=== PATIENT | female | born 1945 | race Caucasian/White ===

== ENCOUNTER → 2018-01-08 12:12 | Outpatient (CLI) | payer MEDICARE, SELFPAY ==
--- NOTE | 2018-01-08 12:37 | EKG12_ITS ---
Test Reason : PREOP Blood Pressure : / mmHG Vent. Rate : 068 BPM Atrial Rate : 068 BPM P-R Int : 170 ms QRS Dur : 106 ms QT Int : 436 ms P-R-T Axes : 066 -33 028 degrees QTc Int : 463 ms Sinus rhythm with frequent Premature ventricular complexes Left axis deviation Incomplete right bundle branch block Inferior infarct , age undetermined Abnormal ECG Confirmed by DIANE BRAXTON [id number]), writer editor RAJEEV ELIZABETH ([id number]) on 01/21/2018 4:55:45 PM Referred By: Vaughn Ramos Confirmed By:DIANE BRAXTON
[2018-01-08 13:25] LABS: Hematocrit 41.7 % (37-47); Hemoglobin 13.9 g/dl (12.0-15.0); Mean Corp Hgb Conc 33.3 g/gl (32-36); Mean Corpuscular Hgb 30.9 pg (27.0-32.0); Mean Corpuscular Volume 92.7 fL (81-99); Mean Platelet Vol. 10.9 fl (6.2-12.0); Platelet Count 227 K/mm3 (150-450); RBC Distribution Width CV 13.2 % (11.6-14.6); RBC Distribution Width SD 44.9 fl (35.1-43.9); White Blood Count 6.3 K/mm3 (4.4-11.0)
[2018-01-08 13:26] LABS: Scan Indicated on CBC? Y/N NO
[2018-01-08 13:47] LABS: Anion Gap 11 (5-15); BUN 11 mg/dL (7-18); BUN/Creat Ratio 13.8 RATIO (10-20); Calcium,Total 8.5 mg/dL (8.5-10.1); Chloride 106 mmol/L (98-107); EST Glomerular Filtration Rate 75 mL/min (>60); Est Glom Filt Rate - Afr Amer 91 mL/min (>60); Glucose 134 mg/dL (74-106); Sodium Level 141 mmol/L (136-145)
== END ==
PROVIDERS: Family Provider Family Medicine; PCP Family Medicine; Visit Provider Orthopaedic Surgery
DX: Z01.818 Encounter for other preprocedural examination (principal); Z01.810 Encounter for preprocedural cardiovascular examination
CPT/HCPCS: 36415; 80048; 85027; 93005

== ENCOUNTER → 2018-04-08 10:52 | Outpatient (CLI) | payer MEDICARE, SELFPAY | PROVIDERS: Family Provider Family Medicine; PCP Family Medicine; Visit Provider Internal Medicine Cardiovascular Disease | DX: I49.3 Ventricular premature depolarization (principal) | CPT/HCPCS: 93225; 93226 ==

== ENCOUNTER → 2018-05-14 10:55 | Outpatient (CLI) | payer MEDICARE, SELFPAY ==
[2018-05-14 12:35] LABS: AST(SGOT) 34 U/L (15-37); Alanine Aminotransfer ALT/SGPT 37 U/L (13-56); Albumin, Serum 3.9 g/dL (3.2-5.0); Alkaline Phosphatase 128 U/L (45-117); Bilirubin, Direct 0.35 mg/dL (0.00-0.30); Cholesterol 177 mg/dL (200); Globulin 3.5 g/dL (2.2-4.2); High Density Lipoprotein 70 mg/dL; Protein, Total 7.4 g/dL (6.4-8.2); Triglycerides 108 mg/dL; Very Low Density Lipoprotein 22 mg/dL (5-40)
[2018-05-14 16:03] LABS: Glucose, Dipstick Normal (Normal); Ketone-Dipstick Negative (Negative); Leukocyte Esterase-Dipstick 25 /ul (Negative); Nitrite-Dipstick Negative (Negative); Occult Blood-Urine Negative /ul (Negative); Protein-Dipstick Negative (Negative); Urine Bilirubin Dipstick Negative (Negative); Urine Urobilinogen Normal (Normal)
[2018-05-14 16:12] LABS: Color, Urine Yellow (Yellow); Urine Clarity Clear (Clear)
== END ==
PROVIDERS: Family Provider Family Medicine; PCP Family Medicine; Visit Provider Family Medicine
DX: E78.5 Hyperlipidemia, unspecified (principal); R30.0 Dysuria
CPT/HCPCS: 36415; 80061; 80076; 81002; 87077; 87086; 87088; 87186

== ENCOUNTER → 2018-07-09 09:59 | Outpatient (CLI) | payer MEDICARE, SELFPAY ==
--- NOTE | 2018-07-09 10:04 | BI_ITS ---
MAMMOGRAPHY - BILATERAL SCREENING REASON FOR EXAM: Female, 73 years old. Routine annual screening examination. PERTINENT HISTORY: Non-contributory. Remote left Sterotactic breast biopsy. TECHNIQUE: Digital bilateral breast onur (3D mammographic acquisition) in the CC and MLO projections. 2-D mediolateral oblique (MLO) and craniocaudad (CC) views of both breasts were obtained. CAD: Full Field Digital Mammography with Computer Added Detection was performed. COMPARISON: Comparison is made with prior study dated November 28, 2016 and August 12, 2015. FINDINGS: Breast Composition: There are scattered areas of fibroglandular density. There are no dominant masses or suspicious calcifications. A tissue clip marker is seen in the upper lateral portion of the left breast. A tiny residual nodule is seen at the biopsy site. Stable small benign-appearing bilateral axillary lymph nodes. No other significant abnormalities are identified. There has been no significant change since the prior study. BI/SCREENING MAMM (CAD), BILAT IMPRESSION: Stable bilateral screening mammogram. Yearly follow-up mammogram recommended. (A) ASSESSMENT CATEGORY: BIRADS Category 2: Benign. A letter regarding these results will be sent to the patient by the facility within 30 days. Approximately 10% of breast cancers are not detected by mammography. A normal mammogram should not delay biopsy of a clinically suspicious abnormality. [id number] Electronically Signed: Rohan Donnelly MD at 12:39 EST Tel [phone], Service support ,
== END ==
PROVIDERS: Family Provider Family Medicine; PCP Family Medicine; Referring Provider Family Medicine; Visit Provider Family Medicine
DX: Z12.31 Encounter for screening mammogram for malignant neoplasm of breast (principal)
CPT/HCPCS: 77063; 77067

== ENCOUNTER → 2019-02-20 08:39 | Outpatient (CLI) | payer MEDICARE, SELFPAY ==
[2018-04-02 13:11] VITALS: BMI 23.8
[2019-02-20 10:11] LABS: Absolute Lymphocyte Count 2.42 X10^3/ul (0.83-4.51); Absolute Neutrophil Count 2.2 X10^3/uL (2.0-7.7); Basophil# 0.05 X10^3/uL; Eosinophil# 0.18 X10^3/uL; Eosinophils% 3.5 % (0-5); Hematocrit 43.1 % (37-47); Hemoglobin 14.8 g/dl (12.0-15.0); Lymphocyte # 2.42 X10^3/ul (4.0); Lymphocyte % 46.7 % (19-41); Mean Corp Hgb Conc 34.3 g/gl (32-36); Mean Corpuscular Volume 90.2 fL (81-99); Mean Platelet Vol. 10.9 fl (6.2-12.0); Monocyte# 0.37 X10^3/uL; Monocyte% 7.1 % (0-10); Neutrophil # 2.16 X10^3/uL (2.7-7.7); Neutrophil % 41.7 % (47-70); Platelet Count 212 K/mm3 (150-450); RBC Distribution Width CV 12.8 % (11.6-14.6); RBC Distribution Width SD 41.7 fl (35.1-43.9); Red Blood Count 4.78 M/mm3 (4.2-5.4); White Blood Count 5.2 K/mm3 (4.4-11.0)
[2019-02-20 10:14] LABS: POSITIVE COUNT NO; POSITIVE DIFFERENTIAL NO; POSITIVE MORPHOLOGY NO
[2019-02-20 10:40] LABS: ALB/GLOB Ratio 1.2 RATIO (0.9-2.4); AST(SGOT) 22 U/L (15-37); Alanine Aminotransfer ALT/SGPT 19 U/L (13-56); Alkaline Phosphatase 89 U/L (45-117); Anion Gap 6 (5-15); BUN 20 mg/dL (7-18); Chloride 107 mmol/L (98-107); Cholesterol 218 mg/dL (200); Creatinine, Serum 0.87 mg/dL (0.55-1.02); EST Glomerular Filtration Rate 68 mL/min (>60); Est Glom Filt Rate - Afr Amer 82 mL/min (>60); Globulin 3.2 g/dL (2.2-4.2); Glucose 91 mg/dL (74-106); High Density Lipoprotein 66 mg/dL; Potassium 4.3 mmol/L (3.5-5.1); Protein, Total 7.2 g/dL (6.4-8.2); Sodium Level 139 mmol/L (136-145); Thyroid Stim Hormone (TSH) 2.24 uIU/mL (0.358-3.74); Triglycerides 119 mg/dL; Very Low Density Lipoprotein 24 mg/dL (5-40)
== END ==
PROVIDERS: Family Provider Family Medicine; PCP Family Medicine; Referring Provider Family Medicine; Visit Provider Family Medicine
DX: E78.5 Hyperlipidemia, unspecified (principal); E80.6 Other disorders of bilirubin metabolism; Z51.81 Encounter for therapeutic drug level monitoring
CPT/HCPCS: 36415; 80053; 80061; 84443; 85025

== ENCOUNTER → 2019-10-07 13:11 | Outpatient (CLI) | payer MEDICARE, SELFPAY ==
[2019-04-18 11:53] VITALS: BMI 23.7
[2019-10-07 15:30] LABS: Cholesterol 217 mg/dL (200); High Density Lipoprotein 69 mg/dL; Triglycerides 171 mg/dL; Very Low Density Lipoprotein 34 mg/dL (5-40)
== END ==
PROVIDERS: PCP Family Medicine; Referring Provider Family Medicine; Visit Provider Family Medicine
DX: E78.5 Hyperlipidemia, unspecified (principal)
CPT/HCPCS: 36415; 80061

== ENCOUNTER → 2019-10-21 08:32 | Outpatient (CLI) | payer MEDICARE, SELFPAY ==
[2019-04-18 11:53] VITALS: BMI 23.7
--- NOTE | 2019-10-21 08:35 | BI_ITS ---
MAMMOGRAPHY - BILATERAL SCREENING REASON FOR EXAM: Female, 74 years old. Routine annual screening examination. PERTINENT HISTORY: Non-contributory. Remote left stereotactic breast biopsy. TECHNIQUE: Digital bilateral breast alton (3D mammographic acquisition) in the CC and MLO projections. 2-D mediolateral oblique (MLO) and craniocaudad (CC) views of both breasts were obtained. CAD: Full Field Digital Mammography with Computer Added Detection was performed. COMPARISON: Comparison is made with prior study dated July 09, 2018 and November 28, 2016. FINDINGS: Breast Composition: There are scattered areas of fibroglandular density. There are no dominant masses or suspicious calcifications. A tissue clip marker is once again seen in the upper lateral aspect of the left breast. Stable small benign-appearing bilateral axillary lymph nodes. No other significant abnormalities are identified. There has been no significant change since the prior study. BI/SCREEN MAMM (CAD) W/ALTON BILAT IMPRESSION: Stable bilateral screening mammogram. Yearly follow-up mammogram recommended. (A) ASSESSMENT CATEGORY: BIRADS Category 2: Benign. A letter regarding these results will be sent to the patient by the facility within 30 days. Approximately 10% of breast cancers are not detected by mammography. A normal mammogram should not delay biopsy of a clinically suspicious abnormality. [id number] Electronically Signed: Rohan Donnelly, at 12:35 EDT , Service support ,
--- NOTE | 2019-10-21 08:57 | BD_ITS ---
STUDY: DUAL ENERGY X-RAY ABSORPTIOMETRY / DXA REASON FOR EXAM: Female, 74 years old. 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 COMPARISON: Comparison is made with prior examination dated November 28, 2016. FINDINGS: Lumbar Spine (L1-L4): g/cm2 (0.879) / T-score (-2.4) / Z-score (-0.6) Findings are suggestive of osteopenia with a high fracture risk. Left Femur Total: g/cm2 (0.859) / T-score (-1.2) / Z-score (0.5) Left Femoral Neck: g/cm2 (0.804) / T-score (-1.7) / Z-score (0.2) Right Femur Total: g/cm2 (0.834) / T-score (-1.4) / Z-score (0.3) Right Femoral Neck: g/cm2 (0.817) / T-score (-1.6) / Z-score (0.3) The T-Scores on the most recent prior examination were: Lumbar Spine (L1-L4): There has been worsening of bone density since the previous examination. Left Femur Total: which represents a worsening of 2.3%. Right Femur Total: which represents a worsening of 1.4%. BD/Dexa Bone Density Study IMPRESSION: The patient is considered osteopenic as outlined below according to World Satya Organization (WHO) criteria with a high fracture risk. There has been worsening of bone density since the previous examination. Reference Information: The T-score is the number of standard deviations above or below the standard which is normal for young adults at their peak bone mineral density. The World Health Organization (WHO) interprets the T-scores as follows: Above -1 Normal bone density Between -1 and -2.5 Osteopenia Equal to / or below -2.5 Osteoporosis As a practical clinical guideline, osteopenia may be graded as follows: Mild -1 through -1.5 Moderate -1.6 through -2.0 Severe -2.1 through -2.4 The Z-score is the number of standard deviations above or below age-matched controls. A Z-score of less than -1.5 would be considered abnormal. References: 1. NIH Osteoporosis and Related Bone Diseases http://www.osteo.org 2. International Society for Clinical Densitometry http://www.iscd.org 3. National Osteoporosis Foundation http://www.nof.org Electronically Signed: Rohan Donnelly, at 10:20 EDT , Service support ,
== END ==
PROVIDERS: PCP Family Medicine; Referring Provider Family Medicine; Visit Provider Family Medicine
DX: Z13.820 Encounter for screening for osteoporosis (principal); Z78.0 Asymptomatic menopausal state; Z12.31 Encounter for screening mammogram for malignant neoplasm of breast
CPT/HCPCS: 77063; 77067; 77080

== ENCOUNTER → 2019-10-31 11:10 | Outpatient (CLI) | payer MEDICARE, SELFPAY ==
[2019-04-18 11:53] VITALS: BMI 23.7
[2019-10-31 13:05] LABS: Vitamin D,25 Hydroxy 23.7 ng/mL
== END ==
PROVIDERS: PCP Family Medicine; Visit Provider Family Medicine
DX: M85.80 Other specified disorders of bone density and structure, unspecified site (principal)
CPT/HCPCS: 36415; 82306

== ENCOUNTER 2019-12-16 11:30 | Emergency (ER) | payer MEDICARE, SELFPAY ==
[2019-11-04 14:32] VITALS: BMI 24.9
[2019-12-16 11:31] VITALS: BP 145/100; PULSE 73; RESP 16; TEMP 36.6; O2SAT 98; BMI 25.6
--- NOTE | 2019-12-16 11:45 | ED.VISSUMM ---
- ER Visit Summary Date of Service: 12/16/19 Chief Complaint: Right knee pain History of Present Illness: The patient is a [address] Brizuela. She reports that just prior to coming emerge department she was loading shingles into a wearable area when it tipped over and caught the lateral portion of her right knee. She did fall. She denies any other injuries. No loss of consciousness. She not on anticoagulants. No neck, back, shoulder, hip or wrist pain. Patient reports that she has a dull, aching pain lateral right knee that is 8 out of 10 at worst and 5-10 currently. Is worsened by movement relieved by rest. She denies any other complaints. Physical Examination: Vitals: Stable. Afebrile. Neck: No vertebral tenderness. Full ROM without difficulty. Cleared by NEXUS criteria. Back: No vertebral tenderness. General: A&O x 3. NAD. Cardiovascular exam: Regular rate and rhythm, no murmur, rub or gallop. Respiratory exam: Chest nontender. No crepitus. Clear to auscultation bilaterally. No wheezes or stridor. Abdominal exam: Soft, nontender, nondistended, normal bowel sounds. No pain in RUQ or LUQ specifically. No peritoneal signs. Extremity: Moderate tenderness palpation over the lateral right knee. Mild diffuse tenderness outpatient. There is a moderate joint effusion. She is neuro vas intact distal this. Test Results: Clinical Impression(s) from Imaging Studies Knee X-Ray 12/16/19 11:55 IMPRESSION: Nondisplaced lateral tibial plateau fracture. Joint effusion with a fat -fluid level. Electronically Signed: Rohan Donnelly, at 12:13 EDT , Service support , Lower Extremity CT 12/16/19 12:24 IMPRESSION: Subtle nondisplaced lateral tibial plateau fracture with a joint effusion containing a fat fluid level. Electronically Signed: Rohan Donnelly, at 12:46 EDT , Service support , Emergency Department Course and Treatment: Patient refused pain medications. She is resting comfortably. She was placed in a knee immobilizer. Treatment Plan: Patient was discussed with Dr. Miguel Angel Herrera. She will be discharged with crutches and a knee immobilizer. She instructed be nonweightbearing. Follow-up with Dr. Ramos or Miguel Angel Herrera within the next week for another exam. Return to the emergency department for any worsening symptoms. Disposition: To home in improved and stable condition. Impression: 1. Lateral right tibial plateau fracture. This note was generated with Estately dictation software. It may contain incorrect words, spelling, and punctuation that were not noted in review of the chart prior to signing ED Disposition - Plan for ED Patient: Instructions: ED Fx Knee Prescriptions: Docusate Sodium [Colace] 100 mg PO DAILY #20 capsule Hydrocodone Bitart/Apap 5-325 [[place] 5MG-325MG] 1 tablet PO Q6H PRN PRN 3 Days #10 tablet PRN Reason: Pain Referrals: Miguel Angel Herrera MD [STAFF PHYSICIAN] - 1 Week
--- NOTE | 2019-12-16 11:55 | RAD_ITS ---
STUDY: X-RAY - RIGHT KNEE REASON FOR EXAM: Female, 74 years old. PAIN AND SWELLING TO RIGHT KNEE RADIATING DISTALLY. -- PATIENT UNABLE TO BARE WEIGHT ON HER KNEE. RIGHT KNEE INJURY. FELL AND HANDLE OF WHEELBARROW CAUGHT HER IN THE RIGHT KNEE. TECHNIQUE: 4 view(s) of the knee. COMPARISON: None. FINDINGS: Normal visualized distal femur. Nondisplaced fracture of the lateral tibial plateau with extension to the intercondylar eminence. Normal proximal tibiofibular articulation. Normal medial femorotibial compartment. Normal lateral femorotibial compartment. There is mild degenerative arthrosis of the patellofemoral articulation. Joint effusion with a fat- fluid level. RAD/Knee 4 or More Views IMPRESSION: Nondisplaced lateral tibial plateau fracture. Joint effusion with a fat -fluid level. Electronically Signed: Rohan Donnelly, at 12:13 EDT , Service support ,
--- NOTE | 2019-12-16 12:24 | CT_ITS ---
STUDY: CT RIGHT KNEE WITHOUT CONTRAST REASON FOR EXAM: Female, 74 years old. RT LEG INJURY WITH WHEEL [place] RADIATION DOSAGE (If Supplied By Facility): CTDIvol = ( 15.35 ) mGy, DLP = ( 361.44 ) mGycm TECHNIQUE: Transaxial CT imaging of the knee was performed. Coronal and sagittal images were reformatted. Individualized dose optimization techniques were used for this CT. COMPARISON: None. FINDINGS: Normal medial femoral condyle and medial tibial plateau. There is preservation of the articular joint space of the medial knee compartment. Subtle nondisplaced lateral tibial plateau fracture. This extends into the intercondylar eminence. There is preservation of the articular joint space of the lateral knee compartment. Normal proximal tibiofibular articulation. Joint effusion. The quadriceps tendon is grossly normal. The patellar tendon is grossly normal. Normal Hoffa''s fat pad. The soft tissues are unremarkable. CT/Extremity Lower without Contra IMPRESSION: Subtle nondisplaced lateral tibial plateau fracture with a joint effusion containing a fat fluid level. Electronically Signed: Rohan Donnelly, at 12:46 EDT , Service support ,
[2019-12-16] MEDS: Ondansetron ODT 4 MG Tablet PO (13:36)
[2019-12-16] MEDS: HYDROcodone Bitartrate/Apap 5/325 Tablet PO (13:36)
== END 2019-12-16 14:34 | disposition home or self-care (01) ==
LOC: ED 13:23
PROVIDERS: Emergency Provider Emergency Medicine; PCP Family Medicine
DX: S82.144A Nondisplaced bicondylar fracture of right tibia, initial encounter for closed fracture (principal); W18.09XA Striking against other object with subsequent fall, initial encounter; Y93.89 Activity, other specified; Y92.9 Unspecified place or not applicable
CPT/HCPCS: 73564; 73700; 99284

== ENCOUNTER 2020-02-18 19:19 | Emergency (ER) | payer MEDICARE, SELFPAY ==
[2020-02-18 19:20] VITALS: BP 115/77; PULSE 58; RESP 18; TEMP 36.5; O2SAT 96; BMI 22.5
== END 2020-02-18 19:52 | disposition left against medical advice (07) ==
LOC: ED 20:00
PROVIDERS: Emergency Provider Emergency Medicine; PCP Family Medicine
DX: R69 Illness, unspecified (principal); Z53.21 Procedure and treatment not carried out due to patient leaving prior to being seen by health care provider

== ENCOUNTER 2020-02-19 06:58 | Emergency (ER) | payer MEDICARE, SELFPAY ==
[2020-02-18 19:20] VITALS: BMI 22.5
[2020-02-19 06:59] VITALS: BP 153/91; PULSE 55; RESP 18; TEMP 36.1; O2SAT 97; BMI 22.8
--- NOTE | 2020-02-19 07:02 | VDLE_ITS ---
Reason For Study: Swelling RIGHT LEFT GSV is normal. CFV is compressible, spontaneous, phasic, CFV is compressible, spontaneous, phasic, competent, and demonstrates normal competent and demonstrates normal augmentation. augmentation. FV is compressible, spontaneous, phasic, competent and demonstrates normal augmentation. POP V is compressible, spontaneous, phasic, competent and demonstrates normal augmentation. T/P Trunk is compressible. PTV is compressible. RT PerV is compressible. Acute deep vein thrombosis is noted in the right gastroc vein. Nonvascualrized structure noted in the popliteal space measuring approximently 1.11 x 1.50 x 2.44 cm. Procedure Exam performed portable in ED. A preliminary report was called and/or faxed to RN. Interpretation Summary Acute deep venous thrombosis right gastrocnemius veins. No evidence for proximal progression. Patent and compressible right great saphenous vein. Right popliteal space nonvascular 1.11 x 1.50 x 2.44 cm structure location silverio consistent with a Montemayor's cyst--clinical correlation would be appropriate Patent and compressible left common femoral vein Ordering Physician: Vaughn Crocker Referring Physician: Wilson Brizuela Performed By: Anitra Corrales RVT
--- NOTE | 2020-02-19 07:02 | ED.VIS.GEN ---
History of Present Illness Chief Complaint: Lower Extremity Injury Informant: Patient Onset: Days Context: Gradual Onset Timing: Continuous Current Severity: Moderate Maximum Severity: Moderate Narrative: The patient is a 74-year-old female that presents to the emergency department with atraumatic right foot swelling. Patient recently had a tibial plateau fracture and. She was treated with immobilization for about 2 months. She recently came out of her immobilizer and has been walking. She is noticed that her foot has gotten swollen. She does describe some pain when she bears weight. She denies any fevers or chills. She denies any trauma. She had x-rays done at urgent care which were negative for acute fracture. She was sent in for further evaluation due to concern for DVT. She denies chest pain or shortness of breath. She is not on anticoagulants. Prior similar symptoms: No Recent Illness/Hospitalization: Yes Past Medical History - Allergies and Home Meds Allergies/Adverse Reactions: Allergies Sulfa (Sulfonamide Antibiotics) Allergy (Verified 02/19/20 06:59) doesnt know why doesnt know why Primary Care Physician: Wilson Brizuela DO [Primary Care Provider] - 3-5 Days Prior records reviewed: Yes Past Medical History: - - Osteoporosis, hypertension Surgical History: noncontributory Lives: With Family Smoking Status: Never smoker Review of Systems General: Denies: Chills, Fever, Sweats Eyes: Denies: Visual changes - bilaterally, Diplopia ENT: Denies: Rhinorrhea, Sore throat Cardiovascular: Denies: Chest pain, Palpitations Respiratory: Denies: Dyspnea, Cough, Dyspnea on exertion Gastrointestinal: Denies: Abdominal pain, Nausea, Vomiting, Diarrhea, Melena, Hematochezia Genitourinary: Denies: Dysuria, Hematuria, Frequency Musculoskeletal: Reports: Swelling, Extremity Pain. Denies: Back pain Skin: Denies: Rash, Wounds Neurological: Denies: Headache, Weakness, Numbness Physical Exam Vital Signs/Narrative: Vital Signs Temp Pulse Resp BP Pulse Ox 02/19/20 06:59 97 F L 55 L 18 153/91 H 97 Inital Vital Signs reviewed: Yes General: Well nourished, Well developed, No Acute Distress Head: Normocephalic, Atraumatic Eyes: Perrl, EOMI ENT: Moist mucous membranes, No rhinorrhea Neck: Supple, Nontender Cardiovascular: Regular rate, Regular rhythm, No murmurs Respiratory: No distress, CTA bilaterally, Chest nontender Abdomen: Soft, Nontender, Nondistended, Normal bowel sounds Back: Nontender, Normal Inspection Extremities: Nontender, No edema Skin: Normal color, No rash Neurological: Alert, Oriented x3, Cranial nerves II-XII grossly intact, Normal Strength, Normal Sensation Psychological: Normal affect, Normal Mood Diagnostic/Tx/Re-eval - Medical Decision Making The patient presents with atraumatic foot swelling. Her pulses are normal. She really has no significant pain in the posterior calf. There is no asymmetric edema of the upper leg. However, given recent immobilization I did obtain an ultrasound. This does demonstrate a small gastrocnemius clot that is isolated. I did discuss her case with her primary physician, Dr. Brizuela. As the patient is symptomatic, I do feel most prudent plan of care would be to treat her and he is in agreement. The patient will be started on Xarelto. She was counseled on the risk of bleeding, symptoms to watch for, and reasons to return. She is comfortable with this plan of care and will be discharged home. Impression 1. Acute right gastrocnemius DVT ED Disposition - Plan for ED Patient: Instructions: ED DVT Prescriptions: Rivaroxaban [Xarelto] 15 mg PO BID #42 tab Prescription Printed Referrals: Wilson Brizuela DO [Primary Care Provider] - 3-5 Days
[2020-02-19 08:52] VITALS: BP 145/81; PULSE 76; RESP 16; O2SAT 95
== END 2020-02-19 08:53 | disposition home or self-care (01) ==
LOC: ED 07:39
PROVIDERS: Emergency Provider Emergency Medicine; PCP Family Medicine
DX: I82.4Z1 Acute embolism and thrombosis of unspecified deep veins of right distal lower extremity (principal); I10 Essential (primary) hypertension; M81.0 Age-related osteoporosis without current pathological fracture
CPT/HCPCS: 93971; 99282

== ENCOUNTER → 2020-03-19 13:39 | Outpatient (CLI) | payer MEDICARE, SELFPAY ==
[2020-02-19 06:59] VITALS: BMI 22.8
[2020-03-19 15:05] LABS: Absolute Lymphocyte Count 2.28 X10^3/uL (0.83-4.51); Absolute Neutrophil Count 3.8 X10^3/uL (2.0-7.7); Basophil# 0.02 X10^3/uL; Basophil% 0.3 % (0-1); Eosinophil# 0.17 X10^3/uL; Eosinophils% 2.5 % (0-5); Hematocrit 43.1 % (37-47); Hemoglobin 14.2 g/dL (12.0-15.0); Lymphocyte # 2.28 X10^3/ul (4.0); Lymphocyte % 33.8 % (19-41); Mean Corp Hgb Conc 32.9 g/dL (32-36); Mean Corpuscular Hgb 31.3 pg (27.0-32.0); Mean Corpuscular Volume 94.9 fL (81-99); Mean Platelet Vol. 10.5 fl (6.2-12.0); Monocyte# 0.48 X10^3/uL; Monocyte% 7.1 % (0-10); NRBC Flagged by Analyzer 0 % (0-5); Neutrophil # 3.78 X10^3/uL (2.7-7.7); Neutrophil % 56.2 % (47-70); Platelet Count 230 K/mm3 (150-450); RBC Distribution Width CV 12.9 % (11.6-14.6); RBC Distribution Width SD 44.4 fl (35.1-43.9); Red Blood Count 4.54 M/mm3 (4.2-5.4); White Blood Count 6.7 K/mm3 (4.4-11.0)
[2020-03-19 15:40] LABS: ALB/GLOB Ratio 1.2 RATIO (0.9-2.4); AST(SGOT) 21 U/L (15-37); Albumin, Serum 3.8 g/dL (3.2-5.0); Alkaline Phosphatase 110 U/L (45-117); BUN 17 mg/dL (7-18); BUN/Creat Ratio 23.4 RATIO (10-20); Calcium,Total 9.2 mg/dL (8.5-10.1); Creatinine, Serum 0.73 mg/dL (0.55-1.02); EST Glomerular Filtration Rate 83 mL/min (>60); Est Glom Filt Rate - Afr Amer 100 mL/min (>60); Globulin 3.3 g/dL (2.2-4.2); Glucose 91 mg/dL (74-106); Protein, Total 7.1 g/dL (6.4-8.2); Vitamin D,25 Hydroxy 44.1 ng/mL
[2020-03-19 15:41] LABS: Alanine Aminotransfer ALT/SGPT 23 U/L (13-56); Anion Gap 2 (5-15); Chloride 110 mmol/L (98-107); Potassium 4.1 mmol/L (3.5-5.1); Sodium Level 141 mmol/L (136-145)
== END ==
PROVIDERS: PCP Family Medicine; Visit Provider Family Medicine
DX: Z51.81 Encounter for therapeutic drug level monitoring (principal); E55.9 Vitamin D deficiency, unspecified; E80.6 Other disorders of bilirubin metabolism
CPT/HCPCS: 36415; 80053; 82306; 85025

== ENCOUNTER 2021-04-11 11:00 | Outpatient (RCR) | payer MEDICARE, SELFPAY ==
--- NOTE | 2021-03-09 11:41 | HP.PTEVAL ---
Patient's Visit Information SUSAN BURRELL is a 75 year old F referred to Physical Therapy by Dr. Wilson Brizuela DO with a diagnosis of CHRONIC NECK PAIN. Date of Evaluation: 03/09/21 Physical Therapist: Myranda Noe PT, Cert MDT - Visit Plan Frequency: 2-3x /Week Duration: 4-6 Weeks Plan: CERVICAL TX. POSTURE CORRECTION/STRENGTHENING, INSTRUCTION IN APPROPRIATE BODY MECHANICS AND ACTIVITY MODIFICATIONS. BRANDEN UE ROM, STRETCHING AND STRENGTHENING. HEP INSTRUCTION. CONSIDER: REP RET IN SITTING. REP RET IN LYING. SCAP SQUEEZES. DEEP NECK FLEXOR LIFT. PRONE W'S. UE WALL SLIDES. PRONE ROWS. UE TBAND WALL WALKS. ANTERIOR/MIDDLE SCALENE STRETCH. UPPER TRAP STRETCH. LEVATOR SCAPULAE STRETCH. CHEST/PEC MAJOR AND MINOR STRETCH - Subjective Work/Leisure: RETIRED. Present symptoms: STIFF NECK. BRANDEN SHLD PAIN L > R. HEADACHES. Present since: A FEW MONTHS AGO. HAS HAD THIS PROBLEM BEFORE, TRACTION HELPED AND NOW COMING BACK. Pain Scale: Worst - 4/10 Least - 4/10. Currently: 4/10. 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 EMOTIONALLY AND PHYSICALLY STRESSFUL CARING FOR SISTER THAT HAS ALZHEIMERS DZ. Symptoms at onset: HEADACHE. Worse: READING, SLEEPING (CONSTANTLY WAKING UP AND MOVING AROUND TRYING TO GET COMFORTABLE). Better: NOTHING. HAS TRIED HEAT AND COLD. Disturbed sleep: YES. Previous history/Previous treatment: PT IN THE PAST WITH BENEFIT. CHIROPRACTOR DID NOT HELP. NO NECK SX. NO SHLD SX. This episode: CONSULT WITH DR. BRIZUELA. PT CONSULT ORDERED. Dizziness: NO. Tinnitis: NO. Nausea: NO. Shortness of Breath: NO. Difficulty Swollowing: NO. Gait: NORMAL. Unexplained weight loss: NO. Imaging: NONE RECENT. PMH/Recent major surgery: HIGH CHOLESTEROL. OSTEOPOROSIS. LIFTING A WHEEL [place] WITH SHINGLES AND IT TIPPED OVER ON RIGHT LEG AND FX'D R TIBIA - RECOVERED. L FOOT INJURY FROM PAST - REVOVERED TOO. - Objective Sitting Posture: POOR. Standing Posture: POOR. Forward head: YES. Torticollis: NO. Active Correction of Sitting Posture: NO EFFECT. Other Observations: INCREASED KYPHOSIS. Motor deficit: RUE 5/5 AND LEFT 4/5 WITH MMT OF SHOULDER. BRANDEN ELBOWS 5/5. PATIENT IS RIGHT HAND DOMINANT. Sensory deficit: NO. ROM deficit: BRANDEN SHOULDER FLEX TO 140 DEG. Reflexes: 2/2. Dural Signs: NEGATIVE. Cervical mvmt loss: flex - NIL. ext - MOD. pro - NIL. ret - MOD TO LETITIA. R SB - MOD TO LETITIA L SB - MOD. R ROT - MOD. L ROT - LETITIA. Palpation: INCREASED MUSCLE TONE BILATERAL UPPER TRAPS. DISTRACTION TESTING: NO EFFECT BUT PATIENT REPORTS TRACTION GOT HER PAINFREE LAST TIME. OTHER: POSTURAL WEAKNESS. TREATMENT: PATIENT WAS SEEN TODAY FOR MECHANICAL CERVICAL TRACTION X 15 MIN AT 16LBS ON/ 8LBS OFF, 45S ON/ 30S OFF X 15 MIN TODAY. GREAT RESPONSE TO TRACTION. UPON EXAM TODAY THERE ARE REALLY NO SIGNIFICANT CHANGES EXCEPT C/O RETURN OF PAIN AND PATIENT REPORTS MAYBE A LITTLE MORE PAIN INTO RIGHT SHLD NOW TOO. SHE HAS NOT CONTINUED HER HEP BUT SHE IS DOING WATER EX 3 TIMES A WEEK. I AM HOPEFUL THAT WE CAN GET HER BACK ON A GOOD HEP FOR HER NECK AND WILL ENCOURAGE HER TO CONTINUE IF BENEFICIAL. POC DISCUSSED WITH PATIENT AND SHE IS AGREEABLE. Sitting Posture/Standing Posture: Active Correction of posture: Other Observations: Motor deficit: Sensory deficit: ROM deficit: Reflexes: Dural Signs: Cervical Mvmt Loss: Flex: Pro: Ext: Ret: RSB: LSB: R Rot: L Rot: Postural strength: Palpation: TREATMENT: NEUROMUSCULAR REEDUCATION - RETRAINING OF MVMT AND POSTURE FOR SITTING, LYING AND STANDING ACTIVITIES. - Balance/Special Test Scores Oswestry Neck Score: 12 - Goals Goal 1:: DECREASE C/O BRANDEN NECK AND SHLD PAIN. Goal Time Frame: 4-6 Weeks Goal 2:: IMPROVE READING, SLEEP, WORK, DRIVING AND RECREATIONAL FUNCTION Goal Time Frame: 4-6 Weeks Goal 3:: INSTRUCT IN PROPHYLAXIS Goal Time Frame: 4-6 Weeks - Anticipated Interventions Patient/Client Instruction: Educate patient on: Condition, Plan of Care, Risk Factors For the Purpose of:: To improve self management Therapeutic Exercise to Include: Strength training, Body mechanics, Postural training, Flexibilty training, Neuromotor development, Scapular Strength/Stabilization For the Purpose of:: To decrease pain, To improve muscle performance and motor function, To increase tolerance to activity/condition/position, To improve ability of physical actions for home/community/work/leisure Intermittent cervical traction: Yes For the Purpose of:: To decrease pain, To increase ROM Thank you for the opportunity to evaluate your patient. For Medicare and Medicare HMO plans, please review the plan of care and approve it. It will need to be FAXED BACK to us at [phone] for Medicare purposes. For Medicare only, by signing this I certify the plan of care. Please let me know if there are questions or concerns regarding this plan of care. Physician Signature: Date:
--- NOTE | 2021-04-11 11:32 | HP.PTDCSUM ---
It has been my pleasure to treat SUSAN BURRELL referred by Dr. Wilson Brizuela DO, with the diagnosis of CHRONIC NECK PAIN for a total of 8 visit(s). Discharge Date: 04/11/21 Please see the following information for a summary of their discharge status. Subjective: PATIENT REPROTS SHE DOESN'T HAVE PAIN INTO HER SHOULDER ANY MORE AND NOW SHE JUST HAS A LITTLE DISCOMFORT IN HER NECK. PATIENT REPORTS HER SYMPTOMS ARE MANAGEABLE NOW. % Improvement: 90 Objective/Function: PATIENT WAS SEEN TODAY FOR RE-ASSESSMENT OF PROGRESS TOWARD THE SET PT GOALS AND THE NEED FOR FURTHER PHYSICAL THERAPY VS READINESS FOR DISCHARGE. ALL GOALS HAVE BEEN MET. PATIENT REPORTS DECREASED PAIN, INCREASED ROM AND AND IS INDEP WITH A HEP. UPON EXAM TODAY: Cervical mvmt loss: flex - NIL. ext - MOD. pro - NIL. ret - MOD. R SB - MOD L SB - MOD. R ROT - MOD. L ROT - MOD. Goal 1:: DECREASE C/O BRANDEN NECK AND SHLD PAIN. Goal Progress: Goal Met Goal 2:: IMPROVE READING, SLEEP, WORK, DRIVING AND RECREATIONAL FUNCTION Goal Progress: Goal Met Goal 3:: INSTRUCT IN PROPHYLAXIS Goal Progress: Goal Met Plan: D/C TO INDEP EX. PATIENT IS AGREEABLE. If there are questions or concerns regarding this patient's physical therapy, please feel free to call me at [phone]. Thank you for the referral of this patient. Sincerely, Myranda Noe, PT, Cert MDT Balance/Gait/Functional tests - Balance/Special Test Scores Oswestry Neck Score: 2
== END 2021-04-11 19:00 | disposition home or self-care (01) ==
LOC: PT 11:00
PROVIDERS: PCP Family Medicine; Referring Provider Family Medicine; Visit Provider Family Medicine
DX: M54.2 Cervicalgia (principal); G89.29 Other chronic pain
CPT/HCPCS: 97012; 97162; 97164; 97530

== ENCOUNTER 2021-11-22 10:48 | Outpatient (CLI) | payer MEDICARE, SELFPAY ==
--- NOTE | 2021-11-22 10:50 | BI_ITS ---
MAMMOGRAPHY - BILATERAL SCREENING REASON FOR EXAM: Female, 76 years old. Routine annual screening examination. PERTINENT HISTORY: Non-contributory. Remote left stereotactic breast biopsy. TECHNIQUE: Digital bilateral breast alton (3D mammographic acquisition) in the CC and MLO projections. 2-D mediolateral oblique (MLO) and craniocaudad (CC) views of both breasts were obtained. CAD: Full Field Digital Mammography with Computer Added Detection was performed. COMPARISON: Comparison is made with prior study dated 10/21/2019 and 07/09/2018. FINDINGS: Breast Composition: There are scattered areas of fibroglandular density. There are no dominant masses or suspicious calcifications. A tissue clip marker is once again seen in the upper lateral aspect of the left breast Stable benign-appearing bilateral axillary nodes. No other significant abnormalities are identified. There has been no significant change since the prior study. BI/SCRN MAMM (CAD)W/ALTON BILAT IMPRESSION: Stable bilateral screening mammogram. Yearly follow-up mammogram recommended. (A) ASSESSMENT CATEGORY: BIRADS Category 2: Benign. A letter regarding these results will be sent to the patient by the facility within 30 days. Approximately 10% of breast cancers are not detected by mammography. A normal mammogram should not delay biopsy of a clinically suspicious abnormality. [id number] Electronically Signed: Rohan Donnelly MD at 12:04 EDT ,
--- NOTE | 2021-11-22 11:06 | BD_ITS ---
STUDY: DUAL ENERGY X-RAY ABSORPTIOMETRY / DXA REASON FOR EXAM: Female, 76 years old. M810. The patient is postmenopausal. TECHNIQUE: Bone Mineral Density (BMD) measurements of lumbar spine and bilateral hips were obtained. COMPARISON: Comparison is made with prior study of 10/21/2019. FINDINGS: Lumbar Spine (L1-L4): g/cm2 (0.840) / T-score (-1.6) / Z-score (0.8) Findings are suggestive of osteopenia with a moderate fracture risk. Left Femur Total: g/cm2 (0.827) / T-score (0.9) / Z-score (0.9) Left Femoral Neck: g/cm2 (0.684) / T-score (-1.5) / Z-score (0.7) Right Femur Total: g/cm2 (0.820) / T-score (-1.0) / Z-score (0.9) Right Femoral Neck: g/cm2 (0.684) / T-score (-1.5) / Z-score (0.7) The T-Scores on the most recent prior examination were: Lumbar Spine (L1-L4): There has been improvement of bone density since the previous examination. Left Femur Total: which represents an improvement of 3.8%. Right Femur Total: which represents an improvement of 6%. BD/Dexa Bone Density Study IMPRESSION: The patient is considered osteopenic as outlined below according to World Satya Organization (WHO) criteria with a moderate fracture risk. There has been improvement of bone density since the previous examination. Reference Information: The T-score is the number of standard deviations above or below the standard which is normal for young adults at their peak bone mineral density. The World Health Organization (WHO) interprets the T-scores as follows: Above -1 Normal bone density Between -1 and -2.5 Osteopenia Equal to / or below -2.5 Osteoporosis As a practical clinical guideline, osteopenia may be graded as follows: Mild -1 through -1.5 Moderate -1.6 through -2.0 Severe -2.1 through -2.4 The Z-score is the number of standard deviations above or below age-matched controls. A Z-score of less than -1.5 would be considered abnormal. References: 1. NIH Osteoporosis and Related Bone Diseases www osteo.org 2. International Society for Clinical Densitometry www iscd.org 3. National Osteoporosis Foundation www nof.org Electronically Signed: Rohan Donnelly MD at 15:17 EDT ,
== END 2021-11-22 23:59 | disposition home or self-care (01) ==
LOC: OPBD 10:48
PROVIDERS: PCP Family Medicine; Referring Provider Family Medicine; Visit Provider Family Medicine
DX: Z12.31 Encounter for screening mammogram for malignant neoplasm of breast (principal); M81.0 Age-related osteoporosis without current pathological fracture
CPT/HCPCS: 77063; 77067; 77080

== ENCOUNTER → 2022-08-01 | Outpatient (CLI) | payer MEDICARE, SELFPAY ==
[2022-08-01 15:30] LABS: Absolute Lymphocyte Count 2.16 X10^3/uL (0.83-4.51); Absolute Neutrophil Count 5.4 X10^3/uL (2.0-7.7); Basophil# 0.02 X10^3/uL; Basophil% 0.2 % (0-1); Eosinophil# 0.14 X10^3/uL; Eosinophils% 1.7 % (0-5); Hematocrit 45.6 % (37-47); Hemoglobin 15.2 g/dL (12.0-15.0); Lymphocyte # 2.16 X10^3/ul (0.83-4.51); Lymphocyte % 25.9 % (19-41); Mean Corp Hgb Conc 33.3 g/dL (32-36); Mean Corpuscular Hgb 31.1 pg (27.0-32.0); Mean Corpuscular Volume 93.4 fL (81-99); Monocyte# 0.59 X10^3/uL; Monocyte% 7.1 % (0-10); NRBC Flagged by Analyzer 0 % (0-5); Neutrophil # 5.37 X10^3/uL (2.7-7.7); Neutrophil % 64.5 % (47-70); Platelet Count 208 K/mm3 (150-450); RBC Distribution Width CV 13.1 % (11.6-14.6); RBC Distribution Width SD 44.6 fl (35.1-43.9); Red Blood Count 4.88 M/mm3 (4.2-5.4); White Blood Count 8.3 K/mm3 (4.4-11.0)
[2022-08-01 16:11] LABS: Vitamin B12 411 pg/mL (211-911); Vitamin D,25 Hydroxy 35.2 ng/mL
[2022-08-01 16:17] LABS: ALB/GLOB Ratio 1.2 RATIO (0.9-2.4); AST(SGOT) 30 U/L (15-37); Alanine Aminotransfer ALT/SGPT 43 U/L (13-56); Albumin, Serum 3.7 g/dL (3.2-5.0); Alkaline Phosphatase 71 U/L (45-117); Anion Gap 7 (5-15); BUN 24 mg/dL (7-18); BUN/Creat Ratio 28.3 RATIO (10-20); Calcium,Total 9.2 mg/dL (8.5-10.1); Chloride 105 mmol/L (98-107); Cholesterol 267 mg/dL (200); Creatinine, Serum 0.85 mg/dL (0.55-1.02); EST Glomerular Filtration Rate 69 mL/min (>60); Est Glom Filt Rate - Afr Amer 83 mL/min (>60); Globulin 3.2 g/dL (2.2-4.2); Glucose 90 mg/dL (74-106); High Density Lipoprotein 98 mg/dL; Magnesium 2.5 mg/dL (1.6-2.6); Potassium 4.4 mmol/L (3.5-5.1); Protein, Total 6.9 g/dL (6.4-8.2); Sodium Level 139 mmol/L (136-145); Thyroid Stim Hormone (TSH) 0.91 uIU/mL (0.358-3.74); Triglycerides 93 mg/dL; Very Low Density Lipoprotein 19 mg/dL (5-40)
== END | disposition home or self-care (01) ==
LOC: BFHLAB 14:01
PROVIDERS: PCP Family Medicine; Visit Provider Family Medicine
DX: E78.5 Hyperlipidemia, unspecified (principal); E55.9 Vitamin D deficiency, unspecified; E80.6 Other disorders of bilirubin metabolism; R53.83 Other fatigue; T47.1X5A Adverse effect of other antacids and anti-gastric-secretion drugs, initial encounter
CPT/HCPCS: 36415; 80053; 80061; 82306; 82607; 83735; 84443; 85025

== ENCOUNTER → 2022-10-09 | Outpatient (CLI) | payer MEDICARE, SELFPAY ==
--- NOTE | 2022-10-09 12:45 | ECHOD_ITS ---
Reason For Study: ARRYTHMIA Procedure This was a 2D Doppler, Color Flow transthoracic echocardiogram. Exam performed in department. Left Ventricle Normal LV size. Left ventricular systolic function is normal. The estimated ejection fraction is 60 %. Stage 1 diastolic dysfunction. No regional wall motion abnormalities noted. Right Ventricle Normal RV size. Normal systolic function. Atria Normal left atrium. Normal right atrium. Mitral Valve Mitral valve doming/Hockey Sticking. Tricuspid Valve Normal tricuspid valve. Mild tricuspid valve insufficiency. Pulmonary artery systolic pressure is 26 mmHg. Aortic Valve Trisinus/trileaflet aortic valve. Pulmonic Valve Normal pulmonic valve. Great Vessels Normal aortic root. The pulmonary artery is normal size. Normal inferior vena cava. Pericardium/Pleural No pericardial effusion. MMode/2D Measurements & Calculations LVIDd: 4.0 cm IVSd: 1.0 cm Ao root diam: 3.0 cm LVIDs: 2.1 cm LVPWd: 1.2 cm RVDd: 3.2 cm FS: 48.6 % LAV(MOD-sp4): 83.8 ml LVAd ap4: 21.1 cm2 SV(MOD-sp4): 26.6 ml LVLd ap4: 7.4 cm EDV(MOD-sp4): 54.1 ml EDV(sp4-el): 50.8 ml LVAs ap4: 14.3 cm2 LVLs ap4: 7.0 cm ESV(MOD-sp4): 27.5 ml ESV(sp4-el): 24.8 ml EF(MOD-sp4): 49.2 % EF(sp4-el): 51.1 % SV(sp4-el): 26.0 ml LA A4 area: 27.6 cm2 LA dimension(2D): 4.1 cm RA A4 area: 16.5 cm2 Doppler Measurements & Calculations MV E max mauricio: 44.0 cm/sec Med Peak E' Mauricio: 6.0 cm/sec Ao V2 max: 98.5 cm/sec MV A max mauricio: 89.3 cm/sec E/E' med: 7.4 Ao max P.9 mmHg MV E/A: 0.49 Ao V2 mean: 72.5 cm/sec Ao mean P.4 mmHg Ao V2 VTI: 13.6 cm AV (velocity ratio): 0.83 LV V1 max: 91.1 cm/sec PA V2 max: 99.7 cm/sec TR max mauricio: 240.9 cm/sec LV V1 max P.3 mmHg PA V2 mean: 53.6 cm/sec TR max P.2 mmHg LV V1 mean P.9 mmHg LV V1 mean: 64.5 cm/sec LV V1 VTI: 11.3 cm ECHO/Echo Complete Interpretation Summary Normal LV size. Left ventricular systolic function is normal. The estimated ejection fraction is 60 %. Stage 1 diastolic dysfunction. Pulmonary artery systolic pressure is 26 mmHg. Mitral valve doming/Hockey Sticking Ordering Physician: Livan Garcia Referring Physician: Wilson Brizuela Performed By: Julianne Chan RCS
== END | disposition home or self-care (01) ==
LOC: CVS 12:43
PROVIDERS: PCP Family Medicine; Visit Provider Internal Medicine Cardiovascular Disease
DX: I49.3 Ventricular premature depolarization (principal); I47.1 Supraventricular tachycardia
CPT/HCPCS: 93225; 93226; 93306

== ENCOUNTER → 2022-12-13 | Outpatient (CLI) | payer MEDICARE, SELFPAY ==
--- NOTE | 2022-12-13 12:53 | VDLE_ITS ---
Reason For Study: Pain RIGHT LEFT CFV is compressible, spontaneous, phasic, GSV is normal. competent and demonstrates normal CFV is compressible, spontaneous, phasic, augmentation. competent, and demonstrates normal Procedure augmentation. This is a venous duplex using B-mode, color FV is compressible, spontaneous, phasic, flow and spectral Doppler. competent and demonstrates normal Exam performed in department. augmentation. A preliminary report was called and/or faxed POP V is compressible, spontaneous, phasic, to Dr. Brizuela. competent and demonstrates normal augmentation. T/P Trunk is compressible. PTV is compressible. LT PerV is compressible. VL/Venous Duplex US, Unilateral Interpretation Summary There is no evidence of left lower extremity deep vein thrombosis. Left great s aphenous vein appears patent and compressible segmentally. Normal flow patterns right common femoral vein Ordering Physician: Wilson Brizuela Referring Physician: Wilson Brizuela Performed By: Anitra Corrales RVT
== END | disposition home or self-care (01) ==
LOC: CVS 12:49
PROVIDERS: PCP Family Medicine; Referring Provider Family Medicine; Visit Provider Family Medicine
DX: M79.605 Pain in left leg (principal)
CPT/HCPCS: 93971

== ENCOUNTER → 2023-05-14 | Outpatient (CLI) | payer MEDICARE, SELFPAY ==
--- NOTE | 2023-05-14 11:55 | STRESSREP_ITS ---
Stress Test Report Exercise myocardial perfusion stress test. 78-year-old lady with a history of nonsustained VT Stress protocol: Resting EKG demonstrates normal sinus rhythm with a rate of 62 bpm, and a right bundle branch block pattern with resting blood pressure is 152/78 mmHg. The patient exercised according to the regular Bk protocol for a total duration of 4 minutes and 31 seconds attaining a maximum heart rate of 137 bpm which was 96% of maximum predicted heart rate; the maximum workload was [7.0 ] metabolic equivalents. At rest there were no ST or T wave changes noted to suggest ischemia and at peak exercise upsloping ST changes only were noted which did not meet the criteria for ischemia. Occasional premature ventricular complexes were noted with a short run of SVT with aberrancy noted during recovery and occasional ventricular couplet with no clinical angina was noted the test was terminated due to the target heart rate being achieved/fatigue. The peak blood pressure was 176/86 mmHg. Rate-pressure product was 20,200. Myocardial perfusion protocol. 11.3 mCi of technetium 99m sestamibi was injected at rest. The patient exerci sed according to regular Bk protocol for total duration of 4 minutes and 31 seconds and at peak exercise 33.7 mCi of technetium 99m sestamibi was injected stress images were obtained stress and rest images were reconstructed in comparing the short axis vertical long and horizontal long axis. Gated images were also obtained. Perfusion SPECT analysis: Review of the stress images demonstrate normal uptake of tracer noted in all areas of the myocardium. The resting images similarly demonstrate normal uptake of tracer noted in all areas of the myocardium. No areas of reversibility are noted to suggest ischemia no previous infarct was noted. Gated SPECT analysis: The gated ejection fraction is 70%. Conclusion: Normal exercise myocardial perfusion stress test at a moderate workload Preserved ejection fraction. Premature ventricular complexes noted
== END | disposition home or self-care (01) ==
LOC: CVS 07:14
PROVIDERS: PCP Family Medicine; Visit Provider Nurse Practitioner Family
DX: R94.31 Abnormal electrocardiogram [ECG] [EKG] (principal); I47.29 Other ventricular tachycardia; I34.2 Nonrheumatic mitral (valve) stenosis; I34.0 Nonrheumatic mitral (valve) insufficiency; I47.10 Supraventricular tachycardia, unspecified
CPT/HCPCS: 78452; 93017; A9500; A4216

== ENCOUNTER → 2023-07-18 | Outpatient (CLI) | payer MEDICARE, SELFPAY ==
--- NOTE | 2023-07-18 10:15 | RAD_ITS ---
INDICATION: Radiculopathy EXAMINATION/TECHNIQUE: X-RAY - XR Spine Lumbar Min 4 Views COMPARISON: Prior study dated: 06/01/2015 FINDINGS: VERTEBRAE: Preserved vertebral body height. Grade 1 anterolisthesis of L4 on L5. No fracture. No spondylolisthesis. Preservation of the normal lumbar lordosis. Facet arthropathy throughout the lower lumbar spine. DISCS: Mild disc space narrowing of L4-L5. Small endplate osteophytes throughout. INCLUDED ABDOMEN: Included bowel gas pattern is non-obstructive. RAD/L/S Spine Min 4 Views IMPRESSION: Mild degenerative changes of the lumbar spine. Facet arthropathy is progressed but otherwise similar appearance to prior. Electronically Signed: Byron Box MD at 17:08 EST ,
== END | disposition home or self-care (01) ==
LOC: MTRAD 10:14
PROVIDERS: PCP Family Medicine; Referring Provider Nurse Practitioner Family; Visit Provider Nurse Practitioner Family
DX: M54.16 Radiculopathy, lumbar region (principal)
CPT/HCPCS: 72110

== ENCOUNTER → 2023-08-08 | Outpatient (CLI) | payer MEDICARE, SELFPAY ==
[2023-08-08 12:26] LABS: Absolute Lymphocyte Count 2.45 X10^3/uL (0.83-4.51); Absolute Neutrophil Count 2.8 X10^3/uL (2.0-7.7); Basophil# 0.04 X10^3/uL; Basophil% 0.7 % (0-1); Eosinophil# 0.18 X10^3/uL; Hematocrit 43.3 % (37-47); Lymphocyte # 2.45 X10^3/ul (0.83-4.51); Lymphocyte % 40.9 % (19-41); Mean Corp Hgb Conc 32.3 g/dL (32-36); Mean Corpuscular Hgb 30.6 pg (27.0-32.0); Mean Corpuscular Volume 94.7 fL (81-99); Mean Platelet Vol. 11.1 fl (6.2-12.0); Monocyte# 0.47 X10^3/uL; Monocyte% 7.8 % (0-10); NRBC Flagged by Analyzer 0 % (0-5); Neutrophil # 2.84 X10^3/uL (2.7-7.7); Neutrophil % 47.4 % (47-70); Platelet Count 249 K/mm3 (150-450); Red Blood Count 4.57 M/mm3 (4.2-5.4)
[2023-08-08 12:27] LABS: ALB/GLOB Ratio 1.2 RATIO (0.9-2.4); AST(SGOT) 22 U/L (15-37); Alanine Aminotransfer ALT/SGPT 31 U/L (13-56); Albumin, Serum 3.6 g/dL (3.2-5.0); Alkaline Phosphatase 94 U/L (45-117); Anion Gap 3 (5-15); BUN 17 mg/dL (7-18); BUN/Creat Ratio 21.5 RATIO (10-20); Calcium,Total 9.3 mg/dL (8.5-10.1); Chloride 108 mmol/L (98-107); Cholesterol 200 mg/dL (200); Creatinine, Serum 0.79 mg/dL (0.55-1.02); EST Glomerular Filtration Rate 75 mL/min (>60); Est Glom Filt Rate - Afr Amer 91 mL/min (>60); Glucose 96 mg/dL (74-106); High Density Lipoprotein 71 mg/dL; Potassium 4.3 mmol/L (3.5-5.1); Protein, Total 6.6 g/dL (6.4-8.2); Sodium Level 139 mmol/L (136-145); Triglycerides 151 mg/dL; Very Low Density Lipoprotein 30 mg/dL (5-40)
[2023-08-08 12:48] LABS: Vitamin D,25 Hydroxy 60.3 ng/mL
== END | disposition home or self-care (01) ==
LOC: BFHLAB 09:31
PROVIDERS: PCP Family Medicine; Visit Provider Family Medicine
DX: E78.5 Hyperlipidemia, unspecified (principal); D58.2 Other hemoglobinopathies; E80.6 Other disorders of bilirubin metabolism; E55.9 Vitamin D deficiency, unspecified
CPT/HCPCS: 36415; 80053; 80061; 82306; 85025

== ENCOUNTER → 2023-10-05 | Outpatient (CLI) | payer MEDICARE, SELFPAY ==
--- NOTE | 2023-10-05 11:09 | RAD_ITS ---
HISTORY: LOWER LEG PAIN. TECHNIQUE: XR Hip Unilateral with Pelvis when performed; 2-3 Views. COMPARISON: 06/01/2015. FINDINGS: OSSEOUS STRUCTURES: No acute displaced fracture identified. Note that overlapping bowel shadows may obscure osseous detail. Mineralization unremarkable. JOINT SPACES: No dislocation. Mild degenerative changes of the hips. RAD/HIP, UNI W/ Pelvis 2-3 Views IMPRESSION: No acute displaced fracture or dislocation identified. Electronically Signed: Nishi Orr MD at 10:50 EST ,
--- NOTE | 2023-10-05 11:10 | RAD_ITS ---
STUDY: X-RAY - RIGHT TIBIA AND FIBULA REASON FOR EXAM: Female, 78 years old. Lower leg pain. TECHNIQUE: 2 view(s) of the tibia and fibula were obtained on 3 images. COMPARISON: None. FINDINGS: Osteopenia. Normal visualized tibia. Normal fibula. Superior calcaneal spur. Normal soft tissues. RAD/Tibia & Fibula 2 Views IMPRESSION: Osteopenia with calcaneal spur. No other abnormality identified. Electronically Signed: Valente Miranda MD at 10:13 [facility] ,
== END | disposition home or self-care (01) ==
LOC: MTRAD 11:08
PROVIDERS: PCP Family Medicine; Referring Provider Family Medicine; Visit Provider Family Medicine
DX: M79.604 Pain in right leg (principal); M16.9 Osteoarthritis of hip, unspecified
CPT/HCPCS: 73502; 73590

== ENCOUNTER → 2023-11-16 | Outpatient (CLI) | payer MEDICARE, SELFPAY ==
[2023-11-16 10:14] LABS: Absolute Lymphocyte Count 1.67 X10^3/uL (0.83-4.51); Absolute Neutrophil Count 3.1 X10^3/uL (2.0-7.7); Basophil# 0.04 X10^3/uL; Basophil% 0.8 % (0-1); Eosinophil# 0.16 X10^3/uL; Hematocrit 41.1 % (37-47); Hemoglobin 13.9 g/dL (12.0-15.0); Lymphocyte # 1.67 X10^3/ul (0.83-4.51); Lymphocyte % 31.3 % (19-41); Mean Corp Hgb Conc 33.8 g/dL (32-36); Mean Corpuscular Hgb 31.4 pg (27.0-32.0); Mean Corpuscular Volume 92.8 fL (81-99); Mean Platelet Vol. 10.7 fl (6.2-12.0); Monocyte# 0.37 X10^3/uL; Monocyte% 6.9 % (0-10); NRBC Flagged by Analyzer 0 % (0-5); Neutrophil # 3.08 X10^3/uL (2.7-7.7); Neutrophil % 57.8 % (47-70); Platelet Count 223 K/mm3 (150-450); RBC Distribution Width SD 44.2 fl (35.1-43.9); Red Blood Count 4.43 M/mm3 (4.2-5.4); White Blood Count 5.3 K/mm3 (4.4-11.0)
[2023-11-16 10:46] LABS: BNP,B-Type NATRIURETIC PEPTIDE 215.9 pg/mL (0-100)
[2023-11-16 11:02] LABS: Anion Gap 6 (5-15); BUN 14 mg/dL (7-18); BUN/Creat Ratio 17.1 RATIO (10-20); Calcium,Total 9.2 mg/dL (8.5-10.1); Chloride 111 mmol/L (98-107); Creatinine, Serum 0.82 mg/dL (0.55-1.02); EST Glomerular Filtration Rate 72 mL/min (>60); Est Glom Filt Rate - Afr Amer 87 mL/min (>60); Glucose 100 mg/dL (74-106); Magnesium 2.5 mg/dL (1.6-2.6); Potassium 3.7 mmol/L (3.5-5.1); Sodium Level 140 mmol/L (136-145); Thyroid Stim Hormone (TSH) 2.65 uIU/mL (0.358-3.74)
== END | disposition home or self-care (01) ==
LOC: MTLAB 09:26
PROVIDERS: PCP Family Medicine; Referring Provider Nurse Practitioner Gerontology; Visit Provider Nurse Practitioner Gerontology
DX: R06.02 Shortness of breath (principal); R53.83 Other fatigue; I47.10 Supraventricular tachycardia, unspecified; I49.3 Ventricular premature depolarization
CPT/HCPCS: 36415; 80048; 83735; 83880; 84443; 85025

== ENCOUNTER → 2023-11-20 | Outpatient (CLI) | payer MEDICARE, SELFPAY | END | disposition home or self-care (01) | LOC: PSN 10:01 | PROVIDERS: PCP Family Medicine; Referring Provider Nurse Practitioner Gerontology; Visit Provider Nurse Practitioner Gerontology | DX: I49.3 Ventricular premature depolarization (principal); I47.10 Supraventricular tachycardia, unspecified | CPT/HCPCS: 93225; 93226 ==

== ENCOUNTER 2023-12-18 12:48 | Outpatient (CLI) | payer MEDICARE, SELFPAY ==
--- NOTE | 2023-12-18 12:50 | BI_ITS ---
MAMMOGRAPHY - BILATERAL SCREENING REASON FOR EXAM: Female, 78 years old. Routine annual screening examination. PERTINENT HISTORY: Non-contributory. History of prior left stereotactic breast biopsy. TECHNIQUE: Digital bilateral breast alton (3D mammographic acquisition) in the CC and MLO projections. 2-D mediolateral oblique (MLO) and craniocaudad (CC) views of both breasts were obtained. CAD: Full Field Digital Mammography with Computer Added Detection was performed. COMPARISON: Comparison is made with prior study dated November 22, 2021 and October 21, 2019. FINDINGS: Breast Composition: There are scattered areas of fibroglandular density. There are no dominant masses or suspicious calcifications. A tissue clip marker is seen in the upper lateral aspect of the left breast. Stable small benign-appearing bilateral axillary lymph nodes. No other significant abnormalities are identified. There has been no significant change since the prior study. BI/SCRN MAMM (CAD)W/ALTON BILAT IMPRESSION: Stable bilateral screening mammogram. Yearly follow-up mammogram recommended. (A) ASSESSMENT CATEGORY: BIRADS Category 3: Probably Benign - Short-Interval Follow-up Suggested. A letter regarding these results will be sent to the patient by the facility within 30 days. Approximately 10% of breast cancers are not detected by mammography. A normal mammogram should not delay biopsy of a clinically suspicious abnormality. [id number] Electronically Signed: Rohan Donnelly MD at 14:14 EDT ,
--- NOTE | 2023-12-18 12:53 | BD_ITS ---
STUDY: DUAL ENERGY X-RAY ABSORPTIOMETRY / DXA REASON FOR EXAM: Female, 78 years old. M85.89 TECHNIQUE: Bone Mineral Density (BMD) measurements of lumbar spine and bilateral hips were obtained. COMPARISON: Comparison is made with prior study dated November 22, 2021. FINDINGS: Lumbar Spine (L1-L4): g/cm2 (0.915) / T-score (-0.9) / Z-score (1.6) Findings are suggestive of normal bone density with a low fracture risk. Left Femur Total: g/cm2 (0.837) / T-score (-0.9) / Z-score (1.1) Left Femoral Neck: g/cm2 (0.728) / T-score (-1.1) / Z-score (1.2) Right Femur Total: g/cm2 (0.831) / T-score (-0.9) / Z-score (1.1) Right Femoral Neck: g/cm2 (0.677) / T-score (-1.6) / Z-score (0.7) The T-Scores on the most recent prior examination were: Lumbar Spine (L1-L4): There has been improvement of bone density since the previous examination. Left Femur Total: which represents an improvement of 1.2%. Right Femur Total: which represents an improvement of 1.4%. BD/Dexa Bone Density Study IMPRESSION: The patient is considered osteopenic as outlined below according to World Satya Organization (WHO) criteria with a moderate fracture risk. There has been improvement of bone density since the previous examination. Reference Information: The T-score is the number of standard deviations above or below the standard which is normal for young adults at their peak bone mineral density. The World Health Organization (WHO) interprets the T-scores as follows: Above -1 Normal bone density Between -1 and -2.5 Osteopenia Equal to / or below -2.5 Osteoporosis As a practical clinical guideline, osteopenia may be graded as follows: Mild -1 through -1.5 Moderate -1.6 through -2.0 Severe -2.1 through -2.4 The Z-score is the number of standard deviations above or below age-matched controls. A Z-score of less than -1.5 would be considered abnormal. References: 1. NIH Osteoporosis and Related Bone Diseases www osteo.org 2. International Society for Clinical Densitometry www iscd.org 3. National Osteoporosis Foundation www nof.org Electronically Signed: Rohan Donnelly MD at 13:47 EDT ,
== END 2023-12-18 23:59 | disposition home or self-care (01) ==
LOC: OPBI 12:49
PROVIDERS: PCP Family Medicine; Referring Provider Family Medicine; Visit Provider Family Medicine
DX: Z12.31 Encounter for screening mammogram for malignant neoplasm of breast (principal); M85.851 Other specified disorders of bone density and structure, right thigh; M85.852 Other specified disorders of bone density and structure, left thigh
CPT/HCPCS: 77063; 77067; 77080

== ENCOUNTER → 2024-01-09 | Outpatient (CLI) | payer MEDICARE, SELFPAY ==
--- NOTE | 2024-01-09 09:05 | ECHOD_ITS ---
Reason For Study: Dyspnea/SOB Procedure This was a 2D Doppler, Color Flow transthoracic echocardiogram. Exam performed in department. Left Ventricle Normal LV size. The left ventricular ejection fraction is 45 %. There is mild to moderate global hypokinesis of the left ventricle. Right Ventricle Normal RV size. Normal systolic function. Atria The left atrium is moderately enlarged. Normal right atrium. Mitral Valve Normal mitral valve. Moderate (2+) eccentric mitral valve insufficiency. Tricuspid Valve Normal tricuspid valve. Mild tricuspid valve insufficiency. Pulmonary artery systolic pressure is 24 mmHg. Aortic Valve Trisinus/trileaflet aortic valve. Great Vessels Normal aortic root. Pericardium/Pleural Trivial pericardial effusion. MMode/2D Measurements & Calculations LVIDd: 4.9 cm IVSd: 1.0 cm Ao root diam: 3.6 cm LVIDs: 3.6 cm LVPWd: 0.97 cm LA dimension: 4.4 cm RVDd: 4.1 cm FS: 26.3 % LAV(MOD-bp): 111.3 ml LVAd ap4: 32.4 cm2 SV(MOD-sp4): 46.3 ml LAV(MOD-bp) Indexed: 62.2 ml/m2 LVLd ap4: 8.2 cm LAV(MOD-sp2): 114.4 ml EDV(MOD-sp4): 105.6 ml LAV(MOD-sp4): 96.8 ml EDV(sp4-el): 108.3 ml LVAs ap4: 23.6 cm2 LVLs ap4: 7.7 cm ESV(MOD-sp4): 59.3 ml ESV(sp4-el): 61.3 ml EF(MOD-sp4): 43.8 % EF(sp4-el): 43.4 % SV(sp4-el): 47.0 ml LA A4 area: 30.5 cm2 RA A4 area: 21.5 cm2 TAPSE: 1.0 cm Doppler Measurements & Calculations MV E max wendy: 116.8 cm/sec MV V2 max: 131.9 cm/sec MV P1/2t max wendy: 131.9 cm/sec MV max P.0 mmHg MV P1/2t: 60.8 msec MV V2 mean: 71.9 cm/sec MV dec slope: 634.8 cm/sec2 MV mean P.6 mmHg MV V2 VTI: 24.3 cm MVA(P1/2t): 3.6 cm2 Ao V2 max: 90.4 cm/sec LV V1 max: 76.9 cm/sec MR max wendy: 533.6 cm/sec Ao max P.3 mmHg LV V1 max P.4 mmHg MR max P.9 mmHg Ao V2 mean: 65.3 cm/sec LV V1 mean P.3 mmHg MR mean wendy: 404.0 cm/sec Ao mean P.9 mmHg LV V1 mean: 51.3 cm/sec MR mean P.2 mmHg Ao V2 VTI: 15.5 cm LV V1 VTI: 10.3 cm MR VTI: 178.6 cm AV (velocity ratio): 0.67 PA V2 max: 54.8 cm/sec TR max wendy: 230.4 cm/sec TR max P.2 mmHg ECHO/Echo Complete Interpretation Summary The left ventricular ejection fraction is 45 %. Normal LV size. There is mild to moderate global hypokinesis of the left ventricle. Moderate (2+) eccentric mitral valve insufficiency. Pulmonary artery systolic pressure is 24 mmHg. The left atrium is moderately enlarged. Ordering Physician: Mellisa Garcia Referring Physician: Wilson Brizuela Performed By: Ashish Armstrong RCS
== END | disposition home or self-care (01) ==
PROVIDERS: PCP Family Medicine; Referring Provider Nurse Practitioner Gerontology; Visit Provider Nurse Practitioner Gerontology
DX: R53.83 Other fatigue (principal); R06.00 Dyspnea, unspecified
CPT/HCPCS: 93306

== ENCOUNTER 2024-01-28 10:51 | Day surgery (SDC) | payer MEDICARE, SELFPAY ==
--- NOTE | 2024-01-22 14:21 | HP.PCM_ITS ---
History and Physical Date of Admission: 01/28/24 SUSAN BURRELL, is a 78 F who presents to the office today for a cardioversion. She has a history of previous premature atrial complexes, ventricular complexes as well as mild valvular heart disease. She had a Holter monitor in October 2016 which demonstrated 10% of ventricular ectopy. No atrial fibrillation was noted. Her Holter monitor from 11/20/23 demonstrated atrial fibrillation with frequent PVCs including wide-complex ventricular runs. Ventricular ectopy at 19.6%, supraventricular ectopy 0.0%, and atrial fibrillation 80.4%. Her metoprolol was increased to 50 mg twice daily, and she was started on Eliquis at that time. From a cardiac standpoint, the patient is doing well. She does acknowledge occasional episodes of palpitations. She denies chest pain, pressure or heaviness. She does acknowledge periods of SOB-she believes this may be related to atrial fibrillation. She denies Orthopnea, and PND. She does not have bleeding issues; no blood in urine, stool or nosebleeds. She does acknowledge intermittent fatigue. She denies myalgias, or claudication. She does not have e betsy, or sudden weight gain. She denies dizziness, lightheadedness, syncopal or near syncopal episodes, and headaches. Intake Vital Signs See EMR Allergies See EMR Medications See EMR [facility] Medical History HLD (hyperlipidemia) Irritant contact dermatitis due to plant Nonrheumatic mitral valve stenosis with insufficiency Premature ventricular contractions SVT (supraventricular tachycardia) Surgical History History of bladder suspension procedure Hx of shoulder surgery S/P trigger finger release Social History Smoking Status: Never smoker alcohol intake: never substance use type: does not use caffeine: Yes Type: coffee Number of servings: 1 ROS Const Const: Positive for fatigue (intermittent); Negative for weakness, fever(s), headache(s), chills, frequent falls, weight gain or weight loss Eyes Eyes: Negative for blind spots, loss of peripheral vision, transient loss of v ision, blurry vision, change in vision, double vision, floaters or tunnel vision ENT ENT: Negative for headache(s), dizziness, Nosebleed/epistaxis, balance problems or neck pain Cardio Chest Pain: No Palpitations: Yes (occasional) Edema: None Muscle aches with walking: None Resp Respiratory: Positive for SOB with activity (occasional); Negative for SOB at rest or SOB orthopnea\SOB lying down GI GI: Negative nausea, vomiting, heartburn, bloating, vomiting blood/hematemesis, bright, red blood in stools or black,tarry stools Musc Musc: Negative for muscle aches/ myalgia, muscle weakness, joint pain or balance problems Neuro Neuro: Negative for dizziness, lightheadedness, near syncope, syncope, orthostatic symptoms, frequent falls, headache(s), weakness, blurry vision or double vision [employer] Hematologic/Lymphatic: Negative for easy bleeding or easy bruising Endo Endo: Positive for fatigue (intermittent) Cardiology Exam Const Appearance: cooperative, healthy appearing, comfortable and no acute distress Nutritional Appearance: average body habitus and well nourished Orientation: alert, awake and oriented x3 Head Head: normal to inspection Ears: hearing grossly normal bilaterally Nose: external nose normal Face and Sinus: face symmetric Eyes General: appearance normal, both eyes and all related structures Eyelids: eyelids normal EOM: EOM intact bilaterally Neck Neck: normal visual inspection and no JVD Carotids: normal carotid upstroke Chest Chest inspection: normal inspection of the chest, symmetric chest movement and normal respiratory effort; Negative cough Auscultation: Bilateral: Clear to Auscultation Cardio Rhythm: irregular rhythm Heart sounds: S1 normal and S2 normal; Negative rub, gallop or murmur GI GI: normal to inspection Neuro General: patient alert, patient awake, patient oriented x3 and CN's II-XI intact bilaterally Skin Skin: no rashes or lesions noted Extremities Pulses: Normal: Right Posterior Tibial Pulse, Left Posterior Tibial Pulse, Right Radial Pulse and Left Radial Pulse Lower Extremity Edema: None: Bilateral Psych Psychological: normal affect Supplemental Info Supplemental Information Echocardiogram 01/09/2024: Interpretation Summary The left ventricular ejection fraction is 45 %. Normal LV size. There is mild to moderate global hypokinesis of the left ventricle. Moderate (2+) eccentric mitral valve insufficiency. Pulmonary artery systolic pressure is 24 mmHg. The left atrium is moderately enlarged. Echocardiogram from 10/09/2022: Interpretation Summary Normal LV size. Left ventricular systolic function is normal. The estimated ejection fraction is 60 %. Stage 1 diastolic dysfunction. Pulmonary artery systolic pressure is 26 mmHg. Mitral valve doming/Hockey Sticking Transthoracic Echocardiogram from 12/13/2016: Interpretation Summary Normal LV size. Left ventricular systolic function is normal. The estimate ejection fraction is 60%. Mitral valve doming/hockey sticking Mild (1+) eccentric mitral valve insufficiency. Mild (1+) tricuspid valve insufficiency. Stress Test from 05/14/2023: Conclusion: Normal exercise myocardial perfusion stress test at a moderate workload Preserved ejection fraction. Premature ventricular complexes noted Holter monitor from 10/09/2022: Sinus rhythm, sinus bradycardia, sinus tachycardia Minimum heart rate 44 bpm. Average heart rate 77 bpm. Maximal heart 188 bpm. Ventricular ectopy 2.7%. Supraventricular ectopy 1.2%. Longest R to R interval 1.8 seconds. No atrial fibrillation noted. 14 ventricular runs noted. The patient kept a diary with no symptoms noted. Assessment and Plan Assessment and Plan (1) Atrial fibrillation: Status: Acute Plan: Patient has a history of atrial fibrillation. Her most recent echocardiogram from 01/09/2024 demonstrated ejection fraction of 45%, moderately enlarged left atrium, and normal right atrium. Cardioversion instructions were reviewed with the patient, and she verbalizes understanding. She will continue Eliquis 5 mg twice daily, Toprol tartrate 50 mg twice daily. Will proceed with cardioversion.
--- NOTE | 2024-01-28 09:59 | EKG12_ITS ---
Test Reason : AFIB Blood Pressure : / mmHG Vent. Rate : 096 BPM Atrial Rate : 340 BPM P-R Int : 000 ms QRS Dur : 144 ms QT Int : 368 ms P-R-T Axes : 000 084 000 degrees QTc Int : 464 ms Atrial fibrillation with premature ventricular or aberrantly conducted complexes Right bundle branch block Abnormal ECG When compared with ECG of 08-JAN-2018 12:42, Atrial fibrillation has replaced Sinus rhythm Right bundle branch block has replaced Incomplete right bundle branch block Criteria for Inferior infarct are no longer Present Confirmed by RON ROMERO, LIVAN ([id number]), web content editor ROB CARUSO ([id number]) on 01/30/2024 10:04:40 AM Referred By: Livan Garcia Confirmed By:LIVAN GARCIA MD
--- NOTE | 2024-01-28 11:12 | RAD_ITS ---
INDICATION: Afib EXAMINATION/TECHNIQUE: X-RAY - XR Chest 2 Views COMPARISON: 11/07/2005 FINDINGS: LIFE-SUPPORT AND LINES: 1. None HEART AND VESSELS: Cardiac silhouette is large. No evidence congestive failure. LUNGS AND PLEURAL SPACES: A severe atelectasis greater on the RIGHT than LEFT. No airspace consolidation. No pulmonary mass is noted. MEDIASTINUM AND HILAR REGIONS: No masses adenopathy noted. No areas of calcification. Visualized upper airway is normal in position. BONY ELEMENTS: No acute bony changes noted. RAD/Chest PA and Lateral IMPRESSION: 1. Cardiomegaly without evidence of acute congestive failure. 2. Mild basilar atelectasis, no focal infiltrate. Electronically Signed: Duc Hoffmann MD at 0:47 EDT ,
[2024-01-28 11:21] VITALS: BMI 23.6
[2024-01-28 11:30] LABS: Anion Gap 6 (5-15); BUN 22 mg/dL (7-18); BUN/Creat Ratio 26.7 RATIO (10-20); Chloride 110 mmol/L (98-107); Creatinine, Serum 0.82 mg/dL (0.55-1.02); EST Glomerular Filtration Rate 71 mL/min (>60); Est Glom Filt Rate - Afr Amer 86 mL/min (>60); Estimated Creatinine Clearance 54.99 ml/min; Glucose 110 mg/dL (74-106); Potassium 4.5 mmol/L (3.5-5.1); Sodium Level 139 mmol/L (136-145)
--- NOTE | 2024-01-28 12:54 | PRO.PCM_ITS ---
Procedure Report Date of Procedure: 01/28/24 DC cardioversion. 78-year-old lady with a history of chronic persistent atrial fibrillation s ymptomatic with mild A-fib induced cardiomyopathy. Patient was brought to cardiac catheterization lab in the postabsorptive nonsedated state. Informed consent was obtained. The patient was seen by Dr. Browning of the critical care division. Anterior-posterior pads were applied. The patient was administered 40 mg intravenous propofol. 200 J of synchronized biphasic DC cardioversion energy were applied with prompt reversal to sinus rhythm. Patient tolerated the procedure well. Conclusion: Successful DC cardioversion from atrial fibrillation to sinus rhythm. Follow-up as per office protocol.
--- NOTE | 2024-01-28 12:59 | PCM.OP.PRO ---
Procedure Report Date of Procedure: 01/28/24 CONSCIOUS SEDATION REPORT DATE OF SERVICE: January 28, 2024 BRIEF HISTORY OF PRESENT ILLNESS: The patient is a 78-year-old female who presented to [facility] for an elective outpatient cardioversion due to underlying atrial fibrillation. The patient denied any prior anesthetic complications. Her last surface echocardiogram demonstrated an ejection fraction of approximately 45%. The patient has never been diagnosed with COPD, asthma or obstructive sleep apnea. She is systemically anticoagulated on Eliquis. PHYSICAL EXAMINATION: VITAL SIGNS: Reviewed and were acceptable. GENERAL: The patient is a female, in no apparent distress, speaking in full sentences. HEENT: Normocephalic, atraumatic. Mucous membranes are moist and pink. Good mouth opening noted. Trachea is midline. Good neck mobility. CHEST: S1, S2 irregularly irregular. No murmurs, rubs or gallops were noted. LUNGS: Clear to auscultation bilaterally without appreciable wheezes, rales or rhonchi. ABDOMEN: Soft, nontender, nondistended. Positive bowel sounds. EXTREMITIES: There is no clubbing, cyanosis or edema. ASA Class: II DESCRIPTION OF PROCEDURE: After confirmation of informed consent, the patient's anesthesia plan was reviewed in detail. Propofol was chosen. Risks and benefits were reviewed and the patient agreed to proceed. At 1229, the patient was given 40 mg of propofol. The patient achieved an appropriate level of sedation and was given a 200 joule synchronized cardioversion by Dr. Garcia at the bedside. This was successful in achieving normal sinus rhythm. The patient was monitored until 1242, at which time she reached her baseline mental status and function. The patient tolerated the procedure well. COMPLICATIONS: None ESTIMATED BLOOD LOSS: None RECOMMENDATIONS: Okay to recover in usual fashion. Procedures Pulmonary Pulmonary Procedures /Diagnostic Testin Con Sedation
== END 2024-01-28 14:03 | disposition home or self-care (01) ==
PROVIDERS: Nurse Practitioner Gerontology; PCP Family Medicine; Referring Provider Internal Medicine Cardiovascular Disease; Visit Provider Internal Medicine Cardiovascular Disease
DX: I48.19 Other persistent atrial fibrillation (principal); I42.9 Cardiomyopathy, unspecified; E78.5 Hyperlipidemia, unspecified; Z79.01 Long term (current) use of anticoagulants
CPT/HCPCS: 36415; 71046; 80048; 92960; 93005; J7040

== ENCOUNTER 2024-03-24 10:37 | Day surgery (SDC) | payer MEDICARE, SELFPAY ==
[2024-03-13 18:02] LABS: Anion Gap 8 (5-15); BUN 18 mg/dL (7-18); BUN/Creat Ratio 18.3 RATIO (10-20); Calcium,Total 8.9 mg/dL (8.5-10.1); Chloride 108 mmol/L (98-107); Creatinine, Serum 0.99 mg/dL (0.55-1.02); EST Glomerular Filtration Rate 58 mL/min (>60); Est Glom Filt Rate - Afr Amer 70 mL/min (>60); Glucose 120 mg/dL (74-106); Potassium 3.8 mmol/L (3.5-5.1); Sodium Level 139 mmol/L (136-145)
[2024-03-21 08:42] VITALS: BMI 23.8
--- NOTE | 2024-03-24 12:13 | PCM.OP.PRO ---
Procedure Report Date of Procedure: 03/24/24 DC cardioversion. 78-year-old lady with a history of atrial fibrillation which is persistent and symptomatic. Patient has been on therapeutic anticoagulation. Patient was brought to cardiac catheterization lab in the postabsorptive nonsedated state. Informed consent was obtained. The patient was seen by Dr. Browning of the critical care division. Anterior-posterior pads were applied. Patient was then administered 40 mg of intravenous propofol. 200 J of DC synchronized cardioversion energy were applied with prompt reversal to sinus rhythm. Plan: Continue current medication. Follow-up as per office protocol.
--- NOTE | 2024-03-24 13:00 | PCM.OP.PRO ---
Procedure Report Date of Procedure: 03/24/24 CONSCIOUS SEDATION REPORT DATE OF SERVICE: March 24, 2024 BRIEF HISTORY OF PRESENT ILLNESS: The patient is a 78-year-old female who presented to [facility] for an elective outpatient cardioversion due to underlying atrial fibrillation. The patient denied any prior anesthetic complications. Her last surface echocardiogram demonstrated an ejection fraction of approximately 45%. The patient has never been diagnosed with COPD, asthma or obstructive sleep apnea. She is systemically anticoagulated on Eliquis. The patient did undergo a prior cardioversion in January 2024, for which she required 40 mg of propofol to achieve an appropriate level of sedation. PHYSICAL EXAMINATION: VITAL SIGNS: Reviewed and were acceptable. GENERAL: The patient is a female, in no apparent distress, speaking in full sentences. HEENT: Normocephalic, atraumatic. Mucous membranes are moist and pink. Good mouth opening noted. Trachea is midline. Good neck mobility. CHEST: S1, S2 irregularly irregular. No murmurs, rubs or gallops were noted. LUNGS: Clear to auscultation bilaterally without appreciable wheezes, rales or rhonchi. ABDOMEN: Soft, nontender, nondistended. Positive bowel sounds. EXTREMITIES: There is no clubbing, cyanosis or edema. ASA Class: II DESCRIPTION OF PROCEDURE: After confirmation of informed consent, the patient's anesthesia plan was reviewed in detail. Propofol was chosen. Risks and benefits were reviewed and the patient agreed to proceed. At 1208, the patient was given 40 mg of propofol. The patient achieved an appropriate level of sedation and was given a 200 joule synchronized cardioversion by Dr. Garcia at the bedside. This was successful in achieving normal sinus rhythm. The patient was monitored until 1223, at which time she reached her baseline mental status and function. The patient tolerated the procedure well. COMPLICATIONS: None ESTIMATED BLOOD LOSS: None RECOMMENDATIONS: Okay to recover in usual fashion. Procedures Pulmonary Pulmonary Procedures /Diagnostic Testin Con Sedation
== END 2024-03-24 13:15 | disposition home or self-care (01) ==
PROVIDERS: Nurse Practitioner Gerontology; PCP Family Medicine; Referring Provider Internal Medicine Cardiovascular Disease; Visit Provider Internal Medicine Cardiovascular Disease
DX: I48.19 Other persistent atrial fibrillation (principal); I47.29 Other ventricular tachycardia; R07.89 Other chest pain; R06.02 Shortness of breath; Z79.899 Other long term (current) drug therapy; Z79.01 Long term (current) use of anticoagulants; E78.5 Hyperlipidemia, unspecified; I47.10 Supraventricular tachycardia, unspecified; I05.2 Rheumatic mitral stenosis with insufficiency
CPT/HCPCS: 36415; 80048; 92960; 93005; J7040

== ENCOUNTER → 2024-03-28 | Outpatient (CLI) | payer MEDICARE, SELFPAY | END | disposition home or self-care (01) | LOC: PSN 09:22 | PROVIDERS: PCP Family Medicine; Referring Provider Nurse Practitioner Gerontology; Visit Provider Nurse Practitioner Gerontology | DX: Z79.899 Other long term (current) drug therapy (principal) | CPT/HCPCS: 94060; 94726; 94729 ==

== ENCOUNTER → 2024-04-25 | Outpatient (CLI) | payer MEDICARE, SELFPAY | END | disposition home or self-care (01) | LOC: PSN 08:56 | PROVIDERS: PCP Family Medicine; Referring Provider Nurse Practitioner Gerontology; Visit Provider Nurse Practitioner Gerontology | DX: I48.91 Unspecified atrial fibrillation (principal); I47.29 Other ventricular tachycardia; R00.1 Bradycardia, unspecified; Z79.899 Other long term (current) drug therapy | CPT/HCPCS: 93225; 93226 ==

== ENCOUNTER → 2024-05-20 | Outpatient (CLI) | payer MEDICARE, SELFPAY | END | disposition home or self-care (01) | LOC: PSN 11:45 | PROVIDERS: PCP Family Medicine; Referring Provider Nurse Practitioner Gerontology; Visit Provider Nurse Practitioner Gerontology | DX: R00.1 Bradycardia, unspecified (principal) | CPT/HCPCS: 93225; 93226 ==

== ENCOUNTER → 2024-05-23 | Outpatient (CLI) | payer MEDICARE, SELFPAY ==
--- NOTE | 2024-05-23 15:24 | RAD_ITS ---
EXAM: XR LUMBOSACRAL SPINE, 4 OR 5 VIEWS CLINICAL INDICATION: FALL, WORSENING PAIN TECHNIQUE: Frontal, lateral and bilateral oblique views of the lumbar spine. COMPARISON: July 18, 2023. FINDINGS: VERTEBRAE: Mild decreased height of anterior-mid T12 body is stable. No visible acute fracture. Similar hypertrophic changes of the facet joints at L3-S1. No spondylolisthesis. Preservation of the normal lumbar lordosis. DISC SPACES: Similar moderate disc space narrowing at L5-S1. GASTROINTESTINAL TRACT: Unremarkable as visualized. Included bowel gas pattern is non-obstructive. OTHER FINDINGS: Mild right pleural effusion or thickening with blunting of the lateral costophrenic angle, this region was not included on prior exam. RAD/L/S Spine Min 4 Views IMPRESSION: 1. Similar lower thoracic-lumbar spine findings. 2. Right pleural effusion or thickening at the lateral lung base. I have requested prior chest radiograph for comparison. ADDENDUM pending if it is received. Pending Final Proof Editing
== END | disposition home or self-care (01) ==
LOC: MTRAD 15:22
PROVIDERS: PCP Family Medicine; Referring Provider Family Medicine; Visit Provider Family Medicine
DX: M54.50 Low back pain, unspecified (principal)
CPT/HCPCS: 72110

== ENCOUNTER → 2024-05-26 | Outpatient (CLI) | payer MEDICARE, SELFPAY ==
--- NOTE | 2024-05-26 10:52 | RAD_ITS ---
INDICATION: ABN APPEARANCE OF RIGHT LUNG BASE EXAMINATION/TECHNIQUE: X-RAY - XR Chest 2 Views COMPARISON: May 23, 2024 FINDINGS: LINES/DEVICES: None. LUNGS: There is stable blunting of the right costophrenic angle. No pneumothorax. MEDIASTINUM AND CARDIOVASCULAR STRUCTURES: Cardiac silhouette not enlarged. Central airways and mediastinal contour are unremarkable. BONES AND SOFT TISSUES: There are right posterior seventh and eighth rib fractures. RAD/Chest PA and Lateral IMPRESSION: Stable right pleural effusion and/or pleural thickening. Acute right seventh and eighth rib fractures. Electronically Signed: Rosalina Rodriguez MD at 14:44 EDT ,
== END | disposition home or self-care (01) ==
LOC: MTRAD 10:39
PROVIDERS: PCP Family Medicine; Referring Provider Family Medicine; Visit Provider Family Medicine
DX: R93.89 Abnormal findings on diagnostic imaging of other specified body structures (principal)
CPT/HCPCS: 71046

== ENCOUNTER → 2024-08-05 | Outpatient (CLI) | payer MEDICARE, SELFPAY ==
--- NOTE | 2024-08-05 12:48 | RAD_ITS ---
HISTORY: cough. TECHNIQUE: XR Chest 2 Views. COMPARISON: 05/26/2024. FINDINGS: CARDIOMEDIASTINAL BORDERS: Cardiac silhouette within normal limits in size. Mediastinal contour also unchanged with calcification of the aortic knob. LUNGS: Mild left greater than right bibasilar opacities. PLEURA: No pleural effusion or pneumothorax seen. Chronic hyperinflation. OSSEOUS STRUCTURES: Interval healing of right sixth, seventh, and eighth rib fractures with callus formation. Unchanged height of lower thoracic compression fracture RAD/Chest PA and Lateral IMPRESSION: Mild bibasilar atelectasis or pneumonia. Electronically Signed: Nishi Orr MD at 13:47 EST ,
== END | disposition home or self-care (01) ==
LOC: MTRAD 12:36
PROVIDERS: PCP Family Medicine; Referring Provider Physician Assistant Surgical; Visit Provider Physician Assistant Surgical
DX: J20.9 Acute bronchitis, unspecified (principal)
CPT/HCPCS: 71046

== ENCOUNTER → 2024-08-15 | Outpatient (CLI) | payer MEDICARE, SELFPAY ==
[2024-08-15 12:52] LABS: Absolute Lymphocyte Count 1.97 X10^3/uL (0.83-4.51); Absolute Neutrophil Count 6.6 X10^3/uL (2.0-7.7); Basophil# 0.08 X10^3/uL; Basophil% 0.8 % (0-1); Eosinophil# 0.37 X10^3/uL; Eosinophils% 3.6 % (0-5); Hematocrit 45.7 % (37-47); Lymphocyte # 1.97 X10^3/ul (0.83-4.51); Lymphocyte % 19.4 % (19-41); Mean Corp Hgb Conc 32.8 g/dL (32-36); Mean Corpuscular Hgb 32.1 pg (27.0-32.0); Mean Corpuscular Volume 97.9 fL (81-99); Monocyte# 1.14 X10^3/uL; Monocyte% 11.2 % (0-10); NRBC Flagged by Analyzer 0 % (0-5); Neutrophil # 6.57 X10^3/uL (2.7-7.7); Neutrophil % 64.5 % (47-70); Platelet Count 340 K/mm3 (150-450); RBC Distribution Width SD 46.8 fl (35.1-43.9); Red Blood Count 4.67 M/mm3 (4.2-5.4); White Blood Count 10.2 K/mm3 (4.4-11.0)
[2024-08-15 13:14] LABS: ALB/GLOB Ratio 0.8 RATIO (0.9-2.4); AST(SGOT) 31 U/L (15-37); Alanine Aminotransfer ALT/SGPT 43 U/L (13-56); Alkaline Phosphatase 214 U/L (45-117); Anion Gap 6 (5-15); BUN 17 mg/dL (7-18); BUN/Creat Ratio 21.2 RATIO (10-20); Calcium,Total 8.8 mg/dL (8.5-10.1); Chloride 101 mmol/L (98-107); Cholesterol 185 mg/dL (200); EST Glomerular Filtration Rate 73 mL/min (>60); Est Glom Filt Rate - Afr Amer 89 mL/min (>60); Globulin 3.6 g/dL (2.2-4.2); Glucose 81 mg/dL (74-106); High Density Lipoprotein 68 mg/dL; Potassium 4.2 mmol/L (3.5-5.1); Protein, Total 6.6 g/dL (6.4-8.2); Sodium Level 134 mmol/L (136-145); Triglycerides 132 mg/dL; Very Low Density Lipoprotein 26 mg/dL (5-40)
[2024-08-15 13:22] LABS: Vitamin D,25 Hydroxy 40.7 ng/mL
== END | disposition home or self-care (01) ==
LOC: MTLAB 09:44
PROVIDERS: PCP Family Medicine; Referring Provider Family Medicine; Visit Provider Family Medicine
DX: E78.5 Hyperlipidemia, unspecified (principal); E80.6 Other disorders of bilirubin metabolism; E55.9 Vitamin D deficiency, unspecified; R63.4 Abnormal weight loss; Z51.81 Encounter for therapeutic drug level monitoring
CPT/HCPCS: 36415; 80053; 80061; 82306; 84443; 85025

== ENCOUNTER → 2024-09-12 | Outpatient (CLI) | payer MEDICARE, SELFPAY ==
[2024-09-12 18:39] LABS: ALB/GLOB Ratio 0.8 RATIO (0.9-2.4); AST(SGOT) 31 U/L (15-37); Alanine Aminotransfer ALT/SGPT 31 U/L (13-56); Albumin, Serum 2.8 g/dL (3.2-5.0); Alkaline Phosphatase 243 U/L (45-117); Anion Gap 6 (5-15); BUN 12 mg/dL (7-18); BUN/Creat Ratio 16.3 RATIO (10-20); Calcium,Total 8.8 mg/dL (8.5-10.1); Chloride 106 mmol/L (98-107); Creatinine, Serum 0.74 mg/dL (0.55-1.02); EST Glomerular Filtration Rate 81 mL/min (>60); Est Glom Filt Rate - Afr Amer 98 mL/min (>60); Globulin 3.4 g/dL (2.2-4.2); Glucose 114 mg/dL (74-106); Potassium 4.1 mmol/L (3.5-5.1); Protein, Total 6.2 g/dL (6.4-8.2); Sodium Level 136 mmol/L (136-145)
== END | disposition home or self-care (01) ==
LOC: BFHLAB 16:07
PROVIDERS: PCP Family Medicine; Visit Provider Family Medicine
DX: R74.8 Abnormal levels of other serum enzymes (principal); E87.1 Hypo-osmolality and hyponatremia
CPT/HCPCS: 36415; 80053

== ENCOUNTER → 2024-09-15 | Outpatient (CLI) | payer MEDICARE, SELFPAY ==
[2024-09-15 16:00] LABS: PTHIN 24.8 pg/mL (18.4-80.1)
[2024-09-15 16:13] LABS: Alkaline Phosphatase 253 U/L (45-117)
== END | disposition home or self-care (01) ==
LOC: MTLAB 13:35
PROVIDERS: PCP Family Medicine; Referring Provider Family Medicine; Visit Provider Family Medicine
DX: R74.8 Abnormal levels of other serum enzymes (principal)
CPT/HCPCS: 36415; 83970; 84075; 84443

== ENCOUNTER → 2024-09-17 | Outpatient (CLI) | payer MEDICARE, SELFPAY ==
--- NOTE | 2024-09-17 11:03 | ECHOL_ITS ---
Reason For Study: Evaluate EF Procedure This was a limited 2D transthoracic echocardiogram. Myocardial strain analysis was performed in this exam to aid in the assessment of cardiac function. Best parasternal images taken with patient supine. Exam performed in department. Left Ventricle Normal LV size. Left ventricular systolic function is normal. The left ventricular ejection fraction is 55 %. No regional wall motion abnormalities noted. Right Ventricle Normal RV size. Normal systolic function. Atria Normal left atrium. Normal right atrium. Mitral Valve Bileaflet diffuse mitral valve thickening. Mild (1+) eccentric mitral valve insufficiency. Tricuspid Valve Normal tricuspid valve. Trivial tricuspid valve insufficiency. Aortic Valve Trisinus/trileaflet aortic valve. Pulmonic Valve Normal pulmonic valve. Great Vessels Normal aortic root. The pulmonary artery is normal size. Inferior vena cava collapse with respiration. Pericardium/Pleural No pericardial effusion. MMode/2D Measurements & Calculations LVIDd: 4.7 cm IVSd: 0.93 cm LAV(MOD-bp): 63.9 ml LVIDs: 2.9 cm LVPWd: 0.89 cm LAV(MOD-bp) Indexed: 35.9 ml/m2 FS: 38.9 % LAV(MOD-sp2): 72.8 ml LAV(MOD-sp4): 50.1 ml _ SV(MOD-sp4): 38.1 ml LVAd ap4: 25.7 cm2 LVAd ap2: 26.5 cm2 LVLd ap4: 7.5 cm LVLd ap2: 7.7 cm SI(MOD-sp4): 21.4 ml/m2 EDV(MOD-sp4): 71.6 ml EDV(MOD-sp2): 79.8 ml EDV(sp4-el): 74.7 ml EDV(sp2-el): 77.3 ml LVAs ap4: 16.4 cm2 LVAs ap2: 18.6 cm2 LVLs ap4: 6.5 cm LVLs ap2: 6.9 cm ESV(MOD-sp4): 33.5 ml ESV(MOD-sp2): 44.0 ml ESV(sp4-el): 35.2 ml ESV(sp2-el): 42.6 ml EF(MOD-sp4): 53.2 % EF(MOD-sp2): 44.8 % EF(sp4-el): 52.9 % _ SV(MOD-sp2): 35.8 ml SV(sp4-el): 39.5 ml LA A4 area: 20.7 cm2 SI(MOD-sp2): 20.1 ml/m2 _ RA A4 area: 14.8 cm2 Doppler Measurements & Calculations MR max wendy: 553.2 cm/sec MR max P.4 mmHg ECHO/Echo, Limited Study Interpretation Summary Normal LV size. Left ventricular systolic function is normal. The left ventricular ejection fraction is 55 %. Mild (1+) eccentric mitral valve insufficiency. The global longitudinal strain is moderately abnormal. The global longitudinal strain = -12.8% (abnormal). Ordering Physician: Franc Cutler Referring Physician: Franc Cutler Performed By: Ashish Armstrong RCS
== END | disposition home or self-care (01) ==
LOC: CVS 10:59
PROVIDERS: PCP Family Medicine; Referring Provider Nurse Practitioner Family; Visit Provider Nurse Practitioner Family
DX: R06.00 Dyspnea, unspecified (principal); I48.91 Unspecified atrial fibrillation; I47.29 Other ventricular tachycardia; R94.31 Abnormal electrocardiogram [ECG] [EKG]; I34.0 Nonrheumatic mitral (valve) insufficiency; E78.5 Hyperlipidemia, unspecified; Z79.899 Other long term (current) drug therapy
CPT/HCPCS: 93308

== ENCOUNTER → 2024-09-23 | Outpatient (CLI) | payer MEDICARE, SELFPAY ==
[2024-09-23 17:57] LABS: Absolute Lymphocyte Count 2.14 X10^3/uL (0.83-4.51); Absolute Neutrophil Count 4.8 X10^3/uL (2.0-7.7); Basophil# 0.07 X10^3/uL; Basophil% 0.9 % (0-1); Eosinophil# 0.09 X10^3/uL; Eosinophils% 1.2 % (0-5); Hematocrit 43.2 % (37-47); Hemoglobin 14.3 g/dL (12.0-15.0); Lymphocyte # 2.14 X10^3/ul (0.83-4.51); Lymphocyte % 27.5 % (19-41); Mean Corp Hgb Conc 33.1 g/dL (32-36); Mean Corpuscular Hgb 32.1 pg (27.0-32.0); Mean Corpuscular Volume 97.1 fL (81-99); Mean Platelet Vol. 9.8 fl (6.2-12.0); NRBC Flagged by Analyzer 0 % (0-5); Neutrophil # 4.75 X10^3/uL (2.7-7.7); Platelet Count 334 K/mm3 (150-450); RBC Distribution Width SD 46.7 fl (35.1-43.9); Red Blood Count 4.45 M/mm3 (4.2-5.4); White Blood Count 7.8 K/mm3 (4.4-11.0)
[2024-09-23 18:31] LABS: Color, Urine Yellow (Yellow); Glucose, Dipstick Normal (Normal); Ketone-Dipstick Negative (Negative); Leukocyte Esterase-Dipstick 500 /ul (Negative); Nitrite-Dipstick Negative (Negative); Occult Blood-Urine 10 /ul (Negative); Protein-Dipstick 15 mg/dl (Negative); Specific Gravity, Urine 1.015 (1.002-1.030); Urine Bilirubin Dipstick Negative (Negative); Urine Clarity Sl. Cloudy (Clear); Urine Urobilinogen Normal (Normal); Urine pH 6.5 (5.0 - 8.0)
[2024-09-23 18:47] LABS: ALB/GLOB Ratio 0.8 RATIO (0.9-2.4); AST(SGOT) 30 U/L (15-37); Alanine Aminotransfer ALT/SGPT 21 U/L (13-56); Albumin, Serum 2.9 g/dL (3.2-5.0); Alkaline Phosphatase 155 U/L (45-117); Anion Gap 6 (5-15); BUN 17 mg/dL (7-18); BUN/Creat Ratio 21.2 RATIO (10-20); Chloride 106 mmol/L (98-107); EST Glomerular Filtration Rate 73 mL/min (>60); Est Glom Filt Rate - Afr Amer 89 mL/min (>60); Globulin 3.7 g/dL (2.2-4.2); Glucose 119 mg/dL (74-106); LDH 409 U/L (84-246); Potassium 4.2 mmol/L (3.5-5.1); Protein, Total 6.6 g/dL (6.4-8.2); Sodium Level 138 mmol/L (136-145)
[2024-09-26 16:09] LABS: Alkaline Phosphatase, Serum 162 IU/L (44-121); Bone Fraction 25 % (14-68); Intestinal Fraction 3 % (0-18); Liver Fraction 72 % (18-85); PROEL- Alpha-1 Globulin 0.3 g/dL (0.0-0.4); PROEL- Alpha-2 Globulin 0.8 g/dL (0.4-1.0); PROEL- Beta Globulin 1.1 g/dL (0.7-1.3); PROEL- Gamma Globulin 0.7 g/dL (0.4-1.8); PROEL-M-Spike Not Observed g/dL (Not Observed); PROELU- Albumin, Urine 27.4 % (.); PROELU- Alpha-1-Globulin,Ur 3.3 % (.); PROELU- Alpha-2-Globulin,Ur 13.3 % (.); PROELU- Beta Globulin, Ur 34.7 % (.); PROELU- Gamma Globulin, Ur 21.4 % (.); Total Protein, Ur 12.1 mg/dL (Not Estab.)
== END | disposition home or self-care (01) ==
LOC: MTLAB 15:27
PROVIDERS: PCP Family Medicine; Referring Provider Family Medicine; Visit Provider Family Medicine
DX: R53.83 Other fatigue (principal); R05.9 Cough, unspecified; R74.8 Abnormal levels of other serum enzymes; E88.09 Other disorders of plasma-protein metabolism, not elsewhere classified
CPT/HCPCS: 36415; 80053; 81002; 83615; 84075; 84080; 84165; 84166; 85025

== ENCOUNTER → 2024-10-21 | Outpatient (CLI) | payer MEDICARE, SELFPAY ==
--- NOTE | 2024-10-21 13:54 | CT_ITS ---
PROCEDURE: CHEST WITH CONTRAST REASON FOR EXAM: COUGH, FATIGUE, WEIGHT LOSS, ELEVATE LDH TECHNIQUE: Chest CT with intravenous contrast and 3D reconstructions. Abdomen and pelvis CT using the same contrast dose. CONTRAST: 99 cc of Isovue-300. COMPARISON: Comparison is made with prior chest radiograph dated August 05, 2024. FINDINGS: CHEST: Lines and tubes: None. Mediastinum: No evidence of mediastinal hemorrhage. Heart: Normal heart size. No pericardial effusion. Thoracic Aorta: No evidence of acute traumatic aortic injury. Lungs and Airways: Hyperinflation. Minimal degree of increased markings at the lung bases suggestive of basilar scarring. Pleura: No pleural effusion. No pneumothorax. Bones: Degenerative changes of the spine. Multiple healed right rib fractures. Status post cholecystectomy. CT/Chest WITH Contrast IMPRESSION: Hyperinflation. Mild degree of linear scarring at the lung bases. One or more dose reduction techniques were used (e.g., Automated exposure contr ol, adjustment of the mA and/or kV according to patient size, use of iterative reconstruction technique). Reading Location: [place] [address]
== END | disposition home or self-care (01) ==
LOC: CT 13:53
PROVIDERS: PCP Family Medicine; Referring Provider Family Medicine; Visit Provider Family Medicine
DX: R05.9 Cough, unspecified (principal)
CPT/HCPCS: 71260; Q9967

== ENCOUNTER 2025-04-08 23:06 | Emergency (ER) | payer MEDICARE, SELFPAY ==
[2025-04-08 23:07] VITALS: BP 182/117; PULSE 76; RESP 18; TEMP 36.6; O2SAT 96; BMI 22.1
--- NOTE | 2025-04-08 23:15 | EX.ED.GENINJ ---
HPI History of Present Illness Chief Complaint: Fall PFSH PFSH Medical History Bradycardia Irritant contact dermatitis due to plant SVT (supraventricular tachycardia) Nonrheumatic mitral valve stenosis with insufficiency Premature ventricular contractions HLD (hyperlipidemia) Home Medications ?Medication ?Instructions ?Recorded ?Last Taken ?Type amiodarone 200 mg tablet 200 mg PO DAILY #90 tabs 07/25/24 Unknown Rx apixaban 5 mg tablet (Eliquis) 5 mg PO BID #180 tabs 09/02/24 Unknown Rx zolpidem 12.5 mg tablet,extended 12.5 mg PO QDAY PRN 03/03/25 Unknown History release,multiphase oxycodone 5 mg tablet 5 mg PO Q6H PRN pain 5 days #20 04/09/25 Unknown Rx tabs Allergy/AdvReac Type Severity Reaction Status Date / Time Sulfa (Sulfonamide Allergy doesnt Verified 04/08/25 23:08 Antibiotics) know why Surgical History S/P trigger finger release Hx of shoulder surgery History of bladder suspension procedure Social History Smoking Status: Never smoker alcohol intake: never substance use type: does not use caffeine: Yes Type: coffee Number of servings: 1 EXAM Physical Exam Const Vital Signs: 04/08/25 23:07 Temperature 98 F Temperature Source Oral Pulse Rate 76 Respiratory Rate 18 Blood Pressure 182/117 H Blood Pressure Mean 138 Pulse Ox 96 Oxygen Delivery Method Room Air [facility] [place] Narr[place] Medical decision making narrative: HISTORY OF PRESENT ILLNESS: Chief complaint: Right shoulder pain 80-year-old female history of A-fib on Eliquis, hyperlipidemia presents with right shoulder pain after tripping and falling outside. Denies any other injury. Denies head trauma. No LOC. REVIEW OF SYSTEMS: Pertinent positives: Shoulder pain Pertinent negatives: Numbness, tingling, loss of sensation. PHYSICAL EXAM: Nursing triage notes reviewed, Vital signs reviewed Constitutional: please see mdm HENT: MMM, atraumatic, normocephalic Eyes: Pupils equal round and reactive to light, Extraocular muscles intact Neck: No stridor, no JVD, full neck ROM Lungs: Clear to auscultation, No wheezing or rales. No increased work of breathing, no conversational dyspnea, no accessory muscle use, no nasal flaring. No respiratory distress noted Heart: Regular rate and rhythm, No murmurs, No rubs and No gallops, 2+ distal pulses (radial, femoral, posterior tibial) in all extremities Abdomen: Soft, there is no tenderness, rigidity, rebound or guarding, no obvious peritoneal signs, no palpable pulsatile abdominal masses, no auscultated abdominal bruit : No CVAT Extremities: TTP over proximal humerus. No obvious step-off or deformity noted to the right shoulder. No clavicular tenderness. Neuro: Intact 5/5 strength with ok sign (median), intact finger abduction (ulnar) intact wrist extension (radial n). Intact sensation in the radial, ulnar, and median nerve distributions. Skin: No rash or lesions noted. No sign of open fracture MEDICAL DECISION MAKING: Chief Complaint: please see HPI External records reviewed: Reviewed medications and prior imaging. Factors affecting care: A-fib on [employer] Social determinants of health: Elderly History obtained from others: Friend Consults: Orthopedic surgery (Dr. Delvalle) MDM Narrative: Patient was initially he hypertensive otherwise hemodynamically stable afebrile and nontoxic-appearing. Primary secondary trauma surveys concerning for the following differential: I obtained imaging to further determine if the patient was suffering from a life-threatening etiology. ALL IMAGES (IF OBTAINED) HAVE BEEN PERSONALLY REVIEWED AND INTERPRETED BY MYSELF. X-ray of the right humerus and shoulder were read and reviewed personally by myself.Interpreted by myself. Noted proximal humerus fracture. Radiology agreed my interpretation. Discussed with orthopedics on-call who recommended sling and discharged with pain control. Prompt orthopedic outpatient evaluation recommended. The patient and/or family, caregivers express understanding. The patient and/or family, caregivers agrees with the plan. Shared decision making: I will have a discussion with the patient and or visitors regarding risk/benefits of further testing or admission. They will be made aware of of the risk/benefits inherent in this decision they will be given the opportunity to voice understanding. Total critical care time today provided was at least 0 minutes. This excludes separately billable procedures. Critical care time (if documented) is secondary to the patient having high probability of clinically significant/life threatening deterioration in the patient's condition which required my urgent intervention. Impression: 1. Acute shoulder pain 2. Proximal humerus fracture Dispo: Discharge home This note was generated with [employer] dictation software. It may contain incorrect words, spelling, and punctuation that were not noted in review of the chart prior to signing. Radiography Diagnostic Testing: Clinical Impression(s) from Imaging Studies Shoulder X-Ray 04/08/25 23:26 IMPRESSION: Acute impacted fracture of the humeral surgical neck extending through the greater humeral tuberosity. Calcific tendinosis at the humeral insertion of the rotator cuff tendons. Chronic deformities of the axillary portions of the right 6, 7th and 8th ribs. Mild osteopenia of the visualized bones. Degenerative joint disease. Reading Location: [id number] Humerus X-Ray 04/08/25 23:59 IMPRESSION: Acute impacted fracture of the humeral surgical neck extending to the greater humeral tuberosity. Calcific tendinosis at the humeral insertion of the rotator cuff tendons. Reading Location: [place] [address] Discharge Plan Triage Chief Complaint: Fall ED Provider: Kwan Mcdaniels Dx/Rx/DC Orders Instructions: Understanding a Humerus Fracture Prescriptions: New oxycodone 5 mg tablet 5 mg PO Q6H PRN (Reason: pain) 5 Days Qty: 20 0RF No Action Eliquis 5 mg tablet 5 mg PO BID Qty: 180 3RF zolpidem 12.5 mg tablet,ext release multiphase 12.5 mg PO QDAY PRN amiodarone 200 mg tablet 200 mg PO DAILY Qty: 90 3RF Primary Care Provider: Wilson Brizuela Referrals: Wyatt Delvalle DO [Med Staff - Active Staff] - Activity Restrictions/Additional Instructions: Thank you for trusting us with your care today! The x-ray of your right shoulder shows a broken bone. Shows a fracture/break of your humerus which is the medical term for your upper arm bone. Please take Tylenol (2 pills, 650 mg), ibuprofen (2 pills, 400 mg) every 6 hours as needed for pain and fever control. Please take oxycodone for breakthrough pain. Please wear your sling For comfort and stability. Please return to the emergency department if your symptoms change or worsen. Please follow with your primary care physician for further outpatient evaluation and management. Print Language: Irish Disposition Disposition: Home, Self Care
--- NOTE | 2025-04-08 23:26 | RAD_ITS ---
PROCEDURE: SHOULDER MIN 2 VIEWS 04/09/2025 REASON FOR EXAM: PAIN AFTER FALL TECHNIQUE: SHOULDER MIN 2 VIEWS Laterality: RIGHT COMPARISON: None. FINDINGS: Acute impacted fracture of the humeral surgical neck extending through the greater humeral tuberosity. Calcific tendinosis at the humeral insertion of the rotator cuff tendons. Chronic deformities of the axillary portions of the right 6, 7th and 8th ribs. Mild osteopenia of the visualized bones. Degenerative joint disease. No dislocation is seen. No lytic or blastic bone lesion is noted. RAD/Shoulder min 2 Views IMPRESSION: Acute impacted fracture of the humeral surgical neck extending through the grea ter humeral tuberosity. Calcific tendinosis at the humeral insertion of the rotator cuff tendons. Chronic deformities of the axillary portions of the right 6, 7th and 8th ribs. Mild osteopenia of the visualized bones. Degenerative joint disease. Reading Location: [facility]
[2025-04-08] MEDS: HYDROcodone Bitartrate/Apap 5/325 Tablet PO (23:33)
--- NOTE | 2025-04-08 23:59 | RAD_ITS ---
PROCEDURE: HUMERUS MIN 2 VIEWS 04/09/2025 REASON FOR EXAM: PAIN OVER PROXIMAL HUMERUS TECHNIQUE: HUMERUS MIN 2 VIEWS Laterality: RIGHT COMPARISON: None. FINDINGS: Acute impacted fracture of the humeral surgical neck extending to the greater humeral tuberosity. Calcific tendinosis at the humeral insertion of the rotator cuff tendons. Mild osteopenia of the visualized bones. Degenerative joint disease. No dislocation is seen. No lytic or blastic bone lesion is noted. RAD/Humerus min 2 Views IMPRESSION: Acute impacted fracture of the humeral surgical neck extending to the greater h umeral tuberosity. Calcific tendinosis at the humeral insertion of the rotator cuff tendons. Reading Location: [place]
[2025-04-09 02:12] VITALS: BP 129/76; PULSE 80; RESP 16; TEMP 36.7; O2SAT 100
== END 2025-04-09 02:13 | disposition home or self-care (01) ==
PROVIDERS: Emergency Provider Emergency Medicine; PCP Family Medicine; Visit Provider Emergency Medicine
DX: S42.201A Unspecified fracture of upper end of right humerus, initial encounter for closed fracture (principal); I48.91 Unspecified atrial fibrillation; E78.5 Hyperlipidemia, unspecified; W18.30XA Fall on same level, unspecified, initial encounter; Y92.89 Other specified places as the place of occurrence of the external cause; Z79.01 Long term (current) use of anticoagulants
CPT/HCPCS: 73030; 73060; 99284

== ENCOUNTER → 2025-06-02 | Outpatient (CLI) | payer MEDICARE, SELFPAY | END | disposition home or self-care (01) | LOC: LABSPEC 12:36 | PROVIDERS: PCP Family Medicine; Referring Provider Family Medicine; Visit Provider Family Medicine | DX: N30.91 Cystitis, unspecified with hematuria (principal) | CPT/HCPCS: 87077; 87086; 87088; 87186 ==

== ENCOUNTER → 2025-06-11 | Outpatient (CLI) | payer MEDICARE, SELFPAY | END | disposition home or self-care (01) | LOC: LABSPEC 12:38 | PROVIDERS: PCP Family Medicine; Referring Provider Family Medicine; Visit Provider Family Medicine | DX: R30.0 Dysuria (principal) | CPT/HCPCS: 87086; 87088 ==

== ENCOUNTER → 2025-06-12 | Outpatient (CLI) | payer MEDICARE, SELFPAY ==
--- NOTE | 2025-06-12 16:57 | RAD_ITS ---
PROCEDURE: CHEST PA AND LATERAL 06/12/2025 REASON FOR EXAM: COUGH TECHNIQUE: Procedure Code: RADCXR Modality: DX Procedure: CHEST PA AND LATERAL COMPARISON: CT chest dated 10/21/2024 and chest radiograph of 08/05/2024 FINDINGS: The lungs are hyperinflated. Multifocal patchy airspace disease present through the lung. Findings could reflect atypical pneumonia in the correct clinical setting. Cardiomegaly. Atherosclerosis of the aorta. No pneumothorax or effusion. Comminuted fracture through the right proximal humerus. RAD/Chest PA and Lateral IMPRESSION: Multifocal airspace disease worse in the upper lobes concerning for atypical pn eumonia. Cardiomegaly. Reading Location: [id number]
== END | disposition home or self-care (01) ==
LOC: MTRAD 16:56
PROVIDERS: PCP Family Medicine; Referring Provider Family Medicine; Visit Provider Family Medicine
DX: R05.9 Cough, unspecified (principal)
CPT/HCPCS: 71046

== ENCOUNTER → 2025-06-19 | Outpatient (CLI) | payer MEDICARE, SELFPAY ==
--- NOTE | 2025-06-19 | CYSPIN_PTH ---
PATIENT: SUSAN BURRELL LOC: [facility] U#:[id number] AGE/SX: 80/F ROOM: RE06/19/[address]: Dr. Wilson Brizuela, : 1945 BED: DIS: 06/19/2025 SPEC #: [id number] RECD: 06/19/25 14:35 STATUS: DEJAH BARBIE #: [id number] NELI: 06/19/25 00:[address]: Wilson Brizuela DEPT: CYTOLOGY RECD BY: Pardeep Johnston Tissues: A - Urine Procedures: Pap Stain (control) Special Stain Group II Cytospin Fluid HEADER OPERATION: Not noted PRE-OP DIAGNOSIS: Hematuria TISSUE SUBMITTED: A- Urine for cytology - CLEAN CATCH DIAGNOSIS CYTOLOGY A. Urine, voided (cytospin): - Atypical urothelial cells, negative for high grade urothelial carcinoma. - Acute inflammation and blood. CYTOLOGY STUDY Slides are reviewed. CYTOLOGY GROSS A. Received is 25 ml of cloudy-red fluid labeled with the patient's name and and designated per the requisition as urine. Submitted for cytology preparation. 06/22/2025 CPT: 05006
[2025-06-19 15:38] LABS: Cytology, Body Fluid / CSF SEE PATHOLOGY REPORT
== END | disposition home or self-care (01) ==
LOC: LABSPEC 15:34
PROVIDERS: PCP Family Medicine; Visit Provider Family Medicine
DX: R31.9 Hematuria, unspecified (principal)
CPT/HCPCS: 87086; 87088; 88108; 88313

== ENCOUNTER 2025-06-22 14:09 | Inpatient (IN) | payer MEDICARE, SELFPAY ==
[2025-06-22] VITALS (21 sets, daily range): BP systolic 102–140; BP diastolic 58–72; PULSE 69–78; RESP 20–36; TEMP 36.2–37.9; O2SAT 60–98; BMI 20.5; BMI 20.9
--- NOTE | 2025-06-22 14:34 | EKG12_ITS ---
Test Reason : SOB Blood Pressure : */* mmHG Vent. Rate : 77 BPM Atrial Rate : 77 BPM P-R Int : 226 ms QRS Dur : 156 ms QT Int : 410 ms P-R-T Axes : 47 90 -2 degrees QTcB Int : 463 ms Sinus rhythm with 1st degree A-V block Right bundle branch block Septal infarct , age undetermined Abnormal ECG Confirmed by Vaughn Sparks ([id number]), photography editor GENARO LUI ([id number]) on 06/23/2025 11:50:36 AM Referred By: Confirmed By: Vaughn Sparks
--- NOTE | 2025-06-22 14:36 | EDS_ITS ---
HPI History of Present Illness Chief Complaint: General Illness Detail of Chief Complaint: Not feeling well and short of breath Informant: patient Narrative Narrative: Patient presents to the emergency department complaint of not feeling well for about 2 weeks. Finished antibiotics for pneumonia 5 days ago. Patient complaining of pain in her chest with deep breath and feeling like she cannot take a deep breath. Normally does not wear home O2 and was noted to be 60% on room air on arrival to the emergency department. Patient denies fevers. She is currently on Eliquis for history of A-fib. She has been compliant with the Eliquis. No history of cancer. [facility] Medical History Bradycardia Irritant contact dermatitis due to plant SVT (supraventricular tachycardia) Nonrheumatic mitral valve stenosis with insufficiency Premature ventricular contractions HLD (hyperlipidemia) Home Medications ?Medication ?Instructions ?Recorded ?Last Taken ?Type apixaban 5 mg tablet (Eliquis) 5 mg PO BID #180 tabs 0 09/02/24 06/21/25 Rx zolpidem 12.5 mg tablet,extended 12.5 mg PO QDAY PRN i nsomnia 03/03/25 06/21/25 History release,multiphase oxycodone 5 mg tablet 5 mg PO Q6H PRN pain 5 days #20 04/09/25 06/21/25 Rx tabs amiodarone 200 mg tablet 200 mg PO DAILY #90 tabs 06/21/25 Rx trazodone 50 mg tablet 50 - 100 mg PO QHS 06/22/25 06/21/25 History Allergy/AdvReac Type Severity Reaction Status Date / Time Sulfa (Sulfonamide Allergy doesnt Verified 06/22/25 14:16 Antibiotics) know why Surgical History S/P trigger finger release Hx of shoulder surgery History of bladder suspension procedure Social History Smoking Status: Never smoker alcohol intake: never substance use type: does not use caffeine: Yes Type: coffee Number of servings: 1 ROS ROS ED Review of Systems ROS Unobtainable: other Constitutional Constitutional ED: Reports lethargy; Denies chills, fever(s), sweats or weight loss Eyes Eyes: Denies blurry vision, change in vision or diplopia ENT ENT ED: Denies rhinorrhea or sore throat Cardiovascular Cardiovascular: Reports chest pain; Denies orthopnea or racing heartbeat Respiratory/Chest Respiratory/Chest: Reports cough, dyspnea and dyspnea on exertion; Denies orthopnea or sputum Gastrointestinal Gastrointestinal: Denies abdominal pain, diarrhea, nausea or vomiting Genitourinary Genitourinary ED: Denies dysuria, hematuria or urinary frequency Musculoskeletal Musculoskeletal: Denies arthralgias, back pain, myalgias or neck pain Integumentary Denies abscess, Abrasions or rash Neurologic Neurologic: Denies headache(s) or weakness Psychiatric Psychiatric: Denies anxiety, depression or suicidal thoughts Endocrine Endocrinology: Denies polydipsia, polyphagia or polyuria Hematologic/Lymphatic Hematologic/Lymphatic: Denies easy bleeding, easy bruising or lymphadenopathy Allergic/Immunologic Allergic/Immunologic ED: Denies mouth swelling, tongue swelling or urticaria EXAM Physical Exam Const Vital Signs: 06/22/25 14:16 06/22/25 14:19 06/22/25 14:19 Temperature 97.7 F L 97.7 F L Temperature Source Oral Oral Pulse Rate 76 76 Respiratory Rate 22 H 22 H Respiratory Pattern Blood Pressure 140/72 H 140/72 H Blood Pressure Mean 94 94 Pulse Ox 60 93 60 Oxygen Delivery Method Room Air Nasal Cannula Room Air Oxygen Flow Rate (L/min) 5 Fraction of Inspired Oxygen (FIO2) 06/22/25 14:44 06/22/25 15:01 06/22/25 15:01 Temperature Temperature Source Pulse Rate 76 Respiratory Rate 21 H Respiratory Pattern Tachypnea Blood Pressure Blood Pressure Mean Pulse Ox 95 Oxygen Delivery Method Room Air Venturi Mask Oxygen Flow Rate (L/min) 15 Fraction of Inspired Oxygen (FIO2) 50 06/22/25 15:19 Temperature 100.2 F H Temperature Source Axillary Pulse Rate 78 Respiratory Rate 30 H Respiratory Pattern Blood Pressure 121/58 H Blood Pressure Mean 79 Pulse Ox 92 Oxygen Delivery Method Airvo Oxygen Flow Rate (L/min) Fraction of Inspired Oxygen (FIO2) Positive well nourished and well developed General Appearance ED: well developed and NAD HEENT Reports TM's clear and moist mucous membranes normocephalic and atraumatic; Negative for trauma or tenderness Tympanic Membrane ED: Yes TM's clear Eyes PERRL and EOMs intact bilaterally General Eye ED: Negative for pale conjunctiva or scleral icterus Neck no lymphadenopathy, supple and no JVD General: Negative for tenderness Chest Wall inspection of chest normal and palpation of chest normal Chest: Negative for tenderness Resp normal respiratory effort and clear to auscultation bilaterally Effort and Inspection: Negative for respiratory distress or pain with movement Auscultation: Negative for rhonchi, wheezes or diminished lung sounds Cardio regular rate, regular rhythm, S1 normal heart sound, S2 normal heart sound and no murmurs Peripheral Pulses: pulses 2+ throughout GI normal to inspection, nondistended, normoactive bowel sounds, soft to palpation, non-tender, non-distended and no masses Back/Spine no CVA tenderness and no thoracic nor lumbar tenderness Extremity normal to inspection General Extremety ED: Negative for edema General Extremity: Negative for edema Neuro oriented x3, CN's II-XII intact bilaterally, no sensory deficits noted and gait normal Sensorium / Orientation: awake, alert, oriented to person, oriented to place and oriented to time Motor Exam: strength 5/5 throughout and strength abnormal Psych mental status grossly normal Skin no rashes or lesions noted and no wounds MDM MDM MDM Narrative Medical decision making narrative: Patient presents with dyspnea and hypoxemia. Also with urinary symptoms. Blood cultures ordered. Patient placed on oxygen nonrebreather mask. CBC with differential obtained showed a white count 22.7 with hemoglobin 13.2 and platelet count of 447. Chemistries unremarkable. Troponin slightly elevated at 20 and BT [employer]ICER was normal at 1481. 1 view chest x-ray obtained showed cardiomegaly and CHF per radiologist. My interpretation felt increased lung markings in the right and left lungs could be consistent with pneumonia. Given patient's elevated WBC count hypoxia and shortness of breath as well as low- grade fever we will start on Levaquin for pneumonia. Discussed case with hospitalist will evaluate patient for admission. Urinalysis also ordered and is currently pending. Lab Data Attestation: I reviewed the patient's lab results. Labs: Laboratory Results - last 24 hr 06/22/25 14:41 WBC 22.7 H RBC 4.20 Hgb 13.2 Hct 39.1 MCV 93.1 MCH 31.4 MCHC 33.8 RDW Std Deviation 47.2 H RDW Coeff of Hilda 13.9 Plt Count 447 MPV 9.8 Immature Gran % (Auto) 3.400 H Neut % (Auto) 85.9 H Lymph % (Auto) 3.9 L [place] % (Auto) 6.6 Eos % (Auto) 0.0 Baso % (Auto) 0.2 Absolute Neuts (auto) 19.4 H Absolute Lymphs (auto) 0.89 Nucleated RBC % 0 Sodium 129 L Potassium 4.1 Chloride 93 L Carbon Dioxide 20.4 L Anion Gap 15 BUN 20 H Creatinine 0.77 Estim Creat Clear Calc 52.49 Est GFR (MDRD) Non-Af 78 BUN/Creatinine Ratio 25.9 H Glucose 112 H Calcium 8.3 Troponin T High Sens 20 H NT pro BNP II 1481 Radiography Diagnostic Testing: Clinical Impression(s) from Imaging Studies Chest X-Ray 06/22/25 14:45 IMPRESSION: Cardiomegaly and CHF. Reading Location: [place] [id number] 1 view chest x-ray obtained interpreted by myself as increased markings right lower lobe and left lower lobe consistent with pneumonia. Radiology felt there was cardiomegaly and CHF. EKG Initial EKG: Attestation: I personally reviewed and interpreted this EKG as follows: Comments: Sinus rhythm with rate of 77 bpm with right bundle branch block Discharge Plan Dx/Rx/DC Orders Clinical Impression: Respiratory failure, Pneumonia, Leukocytosis Disposition Disposition: Acute Care [facility]
--- NOTE | 2025-06-22 14:45 | RAD_ITS ---
PROCEDURE: CHEST 1 VIEW (PORTABLE) 06/22/2025 REASON FOR EXAM: DYSPNEA TECHNIQUE: Frontal view of the chest. COMPARISON: June 12, 2025. FINDINGS: Hardware: EKG electrodes are seen. Heart: Heart size is moderately enlarged. Lungs: Vascular congestion and CHF. Increased markings at the left lung base suggestive of atelectasis. Bones: Degenerative changes are identified within the thoracic spine. There are multiple healed right rib fractures. Degenerative changes of the right shoulder. RAD/Chest 1 View (Portable) IMPRESSION: Cardiomegaly and CHF. Reading Location: [place] [id number]
[2025-06-22 15:07] LABS: Hematocrit 39.1 % (37-47); Hemoglobin 13.2 g/dL (12.0-15.0); Immature Granulocytes Count 0.770 X10^3/uL (0.0-0.0); Mean Corp Hgb Conc 33.8 g/dL (32-36); Mean Corpuscular Volume 93.1 fL (81-99); Mean Platelet Vol. 9.8 fl (6.2-12.0); NRBC Flagged by Analyzer 0 % (0-5); Platelet Count 447 K/mm3 (150-450); RBC Distribution Width CV 13.9 % (11.6-14.6); RBC Distribution Width SD 47.2 fl (35.1-43.9); Red Blood Count 4.20 M/mm3 (4.2-5.4); White Blood Count 22.7 K/mm3 (4.4-11.0)
[2025-06-22 15:32] LABS: Anion Gap 15 (5-15); BUN 20 mg/dL (4-19); BUN/Creat Ratio 25.9 RATIO (10-20); Calcium,Total 8.3 mg/dL (7.6-11.0); Carbon Dioxide 20.4 mmol/L (21.0-32.0); Chloride 93 mmol/L (98-108); Estimated Creatinine Clearance 52.49 ml/min (50-250); Glucose 112 mg/dL (70-99); Potassium 4.1 mmol/L (3.3-5.1)
[2025-06-22 15:34] LABS: Pro- Brain NATRIURETIC PEPTIDE 1481 pg/mL (<=1800); Troponin T High Sensitivity 20 ng/L (<=14)
[2025-06-22] MEDS: levoFLOXacin IV 750 MG/150 ML BAG 100 MG IV (15:34)
[2025-06-22 15:41] LABS: Squamous Epithelial Cells - UA 0 SEEN /hpf (5-10)
[2025-06-22 15:45] LABS: Glucose, Dipstick Normal (Normal); Ketone-Dipstick 5 mg/dl (Negative); Leukocyte Esterase-Dipstick 25 /ul (Negative); Nitrite-Dipstick Negative (Negative); Occult Blood-Urine 250 /ul (Negative); Protein-Dipstick 100 mg/dl (Negative); Specific Gravity, Urine 1.025 (1.002-1.030); Urine Bilirubin Dipstick Negative (Negative)
[2025-06-22 16:06] LABS: Color, Urine DARK YELLOW (Yellow); Red Blood Cells-Urine 25-50 SEEN /hpf (0-5)
[2025-06-22 16:07] LABS: Mucous, Urine 1+ /hpf (<or=2+)
[2025-06-22 16:20] LABS: D-Dimer Quantitative (DVT/PE) 0.68 FEU/ug/m (0.27-0.49)
--- NOTE | 2025-06-22 17:20 | CASEMGMT ---
Care Management Face to Face with patient for initial transition planning/care coordination assessment in the ED. This film writer introduced self and role at [facility]. Patient alert and oriented. Patient willing to participate in assessment and is able to answer all questions appropriately. Care providers, pharmacy, and demographics verified. Admitting Diagnosis: leukocytosis Other diagnosis history: a-fib, HLD PCP: Dr Brizuela Specialists: Dr Garcia Preferred Pharmacy: [facility] Insurance: [employer] Medicare Prescription Benefit: yes Living Will/HPOA: patient says son (Michael) is likely added as primary, but inability to bring in documents during admission. LNOK: son, Michael. Living Arrangements: lives with Sy in a 1 story home with 3 steps to enter. Independent with ADLs/IADLs. Transportation: patient drives DME: none (patient on Airvo in ED due to 60% O2 in triage) HHC: none SNF/Rehab: none Community Resources: none Patient goals: Patient wishes to discharge home, denies need for home health care at this time. Patient denies any further needs or concerns at this time. Disposition Plan: admission to acute; RN CM/SW to follow for discharge planning needs that may arise. Galilea Perry, CINETECHNICIAN, BUILDING STONECUTTER
[2025-06-22 17:38] LABS: Troponin T High Sens 2 HR 22 ng/L (<=14)
--- NOTE | 2025-06-22 17:42 | PCM.HP.STD ---
HPI - General General Date of Admission: 06/22/25 Date of Service: 06/22/25 Chief Complaint: Shortness of breath, urinary frequency HPI Narrative SUSAN BURRELL, is a 80 F who presents to the emergency room at [facility] with complaints of shortness of breath times several days along with several weeks of urinary symptomology consisting of urinary frequency and blood in the urine. Patient also states that she has had episodic diarrhea for the last several weeks. Patient been treated as an outpatient with 2 courses of antibiotics without improvement. Patient also stated that she was treated for early pneumonia recently and placed on antibiotics. Patient denies any fever or chills at home, she does state that she coughs and brings up mucoid appearing sputum. According to nursing in the emergency room, patient had been given a Medrol Dosepak the last week in May of this year. Workup in the emergency room included a CBC which showed an elevated white blood cell count of 22.7, patient's sodium was low at 129, chloride was low at 93, and BUN was 20. Patient's troponin was minimally elevated at 20 and 22. Beta natruretic peptide was normal. Urinalysis was remarkable for 25-50 RBCs and 5-10 WBCs as well as +1 bacteria. Patient's chest x-ray revealed the heart size to be moderately enlarged, x-ray was read out as indicating congestive heart failure, there were also increased markings at the left lung base suggestive of atelectasis. Patient's RSV, COVID-19, and influenza PCR was unremarkable. Patient required high flow oxygen in the emergency room including Airvo, she will be admitted to ICU and she will be seen in consultation by pulmonary medicine. Patient was started on Levaquin IV in the emergency room and this will continue. Aerosol treatments will be given, respiratory panel will be obtained [facility] Medical History Bradycardia Irritant contact dermatitis due to plant SVT (supraventricular tachycardia) Nonrheumatic mitral valve stenosis with insufficiency Premature ventricular contractions HLD (hyperlipidemia) Home Medications ?Medication ?Instructions ?Recorded ?Last Taken ?Type apixaban 5 mg tablet (Eliquis) 5 mg PO BID #180 tabs 09/02/24 06/21/25 Rx zolpidem 12.5 mg tablet,extended 12.5 mg PO QDAY PRN insomnia 03/03/25 06/21/25 History release,multiphase oxycodone 5 mg tablet 5 mg PO Q6H PRN pain 5 days #20 04/09/25 06/21/25 Rx tabs amiodarone 200 mg tablet 200 mg PO DAILY #90 tabs 06/01/25 06/21/25 Rx trazodone 50 mg tablet 50 - 100 mg PO QHS 06/22/25 06/21/25 History Allergy/AdvReac Type Severity Reaction Status Date / Time Sulfa (Sulfonamide Allergy doesnt Verified 06/22/25 14:16 Antibiotics) know why Surgical History S/P trigger finger release Hx of shoulder surgery History of bladder suspension procedure Social History Smoking Status: Never smoker alcohol intake: never substance use type: does not use caffeine: Yes Type: coffee Number of servings: 1 ROS Constitutional Constitutional: Denies anorexia, change in weight, fever(s), night sweats or weakness Eyes Eyes: Denies blurry vision, change in vision, discharge from eye(s) or eye pain Cardiovascular Cardiovascular: Reports dyspnea on exertion; Denies chest pain, claudication, edema or palpitations Respiratory/Chest Respiratory/Chest: Reports cough, productive cough, shortness of breath at rest and shortness of breath with exertion; Denies hemoptysis Gastrointestinal Gastrointestinal: Reports diarrhea; Denies abdominal pain, constipation, hematemesis, hematochezia, melena, nausea or vomiting Genitourinary Genitourinary: Denies dysuria, hematuria, urinary frequency, urinary hesitancy, urinary incontinence or urinary urgency Musculoskeletal Musculoskeletal: Denies back pain, joint pain, joint stiffness, joint swelling, myalgias or neck pain Neurologic Neurologic: Denies abnormal gait, abnormal speech, dizziness, focal weakness, headache(s), loss of vision, numbness, other visual disturbances, paresthesias, syncope or tingling Psychiatric Psychiatric: Denies anxiety, cognitive impairment, depression, irritability, mood swings or suicidal ideation Endocrine Endocrinology: Denies change in body appearance, cold intolerance, excessive sweating, heat intolerance, polydipsia or polyuria Hematologic/Lymphatic Hematologic/Lymphatic: Denies none, anemia, easy bleeding, easy bruising or lymphadenopathy Allergic/Immunologic Allergic/Immunologic: Denies rhinitis, urticaria, eczemia or asthma Vital Signs Vital Signs Vital Signs: 06/22/25 14:16 06/22/25 14:19 06/22/25 14:19 Temperature 97.7 F L 97.7 F L Temperature Source Oral Oral Pulse Rate 76 76 Respiratory Rate 22 H 22 H Respiratory Pattern Blood Pressure 140/72 H 140/72 H Blood Pressure Mean 94 94 Pulse Ox 60 93 60 Oxygen Delivery Method Room Air Nasal Cannula Room Air Oxygen Flow Rate (L/min) 5 Fraction of Inspired Oxygen (FIO2) 06/22/25 14:44 06/22/25 15:01 06/22/25 15:01 Temperature Temperature Source Pulse Rate 76 Respiratory Rate 21 H Respiratory Pattern Tachypnea Blood Pressure Blood Pressure Mean Pulse Ox 95 Oxygen Delivery Method Room Air Venturi Mask Oxygen Flow Rate (L/min) 15 Fraction of Inspired Oxygen (FIO2) 50 06/22/25 15:19 06/22/25 16:00 06/22/25 16:22 Temperature 100.2 F H 100.3 F H Temperature Source Axillary Axillary Pulse Rate 78 77 Respiratory Rate 30 H 36 H Respiratory Pattern Blood Pressure 121/58 H 126/69 H Blood Pressure Mean 79 88 Pulse Ox 92 92 97 Oxygen Delivery Method Venturi Mask Venturi Mask High Flow Oxygen Flow Rate (L/min) 40 Fraction of Inspired Oxygen (FIO2) 55 06/22/25 16:30 06/22/25 17:00 06/22/25 17:19 Temperature 98.9 F 99.0 F 98.9 F Temperature Source Oral Oral Pulse Rate 76 77 75 Respiratory Rate 34 H 26 H 28 H Respiratory Pattern Blood Pressure 112/64 118/72 118/66 Blood Pressure Mean 80 87 83 Pulse Ox 93 94 92 Oxygen Delivery Method Airvo Airvo Oxygen Flow Rate (L/min) Fraction of Inspired Oxygen (FIO2) Weight Weight: 59.285 kg Body Mass Index (BMI) 20.5 Physical Exam Const alert, oriented x3, no apparent distress, average body habitus and healthy appearing General Appearance: cooperative, well kempt and well developed Orientation / Consciousness: awake, oriented to person, oriented to place and oriented to time HEENT normocephalic, head/scalp atraumatic, hearing grossly normal bilaterally and moist oral mucous membranes Eyes PERRL, EOMs intact bilaterally and conjunctivae normal Neck supple, no JVD, thyroid normal and no carotid bruits General: trachea midline Resp normal respiratory effort, no retractions and no use of accessory muscles Resp Narrative: Inspiratory rales are noted over the lower lung dyer bilaterally, no rhonchi or wheezes were noted Auscultation: rales bilateral and diffuse; Negative for rhonchi or wheezes Cardio regular rate, regular rhythm, S1 normal heart sound, S2 normal heart sound, no murmurs, no rub and no gallops GI normal to inspection, nondistended, normoactive bowel sounds, soft to palpation, non-tender and non-distended Extremity no clubbing, cyanosis or edema Skin no rashes or lesions noted General Skin Exam: no breakdown Neuro oriented x3, CN's II-XII intact bilaterally, moves all extremities, no focal motor deficits and no sensory deficits noted Sensorium / Orientation: awake, alert, oriented to person, oriented to place and oriented to time Speech: speech normal Psych affect normal Results Lab / Micro Data 06/22/25 14:41 06/22/25 14:41 Labs: Laboratory Results - last 24 hr 06/22/25 14:41: WBC 22.7 H, RBC 4.20, Hgb 13.2, Hct 39.1, MCV 93.1, MCH 31.4, MCHC 33.8, RDW Std Deviation 47.2 H, RDW Coeff of Hilda 13.9, Plt Count 447, MPV 9.8, Immature Gran % (Auto) 3.400 H, Neut % (Auto) 85.9 H, Lymph % (Auto) 3.9 L, [place] % (Auto) 6.6, Eos % (Auto) 0.0, Baso % (Auto) 0.2, Absolute Neuts (auto) 19.4 H, Absolute Lymphs (auto) 0.89, Nucleated RBC % 0, D-Dimer Quant (PE/DVT) 0.68 H*, Sodium 129 L, Potassium 4.1, Chloride 93 L, Carbon Dioxide 20.4 L, Anion Gap 15, BUN 20 H, Creatinine 0.77, Estim Creat Clear Calc 52.49, Est GFR (MDRD) Non-Af 78, BUN/Creatinine Ratio 25.9 H, Glucose 112 H, Calcium 8.3, Troponin T High Sens 20 H, NT pro BNP II 1481 06/22/25 15:36: Urine Color DARK YELLOW, Urine Clarity Cloudy, Urine pH 6.0, Ur Specific [place] 1.025, Urine Protein 100 H, Urine Glucose (UA) Normal, Urine Ketones 5 H, Urine Occult Blood 250 H, Urine Nitrite Negative, Urine Bilirubin Negative, Urine Urobilinogen 1 H, Ur Leukocyte Esterase 25 H, Urine RBC 25-50 SEEN, Urine WBC 5-10 SEEN, Ur Squamous Epith Cells 0 SEEN, Urine Bacteria 1+, Hyaline Casts 0 SEEN, Urine Mucus 1+ 06/22/25 16:51: Troponin T Hi Sens 2 Hr 22 H Micro: Microbiology 06/22/25 15:36 Mucosa - Nose SARS-CoV-2, Influenza & RSV (PCR) - Final Imaging Radiology Impression Chest X-Ray 06/22/25 14:45 IMPRESSION: Cardiomegaly and CHF. Reading Location: [place] [address] Assessment & Plan Assessment/Plan (1) Pneumonia: PLAN: Plan 1. Acute hypoxic respiratory failure-patient will be admitted to ICU, she is currently on Airvo, she will receive aerosol treatments and IV antibiotics, she will be seen in consultation by pulmonary medicine #2 community-acquired [id number] will receive IV Levaquin, respiratory panel will be obtained, urine antigens for strep and Legionella will be ordered #3 paroxysmal atrial fibrillation-patient will remain on amiodarone and apixaban Total clinical time spent by myself addressing the patient's medical issues, reviewing all of her data, and collaborating with patient's care team: 75 minutes Charges/Coding Visit Charges Inpatient E&M: 02059 Init Hosp L3
--- NOTE | 2025-06-22 17:53 | CT_ITS ---
PROCEDURE: ABDOMEN/PELVIS WITHOUT CONT 06/22/2025 REASON FOR EXAM: HEMATURIA TECHNIQUE: Procedure Code: CTABDPEL Modality: CT Procedure: ABDOMEN/PELVIS WITHOUT CONT Noncontrast technique limits evaluation of the abdominal and pelvic viscera. Coronal and Sagittal reconstruction series were provided. One or more dose reduction techniques were used (e.g., Automated exposure control, adjustment of the mA and/or kV according to patient size, use of iterative reconstruction technique). RADIATION DOSE SUMMARY: CTDlvol: 10 mGy DLP: 520 mGycm FINDINGS: Patchy consolidative and ground-glass opacities of the lung bases. Degenerative changes of the spine. Moderate atherosclerosis. Normal caliber abdominal aorta. No suspicious lymphadenopathy. Intra and extrahepatic biliary ductal dilation status post cholecystectomy the pancreas, spleen, and adrenals unremarkable. Left renal pelvis 13 mm nonobstructive calculus. Mild left hydronephrosis. Calcific densities within the pelvis not directly trace to the ureter. Consider CT urography to exclude a ureteral calculus. Additional punctate bilateral nonobstructive renal calculi. Colonic diverticulosis without surrounding inflammatory changes. Normal appendix. Normal caliber large and small bowel. CT/Abdomen/Pelvis without Cont IMPRESSION: Left renal pelvis 13 mm nonobstructive calculus with mild left hydronephrosis. Additional punctate bilateral nonobstructive renal calculi. Calcific densities within the pelvis not definitively traceable to the ureter-CT urography recommended to exclude ureteral calculus. Intra and extrahepatic biliary ductal dilation status post cholecystectomy, lik stacia post-surgical. Colonic diverticulosis without evidence of acute diverticulitis. Patchy consolidative and ground-glass opacities at the lung bases, nonspecific- may represent atelectasis or infection. Reading Location: [id number]
--- NOTE | 2025-06-22 20:55 | PCM.HOSP.N ---
Hospitalist Note Pt having anxiety, rocking in bed, asking if it's ok to have calming medication before CT scan. I had considered hydroxyzine pamoate, but her QT is currently at upper limit of 0.4; order placed for diphenhydramine 25mg IV x1.
--- NOTE | 2025-06-22 21:04 | CT_ITS ---
PROCEDURE: CTA CHEST W/WO CONTRAST 06/22/2025 REASON FOR EXAM: ELEVATED D-DIMER TECHNIQUE: Procedure Code: CTCTACHWW Modality: CT Procedure: CTA CHEST W/WO CONTRAST Multiplanar Sagittal and Coronal images were obtained. 3D post processing was performed. One or more dose reduction techniques were used (e.g., Automated exposure control, adjustment of the mA and/or kV according to patient size, use of iterative reconstruction technique). RADIATION DOSE SUMMARY: DLP: 755.39 mGycm COMPARISON: CT chest 10/21/2024. FINDINGS: PULMONARY VESSELS: No filling defects suspicious for pulmonary arterial emboli identified. Normal caliber main pulmonary trunk. No evidence of right heart strain. LUNGS/PLEURA: Extensive bilateral patchy airspace consolidation and ground-glass opacities throughout both lungs, likely reflecting multifocal pneumonia. There may be a component of pulmonary edema. Trace bibasilar pleural effusions. No pneumothorax. Patent central tracheobronchial airways. MEDIASTINUM: Diffuse increased number of mildly enlarged mediastinal and bilateral hilar lymph nodes, most likely reactive. No axillary lymphadenopathy. HEART: Mildly enlarged. Trace pericardial effusion. Scant coronary artery calcifications. THORACIC AORTA: Normal in course and caliber. Mild atherosclerotic disease. UPPER ABDOMEN: Partially imaged stone in the left renal pelvis. See separate abdominal CT report. BONES: Subacute comminuted impacted fracture of the left humeral head/surgical neck. Chronic superior endplate compression fracture deformity of T12 with minimal retropulsion. CT/CTA Chest W/WO Contrast IMPRESSION: 1. No pulmonary arterial emboli identified. 2. Extensive bilateral multifocal pneumonia. Presumed reactive mediastinal and hilar adenopathy. 3. Probable component of pulmonary edema, with trace bibasilar pleural effusion s. 4. Redemonstrated subacute comminuted impacted fracture of the left humeral hea d/surgical neck. 5. Partially imaged stone in the left renal pelvis; see separate abdominal CT r eport. Reading Location: [id number]
[2025-06-22] MEDS: 0.9% Normal Saline (1000mL) 1,000 ML 75 ML IV (21:14)
[2025-06-22] MEDS: DiphenhydrAMINE 50 MG/ML Syringe 25 MG IV (21:14)
[2025-06-22] MEDS: 0.9% Saline Lock 10 ML Syringe IV (21:18)
--- NOTE | 2025-06-22 23:17 | NURSING ---
[id number] via cart
--- NOTE | 2025-06-22 23:18 | NURSING ---
[id number] patient back in room. patient anxious and pulling at non rebreather. patient educated on necessity
[2025-06-22 23:23] LABS: Base Excess 0 mmol/L (-2 to +2); FI02 95.0; PO2 115 mmHG (75-100); SITE L Radial; SO2 99 % (94-98)
[2025-06-23] VITALS (35 sets, daily range): BP systolic 90–129; BP diastolic 45–101; PULSE 58–113; RESP 19–68; TEMP 36.5–36.7; O2SAT 70–99; BMI 21.3
[2025-06-23 04:40] LABS: Hematocrit 34.6 % (37-47); Hemoglobin 11.7 g/dL (12.0-15.0); Immature Granulocytes Count 0.160 X10^3/uL (0.0-0.0); Mean Corp Hgb Conc 33.8 g/dL (32-36); Mean Corpuscular Volume 92.8 fL (81-99); Mean Platelet Vol. 9.7 fl (6.2-12.0); NRBC Flagged by Analyzer 0 % (0-5); Platelet Count 374 K/mm3 (150-450); RBC Distribution Width CV 13.9 % (11.6-14.6); RBC Distribution Width SD 47.5 fl (35.1-43.9); Red Blood Count 3.73 M/mm3 (4.2-5.4); White Blood Count 17.6 K/mm3 (4.4-11.0)
--- NOTE | 2025-06-23 07:25 | EX.PCM.CONCC ---
Assessment & Plan Assessment/Plan (1) Pneumonia: (2) Respiratory failure: PLAN: Plan RECOMMENDATIONS: 1. Continue empiric broad-spectrum antimicrobials. 2. Corticosteroids as ordered. 3. Wean FiO2 to maintain saturations at or above 90%. 4. Eliquis per home regimen. 5. Send sputum for culture. Check strep and urine Legionella antigens. 6. Encourage incentive spirometer use and mobilize patient as tolerated. IMPRESSIONS: 1. Acute hypoxemic respiratory failure most likely secondary to severe community-acquired pneumonia Plan to continue supportive care with supplemental oxygen to maintain saturations at or above 90%. The patient's antimicrobials will be broadened, given her lack of response to outpatient therapy. In addition, we will check strep and urine Legionella antigens. Sputum culture will be obtained. Given her hypoxemia, will initiate corticosteroids, given mortality benefit noted with [place] trial. Encourage incentive spirometer use and mobilize patient as tolerated. 2. History of paroxysmal atrial fibrillation history of paroxysmal atrial fibrillation Complicates care, management, recovery and prognosis. Continue home medications as indicated. This note was generated with [employer] dictation software. It may contain incorrect words, spelling, and punctuation that were not noted in checking the note before signing. HPI Consult Data Date of Consult: 06/23/25 HPI Narrative Reason for Consultation: Acute hypoxemic respiratory failure HPI Narrative: The patient is an 80-year-old female, with a history as outlined below, who presented to the emergency department on June 22 with complaints of shortness of breath over the course of the last several weeks. The patient reported that 3 weeks ago she felt as if she was developing pneumonia and was evaluated by her PCP. She was apparently placed on a Z-Jair, which did not lead to significant symptom improvement. The patient reported that she does not utilize supplemental oxygen at her baseline. She has never been diagnosed with any pulmonary related conditions. She does endorse the presence of a mild, productive cough. In addition to the aforementioned, the patient reported that she also noted that her urine was concentrated and dark in color. On presentation to the emergency department, the patient was noted to be afebrile and hemodynamically stable. Initial laboratory evaluation revealed an elevated white blood cell count of 23,000. Chemistry profile was notable for a sodium of 129 with a chloride of 93, bicarbonate of 20 and creatinine of 0.7. Troponin was mildly elevated at 20. BNP was noted to be 1481. Urine analysis was positive for leukocyte esterase and 1+ urine bacteria. CTA chest showed no evidence for pulmonary embolism, but did reveal bilateral airspace disease with areas of consolidation and ground glass opacities. CT abdomen/pelvis demonstrated a nonobstructive calculus in the left kidney with mild left hydronephrosis. Due to the patient's presenting respiratory failure, she was placed on heated high flow oxygen along with antimicrobials and admitted to the medical intensive care unit. [facility] Medical History Bradycardia Irritant contact dermatitis due to plant SVT (supraventricular tachycardia) Nonrheumatic mitral valve stenosis with insufficiency Premature ventricular contractions HLD (hyperlipidemia) Home Medications ?Medication ?Instructions ?Recorded ?Last Taken ?Type apixaban 5 mg tablet (Eliquis) 5 mg PO BID #180 tabs 09/02/24 06/21/25 Rx zolpidem 12.5 mg tablet,extended 12.5 mg PO QDAY PRN insomnia 03/03/25 06/21/25 History release,multiphase oxycodone 5 mg tablet 5 mg PO Q6H PRN pain 5 days #20 04/09/25 06/21/25 Rx tabs amiodarone 200 mg tablet 200 mg PO DAILY #90 tabs 06/01/25 06/21/25 Rx trazodone 50 mg tablet 50 - 100 mg PO QHS 06/22/25 06/21/25 History Allergy/AdvReac Type Severity Reaction Status Date / Time Sulfa (Sulfonamide Allergy doesnt Verified 06/22/25 14:16 Antibiotics) know why Surgical History S/P trigger finger release Hx of shoulder surgery History of bladder suspension procedure Social History Smoking Status: Never smoker alcohol intake: never substance use type: does not use caffeine: Yes Type: coffee Number of servings: 1 ROS ROS Narrative 10 systems were reviewed with pertinent positives as noted in the HPI above. Physical Exam Const alert, oriented x3 and no apparent distress General Appearance: cooperative HEENT normocephalic and head/scalp atraumatic Eyes PERRL, EOMs intact bilaterally and conjunctivae normal Neck supple General: trachea midline Chest inspection of chest normal Resp normal respiratory effort Auscultation: rales Cardio regular rate and regular rhythm GI normal to inspection, nondistended, normoactive bowel sounds Extremity no clubbing, cyanosis or edema Skin no rashes or lesions noted Neuro CN's II-XII intact bilaterally, moves all extremities and no focal motor deficits Psych cooperative and affect normal Lab / Micro Data 06/23/25 04:15 06/23/25 08:35 Labs: Laboratory Results - last 24 hr 06/22/25 14:41: WBC 22.7 H, RBC 4.20, Hgb 13.2, Hct 39.1, MCV 93.1, MCH 31.4, MCHC 33.8, RDW Std Deviation 47.2 H, RDW Coeff of Hilda 13.9, Plt Count 447, MPV 9.8, Immature Gran % (Auto) 3.400 H, Neut % (Auto) 85.9 H, Lymph % (Auto) 3.9 L, [place] % (Auto) 6.6, Eos % (Auto) 0.0, Baso % (Auto) 0.2, Absolute Neuts (auto) 19.4 H, Absolute Lymphs (auto) 0.89, Nucleated RBC % 0, D-Dimer Quant (PE/DVT) 0.68 H*, Sodium 129 L, Potassium 4.1, Chloride 93 L, Carbon Dioxide 20.4 L, Anion Gap 15, BUN 20 H, Creatinine 0.77, Estim Creat Clear Calc 52.49, Est GFR (MDRD) Non-Af 78, BUN/Creatinine Ratio 25.9 H, Glucose 112 H, Calcium 8.3, Troponin T High Sens 20 H, NT pro BNP II 1481 06/22/25 15:36: Urine Color DARK YELLOW, Urine Clarity Cloudy, Urine pH 6.0, Ur Specific [place] 1.025, Urine Protein 100 H, Urine Glucose (UA) Normal, Urine Ketones 5 H, Urine Occult Blood 250 H, Urine Nitrite Negative, Urine Bilirubin Negative, Urine Urobilinogen 1 H, Ur Leukocyte Esterase 25 H, Urine RBC 25-50 SEEN, Urine WBC 5-10 SEEN, Ur Squamous Epith Cells 0 SEEN, Urine Bacteria 1+, Hyaline Casts 0 SEEN, Urine Mucus 1+ 06/22/25 16:51: Troponin T Hi Sens 2 Hr 22 H 06/23/25 04:15: WBC 17.6 H, RBC 3.73 L, Hgb 11.7 L, Hct 34.6 L, MCV 92.8, MCH 31.4, MCHC 33.8, RDW Std Deviation 47.5 H, RDW Coeff of Hilda 13.9, Plt Count 374, MPV 9.7, Immature Gran % (Auto) 0.900, Neut % (Auto) 88.9 H, Lymph % (Auto) 4.9 L, [place] % (Auto) 4.9, Eos % (Auto) 0.2, Baso % (Auto) 0.2, Absolute Neuts (auto) 15.6 H, Absolute Lymphs (auto) 0.87, Nucleated RBC % 0 Micro: Microbiology 06/22/25 18:40 Mucosa - Nose Respiratory Panel (PCR) - Final 06/22/25 15:36 Mucosa - Nose SARS-CoV-2, Influenza & RSV (PCR) - Final ABG Data ABG results: ABG 06/22/25 23:18 Specimen Type ART Sample Site L Radial pH 7.41 Bicarbonate Actual 24.6 Total CO2 26 Base Excess 0 O2 Saturation 99 H O2 % 95.0 ABG pCO2 38.7 ABG pO2 115 H Herve Test N/A O2 Delivery Device CPAP Vent Mode Not entered Imaging Radiology Impression Chest X-Ray 06/22/25 14:45 IMPRESSION: Cardiomegaly and CHF. Reading Location: [facility] Abdomen/Pelvis CT 06/22/25 17:53 IMPRESSION: Left renal pelvis 13 mm nonobstructive calculus with mild left hydronephrosis. Additional punctate bilateral nonobstructive renal calculi. Calcific densities within the pelvis not definitively traceable to the ureter-CT urography recommended to exclude ureteral calculus. Intra and extrahepatic biliary ductal dilation status post cholecystectomy, likely post-surgical. Colonic diverticulosis without evidence of acute diverticulitis. Patchy consolidative and ground-glass opacities at the lung bases, nonspecific-may represent atelectasis or infection. Reading Location: [facility] Chest CTA 06/22/25 21:04 IMPRESSION: 1. No pulmonary arterial emboli identified. 2. Extensive bilateral multifocal pneumonia. Presumed reactive mediastinal and hilar adenopathy. 3. Probable component of pulmonary edema, with trace bibasilar pleural effusions. 4. Redemonstrated subacute comminuted impacted fracture of the left humeral head/surgical neck. 5. Partially imaged stone in the left renal pelvis; see separate abdominal CT report. Reading Location: [id number] Charges/Coding Visit Charges Inpatient E&M: 89644 Init Hosp L3
--- NOTE | 2025-06-23 07:28 | PCM.PN.HOSP ---
Reason for Visit Chief Complaint: Shortness of breath, urinary frequency Objective Data Objective Data Vital Signs: Vital Signs Temp Pulse Resp BP Pulse Ox O2 Del Method O2 Flow Rate 97.1 F L 68 20 H 120/72 94 Airvo 75 06/22/25 20:00 06/23/25 07:00 06/23/25 07:00 06/23/25 07:00 06/23/25 07:00 06/23/25 07:00 06/23/25 07:00 FiO2 75 06/23/25 06:35 Oxygen Flow Rate (L/min) 75 Oxygen Delivery Method Airvo Weight: 136 lb 3.931 oz Body Mass Index (BMI) 21.3 Intake & Output: Intake and Output for Last 24 Hours 06/21/25 06/22/25 06/23/25 23:59 23:59 23:59 Intake Total 510 / 1010 1150 / 1150 Balance 510 / 1010 1150 / 1150 Lab / Micro Data 06/23/25 04:15 06/22/25 14:41 Labs: Laboratory Results - last 24 hr 06/22/25 14:41: WBC 22.7 H, RBC 4.20, Hgb 13.2, Hct 39.1, MCV 93.1, MCH 31.4, MCHC 33.8, RDW Std Deviation 47.2 H, RDW Coeff of Hilda 13.9, Plt Count 447, MPV 9.8, Immature Gran % (Auto) 3.400 H, Neut % (Auto) 85.9 H, Lymph % (Auto) 3.9 L, [place] % (Auto) 6.6, Eos % (Auto) 0.0, Baso % (Auto) 0.2, Absolute Neuts (auto) 19.4 H, Absolute Lymphs (auto) 0.89, Nucleated RBC % 0, D-Dimer Quant (PE/DVT) 0.68 H*, Sodium 129 L, Potassium 4.1, Chloride 93 L, Carbon Dioxide 20.4 L, Anion Gap 15, BUN 20 H, Creatinine 0.77, Estim Creat Clear Calc 52.49, Est GFR (MDRD) Non-Af 78, BUN/Creatinine Ratio 25.9 H, Glucose 112 H, Calcium 8.3, Troponin T High Sens 20 H, NT pro BNP II 1481 06/22/25 15:36: Urine Color DARK YELLOW, Urine Clarity Cloudy, Urine pH 6.0, Ur Specific [place] 1.025, Urine Protein 100 H, Urine Glucose (UA) Normal, Urine Ketones 5 H, Urine Occult Blood 250 H, Urine Nitrite Negative, Urine Bilirubin Negative, Urine Urobilinogen 1 H, Ur Leukocyte Esterase 25 H, Urine RBC 25-50 SEEN, Urine WBC 5-10 SEEN, Ur Squamous Epith Cells 0 SEEN, Urine Bacteria 1+, Hyaline Casts 0 SEEN, Urine Mucus 1+ 06/22/25 16:51: Troponin T Hi Sens 2 Hr 22 H 06/23/25 04:15: WBC 17.6 H, RBC 3.73 L, Hgb 11.7 L, Hct 34.6 L, MCV 92.8, MCH 31.4, MCHC 33.8, RDW Std Deviation 47.5 H, RDW Coeff of Hilda 13.9, Plt Count 374, MPV 9.7, Immature Gran % (Auto) 0.900, Neut % (Auto) 88.9 H, Lymph % (Auto) 4.9 L, [place] % (Auto) 4.9, Eos % (Auto) 0.2, Baso % (Auto) 0.2, Absolute Neuts (auto) 15.6 H, Absolute Lymphs (auto) 0.87, Nucleated RBC % 0 Micro: Microbiology 06/22/25 18:40 Mucosa - Nose Respiratory Panel (PCR) - Final 06/22/25 15:36 Mucosa - Nose SARS-CoV-2, Influenza & RSV (PCR) - Final ABG Data ABG results: ABG 06/22/25 23:18 Specimen Type ART Sample Site L Radial pH 7.41 Bicarbonate Actual 24.6 Total CO2 26 Base Excess 0 O2 Saturation 99 H O2 % 95.0 ABG pCO2 38.7 ABG pO2 115 H Herve Test N/A O2 Delivery Device CPAP Vent Mode Not entered Radiography Diagnostic Testing: Radiology Impression Chest X-Ray 06/22/25 14:45 IMPRESSION: Cardiomegaly and CHF. [facility]/Pelvis CT 06/22/25 17:53 IMPRESSION: Left renal pelvis 13 mm nonobstructive calculus with mild left hydronephrosis. Additional punctate bilateral nonobstructive renal calculi. Calcific densities within the pelvis not definitively traceable to the ureter-CT urography recommended to exclude ureteral calculus. Intra and extrahepatic biliary ductal dilation status post cholecystectomy, likely post-surgical. Colonic diverticulosis without evidence of acute diverticulitis. Patchy consolidative and ground-glass opacities at the lung bases, nonspecific-may represent atelectasis or infection. Reading Location: [id number] Chest CTA 06/22/25 21:04 IMPRESSION: 1. No pulmonary arterial emboli identified. 2. Extensive bilateral multifocal pneumonia. Presumed reactive mediastinal and hilar adenopathy. 3. Probable component of pulmonary edema, with trace bibasilar pleural effusions. 4. Redemonstrated subacute comminuted impacted fracture of the left humeral head/surgical neck. 5. Partially imaged stone in the left renal pelvis; see separate abdominal CT report. Reading Location: [id number] Physical Exam Narrative Seen and examined. Patient states she did not feel good for last 2 months but had symptoms of shortness of breath for about 2 weeks. She completed antibiotic about 5 days, Z-Jair; prior to admit. Denies chest pain but has mild cough and sometimes brings up phlegm. No fever. She said she also lost weight for last 2 months. Physical exam General: Alert, Oriented x3, Cooperative. BMI 21.3 kg/m?. HEENT: Hard of hearing. Atraumatic, PERRLA, EOMI, Normocephalic. Oral: No Gingival or Mucosal Lesions/ Ulcerations Neck: Supple, No JVD, Negative Carotid Bruits Chest wall/Lungs: Air entry diminished in bilateral lung bases. Bilateral diffuse coarse crepitations. On Airvo. Cardiovascular: Regular rate and rhythm, Normal S1,S2, No M/G/R Abdomen: Bowel Sounds Present, Soft, Non Tender, Non-Distended : No dysuria. Increased urgency but denies increased frequency. No renal angle tenderness. No suprapubic tenderness. Extremities: No edema, Capillary Refill Less than 3 Seconds Skin: No rashes, No breakdown Musculoskeletal: No Tenderness to Palpation of Joints or Extremities Neurological: Cranial nerves II-XII grossly intact, DTR 2+/4. No acute focal neurological deficit. Psych/Mental Status: Flat affect Assessment & Plan Assessment/Plan (1) Pneumonia: PLAN: Plan This 80-year-old female was admitted with worsening shortness of breath for 2 weeks. She also had increased urinary urgency and some blood in the urine. Denies dysuria. 1. Acute hypoxic respiratory failure due to extensive bilateral multifocal Pneumonia: The patient is being admitted in ICU. Currently on the Airvo. Was found 60% on room air in ER and does not use home oxygen. Patient admitted with leukocytosis 22.7 K with immature granulocytes 3.4%, predominantly neutrophil 86%, lymphopenia 3.9%. Leukocytosis improving. Respiratory panel negative. Triple PCR for SARS-CoV-2, flu and RSV are negative. Initially started on levofloxacin but antibiotic broadened to include vancomycin and Zosyn. Chest CTA shows extensive bilateral multifocal pneumonia and presumed reactive mediastinal and hilar lymphadenopathy. Some component of pulmonary edema and trace bilateral pleural effusion 2. Multifocal bilateral community-acquired pneumonia: Patient denies history of chronic lung disease. Denies history of smoking. She also states she does not have history of CHF probably mild pulmonary edema is reactive to diffuse bilateral pneumonia. 3. Paroxysmal atrial fibrillation-: On the monitor patient is sinus rhythm. Eliquis 5 mg p.o. twice daily continued 4. Left renal pelvis nonobstructive calculus with mild left hydronephrosis: Patient did not know about the kidney stone prior to admission. Obviously did not pass the stone or had urologic procedure related to it. CT abdomen shows a left renal pelvis 30 mm nonobstructive calculus with mild left hydronephrosis. Additional punctate bilateral nonobstructing renal calculi. Denies abdominal pain. No renal/flank tenderness on exam. Will monitor. C. DVT prophylaxis: On Eliquis. CODE STATUS full code confirmed. Microbiology Past 72 Hours 06/22/25 18:40 Mucosa - Nose Respiratory Panel (PCR) - Final 06/22/25 15:36 Mucosa - Nose SARS-CoV-2, Influenza & RSV (PCR) - Final Laboratory Results 06/22/25 14:41: WBC 22.7 H, RBC 4.20, Hgb 13.2, Hct 39.1, MCV 93.1, MCH 31.4, MCHC 33.8, RDW Std Deviation 47.2 H, RDW Coeff of Hilda 13.9, Plt Count 447, MPV 9.8, Immature Gran % (Auto) 3.400 H, Neut % (Auto) 85.9 H, Lymph % (Auto) 3.9 L, [place] % (Auto) 6.6, Eos % (Auto) 0.0, Baso % (Auto) 0.2, Absolute Neuts (auto) 19.4 H, Absolute Lymphs (auto) 0.89, Nucleated RBC % 0, D-Dimer Quant (PE/DVT) 0.68 H*, Sodium 129 L, Potassium 4.1, Chloride 93 L, Carbon Dioxide 20.4 L, Anion Gap 15, BUN 20 H, Creatinine 0.77, Estim Creat Clear Calc 52.49, Est GFR (MDRD) Non-Af 78, BUN/Creatinine Ratio 25.9 H, Glucose 112 H, Calcium 8.3, Troponin T High Sens 20 H, NT pro BNP II 1481 06/22/25 15:36: Urine Color DARK YELLOW, Urine Clarity Cloudy, Urine pH 6.0, Ur Specific [place] 1.025, Urine Protein 100 H, Urine Glucose (UA) Normal, Urine Ketones 5 H, Urine Occult Blood 250 H, Urine Nitrite Negative, Urine Bilirubin Negative, Urine Urobilinogen 1 H, Ur Leukocyte Esterase 25 H, Urine RBC 25-50 SEEN, Urine WBC 5-10 SEEN, Ur Squamous Epith Cells 0 SEEN, Urine Bacteria 1+, Hyaline Casts 0 SEEN, Urine Mucus 1+ 06/22/25 16:51: Troponin T Hi Sens 2 Hr 22 H 06/22/25 23:18: Specimen Type ART, Sample Site L Radial, pH 7.41, Bicarbonate Actual 24.6, Total CO2 26, Base Excess 0, O2 Saturation 99 H, O2 % 95.0, ABG pCO2 38.7, ABG pO2 115 H, Herve Test N/A, O2 Delivery Device CPAP, Vent Mode Not entered 06/23/25 04:15: WBC 17.6 H, RBC 3.73 L, Hgb 11.7 L, Hct 34.6 L, MCV 92.8, MCH 31.4, MCHC 33.8, RDW Std Deviation 47.5 H, RDW Coeff of Hilda 13.9, Plt Count 374, MPV 9.7, Immature Gran % (Auto) 0.900, Neut % (Auto) 88.9 H, Lymph % (Auto) 4.9 L, [place] % (Auto) 4.9, Eos % (Auto) 0.2, Baso % (Auto) 0.2, Absolute Neuts (auto) 15.6 H, Absolute Lymphs (auto) 0.87, Nucleated RBC % 0 Clinical Impression(s) from Imaging Studies Chest X-Ray 06/22/25 14:45 IMPRESSION: Cardiomegaly and CHF. Reading Location: [facility]1 Abdomen/Pelvis CT 06/22/25 17:53 IMPRESSION: Left renal pelvis 13 mm nonobstructive calculus with mild left hydronephrosis. Additional punctate bilateral nonobstructive renal calculi. Calcific densities within the pelvis not definitively traceable to the ureter-CT urography recommended to exclude ureteral calculus. Intra and extrahepatic biliary ductal dilation status post cholecystectomy, likely post-surgical. Colonic diverticulosis without evidence of acute diverticulitis. Patchy consolidative and ground-glass opacities at the lung bases, nonspecific-may represent atelectasis or infection. Chest CTA 06/22/25 21:04 IMPRESSION: 1. No pulmonary arterial emboli identified. 2. Extensive bilateral multifocal pneumonia. Presumed reactive mediastinal and hilar adenopathy. 3. Probable component of pulmonary edema, with trace bibasilar pleural effusions. 4. Redemonstrated subacute comminuted impacted fracture of the left humeral head/surgical neck. 5. Partially imaged stone in the left renal pelvis; see separate abdominal CT report. Reading Location: [facility] Charges/Coding Addendum Addendum: Total time of the visit including total time spent in counseling or coordination of care, (more than 50% of the total time, spent in obtaining medical information from nurses and other ancillary care providers ,explaining to the patient about labs, imaging, diagnosis and management of active complex medical conditions), barrel drum cutter consultation, review of labs and imaging is 40 minutes. Visit Charges Inpatient E&M: 01048 [facility] Hosp L3
[2025-06-23] MEDS: 0.9% Normal Saline (1000mL) 1,000 ML 75 ML IV ×2 (08:08→21:04)
[2025-06-23] MEDS: Vancomycin HCl 1,500 MG in 0.9% Normal Saline (500mL Bag) 500 ML 250 MG IV (08:08)
[2025-06-23] MEDS: Piperacil/Tazobactam 3.375 GM in 0.9% Normal Saline (50mL MB+) 50 ML IV ×3 (08:32→21:38)
--- NOTE | 2025-06-23 08:42 | PCM.RX.CS ---
Consult Antibiotic Management Pharmacy has been consulted to manage selected antibiotic: Vancomycin Type of Intervention Type of Consult: New start Suspected Infection Suspected Infection: Pneumonia Prior Doses of Antibiotics Prior Doses of Antibiotics Received/Current Regimen: Vancomycin 1500 mg IV x 1 given 06/23/25 @ 0808 Labs Labs: Sodium 129 mmol/L (133-145) L 06/22/25 14:41 Potassium 4.1 mmol/L (3.3-5.1) 06/22/25 14:41 Chloride 93 mmol/L (98-108) L 06/22/25 14:41 Carbon Dioxide 20.4 mmol/L (21.0-32.0) L 06/22/25 14:41 Anion Gap 15 (5-15) 06/22/25 14:41 BUN 20 mg/dL (4-19) H 06/22/25 14:41 Creatinine 0.77 mg/dL (0.70-1.20) 06/22/25 14:41 Est GFR (MDRD) Non-Af 78 (>60) 06/22/25 14:41 BUN/Creatinine Ratio 25.9 RATIO (10-20) H 06/22/25 14:41 Glucose 112 mg/dL (70-99) H 06/22/25 14:41 Microbiology Microbiology: Microbiology 06/22/25 18:40 Mucosa - Nose Respiratory Panel (PCR) - Final 06/22/25 15:36 Mucosa - Nose SARS-CoV-2, Influenza & RSV (PCR) - Final Dosing Weight Weight used for dosin kg Estimated Creatinine Clearance Estimated Creatinine Clearance: ~ 52 Goal Trough Goal Trough: 15-20 mcg/mL Pharmacy Plan for Drug Dosing Pharmacy Plan for Drug Dosing: Vancomycin 1500 mg IV x 1 followed by 500 mg q12h Pharmacy Service will continue to monitor and adjust dosing as required. Follow-Up Labs Follow-Up Labs: Trough: Vancomycin Date/Time Labs Ordered Labs to be done on [date and time ordered]: 06/24/25 @ 4323
[2025-06-23 09:33] LABS: Anion Gap 11 (5-15); BUN 18 mg/dL (4-19); BUN/Creat Ratio 23.6 RATIO (10-20); Calcium,Total 8.2 mg/dL (7.6-11.0); Carbon Dioxide 23.4 mmol/L (21.0-32.0); Chloride 99 mmol/L (98-108); Estimated Creatinine Clearance 54.54 ml/min (50-250); Glucose 102 mg/dL (70-99); Potassium 4.1 mmol/L (3.3-5.1); Pro- Brain NATRIURETIC PEPTIDE 1033 pg/mL (<=1800); Procalcitonin 0.41 ng/mL (<=0.10)
[2025-06-23] MEDS: APIXABAN 5 MG TABLET PO ×2 (10:14→21:39)
--- NOTE | 2025-06-23 15:22 | DS.PCM_ITS ---
Providers Date of Admission: 06/22/25 Date of Discharge: 06/23/25 Primary Care Physician: Dr. Wilson Brizuela, DO Consultations 06/22/25 17:59 Consult: City Attorney / Pulmonary Medicine Routine Consulting Provider: Intensivists/Pulmonary Med Reason for Consult: Respiratory failure EMERGENT Consult: No MD Notified: No Date Notified: 06/22/25 Time Notified: 16:53 Reason For Visit: ACUTE HYPOXIC RESPIRATORY FAILURE, PNEUMONIA Diagnosis Discharge Diagnosis (1) Pneumonia: Status: Acute Code(s): J18.9 - Pneumonia, unspecified organism (2) Respiratory failure: Status: Acute Code(s): J96.90 - Respiratory failure, unspecified, unspecified whether with hypoxia or hypercapnia Plan This 80-year-old female was admitted with worsening shortness of breath for 2 weeks. She also had increased urinary urgency and some blood in the urine. Denies dysuria. 1. Acute hypoxic respiratory failure due to extensive bilateral multifocal Pneumonia: The patient is being admitted in ICU. Currently on the Airvo. Was found 60% on room air in ER and does not use home oxygen. Patient admitted with leukocytosis 22.7 K with immature granulocytes 3.4%, predominantly neutrophil 86%, lymphopenia 3.9%. Leukocytosis improving. Respiratory panel negative. Triple PCR for SARS-CoV-2, flu and RSV are negative. Initially started on levofloxacin but antibiotic broadened to include vancomycin and Zosyn. Chest CTA shows extensive bilateral multifocal pneumonia and presumed reactive mediastinal and hilar lymphadenopathy. Some component of pulmonary edema and trace bilateral pleural effusion Urinary retention: Patient had bladder scan which shows more than 900 mL urine. Initially straight catheter was ordered but hospice service want High catheter for palliation/symptom relief. High catheter ordered. Patient has been discharged to inpatient hospice unit for symptom relief/hospice care 2. Multifocal bilateral community-acquired pneumonia: Patient denies history of chronic lung disease. Denies history of smoking. She also states she does not have history of CHF probably mild pulmonary edema is reactive to diffuse bilateral pneumonia. 3. Paroxysmal atrial fibrillation-: On the monitor patient is sinus rhythm. Eliquis 5 mg p.o. twice daily continued 4. Left renal pelvis nonobstructive calculus with mild left hydronephrosis: Patient did not know about the kidney stone prior to admission. Obviously did not pass the stone or had urologic procedure related to it. CT abdomen shows a left renal pelvis 30 mm nonobstructive calculus with mild left hydronephrosis. Additional punctate bilateral nonobstructing renal calculi. Denies abdominal pain. No renal/flank tenderness on exam. Will monitor. C. DVT prophylaxis: On Eliquis. CODE STATUS full code confirmed. Microbiology Past 72 Hours 06/22/25 18:40 Mucosa - Nose Respiratory Panel (PCR) - Final 06/22/25 15:36 Mucosa - Nose SARS-CoV-2, Influenza & RSV (PCR) - Final Laboratory Results 06/22/25 14:41: WBC 22.7 H, RBC 4.20, Hgb 13.2, Hct 39.1, MCV 93.1, MCH 31.4, MCHC 33.8, RDW Std Deviation 47.2 H, RDW Coeff of Hilda 13.9, Plt Count 447, MPV 9.8, Immature Gran % (Auto) 3.400 H, Neut % (Auto) 85.9 H, Lymph % (Auto) 3.9 L, [place] % (Auto) 6.6, Eos % (Auto) 0.0, Baso % (Auto) 0.2, Absolute Neuts (auto) 19.4 H, Absolute Lymphs (auto) 0.89, Nucleated RBC % 0, D-Dimer Quant (PE/DVT) 0.68 H*, Sodium 129 L, Potassium 4.1, Chloride 93 L, Carbon Dioxide 20.4 L, Anion Gap 15, BUN 20 H, Creatinine 0.77, Estim Creat Clear Calc 52.49, Est GFR (MDRD) Non-Af 78, BUN/Creatinine Ratio 25.9 H, Glucose 112 H, Calcium 8.3, T roponin T High Sens 20 H, NT pro BNP II 1481 06/22/25 15:36: Urine Color DARK YELLOW, Urine Clarity Cloudy, Urine pH 6.0, Ur Specific [place] 1.025, Urine Protein 100 H, Urine Glucose (UA) Normal, Urine Ketones 5 H, Urine Occult Blood 250 H, Urine Nitrite Negative, Urine Bilirubin Negative, Urine Urobilinogen 1 H, Ur Leukocyte Esterase 25 H, Urine RBC 25-50 SEEN, Urine WBC 5-10 SEEN, Ur Squamous Epith Cells 0 SEEN, Urine Bacteria 1+, Hyaline Casts 0 SEEN, Urine Mucus 1+ 06/22/25 16:51: Troponin T Hi Sens 2 Hr 22 H 06/22/25 23:18: Specimen Type ART, Sample Site L Radial, pH 7.41, Bicarbonate Actual 24.6, Total CO2 26, Base Excess 0, O2 Saturation 99 H, O2 % 95.0, ABG pCO2 38.7, ABG pO2 115 H, Herve Test N/A, O2 Delivery Device CPAP, Vent Mode Not entered 06/23/25 04:15: WBC 17.6 H, RBC 3.73 L, Hgb 11.7 L, Hct 34.6 L, MCV 92.8, MCH 31.4, MCHC 33.8, RDW Std Deviation 47.5 H, RDW Coeff of Hilda 13.9, Plt Count 374, MPV 9.7, Immature Gran % (Auto) 0.900, Neut % (Auto) 88.9 H, Lymph % (Auto) 4.9 L, [place] % (Auto) 4.9, Eos % (Auto) 0.2, Baso % (Auto) 0.2, Absolute Neuts (auto) 15.6 H, Absolute Lymphs (auto) 0.87, Nucleated RBC % 0 Clinical Impression(s) from Imaging Studies Chest X-Ray 06/22/25 14:45 IMPRESSION: Cardiomegaly and CHF. Reading Location: [id number] Abdomen/Pelvis CT 06/22/25 17:53 IMPRESSION: Left renal pelvis 13 mm nonobstructive calculus with mild left hydronephrosis. Additional punctate bilateral nonobstructive renal calculi. Calcific densities within the pelvis not definitively traceable to the ureter-CT urography recommended to exclude ureteral calculus. Intra and extrahepatic biliary ductal dilation status post cholecystectomy, likely post-surgical. Colonic diverticulosis without evidence of acute diverticulitis. Patchy consolidative and ground-glass opacities at the lung bases, nonspecific- may represent atelectasis or infection. Chest CTA 06/22/25 21:04 IMPRESSION: 1. No pulmonary arterial emboli identified. 2. Extensive bilateral multifocal pneumonia. Presumed reactive mediastinal and hilar adenopathy. 3. Probable component of pulmonary edema, with trace bibasilar pleural effusions. 4. Redemonstrated subacute comminuted impacted fracture of the left humeral head/surgical neck. 5. Partially imaged stone in the left renal pelvis; see separate abdominal CT report. Reading Location: [id number] Medications at Discharge Home Medications apixaban 5 mg tablet (Eliquis) 5 mg PO BID #180 tabs 09/02/24 zolpidem 12.5 mg tablet,extended release,multiphase 12.5 mg PO QDAY PRN insomnia 03/03/25 oxycodone 5 mg tablet 5 mg PO Q6H PRN pain 5 days #20 tabs 04/09/25 amiodarone 200 mg tablet 200 mg PO DAILY #90 tabs 06/01/25 trazodone 50 mg tablet 50 - 100 mg PO QHS 06/22/25 Physical Exam Narrative Please see exam finding on the progress note Weight / BMI Weight Weight: 136 lb 3.931 oz Body Mass Index (BMI) 21.3 ABG / Lab / Microbiology Data 06/23/25 04:15 06/23/25 08:35 Laboratory: Laboratory Results - last 24 hr 06/22/25 14:41: D-Dimer Quant (PE/DVT) 0.68 H*, Sodium 129 L, Potassium 4.1, C hloride 93 L, Carbon Dioxide 20.4 L, Anion Gap 15, BUN 20 H, Creatinine 0.77, Estim Creat Clear Calc 52.49, Est GFR (MDRD) Non-Af 78, BUN/Creatinine Ratio 25.9 H, Glucose 112 H, Calcium 8.3, Troponin T High Sens 20 H, NT pro BNP II 1481 06/22/25 15:36: Urine Color DARK YELLOW, Urine Clarity Cloudy, Urine pH 6.0, Ur Specific [place] 1.025, Urine Protein 100 H, Urine Glucose (UA) Normal, Urine Ketones 5 H, Urine Occult Blood 250 H, Urine Nitrite Negative, Urine Bilirubin Negative, Urine Urobilinogen 1 H, Ur Leukocyte Esterase 25 H, Urine RBC 25-50 SEEN, Urine WBC 5-10 SEEN, Ur Squamous Epith Cells 0 SEEN, Urine Bacteria 1+, Hyaline Casts 0 SEEN, Urine Mucus 1+ 06/22/25 16:51: Troponin T Hi Sens 2 Hr 22 H 06/23/25 04:15: WBC 17.6 H, RBC 3.73 L, Hgb 11.7 L, Hct 34.6 L, MCV 92.8, MCH 31.4, MCHC 33.8, RDW Std Deviation 47.5 H, RDW Coeff of Hilda 13.9, Plt Count 374, MPV 9.7, Immature Gran % (Auto) 0.900, Neut % (Auto) 88.9 H, Lymph % (Auto) 4.9 L, [place] % (Auto) 4.9, Eos % (Auto) 0.2, Baso % (Auto) 0.2, Absolute Neuts (auto) 15.6 H, Absolute Lymphs (auto) 0.87, Nucleated RBC % 0 06/23/25 08:35: Sodium 133, Potassium 4.1, Chloride 99, Carbon Dioxide 23.4, Anion Gap 11, BUN 18, Creatinine 0.74, Estim Creat Clear Calc 54.54, Est GFR (MDRD) Non-Af 81, BUN/Creatinine Ratio 23.6 H, Glucose 102 H, Calcium 8.2, NT pro BNP II 1033, Procalcitonin 0.41 H Microbiology: Microbiology 06/23/25 12:15 Sputum, Expectorated/Coughed Gram Stain - Final 06/22/25 14:41 Blood Culture (Wb) - Anticubital Right Blood Culture - Preliminary 06/23/25 10:13 Nasal Secretion MRSA (PCR) - Final 06/23/25 08:43 Urine Catheter - Catheter Legionella Antigen - Final 06/23/25 08:43 Urine Catheter - Catheter Streptococcus pneumoniae Antigen (M - Final 06/22/25 18:40 Mucosa - Nose Respiratory Panel (PCR) - Final 06/22/25 15:36 Mucosa - Nose SARS-CoV-2, Influenza & RSV (PCR) - Final ABG: ABG 06/22/25 23:18 Specimen Type ART Sample Site L Radial pH 7.41 Bicarbonate Actual 24.6 Total CO2 26 Base Excess 0 O2 Saturation 99 H O2 % 95.0 ABG pCO2 38.7 ABG pO2 115 H Herve Test N/A O2 Delivery Device CPAP Vent Mode Not entered Radiography Diagnostic Testing: Radiology Impression Abdomen/Pelvis CT 06/22/25 17:53 IMPRESSION: Left renal pelvis 13 mm nonobstructive calculus with mild left hydronephrosis. Additional punctate bilateral nonobstructive renal calculi. Calcific densities within the pelvis not definitively traceable to the ureter-CT urography recommended to exclude ureteral calculus. Intra and extrahepatic biliary ductal dilation status post cholecystectomy, likely post-surgical. Colonic diverticulosis without evidence of acute diverticulitis. Patchy consolidative and ground-glass opacities at the lung bases, nonspecific- may represent atelectasis or infection. Reading Location: [id number] Chest CTA 06/22/25 21:04 IMPRESSION: 1. No pulmonary arterial emboli identified. 2. Extensive bilateral multifocal pneumonia. Presumed reactive mediastinal and hilar adenopathy. 3. Probable component of pulmonary edema, with trace bibasilar pleural effusions. 4. Redemonstrated subacute comminuted impacted fracture of the left humeral head/surgical neck. 5. Partially imaged stone in the left renal pelvis; see separate abdominal CT report. Reading Location: [id number] D/C Instructions DC O2, CPAP, BIPAP Needs Home O2 Discharge instructions: No Meaningful Use Info Meaningful Use Meaningful Use Diagnoses (Choose all that apply): None applicable Discharge Plan Admission Admit Date/Time: 06/22/25 16:21 Attending Provider: Javon Pearl Primary Care Provider: Wilson Brizuela Consulting Providers: Wilson Valero Discharge Orders/Prescriptions Prescriptions: No Action Eliquis 5 mg tablet 5 mg PO BID Qty: 180 3RF zolpidem 12.5 mg tablet,ext release multiphase 12.5 mg PO QDAY PRN (Reason: insomnia) oxycodone 5 mg tablet 5 mg PO Q6H PRN (Reason: pain) 5 Days Qty: 20 0RF trazodone 50 mg tablet 50 - 100 mg PO QHS amiodarone 200 mg tablet 200 mg PO DAILY Qty: 90 3RF Referrals / Follow Up: Wilson Brizuela DO [Primary Care Provider, Family Practice] Disposition Disposition (needs filled in before D/C Order can be placed): Hospice in Medical Facility
--- NOTE | 2025-06-23 21:06 | CPS ---
decreased to 50L and 60%- pt complaining of too much air blowing
--- NOTE | 2025-06-23 23:17 | CPS ---
increased fio2 to 70% due to low sat
[2025-06-23] MEDS: 0.9% Saline Lock 10 ML Syringe IV (23:48)
[2025-06-24] VITALS (32 sets, daily range): BP systolic 100–148; BP diastolic 50–94; PULSE 55–94; RESP 11–30; TEMP 36.2–36.6; O2SAT 87–100; BMI 21.4
--- NOTE | 2025-06-24 01:26 | CPS ---
increased flow on airvo to 60L and 75% due to low sats
[2025-06-24 04:52] LABS: Hematocrit 37.0 % (37-47); Hemoglobin 12.2 g/dL (12.0-15.0); Immature Granulocytes Count 0.150 X10^3/uL (0.0-0.0); Mean Corp Hgb Conc 33.0 g/dL (32-36); Mean Corpuscular Volume 93.4 fL (81-99); Mean Platelet Vol. 9.3 fl (6.2-12.0); NRBC Flagged by Analyzer 0 % (0-5); Platelet Count 416 K/mm3 (150-450); RBC Distribution Width CV 13.9 % (11.6-14.6); RBC Distribution Width SD 47.8 fl (35.1-43.9); Red Blood Count 3.96 M/mm3 (4.2-5.4); White Blood Count 15.8 K/mm3 (4.4-11.0)
[2025-06-24] MEDS: Piperacil/Tazobactam 3.375 GM in 0.9% Normal Saline (50mL MB+) 50 ML IV ×3 (05:42→20:56)
[2025-06-24 06:53] LABS: AST(SGOT) 33 U/L (<=31); Alanine Aminotransfer ALT/SGPT 16 U/L (<=34); Albumin, Serum 2.8 g/dL (3.4-4.8); Alkaline Phosphatase 150 U/L (35-104); Anion Gap 12 (5-15); BUN 17 mg/dL (4-19); BUN/Creat Ratio 30.1 RATIO (10-20); Calcium,Total 8.0 mg/dL (7.6-11.0); Carbon Dioxide 21.0 mmol/L (21.0-32.0); Chloride 105 mmol/L (98-108); Estimated Creatinine Clearance 54.54 ml/min (50-250); Globulin 3.3 g/dL (2.2-4.2); Glucose 119 mg/dL (70-99); Potassium 4.0 mmol/L (3.3-5.1)
[2025-06-24] MEDS: APIXABAN 5 MG TABLET PO ×2 (08:01→20:57)
--- NOTE | 2025-06-24 08:12 | PCM.PN.HOSP ---
Reason for Visit Chief Complaint: Shortness of breath, urinary frequency Objective Data Objective Data Vital Signs: Vital Signs Temp Pulse Resp BP Pulse Ox O2 Del Method O2 Flow Rate 97.6 F L 58 L 25 H 109/56 L 91 Airvo 60 06/24/25 06:00 06/24/25 07:00 06/24/25 07:00 06/24/25 07:00 06/24/25 07:00 06/24/25 07:00 06/24/25 06:00 FiO2 80 06/24/25 06:55 Oxygen Flow Rate (L/min) 60 Oxygen Delivery Method Airvo Weight: 136 lb 14.513 oz Body Mass Index (BMI) 21.4 Intake & Output: Intake and Output for Last 24 Hours 06/22/25 06/23/25 06/24/25 23:59 23:59 23:59 Intake Total 510 / 1010 3567.5 / 3807.5 490 / 490 Balance 510 / 1010 3567.5 / 3807.5 490 / 490 Lab / Micro Data 06/24/25 04:44 06/24/25 04:44 Labs: Laboratory Results - last 24 hr 06/23/25 08:35: Sodium 133, Potassium 4.1, Chloride 99, Carbon Dioxide 23.4, Anion Gap 11, BUN 18, Creatinine 0.74, Estim Creat Clear Calc 54.54, Est GFR (MDRD) Non-Af 81, BUN/Creatinine Ratio 23.6 H, Glucose 102 H, Calcium 8.2, NT pro BNP II 1033, Procalcitonin 0.41 H 06/24/25 04:44: WBC 15.8 H, RBC 3.96 L, Hgb 12.2, Hct 37.0, MCV 93.4, MCH 30.8, MCHC 33.0, RDW Std Deviation 47.8 H, RDW Coeff of Hilda 13.9, Plt Count 416, MPV 9.3, Immature Gran % (Auto) 1.000 H, Neut % (Auto) 91.9 H, Lymph % (Auto) 4.2 L, [place] % (Auto) 2.7, Eos % (Auto) 0.0, Baso % (Auto) 0.2, Absolute Neuts (auto) 14.5 H, Absolute Lymphs (auto) 0.66 L, Nucleated RBC % 0, Sodium 138, Potassium 4.0, Chloride 105, Carbon Dioxide 21.0, Anion Gap 12, BUN 17, Creatinine 0.55 L, Estim Creat Clear Calc 54.54, Est GFR (MDRD) Non-Af 93, BUN/Creatinine Ratio 30.1 H, Glucose 119 H, Calcium 8.0, Total Bilirubin 0.97, AST 33 H, ALT 16, Alkaline Phosphatase 150 H, Total Protein 6.0, Albumin 2.8 L, Globulin 3.3, Albumin/Globulin Ratio 0.9 Micro: Microbiology 06/23/25 12:15 Sputum, Expectorated/Coughed Gram Stain - Final 06/22/25 14:41 Blood Culture (Wb) - Anticubital Right Blood Culture - Preliminary 06/23/25 10:13 Nasal Secretion MRSA (PCR) - Final 06/23/25 08:43 Urine Catheter - Catheter Legionella Antigen - Final 06/23/25 08:43 Urine Catheter - Catheter Streptococcus pneumoniae Antigen (M - Final 06/22/25 18:40 Mucosa - Nose Respiratory Panel (PCR) - Final 06/22/25 15:36 Mucosa - Nose SARS-CoV-2, Influenza & RSV (PCR) - Final Physical Exam Narrative Seen and examined. No fever. Sinus bradycardia on the monitoring specialist. Blood pressure acceptable limit. Mild tachypnea. On Airvo, Fio2 80%, 60 L/m Physical exam General: Alert, Oriented x3, Cooperative. BMI 21.3 kg/m?. HEENT: Hard of hearing. Atraumatic, PERRLA, EOMI, Normocephalic. Oral: No Gingival or Mucosal Lesions/ Ulcerations Neck: Supple, No JVD, Negative Carotid Bruits Chest wall/Lungs: Air entry diminished in bilateral lung bases. Coarse crepitation better than yesterday on Airvo. Cardiovascular: Regular rate and rhythm, Normal S1,S2, No M/G/R Abdomen: Bowel Sounds Present, Soft, Non Tender, Non-Distended : No dysuria. Increased urgency but denies increased frequency. No renal angle tenderness. No suprapubic tenderness. Extremities: No edema, Capillary Refill Less than 3 Seconds Skin: No rashes, No breakdown Musculoskeletal: No Tenderness to Palpation of Joints or Extremities Neurological: Cranial nerves II-XII grossly intact, DTR 2+/4. No acute focal neurological deficit. Psych/Mental Status: Flat affect Assessment & Plan Assessment/Plan (1) Pneumonia: (2) Respiratory failure: PLAN: Plan This 80-year-old female was admitted with worsening shortness of breath for 2 weeks. She also had increased urinary urgency and some blood in the urine. Denies dysuria.Patient states she did not feel good for last 2 months She completed antibiotic about 5 days, Z-Jair; prior to admit. Denies chest pain but has mild cough and sometimes brings up phlegm. No fever. She said she also lost weight for last 2 months. 1. Acute hypoxic respiratory failure due to extensive bilateral multifocal Pneumonia: The patient is being admitted in ICU. Currently on the Airvo. Was found 60% on room air in ER and does not use home oxygen. Patient admitted with leukocytosis 22.7 K with immature granulocytes 3.4%, predominantly neutrophil 86%, lymphopenia 3.9%. Leukocytosis improving. Respiratory panel negative. Triple PCR for SARS-CoV-2, flu and RSV are negative. Initially started on levofloxacin but antibiotic broadened to include vancomycin and Zosyn. Chest CTA shows extensive bilateral multifocal pneumonia and presumed reactive mediastinal and hilar lymphadenopathy. Some component of pulmonary edema and trace bilateral pleural effusion 06/24: Still on Airvo. ABG near normal with pCO2 38.7. Pulmonary review whether needs to change NIPPV 2. Multifocal bilateral community-acquired pneumonia: Patient denies history of chronic lung disease. Denies history of smoking. She also states she does not have history of CHF probably mild pulmonary edema is reactive to diffuse bilateral pneumonia. 06/24 on broad-spectrum IV antibiotic. 3. Paroxysmal atrial fibrillation-: On the monitor patient is sinus rhythm. Eliquis 5 mg p.o. twice daily continued 4. Left renal pelvis nonobstructive calculus with mild left hydronephrosis: Patient did not know about the kidney stone prior to admission. Obviously did not pass the stone or had urologic procedure related to it. CT abdomen shows a left renal pelvis 30 mm nonobstructive calculus with mild left hydronephrosis. Additional punctate bilateral nonobstructing renal calculi. Denies abdominal pain. No renal/flank tenderness on exam. Will monitor. C. DVT prophylaxis: On Eliquis. CODE STATUS full code confirmed. Microbiology Past 72 Hours 06/23/25 12:15 Sputum, Expectorated/Coughed Gram Stain - Final 06/22/25 14:41 Blood Culture (Wb) - Anticubital Right Blood Culture - Preliminary 06/23/25 10:13 Nasal Secretion MRSA (PCR) - Final 06/23/25 08:43 Urine Catheter - Catheter Legionella Antigen - Final 06/23/25 08:43 Urine Catheter - Catheter Streptococcus pneumoniae Antigen (M - Final 06/22/25 18:40 Mucosa - Nose Respiratory Panel (PCR) - Final 06/22/25 15:36 Mucosa - Nose SARS-CoV-2, Influenza & RSV (PCR) - Final Laboratory Results 06/23/25 08:35: Sodium 133, Potassium 4.1, Chloride 99, Carbon Dioxide 23.4, Anion Gap 11, BUN 18, Creatinine 0.74, Estim Creat Clear Calc 54.54, Est GFR (MDRD) Non-Af 81, BUN/Creatinine Ratio 23.6 H, Glucose 102 H, Calcium 8.2, NT pro BNP II 1033, Procalcitonin 0.41 H 06/24/25 04:44: WBC 15.8 H, RBC 3.96 L, Hgb 12.2, Hct 37.0, MCV 93.4, MCH 30.8, MCHC 33.0, RDW Std Deviation 47.8 H, RDW Coeff of Hilda 13.9, Plt Count 416, MPV 9.3, Immature Gran % (Auto) 1.000 H, Neut % (Auto) 91.9 H, Lymph % (Auto) 4.2 L, [place] % (Auto) 2.7, Eos % (Auto) 0.0, Baso % (Auto) 0.2, Absolute Neuts (auto) 14.5 H, Absolute Lymphs (auto) 0.66 L, Nucleated RBC % 0, Sodium 138, Potassium 4.0, Chloride 105, Carbon Dioxide 21.0, Anion Gap 12, BUN 17, Creatinine 0.55 L, Estim Creat Clear Calc 54.54, Est GFR (MDRD) Non-Af 93, BUN/Creatinine Ratio 30.1 H, Glucose 119 H, Calcium 8.0, Total Bilirubin 0.97, AST 33 H, ALT 16, Alkaline Phosphatase 150 H, Total Protein 6.0, Albumin 2.8 L, Globulin 3.3, Albumin/Globulin Ratio 0.9 Clinical Impression(s) from Imaging Studies Chest X-Ray 06/22/25 14:45 IMPRESSION: Cardiomegaly and CHF. Reading Location: [facility] Abdomen/Pelvis CT 06/22/25 17:53 IMPRESSION: Left renal pelvis 13 mm nonobstructive calculus with mild left hydronephrosis. Additional punctate bilateral nonobstructive renal calculi. Calcific densities within the pelvis not definitively traceable to the ureter-CT urography recommended to exclude ureteral calculus. Intra and extrahepatic biliary ductal dilation status post cholecystectomy, likely post-surgical. Colonic diverticulosis without evidence of acute diverticulitis. Patchy consolidative and ground-glass opacities at the lung bases, nonspecific-may represent atelectasis or infection. Chest CTA 06/22/25 21:04 IMPRESSION: 1. No pulmonary arterial emboli identified. 2. Extensive bilateral multifocal pneumonia. Presumed reactive mediastinal and hilar adenopathy. 3. Probable component of pulmonary edema, with trace bibasilar pleural effusions. 4. Redemonstrated subacute comminuted impacted fracture of the left humeral head/surgical neck. 5. Partially imaged stone in the left renal pelvis; see separate abdominal CT report. Reading Location: [id number] Charges/Coding Visit Charges Inpatient E&M: 17888 [facility] L[facility]
--- NOTE | 2025-06-24 08:22 | PN.CC_ITS ---
Assessment & Plan Assessment/Plan (1) Pneumonia: (2) Respiratory failure: PLAN: Plan RECOMMENDATIONS: 1. Continue empiric broad-spectrum antimicrobials. 2. Corticosteroids as ordered. 3. Wean FiO2 to maintain saturations at or above 90%. 4. Eliquis per home regimen. 5. Encourage incentive spirometer use and mobilize patient as tolerated. 6. Initiate empiric BiPAP therapy with naps and nightly. 7. Obtain follow-up chest x-ray. IMPRESSIONS: 1. Acute hypoxemic respiratory failure most likely secondary to severe community-acquired pneumonia Plan to continue supportive care with supplemental oxygen to maintain saturations at or above 90%. The patient's antimicrobials will be broadened, given her lack of response to outpatient therapy. Given her hypoxemia, will initiate corticosteroids, given mortality benefit noted with [place] trial. Encourage incentive spirometer use and mobilize patient as tolerated. Will plan to initiate empiric BiPAP therapy with naps and nightly, given with concern for possible sleep disordered breathing. Follow-up chest x-ray will be obtained. 2. History of paroxysmal atrial fibrillation history of paroxysmal atrial fibrillation Complicates care, management, recovery and prognosis. Continue home medications as indicated. This note was generated with [employer] dictation software. It may contain incorrect words, spelling, and punctuation that were not noted in checking the note before signing. Subjective Subjective The patient was seen and examined at the bedside this morning. Events from the last 24 hours have been reviewed. The patient is currently afebrile, hemodynamically stable and maintaining appropriate oxygen saturations on heated high flow oxygen. Nursing staff did report that the patient periodically desaturates with sleep, raising the concern for sleep apnea. White blood cell count this morning was noted to be 16,000. Creatinine is within normal limits. Objective Data Objective Data The patient's most recent lab work, culture data and imaging studies have all been personally reviewed. Sputum culture is pending. Vital Signs: Vital Signs Temp Pulse Resp BP Pulse Ox O2 Del Method O2 Flow Rate 97.6 F L 58 L 25 H 109/56 L 91 Airvo 60 06/24/25 06:00 06/24/25 07:00 06/24/25 07:00 06/24/25 07:00 06/24/25 07:00 06/24/25 07:00 06/24/25 06:00 FiO2 80 06/24/25 06:55 Oxygen Flow Rate (L/min) 60 Oxygen Delivery Method Airvo Weight: 136 lb 14.513 oz Body Mass Index (BMI) 21.4 Intake & Output: Intake and Output for Last 24 Hours 06/22/25 06/23/25 06/24/25 23:59 23:59 23:59 Intake Total 510 / 1010 3567.5 / 3807.5 490 / 490 Balance 510 / 1010 3567.5 / 3807.5 490 / 490 Lab / Micro Data Attestation: I reviewed the patient's lab results. 06/24/25 04:44 06/24/25 04:44 Labs: Laboratory Results - last 24 hr 06/23/25 08:35: Sodium 133, Potassium 4.1, Chloride 99, Carbon Dioxide 23.4, Anion Gap 11, BUN 18, Creatinine 0.74, Estim Creat Clear Calc 54.54, Est GFR (MDRD) Non-Af 81, BUN/Creatinine Ratio 23.6 H, Glucose 102 H, Calcium 8.2, NT pro BNP II 1033, Procalcitonin 0.41 H 06/24/25 04:44: WBC 15.8 H, RBC 3.96 L, Hgb 12.2, Hct 37.0, MCV 93.4, MCH 30.8, MCHC 33.0, RDW Std Deviation 47.8 H, RDW Coeff of Hilda 13.9, Plt Count 416, MPV 9.3, Immature Gran % (Auto) 1.000 H, Neut % (Auto) 91.9 H, Lymph % (Auto) 4.2 L, [place] % (Auto) 2.7, Eos % (Auto) 0.0, Baso % (Auto) 0.2, Absolute Neuts (auto) 14.5 H, Absolute Lymphs (auto) 0.66 L, Nucleated RBC % 0, Sodium 138, Potassium 4.0, Chloride 105, Carbon Dioxide 21.0, Anion Gap 12, BUN 17, Creatinine 0.55 L, Estim Creat Clear Calc 54.54, Est GFR (MDRD) Non-Af 93, BUN/Creatinine Ratio 30.1 H, Glucose 119 H, Calcium 8.0, Total Bilirubin 0.97, AST 33 H, ALT 16, A lkaline Phosphatase 150 H, Total Protein 6.0, Albumin 2.8 L, Globulin 3.3, Albumin/Globulin Ratio 0.9 Micro: Microbiology 06/23/25 12:15 Sputum, Expectorated/Coughed Gram Stain - Final 06/22/25 14:41 Blood Culture (Wb) - Anticubital Right Blood Culture - Preliminary 06/23/25 10:13 Nasal Secretion MRSA (PCR) - Final 06/23/25 08:43 Urine Catheter - Catheter Legionella Antigen - Final 06/23/25 08:43 Urine Catheter - Catheter Streptococcus pneumoniae Antigen (M - Final 06/22/25 18:40 Mucosa - Nose Respiratory Panel (PCR) - Final 06/22/25 15:36 Mucosa - Nose SARS-CoV-2, Influenza & RSV (PCR) - Final Physical Exam Const alert, oriented x3 and no apparent distress General Appearance: cooperative HEENT normocephalic and head/scalp atraumatic Eyes PERRL, EOMs intact bilaterally and conjunctivae normal Neck supple General: trachea midline Chest inspection of chest normal Resp normal respiratory effort Auscultation: rales Cardio regular rate and regular rhythm GI normal to inspection, nondistended, normoactive bowel sounds Extremity no clubbing, cyanosis or edema Skin no rashes or lesions noted Neuro CN's II-XII intact bilaterally, moves all extremities and no focal motor deficits Psych cooperative and affect normal Charges/Coding Visit Charges Inpatient E&M: 04268 Subs Hosp L3
--- NOTE | 2025-06-24 08:30 | RAD_ITS ---
PROCEDURE: CHEST 1 VIEW (PORTABLE) 06/24/2025 REASON FOR EXAM: RESPIRATORY FAILURE TECHNIQUE: Frontal view of the chest. COMPARISON: 06/22/2025. FINDINGS: Since the previous study, there is slightly improved aeration within the left lung base. However, hazy opacities persist within both lungs concerning for airspace infiltrates. Chronic fibro emphysematous changes are noted within both lungs. Stable cardiomegaly. Diffuse osteopenia with old healed right-sided rib fractures. RAD/Chest 1 View (Portable) IMPRESSION: As above. Reading Location: [id number]
[2025-06-24] MEDS: 0.9% Normal Saline (1000mL) 1,000 ML 75 ML IV (10:07)
--- NOTE | 2025-06-24 11:49 | CHAPLAIN ---
Type of Pastoral Visit _x__ Initial Visit ___ Follow-up Visit ___ On-call Visit ___ General Patient Visit ___ Spiritual Assessment ___ Family Conference ___ Bereavement ___ Rapid Response ___ Code Blue ___ Other (describe below) Pastoral Care Referral From _x__ Patient ___ Family ___ Nurse ___ Physician ___ Tobacco Prizer ___ Supervisor Matrix ___ Other (describe below) Sacrament/Intervention _x__ Active listening ___ Anointing ___ Druze ___ Bereavement ___ Communion _x__ Jillian exploration ___ ___ Life review _x__ Prayer ___ Reconciliation ___ Sacrament of Sick ___ Supportive presence ___ Wedding ___ Other (describe below) Pastoral Comments patient is offered support and presence; pt says that she is mostly handling this situation but would really like to get home jony; pt speaks of her jillian in [place] and wants prayer to be given; pt asks this setup technician to contact her oriental orthodox to request prayers as well; contact made with the oriental orthodox
[2025-06-25] VITALS (30 sets, daily range): BP systolic 87–150; BP diastolic 44–101; PULSE 55–87; RESP 15–30; TEMP 36.1–36.6; O2SAT 80–100; BMI 21.7
[2025-06-25] MEDS: 0.9% Saline Lock 10 ML Syringe IV ×6 (01:52→22:52)
[2025-06-25] MEDS: 0.9% Normal Saline (1000mL) 1,000 ML 75 ML IV (01:55)
[2025-06-25 04:20] LABS: Hematocrit 35.0 % (37-47); Hemoglobin 11.4 g/dL (12.0-15.0); Immature Granulocytes Count 0.220 X10^3/uL (0.0-0.0); Mean Corp Hgb Conc 32.6 g/dL (32-36); Mean Corpuscular Volume 93.8 fL (81-99); Mean Platelet Vol. 9.5 fl (6.2-12.0); NRBC Flagged by Analyzer 0 % (0-5); Platelet Count 430 K/mm3 (150-450); RBC Distribution Width CV 14.2 % (11.6-14.6); RBC Distribution Width SD 48.2 fl (35.1-43.9); Red Blood Count 3.73 M/mm3 (4.2-5.4); White Blood Count 20.7 K/mm3 (4.4-11.0)
[2025-06-25 04:44] LABS: Anion Gap 9 (5-15); BUN 22 mg/dL (4-19); BUN/Creat Ratio 33.3 RATIO (10-20); Calcium,Total 8.3 mg/dL (7.6-11.0); Carbon Dioxide 22.4 mmol/L (21.0-32.0); Chloride 107 mmol/L (98-108); Estimated Creatinine Clearance 54.54 ml/min (50-250); Glucose 146 mg/dL (70-99); Potassium 3.5 mmol/L (3.3-5.1)
[2025-06-25] MEDS: Piperacil/Tazobactam 3.375 GM in 0.9% Normal Saline (50mL MB+) 50 ML IV ×3 (05:45→22:54)
[2025-06-25] MEDS: APIXABAN 5 MG TABLET PO ×2 (08:01→22:58)
--- NOTE | 2025-06-25 08:51 | PCM.PN.HOSP ---
Reason for Visit Chief Complaint: Shortness of breath, urinary frequency Objective Data Objective Data Vital Signs: Vital Signs Temp Pulse Resp BP Pulse Ox O2 Del Method O2 Flow Rate 96.9 F L 87 22 H 125/77 H 95 Airvo 60 06/25/25 04:00 06/25/25 06:00 06/25/25 06:00 06/25/25 06:00 06/25/25 06:00 06/25/25 06:00 06/25/25 06:00 FiO2 85 06/25/25 06:00 Oxygen Flow Rate (L/min) 60 Oxygen Delivery Method Airvo Weight: 139 lb 1.787 oz Body Mass Index (BMI) 21.7 Intake & Output: Intake and Output for Last 24 Hours 06/23/25 06/24/25 06/25/25 23:59 23:59 23:59 Intake Total 3567.5 / 3807.5 1968.75 / 2118.75 1300 / 1300 Output Total 0 / 400 400 / 400 Balance 3567.5 / 3807.5 1968.75 / 1718.75 900 / 900 Lab / Micro Data 06/25/25 04:00 06/25/25 04:00 Labs: Laboratory Results - last 24 hr 06/25/25 04:00: WBC 20.7 H, RBC 3.73 L, Hgb 11.4 L, Hct 35.0 L, MCV 93.8, MCH 30.6, MCHC 32.6, RDW Std Deviation 48.2 H, RDW Coeff of Hilda 14.2, Plt Count 430, MPV 9.5, Immature Gran % (Auto) 1.100 H, Neut % (Auto) 92.5 H, Lymph % (Auto) 3.6 L, [place] % (Auto) 2.7, Eos % (Auto) 0.0, Baso % (Auto) 0.1, Absolute Neuts (auto) 19.2 H, Absolute Lymphs (auto) 0.74 L, Nucleated RBC % 0, Sodium 138, Potassium 3.5, Chloride 107, Carbon Dioxide 22.4, Anion Gap 9, BUN 22 H, Creatinine 0.66 L, Estim Creat Clear Calc 54.54, Est GFR (MDRD) Non-Af 89, BUN/Creatinine Ratio 33.3 H, Glucose 146 H, Calcium 8.3 Micro: Microbiology 06/22/25 14:41 Blood Culture (Wb) - Anticubital Left Blood Culture - Preliminary No growth in 48 hours. 06/22/25 14:41 Blood Culture (Wb) - Anticubital Right Blood Culture - Preliminary Coag Negative Staph 06/23/25 12:15 Sputum, Expectorated/Coughed Gram Stain - Final 06/23/25 10:13 Nasal Secretion MRSA (PCR) - Final 06/23/25 08:43 Urine Catheter - Catheter Legionella Antigen - Final 06/23/25 08:43 Urine Catheter - Catheter Streptococcus pneumoniae Antigen (M - Final 06/22/25 18:40 Mucosa - Nose Respiratory Panel (PCR) - Final 06/22/25 15:36 Mucosa - Nose SARS-CoV-2, Influenza & RSV (PCR) - Final Radiography Diagnostic Testing: Radiology Impression Chest X-Ray 06/24/25 08:30 IMPRESSION: As above. Reading Location: [facility] Physical Exam Narrative Seen and examined. Patient is still on Airvo 85% FiO2. Recommended to use BiPAP. No fever. Sinus bradycardia on the employment appeals examiner. Improving BMP Physical exam General: Alert, Oriented x3, Cooperative. BMI 21.3 kg/m?. HEENT: Hard of hearing. Atraumatic, PERRLA, EOMI, Normocephalic. Oral: No Gingival or Mucosal Lesions/ Ulcerations Neck: Supple, No JVD, Negative Carotid Bruits Chest wall/Lungs: Air entry diminished in bilateral lung bases. Mild coarse crepitations/wheezing Cardiovascular: Regular rate and rhythm, Normal S1,S2, No M/G/R Abdomen: Bowel Sounds Present, Soft, Non Tender, Non-Distended : No dysuria. Increased urgency but denies increased frequency. No renal angle tenderness. No suprapubic tenderness. Extremities: No edema, Capillary Refill Less than 3 Seconds Skin: No rashes, No breakdown Musculoskeletal: No Tenderness to Palpation of Joints or Extremities Neurological: Cranial nerves II-XII grossly intact, DTR 2+/4. No acute focal neurological deficit. Psych/Mental Status: Flat affect Assessment & Plan Assessment/Plan (1) Pneumonia: (2) Respiratory failure: PLAN: Plan This 80-year-old female was admitted with worsening shortness of breath for 2 weeks. She also had increased urinary urgency and some blood in the urine. Denies dysuria.Patient states she did not feel good for last 2 months She completed antibiotic about 5 days, Z-Jair; prior to admit. Denies chest pain but has mild cough and sometimes brings up phlegm. No fever. She said she also lost weight for last 2 months. 1. Acute hypoxic respiratory failure due to extensive bilateral multifocal Pneumonia: The patient is being admitted in ICU. Currently on the Airvo. Was found 60% on room air in ER and does not use home oxygen. Patient admitted with leukocytosis 22.7 K with immature granulocytes 3.4%, predominantly neutrophil 86%, lymphopenia 3.9%. Leukocytosis improving. Respiratory panel negative. Triple PCR for SARS-CoV-2, flu and RSV are negative. Initially started on levofloxacin but antibiotic broadened to include vancomycin and Zosyn. Chest CTA shows extensive bilateral multifocal pneumonia and presumed reactive mediastinal and hilar lymphadenopathy. Some component of pulmonary edema and trace bilateral pleural effusion 06/24: Still on Airvo. ABG near normal with pCO2 38.7. Pulmonary review whether needs to change NIPPV 06/25: Intermittent BiPAP to decrease respiratory work of breathing. Pulmonary hygiene. Repeat chest x-ray shows improved. Continue aeration left base. Hazy opacity persist within both lungs suggestive of infiltrate/pneumonia. 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 I agree with the CXR report. 2. Multifocal bilateral community-acquired pneumonia: Patient denies history of chronic lung disease. Denies history of smoking. She also states she does not have history of CHF probably mild pulmonary edema is reactive to diffuse bilateral pneumonia. 06/24 on broad-spectrum IV antibiotic. 3. Paroxysmal atrial fibrillation-: On the monitor patient is sinus rhythm. Eliquis 5 mg p.o. twice daily continued 4. Left renal pelvis nonobstructive calculus with mild left hydronephrosis: Patient did not know about the kidney stone prior to admission. Obviously did not pass the stone or had urologic procedure related to it. CT abdomen shows a left renal pelvis 30 mm nonobstructive calculus with mild left hydronephrosis. Additional punctate bilateral nonobstructing renal calculi. Denies abdominal pain. No renal/flank tenderness on exam. Will monitor. C. DVT prophylaxis: On Eliquis. CODE STATUS full code confirmed. Microbiology Past 72 Hours 06/22/25 14:41 Blood Culture (Wb) - Anticubital Left Blood Culture - Preliminary No growth in 48 hours. 06/22/25 14:41 Blood Culture (Wb) - Anticubital Right Blood Culture - Preliminary Coag Negative Staph 06/23/25 12:15 Sputum, Expectorated/Coughed Gram Stain - Final 06/23/25 10:13 Nasal Secretion MRSA (PCR) - Final 06/23/25 08:43 Urine Catheter - Catheter Legionella Antigen - Final 06/23/25 08:43 Urine Catheter - Catheter Streptococcus pneumoniae Antigen (M - Final 06/22/25 18:40 Mucosa - Nose Respiratory Panel (PCR) - Final 06/22/25 15:36 Mucosa - Nose SARS-CoV-2, Influenza & RSV (PCR) - Final Laboratory Results 06/25/25 04:00: WBC 20.7 H, RBC 3.73 L, Hgb 11.4 L, Hct 35.0 L, MCV 93.8, MCH 30.6, MCHC 32.6, RDW Std Deviation 48.2 H, RDW Coeff of Hilda 14.2, Plt Count 430, MPV 9.5, Immature Gran % (Auto) 1.100 H, Neut % (Auto) 92.5 H, Lymph % (Auto) 3.6 L, [place] % (Auto) 2.7, Eos % (Auto) 0.0, Baso % (Auto) 0.1, Absolute Neuts (auto) 19.2 H, Absolute Lymphs (auto) 0.74 L, Nucleated RBC % 0, Sodium 138, Potassium 3.5, Chloride 107, Carbon Dioxide 22.4, Anion Gap 9, BUN 22 H, Creatinine 0.66 L, Estim Creat Clear Calc 54.54, Est GFR (MDRD) Non-Af 89, BUN/Creatinine Ratio 33.3 H, Glucose 146 H, Calcium 8.3 Clinical Impression(s) from Imaging Studies Chest X-Ray 06/22/25 14:45 IMPRESSION: Cardiomegaly and CHF. [facility]elvis CT 06/22/25 17:53 IMPRESSION: Left renal pelvis 13 mm nonobstructive calculus with mild left hydronephrosis. Additional punctate bilateral nonobstructive renal calculi. Calcific densities within the pelvis not definitively traceable to the ureter-CT urography recommended to exclude ureteral calculus. Intra and extrahepatic biliary ductal dilation status post cholecystectomy, likely post-surgical. Colonic diverticulosis without evidence of acute diverticulitis. Patchy consolidative and ground-glass opacities at the lung bases, nonspecific-may represent atelectasis or infection. Reading Location: [id number] Chest CTA 06/22/25 21:04 IMPRESSION: 1. No pulmonary arterial emboli identified. 2. Extensive bilateral multifocal pneumonia. Presumed reactive mediastinal and hilar adenopathy. 3. Probable component of pulmonary edema, with trace bibasilar pleural effusions. 4. Redemonstrated subacute comminuted impacted fracture of the left humeral head/surgical neck. 5. Partially imaged stone in the left renal pelvis; see separate abdominal CT report. Reading Location: [id number] Chest X-Ray 06/24/25 08:30 IMPRESSION: As above. Charges/Coding Visit Charges Inpatient E&M: 64150 Subs Hosp L3
[2025-06-25] MEDS: Lactobacillis Acidophilus 1 CAP PO ×2 (09:30→22:59)
--- NOTE | 2025-06-25 11:51 | PN.CC_ITS ---
Assessment & Plan Assessment/Plan (1) Pneumonia: (2) Respiratory failure: PLAN: Plan RECOMMENDATIONS: 1. Continue empiric broad-spectrum antimicrobials. 2. Corticosteroids as ordered. 3. Wean FiO2 to maintain saturations at or above 90%. 4. Eliquis per home regimen. 5. Encourage incentive spirometer use and mobilize patient as tolerated. 6. Attempt gentle diuresis as tolerated by hemodynamics and renal function. IMPRESSIONS: 1. Acute hypoxemic respiratory failure most likely secondary to severe community-acquired pneumonia Plan to continue supportive care with supplemental oxygen to maintain saturations at or above 90%. The patient's antimicrobials will be broadened, given her lack of response to outpatient therapy. Given her hypoxemia, will continue corticosteroids. Encourage incentive spirometer use and mobilize patient as tolerated. Unfortunately, the patient was not tolerant of an attempt at BiPAP therapy. She does have objective findings concerning for possible sleep disordered breathing. Will attempt gentle diuresis today with IV Lasix. 2. History of paroxysmal atrial fibrillation history of paroxysmal atrial fibrillation Complicates care, management, recovery and prognosis. Continue home medications as indicated. This note was generated with [employer] dictation software. It may contain incorrect words, spelling, and punctuation that were not noted in checking the note before signing. Subjective Subjective The patient was seen and examined at the bedside this morning. Events from the last 24 hours have been reviewed. The patient is currently afebrile, hemodynamically stable and maintaining appropriate oxygen saturations on heated high flow with an FiO2 requirement of 75%. The patient was not tolerant of BiPAP therapy. White blood cell count is elevated at 20,000. Hemoglobin and platelet count are stable. Creatinine is within normal limits. Objective Data Objective Data The patient's most recent lab work, culture data and imaging studies have all been personally reviewed. Sputum culture is pending. Vital Signs: Vital Signs Temp Pulse Resp BP Pulse Ox O2 Del Method O2 Flow Rate 97.9 F 63 21 H 87/65 L 100 Airvo 60 06/25/25 10:00 06/25/25 11:08 06/25/25 11:08 06/25/25 11:00 06/25/25 11:08 06/25/25 11:00 06/25/25 06:00 FiO2 75 06/25/25 11:08 Oxygen Flow Rate (L/min) 60 Oxygen Delivery Method Airvo Weight: 139 lb 1.787 oz Body Mass Index (BMI) 21.7 Intake & Output: Intake and Output for Last 24 Hours 06/23/25 06/24/25 06/25/25 23:59 23:59 23:59 Intake Total 3567.5 / 3807.5 1967. / 2117.75 2455. / 2455. Output Total 0 / 400 400 / 400 Balance 3567.5 / 3807.5 1967. / 1717.75 / Lab / Micro Data Attestation: I reviewed the patient's lab results. 06/25/25 04:00 06/25/25 04:00 Labs: Laboratory Results - last 24 hr 06/25/25 04:00: WBC 20.7 H, RBC 3.73 L, Hgb 11.4 L, Hct 35.0 L, MCV 93.8, MCH 30.6, MCHC 32.6, RDW Std Deviation 48.2 H, RDW Coeff of Hilda 14.2, Plt Count 430, MPV 9.5, Immature Gran % (Auto) 1.100 H, Neut % (Auto) 92.5 H, Lymph % (Auto) 3.6 L, [place] % (Auto) 2.7, Eos % (Auto) 0.0, Baso % (Auto) 0.1, Absolute Neuts (auto) 19.2 H, Absolute Lymphs (auto) 0.74 L, Nucleated RBC % 0, Sodium 138, Potassium 3.5, Chloride 107, Carbon Dioxide 22.4, Anion Gap 9, BUN 22 H, C reatinine 0.66 L, Estim Creat Clear Calc 54.54, Est GFR (MDRD) Non-Af 89, B UN/Creatinine Ratio 33.3 H, Glucose 146 H, Calcium 8.3 Micro: Microbiology 06/22/25 15:36 Urine Catheter - Catheter Urine Culture - Preliminary GNR lactose lot technician Alpha hemolytic organism Staphylococcus species Alpha hemolytic organism#2 06/22/25 14:41 Blood Culture (Wb) - Anticubital Left Blood Culture - Preliminary No growth in 48 hours. 06/22/25 14:41 Blood Culture (Wb) - Anticubital Right Blood Culture - Preliminary Coag Negative Staph 06/23/25 12:15 Sputum, Expectorated/Coughed Gram Stain - Final 06/23/25 10:13 Nasal Secretion MRSA (PCR) - Final 06/23/25 08:43 Urine Catheter - Catheter Legionella Antigen - Final 06/23/25 08:43 Urine Catheter - Catheter Streptococcus pneumoniae Antigen (M - Final 06/22/25 18:40 Mucosa - Nose Respiratory Panel (PCR) - Final 06/22/25 15:36 Mucosa - Nose SARS-CoV-2, Influenza & RSV (PCR) - Final Physical Exam Const alert, oriented x3 and no apparent distress General Appearance: cooperative HEENT normocephalic and head/scalp atraumatic Eyes PERRL, EOMs intact bilaterally and conjunctivae normal Neck supple General: trachea midline Chest inspection of chest normal Resp normal respiratory effort and no use of accessory muscles Effort and Inspection: able to speak in complete sentences Auscultation: rales Cardio regular rate and regular rhythm GI normal to inspection, nondistended, normoactive bowel sounds Extremity no clubbing, cyanosis or edema Skin no rashes or lesions noted Neuro CN's II-XII intact bilaterally, moves all extremities and no focal motor deficits Psych cooperative and affect normal Charges/Coding Visit Charges Inpatient E&M: 72583 Subs Hosp L3
[2025-06-26] VITALS (35 sets, daily range): BP systolic 113–158; BP diastolic 69–99; PULSE 54–100; RESP 17–32; TEMP 36.3–36.6; O2SAT 85–97; BMI 21.7
[2025-06-26 04:38] LABS: Hematocrit 36.9 % (37-47); Hemoglobin 12.5 g/dL (12.0-15.0); Immature Granulocytes Count 0.080 X10^3/uL (0.0-0.0); Mean Corp Hgb Conc 33.9 g/dL (32-36); Mean Corpuscular Volume 91.8 fL (81-99); Mean Platelet Vol. 9.3 fl (6.2-12.0); NRBC Flagged by Analyzer 0 % (0-5); POSITIVE MORPHOLOGY YES; Platelet Count 422 K/mm3 (150-450); RBC Distribution Width CV 14.0 % (11.6-14.6); RBC Distribution Width SD 47.2 fl (35.1-43.9); Red Blood Count 4.02 M/mm3 (4.2-5.4); White Blood Count 16.2 K/mm3 (4.4-11.0)
[2025-06-26 04:41] LABS: Differential Indicated SCAN CRITERIA MET
[2025-06-26 05:04] LABS: Anion Gap 10 (5-15); BUN 23 mg/dL (4-19); BUN/Creat Ratio 34.4 RATIO (10-20); Calcium,Total 8.3 mg/dL (7.6-11.0); Carbon Dioxide 24.6 mmol/L (21.0-32.0); Chloride 103 mmol/L (98-108); Estimated Creatinine Clearance 54.54 ml/min (50-250); Glucose 144 mg/dL (70-99); Potassium 2.9 mmol/L (3.3-5.1)
[2025-06-26] MEDS: Piperacil/Tazobactam 3.375 GM in 0.9% Normal Saline (50mL MB+) 50 ML IV ×3 (06:14→20:53)
--- NOTE | 2025-06-26 07:42 | PCM.PN.INT ---
Assessment & Plan Assessment/Plan (1) Pneumonia: (2) Respiratory failure: PLAN: Plan RECOMMENDATIONS: 1. Continue empiric broad-spectrum antimicrobials. 2. Corticosteroids as ordered. 3. Wean FiO2 to maintain saturations at or above 90%. 4. Eliquis per home regimen. 5. Encourage incentive spirometer use and mobilize patient as tolerated. 6. Continue gentle diuresis as tolerated by hemodynamics and renal function. IMPRESSIONS: 1. Acute hypoxemic respiratory failure most likely secondary to severe community-acquired pneumonia Plan to continue supportive care with supplemental oxygen to maintain saturations at or above 90%. The patient's antimicrobials were broadened, given her lack of response to outpatient therapy. Given her hypoxemia, will continue corticosteroids. Encourage incentive spirometer use and mobilize patient as tolerated. Unfortunately, the patient was not tolerant of an attempt at BiPAP therapy. She does have objective findings concerning for possible sleep disordered breathing. Will continue ongoing attempts at gentle diuresis as tolerated by hemodynamics and renal function. 2. History of paroxysmal atrial fibrillation history of paroxysmal atrial fibrillation Complicates care, management, recovery and prognosis. Continue home medications as indicated. This note was generated with [employer] dictation software. It may contain incorrect words, spelling, and punctuation that were not noted in checking the note before signing. Subjective Subjective The patient was seen and examined at the bedside this morning. Events from the last 24 hours have been reviewed. The patient is currently afebrile, hemodynamically stable and maintaining appropriate oxygen saturations on heated high flow with an FiO2 requirement of 60% and flow rate of 40 L/min. The patient had an uneventful night. She does readily desaturate with any form of physical exertion. The patient tolerated diuresis yesterday. White blood cell count was noted to be 16,000 with a hemoglobin of 12.5 g/dL and platelet count of 422,000. Potassium is low at 2.9. Creatinine is within normal limits. Objective Data Objective Data The patient's most recent lab work, culture data and imaging studies have all been personally reviewed. Sputum culture is pending. Vital Signs: Vital Signs Temp Pulse Resp BP Pulse Ox O2 Del Method O2 Flow Rate 97.8 F 100 20 H 138/70 H 90 Airvo 40 06/26/25 04:00 06/26/25 07:32 06/26/25 07:00 06/26/25 07:00 06/26/25 07:00 06/26/25 07:00 06/26/25 07:00 FiO2 65 06/26/25 07:00 Oxygen Flow Rate (L/min) 40 Oxygen Delivery Method Airvo Weight: 138 lb 7.205 oz Body Mass Index (BMI) 21.7 Intake & Output: Intake and Output for Last 24 Hours 06/24/25 06/25/25 06/26/25 23:59 23:59 23:59 Intake Total 1967.75 / 8.75 3146.25 / 3146.25 50 / 50 Output Total 0 / 400 400 / 400 Balance 1968.75 / 1718.75 2746.25 / 2746.25 50 / 50 Lab / Micro Data Attestation: I reviewed the patient's lab results. 06/26/25 04:05 06/26/25 04:05 Labs: Laboratory Results - last 24 hr 06/26/25 04:05: WBC 16.2 H, RBC 4.02 L, Hgb 12.5, Hct 36.9 L, MCV 91.8, MCH 31.1, MCHC 33.9, RDW Std Deviation 47.2 H, RDW Coeff of Hilda 14.0, Plt Count 422, MPV 9.3, Immature Gran % (Auto) 0.500, Neut % (Auto) 94.2 H, Lymph % (Auto) 4.2 L, [place] % (Auto) 1.0, Eos % (Auto) 0.0, Baso % (Auto) 0.1, Absolute Neuts (auto) 15.3 H, Absolute Lymphs (auto) 0.68 L, Nucleated RBC % 0, Sodium 138, Potassium 2.9 L, Chloride 103, Carbon Dioxide 24.6, Anion Gap 10, BUN 23 H, Creatinine 0.67 L, Estim Creat Clear Calc 54.54, Est GFR (MDRD) Non-Af 88, BUN/Creatinine Ratio 34.4 H, Glucose 144 H, Calcium 8.3 Micro: Microbiology 06/23/25 12:15 Sputum, Expectorated/Coughed Gram Stain - Final 06/23/25 12:15 Sputum, Expectorated/Coughed Respiratory Culture - Final Mixed normal respiratory mark. No Streptococcus pneumoniae, beta-hemolytic Streptococcus or Staphylococcus aureus isolated. 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 06/22/25 14:41 Blood Culture (Wb) - Anticubital Right Blood Culture - Preliminary Coag Negative Staph 06/23/25 10:13 Nasal Secretion MRSA (PCR) - Final 06/23/25 08:43 Urine Catheter - Catheter Legionella Antigen - Final 06/23/25 08:43 Urine Catheter - Catheter Streptococcus pneumoniae Antigen (M - Final 06/22/25 18:40 Mucosa - Nose Respiratory Panel (PCR) - Final 06/22/25 15:36 Mucosa - Nose SARS-CoV-2, Influenza & RSV (PCR) - Final Physical Exam Const alert, oriented x3 and no apparent distress General Appearance: cooperative HEENT normocephalic and head/scalp atraumatic Eyes PERRL, EOMs intact bilaterally and conjunctivae normal Neck supple General: trachea midline Chest inspection of chest normal Resp normal respiratory effort and no use of accessory muscles Effort and Inspection: able to speak in complete sentences Auscultation: rales Cardio regular rate and regular rhythm GI normal to inspection, nondistended, normoactive bowel sounds Extremity no clubbing, cyanosis or edema Skin no rashes or lesions noted Neuro CN's II-XII intact bilaterally, moves all extremities and no focal motor deficits Psych cooperative and affect normal Charges/Coding Visit Charges Inpatient E&M: 91747 Subs Hosp L3
--- NOTE | 2025-06-26 08:06 | PCM.PN.HOSP ---
Reason for Visit Chief Complaint: Shortness of breath, urinary frequency Objective Data Objective Data Vital Signs: Vital Signs Temp Pulse Resp BP Pulse Ox O2 Del Method O2 Flow Rate 97.8 F 100 24 H 138/70 H 91 Airvo 40 06/26/25 04:00 06/26/25 07:32 06/26/25 07:26 06/26/25 07:00 06/26/25 07:26 06/26/25 07:00 06/26/25 07:00 FiO2 65 06/26/25 07:26 Oxygen Flow Rate (L/min) 40 Oxygen Delivery Method Airvo Weight: 138 lb 7.205 oz Body Mass Index (BMI) 21.7 Intake & Output: Intake and Output for Last 24 Hours 06/24/25 06/25/25 06/26/25 23:59 23:59 23:59 Intake Total 1968.75 / 8.75 3146.25 / 3146.25 50 / 50 Output Total 0 / 400 400 / 400 Balance 1968.75 / 1718.75 2746.25 / 2746.25 50 / 50 Lab / Micro Data 06/26/25 04:05 06/26/25 04:05 Labs: Laboratory Results - last 24 hr 06/26/25 04:05: WBC 16.2 H, RBC 4.02 L, Hgb 12.5, Hct 36.9 L, MCV 91.8, MCH 31.1, MCHC 33.9, RDW Std Deviation 47.2 H, RDW Coeff of Hilda 14.0, Plt Count 422, MPV 9.3, Immature Gran % (Auto) 0.500, Neut % (Auto) 94.2 H, Lymph % (Auto) 4.2 L, [place] % (Auto) 1.0, Eos % (Auto) 0.0, Baso % (Auto) 0.1, Absolute Neuts (auto) 15.3 H, Absolute Lymphs (auto) 0.68 L, Nucleated RBC % 0, Sodium 138, Potassium 2.9 L, Chloride 103, Carbon Dioxide 24.6, Anion Gap 10, BUN 23 H, Creatinine 0.67 L, Estim Creat Clear Calc 54.54, Est GFR (MDRD) Non-Af 88, BUN/Creatinine Ratio 34.4 H, Glucose 144 H, Calcium 8.3 Micro: Microbiology 06/22/25 15:36 Urine Catheter - Catheter Urine Culture - Final Escherichia coli Gemella morbillorum Staphylococcus capitis Streptococcus mitis/ oralis 06/23/25 12:15 Sputum, Expectorated/Coughed Gram Stain - Final 06/23/25 12:15 Sputum, Expectorated/Coughed Respiratory Culture - Final Mixed normal respiratory mark. No Streptococcus pneumoniae, beta-hemolytic Streptococcus or Staphylococcus aureus isolated. 06/22/25 14:41 Blood Culture (Wb) - Anticubital Left Blood Culture - Preliminary No growth in 48 hours. 06/22/25 14:41 Blood Culture (Wb) - Anticubital Right Blood Culture - Preliminary Coag Negative Staph 06/23/25 10:13 Nasal Secretion MRSA (PCR) - Final 06/23/25 08:43 Urine Catheter - Catheter Legionella Antigen - Final 06/23/25 08:43 Urine Catheter - Catheter Streptococcus pneumoniae Antigen (M - Final 06/22/25 18:40 Mucosa - Nose Respiratory Panel (PCR) - Final 06/22/25 15:36 Mucosa - Nose SARS-CoV-2, Influenza & RSV (PCR) - Final Physical Exam Narrative Seen and examined. Oxygenation is better than yesterday. She is anxious and is started on Xanax as needed. She did not use BiPAP. Patient is still on Airvo 65% FiO2. No fever. Sinus bradycardia on the satellite project site monitor. Improving BMP Physical exam General: Alert, Oriented x3, Cooperative. BMI 21.3 kg/m?. HEENT: Hard of hearing. Atraumatic, PERRLA, EOMI, Normocephalic. Oral: No Gingival or Mucosal Lesions/ Ulcerations Neck: Supple, No JVD, Negative Carotid Bruits Chest wall/Lungs: Air entry diminished in bilateral lung bases. Tachypneic. Mild coarse crepitations/wheezing Cardiovascular: Regular rate and rhythm, Normal S1,S2, No M/G/R Abdomen: Bowel Sounds Present, Soft, Non Tender, Non-Distended : No dysuria. Increased urgency but denies increased frequency. No renal angle tenderness. No suprapubic tenderness. Extremities: No edema, Capillary Refill Less than 3 Seconds Skin: No rashes, No breakdown Musculoskeletal: No Tenderness to Palpation of Joints or Extremities Neurological: Cranial nerves II-XII grossly intact, DTR 2+/4. No acute focal neurological deficit. Psych/Mental Status: Flat affect Assessment & Plan Assessment/Plan (1) Pneumonia: (2) Respiratory failure: PLAN: Plan This 80-year-old female was admitted with worsening shortness of breath for 2 weeks. She also had increased urinary urgency and some blood in the urine. Denies dysuria.Patient states she did not feel good for last 2 months She completed antibiotic about 5 days, Z-Jair; prior to admit. Denies chest pain but has mild cough and sometimes brings up phlegm. No fever. She said she also lost weight for last 2 months. 1. Acute hypoxic respiratory failure due to extensive bilateral multifocal Pneumonia: The patient is being admitted in ICU. Currently on the Airvo. Was found 60% on room air in ER and does not use home oxygen. Patient admitted with leukocytosis 22.7 K with immature granulocytes 3.4%, predominantly neutrophil 86%, lymphopenia 3.9%. Leukocytosis improving. Respiratory panel negative. Triple PCR for SARS-CoV-2, flu and RSV are negative. Initially started on levofloxacin but antibiotic broadened to include vancomycin and Zosyn. Chest CTA shows extensive bilateral multifocal pneumonia and presumed reactive mediastinal and hilar lymphadenopathy. Some component of pulmonary edema and trace bilateral pleural effusion 06/24: Still on Airvo. ABG near normal with pCO2 38.7. Pulmonary review whether needs to change NIPPV 06/25: Intermittent BiPAP to decrease respiratory work of breathing. Pulmonary hygiene. Repeat chest x-ray shows improved. Continue aeration left base. Hazy opacity persist within both lungs suggestive of infiltrate/pneumonia. 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 I agree with the CXR report. 06/26: Slow/gradual improvement. Furosemide 40 mL IV 1 dose ordered. On 65% FiO2 on Airvo. On IV hydrocortisone. Improvement in leukocytosis 2. Multifocal bilateral community-acquired pneumonia: Patient denies history of chronic lung disease. Denies history of smoking. She also states she does not have history of CHF probably mild pulmonary edema is reactive to diffuse bilateral pneumonia. 06/24 on broad-spectrum IV antibiotic. 06/26: Sputum culture shows mixed normal respiratory mark. Urine culture growing 4 organisms, contamination. 3. Paroxysmal atrial fibrillation-: On the monitor patient is sinus rhythm. Eliquis 5 mg p.o. twice daily continued 4. Left renal pelvis nonobstructive calculus with mild left hydronephrosis: Patient did not know about the kidney stone prior to admission. Obviously did not pass the stone or had urologic procedure related to it. CT abdomen shows a left renal pelvis 30 mm nonobstructive calculus with mild left hydronephrosis. Additional punctate bilateral nonobstructing renal calculi. Denies abdominal pain. No renal/flank tenderness on exam. Will monitor. C. DVT prophylaxis: On Eliquis. CODE STATUS full code confirmed. Microbiology Past 72 Hours 06/22/25 15:36 Urine Catheter - Catheter Urine Culture - Final Escherichia coli Gemella morbillorum Staphylococcus capitis Streptococcus mitis/ oralis 06/23/25 12:15 Sputum, Expectorated/Coughed Gram Stain - Final 06/23/25 12:15 Sputum, Expectorated/Coughed Respiratory Culture - Final Mixed normal respiratory mark. No Streptococcus pneumoniae, beta-hemolytic Streptococcus or Staphylococcus aureus isolated. 06/22/25 14:41 Blood Culture (Wb) - Anticubital Left Blood Culture - Preliminary No growth in 48 hours. 06/22/25 14:41 Blood Culture (Wb) - Anticubital Right Blood Culture - Preliminary Coag Negative Staph 06/23/25 10:13 Nasal Secretion MRSA (PCR) - Final 06/23/25 08:43 Urine Catheter - Catheter Legionella Antigen - Final 06/23/25 08:43 Urine Catheter - Catheter Streptococcus pneumoniae Antigen (M - Final Laboratory Results 06/26/25 04:05: WBC 16.2 H, RBC 4.02 L, Hgb 12.5, Hct 36.9 L, MCV 91.8, MCH 31.1, MCHC 33.9, RDW Std Deviation 47.2 H, RDW Coeff of Hilda 14.0, Plt Count 422, MPV 9.3, Immature Gran % (Auto) 0.500, Neut % (Auto) 94.2 H, Lymph % (Auto) 4.2 L, [place] % (Auto) 1.0, Eos % (Auto) 0.0, Baso % (Auto) 0.1, Absolute Neuts (auto) 15.3 H, Absolute Lymphs (auto) 0.68 L, Nucleated RBC % 0, Sodium 138, Potassium 2.9 L, Chloride 103, Carbon Dioxide 24.6, Anion Gap 10, BUN 23 H, Creatinine 0.67 L, Estim Creat Clear Calc 54.54, Est GFR (MDRD) Non-Af 88, BUN/Creatinine Ratio 34.4 H, Glucose 144 H, Calcium 8.3, Phosphorus Pending, Magnesium Pending Clinical Impression(s) from Imaging Studies Chest X-Ray 06/22/25 14:45 IMPRESSION: Cardiomegaly and CHF. [id number]Pelvis CT 06/22/25 17:53 IMPRESSION: Left renal pelvis 13 mm nonobstructive calculus with mild left hydronephrosis. Additional punctate bilateral nonobstructive renal calculi. Calcific densities within the pelvis not definitively traceable to the ureter-CT urography recommended to exclude ureteral calculus. Intra and extrahepatic biliary ductal dilation status post cholecystectomy, likely post-surgical. Colonic diverticulosis without evidence of acute diverticulitis. Patchy consolidative and ground-glass opacities at the lung bases, nonspecific-may represent atelectasis or infection. Reading Location: [id number] Chest CTA 06/22/25 21:04 IMPRESSION: 1. No pulmonary arterial emboli identified. 2. Extensive bilateral multifocal pneumonia. Presumed reactive mediastinal and hilar adenopathy. 3. Probable component of pulmonary edema, with trace bibasilar pleural effusions. 4. Redemonstrated subacute comminuted impacted fracture of the left humeral head/surgical neck. 5. Partially imaged stone in the left renal pelvis; see separate abdominal CT report. Reading Location: [id number] Chest X-Ray 06/24/25 08:30 IMPRESSION: As above. Charges/Coding Visit Charges Inpatient E&M: 03424 Subs Hosp L2
[2025-06-26 08:14] LABS: Magnesium 2.2 mg/dL (1.5-2.2)
[2025-06-26] MEDS: APIXABAN 5 MG TABLET PO ×2 (08:39→20:53)
[2025-06-26] MEDS: Lactobacillis Acidophilus 1 CAP PO ×2 (08:39→21:57)
[2025-06-26] MEDS: 0.9% Saline Lock 10 ML Syringe IV ×3 (08:39→17:53)
[2025-06-26] MEDS: Potassium Chloride 10mEq/100mL 10 MEQ/100 ML IV.SOLN. 100 MEQ IV BOLUS ×4 (09:54→12:42)
[2025-06-27] VITALS (32 sets, daily range): BP systolic 101–168; BP diastolic 73–115; PULSE 50–76; RESP 15–29; TEMP 36.1–36.8; O2SAT 91–100; BMI 21.0
[2025-06-27 03:34] LABS: Hematocrit 36.2 % (37-47); Hemoglobin 12.3 g/dL (12.0-15.0); Immature Granulocytes Count 0.060 X10^3/uL (0.0-0.0); Mean Corp Hgb Conc 34.0 g/dL (32-36); Mean Corpuscular Volume 91.2 fL (81-99); Mean Platelet Vol. 9.6 fl (6.2-12.0); NRBC Flagged by Analyzer 0 % (0-5); Platelet Count 406 K/mm3 (150-450); RBC Distribution Width CV 13.8 % (11.6-14.6); RBC Distribution Width SD 46.2 fl (35.1-43.9); Red Blood Count 3.97 M/mm3 (4.2-5.4); White Blood Count 12.4 K/mm3 (4.4-11.0)
[2025-06-27 03:53] LABS: Anion Gap 11 (5-15); BUN 30 mg/dL (4-19); BUN/Creat Ratio 47.6 RATIO (10-20); Calcium,Total 8.1 mg/dL (7.6-11.0); Carbon Dioxide 28.1 mmol/L (21.0-32.0); Chloride 100 mmol/L (98-108); Estimated Creatinine Clearance 53.92 ml/min (50-250); Glucose 144 mg/dL (70-99); Potassium 2.8 mmol/L (3.3-5.1)
[2025-06-27] MEDS: 0.9% Saline Lock 10 ML Syringe IV ×3 (05:50→21:24)
[2025-06-27] MEDS: Piperacil/Tazobactam 3.375 GM in 0.9% Normal Saline (50mL MB+) 50 ML IV ×3 (05:52→21:15)
--- NOTE | 2025-06-27 08:09 | PCM.PN.HOSP ---
Reason for Visit Chief Complaint: Shortness of breath, urinary frequency Objective Data Objective Data Vital Signs: Vital Signs Temp Pulse Resp BP Pulse Ox O2 Del Method O2 Flow Rate 97.1 F L 50 L 22 H 133/75 H 98 Airvo 40 06/27/25 04:00 06/27/25 07:13 06/27/25 07:13 06/27/25 07:00 06/27/25 07:13 06/27/25 07:48 06/27/25 07:48 FiO2 70 06/27/25 07:48 Oxygen Flow Rate (L/min) 40 Oxygen Delivery Method Airvo Weight: 134 lb 4.184 oz Body Mass Index (BMI) 21.0 Intake & Output: Intake and Output for Last 24 Hours 06/25/25 06/26/25 06/27/25 23:59 23:59 23:59 Intake Total 3146.25 / 3146.25 1333.33 / 1333.33 50 / 50 Output Total 400 / 400 500 / 500 Balance 2746.25 / 2746.25 833.33 / 833.33 50 / 50 Lab / Micro Data 06/27/25 03:25 06/27/25 03:25 Labs: Laboratory Results - last 24 hr 06/26/25 04:05: Phosphorus 2.4 L, Magnesium 2.2 06/27/25 03:25: WBC 12.4 H, RBC 3.97 L, Hgb 12.3, Hct 36.2 L, MCV 91.2, MCH 31.0, MCHC 34.0, RDW Std Deviation 46.2 H, RDW Coeff of Hilda 13.8, Plt Count 406, MPV 9.6, Immature Gran % (Auto) 0.500, Neut % (Auto) 90.4 H, Lymph % (Auto) 7.6 L, [place] % (Auto) 1.3, Eos % (Auto) 0.0, Baso % (Auto) 0.2, Absolute Neuts (auto) 11.2 H, Absolute Lymphs (auto) 0.94, Nucleated RBC % 0, Sodium 139, Potassium 2.8 L, Chloride 100, Carbon Dioxide 28.1, Anion Gap 11, BUN 30 H, Creatinine 0.64 L, Estim Creat Clear Calc 53.92, Est GFR (MDRD) Non-Af 89, BUN/Creatinine Ratio 47.6 H, Glucose 144 H, Calcium 8.1 Micro: Microbiology 06/26/25 09:40 Stool Enteric Bacteriology - Final 06/26/25 09:40 Stool Stool Lactoferrin - Final 06/26/25 09:40 Stool Stool Occult Blood (ALYSON) - Final Occult Blood Positive 06/26/25 09:40 Stool Clostridioides difficile (PCR) - Final 06/22/25 15:36 Urine Catheter - Catheter Urine Culture - Final Escherichia coli Gemella morbillorum Staphylococcus capitis Streptococcus mitis/ oralis 06/23/25 12:15 Sputum, Expectorated/Coughed Gram Stain - Final 06/23/25 12:15 Sputum, Expectorated/Coughed Respiratory Culture - Final Mixed normal respiratory mark. No Streptococcus pneumoniae, beta-hemolytic Streptococcus or Staphylococcus aureus isolated. 06/22/25 14:41 Blood Culture (Wb) - Anticubital Left Blood Culture - Preliminary No growth in 48 hours. 06/22/25 14:41 Blood Culture (Wb) - Anticubital Right Blood Culture - Preliminary Coag Negative Staph 06/23/25 10:13 Nasal Secretion MRSA (PCR) - Final 06/23/25 08:43 Urine Catheter - Catheter Legionella Antigen - Final 06/23/25 08:43 Urine Catheter - Catheter Streptococcus pneumoniae Antigen (M - Final 06/22/25 18:40 Mucosa - Nose Respiratory Panel (PCR) - Final 06/22/25 15:36 Mucosa - Nose SARS-CoV-2, Influenza & RSV (PCR) - Final Physical Exam Narrative Seen and examined. Patient on Airvo, 40 L/min, 70% FiO2. Overall feels better than yesterday and cannot take deep breath. She used BiPAP for short period of time No fever. 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 Had a small BM yesterday. Physical exam General: Alert, Oriented x3, Cooperative. BMI 21.3 kg/m?. HEENT: Hard of hearing. Atraumatic, PERRLA, EOMI, Normocephalic. Oral: No Gingival or Mucosal Lesions/ Ulcerations Neck: Supple, No JVD, Negative Carotid Bruits Chest wall/Lungs: Air entry diminished in bilateral lung bases. Mild coarse crepitations. Cardiovascular: Regular rate and rhythm, Normal S1,S2, No M/G/R Abdomen: Bowel Sounds Present, Soft, Non Tender, Non-Distended : No dysuria. Increased urgency but denies increased frequency. No renal angle tenderness. No suprapubic tenderness. Extremities: No edema, Capillary Refill Less than 3 Seconds Skin: No rashes, No breakdown Musculoskeletal: No Tenderness to Palpation of Joints or Extremities Neurological: Cranial nerves II-XII grossly intact, DTR 2+/4. No acute focal neurological deficit. Psych/Mental Status: Flat affect Assessment & Plan Assessment/Plan (1) Pneumonia: (2) Respiratory failure: PLAN: Plan This 80-year-old female was admitted with worsening shortness of breath for 2 weeks. She also had increased urinary urgency and some blood in the urine. Denies dysuria.Patient states she did not feel good for last 2 months She completed antibiotic about 5 days, Z-Jair; prior to admit. Denies chest pain but has mild cough and sometimes brings up phlegm. No fever. She said she also lost weight for last 2 months. 1. Acute hypoxic respiratory failure due to extensive bilateral multifocal Pneumonia: The patient is being admitted in ICU. Currently on the Airvo. Was found 60% on room air in ER and does not use home oxygen. Patient admitted with leukocytosis 22.7 K with immature granulocytes 3.4%, predominantly neutrophil 86%, lymphopenia 3.9%. Leukocytosis improving. Respiratory panel negative. Triple PCR for SARS-CoV-2, flu and RSV are negative. Initially started on levofloxacin but antibiotic broadened to include vancomycin and Zosyn. Chest CTA shows extensive bilateral multifocal pneumonia and presumed reactive mediastinal and hilar lymphadenopathy. Some component of pulmonary edema and trace bilateral pleural effusion 06/24: Still on Airvo. ABG near normal with pCO2 38.7. Pulmonary review whether needs to change NIPPV 06/25: Intermittent BiPAP to decrease respiratory work of breathing. Pulmonary hygiene. Repeat chest x-ray shows improved. Continue aeration left base. Hazy opacity persist within both lungs suggestive of infiltrate/pneumonia. 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 I agree with the CXR report. 06/26: Slow/gradual improvement. Furosemide 40 mL IV 1 dose ordered. On 65% FiO2 on Airvo. On IV hydrocortisone. Improvement in leukocytosis 06/27: Improving on Airvo. Plan to taper off the Airvo. Intermittent/rescue BiPAP. 2. Multifocal bilateral community-acquired pneumonia: Patient denies history of chronic lung disease. Denies history of smoking. She also states she does not have history of CHF probably mild pulmonary edema is reactive to diffuse bilateral pneumonia. 06/24 on broad-spectrum IV antibiotic. 06/26: Sputum culture shows mixed normal respiratory mark. Urine culture growing 4 organisms, contamination. 06/27: Stool for C. difficile negative. Enteric bacterial GI panel negative. Occult blood positive. 3. Paroxysmal atrial fibrillation-: On the monitor patient is sinus rhythm. Eliquis 5 mg p.o. twice daily continued 06/27: Currently sinus rhythm with discernible P waves. Rate is controlled 4. Left renal pelvis nonobstructive calculus with mild left hydronephrosis: Patient did not know about the kidney stone prior to admission. Obviously did not pass the stone or had urologic procedure related to it. CT abdomen shows a left renal pelvis 30 mm nonobstructive calculus with mild left hydronephrosis. Additional punctate bilateral nonobstructing renal calculi. Denies abdominal pain. No renal/flank tenderness on exam. Will monitor. Persistent hypokalemia: Hypokalemia for last 2 days despite IV KCl replacement. Serum magnesium normal. Mild hypophosphatemia. IV potassium phosphate ordered. Oral K. Dur. Monitor electrolytes C. DVT prophylaxis: On Eliquis. CODE STATUS full code confirmed. Microbiology Past 72 Hours 06/26/25 09:40 Stool Enteric Bacteriology - Final 06/26/25 09:40 Stool Stool Lactoferrin - Final 06/26/25 09:40 Stool Stool Occult Blood (ALYSON) - Final Occult Blood Positive 06/26/25 09:40 Stool Clostridioides difficile (PCR) - Final 06/22/25 15:36 Urine Catheter - Catheter Urine Culture - Final Escherichia coli Gemella morbillorum Staphylococcus capitis Streptococcus mitis/ oralis 06/23/25 12:15 Sputum, Expectorated/Coughed Gram Stain - Final 06/23/25 12:15 Sputum, Expectorated/Coughed Respiratory Culture - Final Mixed normal respiratory mark. No Streptococcus pneumoniae, beta-hemolytic Streptococcus or Staphylococcus aureus isolated. 06/22/25 14:41 Blood Culture (Wb) - Anticubital Left Blood Culture - Preliminary No growth in 48 hours. 06/22/25 14:41 Blood Culture (Wb) - Anticubital Right Blood Culture - Preliminary Coag Negative Staph Laboratory Results 06/26/25 04:05: Phosphorus 2.4 L, Magnesium 2.2 06/27/25 03:25: WBC 12.4 H, RBC 3.97 L, Hgb 12.3, Hct 36.2 L, MCV 91.2, MCH 31.0, MCHC 34.0, RDW Std Deviation 46.2 H, RDW Coeff of Hilda 13.8, Plt Count 406, MPV 9.6, Immature Gran % (Auto) 0.500, Neut % (Auto) 90.4 H, Lymph % (Auto) 7.6 L, [place] % (Auto) 1.3, Eos % (Auto) 0.0, Baso % (Auto) 0.2, Absolute Neuts (auto) 11.2 H, Absolute Lymphs (auto) 0.94, Nucleated RBC % 0, Sodium 139, Potassium 2.8 L, Chloride 06/26/25 04:05: WBC 16.2 H, RBC 4.02 L, Hgb 12.5, Hct 36.9 L, MCV 91.8, MCH 31.1, MCHC 33.9, RDW Std Deviation 47.2 H, RDW Coeff of Hilda 14.0, Plt Count 422, MPV 9.3, Immature Gran % (Auto) 0.500, Neut % (Auto) 94.2 H, Lymph % (Auto) 4.2 L, [place] % (Auto) 1.0, Eos % (Auto) 0.0, Baso % (Auto) 0.1, Absolute Neuts (auto) 15.3 H, Absolute Lymphs (auto) 0.68 L, Nucleated RBC % 0, Sodium 138, Potassium 2.9 L, Chloride 103, Carbon Dioxide 24.6, Anion Gap 10, BUN 23 H, Creatinine 0.67 L, Estim Creat Clear Calc 54.54, Est GFR (MDRD) Non-Af 88, BUN/Creatinine Ratio 34.4 H, Glucose 144 H, Calcium 8.3, Phosphorus Pending, Magnesium Pending Clinical Impression(s) from Imaging Studies Chest X-Ray 06/22/25 14:45 IMPRESSION: Cardiomegaly and CHF. Reading Location: [id number] Abdomen/Pelvis CT 06/22/25 17:53 IMPRESSION: Left renal pelvis 13 mm nonobstructive calculus with mild left hydronephrosis. Additional punctate bilateral nonobstructive renal calculi. Calcific densities within the pelvis not definitively traceable to the ureter-CT urography recommended to exclude ureteral calculus. Intra and extrahepatic biliary ductal dilation status post cholecystectomy, likely post-surgical. Colonic diverticulosis without evidence of acute diverticulitis. Patchy consolidative and ground-glass opacities at the lung bases, nonspecific-may represent atelectasis or infection. Reading Location: [facility] Chest CTA 06/22/25 21:04 IMPRESSION: 1. No pulmonary arterial emboli identified. 2. Extensive bilateral multifocal pneumonia. Presumed reactive mediastinal and hilar adenopathy. 3. Probable component of pulmonary edema, with trace bibasilar pleural effusions. 4. Redemonstrated subacute comminuted impacted fracture of the left humeral head/surgical neck. 5. Partially imaged stone in the left renal pelvis; see separate abdominal CT report. Reading Location: [id number] Chest X-Ray 06/24/25 08:30 IMPRESSION: As above. Charges/Coding Visit Charges Inpatient E&M: 26461 Subs Hosp L3
[2025-06-27] MEDS: Potassium Phosphate 30 MM in 0.9% Normal Saline (250mL Bag) 250 ML 55 MM IV (08:41)
[2025-06-27] MEDS: Potassium Chloride Oral Tablet 20 MEQ 40 MEQ PO ×2 (08:42→11:03)
[2025-06-27] MEDS: Lactobacillis Acidophilus 1 CAP PO ×3 (08:42→21:06)
[2025-06-27] MEDS: APIXABAN 5 MG TABLET PO ×2 (08:43→21:07)
--- NOTE | 2025-06-27 10:20 | PN.CC_ITS ---
Objective Data Objective Data Vital Signs: Vital Signs Last response 3 Temperature 36.7 C 06/27/25 08:00 Temperature Source Temporal 06/27/25 08:00 Pulse Rate 75 06/27/25 10:00 Pulse Strength Weak (1+) 06/27/25 07:48 Respiratory Rate 21 H 06/27/25 10:00 Respiratory Effort Normal, Non-Labored 06/27/25 07:48 Respiratory Depth Normal 06/27/25 07:48 Respiratory Pattern Normal 06/27/25 07:48 Blood Pressure 121/76 H 06/27/25 10:00 Blood Pressure Mean 91 06/27/25 10:00 Blood Pressure Source Monitor 06/27/25 10:00 Blood Pressure Position Sitting 06/27/25 10:00 Blood Pressure Location Right Arm 06/27/25 10:00 Pulse Ox 96 06/27/25 10:00 Oxygen Delivery Method Airvo 06/27/25 10:00 Oxygen Flow Rate (L/min) 40 06/27/25 10:00 Fraction of Inspired Oxygen (FIO2) 70 06/27/25 10:00 I&O: I&O Last 24 Hours 3 06/26/25 06/26/25 06/27/25 11:59 23:59 11:59 Intake Total 395 / 1333.33 938.33 / 1333.33 500 / 500 Output Total 500 / 500 Balance 395 / 833.33 438.33 / 833.33 500 / 500 I&O: Total Stay 3 06/22/25 14:09 thru 06/27/25 10:03 Intake Total 09133.83 Output Total 900 Balance 31105.83 Current Meds Ordered / Administered: Current meds ordered / Administered 3 Generic Name Dose Route Start Last Admin Trade Name Freq PRN Reason Stop Dose Admin Acetaminophen 650 mg 06/22/25 17:59 06/26/25 21:57 Acetaminophen 325 Mg Tablet PO 650 mg Q6H PRN PRN Administration Pain 1-10 Or Fever >100.7 Albuterol/Ipratropium 3 ml 06/22/25 17:59 06/27/25 07:13 Ipratropium/Albuterol Sulfate 3 Ml Ampul.Neb INHALATION 3 ml Q6H.RT DANIELA Administration Alprazolam 0.25 mg 06/25/25 16:10 06/26/25 15:46 Alprazolam 0.25 Mg Tablet PO 0.25 mg TID PRN PRN Administration ANXIETY/AGITATION Amiodarone HCl 200 mg 06/23/25 10:00 06/27/25 08:42 Amiodarone 200 Mg Tablet PO 200 mg DAILY DANIELA Administration Apixaban 5 mg 06/23/25 10:00 06/27/25 08:43 Apixaban 5 Mg Tablet PO 5 mg BID DANIELA Administration Calamine/Phenol 1 applic 06/24/25 10:00 06/27/25 08:42 Menthol/Lanolin/Calamine/Znox 113 Gm Tube TOPICAL 1 applic BID DANIELA Administration Protocol Hydrocortisone Sodium Succinate 50 mg 06/23/25 12:00 06/27/25 05:50 Hydrocortisone Sod Succinate 100 Mg/2 Ml Vial IV 50 mg Q6 DANIELA Administration Piperacillin Sod/Tazobactam 50 mls @ 12.5 mls/hr 06/23/25 07:25 06/27/25 10:03 Sod 3.375 gm/ Sodium Chloride IV Infused Q8 DANIELA Infusion Potassium Phosphate 30 mm/ 260 mls @ 55 mls/hr 06/27/25 07:35 06/27/25 08:41 Sodium Chloride IV 06/27/25 12:18 55 mls/hr X1 ONE Administration Ketorolac Tromethamine 15 mg 06/22/25 23:41 06/26/25 21:58 Ketorolac 15 Mg/Ml Vial IV 06/27/25 23:42 15 mg Q6H PRN PRN Administration Pain 1-10 or Fever Ondansetron HCl 4 mg 06/22/25 17:59 06/22/25 21:14 Ondansetron 4 Mg/2 Ml Vial IV 4 mg Q8H PRN PRN Administration NAUSEA/VOMITING Potassium Chloride 40 meq 06/27/25 07:45 06/27/25 08:42 Potassium Chloride Oral Tablet 20 Meq PO 06/27/25 10:46 40 meq Q3H DANIELA Administration Sodium Chloride 10 - 40 ml 06/22/25 18:09 06/27/25 05:50 0.9% Saline Lock 10 Ml Syringe IV 10 ml UD PRN Administration SALINE FLUSH Trazodone HCl 50 mg 06/23/25 22:00 06/26/25 20:53 Trazodone 50 Mg Tablet PO 50 mg QHS DANIELA Administration Zolpidem Tartrate 10 mg 06/23/25 18:21 06/26/25 22:58 Zolpidem Tartrate 5 Mg Tablet PO 10 mg QHS PRN Administration INSOMNIA Lab / Micro Data 06/27/25 03:25 06/27/25 03:25 Labs: Laboratory Results - last 24 hr 06/27/25 03:25: WBC 12.4 H, RBC 3.97 L, Hgb 12.3, Hct 36.2 L, MCV 91.2, MCH 31.0, MCHC 34.0, RDW Std Deviation 46.2 H, RDW Coeff of Hilda 13.8, Plt Count 406, MPV 9.6, Immature Gran % (Auto) 0.500, Neut % (Auto) 90.4 H, Lymph % (Auto) 7.6 L, [place] % (Auto) 1.3, Eos % (Auto) 0.0, Baso % (Auto) 0.2, Absolute Neuts (auto) 11.2 H, Absolute Lymphs (auto) 0.94, Nucleated RBC % 0, Sodium 139, Potassium 2.8 L, Chloride 100, Carbon Dioxide 28.1, Anion Gap 11, BUN 30 H, Creatinine 0.64 L, Estim Creat Clear Calc 53.92, Est GFR (MDRD) Non-Af 89, BUN/Creatinine Ratio 47.6 H, Glucose 144 H, Calcium 8.1 Micro: Microbiology 06/26/25 09:40 Stool Enteric Bacteriology - Final 06/26/25 09:40 Stool Stool Lactoferrin - Final 06/26/25 09:40 Stool Stool Occult Blood (ALYSON) - Final Occult Blood Positive 06/26/25 09:40 Stool Clostridioides difficile (PCR) - Final 06/22/25 15:36 Urine Catheter - Catheter Urine Culture - Final Escherichia coli Gemella morbillorum Staphylococcus capitis Streptococcus mitis/ oralis Assessment and Plan . Assessment and plan: Critical Care Time: The entirety of this encounter was done via Telemedicine Subjective Subjective Pt seen and examined. overall feels a little better, less SOB, cough now with a little yellow phelgm. HHFNC 40L/70% PE: General: elderly frail appearing female, in no distress; +HHFNC HEENT: anicteric Sclera, nl nose; supple neck, no masses Cardiovascular: S1/S2; No rubs, gallops; no displaced PM Respiratory: high pitched exp wheezes with cough paroxysms, no rhonchi Abdominal: Non-tender; Non distended; hypoBS x 4; No Hepatosplenomegaly Extremities: Warm, well perfused; No clubbing, cyanosis; capillary refill < 2 sec Skin: intact, no rashes Neurological: A&Ox3; no gross deficits appreciated A/P: #Acute hypoxemic respiratory failure #CAP #PAF on Eliquis -Cont HHFNC; titrate to keep sats ~90%; encourage mobilization/IS use -Cont broad spectrum emp IV Abx- Zosyn; switch steroids from hydrocort to methylpred -Gentle PRN diuresis to maintain net neg to euvolemic volume status; strict I/Os -Monitor HR; cont home Eliquis/amiodarone PO diet Eliquis Guarded prognosis Full code CCT: 50 min The entirety of this encounter was completed via telemedicine.
--- NOTE | 2025-06-27 13:50 | CPS ---
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
[2025-06-28] VITALS (32 sets, daily range): BP systolic 117–182; BP diastolic 67–118; PULSE 53–69; RESP 16–27; TEMP 36.7–37; O2SAT 82–98; BMI 21.4
[2025-06-28] MEDS: Piperacil/Tazobactam 3.375 GM in 0.9% Normal Saline (50mL MB+) 50 ML IV (05:04)
[2025-06-28] MEDS: Lactobacillis Acidophilus 1 CAP PO ×3 (05:28→21:58)
[2025-06-28] MEDS: 0.9% Saline Lock 10 ML Syringe IV ×4 (06:14→22:03)
[2025-06-28 06:22] LABS: Hematocrit 39.2 % (37-47); Hemoglobin 13.3 g/dL (12.0-15.0); Immature Granulocytes Count 0.110 X10^3/uL (0.0-0.0); Mean Corp Hgb Conc 33.9 g/dL (32-36); Mean Corpuscular Volume 92.2 fL (81-99); Mean Platelet Vol. 9.4 fl (6.2-12.0); NRBC Flagged by Analyzer 0 % (0-5); Platelet Count 400 K/mm3 (150-450); RBC Distribution Width CV 13.9 % (11.6-14.6); RBC Distribution Width SD 47.3 fl (35.1-43.9); Red Blood Count 4.25 M/mm3 (4.2-5.4); White Blood Count 12.3 K/mm3 (4.4-11.0)
[2025-06-28 06:47] LABS: Anion Gap 10 (5-15); BUN 26 mg/dL (4-19); BUN/Creat Ratio 51.2 RATIO (10-20); Calcium,Total 8.5 mg/dL (7.6-11.0); Carbon Dioxide 28.2 mmol/L (21.0-32.0); Chloride 100 mmol/L (98-108); Estimated Creatinine Clearance 54.54 ml/min (50-250); Glucose 144 mg/dL (70-99); Potassium 3.8 mmol/L (3.3-5.1)
--- NOTE | 2025-06-28 07:38 | PCM.PN.HOSP ---
Reason for Visit Chief Complaint: Shortness of breath, urinary frequency Objective Data Objective Data Vital Signs: Vital Signs Temp Pulse Resp BP Pulse Ox O2 Del Method O2 Flow Rate 98.2 F 61 22 H 182/89 H 95 Airvo 40 06/27/25 14:00 06/28/25 07:02 06/28/25 07:02 06/28/25 07:00 06/28/25 07:02 06/28/25 07:00 06/28/25 07:00 FiO2 50 06/28/25 07:02 Oxygen Flow Rate (L/min) 40 Oxygen Delivery Method Airvo Weight: 137 lb 5.568 oz Body Mass Index (BMI) 21.4 Intake & Output: Intake and Output for Last 24 Hours 06/26/25 06/27/25 06/28/25 23:59 23:59 23:59 Intake Total 1333.33 / 1333.33 2410 / 2410 50 / 50 Output Total 500 / 500 Balance 833.33 / 833.33 2410 / 2410 50 / 50 Lab / Micro Data 06/28/25 06:05 06/28/25 06:05 Labs: Laboratory Results - last 24 hr 06/28/25 06:05: WBC 12.3 H, RBC 4.25, Hgb 13.3, Hct 39.2, MCV 92.2, MCH 31.3, MCHC 33.9, RDW Std Deviation 47.3 H, RDW Coeff of Hilda 13.9, Plt Count 400, MPV 9.4, Immature Gran % (Auto) 0.900, Neut % (Auto) 91.9 H, Lymph % (Auto) 5.1 L, Edwards % (Auto) 2.0, Eos % (Auto) 0.0, Baso % (Auto) 0.1, Absolute Neuts (auto) 11.3 H, Absolute Lymphs (auto) 0.63 L, Nucleated RBC % 0, Sodium 138, Potassium 3.8, Chloride 100, Carbon Dioxide 28.2, Anion Gap 10, BUN 26 H, Creatinine 0.50 L, Estim Creat Clear Calc 54.54, Est GFR (MDRD) Non-Af 95, BUN/Creatinine Ratio 51.2 H, Glucose 144 H, Calcium 8.5 Micro: Microbiology 06/22/25 14:41 Blood Culture (Wb) - Anticubital Right Blood Culture - Final Coag Negative Staph 06/22/25 14:41 Blood Culture (Wb) - Anticubital Left Blood Culture - Final No growth in 5 days. 06/26/25 09:40 Stool Enteric Bacteriology - Final 06/26/25 09:40 Stool Stool Lactoferrin - Final 06/26/25 09:40 Stool Stool Occult Blood (ALYSON) - Final Occult Blood Positive 06/26/25 09:40 Stool Clostridioides difficile (PCR) - Final 06/22/25 15:36 Urine Catheter - Catheter Urine Culture - Final Escherichia coli Gemella morbillorum Staphylococcus capitis Streptococcus mitis/ oralis 06/23/25 12:15 Sputum, Expectorated/Coughed Gram Stain - Final 06/23/25 12:15 Sputum, Expectorated/Coughed Respiratory Culture - Final Mixed normal respiratory mark. No Streptococcus pneumoniae, beta-hemolytic Streptococcus or Staphylococcus aureus isolated. 06/23/25 10:13 Nasal Secretion MRSA (PCR) - Final 06/23/25 08:43 Urine Catheter - Catheter Legionella Antigen - Final 06/23/25 08:43 Urine Catheter - Catheter Streptococcus pneumoniae Antigen (M - Final 06/22/25 18:40 Mucosa - Nose Respiratory Panel (PCR) - Final 06/22/25 15:36 Mucosa - Nose SARS-CoV-2, Influenza & RSV (PCR) - Final Physical Exam Narrative Seen and examined. Patient on Airvo, 40 L/min, 50% FiO2. Oxygenation is improving. Mild dry cough. No fever. 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 Had a small BM yesterday. Physical exam General: Alert, Oriented x3, Cooperative. BMI 21.3 kg/m?. HEENT: Hard of hearing. Atraumatic, PERRLA, EOMI, Normocephalic. Oral: No Gingival or Mucosal Lesions/ Ulcerations Neck: Supple, No JVD, Negative Carotid Bruits Chest wall/Lungs: Air entry diminished in bilateral lung bases. Mild coarse crepitations. Cardiovascular: Regular rate and rhythm, Normal S1,S2, No M/G/R Abdomen: Bowel Sounds Present, Soft, Non Tender, Non-Distended : No dysuria. Increased urgency but denies increased frequency. No renal angle tenderness. No suprapubic tenderness. Extremities: No edema, Capillary Refill Less than 3 Seconds Skin: No rashes, No breakdown Musculoskeletal: No Tenderness to Palpation of Joints or Extremities Neurological: Cranial nerves II-XII grossly intact, DTR 2+/4. No acute focal neurological deficit. Psych/Mental Status: Flat affect Assessment & Plan Assessment/Plan (1) Pneumonia: (2) Respiratory failure: PLAN: Plan This 80-year-old female was admitted with worsening shortness of breath for 2 weeks. She also had increased urinary urgency and some blood in the urine. Denies dysuria.Patient states she did not feel good for last 2 months She completed antibiotic about 5 days, Z-Jair; prior to admit. Denies chest pain but has mild cough and sometimes brings up phlegm. No fever. She said she also lost weight for last 2 months. 1. Acute hypoxic respiratory failure due to extensive bilateral multifocal Pneumonia: The patient is being admitted in ICU. Currently on the Airvo. Was found 60% on room air in ER and does not use home oxygen. Patient admitted with leukocytosis 22.7 K with immature granulocytes 3.4%, predominantly neutrophil 86%, lymphopenia 3.9%. Leukocytosis improving. Respiratory panel negative. Triple PCR for SARS-CoV-2, flu and RSV are negative. Initially started on levofloxacin but antibiotic broadened to include vancomycin and Zosyn. Chest CTA shows extensive bilateral multifocal pneumonia and presumed reactive mediastinal and hilar lymphadenopathy. Some component of pulmonary edema and trace bilateral pleural effusion 06/24: Still on Airvo. ABG near normal with pCO2 38.7. Pulmonary review whether needs to change NIPPV 06/25: Intermittent BiPAP to decrease respiratory work of breathing. Pulmonary hygiene. Repeat chest x-ray shows improved. Continue aeration left base. Hazy opacity persist within both lungs suggestive of infiltrate/pneumonia. 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 I agree with the CXR report. 06/26: Slow/gradual improvement. Furosemide 40 mL IV 1 dose ordered. On 65% FiO2 on Airvo. On IV hydrocortisone. Improvement in leukocytosis 06/27: Improving on Airvo. Plan to taper off the Airvo. Intermittent/rescue BiPAP. 06/28: Airvo 50% FiO2, oxygenation seems improving. Increased pulmonary hygiene and mobilization 2. Multifocal bilateral community-acquired pneumonia: Patient denies history of chronic lung disease. Denies history of smoking. She also states she does not have history of CHF probably mild pulmonary edema is reactive to diffuse bilateral pneumonia. 06/24 on broad-spectrum IV antibiotic. 06/26: Sputum culture shows mixed normal respiratory mark. Urine culture growing 4 organisms, contamination. 06/27: Stool for C. difficile negative. Enteric bacterial GI panel negative. Occult blood positive. 06/28: Narrowed down antibiotic to IV ceftriaxone. Zosyn discontinued. Patient had 5 days of IV Zosyn. Cultures so far negative. One of the blood cultures, anaerobic bottle grew LAUNCHMAN, coagulase-negative staph and other blood culture negative therefore it is contamination 3. Blood pressure: Blood pressure is high in systolic 180s. Heart rate sinus bradycardia in low 60s with PVCs. Started on chlorthalidone 25 mg daily, lisinopril 10 mg daily. Hydralazine and labetalol ordered as needed. Paroxysmal atrial fibrillation-: On the monitor patient is sinus rhythm. Eliquis 5 mg p.o. twice daily continued 06/27: Currently sinus rhythm with discernible P waves. Rate is controlled 4. Left renal pelvis nonobstructive calculus with mild left hydronephrosis: Patient did not know about the kidney stone prior to admission. Obviously did not pass the stone or had urologic procedure related to it. CT abdomen shows a left renal pelvis 30 mm nonobstructive calculus with mild left hydronephrosis. Additional punctate bilateral nonobstructing renal calculi. Denies abdominal pain. No renal/flank tenderness on exam. Will monitor. Persistent hypokalemia: Hypokalemia for last 2 days despite IV KCl replacement. Serum magnesium normal. Mild hypophosphatemia. IV potassium phosphate ordered. Oral K. Dur. Monitor electrolytes C. DVT prophylaxis: On Eliquis. CODE STATUS full code confirmed. Microbiology Past 72 Hours 06/22/25 14:41 Blood Culture (Wb) - Anticubital Right Blood Culture - Final Coag Negative Staph 06/22/25 14:41 Blood Culture (Wb) - Anticubital Left Blood Culture - Final No growth in 5 days. 06/26/25 09:40 Stool Enteric Bacteriology - Final 06/26/25 09:40 Stool Stool Lactoferrin - Final 06/26/25 09:40 Stool Stool Occult Blood (ALYSON) - Final Occult Blood Positive 06/26/25 09:40 Stool Clostridioides difficile (PCR) - Final 06/22/25 15:36 Urine Catheter - Catheter Urine Culture - Final Escherichia coli Gemella morbillorum Staphylococcus capitis Streptococcus mitis/ oralis 06/23/25 12:15 Sputum, Expectorated/Coughed Gram Stain - Final 06/23/25 12:15 Sputum, Expectorated/Coughed Respiratory Culture - Final Mixed normal respiratory mark. No Streptococcus pneumoniae, beta-hemolytic Streptococcus or Staphylococcus aureus isolated. Laboratory Results 06/28/25 06:05: WBC 12.3 H, RBC 4.25, Hgb 13.3, Hct 39.2, MCV 92.2, MCH 31.3, MCHC 33.9, RDW Std Deviation 47.3 H, RDW Coeff of Hilda 13.9, Plt Count 400, MPV 9.4, Immature Gran % (Auto) 0.900, Neut % (Auto) 91.9 H, Lymph % (Auto) 5.1 L, Edwards % (Auto) 2.0, Eos % (Auto) 0.0, Baso % (Auto) 0.1, Absolute Neuts (auto) 11.3 H, Absolute Lymphs (auto) 0.63 L, Nucleated RBC % 0, Sodium 138, Potassium 3.8, Chloride 100, Carbon Dioxide 28.2, Anion Gap 10, BUN 26 H, Creatinine 0.50 L, Estim Creat Clear Calc 54.54, Est GFR (MDRD) Non-Af 95, BUN/Creatinine Ratio 51.2 H, Glucose 144 H, Calcium 8.5 Clinical Impression(s) from Imaging Studies Chest X-Ray 06/22/25 14:45 IMPRESSION: Cardiomegaly and CHF. Reading Location: [id number] Abdomen/Pelvis CT 06/22/25 17:53 IMPRESSION: Left renal pelvis 13 mm nonobstructive calculus with mild left hydronephrosis. Additional punctate bilateral nonobstructive renal calculi. Calcific densities within the pelvis not definitively traceable to the ureter-CT urography recommended to exclude ureteral calculus. Intra and extrahepatic biliary ductal dilation status post cholecystectomy, likely post-surgical. Colonic diverticulosis without evidence of acute diverticulitis. Patchy consolidative and ground-glass opacities at the lung bases, nonspecific-may represent atelectasis or infection. Reading Location: [id number] Chest CTA 06/22/25 21:04 IMPRESSION: 1. No pulmonary arterial emboli identified. 2. Extensive bilateral multifocal pneumonia. Presumed reactive mediastinal and hilar adenopathy. 3. Probable component of pulmonary edema, with trace bibasilar pleural effusions. 4. Redemonstrated subacute comminuted impacted fracture of the left humeral head/surgical neck. 5. Partially imaged stone in the left renal pelvis; see separate abdominal CT report. Reading Location: [id number] Chest X-Ray 06/24/25 08:30 IMPRESSION: As above. Charges/Coding Visit Charges Inpatient E&M: 70171 Subs Hosp L3
--- NOTE | 2025-06-28 08:56 | PN.CC_ITS ---
Objective Data Objective Data Vital Signs: Vital Signs Last response 3 Temperature 36.8 C 06/27/25 14:00 Temperature Source Temporal 06/27/25 14:00 Pulse Rate 62 06/28/25 08:00 Pulse Strength Weak (1+) 06/27/25 21:35 Respiratory Rate 22 H 06/28/25 07:02 Respiratory Effort Normal, Non-Labored 06/28/25 04:00 Respiratory Depth Normal 06/28/25 04:00 Respiratory Pattern Normal 06/28/25 07:02 Blood Pressure 182/89 H 06/28/25 07:00 Blood Pressure Mean 120 06/28/25 07:00 Blood Pressure Source Monitor 06/28/25 07:00 Blood Pressure Position Semi-Fowlers 06/28/25 07:00 Blood Pressure Location Right Arm 06/28/25 07:00 Pulse Ox 95 06/28/25 07:02 Oxygen Delivery Method Airvo 06/28/25 07:00 Oxygen Flow Rate (L/min) 40 06/28/25 07:00 Fraction of Inspired Oxygen (FIO2) 50 06/28/25 07:02 I&O: I&O Last 24 Hours 3 06/27/25 06/27/25 06/28/25 11:59 23:59 11:59 Intake Total 500 / 2410 1909 / 2410 98.13 / 98.13 Balance 500 / 2410 1909 / 241 98.13 / 98.13 I&O: Total Stay 3 06/22/25 14:09 thru 06/28/25 08:55 Intake Total 94738.96 Output Total 900 Balance 70555.96 Current Meds Ordered / Administered: Current meds ordered / Administered 3 Generic Name Dose Route Start Last Admin Trade Name Freq PRN Reason Stop Dose Admin Acetaminophen 650 mg 06/22/25 17:59 06/27/25 22:28 Acetaminophen 325 Mg Tablet PO 650 mg Q6H PRN PRN Administration Pain 1-10 Or Fever >100.7 Albuterol/Ipratropium 3 ml 06/22/25 17:59 06/28/25 07:01 Ipratropium/Albuterol Sulfate 3 Ml Ampul.Neb INHALATION 3 ml Q6H.RT DANIELA Administration Alprazolam 0.25 mg 06/25/25 16:10 06/27/25 16:37 Alprazolam 0.25 Mg Tablet PO 0.25 mg TID PRN PRN Administration ANXIETY/AGITATION Amiodarone HCl 200 mg 06/23/25 10:00 06/27/25 08:42 Amiodarone 200 Mg Tablet PO 200 mg DAILY DANIELA Administration Apixaban 5 mg 06/23/25 10:00 06/27/25 21:07 Apixaban 5 Mg Tablet PO 5 mg BID DANIELA Administration Calamine/Phenol 1 applic 06/24/25 10:00 06/27/25 21:07 Menthol/Lanolin/Calamine/Znox 113 Gm Tube TOPICAL 1 applic BID DANIELA Administration Protocol Chlorthalidone 25 mg 06/28/25 10:00 Chlorthalidone 25 Mg Tablet PO DAILY [facility] Protocol Hydralazine HCl 10 mg 06/28/25 08:33 Hydralazine 20 Mg/Ml Vial IV Q4H PRN PRN SBP more than 170 mmHg Protocol Ceftriaxone Sodium 1 gm in 50 mls @ 100 mls/hr 06/28/25 10:00 Rocephin IV Q24 [facility] Labetalol HCl 20 mg 06/28/25 08:33 Labetalol 20 Mg/4 Ml Vial IV Q4H PRN PRN SBP >190 mmHg Lisinopril 10 mg 06/28/25 10:00 Lisinopril 10 Mg Tablet PO DAILY [facility] Protocol Loperamide HCl 2 mg 06/27/25 14:08 06/28/25 05:28 Loperamide 2 Mg Capsule PO 2 mg Q4H PRN PRN Administration DIARRHEA Methylprednisolone Sodium Succinate 40 mg 06/27/25 14:00 06/28/25 06:11 Methylprednisolone Sod Succ 40 Mg/Ml Vial IV 40 mg Q8 DANIELA Administration Ondansetron HCl 4 mg 06/22/25 17:59 06/22/25 21:14 Ondansetron 4 Mg/2 Ml Vial IV 4 mg Q8H PRN PRN Administration NAUSEA/VOMITING Sodium Chloride 10 - 40 ml 06/22/25 18:09 06/28/25 06:14 0.9% Saline Lock 10 Ml Syringe IV 20 ml UD PRN Administration SALINE FLUSH Trazodone HCl 50 mg 06/23/25 22:00 06/27/25 23:01 Trazodone 50 Mg Tablet PO 50 mg QHS DANIELA Administration Zolpidem Tartrate 10 mg 06/23/25 18:21 06/27/25 23:12 Zolpidem Tartrate 5 Mg Tablet PO 10 mg QHS PRN Administration INSOMNIA Lab / Micro Data 06/28/25 06:05 06/28/25 06:05 Labs: Laboratory Results - last 24 hr 06/28/25 06:05: WBC 12.3 H, RBC 4.25, Hgb 13.3, Hct 39.2, MCV 92.2, MCH 31.3, MCHC 33.9, RDW Std Deviation 47.3 H, RDW Coeff of Hilda 13.9, Plt Count 400, MPV 9.4, Immature Gran % (Auto) 0.900, Neut % (Auto) 91.9 H, Lymph % (Auto) 5.1 L, [place] % (Auto) 2.0, Eos % (Auto) 0.0, Baso % (Auto) 0.1, Absolute Neuts (auto) 11.3 H, Absolute Lymphs (auto) 0.63 L, Nucleated RBC % 0, Sodium 138, Potassium 3.8, Chloride 100, Carbon Dioxide 28.2, Anion Gap 10, BUN 26 H, Creatinine 0.50 L, Estim Creat Clear Calc 54.54, Est GFR (MDRD) Non-Af 95, BUN/Creatinine Ratio 51.2 H, Glucose 144 H, Calcium 8.5 Micro: Microbiology 06/22/25 14:41 Blood Culture (Wb) - Anticubital Right Blood Culture - Final Coag Negative Staph 06/22/25 14:41 Blood Culture (Wb) - Anticubital Left Blood Culture - Final No growth in 5 days. Assessment and Plan . Assessment and plan: Critical Care Time: The entirety of this encounter was done via Telemedicine Subjective Subjective Pt seen and examined. Feels like she is slow improving. Still with cough but only intermittently brings up phlegm although she feels there is more in her chest to bring up. Up in chair. Tolerating diet. On HHFNC 40L/60%. PE: General: elderly frail appearing female, in no distress; +HHFNC HEENT: anicteric Sclera, nl nose; supple neck, no masses Cardiovascular: S1/S2; No rubs, gallops; no displaced PM Respiratory: high pitched exp wheezes with cough paroxysms, no rhonchi Abdominal: Non-tender; Non distended; hypoBS x 4; No Hepatosplenomegaly Extremities: Warm, well perfused; No clubbing, cyanosis; capillary refill < 2 sec Skin: intact, no rashes Neurological: A&Ox3; no gross deficits appreciated A/P: #Acute hypoxemic respiratory failure #CAP #PAF on Eliquis -Cont HHFNC; titrate to keep sats ~90%; encourage mobilization/IS use -Cont broad spectrum emp IV Abx- Zosyn; switch steroids from hydrocort to methylpred -Added Mucomyst to nebs for improved bronchopulm hygiene -Gentle PRN diuresis to maintain net neg to euvolemic volume status; strict I/Os -Monitor HR; cont home Eliquis/amiodarone PO diet Eliquis Guarded prognosis; good candidate for LTAC Full code CCT: 50 min The entirety of this encounter was completed via telemedicine.
[2025-06-28] MEDS: APIXABAN 5 MG TABLET PO (09:48)
[2025-06-28] MEDS: Acetylcysteine 800 MG/4 ML VIAL.NEB. INHALATION ×2 (14:00→19:12)
[2025-06-28] MEDS: Pantoprazole Sodium 40 MG in 0.9% Normal Saline (100mL MB+) 100 ML 330 MG IV (15:35)
[2025-06-28 15:51] LABS: Hematocrit 38.0 % (37-47); Hemoglobin 13.2 g/dL (12.0-15.0)
[2025-06-28 18:27] LABS: Color, Urine Red (Yellow); Glucose, Dipstick 100 mg/dl (Normal); Ketone-Dipstick Negative (Negative); Leukocyte Esterase-Dipstick 100 /ul (Negative); Mucous, Urine 0 SEEN /hpf (<or=2+); Nitrite-Dipstick Negative (Negative); Occult Blood-Urine 250 /ul (Negative); Protein-Dipstick 100 mg/dl (Negative); Specific Gravity, Urine 1.015 (1.002-1.030); Urine Bilirubin Dipstick Negative (Negative)
[2025-06-28 19:43] LABS: Red Blood Cells-Urine > 100 SEEN /hpf (0-5)
[2025-06-28 19:54] LABS: Squamous Epithelial Cells - UA 5-10 SEEN /hpf (5-10)
--- NOTE | 2025-06-28 22:44 | NURSING ---
This RN noticed on 06/28 around 0 that the trazodone medication in the MAR was miss scanned on 06/27. It appears it was scanned twice, once for 2300, which was when the medication was administered, and once at 2105, which was not the correct time of the administration. This RN made a note in the MAR of the mistake and undid the administration for 2105.
[2025-06-29] VITALS (24 sets, daily range): BP systolic 113–179; BP diastolic 65–97; PULSE 51–92; RESP 1–30; TEMP 36.6–36.7; O2SAT 90–99; BMI 21.8
[2025-06-29] MEDS: Acetylcysteine 800 MG/4 ML VIAL.NEB. INHALATION ×4 (01:42→19:55)
[2025-06-29] MEDS: Lactobacillis Acidophilus 1 CAP PO ×3 (05:29→21:58)
[2025-06-29] MEDS: 0.9% Saline Lock 10 ML Syringe IV ×2 (05:34→09:54)
--- NOTE | 2025-06-29 05:47 | PN.CC_ITS ---
Assessment & Plan Assessment/Plan (1) Pneumonia: (2) Respiratory failure: PLAN: Plan RECOMMENDATIONS: 1. Continue antimicrobials. 2. Corticosteroids as ordered. 3. Continue to wean supplemental oxygen to maintain saturations at or above 90%. 4. Eliquis per home regimen. 5. Encourage incentive spirometer use and mobilize patient as tolerated. 6. Continue gentle diuresis as tolerated by hemodynamics and renal function. IMPRESSIONS: 1. Acute hypoxemic respiratory failure most likely secondary to severe community-acquired pneumonia Plan to continue supportive care with supplemental oxygen to maintain saturations at or above 90%. The patient's antimicrobials were broadened, given her lack of response to outpatient therapy. Given her hypoxemia, will continue corticosteroids. Encourage incentive spirometer use and mobilize patient as tolerated. Unfortunately, the patient was not tolerant of an attempt at BiPAP therapy. She does have objective findings concerning for possible sleep disordered breathing. Will continue ongoing attempts at gentle diuresis as tolerated by hemodynamics and renal function. 2. History of paroxysmal atrial fibrillation history of paroxysmal atrial fibrillation Complicates care, management, recovery and prognosis. Continue home medications as indicated. This note was generated with [facility] dictation software. It may contain incorrect words, spelling, and punctuation that were not noted in checking the note before signing. Subjective Subjective The patient was seen and examined at the bedside this morning. Events from the last 24 hours have been reviewed. The patient is currently afebrile, hemodynamically stable and maintaining appropriate oxygen saturations on 6 L/min via nasal cannula. The patient has no specific complaints this morning. White blood cell count is elevated at 14,000. Hemoglobin and platelet count are stable. Creatinine is within normal limits. Objective Data Objective Data The patient's most recent lab work, culture data and imaging studies have all been personally reviewed. Sputum culture has not demonstrated any growth to date. Vital Signs: Vital Signs Temp Pulse Resp BP Pulse Ox O2 Del Method O2 Flow Rate 98.1 F 54 L 18 168/96 H 93 Airvo 40 06/28/25 16:00 06/29/25 05:00 06/29/25 05:00 06/29/25 05:00 06/29/25 05:00 06/29/25 05:00 06/29/25 05:00 FiO2 60 06/29/25 05:00 Oxygen Flow Rate (L/min) 40 Oxygen Delivery Method Airvo Weight: 139 lb 8.842 oz Body Mass Index (BMI) 21.8 Intake & Output: Intake and Output for Last 24 Hours 06/27/25 06/28/25 06/29/25 23:59 23:59 23:59 Intake Total 2410 / 2410 888.13 / 888.13 Output Total 650 / 650 Balance 2410 / 2410 238.13 / 238.13 Lab / Micro Data Attestation: I reviewed the patient's lab results. 06/29/25 10:20 06/29/25 10:20 Labs: Laboratory Results - last 24 hr 06/28/25 06:05: WBC 12.3 H, RBC 4.25, Hgb 13.3, Hct 39.2, MCV 92.2, MCH 31.3, MCHC 33.9, RDW Std Deviation 47.3 H, RDW Coeff of Hilda 13.9, Plt Count 400, MPV 9.4, Immature Gran % (Auto) 0.900, Neut % (Auto) 91.9 H, Lymph % (Auto) 5.1 L, [place] % (Auto) 2.0, Eos % (Auto) 0.0, Baso % (Auto) 0.1, Absolute Neuts (auto) 11.3 H, Absolute Lymphs (auto) 0.63 L, Nucleated RBC % 0, Sodium 138, Potassium 3.8, Chloride 100, Carbon Dioxide 28.2, Anion Gap 10, BUN 26 H, Creatinine 0.50 L, Estim Creat Clear Calc 54.54, Est GFR (MDRD) Non-Af 95, BUN/Creatinine Ratio 51.2 H, Glucose 144 H, Calcium 8.5 06/28/25 15:30: Hgb 13.2, Hct 38.0 06/28/25 18:10: Urine Color Red, Urine Clarity Cloudy, Urine pH 6.5, Ur Specific [place] 1.015, Urine Protein 100 H, Urine Glucose (UA) 100 H, Urine Ketones Negative, Urine Occult Blood 250 H, Urine Nitrite Negative, Urine Bilirubin Negative, Urine Urobilinogen Normal, Ur Leukocyte Esterase 100 H, Urine RBC > 100 SEEN, Urine WBC 5-10 SEEN, Ur Squamous Epith Cells 5-10 SEEN, Urine Bacteria 1+, Urine Mucus 0 SEEN Micro: Microbiology 06/22/25 14:41 Blood Culture (Wb) - Anticubital Right Blood Culture - Final Coag Negative Staph 06/22/25 14:41 Blood Culture (Wb) - Anticubital Left Blood Culture - Final No growth in 5 days. 06/26/25 09:40 Stool Enteric Bacteriology - Final 06/26/25 09:40 Stool Stool Lactoferrin - Final 06/26/25 09:40 Stool Stool Occult Blood (ALYSON) - Final Occult Blood Positive 06/26/25 09:40 Stool Clostridioides difficile (PCR) - Final 06/22/25 15:36 Urine Catheter - Catheter Urine Culture - Final Escherichia coli Gemella morbillorum Staphylococcus capitis Streptococcus mitis/ oralis 06/23/25 12:15 Sputum, Expectorated/Coughed Gram Stain - Final 06/23/25 12:15 Sputum, Expectorated/Coughed Respiratory Culture - Final Mixed normal respiratory mark. No Streptococcus pneumoniae, beta-hemolytic Streptococcus or Staphylococcus aureus isolated. 06/23/25 10:13 Nasal Secretion MRSA (PCR) - Final 06/23/25 08:43 Urine Catheter - Catheter Legionella Antigen - Final 06/23/25 08:43 Urine Catheter - Catheter Streptococcus pneumoniae Antigen (M - Final 06/22/25 18:40 Mucosa - Nose Respiratory Panel (PCR) - Final 06/22/25 15:36 Mucosa - Nose SARS-CoV-2, Influenza & RSV (PCR) - Final Physical Exam Const alert, oriented x3 and no apparent distress Constitutional Narrative: Sitting in bedside recliner. General Appearance: cooperative HEENT normocephalic and head/scalp atraumatic Eyes PERRL, EOMs intact bilaterally and conjunctivae normal Neck supple General: trachea midline Chest inspection of chest normal Resp normal respiratory effort and no use of accessory muscles Effort and Inspection: able to speak in complete sentences Auscultation: rales Cardio regular rate and regular rhythm GI normal to inspection, nondistended, normoactive bowel sounds Extremity no clubbing, cyanosis or edema Skin no rashes or lesions noted Neuro CN's II-XII intact bilaterally, moves all extremities and no focal motor deficits Psych cooperative and affect normal Charges/Coding Visit Charges Inpatient E&M: 75969 Subs Hosp L2
--- NOTE | 2025-06-29 07:48 | PN.HOSP_ITS ---
Reason for Visit Chief Complaint: Shortness of breath, urinary frequency Subjective Subjective Breathing better. Had been sick for 1 month prior. Failed a course of azithromycin. Objective Data Objective Data Vital Signs: Vital Signs Temp Pulse Resp BP Pulse Ox O2 Del Method O2 Flow Rate 36.7 C 66 23 H 140/75 H 93 Airvo 40 06/28/25 16:00 06/29/25 07:00 06/29/25 07:00 06/29/25 07:00 06/29/25 07:00 06/29/25 07:00 06/29/25 07:00 FiO2 60 06/29/25 07:00 Oxygen Flow Rate (L/min) 40 Oxygen Delivery Method Airvo Weight: 63.3 kg Body Mass Index (BMI) 21.8 Intake & Output: Intake and Output for Last 24 Hours 06/27/25 06/28/25 06/29/25 23:59 23:59 23:59 Intake Total 2410 / 2410 888.13 / 888.13 Output Total 650 / 650 Balance 2410 / 2410 238.13 / 238.13 Lab / Micro Data 06/29/25 10:20 06/29/25 10:20 Labs: Laboratory Results - last 24 hr 06/28/25 15:30: Hgb 13.2, Hct 38.0 06/28/25 18:10: Urine Color Red, Urine Clarity Cloudy, Urine pH 6.5, Ur Specific [place] 1.015, Urine Protein 100 H, Urine Glucose (UA) 100 H, Urine Ketones Negative, Urine Occult Blood 250 H, Urine Nitrite Negative, Urine Bilirubin Negative, Urine Urobilinogen Normal, Ur Leukocyte Esterase 100 H, Urine RBC > 100 SEEN, Urine WBC 5-10 SEEN, Ur Squamous Epith Cells 5-10 SEEN, Urine Bacteria 1+, Urine Mucus 0 SEEN Micro: Microbiology 06/22/25 14:41 Blood Culture (Wb) - Anticubital Right Blood Culture - Final Coag Negative Staph 06/22/25 14:41 Blood Culture (Wb) - Anticubital Left Blood Culture - Final No growth in 5 days. 06/26/25 09:40 Stool Enteric Bacteriology - Final 06/26/25 09:40 Stool Stool Lactoferrin - Final 06/26/25 09:40 Stool Stool Occult Blood (ALYSON) - Final Occult Blood Positive 06/26/25 09:40 Stool Clostridioides difficile (PCR) - Final 06/22/25 15:36 Urine Catheter - Catheter Urine Culture - Final Escherichia coli Gemella morbillorum Staphylococcus capitis Streptococcus mitis/ oralis 06/23/25 12:15 Sputum, Expectorated/Coughed Gram Stain - Final 06/23/25 12:15 Sputum, Expectorated/Coughed Respiratory Culture - Final Mixed normal respiratory mark. No Streptococcus pneumoniae, beta-hemolytic Streptococcus or Staphylococcus aureus isolated. 06/23/25 10:13 Nasal Secretion MRSA (PCR) - Final 06/23/25 08:43 Urine Catheter - Catheter Legionella Antigen - Final 06/23/25 08:43 Urine Catheter - Catheter Streptococcus pneumoniae Antigen (M - Final 06/22/25 18:40 Mucosa - Nose Respiratory Panel (PCR) - Final 06/22/25 15:36 Mucosa - Nose SARS-CoV-2, Influenza & RSV (PCR) - Final Physical Exam Const alert and no apparent distress HEENT head/scalp atraumatic and moist oral mucous membranes Resp normal respiratory effort and no retractions Resp Narrative: bilateral crackles. GI normal to inspection, nondistended, normoactive bowel sounds, soft to palpation, non-tender and non-distended Extremity normal to inspection and full ROM Neuro Sensorium / Orientation: awake, alert, oriented to person and oriented to place Psych affect normal Assessment & Plan Assessment/Plan (1) Pneumonia: (2) Respiratory failure: PLAN: Plan Acute hypoxic respiratory failure due to extensive bilateral multifocal Pneumonia: * Currently on the Airvo. Was found 60% on room air in ER and does not use home oxygen. Patient admitted with leukocytosis 22.7 K with immature granulocytes 3.4%, predominantly neutrophil 86%, lymphopenia 3.9%. Leukocytosis improving. Respiratory panel negative. Triple PCR for SARS-CoV-2, flu and RSV are negative. Initially started on levofloxacin but antibiotic broadened to include vancomycin and Zosyn. Chest CTA shows extensive bilateral multifocal pneumonia and presumed reactive mediastinal and hilar lymphadenopathy. Some component of pulmonary edema and trace bilateral pleural effusion * 06/24: Still on Airvo. ABG near normal with pCO2 38.7. Pulmonary review whether needs to change NIPPV * 06/25: Intermittent BiPAP to decrease respiratory work of breathing. Pulmonary hygiene. Repeat chest x-ray shows improved. Continue aeration left base. Hazy opacity persist within both lungs suggestive of infiltrate/pneumonia. 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 * 06/26: Slow/gradual improvement. Furosemide 40 mL IV 1 dose ordered. On 65% FiO2 on Airvo. On IV hydrocortisone. Improvement in leukocytosis * 06/27: Improving on Airvo. Plan to taper off the Airvo. Intermittent/rescue BiPAP. * 06/28: Airvo 50% FiO2, oxygenation seems improving. Increased pulmonary hygiene and mobilization * 06/29: CTX, methylprednisolone, Weaned down to 6 liters NC. On furosemide challenge. On acetylcysteine. Multifocal bilateral * due to suspected pneumococcal pneumonia * 06/24 on broad-spectrum IV antibiotic.06/26: Sputum culture shows mixed normal respiratory mark. Urine culture growing 4 organisms, contamination.06/27: Stool for C. difficile negative. Enteric bacterial GI panel negative. Occult blood positive. * 06/28: Narrowed down antibiotic to IV ceftriaxone. Zosyn discontinued. Patient had 5 days of IV Zosyn. Cultures so far negative. One of the blood cultures, anaerobic bottle grew [employer], coagulase-negative staph and other blood culture negative therefore it is contamination Chronic conditions: * Paroxysmal atrial fibrillation-: On the monitor patient is sinus rhythm. Eliquis 5 mg p.o. twice daily [id number]: Currently sinus rhythm with discernible P waves. Rate is controlled. on amiodarone. * Left renal pelvis nonobstructive calculus with mild left hydronephrosis: Patient did not know about the kidney stone prior to admission. Obviously did not pass the stone or had urologic procedure related to it. CT abdomen shows a left renal pelvis 30 mm nonobstructive calculus with mild left hydronephrosis. Additional punctate bilateral nonobstructing renal calculi. Denies abdominal pain. No renal/flank tenderness on exam. * Persistent hypokalemia: Hypokalemia for last 2 days despite IV KCl replacement. Serum magnesium normal. Mild hypophosphatemia. IV potassium phosphate ordered. Oral K. Dur. Monitor electrolytes DVT prophylaxis: On Eliquis. Transfer to PCU. Charges/Coding Visit Charges Inpatient E&M: 83567 Subs Hosp L2
[2025-06-29] MEDS: Pantoprazole Sodium 40 MG in 0.9% Normal Saline (100mL MB+) 100 ML 330 MG IV (09:54)
[2025-06-29 10:40] LABS: Hematocrit 41.5 % (37-47); Hemoglobin 13.6 g/dL (12.0-15.0); Mean Corp Hgb Conc 32.8 g/dL (32-36); Mean Corpuscular Volume 94.3 fL (81-99); Mean Platelet Vol. 9.6 fl (6.2-12.0); Platelet Count 356 K/mm3 (150-450); RBC Distribution Width CV 13.8 % (11.6-14.6); RBC Distribution Width SD 47.9 fl (35.1-43.9); Red Blood Count 4.40 M/mm3 (4.2-5.4); White Blood Count 13.9 K/mm3 (4.4-11.0)
[2025-06-29 11:11] LABS: AST(SGOT) 30 U/L (<=31); Alanine Aminotransfer ALT/SGPT 26 U/L (<=34); Albumin, Serum 2.8 g/dL (3.4-4.8); Alkaline Phosphatase 120 U/L (35-104); Anion Gap 12 (5-15); BUN 22 mg/dL (4-19); BUN/Creat Ratio 43.5 RATIO (10-20); Calcium,Total 8.7 mg/dL (7.6-11.0); Carbon Dioxide 25.6 mmol/L (21.0-32.0); Chloride 100 mmol/L (98-108); Estimated Creatinine Clearance 54.54 ml/min (50-250); Globulin 3.4 g/dL (2.2-4.2); Glucose 240 mg/dL (70-99); Potassium 3.7 mmol/L (3.3-5.1)
--- NOTE | 2025-06-29 14:46 | CASEMGMT ---
KAT CM to the pt's room to follow up on DC planning. Pt states that she feels like she needs additional rehab after she is DC'd from the acute floor. At this time, the pt adamantly denies any SNF other than [facility]. Pt states that if TCU is unable to accept, she will go home. Pt states that she would be open to skilled HHC. Pt was offered a list of local in-network HHC Agencies. Pt declines and states that she would prefer [facility] if TCU were to decline. CM to follow for oxygen needs as well. CM to make referral to [facility]CU once appropriate. Pt denies further questions or concerns.
[2025-06-29] MEDS: APIXABAN 5 MG TABLET PO (21:58)
[2025-06-30] VITALS (15 sets, daily range): BP systolic 98–149; BP diastolic 58–85; PULSE 58–93; RESP 17–27; TEMP 36.3–36.9; O2SAT 91–99; BMI 21.8
[2025-06-30] MEDS: Lactobacillis Acidophilus 1 CAP PO ×3 (06:14→21:04)
[2025-06-30] MEDS: Acetylcysteine 800 MG/4 ML VIAL.NEB. INHALATION ×3 (06:55→19:20)
--- NOTE | 2025-06-30 07:26 | PCM.PN.INT ---
Assessment & Plan Assessment/Plan (1) Pneumonia: (2) Respiratory failure: PLAN: Plan RECOMMENDATIONS: 1. Continue antimicrobials. 2. Decrease Solu-Medrol to once daily. 3. Continue to wean supplemental oxygen to maintain saturations at or above 90%. 4. Eliquis per home regimen. 5. Encourage incentive spirometer use and mobilize patient as tolerated. 6. Continue diuresis as tolerated by hemodynamics and renal function. IMPRESSIONS: 1. Acute hypoxemic respiratory failure most likely secondary to severe community-acquired pneumonia Plan to continue supportive care with supplemental oxygen to maintain saturations at or above 90%. Antimicrobials will be continued to complete 7 days of therapy. Given her hypoxemia, will continue corticosteroids. Encourage incentive spirometer use and mobilize patient as tolerated. Unfortunately, the patient was not tolerant of an attempt at BiPAP therapy. She does have objective findings concerning for possible sleep disordered breathing. Will continue ongoing attempts at gentle diuresis as tolerated by hemodynamics and renal function. 2. History of paroxysmal atrial fibrillation history of paroxysmal atrial fibrillation Complicates care, management, recovery and prognosis. Continue home medications as indicated. This note was generated with Nor1 dictation software. It may contain incorrect words, spelling, and punctuation that were not noted in checking the note before signing. Subjective Subjective The patient was seen and examined at the bedside this morning. Events from the last 24 hours have been reviewed. The patient is currently afebrile, hemodynamically stable and maintaining appropriate oxygen saturations on 6 L/min via nasal cannula. The patient remains overall net +12 L for the hospitalization. Creatinine is stable at 0.60. The patient has been tolerant of diuresis. Objective Data Objective Data The patient's most recent lab work, culture data and imaging studies have all been personally reviewed. Sputum culture has not demonstrated any growth to date. Vital Signs: Vital Signs Temp Pulse Resp BP Pulse Ox O2 Del Method O2 Flow Rate 98.2 F 73 24 H 98/67 97 Nasal Cannula 6 06/30/25 07:00 06/30/25 07:00 06/30/25 07:00 06/30/25 07:00 06/30/25 07:00 06/30/25 07:00 06/30/25 07:00 FiO2 60 06/29/25 08:00 Oxygen Flow Rate (L/min) 6 Oxygen Delivery Method Nasal Cannula Weight: 139 lb 8.842 oz Body Mass Index (BMI) 21.8 Intake & Output: Intake and Output for Last 24 Hours 06/28/25 06/29/25 06/30/25 23:59 23:59 23:59 Intake Total 888.13 / 888.13 150 / 270 180 / 180 Output Total 650 / 650 Balance 238.13 / 238.13 150 / 270 180 / 180 Lab / Micro Data Attestation: I reviewed the patient's lab results. 06/29/25 10:20 06/30/25 10:55 Labs: Laboratory Results - last 24 hr 06/29/25 10:20: WBC 13.9 H, RBC 4.40, Hgb 13.6, Hct 41.5, MCV 94.3, MCH 30.9, MCHC 32.8, RDW Std Deviation 47.9 H, RDW Coeff of Hilda 13.8, Plt Count 356, MPV 9.6, Sodium 138, Potassium 3.7, Chloride 100, Carbon Dioxide 25.6, Anion Gap 12, BUN 22 H, Creatinine 0.51 L, Estim Creat Clear Calc 54.54, Est GFR (MDRD) Non-Af 94, BUN/Creatinine Ratio 43.5 H, Glucose 240 H, Calcium 8.7, Total Bilirubin 0.54, AST 30, ALT 26, Alkaline Phosphatase 120 H, Total Protein 6.2, Albumin 2.8 L, Globulin 3.4, Albumin/Globulin Ratio 0.8 L Micro: Microbiology 06/22/25 14:41 Blood Culture (Wb) - Anticubital Right Blood Culture - Final Coag Negative Staph 06/22/25 14:41 Blood Culture (Wb) - Anticubital Left Blood Culture - Final No growth in 5 days. 06/26/25 09:40 Stool Enteric Bacteriology - Final 06/26/25 09:40 Stool Stool Lactoferrin - Final 06/26/25 09:40 Stool Stool Occult Blood (ALYSON) - Final Occult Blood Positive 06/26/25 09:40 Stool Clostridioides difficile (PCR) - Final 06/22/25 15:36 Urine Catheter - Catheter Urine Culture - Final Escherichia coli Gemella morbillorum Staphylococcus capitis Streptococcus mitis/ oralis 06/23/25 12:15 Sputum, Expectorated/Coughed Gram Stain - Final 06/23/25 12:15 Sputum, Expectorated/Coughed Respiratory Culture - Final Mixed normal respiratory mark. No Streptococcus pneumoniae, beta-hemolytic Streptococcus or Staphylococcus aureus isolated. 06/23/25 10:13 Nasal Secretion MRSA (PCR) - Final 06/23/25 08:43 Urine Catheter - Catheter Legionella Antigen - Final 06/23/25 08:43 Urine Catheter - Catheter Streptococcus pneumoniae Antigen (M - Final 06/22/25 18:40 Mucosa - Nose Respiratory Panel (PCR) - Final 06/22/25 15:36 Mucosa - Nose SARS-CoV-2, Influenza & RSV (PCR) - Final Physical Exam Const alert, oriented x3 and no apparent distress General Appearance: cooperative HEENT normocephalic, head/scalp atraumatic and moist oral mucous membranes Eyes PERRL, EOMs intact bilaterally and conjunctivae normal Neck supple General: trachea midline Chest inspection of chest normal Resp normal respiratory effort and no use of accessory muscles Effort and Inspection: able to speak in complete sentences Auscultation: Negative for rales, rhonchi or wheezes Cardio regular rate and regular rhythm GI normal to inspection, nondistended, normoactive bowel sounds Extremity no clubbing, cyanosis or edema Skin no rashes or lesions noted Neuro CN's II-XII intact bilaterally, moves all extremities and no focal motor deficits Psych cooperative and affect normal Charges/Coding Visit Charges Inpatient E&M: 34967 Subs Hosp L2
--- NOTE | 2025-06-30 07:47 | PN.HOSP_ITS ---
Reason for Visit Chief Complaint: Shortness of breath, urinary frequency Subjective Subjective Breathing better. Still on 6 liters/NC Objective Data Objective Data Vital Signs: Vital Signs Temp Pulse Resp BP Pulse Ox O2 Del Method O2 Flow Rate 36.8 C 93 27 H 122/63 H 95 Nasal Cannula 6 06/30/25 07:00 06/30/25 07:00 06/30/25 07:00 06/30/25 07:00 06/30/25 07:00 06/30/25 07:00 06/30/25 07:00 FiO2 60 06/29/25 08:00 Oxygen Flow Rate (L/min) 6 Oxygen Delivery Method Nasal Cannula Weight: 63.3 kg Body Mass Index (BMI) 21.8 Intake & Output: Intake and Output for Last 24 Hours 06/28/25 06/29/25 06/30/25 23:59 23:59 23:59 Intake Total 888.13 / 888.13 150 / 270 180 / 180 Output Total 650 / 650 Balance 238.13 / 238.13 150 / 270 180 / 180 Lab / Micro Data 06/29/25 10:20 06/30/25 10:55 Labs: Laboratory Results - last 24 hr 06/29/25 10:20: WBC 13.9 H, RBC 4.40, Hgb 13.6, Hct 41.5, MCV 94.3, MCH 30.9, MCHC 32.8, RDW Std Deviation 47.9 H, RDW Coeff of Hilda 13.8, Plt Count 356, MPV 9.6, Sodium 138, Potassium 3.7, Chloride 100, Carbon Dioxide 25.6, Anion Gap 12, BUN 22 H, Creatinine 0.51 L, Estim Creat Clear Calc 54.54, Est GFR (MDRD) Non-Af 94, BUN/Creatinine Ratio 43.5 H, Glucose 240 H, Calcium 8.7, Total Bilirubin 0.54, AST 30, ALT 26, Alkaline Phosphatase 120 H, Total Protein 6.2, Albumin 2.8 L, Globulin 3.4, Albumin/Globulin Ratio 0.8 L Micro: Microbiology 06/22/25 14:41 Blood Culture (Wb) - Anticubital Right Blood Culture - Final Coag Negative Staph 06/22/25 14:41 Blood Culture (Wb) - Anticubital Left Blood Culture - Final No growth in 5 days. 06/26/25 09:40 Stool Enteric Bacteriology - Final 06/26/25 09:40 Stool Stool Lactoferrin - Final 06/26/25 09:40 Stool Stool Occult Blood (ALYSON) - Final Occult Blood Positive 06/26/25 09:40 Stool Clostridioides difficile (PCR) - Final 06/22/25 15:36 Urine Catheter - Catheter Urine Culture - Final Escherichia coli Gemella morbillorum Staphylococcus capitis Streptococcus mitis/ oralis 06/23/25 12:15 Sputum, Expectorated/Coughed Gram Stain - Final 06/23/25 12:15 Sputum, Expectorated/Coughed Respiratory Culture - Final Mixed normal respiratory mark. No Streptococcus pneumoniae, beta-hemolytic Streptococcus or Staphylococcus aureus isolated. 06/23/25 10:13 Nasal Secretion MRSA (PCR) - Final 06/23/25 08:43 Urine Catheter - Catheter Legionella Antigen - Final 06/23/25 08:43 Urine Catheter - Catheter Streptococcus pneumoniae Antigen (M - Final 06/22/25 18:40 Mucosa - Nose Respiratory Panel (PCR) - Final 06/22/25 15:36 Mucosa - Nose SARS-CoV-2, Influenza & RSV (PCR) - Final Physical Exam Const alert and no apparent distress HEENT head/scalp atraumatic and moist oral mucous membranes Resp normal respiratory effort Resp Narrative: bibasilar crackles Cardio regular rate, regular rhythm, S1 normal heart sound and S2 normal heart sound GI normal to inspection, nondistended, normoactive bowel sounds, soft to palpation, non-tender and non-distended Neuro Sensorium / Orientation: awake and alert Psych affect normal Assessment & Plan Assessment/Plan (1) Pneumonia: (2) Respiratory failure: PLAN: Plan Acute hypoxic respiratory failure due to extensive bilateral multifocal Pneumonia: * Currently on the Airvo. Was found 60% on room air in ER and does not use home oxygen. Patient admitted with leukocytosis 22.7 K with immature granulocytes 3.4%, predominantly neutrophil 86%, lymphopenia 3.9%. Leukocytosis improving. Respiratory panel negative. Triple PCR for SARS-CoV-2, flu and RSV are negative. Initially started on levofloxacin but antibiotic broadened to include vancomycin and Zosyn. Chest CTA shows extensive bilateral multifocal pneumonia and presumed reactive mediastinal and hilar lymphadenopathy. Some component of pulmonary edema and trace bilateral pleural effusion * 06/24: Still on Airvo. ABG near normal with pCO2 38.7. Pulmonary review whether needs to change NIPPV * 06/25: Intermittent BiPAP to decrease respiratory work of breathing. Pulmonary hygiene. Repeat chest x-ray shows improved. Continue aeration left base. Hazy opacity persist within both lungs suggestive of infiltrate/pneumonia. 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 * 06/26: Slow/gradual improvement. Furosemide 40 mL IV 1 dose ordered. On 65% FiO2 on Airvo. On IV hydrocortisone. Improvement in leukocytosis * 06/27: Improving on Airvo. Plan to taper off the Airvo. Intermittent/rescue BiPAP. * 06/28: Airvo 50% FiO2, oxygenation seems improving. Increased pulmonary hygiene and mobilization * 06/29: CTX, methylprednisolone, Weaned down to 6 liters NC. On furosemide challenge. On acetylcysteine. * 06/30: still on 6 L NC. Furosemide 40 IV BID. methypred 40/d. IV CTX. Multifocal bilateral pneumonia * due to suspected pneumococcal pneumonia * 06/24 on broad-spectrum IV antibiotic.06/26: Sputum culture shows mixed normal respiratory mark. Urine culture growing 4 organisms, contamination.06/27: Stool for C. difficile negative. Enteric bacterial GI panel negative. Occult blood positive. * 06/28: Narrowed down antibiotic to IV ceftriaxone. Zosyn discontinued. Patient had 5 days of IV Zosyn. Cultures so far negative. One of the blood cultures, anaerobic bottle grew [employer], coagulase-negative staph and other blood culture negative therefore it is contamination Chronic conditions: * Paroxysmal atrial fibrillation-: On the monitor patient is sinus rhythm. Eliquis 5 mg p.o. twice daily [id number]: Currently sinus rhythm with discernible P waves. Rate is controlled. on amiodarone. * Left renal pelvis nonobstructive calculus with mild left hydronephrosis: Patient did not know about the kidney stone prior to admission. Obviously did not pass the stone or had urologic procedure related to it. CT abdomen shows a left renal pelvis 30 mm nonobstructive calculus with mild left hydronephrosis. Additional punctate bilateral nonobstructing renal calculi. Denies abdominal pain. No renal/flank tenderness on exam. * Persistent hypokalemia: Hypokalemia for last 2 days despite IV KCl replacement. Serum magnesium normal. Mild hypophosphatemia. IV potassium phosphate ordered. Oral K. Dur. Monitor electrolytes DVT prophylaxis: On Eliquis. Charges/Coding Visit Charges Inpatient E&M: 93425 Subs Hosp L2
[2025-06-30] MEDS: APIXABAN 5 MG TABLET PO ×2 (08:51→21:05)
[2025-06-30] MEDS: 0.9% Saline Lock 10 ML Syringe IV ×2 (08:52→17:36)
[2025-06-30] MEDS: Pantoprazole Sodium 40 MG in 0.9% Normal Saline (100mL MB+) 100 ML 330 MG IV (08:52)
--- NOTE | 2025-06-30 09:54 | CASEMGMT ---
Addendum entered by Tab Herrera 06/30/25 15:20: See PT progress notes from today. This RN CM collaborated with the hospitalist who anticipates that the pt will be able to DC in 2-3 days from now. RN CM to the pt's room at this time. Pt's RN at the bedside. Pt states that she still prefers [facility]CU at the time of DC. Pt states that she does not feel safe going home alone with her current oxygen demands. Informed the pt that CM will make the referral once it is appropriate. Pt states understanding and denies further questions or concerns at this time. Original Note: Per ICU rounds, pt's oxygen needs have been improving. PT plans to complete a full evaluation today to help determine pt's DC needs. Pt still states that if TCU declines that she would want to go home with [facility]. CM to make referral to TCU once appropriate.
[2025-06-30 11:29] LABS: Anion Gap 14 (5-15); BUN 30 mg/dL (4-19); BUN/Creat Ratio 49.2 RATIO (10-20); Calcium,Total 8.5 mg/dL (7.6-11.0); Carbon Dioxide 29.7 mmol/L (21.0-32.0); Chloride 94 mmol/L (98-108); Estimated Creatinine Clearance 54.54 ml/min (50-250); Glucose 271 mg/dL (70-99); Potassium 3.4 mmol/L (3.3-5.1)
[2025-07-01] VITALS (14 sets, daily range): BP systolic 109–143; BP diastolic 65–82; PULSE 65–90; RESP 14–20; TEMP 36.2–36.9; O2SAT 91–100; BMI 22.1; BMI 21.4
--- NOTE | 2025-07-01 01:59 | EKG12_ITS ---
Test Reason : A-fib Blood Pressure : */* mmHG Vent. Rate : 71 BPM Atrial Rate : 71 BPM P-R Int : 172 ms QRS Dur : 168 ms QT Int : 468 ms P-R-T Axes : 78 43 16 degrees QTcB Int : 508 ms Sinus rhythm with Premature atrial complexes Right bundle branch block Abnormal ECG Confirmed by RON ROMERO, JOSE ENRIQUE ([id number]), acquisition editor GENARO LUI ([id number]) on 07/02/2025 6:36:25 AM Referred By: Arvin Confirmed By: JOSE ENRIQUE VELASQUEZ MD
--- NOTE | 2025-07-01 02:32 | NUR.TO.PHY ---
0200 patient went into Afib after using the bedside commode. an EKG was obtained however the patient had converted back to sinus rhythm before the EKG completed. on unit and obsereved the patient converting from Afib to Sinus.
[2025-07-01 05:29] LABS: Hematocrit 39.7 % (37-47); Hemoglobin 13.1 g/dL (12.0-15.0); Immature Granulocytes Count 0.150 X10^3/uL (0.0-0.0); Mean Corp Hgb Conc 33.0 g/dL (32-36); Mean Corpuscular Volume 92.5 fL (81-99); Mean Platelet Vol. 9.8 fl (6.2-12.0); NRBC Flagged by Analyzer 0 % (0-5); Platelet Count 315 K/mm3 (150-450); RBC Distribution Width CV 13.9 % (11.6-14.6); RBC Distribution Width SD 47.5 fl (35.1-43.9); Red Blood Count 4.29 M/mm3 (4.2-5.4); White Blood Count 16.4 K/mm3 (4.4-11.0)
[2025-07-01 05:58] LABS: Anion Gap 8 (5-15); BUN 25 mg/dL (4-19); BUN/Creat Ratio 49.2 RATIO (10-20); Calcium,Total 9.2 mg/dL (7.6-11.0); Carbon Dioxide 36.4 mmol/L (21.0-32.0); Chloride 90 mmol/L (98-108); Estimated Creatinine Clearance 54.54 ml/min (50-250); Glucose 107 mg/dL (70-99); Potassium 3.4 mmol/L (3.3-5.1)
[2025-07-01] MEDS: Lactobacillis Acidophilus 1 CAP PO ×3 (06:14→22:28)
[2025-07-01] MEDS: 0.9% Saline Lock 10 ML Syringe IV (06:14)
--- NOTE | 2025-07-01 07:01 | PN.HOSP_ITS ---
Reason for Visit Chief Complaint: Shortness of breath, urinary frequency Subjective Subjective Breathing better. Oxygen able to be weaned to 3 liters. Objective Data Objective Data Vital Signs: Vital Signs Temp Pulse Resp BP Pulse Ox O2 Del Method O2 Flow Rate 36.4 C L 73 18 124/74 H 94 Nasal Cannula 4 07/01/25 05:00 07/01/25 05:00 07/01/25 05:00 07/01/25 05:00 07/01/25 05:00 07/01/25 05:00 07/01/25 05:00 FiO2 60 06/29/25 08:00 Oxygen Flow Rate (L/min) 4 Oxygen Delivery Method Nasal Cannula Weight: 63.957 kg Body Mass Index (BMI) 22.1 Intake & Output: Intake and Output for Last 24 Hours 06/29/25 06/30/25 07/01/25 23:59 23:59 23:59 Intake Total 150 / 270 1050 / 1110 120 / 120 Output Total 1300 / 1300 Balance 150 / 270 1050 / 810 -1180 / -1180 Lab / Micro Data 07/01/25 05:00 07/01/25 05:00 Labs: Laboratory Results - last 24 hr 06/30/25 10:55: Sodium 138, Potassium 3.4, Chloride 94 L, Carbon Dioxide 29.7, Anion Gap 14, BUN 30 H, Creatinine 0.60 L, Estim Creat Clear Calc 54.54, Est GFR (MDRD) Non-Af 91, BUN/Creatinine Ratio 49.2 H, Glucose 271 H, Calcium 8.5 07/01/25 05:00: WBC 16.4 H, RBC 4.29, Hgb 13.1, Hct 39.7, MCV 92.5, MCH 30.5, MCHC 33.0, RDW Std Deviation 47.5 H, RDW Coeff of Hilda 13.9, Plt Count 315, MPV 9.8, Immature Gran % (Auto) 0.900, Neut % (Auto) 82.0 H, Lymph % (Auto) 11.3 L, [place] % (Auto) 5.5, Eos % (Auto) 0.1, Baso % (Auto) 0.2, Absolute Neuts (auto) 13.4 H, Absolute Lymphs (auto) 1.85, Nucleated RBC % 0, Sodium 135, Potassium 3.4, Chloride 90 L, Carbon Dioxide 36.4 H, Anion Gap 8, BUN 25 H, Creatinine 0.52 L, Estim Creat Clear Calc 54.54, Est GFR (MDRD) Non-Af 94, BUN/Creatinine Ratio 49.2 H, Glucose 107 H, Calcium 9.2 Micro: Microbiology 06/28/25 18:10 Urine, Clean Catch Urine Culture - Preliminary Culture exhibits no growth. 06/22/25 14:41 Blood Culture (Wb) - Anticubital Right Blood Culture - Final Coag Negative Staph 06/22/25 14:41 Blood Culture (Wb) - Anticubital Left Blood Culture - Final No growth in 5 days. 06/26/25 09:40 Stool Enteric Bacteriology - Final 06/26/25 09:40 Stool Stool Lactoferrin - Final 06/26/25 09:40 Stool Stool Occult Blood (ALYSON) - Final Occult Blood Positive 06/26/25 09:40 Stool Clostridioides difficile (PCR) - Final 06/22/25 15:36 Urine Catheter - Catheter Urine Culture - Final Escherichia coli Gemella morbillorum Staphylococcus capitis Streptococcus mitis/ oralis 06/23/25 12:15 Sputum, Expectorated/Coughed Gram Stain - Final 06/23/25 12:15 Sputum, Expectorated/Coughed Respiratory Culture - Final Mixed normal respiratory mark. No Streptococcus pneumoniae, beta-hemolytic Streptococcus or Staphylococcus aureus isolated. 06/23/25 10:13 Nasal Secretion MRSA (PCR) - Final 06/23/25 08:43 Urine Catheter - Catheter Legionella Antigen - Final 06/23/25 08:43 Urine Catheter - Catheter Streptococcus pneumoniae Antigen (M - Final 06/22/25 18:40 Mucosa - Nose Respiratory Panel (PCR) - Final 06/22/25 15:36 Mucosa - Nose SARS-CoV-2, Influenza & RSV (PCR) - Final Physical Exam Const alert and no apparent distress HEENT head/scalp atraumatic and moist oral mucous membranes Resp normal respiratory effort and no retractions Resp Narrative: bibasilar crackles. Cardio regular rate, regular rhythm and S1 normal heart sound GI normal to inspection, nondistended, normoactive bowel sounds, soft to palpation, non-tender and non-distended Extremity normal to inspection and full ROM Neuro Sensorium / Orientation: awake and alert Assessment & Plan Assessment/Plan (1) Pneumonia: (2) Respiratory failure: PLAN: Plan Acute hypoxic respiratory failure due to extensive bilateral multifocal Pneumonia: * Currently on the Airvo. Was found 60% on room air in ER and does not use home oxygen. Patient admitted with leukocytosis 22.7 K with immature granulocytes 3.4%, predominantly neutrophil 86%, lymphopenia 3.9%. Leukocytosis improving. Respiratory panel negative. Triple PCR for SARS-CoV-2, flu and RSV are negative. Initially started on levofloxacin but antibiotic broadened to include vancomycin and Zosyn. Chest CTA shows extensive bilateral multifocal pneumonia and presumed reactive mediastinal and hilar lymphadenopathy. Some component of pulmonary edema and trace bilateral pleural effusion * 06/24: Still on Airvo. ABG near normal with pCO2 38.7. Pulmonary review whether needs to change NIPPV * 06/25: Intermittent BiPAP to decrease respiratory work of breathing. Pulmonary hygiene. Repeat chest x-ray shows improved. Continue aeration left base. Hazy opacity persist within both lungs suggestive of infiltrate/pneumonia. 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 * 06/26: Slow/gradual improvement. Furosemide 40 mL IV 1 dose ordered. On 65% FiO2 on Airvo. On IV hydrocortisone. Improvement in leukocytosis * 06/27: Improving on Airvo. Plan to taper off the Airvo. Intermittent/rescue BiPAP. * 06/28: Airvo 50% FiO2, oxygenation seems improving. Increased pulmonary hygiene and mobilization * 06/29: CTX, methylprednisolone, Weaned down to 6 liters NC. On furosemide challenge. On acetylcysteine. * 06/30: still on 6 L NC. Furosemide 40 IV BID. methypred 40/d. IV CTX. * 07/01: weaned down to 3 liters. 12 liters positive. Continue diuresis, PEP. Completed abx. Multifocal bilateral pneumonia * due to suspected pneumococcal pneumonia * 06/24 on broad-spectrum IV antibiotic.06/26: Sputum culture shows mixed normal respiratory mark. Urine culture growing 4 organisms, contamination.06/27: Stool for C. difficile negative. Enteric bacterial GI panel negative. Occult blood positive. * 06/28: Narrowed down antibiotic to IV ceftriaxone. Zosyn discontinued. Patient had 5 days of IV Zosyn. Cultures so far negative. 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 Eliquis 5 mg p.o. twice daily [id number]: Currently sinus rhythm with discernible P waves. Rate is controlled. on amiodarone. * Left renal pelvis nonobstructive calculus with mild left hydronephrosis: Patient did not know about the kidney stone prior to admission. Obviously did not pass the stone or had urologic procedure related to it. CT abdomen shows a left renal pelvis 30 mm nonobstructive calculus with mild left hydronephrosis. Additional punctate bilateral nonobstructing renal calculi. Denies abdominal pain. No renal/flank tenderness on exam. * Persistent hypokalemia: Hypokalemia for last 2 days despite IV KCl replacement. Serum magnesium normal. Mild hypophosphatemia. IV potassium phosphate ordered. Oral K. Dur. Monitor electrolytes DVT prophylaxis: On Eliquis. Disposition: TBD. Charges/Coding Visit Charges Inpatient E&M: 47678 Subs Hosp L2
[2025-07-01] MEDS: Acetylcysteine 800 MG/4 ML VIAL.NEB. INHALATION ×2 (07:14→12:27)
--- NOTE | 2025-07-01 07:59 | PN.CC_ITS ---
Assessment & Plan Assessment/Plan (1) Pneumonia: (2) Respiratory failure: PLAN: Plan RECOMMENDATIONS: 1. Antimicrobials to be completed today. 2. Okay to discontinue corticosteroids. 3. Continue to wean supplemental oxygen to maintain saturations at or above 90%. 4. Eliquis per home regimen. 5. Encourage incentive spirometer use and mobilize patient as tolerated. 6. Perform walking oximetry study prior to consideration for discharge home. Anticipate home-going supplemental oxygen need. IMPRESSIONS: 1. Acute hypoxemic respiratory failure most likely secondary to severe community-acquired pneumonia Plan to continue supportive care with supplemental oxygen to maintain saturations at or above 90%. The patient's antibiotic treatment course will be completed today. In addition, given her improving hypoxemia, we will discontinue corticosteroids. Encourage incentive spirometer use and mobilize patient as tolerated. Unfortunately, the patient was not tolerant of an attempt at BiPAP therapy. She does have objective findings concerning for possible sleep disordered breathing. Continue to encourage incentive spirometer use and mobilize patient as tolerated. I do anticipate that the patient will have a home-going supplemental oxygen requirement, while she continues to recover from her illness. 2. History of paroxysmal atrial fibrillation history of paroxysmal atrial fibrillation Complicates care, management, recovery and prognosis. Continue home medications as indicated. This note was generated with [employer] dictation software. It may contain incorrect words, spelling, and punctuation that were not noted in checking the note before signing. Subjective Subjective The patient was seen and examined at the bedside this morning. Events from the last 24 hours have been reviewed. The patient is currently afebrile, hemodynamically stable and maintaining appropriate oxygen saturations on 3 L/min via nasal cannula. The patient has no specific complaints this morning. White blood cell count is elevated at 16,000. Creatinine is within normal limits. Objective Data Objective Data The patient's most recent lab work, culture data and imaging studies have all been personally reviewed. Sputum culture has not demonstrated any growth to date. Vital Signs: Vital Signs Temp Pulse Resp BP Pulse Ox O2 Del Method O2 Flow Rate 97.6 F L 68 20 H 124/74 H 94 Nasal Cannula 3 07/01/25 05:00 07/01/25 07:14 07/01/25 07:14 07/01/25 05:00 07/01/25 07:14 07/01/25 07:14 07/01/25 07:14 FiO2 60 06/29/25 08:00 Oxygen Flow Rate (L/min) 3 Oxygen Delivery Method Nasal Cannula Weight: 141 lb Body Mass Index (BMI) 22.1 Intake & Output: Intake and Output for Last 24 Hours 06/29/25 06/30/25 07/01/25 23:59 23:59 23:59 Intake Total 150 / 270 1050 / 1110 120 / 120 Output Total 1300 / 1300 Balance 150 / 270 1050 / 810 -1180 / -1180 Lab / Micro Data Attestation: I reviewed the patient's lab results. 07/01/25 05:00 07/01/25 05:00 Labs: Laboratory Results - last 24 hr 06/30/25 10:55: Sodium 138, Potassium 3.4, Chloride 94 L, Carbon Dioxide 29.7, Anion Gap 14, BUN 30 H, Creatinine 0.60 L, Estim Creat Clear Calc 54.54, Est GFR (MDRD) Non-Af 91, BUN/Creatinine Ratio 49.2 H, Glucose 271 H, Calcium 8.5 07/01/25 05:00: WBC 16.4 H, RBC 4.29, Hgb 13.1, Hct 39.7, MCV 92.5, MCH 30.5, MCHC 33.0, RDW Std Deviation 47.5 H, RDW Coeff of Hilda 13.9, Plt Count 315, MPV 9.8, Immature Gran % (Auto) 0.900, Neut % (Auto) 82.0 H, Lymph % (Auto) 11.3 L, [place] % (Auto) 5.5, Eos % (Auto) 0.1, Baso % (Auto) 0.2, Absolute Neuts (auto) 13.4 H, Absolute Lymphs (auto) 1.85, Nucleated RBC % 0, Sodium 135, Potassium 3.4, Chloride 90 L, Carbon Dioxide 36.4 H, Anion Gap 8, BUN 25 H, Creatinine 0.52 L, Estim Creat Clear Calc 54.54, Est GFR (MDRD) Non-Af 94, BUN/Creatinine Ratio 49.2 H, Glucose 107 H, Calcium 9.2 Micro: Microbiology 06/28/25 18:10 Urine, Clean Catch Urine Culture - Preliminary Culture exhibits no growth. 06/22/25 14:41 Blood Culture (Wb) - Anticubital Right Blood Culture - Final Coag Negative Staph 06/22/25 14:41 Blood Culture (Wb) - Anticubital Left Blood Culture - Final No growth in 5 days. 06/26/25 09:40 Stool Enteric Bacteriology - Final 06/26/25 09:40 Stool Stool Lactoferrin - Final 06/26/25 09:40 Stool Stool Occult Blood (ALYSON) - Final Occult Blood Positive 06/26/25 09:40 Stool Clostridioides difficile (PCR) - Final 06/22/25 15:36 Urine Catheter - Catheter Urine Culture - Final Escherichia coli Gemella morbillorum Staphylococcus capitis Streptococcus mitis/ oralis 06/23/25 12:15 Sputum, Expectorated/Coughed Gram Stain - Final 06/23/25 12:15 Sputum, Expectorated/Coughed Respiratory Culture - Final Mixed normal respiratory mark. No Streptococcus pneumoniae, beta-hemolytic Streptococcus or Staphylococcus aureus isolated. 06/23/25 10:13 Nasal Secretion MRSA (PCR) - Final 06/23/25 08:43 Urine Catheter - Catheter Legionella Antigen - Final 06/23/25 08:43 Urine Catheter - Catheter Streptococcus pneumoniae Antigen (M - Final 06/22/25 18:40 Mucosa - Nose Respiratory Panel (PCR) - Final 06/22/25 15:36 Mucosa - Nose SARS-CoV-2, Influenza & RSV (PCR) - Final Physical Exam Const alert, oriented x3 and no apparent distress Constitutional Narrative: Sitting in bedside recliner. General Appearance: cooperative HEENT normocephalic, head/scalp atraumatic and moist oral mucous membranes Eyes PERRL, EOMs intact bilaterally and conjunctivae normal Neck supple General: trachea midline Chest inspection of chest normal Resp normal respiratory effort and no use of accessory muscles Effort and Inspection: able to speak in complete sentences Auscultation: Negative for rales, rhonchi or wheezes Cardio regular rate and regular rhythm GI normal to inspection, nondistended, normoactive bowel sounds Extremity no clubbing, cyanosis or edema Skin no rashes or lesions noted Neuro CN's II-XII intact bilaterally, moves all extremities and no focal motor deficits Psych cooperative and affect normal Charges/Coding Visit Charges Inpatient E&M: 76208 Subs Hosp L2
--- NOTE | 2025-07-01 10:03 | CASEMGMT ---
Addendum entered by Tab Herrera 07/01/25 12:27: TCU states that they are able to accept and will submit for precertification through the insurance as the TCU visual merchandising coordinator states that this may take some time to get back. CM to continue to follow. Pt updated and denies further questions or concerns at this time. Addendum entered by Tab Herrera 07/01/25 12:12: PT reports that the pt was able to tolerate 4L with activity, see notes. TCU ur coordinator notified. CM to follow. Addendum entered by Tab Herrera 07/01/25 11:04: TCU states that it is possible that they can accept, but that the pt will need to be able to tolerate 8L or less with exertion. TC to PT and requested they trial the pt during PT today. CM to follow. Original Note: The hospitalist reports that the pt will likely be MR for DC tomorrow vs Sunday. During ICU rounds, pt again states that she prefers TCU at the time of DC and denies a SNF in the community. Pt states that she is still open to HH if TCU declines. Referral sent to TCU ur coordinator at this time. CM to follow.
[2025-07-01] MEDS: APIXABAN 5 MG TABLET PO ×2 (10:24→22:28)
[2025-07-02] VITALS (9 sets, daily range): BP systolic 100–136; BP diastolic 63–76; PULSE 65–80; RESP 16–20; TEMP 36.3–36.8; O2SAT 83–100
[2025-07-02] MEDS: Lactobacillis Acidophilus 1 CAP PO ×2 (06:16→14:54)
[2025-07-02 06:43] LABS: Hematocrit 36.2 % (37-47); Hemoglobin 12.2 g/dL (12.0-15.0); Immature Granulocytes Count 0.130 X10^3/uL (0.0-0.0); Mean Corp Hgb Conc 33.7 g/dL (32-36); Mean Corpuscular Volume 91.4 fL (81-99); Mean Platelet Vol. 9.9 fl (6.2-12.0); NRBC Flagged by Analyzer 0 % (0-5); Platelet Count 279 K/mm3 (150-450); RBC Distribution Width CV 13.8 % (11.6-14.6); RBC Distribution Width SD 47.1 fl (35.1-43.9); Red Blood Count 3.96 M/mm3 (4.2-5.4); White Blood Count 13.6 K/mm3 (4.4-11.0)
[2025-07-02] MEDS: Acetylcysteine 800 MG/4 ML VIAL.NEB. INHALATION (06:48)
[2025-07-02 07:03] LABS: Anion Gap 7 (5-15); BUN 26 mg/dL (4-19); BUN/Creat Ratio 51.2 RATIO (10-20); Calcium,Total 9.1 mg/dL (7.6-11.0); Carbon Dioxide 35.6 mmol/L (21.0-32.0); Chloride 94 mmol/L (98-108); Estimated Creatinine Clearance 54.54 ml/min (50-250); Glucose 107 mg/dL (70-99); Potassium 4.0 mmol/L (3.3-5.1)
--- NOTE | 2025-07-02 07:21 | PCM.PN.HOSP ---
Reason for Visit Chief Complaint: Shortness of breath, urinary frequency Subjective Subjective Breathing better. Objective Data Objective Data Vital Signs: Vital Signs Temp Pulse Resp BP Pulse Ox O2 Del Method O2 Flow Rate 36.8 C 65 20 H 136/67 H 91 Nasal Cannula 4 07/02/25 05:01 07/02/25 06:52 07/02/25 06:52 07/02/25 05:01 07/02/25 06:52 07/02/25 06:52 07/02/25 06:52 FiO2 95 07/01/25 15:00 Oxygen Flow Rate (L/min) 4 Oxygen Delivery Method Nasal Cannula Weight: 62 kg Body Mass Index (BMI) 21.4 Intake & Output: Intake and Output for Last 24 Hours 06/30/25 07/01/25 07/02/25 23:59 23:59 23:59 Intake Total 1050 / 1110 520 / 520 240 / 240 Output Total 1700 / 1700 Balance 1050 / 810 -1180 / -1180 240 / 240 Lab / Micro Data 07/02/25 05:46 07/02/25 05:46 Labs: Laboratory Results - last 24 hr 07/02/25 05:46: WBC 13.6 H, RBC 3.96 L, Hgb 12.2, Hct 36.2 L, MCV 91.4, MCH 30.8, MCHC 33.7, RDW Std Deviation 47.1 H, RDW Coeff of Hilda 13.8, Plt Count 279, MPV 9.9, Immature Gran % (Auto) 1.000 H, Neut % (Auto) 84.1 H, Lymph % (Auto) 9.3 L, [place] % (Auto) 5.4, Eos % (Auto) 0.1, Baso % (Auto) 0.1, Absolute Neuts (auto) 11.4 H, Absolute Lymphs (auto) 1.26, Nucleated RBC % 0, Sodium 137, Potassium 4.0, Chloride 94 L, Carbon Dioxide 35.6 H, Anion Gap 7, BUN 26 H, Creatinine 0.51 L, Estim Creat Clear Calc 54.54, Est GFR (MDRD) Non-Af 94, BUN/Creatinine Ratio 51.2 H, Glucose 107 H, Calcium 9.1 Micro: Microbiology 06/28/25 18:10 Urine, Clean Catch Urine Culture - Final Culture exhibits no growth. 06/22/25 14:41 Blood Culture (Wb) - Anticubital Right Blood Culture - Final Coag Negative Staph 06/22/25 14:41 Blood Culture (Wb) - Anticubital Left Blood Culture - Final No growth in 5 days. 06/26/25 09:40 Stool Enteric Bacteriology - Final 06/26/25 09:40 Stool Stool Lactoferrin - Final 06/26/25 09:40 Stool Stool Occult Blood (ALYSON) - Final Occult Blood Positive 06/26/25 09:40 Stool Clostridioides difficile (PCR) - Final 06/22/25 15:36 Urine Catheter - Catheter Urine Culture - Final Escherichia coli Gemella morbillorum Staphylococcus capitis Streptococcus mitis/ oralis 06/23/25 12:15 Sputum, Expectorated/Coughed Gram Stain - Final 06/23/25 12:15 Sputum, Expectorated/Coughed Respiratory Culture - Final Mixed normal respiratory mark. No Streptococcus pneumoniae, beta-hemolytic Streptococcus or Staphylococcus aureus isolated. 06/23/25 10:13 Nasal Secretion MRSA (PCR) - Final 06/23/25 08:43 Urine Catheter - Catheter Legionella Antigen - Final 06/23/25 08:43 Urine Catheter - Catheter Streptococcus pneumoniae Antigen (M - Final 06/22/25 18:40 Mucosa - Nose Respiratory Panel (PCR) - Final 06/22/25 15:36 Mucosa - Nose SARS-CoV-2, Influenza & RSV (PCR) - Final Physical Exam Const alert and no apparent distress Constitutional Narrative: no respiratory distress. no conversational dyspnea. HEENT head/scalp atraumatic and moist oral mucous membranes Resp normal respiratory effort, no retractions, no use of accessory muscles and clear to auscultation bilaterally Cardio regular rate, regular rhythm, S1 normal heart sound and S2 normal heart sound GI normal to inspection, nondistended, normoactive bowel sounds, soft to palpation, non-tender and non-distended Neuro Sensorium / Orientation: awake and alert Assessment & Plan Assessment/Plan (1) Pneumonia: (2) Respiratory failure: PLAN: Plan Acute hypoxic respiratory failure due to extensive bilateral multifocal Pneumonia: Currently on the Airvo. Was found 60% on room air in ER and does not use home oxygen. Patient admitted with leukocytosis 22.7 K with immature granulocytes 3.4%, predominantly neutrophil 86%, lymphopenia 3.9%. Leukocytosis improving. Respiratory panel negative. Triple PCR for SARS-CoV-2, flu and RSV are negative. Initially started on levofloxacin but antibiotic broadened to include vancomycin and Zosyn. Chest CTA shows extensive bilateral multifocal pneumonia and presumed reactive mediastinal and hilar lymphadenopathy. Some component of pulmonary edema and trace bilateral pleural effusion 06/24: Still on Airvo. ABG near normal with pCO2 38.7. Pulmonary review whether needs to change NIPPV 06/25: Intermittent BiPAP to decrease respiratory work of breathing. Pulmonary hygiene. Repeat chest x-ray shows improved. Continue aeration left base. Hazy opacity persist within both lungs suggestive of infiltrate/pneumonia. 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 06/26: Slow/gradual improvement. Furosemide 40 mL IV 1 dose ordered. On 65% FiO2 on Airvo. On IV hydrocortisone. Improvement in leukocytosis 06/27: Improving on Airvo. Plan to taper off the Airvo. Intermittent/rescue BiPAP. 06/28: Airvo 50% FiO2, oxygenation seems improving. Increased pulmonary hygiene and mobilization 06/29: CTX, methylprednisolone, Weaned down to 6 liters NC. On furosemide challenge. On acetylcysteine. 06/30: still on 6 L NC. Furosemide 40 IV BID. methypred 40/d. IV CTX. 07/01: weaned down to 3 liters. 12 liters positive. Continue diuresis, PEP. Completed abx. 07/02: improved. off abx and furosemide. check home oxygen evaluation. Multifocal bilateral pneumonia due to suspected pneumococcal pneumonia 06/24 on broad-spectrum IV antibiotic.06/26: Sputum culture shows mixed normal respiratory mark. Urine culture growing 4 organisms, contamination.06/27: Stool for C. difficile negative. Enteric bacterial GI panel negative. Occult blood positive. 06/28: Narrowed down antibiotic to IV ceftriaxone. Zosyn discontinued. Patient had 5 days of IV Zosyn. Cultures so far negative. 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 Eliquis 5 mg p.o. twice daily [id number]: Currently sinus rhythm with discernible P waves. Rate is controlled. on amiodarone. Left renal pelvis nonobstructive calculus with mild left hydronephrosis: Patient did not know about the kidney stone prior to admission. Obviously did not pass the stone or had urologic procedure related to it. CT abdomen shows a left renal pelvis 30 mm nonobstructive calculus with mild left hydronephrosis. Additional punctate bilateral nonobstructing renal calculi. Denies abdominal pain. No renal/flank tenderness on exam. Persistent hypokalemia: Hypokalemia for last 2 days despite IV KCl replacement. Serum magnesium normal. Mild hypophosphatemia. IV potassium phosphate ordered. Oral K. Dur. Monitor electrolytes DVT prophylaxis: On Eliquis. Disposition: TBD. Charges/Coding Visit Charges Inpatient E&M: 48503 Subs Hosp L2
[2025-07-02] MEDS: APIXABAN 5 MG TABLET PO (09:40)
--- NOTE | 2025-07-02 09:54 | CASEMGMT ---
Addendum entered by Cehrie Gleason 07/02/25 13:46: [facility] received notification that precert will begin tomorrow. Hospitalist updated. Plan: TCU; skilled level of care [facility] Original Note: Social Work- [facility] provided updates to TCU admissions following rounds with hospitalist. [facility] remains available to follow. [facility] Escobar
--- NOTE | 2025-07-02 13:05 | TREXTCAR_ITS ---
Diet Diet Order/Speech Therapy: INPATIENT Hospital Diet / Speech Therapy Order(s) 06/23/25 16:41 Diet: Regular - No Added Salt Food consistency:: Regular Liquid Consistency:: Regular/Thin Type of Dietary Supplement:: Alvarado Breakfast Diet Comments: 240mL van. CIB with breakfast and dinner; ace magic cup with dinner DC O2, CPAP, BIPAP needs Home O2 Discharge instructions: Yes Type of respiratory needs?: Oxygen Oxygen frequency: At rest and With Ambulation Oxygen liters per minute during Ambulation: 6 Therapies Physical Therapy: Eval and Treat Occupational Therapy: Eval and Treat Problem/Diagnosis (1) Pneumonia: Status: Acute Code(s): J18.9 - Pneumonia, unspecified organism (2) Respiratory failure: Status: Acute Code(s): J96.90 - Respiratory failure, unspecified, unspecified whether with hypoxia or hypercapnia Plan Acute hypoxic respiratory failure due to extensive bilateral multifocal Pneumonia: * Currently on the Airvo. Was found 60% on room air in ER and does not use home oxygen. Patient admitted with leukocytosis 22.7 K with immature granulocytes 3.4%, predominantly neutrophil 86%, lymphopenia 3.9%. Leukocytosis improving. Respiratory panel negative. Triple PCR for SARS-CoV-2, flu and RSV are negative. Initially started on levofloxacin but antibiotic broadened to include vancomycin and Zosyn. Chest CTA shows extensive bilateral multifocal pneumonia and presumed reactive mediastinal and hilar lymphadenopathy. Some component of pulmonary edema and trace bilateral pleural effusion * 06/24: Still on Airvo. ABG near normal with pCO2 38.7. Pulmonary review whether needs to change NIPPV * 06/25: Intermittent BiPAP to decrease respiratory work of breathing. Pulmonary hygiene. Repeat chest x-ray shows improved. Continue aeration left base. Hazy opacity persist within both lungs suggestive of infiltrate/pneumonia. 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 * 06/26: Slow/gradual improvement. Furosemide 40 mL IV 1 dose ordered. On 65% FiO2 on Airvo. On IV hydrocortisone. Improvement in leukocytosis * 06/27: Improving on Airvo. Plan to taper off the Airvo. Intermittent/rescue BiPAP. * 06/28: Airvo 50% FiO2, oxygenation seems improving. Increased pulmonary hygiene and mobilization * 06/29: CTX, methylprednisolone, Weaned down to 6 liters NC. On furosemide challenge. On acetylcysteine. * 06/30: still on 6 L NC. Furosemide 40 IV BID. methypred 40/d. IV CTX. * 07/01: weaned down to 3 liters. 12 liters positive. Continue diuresis, PEP. Completed abx. * 07/02: improved. off abx and furosemide. check home oxygen evaluation. Multifocal bilateral pneumonia * due to suspected pneumococcal pneumonia * 06/24 on broad-spectrum IV antibiotic.06/26: Sputum culture shows mixed normal respiratory mark. Urine culture growing 4 organisms, contamination.06/27: Stool for C. difficile negative. Enteric bacterial GI panel negative. Occult blood positive. * 06/28: Narrowed down antibiotic to IV ceftriaxone. Zosyn discontinued. Patient had 5 days of IV Zosyn. Cultures so far negative. One of the blood cultures, anaerobic bottle grew BACK END DEVELOPER, coagulase-negative staph and other blood culture negative therefore it is contamination Chronic conditions: * Paroxysmal atrial fibrillation-: On the monitor patient is sinus rhythm. Eliquis 5 mg p.o. twice daily [id number]: Currently sinus rhythm with discernible P waves. Rate is controlled. on amiodarone. * Left renal pelvis nonobstructive calculus with mild left hydronephrosis: Patient did not know about the kidney stone prior to admission. Obviously did not pass the stone or had urologic procedure related to it. CT abdomen shows a left renal pelvis 30 mm nonobstructive calculus with mild left hydronephrosis. Additional punctate bilateral nonobstructing renal calculi. Denies abdominal pain. No renal/flank tenderness on exam. * Persistent hypokalemia: Hypokalemia for last 2 days despite IV KCl replacement. Serum magnesium normal. Mild hypophosphatemia. IV potassium phosphate ordered. Oral K. Dur. Monitor electrolytes DVT prophylaxis: On Eliquis. Disposition: TBD. Allergies/Procedures Done in Hospital Allergies Sulfa (Sulfonamide Antibiotics) Allergy (Verified 06/22/25 14:16) doesnt know why doesnt know why Procedures: None Type of Care/Length of Stay Estimated LOS: Convalescent Care Less Than 30 days Type of Care Needed: Skilled Rehab Potential: Good Prognosis: Good Additional Orders/Day of Discharge Day of Discharge: 07/02/25 Dietary and Speech Recommendations Dietitian Recommendations/Changes: Continue regular diet, no added salt diet. Continue ace magic cup with dinner. Continue vanilla carnation breakfast with breakfast and dinner. Will monitor weight trends. Discharge Plan Admission Admit Date/Time: 06/22/25 16:21 Primary Reason for Your Visit: Respiratory failure. pneumonia Attending Provider: Taurus Oliveira Primary Care Provider: Wilson Brizuela Consulting Providers: Wilson Valero; Javon Pearl Discharge Orders/Prescriptions Prescriptions: New alprazolam 0.25 mg Tablet 0.25 mg PO BID PRN (Reason: Anxiety/Agitation) Qty: 4 0RF ipratropium-albuterol 0.5 mg-3 mg(2.5 mg base)/3 mL Solution For Nebulization 3 ml inhalation Q6H.RT Qty: 0 0RF loperamide 2 mg Capsule 2 mg PO Q4H PRN PRN (Reason: DIARRHEA) Qty: 0 0RF lisinopril 10 mg Tablet 10 mg PO DAILY Qty: 0 0RF Continued Eliquis 5 mg tablet 5 mg PO BID Qty: 180 3RF zolpidem 12.5 mg tablet,ext release multiphase 12.5 mg PO QDAY PRN (Reason: insomnia) trazodone 50 mg tablet 50 - 100 mg PO QHS amiodarone 200 mg tablet 200 mg PO DAILY Qty: 90 3RF Discontinued oxycodone 5 mg tablet 5 mg PO Q6H PRN (Reason: pain) 5 Days Qty: 20 0RF Referrals / Follow Up: Wilson Brizuela DO [Primary Care Provider, Family Practice] - Within 2 Weeks Disposition Disposition (needs filled in before D/C Order can be placed): Hospice in Medical Facility
--- NOTE | 2025-07-02 15:06 | CHAPLAIN ---
Type of Pastoral Visit ___ Initial Visit _x__ Follow-up Visit ___ On-call Visit ___ General Patient Visit ___ Spiritual Assessment ___ Family Conference ___ Bereavement ___ Rapid Response ___ Code Blue ___ Other (describe below) Pastoral Care Referral From _x__ Patient ___ Family ___ Nurse ___ Physician ___ Breakfast Attendant ___ Net Manager ___ Other (describe below) Sacrament/Intervention _x__ Active listening ___ Anointing ___ Mu-Ism ___ Bereavement ___ Communion _x__ Jillian exploration ___ _x__ Life review _x__ Prayer ___ Reconciliation ___ Sacrament of Sick ___ Supportive presence ___ Wedding ___ Other (describe below) Pastoral Comments patient is talkative and expressive; pt is encouraged to have progress on her health; pt expects to be moved to another unit for more therapy and strengthening; pt is hopeful about her future but states that if God wants me then I am fine with that; pt talks about her jillian journey and finding Surendra; pt has connected with a different sikhism recently and is very happy with it; prayer welcomed
--- NOTE | 2025-07-02 15:25 | DS.PCM_ITS ---
Providers Date of Admission: 06/22/25 Primary Care Physician: Dr. Wilson Brizuela, Consultations 06/22/25 17:59 Consult: Insulation Worker / Pulmonary Medicine Routine Consulting Provider: Intensivists/Pulmonary Med Reason for Consult: Respiratory failure EMERGENT Consult: No MD Notified: No Date Notified: 06/22/25 Time Notified: 16:53 Reason For Visit: ACUTE HYPOXIC RESPIRATORY FAILURE, PNEUMONIA Diagnosis Discharge Diagnosis (1) Pneumonia: Status: Acute Code(s): J18.9 - Pneumonia, unspecified organism (2) Respiratory failure: Status: Acute Code(s): J96.90 - Respiratory failure, unspecified, unspecified whether with hypoxia or hypercapnia Plan Acute hypoxic respiratory failure due to extensive bilateral multifocal Pneumonia: * Currently on the Airvo. Was found 60% on room air in ER and does not use home oxygen. Patient admitted with leukocytosis 22.7 K with immature granulocytes 3.4%, predominantly neutrophil 86%, lymphopenia 3.9%. Leukocytosis improving. Respiratory panel negative. Triple PCR for SARS-CoV-2, flu and RSV are negative. Initially started on levofloxacin but antibiotic broadened to include vancomycin and Zosyn. Chest CTA shows extensive bilateral multifocal pneumonia and presumed reactive mediastinal and hilar lymphadenopathy. Some component of pulmonary edema and trace bilateral pleural effusion * 06/24: Still on Airvo. ABG near normal with pCO2 38.7. Pulmonary review whether needs to change NIPPV * 06/25: Intermittent BiPAP to decrease respiratory work of breathing. Pulmonary hygiene. Repeat chest x-ray shows improved. Continue aeration left base. Hazy opacity persist within both lungs suggestive of infiltrate/pneumonia. 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 * 06/26: Slow/gradual improvement. Furosemide 40 mL IV 1 dose ordered. On 65% FiO2 on Airvo. On IV hydrocortisone. Improvement in leukocytosis * 06/27: Improving on Airvo. Plan to taper off the Airvo. Intermittent/rescue BiPAP. * 06/28: Airvo 50% FiO2, oxygenation seems improving. Increased pulmonary hygiene and mobilization * 06/29: CTX, methylprednisolone, Weaned down to 6 liters NC. On furosemide challenge. On acetylcysteine. * 06/30: still on 6 L NC. Furosemide 40 IV BID. methypred 40/d. IV CTX. * 07/01: weaned down to 3 liters. 12 liters positive. Continue diuresis, PEP. Completed abx. * 07/02: improved. off abx and furosemide. Home oxygen: patient will require 4 liters with rest and 6 liters with activity. Anticipate slow reocvery. Multifocal bilateral pneumonia * due to suspected pneumococcal pneumonia * 06/24 on broad-spectrum IV antibiotic.06/26: Sputum culture shows mixed normal respiratory mark. Urine culture growing 4 organisms, contamination.06/27: Stool for C. difficile negative. Enteric bacterial GI panel negative. Occult blood positive. * 06/28: Narrowed down antibiotic to IV ceftriaxone. Zosyn discontinued. Patient had 5 days of IV Zosyn. Cultures so far negative. One of the blood cultures, anaerobic bottle grew STONE CARVER, coagulase-negative staph and other blood culture negative therefore it is contamination * Antibiotics completed. Chronic conditions: * Paroxysmal atrial fibrillation-: On the monitor patient is sinus rhythm. Eliquis 5 mg p.o. twice daily [id number]: Currently sinus rhythm with discernible P waves. Rate is controlled. on amiodarone. * Left renal pelvis nonobstructive calculus with mild left hydronephrosis: Patient did not know about the kidney stone prior to admission. Obviously did not pass the stone or had urologic procedure related to it. CT abdomen shows a left renal pelvis 30 mm nonobstructive calculus with mild left hydronephrosis. Additional punctate bilateral nonobstructing renal calculi. Denies abdominal pain. No renal/flank tenderness on exam. * Persistent hypokalemia: Hypokalemia for last 2 days despite IV KCl replacement. Serum magnesium normal. Mild hypophosphatemia. IV potassium phosphate ordered. Oral K. Dur. Monitor electrolytes DVT prophylaxis: On Eliquis. Disposition: to SNF today. Medications at Discharge Home Medications apixaban 5 mg tablet (Eliquis) 5 mg PO BID #180 tabs 09/02/24 zolpidem 12.5 mg tablet,extended release,multiphase 12.5 mg PO QDAY PRN insomnia 03/03/25 amiodarone 200 mg tablet 200 mg PO DAILY #90 tabs 06/01/25 trazodone 50 mg tablet 50 - 100 mg PO QHS 06/22/25 alprazolam 0.25 mg tablet 0.25 mg PO BID PRN Anxiety/Agitation #4 tabs 07/02/25 ipratropium 0.5 mg-albuterol 3 mg (2.5 mg base)/3 mL nebulization soln 3 ml inhalation Q6H.RT #0 mL 07/02/25 lisinopril 10 mg tablet 10 mg PO DAILY #0 tabs 07/02/25 loperamide 2 mg capsule 2 mg PO Q4H PRN PRN DIARRHEA #0 caps 07/02/25 Hospital Course Operations None Procedures None Summary of Care Provided Hospital Course: Greater than 30 minutes spent on discharge. Weight / BMI Weight Weight: 62 kg Body Mass Index (BMI) 21.4 ABG / Lab / Microbiology Data 07/02/25 05:46 07/02/25 05:46 Laboratory: Laboratory Results - last 24 hr 07/02/25 05:46: WBC 13.6 H, RBC 3.96 L, Hgb 12.2, Hct 36.2 L, MCV 91.4, MCH 30.8, MCHC 33.7, RDW Std Deviation 47.1 H, RDW Coeff of Hilda 13.8, Plt Count 279, MPV 9.9, Immature Gran % (Auto) 1.000 H, Neut % (Auto) 84.1 H, Lymph % (Auto) 9.3 L, Riley % (Auto) 5.4, Eos % (Auto) 0.1, Baso % (Auto) 0.1, Absolute Neuts (auto) 11.4 H, Absolute Lymphs (auto) 1.26, Nucleated RBC % 0, Sodium 137, Potassium 4.0, Chloride 94 L, Carbon Dioxide 35.6 H, Anion Gap 7, BUN 26 H, C reatinine 0.51 L, Estim Creat Clear Calc 54.54, Est GFR (MDRD) Non-Af 94, B UN/Creatinine Ratio 51.2 H, Glucose 107 H, Calcium 9.1 Microbiology: Microbiology 06/28/25 18:10 Urine, Clean Catch Urine Culture - Final Culture exhibits no growth. 06/22/25 14:41 Blood Culture (Wb) - Anticubital Right Blood Culture - Final Coag Negative Staph 06/22/25 14:41 Blood Culture (Wb) - Anticubital Left Blood Culture - Final No growth in 5 days. 06/26/25 09:40 Stool Enteric Bacteriology - Final 06/26/25 09:40 Stool Stool Lactoferrin - Final 06/26/25 09:40 Stool Stool Occult Blood (ALYSON) - Final Occult Blood Positive 06/26/25 09:40 Stool Clostridioides difficile (PCR) - Final 06/22/25 15:36 Urine Catheter - Catheter Urine Culture - Final Escherichia coli Gemella morbillorum Staphylococcus capitis Streptococcus mitis/ oralis 06/23/25 12:15 Sputum, Expectorated/Coughed Gram Stain - Final 06/23/25 12:15 Sputum, Expectorated/Coughed Respiratory Culture - Final Mixed normal respiratory mark. No Streptococcus pneumoniae, beta-hemolytic Streptococcus or Staphylococcus aureus isolated. 06/23/25 10:13 Nasal Secretion MRSA (PCR) - Final 06/23/25 08:43 Urine Catheter - Catheter Legionella Antigen - Final 06/23/25 08:43 Urine Catheter - Catheter Streptococcus pneumoniae Antigen (M - Final 06/22/25 18:40 Mucosa - Nose Respiratory Panel (PCR) - Final 06/22/25 15:36 Mucosa - Nose SARS-CoV-2, Influenza & RSV (PCR) - Final D/C Instructions DC O2, CPAP, BIPAP Needs Home O2 Discharge instructions: Yes Type of respiratory needs?: Oxygen Oxygen frequency: At rest and With Ambulation Oxygen liters per minute during Ambulation: 6 DC home with Oxygen: Yes Home O2 MD Review: I have reviewed the oxygen testing, and the patient qualifies for home oxygen equipment and portability. The patient is mobile in the home and the community. Meaningful Use Info Meaningful Use Meaningful Use Diagnoses (Choose all that apply): None applicable Discharge Plan Admission Admit Date/Time: 06/22/25 16:21 Primary Reason for Your Visit: Respiratory failure. pneumonia Attending Provider: Taurus Oliveira Primary Care Provider: Wilson Brizuela Consulting Providers: Wilson Valero; Javon Pearl Discharge Orders/Prescriptions Prescriptions: New alprazolam 0.25 mg Tablet 0.25 mg PO BID PRN (Reason: Anxiety/Agitation) Qty: 4 0RF ipratropium-albuterol 0.5 mg-3 mg(2.5 mg base)/3 mL Solution For Nebulization 3 ml inhalation Q6H.RT Qty: 0 0RF loperamide 2 mg Capsule 2 mg PO Q4H PRN PRN (Reason: DIARRHEA) Qty: 0 0RF lisinopril 10 mg Tablet 10 mg PO DAILY Qty: 0 0RF Continued Eliquis 5 mg tablet 5 mg PO BID Qty: 180 3RF zolpidem 12.5 mg tablet,ext release multiphase 12.5 mg PO QDAY PRN (Reason: insomnia) trazodone 50 mg tablet 50 - 100 mg PO QHS amiodarone 200 mg tablet 200 mg PO DAILY Qty: 90 3RF Discontinued oxycodone 5 mg tablet 5 mg PO Q6H PRN (Reason: pain) 5 Days Qty: 20 0RF Referrals / Follow Up: Wilson Brizuela DO [Primary Care Provider, Family Practice] - Within 2 Weeks Disposition Disposition (needs filled in before D/C Order can be placed): Hospice in Medical Facility Charges/Coding Visit Charges Inpatient E&M: 65915 Disch Hosp >30min
--- NOTE | 2025-07-02 15:28 | PHA.DC.MR.R ---
Pharmacy [place] Med Reconciliation Pharmacy Service has performed discharge medication reconciliation for this patient. The patient's discharge medication list was reviewed for discrepancies and discrepancies were resolved. Medications at Discharge Home Medications apixaban 5 mg tablet (Eliquis) 5 mg PO BID #180 tabs 09/02/24 zolpidem 12.5 mg tablet,extended release,multiphase 12.5 mg PO QDAY PRN insomnia 03/03/25 amiodarone 200 mg tablet 200 mg PO DAILY #90 tabs 06/01/25 trazodone 50 mg tablet 50 - 100 mg PO QHS 06/22/25 alprazolam 0.25 mg tablet 0.25 mg PO BID PRN Anxiety/Agitation #4 tabs 07/02/25 ipratropium 0.5 mg-albuterol 3 mg (2.5 mg base)/3 mL nebulization soln 3 ml inhalation Q6H.RT #0 mL 07/02/25 lisinopril 10 mg tablet 10 mg PO DAILY #0 tabs 07/02/25 loperamide 2 mg capsule 2 mg PO Q4H PRN PRN DIARRHEA #0 caps 07/02/25
--- NOTE | 2025-07-02 15:33 | CASEMGMT ---
Social Work Precert has been obtained.? Physician updated and pt is ready for discharge today. SW met with pt and they are agreeable to discharge plan as stated above.? TCU admissions and bedside nurse notified of discharge. SW called pt son to update. Disposition: [facility] TCU?, skilled level of care under convalescent stay. NEHAL Escobar
--- NOTE | 2025-07-02 15:54 | NURSING ---
called report to TCU, will call PCU back when they are ready for her. No other questions
== END 2025-07-02 16:44 | disposition hospice, inpatient (51) | DRG 189 ==
LOC: ED 16:20 → ICU 17:26 → PCU 07-01 18:26
PROVIDERS: Family Medicine; Internal Medicine; Internal Medicine Critical Care Medicine; Admitting Provider Internal Medicine; Emergency Provider Emergency Medicine; PCP Family Medicine
DX: J96.01 Acute respiratory failure with hypoxia (principal); J13 Pneumonia due to Streptococcus pneumoniae; E87.1 Hypo-osmolality and hyponatremia; I48.0 Paroxysmal atrial fibrillation; E78.5 Hyperlipidemia, unspecified; F41.9 Anxiety disorder, unspecified; E87.6 Hypokalemia; Z79.01 Long term (current) use of anticoagulants; Z90.49 Acquired absence of other specified parts of digestive tract; Z79.899 Other long term (current) drug therapy; R03.0 Elevated blood-pressure reading, without diagnosis of hypertension
CPT/HCPCS: 36415; 36600; 71045; 71275; 74176; 80048; 80053; 81001; 82274; 82803; 83630; 83735; 83880; 84100; 84145; 84484; 85014; 85018; 85025; 85027; 85379; 87040; 87070; 87077; 87086; 87088; 87186; 87205; 87449; 87493; 87506; 87631; 87633; 87641; 88108; 88313; 93005; 94640; 94660; 94668; 94762; 97110; 97116; 97162; 97167; 97530; 97535; 97802; 99285; Q9967; A4216; J1938; J2405

== ENCOUNTER 2025-07-02 16:45 | Inpatient (IN) | payer MEDICARE, SELFPAY ==
[2025-07-02 17:29] VITALS: BP 124/69; PULSE 68; RESP 16; TEMP 36.9; O2SAT 95; BMI 20.3
[2025-07-02 19:35] VITALS: PULSE 72; RESP 18; O2SAT 90
[2025-07-02 19:45] VITALS: PULSE 63; RESP 24; O2SAT 94
--- NOTE | 2025-07-02 20:41 | PCM.HP.STD ---
HPI - General General Date of Admission: 07/02/25 Date of Service: 07/02/25 Chief Complaint: Here for rehabilitation. HPI Narrative SUSAN BURRELL, is a 80 F who presents with followin06/22/2025 [facility] ED shortness of breath, unwell. Unwell for 2 weeks, finished antibiotics for pneumonia 5 days ago. Chest pain with breathing, unable to take deep breath. Pulsox 60% on room air, on Eliquis for atrial fibrillation. Blood cultures sent, oxygen NRB, WBC 22.7, Troponin 20, BTNP 1481. Chest X-ray showed cardiomegaly, congestive heart failure, possible pneumonia. Levaquin IV for pneumonia, urinalysis pending. 06/22/2025 Admit [facility]. AirVO, aerosols for acute respiratory failure with hypoxia. Levaquin IV, urine antigens for strep, legionella, respiratory panel for pneumonia. 06/22/2025 Benadryl 25mg iv x 1 dose for anxiety. 06/23/2025 Mild cough with sputum. Respiratory panel negative, covid negative, flu negative, rsv negative. CTA chest showed bilateral multifocal pneumonia. Vancomycin, Zosyn IV for pneumonia. Left kidney stone, mild left hydronephrosis. 06/24/2025 AirVO FiO2 80%, 60 liters per minute. Vancomycin, Zosyn IV for pneumonia, pulmonary edema reactive. 06/25/2025 AirVO FiO2 85%, BiPAP recommended, Chest X-ray improving. 06/26/2025 AirVO FiO2 65%, Xanax prn anxiety. Furosemide 40mg iv x 1 dose, Hydrocortisone IV, slow improvement. Sputum normal respiratory mark, urine culture contaminated. 06/27/2025 Improving on AirVO, taper off AirVO, rescue BiPAP. Vancomycin, Zosyn IV for pneumonia. C. diff negative, Enteric panel negative, Hemoccult +. K replaced, Phosphorous replaced. 06/28/2025 AirVO FiO2 50%, improving, mild dry cough. Ceftriaxone IV for pneumonia, Zosyn stopped after 5 days. Blood culture contaminated with coagulase negative staph. Lisinopril 10mg daily, Chlorthalidone 25mg daily, Hydralazine prn, Labetalol prn elevated blood pressure. 06/29/2025 Breathing better, failed outpatient Azithromycin. Ceftriaxone, Solu-medrol, oxygen 6 liters nasal cannula, Furosemide, Mucormyst for acute respiratory failure with hypoxia/pneumonia. 06/30/2025 Breathing, better, oxygen 6 liters per nasal cannula. Ceftriaxone, Solu-medrol 40mg/day, Furosemide 40mg iv bid for acute respiratory failure with hypoxia/pneumonia/fluid overload. 07/01/2025 Breathing better, oxygen 3 liters per nasal cannula. 12 liters positive, continue diuresis, PEP, finished antibiotics. 07/02/2025 Admit to TCU with debility, here for rehabilitation, strengthening, prior to discharge home alone. [facility] Medical History Bradycardia Irritant contact dermatitis due to plant SVT (supraventricular tachycardia) Nonrheumatic mitral valve stenosis with insufficiency Premature ventricular contractions HLD (hyperlipidemia) Home Medications ?Medication ?Instructions ?Recorded ?Last Taken ?Type apixaban 5 mg tablet (Eliquis) 5 mg PO BID afib #180 tabs 09/02/24 06/21/25 Rx zolpidem 12.5 mg tablet,extended 12.5 mg PO QDAY PRN insomnia 03/03/25 06/21/25 History release,multiphase amiodarone 200 mg tablet 200 mg PO DAILY afib #90 tabs 06/01/25 06/21/25 Rx trazodone 50 mg tablet 50 - 100 mg PO QHS sleep 06/22/25 06/21/25 History alprazolam 0.25 mg tablet 0.25 mg PO BID PRN 07/02/25 Unknown Rx Anxiety/Agitation #4 tabs ipratropium 0.5 mg-albuterol 3 mg 3 ml inhalation Q6H.RT lungs #0 mL 07/02/25 Unknown Rx (2.5 mg base)/3 mL nebulization soln lisinopril 10 mg tablet 10 mg PO DAILY BP #0 tabs 07/02/25 Unknown Rx loperamide 2 mg capsule 2 mg PO Q4H PRN PRN DIARRHEA #0 07/02/25 Unknown Rx caps Allergy/AdvReac Type Severity Reaction Status Date / Time Sulfa (Sulfonamide Allergy doesnt Verified 06/22/25 14:16 Antibiotics) know why Surgical History S/P trigger finger release Hx of shoulder surgery History of bladder suspension procedure Social History (Updated 07/02/25 @ 20:[address] Gilbert Michael MD) household members: none Smoking Status: Never smoker alcohol intake: never substance use type: does not use caffeine: Yes Type: coffee Number of servings: 1 ROS Constitutional Constitutional: Reports weakness; Denies chills, fever(s) or weight gain ENT HEENT: Denies headache(s), nasal congestion or nasal discharge Cardiovascular Cardiovascular: Denies chest pain or palpitations Respiratory/Chest Respiratory/Chest: Reports cough, dyspnea on exertion and shortness of breath with exertion; Denies excessive phlegm production Gastrointestinal Gastrointestinal: Denies abdominal pain, nausea or vomiting Genitourinary Genitourinary: Denies dysuria Musculoskeletal Musculoskeletal: Denies joint pain or joint swelling Integumentary Integumentary: Denies rash or wounds Neurologic Neurologic: Denies focal weakness, numbness or tingling Psychiatric Psychiatric: Denies anxiety, auditory hallucinations, depression, homicidal ideation or suicidal ideation Vital Signs Vital Signs Vital Signs: 07/02/25 17:29 Temperature 98.5 F Temperature Source Oral Pulse Rate 68 Respiratory Rate 16 Blood Pressure 124/69 H Blood Pressure Mean 87 Blood Pressure Source Monitor Blood Pressure Position Sitting Blood Pressure Location Left Arm Pulse Ox 95 Oxygen Delivery Method Nasal Cannula Oxygen Flow Rate (L/min) 6 Weight Weight: 58.967 kg Body Mass Index (BMI) 20.3 Physical Exam Const alert General Appearance: cooperative HEENT normocephalic Eyes PERRL and EOMs intact bilaterally Neck supple, no JVD and no carotid bruits Resp normal respiratory effort and normal air movement Auscultation: rhonchi and wheezes Cardio regular rate and regular rhythm GI normal to inspection, nondistended, normoactive bowel sounds, non-tender and non-distended Extremity normal capillary refill General Extremity: Negative for edema Skin no rashes or lesions noted General Skin Exam: no breakdown Psych affect normal Appearance: appropriate Assessment & Plan Assessment/Plan (1) Debility: (2) Acute respiratory failure with hypoxia: (3) Pneumonia: (4) Fluid overload: (5) Left renal stone: (6) Hydronephrosis of left kidney: (7) Atrial fibrillation: QUALIFIERS: Atrial fibrillation type: paroxysmal Qualified Code(s): I48.0 - Paroxysmal atrial fibrillation (8) Insomnia: PLAN: Plan 80 year old female with below past medical history hospitalized for acute respiratory failure with hypoxia 2/2 pneumonia, complicated by fluid overload, left kidney stone, left hydronephrosis, admitted to TCU with debility, here for rehabilitation, strengthening, prior to discharge home alone. Debility - PT/OT. Pain - Tylenol 1000mg q6 prn pain (1-10). Bowel - senna/colace 1 tablet bid, Magnesium citrate 300mL daily prn. Adult immunization - Administer pneumonia vaccine, covid vaccine, flu vaccine as appropriate. DVT prophylaxis - Eliquis. Atrial fibrillation- Amiodarone 200mg daily, Eliquis 5mg bid. Acute respiratory failure with hypoxia - Duoneb 3mL q6, oxygen 6 liters NC, wean as tolerated, schedule pulmonary consultation to consider amiodarone toxicity. Hypertension - Lisinopril 10mg daily. The following psychotropic medication was present on admission: Xanax 0.25mg bid prn. Psychotropic medication therapy is indicated for a diagnosis of: Anxiety. Based on my clinical evaluation, continuation of the medication is necessary at this time. Gradual dose reduction plan (select one): ____ GDR will be attempted. Will monitor patient symptoms and behaviors in response to GDR. __x__ GRD contraindicated. Reason contraindicated: stable chronic chcf use. The following psychotropic medication was present on admission: Trazodone 50mg to 100mg qhs. Psychotropic medication therapy is indicated for a diagnosis of: Insomnia. Based on my clinical evaluation, continuation of the medication is necessary at this time. Gradual dose reduction plan (select one): ____ GDR will be attempted. Will monitor patient symptoms and behaviors in response to GDR. __x__ GRD contraindicated. Reason contraindicated: stable chronic chcf use. The following psychotropic medication was present on admission: Zolpidem 5mg qhs prn. Psychotropic medication therapy is indicated for a diagnosis of: Insomnia. Based on my clinical evaluation, continuation of the medication is necessary at this time. Gradual dose reduction plan (select one): ____ GDR will be attempted. Will monitor patient symptoms and behaviors in response to GDR. __x__ GRD contraindicated. Reason contraindicated: stable chronic chcf use.
[2025-07-02] MEDS: APIXABAN 5 MG TABLET PO (22:19)
[2025-07-02] MEDS: 0.9% Saline Lock 10 ML Syringe IV ×2 (22:20→22:32)
[2025-07-03 06:09] LABS: Hematocrit 37.2 % (37-47); Hemoglobin 11.9 g/dL (12.0-15.0); Immature Granulocytes Count 0.160 X10^3/uL (0.0-0.0); Mean Corp Hgb Conc 32.0 g/dL (32-36); Mean Corpuscular Volume 93.7 fL (81-99); Mean Platelet Vol. 10.5 fl (6.2-12.0); NRBC Flagged by Analyzer 0 % (0-5); Platelet Count 272 K/mm3 (150-450); RBC Distribution Width CV 14.0 % (11.6-14.6); RBC Distribution Width SD 48.6 fl (35.1-43.9); Red Blood Count 3.97 M/mm3 (4.2-5.4); White Blood Count 12.2 K/mm3 (4.4-11.0)
[2025-07-03 06:37] LABS: Anion Gap 7 (5-15); BUN 26 mg/dL (4-19); BUN/Creat Ratio 45.1 RATIO (10-20); Calcium,Total 8.8 mg/dL (7.6-11.0); Carbon Dioxide 33.8 mmol/L (21.0-32.0); Chloride 96 mmol/L (98-108); Estimated Creatinine Clearance 52.21 ml/min (50-250); Glucose 83 mg/dL (70-99); Potassium 4.5 mmol/L (3.3-5.1)
[2025-07-03 07:00] VITALS: PULSE 77; RESP 19
--- NOTE | 2025-07-03 09:06 | MDS.RN ---
MDS Entry Tracker completed, Pain assessed.
[2025-07-03] MEDS: APIXABAN 5 MG TABLET PO (09:14)
[2025-07-03] MEDS: Tuberculin,Purif.prot.deriv. 50 TU/ML Vial 0.1 ML ID (09:15)
--- NOTE | 2025-07-03 09:44 | PHA.CONS_ITS ---
Documented by User: Adam Kirkland 07/03/25 10:23 TCU RX Drug Regimen Review Subjective/Objective Subjective/Objective Subjective: TCU Admission. 80 year old female hospitalized for acute respiratory failure with hypoxia 2/2 pneumonia, complicated by fluid overload, left kidney stone, left hydronephrosis, admitted to TCU with debility, here for rehabilitation, strengthening, prior to discharge home alone. Objective: Allergies Sulfa (Sulfonamide Antibiotics) Allergy (Verified 06/22/25 14:16) doesnt know why doesnt know why Current Medications Generic Name Dose Route Start Last Admin Trade Name Freq PRN Reason Stop Dose Admin Acetaminophen 1,000 mg 07/02/25 20:47 07/02/25 21:06 Acetaminophen 500 Mg Tablet PO 1,000 mg Q6H PRN PRN Administration Pain 1-10 Albuterol/Ipratropium 3 ml 07/02/25 17:45 07/03/25 07:10 Ipratropium/Albuterol Sulfate 3 Ml Ampul.Neb INHALATION 3 ml Q6H.RT DANIELA Administration Alprazolam 0.25 mg 07/02/25 17:33 07/02/25 22:28 Alprazolam 0.25 Mg Tablet PO 0.25 mg BID PRN Administration ANXIETY/AGITATION Amiodarone HCl 200 mg 07/03/25 10:00 07/03/25 09:14 Amiodarone 200 Mg Tablet PO 200 mg DAILY DANIELA Administration Apixaban 5 mg 07/02/25 22:00 07/03/25 09:14 Apixaban 5 Mg Tablet PO 5 mg BID DANIELA Administration Lisinopril 10 mg 07/03/25 10:00 07/03/25 09:14 Lisinopril 10 Mg Tablet PO 10 mg DAILY DANIELA Administration Protocol Magnesium Citrate 300 ml 07/02/25 17:35 Magnesium Citrate 300 Ml PO X1 PRN Constipation Senna/Docusate Sodium 1 tablet 07/02/25 22:00 07/03/25 09:11 Senna/Docusate Sodium 1 Tablet PO Not Given BID DANIELA Sodium Chloride 10 - 40 ml 07/02/25 17:38 07/02/25 22:32 0.9% Saline Lock 10 Ml Syringe IV 10 ml UD PRN Administration SALINE FLUSH Trazodone HCl 50 - 100 mg 07/02/25 22:00 07/02/25 22:18 Trazodone 50 Mg Tablet PO 50 mg QHS DANIELA Administration Tuberculin PPD 0.1 ml 07/03/25 10:00 07/03/25 09:15 Tuberculin,Purif.Prot.Deriv. 50 Tu/Ml Vial ID 07/03/25 10:01 0.1 ml X1 ONE Administration Tuberculin PPD 0.1 ml 07/10/25 10:00 Tuberculin,Purif.Prot.Deriv. 50 Tu/Ml Vial ID 07/10/25 10:01 X1 ONE Zolpidem Tartrate 5 mg 07/02/25 17:39 07/02/25 23:19 Zolpidem Tartrate 5 Mg Tablet PO 5 mg QHS PRN Administration INSOMNIA Problem List Insomnia (Acute) Hydronephrosis of left kidney (Acute) Left renal stone (Acute) Fluid overload (Acute) Acute respiratory failure with hypoxia (Acute) Debility (Acute) Pneumonia (Acute) Atrial fibrillation (Acute) Vital Signs Temp Pulse Resp BP Pulse Ox O2 Del Method O2 Flow Rate 98.5 F 77 19 H 124/69 H 94 Nasal Cannula 4 07/02/25 17:29 07/03/25 07:00 07/03/25 07:00 07/02/25 17:29 07/02/25 19:45 07/03/25 07:00 07/03/25 07:00 Oxygen Flow Rate (L/min) 4 Oxygen Delivery Method Nasal Cannula Weight: 58.967 kg Body Mass Index (BMI) 20.3 Sodium 137 mmol/L (133-145) 07/03/25 05:13 Potassium 4.5 mmol/L (3.3-5.1) 07/03/25 05:13 Chloride 96 mmol/L (98-108) L 07/03/25 05:13 Carbon Dioxide 33.8 mmol/L (21.0-32.0) H 07/03/25 05:13 Anion Gap 7 (5-15) 07/03/25 05:13 BUN 26 mg/dL (4-19) H 07/03/25 05:13 Creatinine 0.58 mg/dL (0.70-1.20) L 07/03/25 05:13 Est GFR (MDRD) Non-Af 91 (>60) 07/03/25 05:13 BUN/Creatinine Ratio 45.1 RATIO (10-20) H 07/03/25 05:13 Glucose 83 mg/dL (70-99) 07/03/25 05:13 Assessment/Plan: 1. Pain - Tylenol 1000mg PO Q6H PRN pain (1-10). Monitor pain scores before/after prn administration for response, PRN pain medication usage, symptoms of pain/resident distress and ability to participate in therapy. Last AST/ALT: . Check LFTs if resident develops symptoms of hepatoxicity. Consider monitoring LFTs if patient using >3 gm/day of acetaminophen for prolonged period. Do not exceed 4000 mg in 24 hours. 2. Bowel - senna/colace 1 tablet PO BID, Magnesium citrate 300mL PO daily PRN constipation. Resident has not used any prn doses at this time. Last document bowel movement: 07/03/25. Monitor for usage of prn medications, abdominal pain, frequency of bowel movements, diarrhea. Recommend holding bowel regimen if resident develops diarrhea. 3. DVT prophylaxis - Eliquis. Monitor for symptoms of VTE (new onset leg pain, swelling, erythema, SOB, chest pain, hypoxia) and bleeding. 4. Atrial fibrillation- Amiodarone 200mg PO daily, Eliquis 5mg PO BID. HR = 63- 80.?Rate appears adequately controlled. Anticoagulation for stroke prophylaxis regimen = apixaban. Monitor heart rate, blood pressure, exercise capacity and for symptoms including palpitations, fatigue, dizziness, dyspnea, chest pain. Monitor renal function (Scr = 0.58) and body weight (Wt = 58.9 kg). Recommend adjust dose to 2.5 mg PO BID based on age (80 years old), weight 58.9 kg and Scr 0.58.? Combination of age (> 80 years), wt (< 60 kg) and Scr (> 1.5 mg/dL) may warrant dose reduction. Monitor for symptoms of bleeding (including melena, hemoptysis, hematuria, epistaxis, new-onset headache), hemoglobin (last Hgb = 11.9). 5. Acute respiratory failure with hypoxia - Duoneb 3mL q6, oxygen 6 liters NC, wean as tolerated, schedule pulmonary consultation to consider amiodarone toxicity. Please monitor for shortness of breath, agitation, dry mouth, and headache. 6. Hypertension - Lisinopril 10mg PO daily. BP range since admission = 100/76 - 143/82.?BP control appropriate at this time. Monitor blood pressure, heart rate, symptoms of orthostasis, dizziness.? Consider checking orthostatic blood pressure and implementing fall precautions with any indication of orthostatic hypotension. Monitor serum potassium (last K = 4.5 (07/03/25)), renal function (SCr = 0.58 (07/03/25)), for cough and symptoms of angioedema. Assessment/Plan for indications treated with psychotropic medications: 1. Anxiety: Xanax 0.25 mg PO BID PRN (Averaging 1 dose daily at this time). Monitor for sedation, mental status and cognition. Monitor for falls (risk factor for falls) and implement fall prevention strategies. Monitor for respiratory depression. RR range since admission = 16-24 - Monitor prn usage and efficacy of prn doses including resident symptoms, behaviors and indications of distress. Monitor for tolerability including mental status, cognition, excessive sleepiness, withdrawal or decreased participation in activities and decline in physical functioning. Maximize use of nonpharmacologic/behavior interventions to minimize use of prn medication. Prn psychotropic order must be renewed at 14 days per policy. Evaluate continued need for medication, effect of prn medication on resident?s symptoms/distress and tolerability to determine the appropriateness of order renewal. 2. Insomnia: Trazodone 50-100 mg PO QHS, Zolpidem 5 mg PO QHS PRN. Monitor for residual daytime sedation, mental status and cognition. Monitor for abnormal sleep behaviors or psychiatric effects including hallucinations, aggressive behavior, or delirium. Monitor for falls (risk factor for falls) and implement fall prevention strategies. Monitor for respiratory depression. Monitor for drowsiness, dizziness or confusion, dry mouth, constipation, symptoms of serotonin syndrome (including agitation, confusion, hyperreflexia, rigidity/myoclonus, tremor, tachycardia, tachypnea), suicidal thoughts or behaviors (Boxed Warning). Monitor HR (can cause bradycardia or tachycardia). HR range since admission = 63-80. Monitor for orthostatic hypotension, including postural dizziness, syncope or falls. Check orthostatic vital signs if suspicion of orthostasis. QT on last ECG = 410 (06/22/25). - Monitor for efficacy including resident symptoms, behaviors and indications of distress. Monitor for tolerability including mental status, cognition, excessive sleepiness, withdrawal or decreased participation in activities and decline in physical functioning. Maximize use of nonpharmacologic/behavioral interventions to facilitate dose reduction or discontinuation as appropriate. Please evaluate the appropriateness of GDR unless contraindicated. If appropriate, GDR should be attempted in 2 separate quarters within the first year of use or admission to TCU. If GDR attempted, monitor resident symptoms/behaviors. Medical chart and medication regimen reviewed. The following medication irregularities or issues were identified: - Please consider decreasing the dose of apixaban to 2.5 mg PO BID due to the patient meeting 2 of 3 criteria for dose reduction for atrial fibrillation (age >80 and weight <60 kg). Date Date of Note: 07/03/25 Documented by User: Dr. Gilbert Michael MD 07/03/25 12:36 TCU RX Drug Regimen Review Provider Comments Provider responsibility Provider Comments to Recommendations by Pharmacy Agree
[2025-07-03 10:00] VITALS: BP 111/65; PULSE 82; RESP 22; TEMP 36.8; O2SAT 93
--- NOTE | 2025-07-03 10:33 | NURSING ---
Import Coordinator Note; Activity Asset Complete Alexa is independent in her choice of daily Activities. Her son visits daily and will bring her items she may need. Her guide cruise visits, she welcomes the new grad rn and therapy dog when available. At this time she prefers in room activities only. Staff will remind her of weekly activities and respect her right to say no.
[2025-07-03 13:47] VITALS: PULSE 81; RESP 19
[2025-07-03 14:29] LABS: Mucous, Urine 0 SEEN /hpf (<or=2+); Squamous Epithelial Cells - UA 0 SEEN /hpf (5-10)
[2025-07-03 14:36] LABS: Color, Urine Yellow (Yellow); Glucose, Dipstick Normal (Normal); Ketone-Dipstick Negative (Negative); Leukocyte Esterase-Dipstick 25 /ul (Negative); Nitrite-Dipstick Negative (Negative); Occult Blood-Urine 250 /ul (Negative); Protein-Dipstick 30 mg/dl (Negative); Specific Gravity, Urine 1.015 (1.002-1.030); Urine Bilirubin Dipstick Negative (Negative)
[2025-07-03 14:47] LABS: Red Blood Cells-Urine 25-50 SEEN /hpf (0-5)
--- NOTE | 2025-07-03 16:26 | CASEMGMT ---
Social Work Multiple attempts to complete assessment with pt - all unsuccessful. SW will continue to attempt. Jane Forde SALES REPRESENTATIVE BUSINESS COURSES SCALE INSTALLER
--- NOTE | 2025-07-03 16:49 | NURSING ---
Patient states she has had hematuria and diarrhea for 2 months and that no one can tell her what is wrong. She did state that a CT showed a renal stone however. Dr. Michael made aware and Imodium ordered PRN and UA C&S ordered. Needs appt made with Dr Cervantes for hematuria. Patient made aware of new orders.
[2025-07-03 19:50] VITALS: PULSE 84; RESP 18; O2SAT 93
[2025-07-03] MEDS: APIXABAN 2.5 MG TABLET (WCH) PO (22:30)
[2025-07-03] MEDS: 0.9% Saline Lock 10 ML Syringe IV (22:35)
[2025-07-04] VITALS (7 sets, daily range): BP systolic 100–112; BP diastolic 59–71; PULSE 73–86; RESP 16–24; TEMP 36.7–36.8; O2SAT 88–95
[2025-07-04] MEDS: APIXABAN 2.5 MG TABLET (WCH) PO ×2 (09:13→22:38)
--- NOTE | 2025-07-04 11:41 | NURSING ---
PT WAS CAUGHT BY STAFF WALKING INTO BATHROOM. THIS NURSE EDUCATED AND REMINDED PT THIS MORNING ABOUT USING THE CALL LIGHT AND PT STATED SHE UNDERSTOOD. PER DAY GUARD PT DID GET UP ON OWN ALSO. REEDUCATED PT AGAIN. PT VERY UNSTEADY WHEN WALKING AND DOES NOT KEEP WALKER ON GROUND. LEFT NOTE FOR FOR ALARMS.
[2025-07-04] MEDS: 0.9% Saline Lock 10 ML Syringe IV (14:03)
[2025-07-05] VITALS (7 sets, daily range): BP systolic 127–137; BP diastolic 71; PULSE 72–90; RESP 18–28; TEMP 36.9; O2SAT 84–94
[2025-07-05] MEDS: APIXABAN 2.5 MG TABLET (WCH) PO ×2 (10:32→22:08)
[2025-07-05] MEDS: 0.9% Saline Lock 10 ML Syringe IV ×2 (15:52→22:09)
[2025-07-06 06:20] VITALS: PULSE 78; RESP 16; O2SAT 91
[2025-07-06 08:48] VITALS: BP 159/72; PULSE 89; RESP 20; TEMP 37.1; O2SAT 93
[2025-07-06] MEDS: APIXABAN 2.5 MG TABLET (WCH) PO (09:51)
[2025-07-06] MEDS: 0.9% Saline Lock 10 ML Syringe IV (09:53)
--- NOTE | 2025-07-06 10:36 | NURSING ---
Called into room to assess resident with [employer]. Resident appeared pale, slightly clammy, and short of breath. She was unable to keep 02 sats >90% on 7L. She was resting in bed, had not been up or moving around. Placed on NRB and sats came up to low to mid 90s. Blood pressure and pulse WNL. Running low grade temp 100.9. Resident reports feeling short of breath, woozy and tired. [employer] updated Dr. Michael, order to send to ER. Report called and resident transferred to ER. This RN attempted to update son Sy, had to leave .
--- NOTE | 2025-07-06 12:29 | PCM.DC.SUM ---
Providers Date of Admission: 07/02/25 Primary Care Physician: Dr. Wilson Brizuela DO Reason For Visit: RESPIRATORY FAILURE/PNEUMONIA Diagnosis Discharge Diagnosis (1) Debility: Status: Acute Code(s): R53.81 - Other malaise (2) Acute respiratory failure with hypoxia: Status: Acute Code(s): J96.01 - Acute respiratory failure with hypoxia (3) Pneumonia: Status: Acute Code(s): J18.9 - Pneumonia, unspecified organism (4) Fluid overload: Status: Acute Code(s): E87.70 - Fluid overload, unspecified (5) Left renal stone: Status: Acute Code(s): N20.0 - Calculus of kidney (6) Hydronephrosis of left kidney: Status: Acute Code(s): N13.30 - Unspecified hydronephrosis (7) Atrial fibrillation: Status: Acute Code(s): I48.91 - Unspecified atrial fibrillation Qualifiers: Atrial fibrillation type: paroxysmal Qualified Code(s): I48.0 - Paroxysmal atrial fibrillation (8) Insomnia: Status: Acute Code(s): G47.00 - Insomnia, unspecified Plan 80 year old female with below past medical history hospitalized for acute respiratory failure with hypoxia 2/2 pneumonia, complicated by fluid overload, left kidney stone, left hydronephrosis, admitted to TCU with debility, here for rehabilitation, strengthening, prior to discharge home alone. Debility - PT/OT. Pain - Tylenol 1000mg q6 prn pain (1-10). Bowel - senna/colace 1 tablet bid, Magnesium citrate 300mL daily prn. Adult immunization - Administer pneumonia vaccine, covid vaccine, flu vaccine as appropriate. DVT prophylaxis - Eliquis. Atrial fibrillation- Amiodarone 200mg daily, Eliquis 5mg bid. Acute respiratory failure with hypoxia - Duoneb 3mL q6, oxygen 6 liters NC, wean as tolerated, schedule pulmonary consultation to consider amiodarone toxicity. Hypertension - Lisinopril 10mg daily. The following psychotropic medication was present on admission: Xanax 0.25mg bid prn. Psychotropic medication therapy is indicated for a diagnosis of: Anxiety. Based on my clinical evaluation, continuation of the medication is necessary at this time. Gradual dose reduction plan (select one): ____ GDR will be attempted. Will monitor patient symptoms and behaviors in response to GDR. __x__ GRD contraindicated. 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 The following psychotropic medication was present on admission: Trazodone 50mg to 100mg qhs. Psychotropic medication therapy is indicated for a diagnosis of: Insomnia. Based on my clinical evaluation, continuation of the medication is necessary at this time. Gradual dose reduction plan (select one): ____ GDR will be attempted. Will monitor patient symptoms and behaviors in response to GDR. __x__ GRD contraindicated. Reason contraindicated: stable chronic shelter use. The following psychotropic medication was present on admission: Zolpidem 5mg qhs prn. Psychotropic medication therapy is indicated for a diagnosis of: Insomnia. Based on my clinical evaluation, continuation of the medication is necessary at this time. Gradual dose reduction plan (select one): ____ GDR will be attempted. Will monitor patient symptoms and behaviors in response to GDR. __x__ GRD contraindicated. 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 Medications at Discharge Home Medications apixaban 5 mg tablet (Eliquis) 5 mg PO BID afib #180 tabs 09/02/24 zolpidem 12.5 mg tablet,extended release,multiphase 12.5 mg PO QDAY PRN insomnia 03/03/25 amiodarone 200 mg tablet 200 mg PO DAILY afib #90 tabs 06/01/25 trazodone 50 mg tablet 50 - 100 mg PO QHS sleep 06/22/25 alprazolam 0.25 mg tablet 0.25 mg PO BID PRN Anxiety/Agitation #4 tabs 07/02/25 ipratropium 0.5 mg-albuterol 3 mg (2.5 mg base)/3 mL nebulization soln 3 ml inhalation Q6H.RT lungs #0 mL 07/02/25 lisinopril 10 mg tablet 10 mg PO DAILY BP #0 tabs 07/02/25 loperamide 2 mg capsule 2 mg PO Q4H PRN PRN DIARRHEA #0 caps 07/02/25 acetaminophen 500 mg capsule 1,000 mg PO Q6H PRN pain 07/06/25 Hospital Course Operations None Procedures None Summary of Care Provided Minutes Spent on Discharge: 15 Hospital Course: 80 year old female with below past medical history hospitalized for acute respiratory failure with hypoxia 2/2 pneumonia, complicated by fluid overload, left kidney stone, left hydronephrosis, admitted to TCU with debility, here for rehabilitation, strengthening, prior to discharge home alone. 07/06/2025 Alexa developed acute respiratory failure with hypoxia requiring NRB to maintain oxygenation. Discharge to [facility] ER 07/06/2025 for evaluation, admission to [facility]. Medical Records Data Medical Nutrition Assessment Dietitian: Malnutrition Criteria Met Start: 07/03/25 13:18 Freq: Status: Active Protocol: Document 07/03/25 13:18 SLA (Rec: 07/03/25 13:19 SLA [id number]) Nutrition Malnutrition Evidence of Yes Malnutrition Exists Malnutrition ( Acute Illness/Injury moderate): Evidenced By Weight Loss (Severe),Physical Changes (Moderate) Clinical Problem Acute Disease or Injury Related Malnutrition Etiology related to issues w/ diarrhea x 2 mo ago and not able to maintain stable weight Signs/Symptoms as evidenced by 13.6% unplanned wt loss and fat/muscle loss in face and upper body x [address]. Status Active Problem Recommendation Dietitian Continue liberal regular / no added salt diet w/ CIB w/ Recommendations/ breakfast and dinner and ace magic cup w/ lunch Changes Continue to follow and monitor for changes in pt nutritional status and make additional rec as indicated . Weight / BMI Weight Weight: 58.967 kg Body Mass Index (BMI) 20.3 ABG / Lab / Microbiology Data 07/03/25 05:13 07/03/25 05:13 Microbiology: Microbiology 07/03/25 14:20 Urine, Catheterized Urine Culture - Final Culture exhibits no growth. D/C Instructions Discharge Activity: Return to Normal Activity, May Shower and Use Walker Weight Bearing Status: Weight bearing as tolerated Call your doctor if you observe: Fever of 101 or Higher, Inability to urinate, Inability to have a bowel movement, Shortness of breath, Dizziness, Fainting spells, Swelling in the ankles, Chest pain and Uncontrolled pain DC O2, CPAP, BIPAP Needs Home O2 Discharge instructions: No Additional Instructions: Discharge to [facility] ER 07/06/2025 for evaluation, admission to [facility]. Please Follow Up With: Christina Cervantes MD Meaningful Use Info Meaningful Use Meaningful Use Diagnoses (Choose all that apply): None applicable Discharge Plan Admission Admit Date/Time: 07/02/25 16:45 Primary Reason for Your Visit: Debility. Attending Provider: Gilbert Michael Chi Primary Care Provider: Wilson Brizuela Instructions Additional Instructions / Restrictions: Discharge to [facility] ER 07/06/2025 for evaluation, admission to [facility]. Discharge Orders/Prescriptions Prescriptions: No Action Eliquis 5 mg tablet 5 mg PO BID Qty: 180 3RF zolpidem 12.5 mg tablet,ext release multiphase 12.5 mg PO QDAY PRN (Reason: insomnia) trazodone 50 mg tablet 50 - 100 mg PO QHS alprazolam 0.25 mg Tablet 0.25 mg PO BID PRN (Reason: Anxiety/Agitation) Qty: 4 0RF ipratropium-albuterol 0.5 mg-3 mg(2.5 mg base)/3 mL Solution For Nebulization 3 ml inhalation Q6H.RT Qty: 0 0RF loperamide 2 mg Capsule 2 mg PO Q4H PRN PRN (Reason: DIARRHEA) Qty: 0 0RF lisinopril 10 mg Tablet 10 mg PO DAILY Qty: 0 0RF acetaminophen 500 mg capsule 1,000 mg PO Q6H PRN (Reason: pain) amiodarone 200 mg tablet 200 mg PO DAILY Qty: 90 3RF Referrals / Follow Up: Wilson Brizuela DO [Primary Care Provider, Family Practice] Disposition Disposition (needs filled in before D/C Order can be placed): Acute Care Hospital [facility]
--- NOTE | 2025-07-06 15:48 | CHAPLAIN ---
Type of Pastoral Visit ___ Initial Visit ___ Follow-up Visit ___ On-call Visit ___ General Patient Visit ___ Spiritual Assessment ___ Family Conference ___ Bereavement ___ Rapid Response ___ Code Blue ___ Other (describe below) Pastoral Care Referral From ___ Patient ___ Family ___ Nurse ___ Physician ___ Burial Vault Deliverer And Installer ___ Concrete Form Setter And Finisher ___ Other (describe below) Sacrament/Intervention ___ Active listening ___ Anointing ___ Rastafarian ___ Bereavement ___ Communion ___ Jillian exploration ___ ___ Life review ___ Prayer ___ Reconciliation ___ Sacrament of Sick ___ Supportive presence ___ Wedding ___ Other (describe below) Pastoral Comments patient was moved back to ICU; pt was seen there as RN is caring for her needs; pt is alert but is asked to stay calm and not talk much due to her breathing; pt welcomes presence and prayer and thanks this chief learning officer for coming to be with her
== END 2025-07-06 10:30 | disposition short-term general hospital (02) | DRG 193 ==
PROVIDERS: Admitting Provider Family Medicine Geriatric Medicine; PCP Family Medicine; Referring Provider Family Medicine Geriatric Medicine; Visit Provider Family Medicine Geriatric Medicine
DX: J18.9 Pneumonia, unspecified organism (principal); J96.01 Acute respiratory failure with hypoxia; N13.2 Hydronephrosis with renal and ureteral calculous obstruction; I10 Essential (primary) hypertension; I48.0 Paroxysmal atrial fibrillation; E78.5 Hyperlipidemia, unspecified; F41.9 Anxiety disorder, unspecified; E87.70 Fluid overload, unspecified; Z79.899 Other long term (current) drug therapy; G47.00 Insomnia, unspecified; Z79.01 Long term (current) use of anticoagulants
CPT/HCPCS: 36415; 80048; 81001; 85025; 87086; 94640; 94667; 97110; 97162; 97166; 97530; 97535; 97802; A4216

== ENCOUNTER 2025-07-06 10:37 | Inpatient (IN) | payer MEDICARE, SELFPAY ==
[2025-07-06] VITALS (28 sets, daily range): BP systolic 85–144; BP diastolic 47–102; PULSE 72–95; RESP 17–37; TEMP 36.2–39.1; O2SAT 83–100; BMI 19.8
[2025-07-06 10:53] LABS: Base Excess 6 mmol/L (-2 to +2); FI02 15.0; PO2 48 mmHG (75-100); SITE R Brach; SO2 85 % (94-98)
--- NOTE | 2025-07-06 10:58 | EKG12_ITS ---
Test Reason : SOB Blood Pressure : */* mmHG Vent. Rate : 76 BPM Atrial Rate : 76 BPM P-R Int : 208 ms QRS Dur : 164 ms QT Int : 446 ms P-R-T Axes : 46 99 19 degrees QTcB Int : 501 ms Normal sinus rhythm Right bundle branch block Abnormal ECG Confirmed by RON ROMERO, JOSE ENRIQUE ([id number]), general expeditor ROB CARUSO ([id number]) on 07/08/2025 9:09:35 AM Referred By: Confirmed By: JOSE ENRIQUE VELASQUEZ MD
[2025-07-06 11:13] LABS: Hematocrit 40.5 % (37-47); Hemoglobin 13.2 g/dL (12.0-15.0); Immature Granulocytes Count 0.190 X10^3/uL (0.0-0.0); Mean Corp Hgb Conc 32.6 g/dL (32-36); Mean Corpuscular Volume 94.2 fL (81-99); Mean Platelet Vol. 10.3 fl (6.2-12.0); NRBC Flagged by Analyzer 0 % (0-5); Platelet Count 327 K/mm3 (150-450); RBC Distribution Width CV 14.7 % (11.6-14.6); RBC Distribution Width SD 50.7 fl (35.1-43.9); Red Blood Count 4.30 M/mm3 (4.2-5.4); White Blood Count 19.6 K/mm3 (4.4-11.0)
[2025-07-06 11:19] LABS: Prothrombin Time (Protime)PT. 16.9 SECONDS (11.7-14.9)
[2025-07-06 11:20] LABS: Partial Thromboplast Time 32.1 Seconds (24.1-36.2)
--- NOTE | 2025-07-06 11:25 | RAD_ITS ---
PROCEDURE: CHEST 1 VIEW (PORTABLE) 07/06/2025 REASON FOR EXAM: DYSPNEA TECHNIQUE: Frontal view of the chest. COMPARISON: Chest x-ray study dated 06/24/2025 FINDINGS: Hardware: None Heart: Stable cardiomegaly. Arteriosclerotic vascular disease of the aorta is noted. Lungs: Trachea is midline. Prominent interstitial and alveolar markings are noted in both lungs and are slightly worse when compared to the prior exam. These most likely represent pneumonic infiltrates. Small/trace pleural effusions are noted bilaterally. Emphysematous changes are noted involving both lungs. Bones: Bony demineralization of the thorax is noted. Old healed right rib fractures are noted. RAD/Chest 1 View (Portable) IMPRESSION: Prominent interstitial and alveolar markings are noted in both lungs and are sl ightly worse when compared to the prior exam. These most likely represent pneumonic infiltrates. Small/trace pleural effusions are noted bilaterally. Emphysematous changes are noted involving both lungs. Reading Location: [id number]
[2025-07-06 11:30] LABS: D-Dimer Quantitative (DVT/PE) 0.71 FEU/ug/m (0.27-0.49)
--- NOTE | 2025-07-06 11:38 | ED.VIS.DYS ---
HPI History of Present Illness Chief Complaint: Shortness of Breath Informant: patient Onset/Context/Timing Onset: Yesterday Context: gradual Timing: Continuous Quality: Positive for Orthopnea Worsened by: Lying flat Relieved by: - (Sitting upright) Associated Symptoms Negative for cough, rhinorrhea, post nasal drip, ear pain, fever, sore throat, chills, sweats, clear sputum, white sputum, yellow sputum or green sputum Narrative Narrative: Patient presents with shortness of breath that began today. Patient is in the TCU and was referred to the emergency department for difficulty breathing. Patient states that it began last evening. Patient states it has gradually gotten worse. Patient states it is worse when she lays flat and better when she is able to sit up. Patient states it has been waxing and waning. Patient denies any fevers or chills. Patient denies any cough. Patient denies any chest pain. PE Risk Factors: Positive for Recent immobilization; Negative for Cancer, OCP + Smoking + > 35, Prior DVT or PE or Recent surgery PFSH [facility] Medical History (Updated 07/06/25 @ 14:[address] Lisa Rashid MD) Hydronephrosis of left kidney HTN (hypertension) PAF (paroxysmal atrial fibrillation) Bradycardia SVT (supraventricular tachycardia) Nonrheumatic mitral valve stenosis with insufficiency HLD (hyperlipidemia) Home Medications ?Medication ?Instructions ?Recorded ?Last Taken ?Type apixaban 5 mg tablet (Eliquis) 5 mg PO BID afib #180 tabs 09/02/24 07/06/25 Rx zolpidem 12.5 mg tablet,extended 12.5 mg PO QDAY PRN insomnia 03/03/25 07/05/25 History release,multiphase amiodarone 200 mg tablet 200 mg PO DAILY afib #90 tabs 06/01/25 07/06/25 Rx trazodone 50 mg tablet 50 - 100 mg PO QHS sleep 06/22/25 07/05/25 History alprazolam 0.25 mg tablet 0.25 mg PO BID PRN 07/02/25 07/06/25 Rx Anxiety/Agitation #4 tabs ipratropium 0.5 mg-albuterol 3 mg 3 ml inhalation Q6H.RT lungs #0 mL 07/02/25 07/06/25 Rx (2.5 mg base)/3 mL nebulization soln lisinopril 10 mg tablet 10 mg PO DAILY BP #0 tabs 07/02/25 07/06/25 Rx loperamide 2 mg capsule 2 mg PO Q4H PRN PRN DIARRHEA #0 07/02/25 07/03/25 Rx caps acetaminophen 500 mg capsule 1,000 mg PO Q6H PRN pain 07/06/25 07/05/25 History Allergy/AdvReac Type Severity Reaction Status Date / Time Sulfa (Sulfonamide Allergy doesnt Verified 07/06/25 10:42 Antibiotics) know why Surgical History S/P trigger finger release Hx of shoulder surgery History of bladder suspension procedure Social History household members: none Smoking Status: Never smoker alcohol intake: never substance use type: does not use caffeine: Yes Type: coffee Number of servings: 1 ROS ROS ED Constitutional Constitutional ED: Denies chills or fever(s) Eyes Eyes: Denies blurry vision or change in vision ENT ENT ED: Denies rhinorrhea or sore throat Cardiovascular Cardiovascular: Denies chest pain or palpitations Respiratory/Chest Respiratory/Chest: Reports dyspnea; Denies cough Gastrointestinal Gastrointestinal: Denies nausea or vomiting Genitourinary Genitourinary ED: Denies dysuria or hematuria Musculoskeletal Musculoskeletal: Reports back pain; Denies neck pain Integumentary Denies abscess or rash Neurologic Neurologic: Reports headache(s); Denies weakness Allergic/Immunologic Allergic/Immunologic ED: Denies mouth swelling or urticaria EXAM Physical Exam Const Vital Signs: 07/06/25 10:37 07/06/25 10:38 07/06/25 10:41 Temperature 97.1 F L 97.1 F L Temperature Source Oral Oral Pulse Rate 78 95 Respiratory Rate 31 H Respiratory Effort Respiratory Depth Respiratory Pattern Blood Pressure 144/72 H 144/72 H Blood Pressure Mean 96 96 Pulse Ox 92 95 Oxygen Delivery Method Non-Rebreather Non-Rebreather Oxygen Flow Rate (L/min) 15 15 Fraction of Inspired Oxygen (FIO2) 07/06/25 10:49 07/06/25 11:09 07/06/25 11:41 Temperature 98.8 F Temperature Source Core Pulse Rate 78 Respiratory Rate 34 H Respiratory Effort Short of Breath Labored Respiratory Depth Shallow Respiratory Pattern Tachypnea Blood Pressure 137/63 H Blood Pressure Mean 87 Pulse Ox 100 84 Oxygen Delivery Method Non-Rebreather Venturi Mask Oxygen Flow Rate (L/min) 15 Fraction of Inspired Oxygen (FIO2) 07/06/25 11:48 07/06/25 11:49 07/06/25 12:00 Temperature 99 F 99.2 F H Temperature Source Core Core Pulse Rate 78 77 Respiratory Rate 24 H 32 H Respiratory Effort Respiratory Depth Respiratory Pattern Blood Pressure 137/63 H 138/70 H Blood Pressure Mean 87 92 Pulse Ox 85 83 100 Oxygen Delivery Method Venturi Mask Venturi Mask Airvo Oxygen Flow Rate (L/min) 60 Fraction of Inspired Oxygen (FIO2) 50 50 70 07/06/25 12:01 07/06/25 13:00 07/06/25 13:44 Temperature 99.8 F H 100.6 F H Temperature Source Core Core Pulse Rate 90 82 Respiratory Rate 20 H 34 H Respiratory Effort Respiratory Depth Respiratory Pattern Tachypnea Blood Pressure 137/58 H Blood Pressure Mean 84 Pulse Ox 94 95 Oxygen Delivery Method Airvo Oxygen Flow Rate (L/min) 60 Fraction of Inspired Oxygen (FIO2) 70 70 07/06/25 14:06 Temperature 101.8 F H Temperature Source Core Pulse Rate 88 Respiratory Rate 25 H Respiratory Effort Respiratory Depth Respiratory Pattern Blood Pressure 140/102 H Blood Pressure Mean 114 Pulse Ox 92 Oxygen Delivery Method Airvo Oxygen Flow Rate (L/min) Fraction of Inspired Oxygen (FIO2) Positive well nourished and well developed General Appearance ED: well developed and NAD HEENT Reports moist mucous membranes atraumatic Neck supple, no meningeal signs and no JVD Resp Auscultation: rhonchi left lower Cardio regular rate and regular rhythm GI non-tender and non-distended Palpation: soft Extremity normal to inspection Neuro oriented x3, CN's II-XII intact bilaterally and no sensory deficits noted Reyes Coma Scale: document GCS findings Spontaneous Obeys Commands Oriented 15 Sensorium / Orientation: alert Speech: speech normal Motor Exam: strength 5/5 throughout Psych mental status grossly normal MDM MDM MDM Narrative Medical decision making narrative: Differential diagnosis includes pneumonia, bronchitis, pulmonary embolism, electrolyte abnormality, sepsis, cardiac dysrhythmia, cardiac ischemia, congestive heart failure, and anxiety. EKG will be obtained to assess for cardiac dysrhythmia and cardiac ischemia. Chest x-ray will be obtained to assess for pneumonia or bronchitis. Arterial blood gas will be obtained to assess for hypoxemia and acidosis. CBC will be obtained to assess for leukocytosis and anemia. Basic metabolic profile will be obtained to assess for electrolyte abnormality and renal function. Urinalysis will be obtained to assess for urinary tract infection. High-sensitivity troponin will be obtained to assess for cardiac ischemia. 2-hour repeat high-sensitivity troponin will be obtained to assess for ongoing cardiac ischemia. D-dimer will be obtained to assess for pulmonary embolism. BNP will be obtained to assess for congestive heart failure. Lactate will be obtained to assess for sepsis. PT with INR and PTT will be obtained to assess for coagulopathy. Blood cultures will be obtained to assess for sepsis. History & Record Review Additional record(s) reviewed:: Prior outpatient record, Prior ED visit and Prior labs Lab Data Attestation: I reviewed the patient's lab results. Lab results narrative: CBC was reviewed. There is a leukocytosis of 19.6. The remainder is within normal limits. PT with INR and PTT were reviewed. Pro time was 16.9 and INR is 1.4. PTT was normal at 32.1. D-dimer was reviewed and was 0.71. This is normal for the patient's age. Basic metabolic profile was reviewed. BUN was slightly elevated at 20. Creatinine was normal at 0.73. Initial high-sensitivity troponin was reviewed and was 22. 2-hour repeat high-sensitivity troponin was reviewed and was 23. Urinalysis was reviewed. Leukocyte esterase was negative. The occult blood was 250 with 50-100 red blood cells. Labs: Laboratory Results - last 24 hr 07/06/25 07/06/25 07/06/25 11:00 11:03 11:46 WBC 19.6 H RBC 4.30 Hgb 13.2 Hct 40.5 MCV 94.2 MCH 30.7 MCHC 32.6 RDW Std Deviation 50.7 H RDW Coeff of Hilda 14.7 H Plt Count 327 MPV 10.3 Immature Gran % (Auto) 1.000 H Neut % (Auto) 86.0 H Lymph % (Auto) 6.7 L [place] % (Auto) 5.3 Eos % (Auto) 0.8 Baso % (Auto) 0.2 Absolute Neuts (auto) 16.9 H Absolute Lymphs (auto) 1.31 Nucleated RBC % 0 PT 16.9 H INR 1.4 APTT 32.1 D-Dimer Quant (PE/DVT) 0.71 H* Sodium 137 Potassium 4.2 Chloride 97 L Carbon Dioxide 29.5 Anion Gap 11 BUN 20 H Creatinine 0.73 Estim Creat Clear Calc 51.00 Est GFR (MDRD) Non-Af 83 BUN/Creatinine Ratio 26.9 H Glucose 96 Lactic Acid 1.6 Calcium 9.0 Troponin T High Sens 22 H D Troponin T Hi Sens 2 Hr NT pro BNP II 640 Urine Color Yellow Urine Clarity Clear Urine pH 7.0 Ur Specific [place] 1.010 Urine Protein 15 H Urine Glucose (UA) Normal Urine Ketones Negative Urine Occult Blood 250 H Urine Nitrite Negative Urine Bilirubin Negative Urine Urobilinogen 1 H Ur Leukocyte Esterase Negative Urine RBC 50-100 SEEN Urine WBC 0 SEEN Ur Squamous Epith Cells 0 SEEN Urine Bacteria 0 SEEN Urine Mucus 0 SEEN 07/06/25 13:10 WBC RBC Hgb Hct MCV MCH MCHC RDW Std Deviation RDW Coeff of Hilda Plt Count MPV Immature Gran % (Auto) Neut % (Auto) Lymph % (Auto) [place] % (Auto) Eos % (Auto) Baso % (Auto) Absolute Neuts (auto) Absolute Lymphs (auto) Nucleated RBC % PT INR APTT D-Dimer Quant (PE/DVT) Sodium Potassium Chloride Carbon Dioxide Anion Gap BUN Creatinine Estim Creat Clear Calc Est GFR (MDRD) Non-Af BUN/Creatinine Ratio Glucose Lactic Acid Calcium Troponin T High Sens Troponin T Hi Sens 2 Hr 23 H NT pro BNP II Urine Color Urine Clarity Urine pH Ur Specific [place] Urine Protein Urine Glucose (UA) Urine Ketones Urine Occult Blood Urine Nitrite Urine Bilirubin Urine Urobilinogen Ur Leukocyte Esterase Urine RBC Urine WBC Ur Squamous Epith Cells Urine Bacteria Urine Mucus ABG Data Attestation: I personally reviewed and interpreted this ABG as follows: Interpretation: Arterial blood gas was reviewed. pH was 7.45, pO2 was 48, pCO2 was 43.1. Oxygen saturation is 85% on nonrebreather mask. ABG results: ABG 07/06/25 10:50 Specimen Type ART Sample Site R Brach pH 7.45 Bicarbonate Actual 30.3 H Total CO2 32 Base Excess 6 H O2 Saturation 85 L O2 % 15.0 ABG pCO2 43.1 ABG pO2 48 L O2 Delivery Device NRB Vent Mode Not entered Radiography Chest X-Ray - ED: 1 View, Read by ED Physician, Read by Radiologist, Right Infiltrate and Left Infiltrate Diagnostic Testing: Clinical Impression(s) from Imaging Studies Chest X-Ray 07/06/25 11:25 IMPRESSION: Prominent interstitial and alveolar markings are noted in both lungs and are slightly worse when compared to the prior exam. These most likely represent pneumonic infiltrates. Small/trace pleural effusions are noted bilaterally. Emphysematous changes are noted involving both lungs. Reading Location: [facility] EKG Initial EKG: Attestation: I personally reviewed and interpreted this EKG as follows: Interpretation: Sinus Rhythm (76), RBBB and Non-Specific ST Changes Comments: EKG was reviewed. On my independent interpretation, shows sinus rhythm with a rate of 76. VA interval was slightly prolonged at 208 ms. QRS interval was prolonged at 164 ms. QTc interval was slightly prolonged at 501 ms. [place] was normal. There is a right bundle branch block pattern noted. Prior EKG tracings: available for review Prior: Unchanged (07/01/2025) Management Discussion w/another healthcare provider: Hospitalist Treatment and Re-Evaluation :: Patient was given IV fluids. Patient was given a dose of Tylenol. Patient was started on Zosyn. Patient was given a dose of Ativan. Patient was feeling anxious. Patient was advised of her findings. Patient was advised of the need for hospitalization. Case was discussed with the hospitalist. She will admit the patient to ICU. Patient and family understood and were agreeable with the plan. All questions were answered. Critical Care Time Critical Care Time: Yes Critical care time (excluding procedures): 30-74 minutes (34), Including time spent:, Discussing w/Patient &/or Family/Departmental Secretary, Discussing w/Consultants, Arranging Admission or Transfer and Performing Direct Patient Care at Bedside Discharge Plan Dx/Rx/DC Orders Clinical Impression: Pneumonia, Dyspnea, Acute respiratory failure with hypoxia Disposition Disposition: [facility]
[2025-07-06 11:56] LABS: Troponin T High Sensitivity 22 ng/L (<=14)
[2025-07-06 11:59] LABS: Anion Gap 11 (5-15); BUN 20 mg/dL (4-19); BUN/Creat Ratio 26.9 RATIO (10-20); Calcium,Total 9.0 mg/dL (7.6-11.0); Carbon Dioxide 29.5 mmol/L (21.0-32.0); Chloride 97 mmol/L (98-108); Estimated Creatinine Clearance 51.00 ml/min (50-250); Glucose 96 mg/dL (70-99); Potassium 4.2 mmol/L (3.3-5.1); Pro- Brain NATRIURETIC PEPTIDE 640 pg/mL (<=1800)
[2025-07-06 12:05] LABS: Mucous, Urine 0 SEEN /hpf (<or=2+); Squamous Epithelial Cells - UA 0 SEEN /hpf (5-10)
[2025-07-06 12:07] LABS: Color, Urine Yellow (Yellow); Glucose, Dipstick Normal (Normal); Ketone-Dipstick Negative (Negative); Leukocyte Esterase-Dipstick Negative /ul (Negative); Nitrite-Dipstick Negative (Negative); Occult Blood-Urine 250 /ul (Negative); Protein-Dipstick 15 mg/dl (Negative); Specific Gravity, Urine 1.010 (1.002-1.030); Urine Bilirubin Dipstick Negative (Negative)
[2025-07-06 12:12] LABS: Red Blood Cells-Urine 50-100 SEEN /hpf (0-5)
[2025-07-06] MEDS: 0.9% Normal Saline (1000mL) 1,000 ML 999 ML IV (12:22)
[2025-07-06] MEDS: Piperacil/Tazobactam 4.5 GM in 0.9% Normal Saline (100mL MB+) 100 ML IV (12:24)
[2025-07-06 13:40] LABS: Troponin T High Sens 2 HR 23 ng/L (<=14)
--- NOTE | 2025-07-06 14:13 | PCM.HP.STD ---
HPI - General General Date of Admission: 07/06/25 Date of Service: 07/06/25 Chief Complaint: Dyspnea, orthopnea. 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 II, PAF, recent discharge following prolonged admission 07/02/2025 with transition following to TCU for ongoing therapy following evaluation of acute hypoxic respiratory failure secondary to extensive bilateral multifocal pneumonia initially placed on BiPAP eventually transition to Airvo, treated with Solu-Medrol as well as pulsed dose Lasix, SSI [place], IV Zosyn initially transition to IV Rocephin with cultures consistent with pneumococcal pneumonia completing antibiotic therapy during admission with incidentally noted left renal pelvis nonobstructive calculus and mild left hydronephrosis as well as persistent hypokalemia eventually corrected he now re-presents to the [facility] ED on 07/02/2025 with history of significant dyspnea, worsening with associate orthopnea with occasional cough with mildly petty/frothy sputum although she does report with severe coughing that occasionally she will have sputum tinged with elevated blood and does report they recently went down on her Eliquis in TCU with no marked congestion starting in the evening the day prior worse when she attempts to lay flat but better when she sits up although she reports has been waxing and waning with no recent recurrent fevers or chills prompting ED return precautions. Workup in the ED included T's 97.1, heart rate 95, BP 144/72, respiratory rate 31, 95% on 15 L nonrebreather eventually transition to Airvo with most recent repeat vitals T1 100.6 Kohr, BP 137/58, respiratory rate 34, 95% on 70% FiO2 Airvo, CBC with WBC 19.6, hemoglobin 13.2, platelet 327 with left shift, coags with D-dimer 0.71 however normal for age adjustment and PT 16.9 otherwise no marked appearing, ABG with pH 7.45, bicarb 30.3, O2 saturation 85%, PaO2 48 on nonrebreather, BMP with chloride 97, BUN/Cr 20/0.73, GFR 83, lactic acid 1.6, troponin initial 22, repeat delta 23, NT proBNPII 640, urinalysis not marked appearing, chest x-ray with worsening bilateral infiltrate appearance, blood culture x 2 pending per ED. In the ED patient ministered Tylenol 1000 g p.o. x 1, Ativan 0.5 mg IV x 1, IV Zosyn 4.5 g IV x 1 as well as 1 L normal saline. [facility] Medical History (Updated 07/06/25 @ 14:[address] Lisa Rashid MD) CKD (chronic kidney disease), stage II Anxiety Hydronephrosis of left kidney HTN (hypertension) PAF (paroxysmal atrial fibrillation) Bradycardia SVT (supraventricular tachycardia) Nonrheumatic mitral valve stenosis with insufficiency HLD (hyperlipidemia) Home Medications ?Medication ?Instructions ?Recorded ?Last Taken ?Type apixaban 5 mg tablet (Eliquis) 5 mg PO BID afib #180 tabs 09/02/24 07/06/25 Rx zolpidem 12.5 mg tablet,extended 12.5 mg PO QDAY PRN insomnia 03/03/25 07/05/25 History release,multiphase amiodarone 200 mg tablet 200 mg PO DAILY afib #90 tabs 06/01/25 07/06/25 Rx trazodone 50 mg tablet 50 - 100 mg PO QHS sleep 06/22/25 07/05/25 History alprazolam 0.25 mg tablet 0.25 mg PO BID PRN 07/02/25 07/06/25 Rx Anxiety/Agitation #4 tabs ipratropium 0.5 mg-albuterol 3 mg 3 ml inhalation Q6H.RT lungs #0 mL 07/02/25 07/06/25 Rx (2.5 mg base)/3 mL nebulization soln lisinopril 10 mg tablet 10 mg PO DAILY BP #0 tabs 07/02/25 07/06/25 Rx loperamide 2 mg capsule 2 mg PO Q4H PRN PRN DIARRHEA #0 07/02/25 07/03/25 Rx caps acetaminophen 500 mg capsule 1,000 mg PO Q6H PRN pain 07/06/25 07/05/25 History Allergy/AdvReac Type Severity Reaction Status Date / Time Sulfa (Sulfonamide Allergy doesnt Verified 07/06/25 10:42 Antibiotics) know why Family History (Updated 07/06/25 @ 14:[address] Lisa Rashid MD) Mother Colon cancer Diabetes Father Diabetes Surgical History S/P trigger finger release Hx of shoulder surgery History of bladder suspension procedure Social History household members: none Smoking Status: Never smoker alcohol intake: never substance use type: does not use caffeine: Yes Type: coffee Number of servings: 1 ROS ROS Narrative Admission Review of Systems: CONSTITUTIONAL: No weight loss, weakness or fatigue however, FEBRILE in the ED with also chills reported per family. HEENT: Eyes: No visual loss, blurred vision, double vision or yellow sclerae. Ears, Nose, Throat: No hearing loss, sneezing, congestion, runny nose or sore throat. SKIN: No rash or itching, lesions, wounds except + occasional stage ecchymoses, abrasions. CARDIOVASCULAR: + Dyspnea, orthopnea. No chest pain, chest pressure or chest discomfort, palpitations, edema, syncopal events. RESPIRATORY: + Dyspnea, occasional cough with petty/frothy sputum. No marked wheezing, hemoptysis. GASTROINTESTINAL: No anorexia, nausea, vomiting or diarrhea, abdominal pain, melena, BRBPR. GENITOURINARY: No dysuria, frequency, urgency or retention. NEUROLOGICAL: No headache, dizziness, syncope, paralysis, ataxia, numbness or tingling in the extremities, focal weakness, change in bowel or bladder control, seizure. MUSCULOSKELETAL: No muscle, back pain, joint pain or stiffness. HEMATOLOGIC: No anemia. + Easy bleeding/bruising. LYMPHATICS: No enlarged nodes. No history of splenectomy. PSYCHIATRIC: + History of anxiety. ENDOCRINOLOGIC: No reports of sweating, cold or heat intolerance. No polyuria or polydipsia. ALLERGIES: No history of asthma, hives, eczema or rhinitis. Vital Signs Vital Signs Vital Signs: 07/06/25 10:37 07/06/25 10:38 07/06/25 10:41 Temperature 97.1 F L 97.1 F L Temperature Source Oral Oral Pulse Rate 78 95 Respiratory Rate 31 H Respiratory Effort Respiratory Depth Respiratory Pattern Blood Pressure 144/72 H 144/72 H Blood Pressure Mean 96 96 Pulse Ox 92 95 Oxygen Delivery Method Non-Rebreather Non-Rebreather Oxygen Flow Rate (L/min) 15 15 Fraction of Inspired Oxygen (FIO2) 07/06/25 10:49 07/06/25 11:09 07/06/25 11:41 Temperature 98.8 F Temperature Source Core Pulse Rate 78 Respiratory Rate 34 H Respiratory Effort Short of Breath Labored Respiratory Depth Shallow Respiratory Pattern Tachypnea Blood Pressure 137/63 H Blood Pressure Mean 87 Pulse Ox 100 84 Oxygen Delivery Method Non-Rebreather Venturi Mask Oxygen Flow Rate (L/min) 15 Fraction of Inspired Oxygen (FIO2) 07/06/25 11:48 07/06/25 11:49 07/06/25 12:00 Temperature 99 F 99.2 F H Temperature Source Core Core Pulse Rate 78 77 Respiratory Rate 24 H 32 H Respiratory Effort Respiratory Depth Respiratory Pattern Blood Pressure 137/63 H 138/70 H Blood Pressure Mean 87 92 Pulse Ox 85 83 100 Oxygen Delivery Method Venturi Mask Venturi Mask Airvo Oxygen Flow Rate (L/min) 60 Fraction of Inspired Oxygen (FIO2) 50 50 70 07/06/25 12:01 07/06/25 13:00 07/06/25 13:44 Temperature 99.8 F H 100.6 F H Temperature Source Core Core Pulse Rate 90 82 Respiratory Rate 20 H 34 H Respiratory Effort Respiratory Depth Respiratory Pattern Tachypnea Blood Pressure 137/58 H Blood Pressure Mean 84 Pulse Ox 94 95 Oxygen Delivery Method Airvo Oxygen Flow Rate (L/min) 60 Fraction of Inspired Oxygen (FIO2) 70 70 07/06/25 14:06 Temperature 101.8 F H Temperature Source Core Pulse Rate 88 Respiratory Rate 25 H Respiratory Effort Respiratory Depth Respiratory Pattern Blood Pressure 140/102 H Blood Pressure Mean 114 Pulse Ox 92 Oxygen Delivery Method Airvo Oxygen Flow Rate (L/min) Fraction of Inspired Oxygen (FIO2) Weight Weight: 126 lb 15.78 oz Body Mass Index (BMI) 19.8 Physical Exam Narrative Physical Examination: General: Awake, alert, oriented to self, place and some recent events, Ranes cooperative, seated upright in ED bed, Airvo in place, fatigued, mildly disheveled. Skin: Normal color, normal turgor, no icterus, no cyanosis except occasional stage ecchymoses, abrasion. HEENT: AT/NC, EOMI, PERRLA, MMM, no carotid bruits although difficult assessment given referred sound from Airvo, currently no marked JVD noted. Lungs: Severely diminished, greater bilateral bases, mild increased respiratory rate, Airvo in place, respiratory status improved since initial ED arrival with less distress reported, mildly rhonchorous at the bases, no markedly appreciated wheezing or marked rales. Heart: Regular rate and rhythm; no gallop, rub audible. Abdomen: Soft, NTTP, ND, mildly hyperactive BS, no appreciated HSM. Extremities: No cyanosis, no clubbing, no significant distal edema noted. Neurological: Patient awake, alert, oriented as noted, cognitive function suspect near baseline intact; pupils equally reactive to light and accommodation, cranial nerves grossly normal, moving all 4 extremities, no focal deficits, strength severely globally decreased. Psychiatric: Affect appears flat, fatigued, ill-appearing, no acute evidence of depressive or anxiety feelings but does have underlying anxiety. Results Lab / Micro Data 07/06/25 11:00 07/06/25 11:00 Labs: Laboratory Results - last 24 hr 07/06/25 11:00: WBC 19.6 H, RBC 4.30, Hgb 13.2, Hct 40.5, MCV 94.2, MCH 30.7, MCHC 32.6, RDW Std Deviation 50.7 H, RDW Coeff of Hilda 14.7 H, Plt Count 327, MPV 10.3, Immature Gran % (Auto) 1.000 H, Neut % (Auto) 86.0 H, Lymph % (Auto) 6.7 L, [place] % (Auto) 5.3, Eos % (Auto) 0.8, Baso % (Auto) 0.2, Absolute Neuts (auto) 16.9 H, Absolute Lymphs (auto) 1.31, Nucleated RBC % 0, PT 16.9 H, INR 1.4, APTT 32.1, D-Dimer Quant (PE/DVT) 0.71 H*, Sodium 137, Potassium 4.2, Chloride 97 L, Carbon Dioxide 29.5, Anion Gap 11, BUN 20 H, Creatinine 0.73, Estim Creat Clear Calc 51.00, Est GFR (MDRD) Non-Af 83, BUN/Creatinine Ratio 26.9 H, Glucose 96, Calcium 9.0, Troponin T High Sens 22 H D, NT pro BNP II 640 07/06/25 11:03: Lactic Acid 1.6 07/06/25 11:46: Urine Color Yellow, Urine Clarity Clear, Urine pH 7.0, Ur Specific [place] 1.010, Urine Protein 15 H, Urine Glucose (UA) Normal, Urine Ketones Negative, Urine Occult Blood 250 H, Urine Nitrite Negative, Urine Bilirubin Negative, Urine Urobilinogen 1 H, Ur Leukocyte Esterase Negative, Urine RBC 50-100 SEEN, Urine WBC 0 SEEN, Ur Squamous Epith Cells 0 SEEN, Urine Bacteria 0 SEEN, Urine Mucus 0 SEEN 07/06/25 13:10: Troponin T Hi Sens 2 Hr 23 H ABG Data ABG results: ABG 07/06/25 10:50 Specimen Type ART Sample Site R Brach pH 7.45 Bicarbonate Actual 30.3 H Total CO2 32 Base Excess 6 H O2 Saturation 85 L O2 % 15.0 ABG pCO2 43.1 ABG pO2 48 L O2 Delivery Device NRB Vent Mode Not entered Imaging Radiology Impression Chest X-Ray 07/06/25 11:25 IMPRESSION: Prominent interstitial and alveolar markings are noted in both lungs and are slightly worse when compared to the prior exam. These most likely represent pneumonic infiltrates. Small/trace pleural effusions are noted bilaterally. Emphysematous changes are noted involving both lungs. 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 II, PAF, recent discharge following prolonged admission 07/02/2025 with transition following to TCU for ongoing therapy following evaluation of acute hypoxic respiratory failure secondary to extensive bilateral multifocal pneumonia initially placed on BiPAP eventually transition to Airvo, treated with Solu-Medrol as well as pulsed dose Lasix, SSI [place], IV Zosyn initially transition to IV Rocephin with cultures consistent with pneumococcal pneumonia completing antibiotic therapy during admission with incidentally noted left renal pelvis nonobstructive calculus and mild left hydronephrosis as well as persistent hypokalemia eventually corrected he now re-presents to the [facility] ED on 07/02/2025 with history of significant dyspnea, worsening with associate orthopnea with occasional cough with mildly petty/frothy sputum although she does report with severe coughing that occasionally she will have sputum tinged with elevated blood and does report they recently went down on her Eliquis in TCU with no marked congestion starting in the evening the day prior. #1. 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 given recent admission with indeterminate cardiac enzyme suspected secondary to hypoxic demand in addition to possible Acute HFpEF exacerbation (although reporting orthopnea type symptoms weight is actually decreased from recent discharge 07/02/2025 weight 130 pounds now down to 126 pounds 15.78 ounces): Will admit to ICU, will consult horticultural specialty grower field per protocol, will continue high flow Airvo with transition as able to supplemental oxygen NC, will pulse dose x 1 with IV Lasix as no marked weight gain nor marked edema thus uncertain if true component, will maintain on ATC budesonide therapy cautiously given PAF history and may transition to budesonide if necessary, PRN albuterol, maintain on IV Zosyn and Vancomycin with MRSA screen requested, HOB, IS parameters w/ pending sputum cultures, will request COVID PCR in addition to full respiratory viral culture requested, urine antigens requested, procalcitonin requested. Magnesium, TSH requested. Will continue medical therapy. FLP in AM. Echocardiogram requested given last noted 09/17/2024. Bld cx x 2 obtained in the ED. #2. PAF, Hx NSVT: Will continue patient home amiodarone as well as Eliquis regimen, will maintain on telemetry. #3. Valvular heart disease: Most recent echocardiogram 09/17/24 with normal LV size, LV systolic function normal, LVEF 55%, mild MVI, moderately abnormal global longitudinal strain. #4. Chronic Kidney Disease Stage I versus 2, appears to vacillate: Admission BUN/Cr 20/0.73, GFR 83, baseline renal function primarily 0.5-0.7, repeat BMP in AM. #5. Hypertension: Continue home regimen including lisinopril cautiously with hold parameters in place, PRN hydralazine. #6. Anxiety: Patient on alprazolam low-dose twice daily as needed, given current presentation will very cautiously use. #7. DVT prophylaxis: Will continue patient home Eliquis regimen. #8. CODE status: Patient DANTE is her son and living will is in place. Discussed CODE status at length including difference between FULL code, DNR-CCA and DNR-CC status. Following discussions about the differences in these status, requested DNR-CCA, no intubation and several examples discussed and status confirmed with family present. Advanced Care Planning Face to Face Time: 16 minutes. Charges/Coding Visit Charges Inpatient E&M: 27787 Init Hosp L3 Procedures Hospitalists Procedures: 48347 Advncd Care Plan 30 Min
--- NOTE | 2025-07-06 14:43 | ED.RN ---
This RN called report to recieving RN
[2025-07-06 14:45] LABS: Magnesium 2.3 mg/dL (1.5-2.2)
--- NOTE | 2025-07-06 15:03 | ECHOD_ITS ---
Reason For Study Reason For Study: CHF Procedure This was a 2D Doppler, Color Flow transthoracic echocardiogram. The study was technically difficult. Patient on ventilator. Exam performed portable in ICU/CCU. Left Ventricle Normal LV size. Left ventricular systolic function is normal. The left ventricular ejection fraction is 65 %. No regional wall motion abnormalities noted. Right Ventricle Normal RV size. Normal systolic function. Atria Normal left atrium. Normal right atrium. Mitral Valve Mild mitral valve prolapse. Tricuspid Valve Normal tricuspid valve. Mild (1+) tricuspid valve insufficiency. Pulmonary artery systolic pressure is 25 mmHg. Aortic Valve Normal aortic valve. Trisinus/trileaflet aortic valve. Pulmonic Valve Normal pulmonic valve. Great Vessels Normal aortic root. The pulmonary artery is normal size. and partially collapses. Pericardium/Pleural Small (<1.0 cm) pericardial effusion. There are no echocardiographic indications of cardiac tamponade. MMode/2D Measurements & Calculations LVIDd: 3.6 cm IVSd: 0.85 cm asc Aorta Diam: 3.6 cm LVIDs: 2.2 cm LVPWd: 1.4 cm FS: 39.7 % LAV(MOD-sp4): 30.1 ml LVAd ap4: 18.8 cm2 SV(MOD-sp4): 31.7 ml LVLd ap4: 6.7 cm SI(MOD-sp4): 19.1 ml/m2 EDV(MOD-sp4): 46.1 ml EDV(sp4-el): 45.0 ml LVAs ap4: 9.7 cm2 LVLs ap4: 5.6 cm ESV(MOD-sp4): 14.4 ml ESV(sp4-el): 14.1 ml EF(MOD-sp4): 68.8 % EF(sp4-el): 68.7 % SV(sp4-el): 30.9 ml LA A4 area: 15.4 cm2 LA dimension(2D): 2.4 cm RA A4 area: 15.2 cm2 TAPSE: 1.4 cm Time Measurements MV dec time: 0.25 sec Doppler Measurements & Calculations MV E max mauricio: 95.6 cm/sec Lat Peak E' Mauricio: 5.6 cm/sec Med Peak E' Mauricio: 6.9 cm/sec E/E' lat: 17.0 E/E' med: 13.8 PA V2 max: 78.4 cm/sec TR max mauricio: 236.8 cm/sec TR max P.4 mmHg ECHO/Echo Complete Interpretation Summary Normal LV size. Left ventricular systolic function is normal. The left ventricular ejection fraction is 65 %. Mild mitral valve prolapse. Ordering Physician: Lisa Rashid Referring Physician: Wilson Smalls Performed By: Juana Nguyen RDCS
[2025-07-06 15:27] LABS: Troponin T High Sens 4 HR 31 ng/L (<=14)
--- NOTE | 2025-07-06 15:31 | PCM.RX.CS ---
Consult Antibiotic Management Pharmacy has been consulted to manage selected antibiotic: Vancomycin Type of Intervention Type of Consult: New start Suspected Infection Suspected Infection: Pneumonia Labs Labs: Sodium 137 mmol/L (133-145) 07/06/25 11:00 Potassium 4.2 mmol/L (3.3-5.1) 07/06/25 11:00 Chloride 97 mmol/L (98-108) L 07/06/25 11:00 Carbon Dioxide 29.5 mmol/L (21.0-32.0) 07/06/25 11:00 Anion Gap 11 (5-15) 07/06/25 11:00 BUN 20 mg/dL (4-19) H 07/06/25 11:00 Creatinine 0.73 mg/dL (0.70-1.20) 07/06/25 11:00 Est GFR (MDRD) Non-Af 83 (>60) 07/06/25 11:00 BUN/Creatinine Ratio 26.9 RATIO (10-20) H 07/06/25 11:00 Glucose 96 mg/dL (70-99) 07/06/25 11:00 Microbiology Microbiology: Microbiology 07/06/25 11:46 Urine Catheter - High Streptococcus pneumoniae Antigen (M - Final 07/06/25 11:46 Urine Catheter - High Legionella Antigen - Final Dosing Weight Weight used for dosin.6 kg Estimated Creatinine Clearance Estimated Creatinine Clearance: 51 Goal Trough Goal Trough: 15-20 mcg/mL Pharmacy Plan for Drug Dosing Pharmacy Plan for Drug Dosing: Pharmacy Service will continue to monitor and adjust dosing as required. NEW START IV VANCOMYCIN Consulting Physician: Dr. Rashid Indication: PNA Goal Trough: 15-20 SrCr: 0.73 CrCl: 51 mL/min Vancomycin Dose: 1000 mg Q12H with first dose 07/07 @ 0400 Pending Level: 07/08/25 @ 0330 Date/Time Labs Ordered Labs to be done on [date and time ordered]: 07/08/25 @ 0334
[2025-07-06] MEDS: Vancomycin HCl 1,500 MG in 0.9% Normal Saline (500mL Bag) 500 ML 250 MG IV (15:35)
[2025-07-06 17:09] LABS: Procalcitonin 0.19 ng/mL (<=0.10)
[2025-07-06] MEDS: Piperacil/Tazobactam 3.375 GM in 0.9% Normal Saline (50mL MB+) 50 ML IV (21:41)
[2025-07-06] MEDS: APIXABAN 5 MG TABLET PO (21:41)
[2025-07-07] VITALS (49 sets, daily range): BP systolic 63–139; BP diastolic 45–98; PULSE 57–124; RESP 12–37; TEMP 37.1–39.3; O2SAT 89–100; BMI 20.8
[2025-07-07] MEDS: Vancomycin HCl 1,000 MG in 0.9% Normal Saline (250mL Bag) 250 ML 250 MG IV ×2 (03:29→16:24)
[2025-07-07] MEDS: dexMEDEtomidine 400 MCG in 0.9% Normal Saline (100mL Bag) 96 ML 7.3 MCG CONT INF (04:50)
--- NOTE | 2025-07-07 05:33 | PCM.PN.BLA ---
Progress Note I was called by the patient's nurse that Ms. Alexa Root is interested in changing her CODE STATUS to intubate if needed. Patient with ARDS from pneumonia. She has been very tachypneic, hypoxemic and dyspneic despite maximum high flow settings. Patient has severe anxiety with BiPAP. I explained to patient that BiPAP help avoid intubation which is an important goal for her (although it is an ideal option for pneumonia/ARDS which is progressing in her case and is not expected to improve in the next 24 to 48 hours). I explained that Precedex can be started to help tolerate the BiPAP and patient agreed. I explained to patient that, if noninvasive ventilation fails, intubation will most likely end up with tracheostomy and PEG tube given her age, decreased muscle mass, ICU myopathy and the the nature of her pneumonia with ARDS which is progressing and unlikely to improve very quickly. Even if pneumonia itself improves, I explained to patient that she may not be able to get the tube out because of weakness or other ICU complication like UTI/sepsis, delirium etc. She understood Based on the discussion, patient is agreeable to only a limited trial of intubation like up to 10 days maximum, but definitely no tracheostomy. Patient remains DNR PLAN: I changed CODE STATUS to DNR CCA with intubation with a clear comment stating limited trial of intubation but no tracheostomy Hydrocortisone was added for both pneumonia and for ARDS (CAPE COD trial dose). Please taper after 4 days Self proning is recommended if can be tolerated
[2025-07-07] MEDS: Piperacil/Tazobactam 3.375 GM in 0.9% Normal Saline (50mL MB+) 50 ML IV ×3 (05:51→21:36)
[2025-07-07 05:56] LABS: Hematocrit 33.4 % (37-47); Hemoglobin 11.2 g/dL (12.0-15.0); Immature Granulocytes Count 0.180 X10^3/uL (0.0-0.0); Mean Corp Hgb Conc 33.5 g/dL (32-36); Mean Corpuscular Volume 93.6 fL (81-99); Mean Platelet Vol. 10.1 fl (6.2-12.0); NRBC Flagged by Analyzer 0 % (0-5); Platelet Count 270 K/mm3 (150-450); RBC Distribution Width CV 14.6 % (11.6-14.6); RBC Distribution Width SD 50.5 fl (35.1-43.9); Red Blood Count 3.57 M/mm3 (4.2-5.4); White Blood Count 18.4 K/mm3 (4.4-11.0)
[2025-07-07 06:29] LABS: AST(SGOT) 46 U/L (<=31); Alanine Aminotransfer ALT/SGPT 75 U/L (<=34); Albumin, Serum 2.5 g/dL (3.4-4.8); Alkaline Phosphatase 228 U/L (35-104); Anion Gap 11 (5-15); BUN 21 mg/dL (4-19); BUN/Creat Ratio 29.5 RATIO (10-20); Calcium,Total 8.0 mg/dL (7.6-11.0); Carbon Dioxide 25.1 mmol/L (21.0-32.0); Chloride 102 mmol/L (98-108); Cholesterol 205 mg/dL (<=200); Estimated Creatinine Clearance 52.51 ml/min (50-250); Globulin 2.9 g/dL (2.2-4.2); Glucose 120 mg/dL (70-99); Low Density Lipoprotein Calc. 129 mg/dL; Potassium 3.7 mmol/L (3.3-5.1); Triglycerides 83 mg/dL; Very Low Density Lipoprotein 17 mg/dL (5-40); cholesterol:hdl ratio screen 3.33
--- NOTE | 2025-07-07 07:18 | CON.PCM.CC_ITS ---
Assessment & Plan Assessment/Plan (1) Acute respiratory failure with hypoxia: (2) ARDS (adult respiratory distress syndrome): PLAN: Plan RECOMMENDATIONS: 1. Initiate assist-control mode mechanical ventilation. Will maintain lung protective strategy. 2. Goal to maintain plateau pressures less than 30 and driving pressure less than 15, if feasible. 3. Agree with empiric broad-spectrum antimicrobials. 4. Continue corticosteroids. 5. Precedex and fentanyl for sedation. 6. Will proceed with bedside bronchoscopy today. IMPRESSIONS: 1. Acute hypoxemic respiratory failure/ARDS The patient was just admitted to the hospital and treated for severe community- acquired pneumonia with antimicrobials and corticosteroids. She was ultimately discharged to the transitional care unit on July 02 and was readmitted on July 07 with worsening shortness of breath. Her chest imaging continues to show diffuse bilateral infiltrates, not fully explained by a cardiac etiology, with a PF ratio less than 100, consistent with ARDS. While an underlying infectious process is still a possibility, other potential etiologies include diffuse alveolar hemorrhage, AIP, eosinophilic pneumonia and possibly cryptogenic organizing pneumonia. Accordingly, we will plan to check autoimmune serologies. In the interim, the patient decompensated from a respiratory perspective and had to be intubated on the morning of July 07. Will plan to proceed with bronchoscopy with BAL. COVID, influenza and RSV PCR's were negative. I agree with continuing empiric antimicrobials, pending repeat infectious workup, along with corticosteroids. Will continue lung protective ventilatory strategy. Precedex and fentanyl will be utilized for sedation. Appropriate ICU prophylaxis will be continued. 2. History of paroxysmal atrial fibrillation/anxiety/hypertension Complicates care, management, recovery and prognosis. Continue supportive measures as noted above. Tube feeding for nutritional support can be initiated tomorrow. CODE STATUS: DNR CCA with intubation. CODE STATUS was discussed with the patient along with plan for care prior to intubation. The patient did indicate that she would not want to proceed with tracheostomy if she was unable to be weaned from invasive mechanical ventilatory support. TIME: 42 minutes of critical care time, independent of procedures, was spent addressing the patient's acute hypoxemic respiratory failure/ARDS, review of all data and collaboration with the care team. HPI Consult Data Date of Consult: 07/07/25 HPI Narrative Reason for Consultation: Acute hypoxemic respiratory failure HPI Narrative: The patient is an 80-year-old female, with a history as outlined below, who presented to the emergency department on July 06 from the transitional care unit with worsening dyspnea. The patient had just been discharged from the hospital on July 02 after having been admitted with acute hypoxemic respiratory failure secondary to severe community-acquired pneumonia. The patient, at that time, was treated with antimicrobials and corticosteroids. Her clinical and oxygenation status improved with intervention. It does appear that the patient was requiring 6 L/min of supplemental oxygen with exertion at discharge. All of the patient's prior infectious workup was unremarkable. The patient does have a known history of paroxysmal atrial fibrillation, for which she is systemically anticoagulated on Eliquis on an outpatient basis. On presentation to the emergency department, the patient was noted of a temperature of 97.1 ?F. She was otherwise hemodynamically stable but was notably tachypneic and hypoxemic. Initial laboratory evaluation revealed a white blood cell count of 20,000. Hemoglobin and platelet count were stable. An arterial blood gas was obtained on a nonrebreather and demonstrated a pH of 7.45 with a pCO2 of 43 and pO2 of 48. Chemistry profile was unremarkable. Lactate was within normal limits. Troponin was mildly elevated at 22. BNP was normal. Procalcitonin was noted to be 0.19. Urine analysis was unremarkable. Chest x-ray demonstrated significant bilateral pulmonary infiltrates. The patient was initially placed on antimicrobials and admitted to the medical intensive care unit. Early this morning, in light of the patient's work of breathing and hypoxemia, the patient was placed on BiPAP therapy after being initiated on Precedex. CODE STATUS was discussed with the patient and confirmed to be DNR CCA with intubation. Upon my arrival to the unit, the patient, despite the use of BiPAP therapy, was still notably tachypneic with increased work of breathing. I did confirm with her her wish to be intubated. I also obtained consent for bronchoscopy. Following this, the decision was made to proceed with intubation. [facility] Medical History (Updated 07/07/25 @ 08:[address] Elder Browning, DO) CKD (chronic kidney disease), stage II Anxiety Hydronephrosis of left kidney HTN (hypertension) PAF (paroxysmal atrial fibrillation) Bradycardia SVT (supraventricular tachycardia) Nonrheumatic mitral valve stenosis with insufficiency HLD (hyperlipidemia) Home Medications ?Medication ?Instructions ?Recorded ?Last Taken ?Type apixaban 5 mg tablet (Eliquis) 5 mg PO BID afib #180 t abs 09/02/24 07/06/25 Rx zolpidem 12.5 mg tablet,extended 12.5 mg PO QDAY PRN i nsomnia 03/03/25 07/05/25 History release,multiphase amiodarone 200 mg tablet 200 mg PO DAILY afib #90 tab s 06/01/25 07/06/25 Rx trazodone 50 mg tablet 50 - 100 mg PO QHS sleep 06/0607/05/25 History alprazolam 0.25 mg tablet 0.25 mg PO BID PRN 07/02/25 07/06/25 Rx Anxiety/Agitation #4 tabs ipratropium 0.5 mg-albuterol 3 mg 3 ml inhalation Q6H. RT lungs #0 mL 07/02/25 07/06/25 Rx (2.5 mg base)/3 mL nebulization soln lisinopril 10 mg tablet 10 mg PO DAILY BP #0 tabs 07/06/25 Rx loperamide 2 mg capsule 2 mg PO Q4H PRN PRN DIARRHEA #0 07/02/25 07/03/25 Rx caps acetaminophen 500 mg capsule 1,000 mg PO Q6H PRN pain 07/06/25 07/05/25 History Allergy/AdvReac Type Severity Reaction Status Date / Time Sulfa (Sulfonamide Allergy doesnt Verified 07/06/25 10:42 Antibiotics) know why Family History (Updated 07/06/25 @ 14:[address] Lisa Rashid MD) Mother Colon cancer Diabetes Father Diabetes Surgical History S/P trigger finger release Hx of shoulder surgery History of bladder suspension procedure Social History household members: none Smoking Status: Never smoker alcohol intake: never substance use type: does not use caffeine: Yes Type: coffee Number of servings: 1 ROS Review of Systems ROS Unobtainable: due to endotracheal tube Physical Exam Const Constitutional Narrative: The patient is now intubated, sedated and mechanically ventilated. She is acutely ill in appearance and fatigued. HEENT normocephalic and head/scalp atraumatic Mouth: endotracheal tube in place and OG tube in place Eyes PERRL, EOMs intact bilaterally and conjunctivae normal Neck supple General: trachea midline Chest inspection of chest normal Resp Auscultation: diminished lung sounds; Negative for rales, rhonchi or wheezes Cardio regular rate and regular rhythm GI normal to inspection, nondistended, normoactive bowel sounds Extremity no clubbing, cyanosis or edema Skin no rashes or lesions noted Neuro Sensorium / Orientation: sedated on vent Lab / Micro Data 07/07/25 05:46 07/07/25 05:46 Labs: Laboratory Results - last 24 hr 07/06/25 11:00: WBC 19.6 H, RBC 4.30, Hgb 13.2, Hct 40.5, MCV 94.2, MCH 30.7, MCHC 32.6, RDW Std Deviation 50.7 H, RDW Coeff of Hilda 14.7 H, Plt Count 327, MPV 10.3, Immature Gran % (Auto) 1.000 H, Neut % (Auto) 86.0 H, Lymph % (Auto) 6.7 L , [place] % (Auto) 5.3, Eos % (Auto) 0.8, Baso % (Auto) 0.2, Absolute Neuts (auto) 16.9 H, Absolute Lymphs (auto) 1.31, Nucleated RBC % 0, PT 16.9 H, INR 1.4, APTT 32.1, D-Dimer Quant (PE/DVT) 0.71 H*, Sodium 137, Potassium 4.2, Chloride 97 L, Carbon Dioxide 29.5, Anion Gap 11, BUN 20 H, Creatinine 0.73, Estim Creat Clear Calc 51.00, Est GFR (MDRD) Non-Af 83, BUN/Creatinine Ratio 26.9 H, Glucose 96, Calcium 9.0, Phosphorus 3.9, Magnesium 2.3 H, Troponin T High Sens 22 H D, NT pro BNP II 640 07/06/25 11:03: Lactic Acid 1.6 07/06/25 11:46: Urine Color Yellow, Urine Clarity Clear, Urine pH 7.0, Ur Specific [place] 1.010, Urine Protein 15 H, Urine Glucose (UA) Normal, Urine Ketones Negative, Urine Occult Blood 250 H, Urine Nitrite Negative, Urine Bilirubin Negative, Urine Urobilinogen 1 H, Ur Leukocyte Esterase Negative, Urine RBC 50-100 SEEN, Urine WBC 0 SEEN, Ur Squamous Epith Cells 0 SEEN, Urine Bacteria 0 SEEN, Urine Mucus 0 SEEN 07/06/25 13:10: Troponin T Hi Sens 2 Hr 23 H 07/06/25 14:55: Troponin T Hi Sens 4Hr 31 H 07/06/25 16:10: Procalcitonin 0.19 H 07/07/25 05:46: WBC 18.4 H, RBC 3.57 L, Hgb 11.2 L, Hct 33.4 L, MCV 93.6, MCH 31.4, MCHC 33.5, RDW Std Deviation 50.5 H, RDW Coeff of Hilda 14.6, Plt Count 270, MPV 10.1, Immature Gran % (Auto) 1.000 H, Neut % (Auto) 90.2 H, Lymph % (Auto) 4.4 L, [place] % (Auto) 2.8, Eos % (Auto) 1.4, Baso % (Auto) 0.2, Absolute Neuts (auto) 16.6 H, Absolute Lymphs (auto) 0.80 L, Nucleated RBC % 0, Sodium 137, Potassium 3.7, Chloride 102, Carbon Dioxide 25.1, Anion Gap 11, BUN 21 H, Creatinine 0.70, Estim Creat Clear Calc 52.51, Est GFR (MDRD) Non-Af 87, B UN/Creatinine Ratio 29.5 H, Glucose 120 H, Calcium 8.0, Total Bilirubin 1.63 H, AST 46 H, ALT 75 H, Alkaline Phosphatase 228 H, Total Protein 5.4 L, Albumin 2.5 L, Globulin 2.9, Albumin/Globulin Ratio 0.8 L, Triglycerides 83, Cholesterol 205 H, LDL Cholesterol, Calc 129, VLDL Cholesterol 17, HDL Cholesterol 62, Cholesterol/HDL Ratio 3.33, TSH 0.631 Micro: Microbiology 07/06/25 15:12 Mucosa - Nasopharyngeal Respiratory Panel (PCR) - Final 07/06/25 16:10 Nasal Secretion MRSA (PCR) - Final 07/06/25 15:12 Mucosa - Nasopharyngeal Coronavirus COVID-19 PCR - Final 07/06/25 11:46 Urine Catheter - High Streptococcus pneumoniae Antigen (M - Final 07/06/25 11:46 Urine Catheter - High Legionella Antigen - Final ABG Data ABG results: ABG 07/06/25 10:50 Specimen Type ART Sample Site R Brach pH 7.45 Bicarbonate Actual 30.3 H Total CO2 32 Base Excess 6 H O2 Saturation 85 L O2 % 15.0 ABG pCO2 43.1 ABG pO2 48 L O2 Delivery Device NRB Vent Mode Not entered Imaging Radiology Impression Chest X-Ray 07/06/25 11:25 IMPRESSION: Prominent interstitial and alveolar markings are noted in both lungs and are slightly worse when compared to the prior exam. These most likely represent pneumonic infiltrates. Small/trace pleural effusions are noted bilaterally. Emphysematous changes are noted involving both lungs. Reading Location: [id number] Charges/Coding Procedures Hospitalists Procedures: [id number] Critical Care 1st Hr
--- NOTE | 2025-07-07 07:18 | CPS ---
Decreased Vt to [address] Wilson.
--- NOTE | 2025-07-07 07:21 | PCM.PN.HOSP ---
Reason for Visit Chief Complaint: Dyspnea, orthopnea. Subjective Subjective Patient is an 80-year-old female who was admitted from the transitional care unit with hypoxia. An assessment of pneumonia with ARDS was made patient was admitted to the intensive care unit placed on noninvasive ventilation BiPAP. Patient clinical condition deteriorated further resulting in patient being intubated on the morning of 07/07/2024 Objective Data Objective Data Vital Signs: Vital Signs Temp Pulse Resp BP Pulse Ox O2 Del Method O2 Flow Rate 100.3 F H 63 27 H 120/66 97 Bi-pap 100 07/07/25 04:00 07/07/25 07:19 07/07/25 07:19 07/07/25 06:00 07/07/25 07:09 07/07/25 06:00 07/07/25 04:00 FiO2 85 07/07/25 07:09 Oxygen Flow Rate (L/min) 100 Oxygen Delivery Method Bi-pap Weight: 60.2 kg Body Mass Index (BMI) 20.8 Intake & Output: Intake and Output for Last 24 Hours 07/05/25 07/06/25 07/07/25 23:59 23:59 23:59 Intake Total 1870 / 1870 345.57 / 345.57 Output Total 1550 / 1550 350 / 350 Balance 320 / 320 -4.43 / -4.43 Lab / Micro Data 07/07/25 05:46 07/07/25 05:46 Labs: Laboratory Results - last 24 hr 07/06/25 11:00: WBC 19.6 H, RBC 4.30, Hgb 13.2, Hct 40.5, MCV 94.2, MCH 30.7, MCHC 32.6, RDW Std Deviation 50.7 H, RDW Coeff of Hilda 14.7 H, Plt Count 327, MPV 10.3, Immature Gran % (Auto) 1.000 H, Neut % (Auto) 86.0 H, Lymph % (Auto) 6.7 L, [place] % (Auto) 5.3, Eos % (Auto) 0.8, Baso % (Auto) 0.2, Absolute Neuts (auto) 16.9 H, Absolute Lymphs (auto) 1.31, Nucleated RBC % 0, PT 16.9 H, INR 1.4, APTT 32.1, D-Dimer Quant (PE/DVT) 0.71 H*, Sodium 137, Potassium 4.2, Chloride 97 L, Carbon Dioxide 29.5, Anion Gap 11, BUN 20 H, Creatinine 0.73, Estim Creat Clear Calc 51.00, Est GFR (MDRD) Non-Af 83, BUN/Creatinine Ratio 26.9 H, Glucose 96, Calcium 9.0, Phosphorus 3.9, Magnesium 2.3 H, Troponin T High Sens 22 H D, NT pro BNP II 640 07/06/25 11:03: Lactic Acid 1.6 07/06/25 11:46: Urine Color Yellow, Urine Clarity Clear, Urine pH 7.0, Ur Specific [place] 1.010, Urine Protein 15 H, Urine Glucose (UA) Normal, Urine Ketones Negative, Urine Occult Blood 250 H, Urine Nitrite Negative, Urine Bilirubin Negative, Urine Urobilinogen 1 H, Ur Leukocyte Esterase Negative, Urine RBC 50-100 SEEN, Urine WBC 0 SEEN, Ur Squamous Epith Cells 0 SEEN, Urine Bacteria 0 SEEN, Urine Mucus 0 SEEN 07/06/25 13:10: Troponin T Hi Sens 2 Hr 23 H 07/06/25 14:55: Troponin T Hi Sens 4Hr 31 H 07/06/25 16:10: Procalcitonin 0.19 H 07/07/25 05:46: WBC 18.4 H, RBC 3.57 L, Hgb 11.2 L, Hct 33.4 L, MCV 93.6, MCH 31.4, MCHC 33.5, RDW Std Deviation 50.5 H, RDW Coeff of Hilda 14.6, Plt Count 270, MPV 10.1, Immature Gran % (Auto) 1.000 H, Neut % (Auto) 90.2 H, Lymph % (Auto) 4.4 L, [place] % (Auto) 2.8, Eos % (Auto) 1.4, Baso % (Auto) 0.2, Absolute Neuts (auto) 16.6 H, Absolute Lymphs (auto) 0.80 L, Nucleated RBC % 0, Sodium 137, Potassium 3.7, Chloride 102, Carbon Dioxide 25.1, Anion Gap 11, BUN 21 H, Creatinine 0.70, Estim Creat Clear Calc 52.51, Est GFR (MDRD) Non-Af 87, BUN/Creatinine Ratio 29.5 H, Glucose 120 H, Calcium 8.0, Total Bilirubin 1.63 H, AST 46 H, ALT 75 H, Alkaline Phosphatase 228 H, Total Protein 5.4 L, Albumin 2.5 L, Globulin 2.9, Albumin/Globulin Ratio 0.8 L, Triglycerides 83, Cholesterol 205 H, LDL Cholesterol, Calc 129, VLDL Cholesterol 17, HDL Cholesterol 62, Cholesterol/HDL Ratio 3.33, TSH 0.631 Micro: Microbiology 07/06/25 15:12 Mucosa - Nasopharyngeal Respiratory Panel (PCR) - Final 07/06/25 16:10 Nasal Secretion MRSA (PCR) - Final 07/06/25 15:12 Mucosa - Nasopharyngeal Coronavirus COVID-19 PCR - Final 07/06/25 11:46 Urine Catheter - High Streptococcus pneumoniae Antigen (M - Final 07/06/25 11:46 Urine Catheter - High Legionella Antigen - Final ABG Data ABG results: ABG 07/06/25 10:50 Specimen Type ART Sample Site R Brach pH 7.45 Bicarbonate Actual 30.3 H Total CO2 32 Base Excess 6 H O2 Saturation 85 L O2 % 15.0 ABG pCO2 43.1 ABG pO2 48 L O2 Delivery Device NRB Vent Mode Not entered Radiography Diagnostic Testing: Radiology Impression Chest X-Ray 07/06/25 11:25 IMPRESSION: Prominent interstitial and alveolar markings are noted in both lungs and are slightly worse when compared to the prior exam. These most likely represent pneumonic infiltrates. Small/trace pleural effusions are noted bilaterally. Emphysematous changes are noted involving both lungs. Reading Location: [facility] Physical Exam Narrative GENERAL: Sedated on the vent HEENT: Atraumatic; normocephalic, ET tube EYES; Anicteric, Normal Conjunctiva NECK; supple, normal thyroid, RESPIRATORY: Diminished to auscultation CARDIOVASCULAR: Regular S1 S2, GI: soft, normoactive bowel sounds, : No Renal angle tenderness; EXTREMITIES: No edema, no clubbing, MUSCULOSKELETAL: no muscle wasting NEURO: Unable to assess patient on the vent SKIN: No Rash PSYCH; unable to assess Assessment & Plan Assessment/Plan (1) Acute respiratory failure with hypoxia: PLAN: Plan Patient is an 80-year-old female who was admitted from the transitional care unit with hypoxia. An assessment of pneumonia with ARDS was made patient was admitted to the intensive care unit placed on noninvasive ventilation BiPAP Acute hypoxic respiratory failure ? Secondary to pneumonia with ARDS admitted to the intensive care unit. Patient was placed on noninvasive ventilation BiPAP case was apparently discussed with patient regarding her CODE STATUS she is agreeable to brief trial of intubation. Consult placed to senior materials planner.. Patient clinical condition deteriorated resulting in patient being intubated. Case was discussed with Dr. Browning with intensive care 2. Pneumonia with suspected gram-negative organisms ? Patient presented with respiratory failure described above placed on broad-spectrum antibiotic therapy cultures sent 3. Paroxysmal A-fib ? Patient is on amiodarone as well as systemic anticoagulation with apixaban 4. Essential hypertension ? Patient is on lisinopril held following patient intubated 5.Anemia ? Secondary to chronic disorder monitoring H&H and transfuse if patient becomes symptomatic or hemoglobin falls below 7 6. DVT prophylaxis ? Patient is on apixaban Time spent in the patient's overall evaluation,decision-making process, review of diagnostic data, adjustment of management, discussion with other providers, nursing nursing and ancillary staff involved in patient's care documentation, 50 Minutes Charges/Coding Visit Charges Inpatient E&M: 45028 [facility] L3
[2025-07-07] MEDS: Midazolam 2 MG/2 ML Syringe 4 MG IV (07:42)
[2025-07-07] MEDS: fentaNYL drip 100 ML 5 MCG CONT INF (07:45)
--- NOTE | 2025-07-07 07:45 | NURSING ---
Dr. Browning at bedside, etomidate and versed given (see MAR), intubated at 0745 #7.5 ETT 23 @ lip positive color change and bilateral breath sounds, OG placed, restraints on.
--- NOTE | 2025-07-07 07:55 | RAD_ITS ---
PROCEDURE: CXR FOR LINE PLACEMENT 07/07/2025 REASON FOR EXAM: ETT/OG PLACEMENT (ETT MOVED SINCE FIRST CXR) TECHNIQUE: Procedure Code: RADCXRLP Modality: DX Procedure: CXR FOR LINE PLACEMENT COMPARISON: July 07, 2025 FINDINGS: Lines and tubes: Endotracheal tube is 3.9 cm above the helga in satisfactory position. Nasogastric tube is in place. The side hole is near the GE junction. Lungs: Mixed interstitial and airspace opacities are shown bilaterally. This is similar. Scant bilateral pleural effusions are seen. No pneumothorax. The heart is enlarged. Aorta is atherosclerotic. Sequelae of old, healed fracture of the right proximal humeral metadiaphysis. Sequelae of old healed fractures of contiguous posterior right ribs at the midthorax. RAD/CXR for Line Placement IMPRESSION: 1. Interval advancement of the endotracheal tube. This is in satisfactory pos ition. 2. Nasogastric tube is in place. Side hole is near the GE junction. Consider advancing 4-6 cm. 3. No change in the appearance of the heart and lungs. Consider interstitial edema. Underlying pneumonia would be difficult to exclude. Reading Location: [id number]
--- NOTE | 2025-07-07 07:55 | RAD_ITS ---
PROCEDURE: CXR FOR LINE PLACEMENT 07/07/2025 REASON FOR EXAM: ETT/OG PLACEMENT TECHNIQUE: Procedure Code: RADCXRLP Modality: DX Procedure: CXR FOR LINE PLACEMENT COMPARISON: Earlier the same day and 1 day prior FINDINGS: Lines and tubes: Endotracheal tube is in position approximately 6.8 cm above the helga. Nasogastric tube is in place. Side hole is near the GE junction. Heart: Heart is enlarged. Aorta is atherosclerotic Lungs: Mixed interstitial and airspace opacities bilaterally similar to prior exam. Scant bilateral pleural effusions. Bones: Old, healed fracture proximal right humerus. Multiple adjacent contiguous healed fractures posterior right midthorax. RAD/CXR for Line Placement IMPRESSION: 1. Endotracheal tube as above. Recommend advancement 3 cm. 2. Nasogastric tube in place. Consider advancing 4-6 cm for more optimal posi tioning. 3. Mixed interstitial and airspace opacities. Consider edema. Pneumonia woul d be difficult to exclude. Note: This examination was submitted for review at the same time as the 8:02 ex am. Correlate with that report before any intervention. Reading Location: [id number]
--- NOTE | 2025-07-07 07:55 | PCM.OP.PRO2 ---
Procedures Hospitalists Procedures: [id number] Insert Emergency Airway Bedside Procedural Bedside Procedure Information Date of Procedure: 07/07/25 Description of procedure: Intubation Indication: Acute hypoxemic respiratory failure Consent was obtained from: Patient The patient was placed in the appropriate sniffing position. Preoxygenated sedation via [id number] was provided for a minimum of 3 minutes. The patient had continuous cardiac as well as pulse oximetry monitoring during the procedure. Procedure sedation was provided by the administration of 4 mg of Versed and 20 mg of etomidate. Video laryngoscopy was then performed using a number 3 Mac blade, which revealed a grade 1 view. A 7.5 mm endotracheal tube was visualized advancing between the cords to the level of 23 cm at the lip. The stylette was then removed and discarded. Tube placement was confirmed by fogging in the tube along with equal and bilateral breath sounds. Colorimetric change was visualized on the CO2 meter. The cuff was then inflated and the tube secured using a commercially available device. A good pulse oximetry waveform was seen on the monitor throughout the procedure. A portable chest x-ray has been ordered to confirm appropriate placement. The patient tolerated the procedure well.
--- NOTE | 2025-07-07 08:04 | NURSING ---
first CXR done, ETT moved to 25 @ lip, second CXR confirmed placement
[2025-07-07] MEDS: Norepinephrine 8 MG in 0.9% Normal Saline (250mL Bag) 242 ML 9.4 MG CONT INF ×2 (08:59→20:14)
[2025-07-07 09:06] LABS: Base Excess 3 mmol/L (-2 to +2); FI02 100.0; PEEP 5; PO2 97 mmHG (75-100); RR 16; SITE R Brach; SO2 97 % (94-98)
--- NOTE | 2025-07-07 09:30 | FLU_PTH ---
PATIENT: SUSAN BURRELL LOC: ICU U#:[id number] AGE/SX: 80/F ROOM: ICU04 RE07/06/[address]: Dr. Chadwick Gonzalez MD : 1945 BED: 1 DIS: 07/17/2025 SPEC #: [id number] RECD: 07/07/25 11:06 STATUS: DEJAH REQ #: [id number] NELI: 07/07/25 09:[address]: Elder Browning DEPT: CYTOLOGY RECD BY: Pardeep Johnston ENTERED: 07/07/25 13:54 SP TYPE: Fluid OTHR DR: MD Dr. David Gamboa MD Dr. Autumn L White, MD Dr. Bruce Arthur, MD Dr. David Kittoe, MD Dr. David P Myers, MD Dr. Edward Matheis, MD Dr. Gautam Baskaran, MD Dr. Yordanos Habtegebriel, MD Dr. Hemant Dand, MD Dr. Jose Ochoa, MD Dr. Justin Wong, MD Dr. Kimber Foust, MD Dr. Lamia Aljundi, MD Dr. Marisa Magana, MD Dr. Mark Stutzman, DO Dr. Pritam Ghosh, MD Dr. Pavan Irukulla, MD Dr. Saad Farooqi, MD Dr. Sukhdeep Dhesi, MD Dr. Garfield Marley Dr., MD Dr. Timothy Fernstrom, MD Dr. Cristi Puente Dr., MD Tissues: A - Bronchus of right middle lobe Procedures: Special Stain Group II Surgery Specimen Level IV Cytospin Fluid HEADER OPERATION: Bronchoscopy (MAC) PRE-OP DIAGNOSIS: Acute respiratory failure with hypoxia TISSUE SUBMITTED: A- Right middle lobe BAL DIAGNOSIS CYTOLOGY A. Right middle lobe, BAL (cytospin, cellblock): - No malignant cells identified. - Acute inflammation and macrophages. - AFB and GMS stains for microorganisms are pending and will be reported in an addendum. CYTOLOGY STUDY Slides are reviewed. CYTOLOGY GROSS A. Received is 7.5 ml of [id number]-mucoid fluid labeled with the patient's name and and designated per the requisition as Right middle lobe. Submitted for cytology and cell block preparation. 07/07/2025 CPT: 38232,[id number],27020x4 ADDENDUM ADDENDUM ADDENDUM ADDENDUM ADDENDUM ADDENDUM ADDENDUM ADDENDUM ADDENDUM ADDENDUM ADDENDUM ADDENDUM ADDENDUM 07/10/2025 10:44 ADDENDUM 07/10/2025 10:44 ADDENDUM 07/10/2025 10:44 ADDENDUM 07/10/2025 10:44 ADDENDUM 07/10/2025 10:44 This addendum is to report the AFB and GMS special stains: AFB special stain is negative for acid fast bacilli. GMS special stain is negative for fungal organisms and pneumocystis organisms. All matched controls reacted appropriately. These tests were developed and their performance characteristics determined by [facility]. They may not have been cleared or approved by the U.S. Food and Drug Administration. The FDA has determined that such clearance or approval is not necessary. The above immunohistochemical markers and/or special?stains?have been reviewed by the Pathologist.
--- NOTE | 2025-07-07 09:34 | RAD_ITS ---
PROCEDURE: CXR FOR LINE PLACEMENT 07/07/2025 REASON FOR EXAM: LINE PLACEMENT TECHNIQUE: Procedure Code: RADCXRLP Modality: DX Procedure: CXR FOR LINE PLACEMENT COMPARISON: Earlier on the same day. FINDINGS: Interval placement of a right IJ catheter with its tip in the SVC. No sizable pneumothorax is identified.. Stable positioning of the ET and nasogastric tubes. Diffuse patchy opacities persist throughout both lungs compatible with airspace and possible interstitial infiltrates, unchanged from the previous study. Stable cardiomegaly. Diffuse osteopenia. Right femoral head fracture, unchanged in the of unknown age. RAD/CXR for Line Placement IMPRESSION: As above. Reading Location: [id number]
--- NOTE | 2025-07-07 09:34 | PCM.OP.PRO2 ---
Procedures Hospitalists Procedures: 49387 Insert Non-tunnel CV Cath Bedside Procedural Bedside Procedure Information Date of Procedure: 07/07/25 Description of procedure: Central Venous Catheter Indication: Hypotension Consent was obtained from: Performed emergently A time-out was completed verifying correct patient, procedure, site, positioning, and special equipment if applicable. The patient was placed in a dependent position appropriate for central line placement based on the vein to be cannulated. The patient's right neck was prepped and draped in a sterile fashion. 1% lidocaine was used to anesthetize the surrounding skin area. A triple-lumen catheter was introduced into the right IJ using the Seldinger technique and under ultrasound guidance. The catheter was threaded smoothly over the guidewire and appropriate blood return was obtained. Each lumen of the catheter was evacuated of air and flushed with sterile saline. The catheter was then sutured in place to the skin and a sterile dressing applied. Chest x-ray to confirm appropriate positioning is pending. ULTRASOUND GUIDANCE STATEMENT (Vascular Access): I performed ultrasound image acquisition and interpretation for needle placement during the procedure. The vessel was identified and found to be free of thrombosis by compression technique. A safe point of entry was marked at the skin in an angle for axis was determined. The needle was guided by obtaining free-flowing fluid and by real-time visualization.
[2025-07-07] MEDS: Chlorhexidine 15 ML PO ×2 (10:00→21:35)
--- NOTE | 2025-07-07 10:49 | NURSING ---
Updated pt's son Sy on events of the morning- intubation, central line, bronchoscopy, and sedation needs
--- NOTE | 2025-07-07 10:54 | OP.BRONCH_ITS ---
Patient Name: Alexa Root Procedure Date: 07/07/2025 10:37 AM Date of : 1945 Age: 80 Procedure: Bronchoscopy Indications: Bilateral infiltrate Providers: Elder Browning MD Complications: No immediate complications Procedure: Pre-Anesthesia Assessment: - A History and Physical has been performed. Patient meds and allergies have been reviewed. The risks and benefits of the procedure and the sedation options and risks were discussed with the patient. All questions were answered and informed consent was obtained. Patient identification and proposed procedure were verified prior to the procedure by the physician and the nurse in the procedure room. Mental Status Examination: sedated. Airway Examination: orotracheal intubation. Respiratory Examination: poor air movement. CV Examination: normal. ASA Grade Assessment: III - A patient with severe systemic disease. After reviewing the risks and benefits, the patient was deemed in satisfactory condition to undergo the procedure. The anesthesia plan was to use deep sedation / analgesia. Immediately prior to administration of medications, the patient was re-assessed for adequacy to receive sedatives. The heart rate, respiratory rate, oxygen saturations, blood pressure, adequacy of pulmonary ventilation, and response to care were monitored throughout the procedure. The physical status of the patient was re-assessed after the procedure. After I obtained informed consent, the scope was passed under direct vision. Throughout the procedure, the patient's blood pressure, pulse, and oxygen saturations were monitored continuously. The bronchoscope was introduced through the mouth, via the endotracheal tube and advanced to the tracheobronchial tree. The procedure was accomplished without difficulty. The patient tolerated the procedure well. Findings: The endotracheal tube is in good position. The visualized portion of the trachea is of normal caliber. The helga is sharp. The tracheobronchial tree was examined to at least the first subsegmental level. Bronchial mucosa and anatomy are normal. The tracheobronchial tree of the left lung was examined to at least the first subsegmental level. Bronchial mucosa and anatomy in the left lung are normal; there are no endobronchial lesions, and no secretions. Right Lung Abnormalities: Scant, mucoid secretions were found in the right mainstem bronchus. They were not obstructing the airway. The bronchoscope was advanced until wedged at the desired location for bronchoalveolar lavage. BAL was performed in the right middle lobe of the lung and sent for cell count, bacterial culture, viral smears & culture, and fungal & AFB analysis and cytology. 60 mL of fluid were instilled. 25 mL were returned. The return was cloudy. There were no mucoid plugs in the return fluid. Impression: - Bilateral infiltrate - The airway examination of the left lung was normal. - Scant, mucoid secretions were found in the right mainstem bronchus. - Bronchoalveolar lavage was performed. Recommendation: - Await BAL results. Procedure Code(s): --- Professional --- 87296, Bronchoscopy, rigid or flexible, including fluoroscopic guidance, when performed; with bronchial alveolar lavage Diagnosis Code(s): --- Professional --- R91.8, Other nonspecific abnormal finding of lung field R09.89, Other specified symptoms and signs involving the circulatory and respiratory systems CPT copyright 2021 [employer]. All rights reserved. The codes documented in this report are preliminary and upon lathe operator review may be revised to meet current compliance requirements. DO Elder Duffy MD 07/07/2025 10:54:03 AM This report has been signed electronically. Number of Addenda: 0 Note Initiated On: 07/07/2025 10:37 AM
[2025-07-07] MEDS: Pantoprazole Sodium 40 MG in 0.9% Normal Saline (100mL MB+) 100 ML 300 MG IV (10:55)
[2025-07-07] MEDS: APIXABAN 5 MG TABLET GT ×2 (10:55→21:37)
[2025-07-07] MEDS: 0.9% Saline Lock 10 ML Syringe IV ×2 (10:56→20:19)
[2025-07-07] MEDS: dexMEDEtomidine 400 MCG in 0.9% Normal Saline (100mL Bag) 96 ML 20.3 MCG CONT INF (11:19)
[2025-07-07 11:46] LABS: Cytology, Body Fluid / CSF SEE PATHOLOGY REPORT
[2025-07-07] MEDS: Acetaminophen 650 MG/20 ML UDC GT ×2 (11:55→17:25)
--- NOTE | 2025-07-07 11:58 | CASEMGMT ---
Social Work Pt does not have HCPOA on file. Phone call placed to pt son Sy and VM left requesting return call to discuss pt's advance directives. NEHAL Ivory
[2025-07-07 12:34] LABS: Red Cell Count/Body Fluid 2595 /mm3; White Blood Count/Body Fluid 335 /mm3
[2025-07-07 12:35] LABS: Appearance/Body Fluid SL CLDY; Color/Body Fluid PINK; Source- Body Fluid BRONCHIAL LAVAGE
[2025-07-07 13:20] LABS: Body Fluid QC Type(s) BF1Q,BF2Q
[2025-07-07] MEDS: fentaNYL drip 100 ML 12.5 MCG CONT INF (13:28)
[2025-07-07] MEDS: dexMEDEtomidine 400 MCG in 0.9% Normal Saline (100mL Bag) 96 ML 8.7 MCG CONT INF (17:17)
[2025-07-08] VITALS (53 sets, daily range): BP systolic 76–151; BP diastolic 51–91; PULSE 52–78; RESP 15–26; TEMP 35.8–37.9; O2SAT 87–99; BMI 20.7
[2025-07-08] MEDS: dexMEDEtomidine 400 MCG in 0.9% Normal Saline (100mL Bag) 96 ML 14.5 MCG CONT INF (01:35)
[2025-07-08 03:26] LABS: Hematocrit 36.4 % (37-47); Hemoglobin 11.9 g/dL (12.0-15.0); Immature Granulocytes Count 0.210 X10^3/uL (0.0-0.0); Mean Corp Hgb Conc 32.7 g/dL (32-36); Mean Corpuscular Volume 94.1 fL (81-99); Mean Platelet Vol. 10.0 fl (6.2-12.0); NRBC Flagged by Analyzer 0 % (0-5); Platelet Count 369 K/mm3 (150-450); RBC Distribution Width CV 14.6 % (11.6-14.6); RBC Distribution Width SD 50.4 fl (35.1-43.9); Red Blood Count 3.87 M/mm3 (4.2-5.4); White Blood Count 19.5 K/mm3 (4.4-11.0)
[2025-07-08 03:52] LABS: Anion Gap 10 (5-15); BUN 25 mg/dL (4-19); BUN/Creat Ratio 34.4 RATIO (10-20); Calcium,Total 7.9 mg/dL (7.6-11.0); Carbon Dioxide 25.2 mmol/L (21.0-32.0); Chloride 105 mmol/L (98-108); Estimated Creatinine Clearance 52.51 ml/min (50-250); Glucose 193 mg/dL (70-99); Magnesium 2.3 mg/dL (1.5-2.2); Potassium 3.7 mmol/L (3.3-5.1); Vancomycin, Trough Level 15.1 ug/mL (5.0-15.0)
--- NOTE | 2025-07-08 04:02 | PCM.RX.CS ---
Consult Antibiotic Management Pharmacy has been consulted to manage selected antibiotic: Vancomycin Type of Intervention Type of Consult: Follow-up Suspected Infection Suspected Infection: Pneumonia Labs Labs: Sodium 140 mmol/L (133-145) 07/08/25 03:15 Potassium 3.7 mmol/L (3.3-5.1) 07/08/25 03:15 Chloride 105 mmol/L (98-108) 07/08/25 03:15 Carbon Dioxide 25.2 mmol/L (21.0-32.0) 07/08/25 03:15 Anion Gap 10 (5-15) 07/08/25 03:15 BUN 25 mg/dL (4-19) H 07/08/25 03:15 Creatinine 0.74 mg/dL (0.70-1.20) 07/08/25 03:15 Est GFR (MDRD) Non-Af 82 (>60) 07/08/25 03:15 BUN/Creatinine Ratio 34.4 RATIO (10-20) H 07/08/25 03:15 Glucose 193 mg/dL (70-99) H 07/08/25 03:15 Vancomycin Trough 15.1 ug/mL (5.0-15.0) H 07/08/25 03:15 Microbiology Microbiology: Microbiology 07/07/25 08:35 Sputum, Induced/Lukens Gram Stain - Final 07/06/25 15:12 Mucosa - Nasopharyngeal Respiratory Panel (PCR) - Final 07/06/25 16:10 Nasal Secretion MRSA (PCR) - Final 07/06/25 15:12 Mucosa - Nasopharyngeal Coronavirus COVID-19 PCR - Final 07/06/25 11:46 Urine Catheter - High Streptococcus pneumoniae Antigen (M - Final 07/06/25 11:46 Urine Catheter - High Legionella Antigen - Final Dosing Weight Weight used for dosin.1 kg Estimated Creatinine Clearance Estimated Creatinine Clearance: 53 Goal Trough Goal Trough: 15-20 mcg/mL Pharmacy Plan for Drug Dosing Pharmacy Plan for Drug Dosing: Vancomycin trough level of 15.1, drawn 10.75hrs post-dose, was within the target range of 15-20. Will continue dosing at 1000mg q12h, and will draw another trough level in two days. Pharmacy Service will continue to monitor and adjust dosing as required. Follow-Up Labs Follow-Up Labs: Trough: Vancomycin Date/Time Labs Ordered Labs to be done on [date and time ordered]: 07/10/25 @3011
[2025-07-08] MEDS: fentaNYL drip 100 ML 7.5 MCG CONT INF (04:05)
[2025-07-08] MEDS: 0.9% Saline Lock 10 ML Syringe IV ×3 (04:06→17:13)
[2025-07-08] MEDS: Vancomycin HCl 1,000 MG in 0.9% Normal Saline (250mL Bag) 250 ML 250 MG IV ×2 (04:06→15:27)
--- NOTE | 2025-07-08 05:00 | RAD_ITS ---
PROCEDURE: CHEST 1 VIEW (PORTABLE) 07/08/2025 REASON FOR EXAM: RESPIRATORY FAILURE TECHNIQUE: Frontal view of the chest. COMPARISON: 07/07/2025 FINDINGS: Hardware: ETT present with the tip 3.3 cm above helga. The nasogastric tube is noted extending below the diaphragm. A central venous catheter is present through a right IJ approach with the tip in the superior vena cava. Heart: Cardiomegaly. Tortuous atherosclerotic aorta. Lungs: Diffuse airspace opacities throughout the lung similar to previous exam. No pneumothorax. No effusion. Bones: Stable with healing fracture of the right humeral head RAD/Chest 1 View (Portable) IMPRESSION: Stable good position of the support apparatus including ETT NG tube and central line. Extensive consolidation and airspace disease throughout the lungs similar to pr evious exam. No pneumothorax. Reading Location: [facility]
[2025-07-08 05:25] LABS: Allen Test Positive; Base Excess 2 mmol/L (-2 to +2); FI02 50.0; PEEP 5; PO2 52 mmHG (75-100); RR 16; SITE R Radial; SO2 86 % (94-98)
[2025-07-08] MEDS: Piperacil/Tazobactam 3.375 GM in 0.9% Normal Saline (50mL MB+) 50 ML IV ×3 (05:49→21:32)
[2025-07-08] MEDS: CHLORHEXIDINE GLUC 2% CLOTH 1 EACH TOWELETTE TOPICAL (05:50)
--- NOTE | 2025-07-08 07:02 | PN.CC_ITS ---
Assessment & Plan Assessment/Plan (1) Acute respiratory failure with hypoxia: (2) ARDS (adult respiratory distress syndrome): PLAN: Plan RECOMMENDATIONS: 1. Continue assist-control mode mechanical ventilation. Will maintain lung protective strategy. 2. Goal to maintain plateau pressures less than 30 and driving pressure less than 15, if feasible. 3. Agree with empiric broad-spectrum antimicrobials, pending culture results. 4. Continue corticosteroids. 5. Precedex and fentanyl for sedation. 6. Okay to initiate tube feeding today for nutritional support. 7. Continue appropriate ICU prophylaxis. IMPRESSIONS: 1. Acute hypoxemic respiratory failure/ARDS The patient was just admitted to the hospital and treated for severe community- acquired pneumonia with antimicrobials and corticosteroids. She was ultimately discharged to the transitional care unit on July 02 and was readmitted on July 07 with worsening shortness of breath. Her chest imaging continues to show diffuse bilateral infiltrates, not fully explained by a cardiac etiology, with a PF ratio less than 100, consistent with ARDS. While an underlying infectious process is still a possibility, other potential etiologies include diffuse alveolar hemorrhage, AIP, eosinophilic pneumonia and possibly cryptogenic organizing pneumonia. Autoimmune serologies are currently pending. Bronchoscopy was performed on July 07, with cultures pending. COVID, influenza and RSV PCR's were negative. I agree with continuing empiric antimicrobials, pending repeat infectious workup, along with corticosteroids. Will continue lung protective ventilatory strategy. Precedex and fentanyl will be utilized for sedation. Appropriate ICU prophylaxis will be continued. Tube feeding will be initiated today for nutritional support. 2. History of paroxysmal atrial fibrillation/anxiety/hypertension Complicates care, management, recovery and prognosis. Continue supportive measures as noted above. CODE STATUS: DNR CCA with intubation. CODE STATUS was discussed with the patient along with plan for care prior to intubation. The patient did indicate that she would not want to proceed with tracheostomy if she was unable to be weaned from invasive mechanical ventilatory support. TIME: 37 minutes of critical care time, independent of procedures, was spent addressing the patient's acute hypoxemic respiratory failure/ARDS, review of all data and collaboration with the care team. Subjective Subjective The patient was seen and examined at the bedside this morning. Events from the last 24 hours have been reviewed. The patient is currently afebrile and hemodynamically stable on Levophed at 3 mcg/min. She remains on assist-control mode of mechanical ventilation with an FiO2 requirement of 50%. White blood cell count is elevated at 20,000 with a hemoglobin of 11.9 g/dL. Platelet count is within normal limits. Arterial blood gas this morning was notable for a pH of 7.39 with a pCO2 of 45 and pO2 of 52. Creatinine is within normal limits. Objective Data Objective Data The patient's most recent lab work, culture data and imaging studies have all been personally reviewed. Surface echocardiogram revealed normal LV size and function with an ejection fraction of 65%. Respiratory viral panel was negative. COVID PCR was negative. Bronchial washing cultures are pending. Vital Signs: Vital Signs Temp Pulse Resp BP Pulse Ox O2 Del Method O2 Flow Rate 98.3 F 52 L 18 146/79 H 94 Mechanical Ventilator 100 07/08/25 07:00 07/08/25 07:00 07/08/25 07:00 07/08/25 07:00 07/08/25 07:00 07/08/25 07:00 07/07/25 04:00 FiO2 50 07/08/25 07:00 Oxygen Flow Rate (L/min) 100 Oxygen Delivery Method Mechanical Ventilator Weight: 132 lb 7.965 oz Body Mass Index (BMI) 20.7 Intake & Output: Intake and Output for Last 24 Hours 07/06/25 07/07/25 07/08/25 23:59 23:59 23:59 Intake Total 1870 / 1870 1459.92 / 1491.32 518.46 / 518.46 Output Total 1550 / 1550 675 / 675 850 / 850 Balance 320 / 320 784.92 / 816.32 -331.54 / -331.54 Lab / Micro Data Attestation: I reviewed the patient's lab results. 07/08/25 03:15 07/08/25 03:15 Labs: Laboratory Results - last 24 hr 07/07/25 08:45: Rheumatoid Factor 15.1 H, NASH-1 Antibody TNP, Scl-70 Scleroderma Ab TNP, Antichromatin Antibodies TNP, Centromere B Antibody TNP 07/07/25 11:01: Fluid Source BRONCHIAL LAVAGE, Fluid Color PINK, Fluid Appearance SL CLDY, Fluid WBC 335, Fluid RBC 2595, Fluid Tot Cell Count Not Reportable, Fluid Neutrophils 89, Fluid Lymphocytes 7, Fluid Monocytes 4, Fl Pathologist Comment Reviewed, Fluid Comment 2 Not Reportable 07/08/25 03:15: WBC 19.5 H, RBC 3.87 L, Hgb 11.9 L, Hct 36.4 L, MCV 94.1, MCH 30.7, MCHC 32.7, RDW Std Deviation 50.4 H, RDW Coeff of Hilda 14.6, Plt Count 369, MPV 10.0, Immature Gran % (Auto) 1.100 H, Neut % (Auto) 90.3 H, Lymph % (Auto) 5.6 L, [place] % (Auto) 2.8, Eos % (Auto) 0.0, Baso % (Auto) 0.2, Absolute Neuts (auto) 17.7 H, Absolute Lymphs (auto) 1.10, Nucleated RBC % 0, Sodium 140, Potassium 3.7, Chloride 105, Carbon Dioxide 25.2, Anion Gap 10, BUN 25 H, Creatinine 0.74, Estim Creat Clear Calc 52.51, Est GFR (MDRD) Non-Af 82, B UN/Creatinine Ratio 34.4 H, Glucose 193 H, Calcium 7.9, Phosphorus 2.6 L, M agnesium 2.3 H, Vancomycin Trough 15.1 H Micro: Microbiology 07/07/25 08:35 Sputum, Induced/Lukens Gram Stain - Final 07/06/25 15:12 Mucosa - Nasopharyngeal Respiratory Panel (PCR) - Final 07/06/25 16:10 Nasal Secretion MRSA (PCR) - Final 07/06/25 15:12 Mucosa - Nasopharyngeal Coronavirus COVID-19 PCR - Final 07/06/25 11:46 Urine Catheter - High Streptococcus pneumoniae Antigen (M - Final 07/06/25 11:46 Urine Catheter - High Legionella Antigen - Final ABG Data ABG results: ABG 07/07/25 07/08/25 09:02 05:20 Specimen Type ART ART Sample Site R Brach R Radial pH 7.35 7.39 Bicarbonate Actual 29.0 H 27.4 H Total CO2 31 29 Base Excess 3 H 2 O2 Saturation 97 86 L O2 % 100.0 50.0 ABG pCO2 52.0 H 45.5 H ABG pO2 97 52 L Herve Test Positive Respiration Rate 16 16 O2 Delivery Device Adult Vent Adult Vent Vent Mode AC AC Tidal Volume 400.0 400.0 POC PEEP 5 5 Radiography Diagnostic Testing: Radiology Impression Echocardiogram 07/06/25 15:03 Interpretation Summary Normal LV size. Left ventricular systolic function is normal. The left ventricular ejection fraction is 65 %. Mild mitral valve prolapse. Ordering Physician: iLsa Rashid Referring Physician: Wilson Smalls Performed By: Juana Nguyen RDCS Chest X-Ray 07/07/25 07:55 IMPRESSION: 1. Endotracheal tube as above. Recommend advancement 3 cm. 2. Nasogastric tube in place. Consider advancing 4-6 cm for more optimal positioning. 3. Mixed interstitial and airspace opacities. Consider edema. Pneumonia would be difficult to exclude. Note: This examination was submitted for review at the same time as the 8:02 exam. Correlate with that report before any intervention. Reading Location: [id number] Chest X-Ray 07/07/25 07:55 IMPRESSION: 1. Interval advancement of the endotracheal tube. This is in satisfactory position. 2. Nasogastric tube is in place. Side hole is near the GE junction. Consider advancing 4-6 cm. 3. No change in the appearance of the heart and lungs. Consider interstitial edema. Underlying pneumonia would be difficult to exclude. Reading Location: [facility] Chest X-Ray 07/07/25 09:34 IMPRESSION: As above. Reading Location: [facility] Chest X-Ray 07/08/25 05:00 IMPRESSION: Stable good position of the support apparatus including ETT NG tube and central line. Extensive consolidation and airspace disease throughout the lungs similar to previous exam. No pneumothorax. Reading Location: [id number] Physical Exam Const Constitutional Narrative: Intubated, sedated and mechanically ventilated. No ventilator dyssynchrony noted. General Appearance: ill appearing and patient mechanically ventilated HEENT normocephalic and head/scalp atraumatic Mouth: endotracheal tube in place and OG tube in place Eyes PERRL, EOMs intact bilaterally and conjunctivae normal Neck supple General: trachea midline Chest inspection of chest normal Resp Auscultation: diminished lung sounds; Negative for rales, rhonchi or wheezes Cardio regular rate and regular rhythm GI normal to inspection, nondistended, normoactive bowel sounds Extremity no clubbing, cyanosis or edema Skin no rashes or lesions noted Neuro Sensorium / Orientation: sedated on vent Charges/Coding Procedures Hospitalists Procedures: [id number] Critical Care 1st Hr
--- NOTE | 2025-07-08 07:07 | PCM.PN.HOSP ---
Reason for Visit Chief Complaint: Dyspnea, orthopnea. Subjective Subjective Patient seen remains on the vent.Patient underwent bronchoscopy the day prior results and findings as below. Objective Data Objective Data Vital Signs: Vital Signs Temp Pulse Resp BP Pulse Ox O2 Del Method O2 Flow Rate 98.3 F 52 L 18 146/79 H 94 Mechanical Ventilator 100 07/08/25 07:00 07/08/25 07:00 07/08/25 07:00 07/08/25 07:00 07/08/25 07:00 07/08/25 07:00 07/07/25 04:00 FiO2 50 07/08/25 07:00 Oxygen Flow Rate (L/min) 100 Oxygen Delivery Method Mechanical Ventilator Weight: 60.1 kg Body Mass Index (BMI) 20.7 Intake & Output: Intake and Output for Last 24 Hours 07/06/25 07/07/25 07/08/25 23:59 23:59 23:59 Intake Total 1870 / 1870 1459.92 / 1491.32 545.06 / 545.06 Output Total 1550 / 1550 675 / 675 850 / 850 Balance 320 / 320 784.92 / 816.32 -304.94 / -304.94 Lab / Micro Data 07/08/25 03:15 07/08/25 03:15 Labs: Laboratory Results - last 24 hr 07/07/25 08:45: Rheumatoid Factor 15.1 H, NASH-1 Antibody TNP, Scl-70 Scleroderma Ab TNP, Antichromatin Antibodies TNP, Centromere B Antibody TNP 07/07/25 11:01: Fluid Source BRONCHIAL LAVAGE, Fluid Color PINK, Fluid Appearance SL CLDY, Fluid WBC 335, Fluid RBC 2595, Fluid Tot Cell Count Not Reportable, Fluid Neutrophils 89, Fluid Lymphocytes 7, Fluid Monocytes 4, Fl Pathologist Comment Reviewed, Fluid Comment 2 Not Reportable 07/08/25 03:15: WBC 19.5 H, RBC 3.87 L, Hgb 11.9 L, Hct 36.4 L, MCV 94.1, MCH 30.7, MCHC 32.7, RDW Std Deviation 50.4 H, RDW Coeff of Hilda 14.6, Plt Count 369, MPV 10.0, Immature Gran % (Auto) 1.100 H, Neut % (Auto) 90.3 H, Lymph % (Auto) 5.6 L, [place] % (Auto) 2.8, Eos % (Auto) 0.0, Baso % (Auto) 0.2, Absolute Neuts (auto) 17.7 H, Absolute Lymphs (auto) 1.10, Nucleated RBC % 0, Sodium 140, Potassium 3.7, Chloride 105, Carbon Dioxide 25.2, Anion Gap 10, BUN 25 H, Creatinine 0.74, Estim Creat Clear Calc 52.51, Est GFR (MDRD) Non-Af 82, BUN/Creatinine Ratio 34.4 H, Glucose 193 H, Calcium 7.9, Phosphorus 2.6 L, Magnesium 2.3 H, Vancomycin Trough 15.1 H Micro: Microbiology 07/07/25 08:35 Sputum, Induced/Lukens Gram Stain - Final 07/06/25 15:12 Mucosa - Nasopharyngeal Respiratory Panel (PCR) - Final 07/06/25 16:10 Nasal Secretion MRSA (PCR) - Final 07/06/25 15:12 Mucosa - Nasopharyngeal Coronavirus COVID-19 PCR - Final 07/06/25 11:46 Urine Catheter - High Streptococcus pneumoniae Antigen (M - Final 07/06/25 11:46 Urine Catheter - High Legionella Antigen - Final ABG Data ABG results: ABG 07/07/25 07/08/25 09:02 05:20 Specimen Type ART ART Sample Site R Brach R Radial pH 7.35 7.39 Bicarbonate Actual 29.0 H 27.4 H Total CO2 31 29 Base Excess 3 H 2 O2 Saturation 97 86 L O2 % 100.0 50.0 ABG pCO2 52.0 H 45.5 H ABG pO2 97 52 L Herve Test Positive Respiration Rate 16 16 O2 Delivery Device Adult Vent Adult Vent Vent Mode AC AC Tidal Volume 400.0 400.0 POC PEEP 5 5 Radiography Diagnostic Testing: Radiology Impression Echocardiogram 07/06/25 15:03 Interpretation Summary Normal LV size. Left ventricular systolic function is normal. The left ventricular ejection fraction is 65 %. Mild mitral valve prolapse. Ordering Physician: Lisa Rashid Referring Physician: Wilson Smalls Performed By: Juana Nguyen RDCS Chest X-Ray 07/07/25 07:55 IMPRESSION: 1. Endotracheal tube as above. Recommend advancement 3 cm. 2. Nasogastric tube in place. Consider advancing 4-6 cm for more optimal positioning. 3. Mixed interstitial and airspace opacities. Consider edema. Pneumonia would be difficult to exclude. Note: This examination was submitted for review at the same time as the 8:02 exam. Correlate with that report before any intervention. Reading Location: [facility] Chest X-Ray 07/07/25 07:55 IMPRESSION: 1. Interval advancement of the endotracheal tube. This is in satisfactory position. 2. Nasogastric tube is in place. Side hole is near the GE junction. Consider advancing 4-6 cm. 3. No change in the appearance of the heart and lungs. Consider interstitial edema. Underlying pneumonia would be difficult to exclude. Reading Location: [facility] Chest X-Ray 07/07/25 09:34 IMPRESSION: As above. Reading Location: [id number] Chest X-Ray 07/08/25 05:00 IMPRESSION: Stable good position of the support apparatus including ETT NG tube and central line. Extensive consolidation and airspace disease throughout the lungs similar to previous exam. No pneumothorax. Reading Location: [facility] Physical Exam Narrative GENERAL: On the vent but opens eye to tactile and vocal stimulation HEENT: Atraumatic; normocephalic, ET tube EYES; Anicteric, Normal Conjunctiva NECK; supple, normal thyroid, RESPIRATORY: Diminished to auscultation CARDIOVASCULAR: Regular S1 S2, GI: soft, normoactive bowel sounds, : No Renal angle tenderness; EXTREMITIES: No edema, no clubbing, MUSCULOSKELETAL: no muscle wasting NEURO: Unable to assess patient on the vent SKIN: No Rash PSYCH; unable to assess Assessment & Plan Assessment/Plan (1) Acute respiratory failure with hypoxia: PLAN: Plan Patient is an 80-year-old female who was admitted from the transitional care unit with hypoxia. An assessment of pneumonia with ARDS was made patient was admitted to the intensive care unit placed on noninvasive ventilation BiPAP 1. Acute hypoxic respiratory failure ? Secondary to pneumonia with ARDS admitted to the intensive care unit. Patient was placed on noninvasive ventilation BiPAP case was apparently discussed with patient regarding her CODE STATUS she is agreeable to brief trial of intubation. Consult placed to transfer driver.. Patient clinical condition deteriorated resulting in patient being intubated. Case was discussed with Dr. Browning with intensive care ? 07/08/2025; patient underwent bronchoscopy the day prior findings as below Bilateral infiltrate, The airway examination of the left lung was normal. Scant, mucoid secretions were found in the right mainstem bronchus. Bronchoalveolar lavage was performed.. Patient WBC count remains elevated. Patient remains on the vent. Vent adjustment deferred to transfer driver 2. Pneumonia with suspected gram-negative organisms ? Patient presented with respiratory failure described above placed on broad-spectrum antibiotic therapy cultures sent 3. Septic shock ? Secondary to pneumonia patient had to be started on norepinephrine in addition to hydrocortisone. Remains on broad-spectrum antibiotic therapy with piperacillin/tazobactam as well as vancomycin 4. Paroxysmal A-fib ? Patient is on amiodarone as well as systemic anticoagulation with apixaban 5. Essential hypertension ? Patient is on lisinopril held following patient intubated 6.Anemia ? Secondary to chronic disorder monitoring H&H and transfuse if patient becomes symptomatic or hemoglobin falls below 7 7. DVT prophylaxis ? Patient is on apixaban Time spent in the patient's overall evaluation,decision-making process, review of diagnostic data, adjustment of management, discussion with other providers, nursing nursing and ancillary staff involved in patient's care documentation, 52 Minutes Charges/Coding Visit Charges Inpatient E&M: [id number] [place] [id number]
[2025-07-08] MEDS: APIXABAN 5 MG TABLET GT (10:03)
[2025-07-08] MEDS: Chlorhexidine 15 ML PO ×2 (10:03→21:32)
[2025-07-08] MEDS: Pantoprazole Sodium 40 MG in 0.9% Normal Saline (100mL MB+) 100 ML 300 MG IV (10:04)
[2025-07-08] MEDS: Vital AF 1.2 Cal Liquid 1,000 ML 20 ML GT (10:04)
[2025-07-08] MEDS: dexMEDEtomidine 400 MCG in 0.9% Normal Saline (100mL Bag) 96 ML 15 MCG CONT INF ×3 (10:17→23:41)
--- NOTE | 2025-07-08 12:56 | WOUNDNOTE ---
wound photo: sacrum
[2025-07-08 13:08] LABS: Cytoplasmic Ab (C-ANCA) <1:20 titer (Neg:<1:20); Perinuclear Ab (P-ANCA) <1:20 titer (Neg:<1:20)
[2025-07-08] MEDS: 0.9% Normal Saline (250mL Bag) 250 ML 15 ML IV ×2 (13:49→14:47)
[2025-07-08 14:09] LABS: ANTINUCLEAR ANTIBODIES DIRECT Negative (Negative)
[2025-07-08] MEDS: fentaNYL drip 100 ML 10 MCG CONT INF (15:46)
[2025-07-08 15:47] LABS: Pathologist Comment/Body Fluid Reviewed
[2025-07-08 16:09] LABS: Mycoplasma pneum. AB IgM < 770 U/mL (0-769)
--- NOTE | 2025-07-08 19:00 | NURSING ---
Transferred to [facility] low air loss mattress, pt tolerated well
[2025-07-09] VITALS (35 sets, daily range): BP systolic 98–153; BP diastolic 61–95; PULSE 55–82; RESP 10–25; TEMP 37.5–38.4; O2SAT 91–100; BMI 27.9
[2025-07-09] MEDS: fentaNYL drip 100 ML 10 MCG CONT INF (01:47)
--- NOTE | 2025-07-09 03:18 | EKG12_ITS ---
Test Reason : T WAVE CHANGES Blood Pressure : */* mmHG Vent. Rate : 75 BPM Atrial Rate : 78 BPM P-R Int : * ms QRS Dur : 148 ms QT Int : 474 ms P-R-T Axes : * 80 36 degrees QTcB Int : 529 ms Undetermined rhythm Right bundle branch block T wave abnormality, consider lateral ischemia Abnormal ECG When compared with ECG of 06-Jul-2025 11:23, Current undetermined rhythm precludes rhythm comparison, needs review Artifacts Confirmed by ANABELA ACUÑA ([id number]), movie editor ROB CARUSO ([id number]) on 07/13/2025 8:23:01 AM Referred By: BRYCE Confirmed By: ANABELA ACUÑA
[2025-07-09 03:35] LABS: Hematocrit 33.8 % (37-47); Hemoglobin 10.9 g/dL (12.0-15.0); Immature Granulocytes Count 0.140 X10^3/uL (0.0-0.0); Mean Corp Hgb Conc 32.2 g/dL (32-36); Mean Corpuscular Volume 95.5 fL (81-99); Mean Platelet Vol. 10.1 fl (6.2-12.0); NRBC Flagged by Analyzer 0 % (0-5); Platelet Count 303 K/mm3 (150-450); RBC Distribution Width CV 14.7 % (11.6-14.6); RBC Distribution Width SD 51.6 fl (35.1-43.9); Red Blood Count 3.54 M/mm3 (4.2-5.4); White Blood Count 17.9 K/mm3 (4.4-11.0)
[2025-07-09 04:05] LABS: Anion Gap 8 (5-15); BUN 29 mg/dL (4-19); BUN/Creat Ratio 56.3 RATIO (10-20); Calcium,Total 8.0 mg/dL (7.6-11.0); Carbon Dioxide 26.3 mmol/L (21.0-32.0); Chloride 109 mmol/L (98-108); Estimated Creatinine Clearance 52.51 ml/min (50-250); Glucose 161 mg/dL (70-99); Potassium 3.5 mmol/L (3.3-5.1)
[2025-07-09] MEDS: dexMEDEtomidine 400 MCG in 0.9% Normal Saline (100mL Bag) 96 ML 22.5 MCG CONT INF (04:35)
[2025-07-09] MEDS: Vancomycin HCl 1,000 MG in 0.9% Normal Saline (250mL Bag) 250 ML 250 MG IV ×2 (04:35→16:26)
--- NOTE | 2025-07-09 05:23 | PN.CC_ITS ---
Assessment & Plan Assessment/Plan (1) Acute respiratory failure with hypoxia: (2) ARDS (adult respiratory distress syndrome): PLAN: Plan RECOMMENDATIONS: 1. Continue assist-control mode mechanical ventilation. Will maintain lung protective strategy. 2. Goal to maintain plateau pressures less than 30 and driving pressure less than 15, if feasible. 3. Continue empiric antimicrobials and corticosteroids. 4. Continue chest tube to wall suction. 5. Obtain follow-up ABG and chest x-ray in the morning. 6. Continue current sedation regimen. 7. Resume tube feeding for nutritional support. 8. Continue appropriate ICU prophylaxis. IMPRESSIONS: 1. Acute hypoxemic respiratory failure/ARDS The patient was just admitted to the hospital and treated for severe community- acquired pneumonia with antimicrobials and corticosteroids. She was ultimately discharged to the transitional care unit on July 02 and was readmitted on July 07 with worsening shortness of breath. Her chest imaging continues to show diffuse bilateral infiltrates, not fully explained by a cardiac etiology, with a PF ratio less than 100, consistent with ARDS. While an underlying infectious process is still a possibility, other potential etiologies include diffuse alveolar hemorrhage, AIP, eosinophilic pneumonia and possibly cryptogenic organizing pneumonia. Autoimmune serologies are currently pending. Bronchoscopy was performed on July 07, with cultures pending. COVID, influenza and RSV PCR's were negative. I agree with continuing empiric antimicrobials, pending repeat infectious workup, along with corticosteroids. Will continue lung protective ventilatory strategy. Precedex and fentanyl will be utilized for sedation. Appropriate ICU prophylaxis will be continued. Tube feeding will be initiated today for nutritional support. 2. Spontaneous pneumothorax The patient developed a spontaneous pneumothorax on July 09, which required chest tube placement. Recommend continuing chest tube to wall suction. Attempt to minimize PEEP as tolerated. Obtain follow-up chest x-ray in the morning. 3. History of paroxysmal atrial fibrillation/anxiety/hypertension Complicates care, management, recovery and prognosis. Continue supportive measures as noted above. CODE STATUS: DNR CCA with intubation. CODE STATUS was discussed with the patient along with plan for care prior to intubation. The patient did indicate that she would not want to proceed with tracheostomy if she was unable to be weaned from invasive mechanical ventilatory support. TIME: 39 minutes of critical care time, independent of procedures, was spent addressing the patient's acute hypoxemic respiratory failure/ARDS, spontaneous pneumothorax, review of all data and collaboration with the care team. Subjective Subjective The patient was seen and examined at the bedside this morning. Events from the last 24 hours have been reviewed. Overnight, the patient apparently became dyssynchronous with the ventilator with increasing oxygen requirement. Additional sedation was added to the patient's regimen and her ventilator requirements were increased to an FiO2 of 80% and PEEP of 10. A chest x-ray was obtained, which unfortunately demonstrated a spontaneous pneumothorax on the right. A small bore chest tube was subsequently placed. The patient is currently documented to be overall net +1.8 L for the hospitalization. White blood cell count is elevated at 18,000. Arterial blood gas was notable for a pH of 7.35 with a pCO2 of 53 and pO2 of 55. Creatinine is within normal limits. Objective Data Objective Data The patient's most recent lab work, culture data and imaging studies have all been personally reviewed. Surface echocardiogram revealed normal LV size and function with an ejection fraction of 65%. Respiratory viral panel was negative. COVID PCR was negative. Bronchial washing cultures are pending. Vital Signs: Vital Signs Temp Pulse Resp BP Pulse Ox O2 Del Method O2 Flow Rate 97.1 F L 82 20 H 131/75 H 94 Mechanical Ventilator 100 07/08/25 22:00 07/09/25 04:26 07/09/25 04:26 07/08/25 23:00 07/09/25 04:26 07/09/25 00:00 07/07/25 04:00 FiO2 85 07/09/25 04:26 Oxygen Flow Rate (L/min) 100 Oxygen Delivery Method Mechanical Ventilator Weight: 132 lb 7.965 oz Body Mass Index (BMI) 20.7 Intake & Output: Intake and Output for Last 24 Hours 07/07/25 07/08/25 07/09/25 23:59 23:59 23:59 Intake Total 1459.92 / 1491.32 1925.61 / 1960.36 184.56 / 184.56 Output Total 675 / 675 1330 / 1380 250 / 250 Balance 784.92 / 816.32 595.61 / 580.36 -65.44 / -65.44 Lab / Micro Data Attestation: I reviewed the patient's lab results. 07/09/25 03:25 07/09/25 03:25 Labs: Laboratory Results - last 24 hr 07/07/25 08:45: Cycl Citrul Peptide IgG 10, TARA Screen Negative, c-ANCA Antibody <1:20, Atypical p-ANCA <1:20, p-ANCA Antibody <1:20, SS-A/Ro IgG Antibody TNP, SS-B/La IgG Antibody TNP, Double Strand DNA Ab TNP, Mycoplasma pneumon IgG < 100, Mycoplasma pneumon IgM < 770 07/07/25 11:01: Fl Pathologist Comment Reviewed 07/09/25 03:25: WBC 17.9 H, RBC 3.54 L, Hgb 10.9 L, Hct 33.8 L, MCV 95.5, MCH 30.8, MCHC 32.2, RDW Std Deviation 51.6 H, RDW Coeff of Hilda 14.7 H, Plt Count 303, MPV 10.1, Immature Gran % (Auto) 0.800, Neut % (Auto) 92.1 H, Lymph % (Auto) 4.0 L, [place] % (Auto) 3.0, Eos % (Auto) 0.0, Baso % (Auto) 0.1, Absolute Neuts (auto) 16.4 H, Absolute Lymphs (auto) 0.72 L, Nucleated RBC % 0, Sodium 142, Potassium 3.5, Chloride 109 H, Carbon Dioxide 26.3, Anion Gap 8, BUN 29 H, Creatinine 0.52 L, Estim Creat Clear Calc 52.51, Est GFR (MDRD) Non-Af 94, B UN/Creatinine Ratio 56.3 H, Glucose 161 H, Calcium 8.0 Micro: Microbiology 07/07/25 11:01 Bronchial Lavage - Bronchial Gram Stain - Final 07/07/25 11:01 Bronchial Lavage - Bronchial Respiratory Culture - Preliminary Culture exhibits no growth. 07/06/25 11:55 Blood Culture (Wb) - Left Wrist Blood Culture - Preliminary No growth in 48 hours. 07/06/25 11:59 Blood Culture (Wb) - Right Hand Blood Culture - Preliminary No growth in 48 hours. 07/07/25 08:35 Sputum, Induced/Lukens Gram Stain - Final 07/06/25 15:12 Mucosa - Nasopharyngeal Respiratory Panel (PCR) - Final 07/06/25 16:10 Nasal Secretion MRSA (PCR) - Final 07/06/25 15:12 Mucosa - Nasopharyngeal Coronavirus COVID-19 PCR - Final 07/06/25 11:46 Urine Catheter - High Streptococcus pneumoniae Antigen (M - Final 07/06/25 11:46 Urine Catheter - High Legionella Antigen - Final ABG Data ABG results: ABG 07/08/25 05:20 Specimen Type ART Sample Site R Radial pH 7.39 Bicarbonate Actual 27.4 H Total CO2 29 Base Excess 2 O2 Saturation 86 L O2 % 50.0 ABG pCO2 45.5 H ABG pO2 52 L Herve Test Positive Respiration Rate 16 O2 Delivery Device Adult Vent Vent Mode AC Tidal Volume 400.0 POC PEEP 5 Radiography Diagnostic Testing: Radiology Impression Chest X-Ray 07/08/25 05:00 IMPRESSION: Stable good position of the support apparatus including ETT NG tube and central line. Extensive consolidation and airspace disease throughout the lungs similar to previous exam. No pneumothorax. Reading Location: [facility] Physical Exam Const Constitutional Narrative: Intubated, sedated and mechanically ventilated. No ventilator dyssynchrony noted. General Appearance: ill appearing and patient mechanically ventilated HEENT normocephalic and head/scalp atraumatic Mouth: endotracheal tube in place and OG tube in place Eyes PERRL, EOMs intact bilaterally and conjunctivae normal Neck supple General: trachea midline and CVC in place Chest inspection of chest normal Resp Resp Narrative: Right-sided small bore chest tube in place with airleak noted in the Pleur-evac. Auscultation: diminished lung sounds; Negative for rales, rhonchi or wheezes Cardio regular rate and regular rhythm GI normal to inspection, nondistended, normoactive bowel sounds Extremity no clubbing, cyanosis or edema Skin no rashes or lesions noted Neuro Sensorium / Orientation: sedated on vent Charges/Coding Procedures Hospitalists Procedures: 19133 Critical Care 1st Hr
--- NOTE | 2025-07-09 05:54 | RAD_ITS ---
PROCEDURE: CHEST 1 VIEW (PORTABLE) 07/09/2025 REASON FOR EXAM: ARDS-INCREASING FIO2 TECHNIQUE: Frontal view of the chest. COMPARISON: July 08, 2025 FINDINGS: Hardware: Right internal jugular line has its tip over the superior vena cava. Endotracheal tube is in satisfactory position above the helga. Nasogastric tube is in place. EKG leads are seen. Heart: The heart is enlarged. Lungs: Mixed interstitial and airspace opacities are shown bilaterally and diffusely. This is similar to prior exam. However, there has been interval development of a right-sided pneumothorax that is approximately 30%. Bones: The bones are unremarkable. RAD/Chest 1 View (Portable) IMPRESSION: 1. No change in the mixed, diffuse interstitial and airspace opacities. 2. Interval development of a right-sided pneumothorax. Red Alert: Pneumothorax The critical findings in the findings and impression above were relayed directl y by me by telephone to the nursing pilot plant supervisor, Ayana Bailey on 07/09/2025 at 6:13 am EST with readback verification. Reading Location: [id number]
[2025-07-09] MEDS: Propofol 10MG/Ml 1,000 MG/100 ML Bottle 1.8 MG CONT INF (06:14)
--- NOTE | 2025-07-09 06:53 | RAD_ITS ---
PROCEDURE: CHEST 1 VIEW (PORTABLE) 07/09/2025 REASON FOR EXAM: PTX TECHNIQUE: Frontal view of the chest. COMPARISON: Earlier the same day FINDINGS: Hardware: Right internal jugular line, endotracheal tube and nasogastric tube are unchanged. Interval placement of a right-sided small caliber chest tube. Heart: The heart is enlarged. Lungs: There continues to be mixed interstitial and airspace opacities diffusely and bilaterally. The pneumothorax on the right side is improving. The visceral pleura is proximally 15 mm from the apex while on prior it was 49 mm. Currently 12%. Bones: The bones are unremarkable. RAD/Chest 1 View (Portable) IMPRESSION: Right-sided chest tube. Interval improvement of the pneumothorax. Pneumothora x is not resolved. Reading Location: [id number]
--- NOTE | 2025-07-09 07:06 | PN.HOSP_ITS ---
Reason for Visit Chief Complaint: Dyspnea, orthopnea. Subjective Subjective Chest x-ray obtained this a.m. did show Interval development of a right-sided pneumothorax. Chest tube was subsequently placed by Dr. Browning with intensive care Objective Data Objective Data Vital Signs: Vital Signs Temp Pulse Resp BP Pulse Ox O2 Del Method O2 Flow Rate 97.1 F L 62 17 131/75 H 97 Mechanical Ventilator 100 07/08/25 22:00 07/09/25 06:56 07/09/25 06:56 07/08/25 23:00 07/09/25 06:56 07/09/25 04:00 07/07/25 04:00 FiO2 85 07/09/25 04:26 Oxygen Flow Rate (L/min) 100 Oxygen Delivery Method Mechanical Ventilator Weight: 60.1 kg Body Mass Index (BMI) 20.7 Intake & Output: Intake and Output for Last 24 Hours 07/07/25 07/08/25 07/09/25 23:59 23:59 23:59 Intake Total 1459.92 / 1491.32 1925.61 / 1960.36 204.56 / 204.56 Output Total 675 / 675 1330 / 1380 300 / 300 Balance 784.92 / 816.32 595.61 / 580.36 -95.44 / -95.44 Lab / Micro Data 07/09/25 03:25 07/09/25 03:25 Labs: Laboratory Results - last 24 hr 07/07/25 08:45: Cycl Citrul Peptide IgG 10, TARA Screen Negative, c-ANCA Antibody <1:20, Atypical p-ANCA <1:20, p-ANCA Antibody <1:20, SS-A/Ro IgG Antibody TNP, SS-B/La IgG Antibody TNP, Double Strand DNA Ab TNP, Mycoplasma pneumon IgG < 100, Mycoplasma pneumon IgM < 770 07/07/25 11:01: Fl Pathologist Comment Reviewed 07/09/25 03:25: WBC 17.9 H, RBC 3.54 L, Hgb 10.9 L, Hct 33.8 L, MCV 95.5, MCH 30.8, MCHC 32.2, RDW Std Deviation 51.6 H, RDW Coeff of Hilda 14.7 H, Plt Count 303, MPV 10.1, Immature Gran % (Auto) 0.800, Neut % (Auto) 92.1 H, Lymph % (Auto) 4.0 L, [place] % (Auto) 3.0, Eos % (Auto) 0.0, Baso % (Auto) 0.1, Absolute Neuts (auto) 16.4 H, Absolute Lymphs (auto) 0.72 L, Nucleated RBC % 0, Sodium 142, Potassium 3.5, Chloride 109 H, Carbon Dioxide 26.3, Anion Gap 8, BUN 29 H, Creatinine 0.52 L, Estim Creat Clear Calc 52.51, Est GFR (MDRD) Non-Af 94, B UN/Creatinine Ratio 56.3 H, Glucose 161 H, Calcium 8.0 Micro: Microbiology 07/07/25 11:01 Bronchial Lavage - Bronchial Gram Stain - Final 07/07/25 11:01 Bronchial Lavage - Bronchial Respiratory Culture - Preliminary Culture exhibits no growth. 07/06/25 11:55 Blood Culture (Wb) - Left Wrist Blood Culture - Preliminary No growth in 48 hours. 07/06/25 11:59 Blood Culture (Wb) - Right Hand Blood Culture - Preliminary No growth in 48 hours. 07/07/25 08:35 Sputum, Induced/Lukens Gram Stain - Final 07/06/25 15:12 Mucosa - Nasopharyngeal Respiratory Panel (PCR) - Final 07/06/25 16:10 Nasal Secretion MRSA (PCR) - Final 07/06/25 15:12 Mucosa - Nasopharyngeal Coronavirus COVID-19 PCR - Final 07/06/25 11:46 Urine Catheter - High Streptococcus pneumoniae Antigen (M - Final 07/06/25 11:46 Urine Catheter - High Legionella Antigen - Final Radiography Diagnostic Testing: Radiology Impression Chest X-Ray 07/09/25 05:54 IMPRESSION: 1. No change in the mixed, diffuse interstitial and airspace opacities. 2. Interval development of a right-sided pneumothorax. Red Alert: Pneumothorax The critical findings in the findings and impression above were relayed directly by me by telephone to the nursing stonemason supervisor, Ayana Bailey on 07/09/2025 at 6:13 am EST with readback verification. Reading Location: [facility] Physical Exam Narrative GENERAL: On the vent sedated HEENT: Atraumatic; normocephalic, ET tube EYES; Anicteric, Normal Conjunctiva NECK; supple, normal thyroid, RESPIRATORY: Diminished to auscultation, chest tube on the right side CARDIOVASCULAR: Regular S1 S2, GI: soft, normoactive bowel sounds, : No Renal angle tenderness; EXTREMITIES: No edema, no clubbing, MUSCULOSKELETAL: no muscle wasting NEURO: Unable to assess patient on the vent SKIN: No Rash PSYCH; unable to assess Assessment & Plan Assessment/Plan (1) Acute respiratory failure with hypoxia: PLAN: Plan Patient is an 80-year-old female who was admitted from the transitional care unit with hypoxia. An assessment of pneumonia with ARDS was made patient was admitted to the intensive care unit placed on noninvasive ventilation BiPAP 1. Acute hypoxic respiratory failure ? Secondary to pneumonia with ARDS admitted to the intensive care unit. Patient was placed on noninvasive ventilation BiPAP case was apparently discussed with patient regarding her CODE STATUS she is agreeable to brief trial of intubation. Consult placed to correctional agency director.. Patient clinical condition deteriorated resulting in patient being intubated. Case was discussed with Dr. Browning with intensive care ? 07/08/2025; patient underwent bronchoscopy the day prior findings as below Bilateral infiltrate, The airway examination of the left lung was normal. Scant, mucoid secretions were found in the right mainstem bronchus. Bronchoalveolar lavage was performed.. Patient WBC count remains elevated. Patient remains on the vent. Vent adjustment deferred to correctional agency director ? 07/09/2025; patient remains on the vent and as stated below patient did develop right-sided pneumothorax, subsequent imaging studies ordered 2. Pneumonia with suspected gram-negative organisms ? Patient presented with respiratory failure described above placed on broad- spectrum antibiotic therapy cultures sent ? 07/09/2025; patient remains on the vent cultures sent following patient bronchoscopy still pending 3. Septic shock ? Secondary to pneumonia patient had to be started on norepinephrine in addition to hydrocortisone. Remains on broad-spectrum antibiotic therapy with piperacillin/tazobactam as well as vancomycin ? 07/09/2025; patient on epinephrine on hold 4. Right-sided pneumothorax ?Chest x-ray obtained on 06/08/2025 did show Interval development of a right- sided pneumothorax. Chest tube was subsequently placed by Dr. Browning with intensive care 5. Paroxysmal A-fib ? Patient is on amiodarone as well as systemic anticoagulation with apixaban ? 07/09/2025; patient amiodarone has been discontinued 6. Anemia ? Secondary to chronic disorder monitoring H&H and transfuse if patient becomes symptomatic or hemoglobin falls below 7 ? 07/09/2025; patient hemoglobin level down to 10.9, was 13.1 on 07/01/2025. Will continue with monitoring with daily CBC with differential 7. Mild leukocytosis ? Secondary to patient underlying infection plan is to treat underlying clinical etiology 8. Essential hypertension ? Patient is on lisinopril held following patient intubated 9. DVT prophylaxis ? Patient is on apixaban Charges/Coding Visit Charges Inpatient E&M: 83542 Subs Hosp L3
--- NOTE | 2025-07-09 07:14 | PCM.OP.PRO2 ---
Procedures Hospitalists Procedures: 75135 Insertion of Chest Tube Bedside Procedural Bedside Procedure Information Date of Procedure: 07/09/25 Description of procedure: Chest Tube Procedure Note Date: July 09, 2025 Indication: Spontaneous pneumothorax Consent: Performed emergently Procedure summary: A timeout was performed and after the chest x-ray was reviewed, the appropriate side was confirmed and marked. Sterile procedure was implemented. The patient was prepped and draped in a sterile manner using chlorhexidine scrub after the patient was positioned in the usual fashion. 8 mL of 1% lidocaine was used to anesthetize the skin, subcutaneous tissue, superior aspect of the rib and parietal pleura. A small incision was made parallel to the rib in the mid axillary line. An 8 Citizen Of [place] 16 cm pneumothorax tube was then inserted through the incision and sutured into place. The chest tube was sutured to the skin at the insertion site and connected securely with tape to a Pleur-evac. A sterile occlusive dressing was placed over the insertion site. No immediate complications were noted. A postprocedure chest x-ray is pending.
[2025-07-09 07:19] LABS: Allen Test Positive; Base Excess 4 mmol/L (-2 to +2); FI02 80.0; PEEP 10; PO2 55 mmHG (75-100); RR 16; SITE R Radial; SO2 86 % (94-98)
[2025-07-09 07:32] LABS: CPK Total, Creatine Kinase 64 U/L (24-195); Triglycerides 147 mg/dL
[2025-07-09] MEDS: 0.9% Saline Lock 10 ML Syringe IV ×3 (07:32→21:26)
[2025-07-09] MEDS: Piperacil/Tazobactam 3.375 GM in 0.9% Normal Saline (50mL MB+) 50 ML IV ×3 (07:47→21:26)
--- NOTE | 2025-07-09 07:50 | NURSING ---
Around 0430 patient desating when nurse entered room with FIO2 90%, called RT and noticed her breaths were stacked with vent. RT assisting patient while MD notified. MD at bedside adjusted vent settings then gave various orders then gave different sedation orders. Chest xray taken. Dr. Browning entered room around 0600 and placed chest tube.
[2025-07-09] MEDS: CHLORHEXIDINE GLUC 2% CLOTH 1 EACH TOWELETTE TOPICAL (08:51)
[2025-07-09] MEDS: Chlorhexidine 15 ML PO ×2 (08:51→20:33)
[2025-07-09] MEDS: Pantoprazole Sodium 40 MG in 0.9% Normal Saline (100mL MB+) 100 ML 300 MG IV (08:51)
[2025-07-09] MEDS: fentaNYL drip 100 ML 15 MCG CONT INF ×3 (09:15→22:51)
[2025-07-09] MEDS: dexMEDEtomidine 1,000 MCG in 0.9% Normal Saline (250mL Bag) 240 ML 22.5 MCG CONT INF ×2 (09:19→20:30)
[2025-07-09] MEDS: Acetaminophen 650 MG/20 ML UDC GT (14:05)
[2025-07-09] MEDS: 0.9% Normal Saline (250mL Bag) 250 ML 15 ML IV (16:27)
[2025-07-09] MEDS: Propofol 10MG/Ml 1,000 MG/100 ML Bottle 3.6 MG CONT INF (20:10)
[2025-07-09] MEDS: Polyethylene Glycol 3350 17 GM PACKET GT (21:26)
[2025-07-09] MEDS: Senna/Docusate Sodium 1 Tablet 2 TABLET GT (21:26)
[2025-07-10] VITALS (37 sets, daily range): BP systolic 84–159; BP diastolic 49–99; PULSE 46–142; RESP 16–22; TEMP 35.8–37.8; O2SAT 82–99
[2025-07-10 03:41] LABS: Hematocrit 33.4 % (37-47); Hemoglobin 10.6 g/dL (12.0-15.0); Immature Granulocytes Count 0.100 X10^3/uL (0.0-0.0); Mean Corp Hgb Conc 31.7 g/dL (32-36); Mean Corpuscular Volume 95.2 fL (81-99); Mean Platelet Vol. 9.9 fl (6.2-12.0); NRBC Flagged by Analyzer 0 % (0-5); Platelet Count 252 K/mm3 (150-450); RBC Distribution Width CV 14.6 % (11.6-14.6); RBC Distribution Width SD 50.9 fl (35.1-43.9); Red Blood Count 3.51 M/mm3 (4.2-5.4); White Blood Count 11.4 K/mm3 (4.4-11.0)
--- NOTE | 2025-07-10 04:10 | RAD_ITS ---
PROCEDURE: CHEST 1 VIEW (PORTABLE) 07/10/2025 REASON FOR EXAM: RESPIRATORY FAILURE TECHNIQUE: Frontal view of the chest. COMPARISON: 07/09/2025 RAD/Chest 1 View (Portable) IMPRESSION: Interval slight improvement of right pneumothorax now measuring approximately 1 .2 cm in depth, previously 1.5 cm. Otherwise, grossly unchanged lung findings. Reading Location: [id number]
[2025-07-10 04:43] LABS: Vancomycin, Trough Level 14.9 ug/mL (5.0-15.0)
[2025-07-10 04:45] LABS: Anion Gap 7 (5-15); BUN 31 mg/dL (4-19); BUN/Creat Ratio 60.8 RATIO (10-20); Calcium,Total 8.0 mg/dL (7.6-11.0); Carbon Dioxide 29.1 mmol/L (21.0-32.0); Chloride 109 mmol/L (98-108); Estimated Creatinine Clearance 52.51 ml/min (50-250); Glucose 197 mg/dL (70-99); Potassium 3.1 mmol/L (3.3-5.1)
--- NOTE | 2025-07-10 04:53 | PCM.RX.CS ---
Consult Antibiotic Management Pharmacy has been consulted to manage selected antibiotic: Vancomycin Type of Intervention Type of Consult: Follow-up Labs Labs: Sodium 145 mmol/L (133-145) 07/10/25 03:32 Potassium 3.1 mmol/L (3.3-5.1) L 07/10/25 03:32 Chloride 109 mmol/L (98-108) H 07/10/25 03:32 Carbon Dioxide 29.1 mmol/L (21.0-32.0) 07/10/25 03:32 Anion Gap 7 (5-15) 07/10/25 03:32 BUN 31 mg/dL (4-19) H 07/10/25 03:32 Creatinine 0.51 mg/dL (0.70-1.20) L 07/10/25 03:32 Est GFR (MDRD) Non-Af 94 (>60) 07/10/25 03:32 BUN/Creatinine Ratio 60.8 RATIO (10-20) H 07/10/25 03:32 Glucose 197 mg/dL (70-99) H 07/10/25 03:32 Vancomycin Trough 14.9 ug/mL (5.0-15.0) 07/10/25 03:32 Microbiology Microbiology: Microbiology 07/07/25 08:35 Sputum, Induced/Lukens Gram Stain - Final 07/07/25 08:35 Sputum, Induced/Lukens Respiratory Culture - Final Culture exhibits no growth. 07/07/25 11:01 Bronchial Lavage - Bronchial Gram Stain - Final 07/07/25 11:01 Bronchial Lavage - Bronchial Respiratory Culture - Final Culture exhibits no growth. 07/06/25 11:55 Blood Culture (Wb) - Left Wrist Blood Culture - Preliminary No growth in 48 hours. 07/06/25 11:59 Blood Culture (Wb) - Right Hand Blood Culture - Preliminary No growth in 48 hours. 07/06/25 15:12 Mucosa - Nasopharyngeal Respiratory Panel (PCR) - Final 07/06/25 16:10 Nasal Secretion MRSA (PCR) - Final 07/06/25 15:12 Mucosa - Nasopharyngeal Coronavirus COVID-19 PCR - Final 07/06/25 11:46 Urine Catheter - High Streptococcus pneumoniae Antigen (M - Final 07/06/25 11:46 Urine Catheter - High Legionella Antigen - Final Goal Trough Goal Trough: 15-20 mcg/mL Pharmacy Plan for Drug Dosing Pharmacy Plan for Drug Dosing: Pharmacy Service will continue to monitor and adjust dosing as required. TROUGH 14.9 @ 11 HOURS. NO CHANGES, FOLLOW UP TROUGH IN 2 DAYS Follow-Up Labs Follow-Up Labs: Trough: Vancomycin Date/Time Labs Ordered Labs to be done on [date and time ordered]: 07/12 @ 0336
[2025-07-10] MEDS: Vancomycin HCl 1,000 MG in 0.9% Normal Saline (250mL Bag) 250 ML 250 MG IV ×2 (04:54→16:39)
[2025-07-10] MEDS: 0.9% Saline Lock 10 ML Syringe IV ×2 (04:59→23:58)
[2025-07-10] MEDS: Piperacil/Tazobactam 3.375 GM in 0.9% Normal Saline (50mL MB+) 50 ML IV ×3 (05:00→21:13)
--- NOTE | 2025-07-10 05:36 | PN.CC_ITS ---
Assessment & Plan Assessment/Plan (1) Acute respiratory failure with hypoxia: (2) ARDS (adult respiratory distress syndrome): PLAN: Plan RECOMMENDATIONS: 1. Continue to wean FiO2 and PEEP to maintain saturations at or above 90%. 2. Goal to maintain plateau pressures less than 30 and driving pressure less than 15, if feasible. 3. Continue empiric antimicrobials and corticosteroids. 4. Continue chest tube to wall suction. 5. Obtain follow-up ABG and chest x-ray in the morning. 6. Continue propofol and fentanyl for sedation. Recommend discontinuation of Precedex given bradycardia. 7. Continue tube feeding for nutritional support. 8. Continue appropriate ICU prophylaxis. 9. Tentative plans for goals of care discussion with the patient's family. IMPRESSIONS: 1. Acute hypoxemic respiratory failure/ARDS The patient was just admitted to the hospital and treated for severe community- acquired pneumonia with antimicrobials and corticosteroids. She was ultimately discharged to the transitional care unit on July 02 and was readmitted on July 07 with worsening shortness of breath. Her chest imaging continues to show diffuse bilateral infiltrates, not fully explained by a cardiac etiology, with a PF ratio less than 100, consistent with ARDS. While an underlying infectious process is still a possibility, other potential etiologies include diffuse alveolar hemorrhage, AIP, eosinophilic pneumonia and possibly cryptogenic organizing pneumonia. Autoimmune serologies were checked and found to be negative. Bronchoscopy was performed on July 07, with cultures unrevealing to date. COVID, influenza and RSV PCR's were negative. Eosinophilia was not noted on the cell count from the BAL. It is certainly plausible given the patient's trajectory and onset of symptoms that she has underlying AIP. However, she is too clinically unstable to perform any type of lung biopsy. The patient will be continued on empiric broad-spectrum antimicrobials, despite negative infectious workup to date, along with corticosteroids. Recommend continuation of propofol and fentanyl for sedation. Appropriate ICU prophylaxis will be continued. Tube feeding will be continued for nutritional support. Ultimately, plan to engage in a goals of care discussion with the patient's family. 2. Spontaneous pneumothorax The patient developed a spontaneous pneumothorax on July 09, which required chest tube placement. Recommend continuing chest tube to wall suction. Attempt to minimize PEEP as tolerated. Obtain follow-up chest x-ray in the morning. 3. History of paroxysmal atrial fibrillation/anxiety/hypertension Complicates care, management, recovery and prognosis. Continue supportive measures as noted above. CODE STATUS: DNR CCA with intubation. CODE STATUS was discussed with the patient along with plan for care prior to intubation. The patient did indicate that she would not want to proceed with tracheostomy if she was unable to be weaned from invasive mechanical ventilatory support. TIME: 35 minutes of critical care time, independent of procedures, was spent addressing the patient's acute hypoxemic respiratory failure/ARDS, spontaneous pneumothorax, review of all data and collaboration with the care team. Subjective Subjective The patient was seen and examined at the bedside this morning. Events from the last 24 hours have been reviewed. The patient is currently afebrile, hemodynamically stable and maintaining appropriate oxygen saturations on PRVC with an FiO2 of 45% and PEEP of 8. The patient continues to have a persistent air leak from her chest tube with residual pneumothorax noted on chest imaging. White blood cell count has improved to 11,000 with a hemoglobin of 10.6 g/dL and platelet count of 252,000. Arterial blood gas was notable for a pH of 7.37 with a pCO2 of 53 and pO2 of 52. Chemistry profile was notable for a potassium of 3.1. The patient has been tolerant of tube feeding. Objective Data Objective Data The patient's most recent lab work, culture data and imaging studies have all been personally reviewed. Surface echocardiogram revealed normal LV size and function with an ejection fraction of 65%. Respiratory viral panel was negative. COVID PCR was negative. Bronchial washing cultures are pending. Vital Signs: Vital Signs Temp Pulse Resp BP Pulse Ox O2 Del Method O2 Flow Rate 98.3 F 52 L 16 146/71 H 92 Mechanical Ventilator 100 07/10/25 05:00 07/10/25 05:00 07/10/25 05:00 07/10/25 05:00 07/10/25 05:00 07/10/25 05:00 07/07/25 04:00 FiO2 45 07/10/25 05:00 Oxygen Flow Rate (L/min) 100 Oxygen Delivery Method Mechanical Ventilator Weight: 132 lb 7.965 oz Body Mass Index (BMI) 27.9 Intake & Output: Intake and Output for Last 24 Hours 07/08/25 07/09/25 07/10/25 23:59 23:59 23:59 Intake Total 1925.61 / 1960.36 3038.71 / 3076.66 373.64 / 373.64 Output Total 1330 / 1380 3015 / 3015 200 / 200 Balance 595.61 / 580.36 23.71 / 61.66 173.64 / 173.64 Lab / Micro Data Attestation: I reviewed the patient's lab results. 07/10/25 03:32 07/10/25 03:32 Labs: Laboratory Results - last 24 hr 07/09/25 03:25: Total Creatine Kinase 64, Triglycerides 147 07/10/25 03:32: WBC 11.4 H, RBC 3.51 L, Hgb 10.6 L, Hct 33.4 L, MCV 95.2, MCH 30.2, MCHC 31.7 L, RDW Std Deviation 50.9 H, RDW Coeff of Hilda 14.6, Plt Count 252, MPV 9.9, Immature Gran % (Auto) 0.900, Neut % (Auto) 91.1 H, Lymph % (Auto) 6.0 L, [place] % (Auto) 1.9, Eos % (Auto) 0.0, Baso % (Auto) 0.1, Absolute Neuts (auto) 10.4 H, Absolute Lymphs (auto) 0.68 L, Nucleated RBC % 0, Sodium 145, P otassium 3.1 L, Chloride 109 H, Carbon Dioxide 29.1, Anion Gap 7, BUN 31 H, C reatinine 0.51 L, Estim Creat Clear Calc 52.51, Est GFR (MDRD) Non-Af 94, B UN/Creatinine Ratio 60.8 H, Glucose 197 H, Calcium 8.0, Vancomycin Trough 14.9 Micro: Microbiology 07/07/25 08:35 Sputum, Induced/Lukens Gram Stain - Final 07/07/25 08:35 Sputum, Induced/Lukens Respiratory Culture - Final Culture exhibits no growth. 07/07/25 11:01 Bronchial Lavage - Bronchial Gram Stain - Final 07/07/25 11:01 Bronchial Lavage - Bronchial Respiratory Culture - Final Culture exhibits no growth. 07/06/25 11:55 Blood Culture (Wb) - Left Wrist Blood Culture - Preliminary No growth in 48 hours. 07/06/25 11:59 Blood Culture (Wb) - Right Hand Blood Culture - Preliminary No growth in 48 hours. 07/06/25 15:12 Mucosa - Nasopharyngeal Respiratory Panel (PCR) - Final 07/06/25 16:10 Nasal Secretion MRSA (PCR) - Final 07/06/25 15:12 Mucosa - Nasopharyngeal Coronavirus COVID-19 PCR - Final 07/06/25 11:46 Urine Catheter - High Streptococcus pneumoniae Antigen (M - Final 07/06/25 11:46 Urine Catheter - High Legionella Antigen - Final ABG Data ABG results: ABG 07/09/25 07:16 Specimen Type ART Sample Site R Radial pH 7.35 Bicarbonate Actual 29.4 H Total CO2 31 Base Excess 4 H O2 Saturation 86 L O2 % 80.0 ABG pCO2 52.8 H ABG pO2 55 L Herve Test Positive Respiration Rate 16 O2 Delivery Device Adult Vent Vent Mode AC Tidal Volume 400.0 POC PEEP 10 Radiography Diagnostic Testing: Radiology Impression Chest X-Ray 07/09/25 05:54 IMPRESSION: 1. No change in the mixed, diffuse interstitial and airspace opacities. 2. Interval development of a right-sided pneumothorax. Red Alert: Pneumothorax The critical findings in the findings and impression above were relayed directly by me by telephone to the nursing supervisor beehive kiln, Ayana Bailey on 07/09/2025 at 6:13 am EST with readback verification. Reading Location: [facility] Chest X-Ray 07/09/25 06:53 IMPRESSION: Right-sided chest tube. Interval improvement of the pneumothorax. Pneumothorax is not resolved. Reading Location: [facility] Physical Exam Const Constitutional Narrative: Intubated, sedated and mechanically ventilated. No ventilator dyssynchrony noted. General Appearance: ill appearing and patient mechanically ventilated HEENT normocephalic and head/scalp atraumatic Mouth: endotracheal tube in place and OG tube in place Eyes PERRL, EOMs intact bilaterally and conjunctivae normal Neck supple General: trachea midline and CVC in place Chest inspection of chest normal Resp Resp Narrative: Right-sided small bore chest tube in place with airleak noted in the Pleur-evac. Auscultation: diminished lung sounds; Negative for rales, rhonchi or wheezes Cardio S1 normal heart sound and S2 normal heart sound Rate: bradycardia GI normal to inspection, nondistended, normoactive bowel sounds Extremity no clubbing, cyanosis or edema Skin no rashes or lesions noted Neuro Sensorium / Orientation: sedated on vent Charges/Coding Procedures Hospitalists Procedures: [id number] Critical Care 1st Hr
[2025-07-10 05:44] LABS: Allen Test Positive; Base Excess 5 mmol/L (-2 to +2); FI02 45.0; PEEP 8; PO2 52 mmHG (75-100); RR 16; SITE R Radial; SO2 85 % (94-98)
[2025-07-10] MEDS: fentaNYL drip 100 ML 15 MCG CONT INF ×3 (05:50→16:32)
--- NOTE | 2025-07-10 07:17 | PCM.PN.HOSP ---
Reason for Visit Chief Complaint: Dyspnea, orthopnea. Subjective Subjective Patient remains on the vent chest x-ray this morning did show interval slight improvement of right pneumothorax now measuring approximately 1.2 cm in depth, previously 1.5 cm. Otherwise, grossly unchanged lung findings.. Diagnostic data reviewed significant for potassium of 3.1 Objective Data Objective Data Vital Signs: Vital Signs Temp Pulse Resp BP Pulse Ox O2 Del Method O2 Flow Rate 97.9 F 48 L 16 150/78 H 92 Mechanical Ventilator 100 07/10/25 06:00 07/10/25 07:00 07/10/25 07:00 07/10/25 06:00 07/10/25 07:00 07/10/25 06:00 07/07/25 04:00 FiO2 45 07/10/25 06:00 Oxygen Flow Rate (L/min) 100 Oxygen Delivery Method Mechanical Ventilator Weight: 60.1 kg Body Mass Index (BMI) 27.9 Intake & Output: Intake and Output for Last 24 Hours 07/08/25 07/09/25 07/10/25 23:59 23:59 23:59 Intake Total 1925.61 / 1960.36 3038.71 / 3076.66 681.12 / 681.12 Output Total 1330 / 1380 3015 / 3015 200 / 200 Balance 595.61 / 580.36 23.71 / 61.66 481.12 / 481.12 Lab / Micro Data 07/10/25 03:32 07/10/25 03:32 Labs: Laboratory Results - last 24 hr 07/09/25 03:25: Total Creatine Kinase 64, Triglycerides 147 07/10/25 03:32: WBC 11.4 H, RBC 3.51 L, Hgb 10.6 L, Hct 33.4 L, MCV 95.2, MCH 30.2, MCHC 31.7 L, RDW Std Deviation 50.9 H, RDW Coeff of Hilda 14.6, Plt Count 252, MPV 9.9, Immature Gran % (Auto) 0.900, Neut % (Auto) 91.1 H, Lymph % (Auto) 6.0 L, [place] % (Auto) 1.9, Eos % (Auto) 0.0, Baso % (Auto) 0.1, Absolute Neuts (auto) 10.4 H, Absolute Lymphs (auto) 0.68 L, Nucleated RBC % 0, Sodium 145, Potassium 3.1 L, Chloride 109 H, Carbon Dioxide 29.1, Anion Gap 7, BUN 31 H, Creatinine 0.51 L, Estim Creat Clear Calc 52.51, Est GFR (MDRD) Non-Af 94, BUN/Creatinine Ratio 60.8 H, Glucose 197 H, Calcium 8.0, Vancomycin Trough 14.9 Micro: Microbiology 07/07/25 08:35 Sputum, Induced/Lukens Gram Stain - Final 07/07/25 08:35 Sputum, Induced/Lukens Respiratory Culture - Final Culture exhibits no growth. 07/07/25 11:01 Bronchial Lavage - Bronchial Gram Stain - Final 07/07/25 11:01 Bronchial Lavage - Bronchial Respiratory Culture - Final Culture exhibits no growth. 07/06/25 11:55 Blood Culture (Wb) - Left Wrist Blood Culture - Preliminary No growth in 48 hours. 07/06/25 11:59 Blood Culture (Wb) - Right Hand Blood Culture - Preliminary No growth in 48 hours. 07/06/25 15:12 Mucosa - Nasopharyngeal Respiratory Panel (PCR) - Final 07/06/25 16:10 Nasal Secretion MRSA (PCR) - Final 07/06/25 15:12 Mucosa - Nasopharyngeal Coronavirus COVID-19 PCR - Final 07/06/25 11:46 Urine Catheter - High Streptococcus pneumoniae Antigen (M - Final 07/06/25 11:46 Urine Catheter - High Legionella Antigen - Final ABG Data ABG results: ABG 07/09/25 07/10/25 07:16 05:40 Specimen Type ART ART Sample Site R Radial R Radial pH 7.35 7.37 Bicarbonate Actual 29.4 H 30.5 H Total CO2 31 32 Base Excess 4 H 5 H O2 Saturation 86 L 85 L O2 % 80.0 45.0 ABG pCO2 52.8 H 53.3 H ABG pO2 55 L 52 L Herve Test Positive Positive Respiration Rate 16 16 O2 Delivery Device Adult Vent ET Tube Vent Mode AC AC Tidal Volume 400.0 400.0 POC PEEP 10 8 Radiography Diagnostic Testing: Radiology Impression Chest X-Ray 07/09/25 06:53 IMPRESSION: Right-sided chest tube. Interval improvement of the pneumothorax. Pneumothorax is not resolved. Reading Location: [id number] Chest X-Ray 07/10/25 04:10 IMPRESSION: Interval slight improvement of right pneumothorax now measuring approximately 1.2 cm in depth, previously 1.5 cm. Otherwise, grossly unchanged lung findings. Reading Location: [facility] Physical Exam Narrative GENERAL: On the vent sedated HEENT: Atraumatic; normocephalic, ET tube EYES; Anicteric, Normal Conjunctiva NECK; supple, normal thyroid, RESPIRATORY: Diminished to auscultation, chest tube on the right side CARDIOVASCULAR: Regular S1 S2, GI: soft, normoactive bowel sounds, : No Renal angle tenderness; EXTREMITIES: No edema, no clubbing, MUSCULOSKELETAL: no muscle wasting NEURO: Unable to assess patient on the vent SKIN: No Rash PSYCH; unable to assess Assessment & Plan Assessment/Plan (1) Acute respiratory failure with hypoxia: PLAN: Plan Patient is an 80-year-old female who was admitted from the transitional care unit with hypoxia. An assessment of pneumonia with ARDS was made patient was admitted to the intensive care unit placed on noninvasive ventilation BiPAP 1. Acute hypoxic respiratory failure ? Secondary to pneumonia with ARDS admitted to the intensive care unit. Patient was placed on noninvasive ventilation BiPAP case was apparently discussed with patient regarding her CODE STATUS she is agreeable to brief trial of intubation. Consult placed to clipper machine operator.. Patient clinical condition deteriorated resulting in patient being intubated. Case was discussed with Dr. Browning with intensive care ? 07/08/2025; patient underwent bronchoscopy the day prior findings as below Bilateral infiltrate, The airway examination of the left lung was normal. Scant, mucoid secretions were found in the right mainstem bronchus. Bronchoalveolar lavage was performed.. Patient WBC count remains elevated. Patient remains on the vent. Vent adjustment deferred to clipper machine operator ? 07/09/2025; patient remains on the vent and as stated below patient did develop right-sided pneumothorax, subsequent imaging studies ordered ? 07/10/2025; Patient remains on the vent chest x-ray this morning did show interval slight improvement of right pneumothorax now measuring approximately 1.2 cm in depth, previously 1.5 cm. Otherwise, grossly unchanged lung findings. 2. Pneumonia with suspected gram-negative organisms ? Patient presented with respiratory failure described above placed on broad-spectrum antibiotic therapy cultures sent ? 07/09/2025; patient remains on the vent cultures sent following patient bronchoscopy still pending 3. Septic shock ? Secondary to pneumonia patient had to be started on norepinephrine in addition to hydrocortisone. Remains on broad-spectrum antibiotic therapy with piperacillin/tazobactam as well as vancomycin ? 07/09/2025; patient on epinephrine on hold 4. Right-sided pneumothorax ?Chest x-ray obtained on 06/08/2025 did show Interval development of a right-sided pneumothorax. Chest tube was subsequently placed by Dr. Browning with intensive care ? 07/10/2025; Patient remains on the vent chest x-ray this morning did show interval slight improvement of right pneumothorax now measuring approximately 1.2 cm in depth, previously 1.5 cm. Otherwise, grossly unchanged lung findings.. Patient apparently has an air leak plan is to manage conservatively 5. Paroxysmal A-fib ? Patient is on amiodarone as well as systemic anticoagulation with apixaban ? 07/09/2025; patient amiodarone has been discontinued 6. Anemia ? Secondary to chronic disorder monitoring H&H and transfuse if patient becomes symptomatic or hemoglobin falls below 7 ? 07/09/2025; patient hemoglobin level down to 10.9, was 13.1 on 07/01/2025. Will continue with monitoring with daily CBC with differential 7. Mild leukocytosis ? Secondary to patient underlying infection plan is to treat underlying clinical etiology 8. Essential hypertension ? Patient is on lisinopril held following patient intubated 9. Hypokalemia -Corrected per protocol, repeat potassium level ordered in a.m. 10. DVT prophylaxis ? Patient is on apixaban Charges/Coding Visit Charges Inpatient E&M: 17397 [facility] Hosp L3
[2025-07-10] MEDS: Potassium Chloride 10mEq/100mL 10 MEQ/100 ML IV.SOLN. 100 MEQ IV BOLUS ×4 (07:41→10:48)
[2025-07-10] MEDS: Pantoprazole Sodium 40 MG in 0.9% Normal Saline (100mL MB+) 100 ML 300 MG IV (09:28)
[2025-07-10] MEDS: Senna/Docusate Sodium 1 Tablet 2 TABLET GT ×2 (09:45→21:04)
[2025-07-10] MEDS: CHLORHEXIDINE GLUC 2% CLOTH 1 EACH TOWELETTE TOPICAL (09:45)
[2025-07-10] MEDS: Chlorhexidine 15 ML PO ×2 (09:45→21:09)
[2025-07-10] MEDS: Vital AF 1.2 Cal Liquid 1,000 ML 55 ML GT (10:16)
[2025-07-10] MEDS: Propofol 10MG/Ml 1,000 MG/100 ML Bottle 5.4 MG CONT INF ×2 (10:25→21:19)
--- NOTE | 2025-07-10 15:41 | CASEMGMT ---
Addendum entered by Cherie Gleason 07/10/25 16:08: RADHA coordinated with tank bottom assembler who reports a time during rounds is most convenient for him. SW called pt son who was agreeable to being available by phone Sunday 8:30-9:30. RADHA updated tank bottom assembler. NEHAL Escobar Original Note: Social Work- SW called pt son and verified that son provided HCPOA paperwork; son reports he delivered paperwork last night. SW attempted to schedule a meeting with hospitalist for goals of care. Hospitalist unavailable weekends; uncertain of other availability. Pt son available 5pm or later this evening. Pt son indicated he believes pt's lungs needs time to heal- maybe a week or two, reports understanding that he can speak with nurses for any questions during visits. RADHA remains available to follow. NEHAL Escobar
--- NOTE | 2025-07-10 20:10 | RAD_ITS ---
PROCEDURE: CHEST 1 VIEW (PORTABLE) 07/10/2025 REASON FOR EXAM: HYPOXIA TECHNIQUE: Frontal view of the chest. COMPARISON: Earlier same day 07/10/2025 FINDINGS: Endotracheal tube tip projects approximately 3.7 cm above the helga. Enteric tube terminates appropriately in the left upper abdomen within the stomach. Right IJ central venous catheter with tip at the superior cavoatrial junction. Apically oriented right thoracostomy tube in stable positioning lateral right mid lung zone. Slightly enlarged small-moderate right apical pneumothorax since prior exam. Otherwise unchanged lung aeration with diffuse bilateral hazy airspace opacities. No large pleural effusion. Enlarged cardiac silhouette, stable. No significant mediastinal shift. Redemonstrated right posterolateral rib fracture deformities. Fracture deformity of the right humeral head/neck. Mild degenerative changes of the spine. Qualitative osteopenia. RAD/Chest 1 View (Portable) IMPRESSION: 1. Support lines/tubes in stable positioning, as above. 2. Slight increased size of the small-moderate right pneumothorax since prior e xam. 3. Unchanged diffuse bilateral hazy airspace opacities which may be infectious/ inflammatory and/or related to pulmonary edema. No sizable pleural effusion. Stable cardiomegaly. Reading Location: [id number]
[2025-07-10] MEDS: Amiodarone 150 MG in Dextrose 5%-Water (100mL Bag) 100 ML 600 MG IV BOLUS (20:51)
[2025-07-10] MEDS: Amiodarone 360 MG in Dextrose 5% Viaflo Bag 192.8 ML 33.3 MG CONT INF (21:04)
[2025-07-10] MEDS: fentaNYL drip 100 ML 17.5 MCG CONT INF (22:50)
[2025-07-10] MEDS: Norepinephrine 8 MG in 0.9% Normal Saline (250mL Bag) 242 ML 9.4 MG CONT INF (23:58)
[2025-07-11] VITALS (38 sets, daily range): BP systolic 75–128; BP diastolic 46–99; PULSE 68–112; RESP 14–31; TEMP 37–37.9; O2SAT 90–98; BMI 21.8
[2025-07-11] MEDS: CHLORHEXIDINE GLUC 2% CLOTH 1 EACH TOWELETTE TOPICAL (03:12)
[2025-07-11] MEDS: Vancomycin HCl 1,000 MG in 0.9% Normal Saline (250mL Bag) 250 ML 250 MG IV ×2 (03:12→16:07)
[2025-07-11] MEDS: Amiodarone 360 MG in Dextrose 5% Viaflo Bag 192.8 ML 16.7 MG CONT INF ×2 (03:12→14:30)
[2025-07-11] MEDS: 0.9% Saline Lock 10 ML Syringe IV ×2 (03:13→09:50)
[2025-07-11 03:26] LABS: Hematocrit 33.5 % (37-47); Hemoglobin 10.5 g/dL (12.0-15.0); Immature Granulocytes Count 0.160 X10^3/uL (0.0-0.0); Mean Corp Hgb Conc 31.3 g/dL (32-36); Mean Corpuscular Volume 96.5 fL (81-99); Mean Platelet Vol. 10.0 fl (6.2-12.0); NRBC Flagged by Analyzer 0 % (0-5); Platelet Count 372 K/mm3 (150-450); RBC Distribution Width CV 15.0 % (11.6-14.6); RBC Distribution Width SD 52.9 fl (35.1-43.9); Red Blood Count 3.47 M/mm3 (4.2-5.4); White Blood Count 21.0 K/mm3 (4.4-11.0)
[2025-07-11 03:55] LABS: Anion Gap 7 (5-15); BUN 41 mg/dL (4-19); BUN/Creat Ratio 64.6 RATIO (10-20); Calcium,Total 7.8 mg/dL (7.6-11.0); Carbon Dioxide 27.5 mmol/L (21.0-32.0); Chloride 110 mmol/L (98-108); Estimated Creatinine Clearance 52.51 ml/min (50-250); Glucose 219 mg/dL (70-99); Potassium 3.7 mmol/L (3.3-5.1)
--- NOTE | 2025-07-11 04:15 | RAD_ITS ---
PROCEDURE: CHEST 1 VIEW (PORTABLE) 07/11/2025 REASON FOR EXAM: RESPIRATORY FAILURE TECHNIQUE: Frontal view of the chest. COMPARISON: 07/10/2025. FINDINGS: Endotracheal tube is in good position. Enteric feeding tube is in good position. Right internal jugular central catheter is in good position. Right thoracostomy pleural drainage catheter is in good position. Mild increase in moderate right pneumothorax. Unchanged passive atelectasis of the right lung. Unchanged multifocal airspace disease of the lungs which came secondary to pulmonary edema and/or pneumonia. Unchanged cardiomegaly. Normal mediastinum and toni. Normal visualized pulmonary arteries. Normal visualized aortic arch and descending thoracic aorta. Normal visualized thoracic spine. Normal visualized ribs, clavicles, and shoulders. There is no demonstrated abnormality of the visualized soft tissue structures of the upper abdomen. RAD/Chest 1 View (Portable) IMPRESSION: Endotracheal tube is in good position. Enteric feeding tube is in good position. Right internal jugular central catheter is in good position. Right thoracostomy pleural drainage catheter is in good position. Mild increase in moderate right pneumothorax. Unchanged passive atelectasis of the right lung. Unchanged multifocal airspace disease of the lungs which came secondary to pulm onary edema and/or pneumonia. Unchanged cardiomegaly. Reading Location: [id number]
[2025-07-11] MEDS: Propofol 10MG/Ml 1,000 MG/100 ML Bottle 14.4 MG CONT INF (04:16)
[2025-07-11] MEDS: fentaNYL drip 100 ML 17.5 MCG CONT INF ×4 (05:00→21:24)
[2025-07-11] MEDS: TITRATION PARAMETER CHANGE 1 EACH IV (05:04)
[2025-07-11] MEDS: Piperacil/Tazobactam 3.375 GM in 0.9% Normal Saline (50mL MB+) 50 ML IV ×3 (05:05→21:30)
[2025-07-11 05:18] LABS: Allen Test Positive; Base Excess 3 mmol/L (-2 to +2); FI02 70.0; PEEP 5; PO2 57 mmHG (75-100); RR 16; SITE L Radial; SO2 88 % (94-98)
--- NOTE | 2025-07-11 07:12 | PN.HOSP_ITS ---
Reason for Visit Chief Complaint: Dyspnea, orthopnea. Subjective Subjective Patient chest x-ray did demonstrate mild increase in the moderate right-sided hemothorax. Right thoracostomy pleural drainage catheter was reported to be in good position. There is unchanged multifocal airspace disease Objective Data Objective Data Vital Signs: Vital Signs Temp Pulse Resp BP Pulse Ox O2 Del Method O2 Flow Rate 98.6 F 78 16 105/70 91 Mechanical Ventilator 100 07/11/25 07:00 07/11/25 07:00 07/11/25 07:00 07/11/25 07:00 07/11/25 07:00 07/11/25 07:00 07/07/25 04:00 FiO2 65 07/11/25 07:00 Oxygen Flow Rate (L/min) 100 Oxygen Delivery Method Mechanical Ventilator Weight: 63.1 kg Body Mass Index (BMI) 21.8 Intake & Output: Intake and Output for Last 24 Hours 07/09/25 07/10/25 07/11/25 23:59 23:59 23:59 Intake Total 3038.71 / 3076.66 2917.76 / 3028.27 1842.39 / 1842.39 Output Total 3015 / 3015 705 / 1005 550 / 550 Balance 23.71 / 61.66 2212.76 / 2023.27 1292.39 / 1292.39 Lab / Micro Data 07/11/25 03:20 07/11/25 03:20 Labs: Laboratory Results - last 24 hr 07/07/25 11:01: Acid Fast Stain SEE PATHOLOGY REPORT, Miscellaneous Cytology SEE PATHOLOGY REPORT 07/11/25 03:20: WBC 21.0 H, RBC 3.47 L, Hgb 10.5 L, Hct 33.5 L, MCV 96.5, MCH 30.3, MCHC 31.3 L, RDW Std Deviation 52.9 H, RDW Coeff of Hilda 15.0 H, Plt Count 372, MPV 10.0, Immature Gran % (Auto) 0.800, Neut % (Auto) 92.1 H, Lymph % (Auto) 4.2 L, [place] % (Auto) 2.8, Eos % (Auto) 0.0, Baso % (Auto) 0.1, Absolute Neuts (auto) 19.3 H, Absolute Lymphs (auto) 0.88, Nucleated RBC % 0, Sodium 144, Potassium 3.7, Chloride 110 H, Carbon Dioxide 27.5, Anion Gap 7, BUN 41 H, C reatinine 0.63 L, Estim Creat Clear Calc 52.51, Est GFR (MDRD) Non-Af 90, B UN/Creatinine Ratio 64.6 H, Glucose 219 H, Calcium 7.8 Micro: Microbiology 07/07/25 08:35 Sputum, Induced/Lukens Gram Stain - Final 07/07/25 08:35 Sputum, Induced/Lukens Respiratory Culture - Final Culture exhibits no growth. 07/07/25 11:01 Bronchial Lavage - Bronchial Gram Stain - Final 07/07/25 11:01 Bronchial Lavage - Bronchial Respiratory Culture - Final Culture exhibits no growth. 07/06/25 11:55 Blood Culture (Wb) - Left Wrist Blood Culture - Preliminary No growth in 48 hours. 07/06/25 11:59 Blood Culture (Wb) - Right Hand Blood Culture - Preliminary No growth in 48 hours. 07/06/25 15:12 Mucosa - Nasopharyngeal Respiratory Panel (PCR) - Final 07/06/25 16:10 Nasal Secretion MRSA (PCR) - Final 07/06/25 15:12 Mucosa - Nasopharyngeal Coronavirus COVID-19 PCR - Final 07/06/25 11:46 Urine Catheter - High Streptococcus pneumoniae Antigen (M - Final 07/06/25 11:46 Urine Catheter - High Legionella Antigen - Final ABG Data ABG results: ABG 07/11/25 05:13 Specimen Type ART Sample Site L Radial pH 7.36 Bicarbonate Actual 28.0 H Total CO2 30 Base Excess 3 H O2 Saturation 88 L O2 % 70.0 ABG pCO2 49.6 H ABG pO2 57 L Herve Test Positive Respiration Rate 16 O2 Delivery Device Adult Vent Vent Mode AC Tidal Volume 400.0 POC PEEP 5 Radiography Diagnostic Testing: Radiology Impression Chest X-Ray 07/10/25 20:10 IMPRESSION: 1. Support lines/tubes in stable positioning, as above. 2. Slight increased size of the small-moderate right pneumothorax since prior exam. 3. Unchanged diffuse bilateral hazy airspace opacities which may be infectious/inflammatory and/or related to pulmonary edema. No sizable pleural effusion. Stable cardiomegaly. Reading Location: [id number] Chest X-Ray 07/11/25 04:15 IMPRESSION: Endotracheal tube is in good position. Enteric feeding tube is in good position. Right internal jugular central catheter is in good position. Right thoracostomy pleural drainage catheter is in good position. Mild increase in moderate right pneumothorax. Unchanged passive atelectasis of the right lung. Unchanged multifocal airspace disease of the lungs which came secondary to pulmonary edema and/or pneumonia. Unchanged cardiomegaly. Reading Location: [place] [id number] Physical Exam Narrative GENERAL: On the vent sedated HEENT: Atraumatic; normocephalic, ET tube EYES; Anicteric, Normal Conjunctiva NECK; supple, normal thyroid, RESPIRATORY: Diminished to auscultation, chest tube on the right side CARDIOVASCULAR: Regular S1 S2, GI: soft, normoactive bowel sounds, : No Renal angle tenderness; EXTREMITIES: No edema, no clubbing, MUSCULOSKELETAL: no muscle wasting NEURO: Unable to assess patient on the vent SKIN: No Rash PSYCH; unable to assess Assessment & Plan Assessment/Plan (1) Acute respiratory failure with hypoxia: PLAN: Plan Patient is an 80-year-old female who was admitted from the transitional care unit with hypoxia. An assessment of pneumonia with ARDS was made patient was admitted to the intensive care unit placed on noninvasive ventilation BiPAP 1. Acute hypoxic respiratory failure ? Secondary to pneumonia with ARDS admitted to the intensive care unit. Patient was placed on noninvasive ventilation BiPAP case was apparently discussed with patient regarding her CODE STATUS she is agreeable to brief trial of intubation. Consult placed to healthcare social worker.. Patient clinical condition deteriorated resulting in patient being intubated. Case was discussed with Dr. Browning with intensive care ? 07/08/2025; patient underwent bronchoscopy the day prior findings as below Bilateral infiltrate, The airway examination of the left lung was normal. Scant, mucoid secretions were found in the right mainstem bronchus. Bronchoalveolar lavage was performed.. Patient WBC count remains elevated. Patient remains on the vent. Vent adjustment deferred to healthcare social worker ? 07/09/2025; patient remains on the vent and as stated below patient did develop right-sided pneumothorax, subsequent imaging studies ordered ? 07/10/2025; Patient remains on the vent chest x-ray this morning did show interval slight improvement of right pneumothorax now measuring approximately 1.2 cm in depth, previously 1.5 cm. Otherwise, grossly unchanged lung findings. 2. Pneumonia with suspected gram-negative organisms ? Patient presented with respiratory failure described above placed on broad- spectrum antibiotic therapy cultures sent ? 07/09/2025; patient remains on the vent cultures sent following patient bronchoscopy still pending 3. Septic shock ? Secondary to pneumonia patient had to be started on norepinephrine in addition to hydrocortisone. Remains on broad-spectrum antibiotic therapy with piperacillin/tazobactam as well as vancomycin ? 07/09/2025; patient on epinephrine on hold 4. Right-sided pneumothorax ?Chest x-ray obtained on 06/08/2025 did show Interval development of a right- sided pneumothorax. Chest tube was subsequently placed by Dr. Browning with intensive care ? 07/10/2025; Patient remains on the vent chest x-ray this morning did show interval slight improvement of right pneumothorax now measuring approximately 1.2 cm in depth, previously 1.5 cm. Otherwise, grossly unchanged lung findings.. Patient apparently has an air leak plan is to manage conservatively ? 07/11/2025;Patient chest x-ray did demonstrate mild increase in the moderate right-sided hemothorax. Right thoracostomy pleural drainage catheter was reported to be in good position. There is unchanged multifocal airspace disease. Patient being managed with chest tube to wall suction as well as minimal PEEP as much as tolerated. Plan is to repeat chest x-ray later today and if there is further increase we will consult general surgery for surgical chest tube 5. Paroxysmal A-fib ? Patient is on amiodarone as well as systemic anticoagulation with apixaban ? 07/09/2025; patient amiodarone has been discontinued 6. Anemia ? Secondary to chronic disorder monitoring H&H and transfuse if patient becomes symptomatic or hemoglobin falls below 7 ? 07/09/2025; patient hemoglobin level down to 10.9, was 13.1 on 07/01/2025. Will continue with monitoring with daily CBC with differential 7. Mild leukocytosis ? Secondary to patient underlying infection plan is to treat underlying clinical etiology 8. Essential hypertension ? Patient is on lisinopril held following patient intubated 9. Hypokalemia -Corrected per protocol, repeat potassium level ordered in a.m. 10. DVT prophylaxis ? Patient is on apixaban Time spent in the patient's overall evaluation,decision-making process, review of diagnostic data, adjustment of management, discussion with other providers, nursing nursing and ancillary staff involved in patient's care documentation, 50 Minutes Charges/Coding Visit Charges Inpatient E&M: 77774 [facility] Hosp L3
[2025-07-11 07:23] LABS: Allen Test Positive; Base Excess 3 mmol/L (-2 to +2); FI02 65.0; PEEP 5; PO2 47 mmHG (75-100); RR 16; SITE L Radial; SO2 80 % (94-98)
[2025-07-11] MEDS: Chlorhexidine 15 ML PO ×2 (09:49→21:27)
[2025-07-11] MEDS: Pantoprazole Sodium 40 MG in 0.9% Normal Saline (100mL MB+) 100 ML 300 MG IV (09:50)
--- NOTE | 2025-07-11 10:12 | PCM.PN.TICU ---
Objective Data Objective Data Vital Signs: Vital Signs Last response Temperature 37.0 C 07/11/25 07:00 Temperature Source Core 07/11/25 07:00 Pulse Rate 78 07/11/25 07:00 Pulse Strength Weak (1+) 07/10/25 20:20 Respiratory Rate 16 07/11/25 07:00 Respiratory Effort Normal, Non-Labored, Mechanically Ventilated 07/11/25 03:45 Respiratory Depth Normal 07/11/25 03:45 Respiratory Pattern Normal 07/11/25 06:39 Blood Pressure 105/70 07/11/25 07:00 Blood Pressure Mean 81 07/11/25 07:00 Blood Pressure Source Monitor 07/11/25 07:00 Blood Pressure Position Semi-Fowlers 07/11/25 07:00 Blood Pressure Location Right Arm 07/11/25 07:00 Pulse Ox 91 07/11/25 07:00 Oxygen Delivery Method Mechanical Ventilator 07/11/25 07:00 Oxygen Flow Rate (L/min) 100 07/07/25 04:00 Fraction of Inspired Oxygen (FIO2) 65 07/11/25 07:00 I&O: I&O Last 24 Hours 07/10/25 07/10/25 07/11/25 11:59 23:59 11:59 Intake Total 1901.89 / 3028.27 1015.87 / 3028.27 1892.39 / 1892.39 Output Total 230 / 1005 475 / 1005 550 / 550 Balance 1671.89 / 2023.27 540.87 / 3.27 1342.39 / 1342.39 I&O: Total Stay 07/06/25 10:37 thru 07/11/25 09:51 Intake Total 79354.39 Output Total 7825 Balance 5279.39 Current Meds Ordered / Administered: Current meds ordered / Administered Generic Name Dose Route Start Last Admin Trade Name Freq PRN Reason Stop Dose Admin Acetaminophen 650 mg 07/07/25 08:24 07/09/25 14:05 Acetaminophen 650 Mg/20 Ml Udc GT 650 mg Q4H PRN PRN Administration Fever, pain 1-10 Al Hydroxide/Mg Hydroxide 30 ml 07/07/25 08:23 Mag Hydrox/Al Hydrox/Simeth 30 Ml Udc GT Q6H PRN PRN Gastric Burning Albuterol Sulfate 2.5 mg 07/06/25 15:03 Albuterol 2.5 Mg/3 Ml Vial.Neb. INHALATION Q2H PRN PRN Dyspnea, wheezing Albuterol/Ipratropium 3 ml 07/06/25 15:03 07/11/25 06:38 Ipratropium/Albuterol Sulfate 3 Ml Ampul.Neb INHALATION 3 ml Q4HWA.RT DANIELA Administration Chlorhexidine Gluconate 15 ml 07/07/25 22:00 07/11/25 09:49 Chlorhexidine 15 Ml PO 15 ml BID DANIELA Administration Chlorhexidine Gluconate 1 each 07/08/25 10:00 07/11/25 03:12 Chlorhexidine Gluc 2% Cloth 1 Each [place] TOPICAL 1 each DAILY DANIELA Administration Guaifenesin 10 ml 07/07/25 08:23 Guaifenesin 10 Ml Udc (200mg/10ml) GT Q4H PRN PRN COUGH Hydralazine HCl 10 mg 07/06/25 15:03 Hydralazine 20 Mg/Ml Vial IV Q4H PRN PRN SBP > 160 Protocol Piperacillin Sod/Tazobactam 50 mls @ 12.5 mls/hr 07/06/25 22:00 07/11/25 09:51 Sod 3.375 gm/ Sodium Chloride IV Infused Q8 DANIELA Infusion Vancomycin IV-PHARMACY TO DOSE 500 mls @ 250 mls/hr 07/06/25 15:03 1 each/ Sodium Chloride IV X1 PRN Rx to Dose Protocol Vancomycin HCl 1,000 mg/ 270 mls @ 250 mls/hr 07/07/25 04:00 07/11/25 04:56 Sodium Chloride IV Infused Q12H DANIELA Infusion Sodium Chloride 250 mls @ 15 mls/hr 07/06/25 21:20 07/09/25 16:29 IV 0 mls/hr .[id number] PRN Infusion Saline Flush Sodium Chloride 250 mls @ 15 mls/hr 07/06/25 21:20 07/09/25 08:01 IV Infused .[id number] PRN Infusion Additional IVPB Infusion Fentanyl 100 mls @ 5 mls/hr 07/07/25 07:40 07/11/25 07:00 CONT INF 175 mcg/hr UD DANIELA 17.5 mls/hr Protocol Titration 50 MCG/HR Norepinephrine Bitartrate 8 mg 250 mls @ 9.375 mls/hr 07/07/25 08:40 07/11/25 07:00 / Sodium Chloride CONT INF 5 mcg/min .[id number] DANIELA 9.4 mls/hr Protocol Titration 5 MCG/MIN Pantoprazole Sodium 40 mg/ 100 mls @ 300 mls/hr 07/07/25 10:30 07/11/25 09:50 Sodium Chloride IV 300 mls/hr Q24 DANIELA Administration Enteral Nutritional Formula 1,000 mls @ 55 mls/hr 07/08/25 09:45 07/11/25 01:35 Vital Af 1.2 John Liquid GT 0 mls/hr .[id number] DANIELA Infusion Propofol 1,000 mg in 100 mls @ 3.786 mls/hr 07/09/25 05:35 07/11/25 07:00 Diprivan CONT INF 45 mcg/kg/min .Q12H DANIELA 17 mls/hr Protocol Titration 10 MCG/KG/MIN Amiodarone HCl 360 mg/ 200 mls @ 16.667 mls/hr 07/11/25 02:30 07/11/25 03:12 Dextrose CONT INF 07/11/25 20:29 0.5 mg/min .Q12H DANIELA 16.7 mls/hr 0.5 MG/MIN Administration Loperamide HCl 2 mg 07/07/25 08:23 Loperamide 2 Mg Capsule GT Q4H PRN PRN DIARRHEA Melatonin 3 mg 07/07/25 08:23 Melatonin 3 Mg Tablet GT QHS PRN PRN INSOMNIA Methylprednisolone Sodium Succinate 40 mg 07/11/25 14:00 Methylprednisolone Sod Succ 40 Mg/Ml Vial IV Q8 DANIELA Metoclopramide HCl 5 mg 07/11/25 14:00 Metoclopramide 10 Mg/2 Ml Vial IV Q8 DANIELA Midazolam HCl 2 mg 07/11/25 10:09 Midazolam 2 Mg/2 Ml Syringe IV Q2H PRN PRN AGITATION Ondansetron HCl 4 mg 07/06/25 15:03 Ondansetron 4 Mg/2 Ml Vial IV Q8H PRN PRN NAUSEA/VOMITING Senna/Docusate Sodium 2 tablet 07/09/25 22:00 07/11/25 09:50 Senna/Docusate Sodium 1 Tablet GT Not Given BID DANIELA Sodium Chloride 10 - 40 ml 07/06/25 16:07 07/11/25 09:50 0.9% Saline Lock 10 Ml Syringe IV 10 ml UD PRN Administration SALINE FLUSH Sodium Chloride 10 - 40 ml 07/06/25 21:20 0.9% Saline Lock 10 Ml Syringe IV UD PRN SALINE FLUSH Vancomycin Protocol 1 lab 07/12/25 02:30 Vancomycin Trough/Random Due [facility] 07/12/25 04:30 DAILY [facility] Lab / Micro Data 07/11/25 03:20 07/11/25 03:20 Labs: Laboratory Results - last 24 hr 07/07/25 11:01: Acid Fast Stain SEE PATHOLOGY REPORT, Miscellaneous Cytology SEE PATHOLOGY REPORT 07/11/25 03:20: WBC 21.0 H, RBC 3.47 L, Hgb 10.5 L, Hct 33.5 L, MCV 96.5, MCH 30.3, MCHC 31.3 L, RDW Std Deviation 52.9 H, RDW Coeff of Hilda 15.0 H, Plt Count 372, MPV 10.0, Immature Gran % (Auto) 0.800, Neut % (Auto) 92.1 H, Lymph % (Auto) 4.2 L, [place] % (Auto) 2.8, Eos % (Auto) 0.0, Baso % (Auto) 0.1, Absolute Neuts (auto) 19.3 H, Absolute Lymphs (auto) 0.88, Nucleated RBC % 0, Sodium 144, Potassium 3.7, Chloride 110 H, Carbon Dioxide 27.5, Anion Gap 7, BUN 41 H, Creatinine 0.63 L, Estim Creat Clear Calc 52.51, Est GFR (MDRD) Non-Af 90, BUN/Creatinine Ratio 64.6 H, Glucose 219 H, Calcium 7.8 ABG Data ABG results: ABG 07/11/25 07/11/25 05:13 07:19 Specimen Type ART ART Sample Site L Radial L Radial pH 7.36 7.35 Bicarbonate Actual 28.0 H 28.7 H Total CO2 30 30 Base Excess 3 H 3 H O2 Saturation 88 L 80 L O2 % 70.0 65.0 ABG pCO2 49.6 H 51.6 H ABG pO2 57 L 47 L Herve Test Positive Positive Respiration Rate 16 16 O2 Delivery Device Adult Vent Adult Vent Vent Mode AC AC Tidal Volume 400.0 375.0 POC PEEP 5 5 Imaging Radiology Impression Chest X-Ray 07/10/25 20:10 IMPRESSION: 1. Support lines/tubes in stable positioning, as above. 2. Slight increased size of the small-moderate right pneumothorax since prior exam. 3. Unchanged diffuse bilateral hazy airspace opacities which may be infectious/inflammatory and/or related to pulmonary edema. No sizable pleural effusion. Stable cardiomegaly. Reading Location: [id number] Chest X-Ray 07/11/25 04:15 IMPRESSION: Endotracheal tube is in good position. Enteric feeding tube is in good position. Right internal jugular central catheter is in good position. Right thoracostomy pleural drainage catheter is in good position. Mild increase in moderate right pneumothorax. Unchanged passive atelectasis of the right lung. Unchanged multifocal airspace disease of the lungs which came secondary to pulmonary edema and/or pneumonia. Unchanged cardiomegaly. Reading Location: [place] [address] Assessment and Plan . Assessment and plan: 1. ARDS: prolonged resp illess(approx 3 weeks). Intubated 07/07 with worsening infiltrates. Bronch unrevealing for viral/bacterial pathogens. Cell Count neutrophilic. AC 16/375/65/5. 2. Sedation: on fent and propofol. RASS: -3 at current. Prn versed orderded. 3. Pneumonia: Prolonged hospital course. Initial imaging appeared to be c/w pneumonia: basilar consolidation/GGO. Worse after initial admit and intubated 07/07. Cultures unrevealing. On Vanc/zosyn. Viral studies unrevealing. ? post infectious organizing pneumonia--> Steroids ordered(BAL not lymphocytic). 4. PTX: Small CT in place. Small leak. PTX worse. Will need surgical CT. Will d/w IM. 5. High Residuals: Hold TFs. Add reglan. Trickle TFs in am 6. Shock: Suspect sedation effect. Will follow. 7. Afib: complicated by RVR. On amio gtt. Rate controlled at current. 8. FEN: holding TFs. 9. PX: Chemical 10. DNR Kevin Cruz MD cc time 50 minutes entire encounter done via telemedicine Physical Exam Narrative intubated, sedated pupils:= ETT in place CV: irreg, irreg Chest: = BS, Coarse Abd: soft, nt, +bs Ext: no c/e/c Skin: no rashes Neuro: sedated Subjective Subjective worsening PTX noted.
[2025-07-11] MEDS: Propofol 10MG/Ml 1,000 MG/100 ML Bottle 17 MG CONT INF ×3 (10:27→20:18)
--- NOTE | 2025-07-11 11:55 | NURSING ---
1155: Dr Zuleta at bedside for new chest tube placement. Timeout taken. Consent obtained by patient next of kin Michael Root, witnessed by Stephanai Cruz. 1200: Lidocaine given at operative site. BP 96/60, HR 83, RR 29 1205: BP 99/83, HR 81, RR 29 1210: BP 90/63, HR 85, RR 16 1215: New chest tube in place. BP 95/53, HR 82, RR 16 1220: BP 98/60, HR 85, RR 18 1225: BP 96/58, HR 93, RR 16 1230: BP 83/62, HR 95, RR 24 1235: BP 97/60, HR 95, RR 24 1240: BP 89/58, HR 93, RR 16 1245: cxray complete, chest tube needs advanced lower. BP 90/63, HR 97, RR 20 1250: Dr. Zuleta at bedside adjusting tube BP 93/65, HR 93, RR 21 1255: Old chest tube removed. BP 91/63, HR 92, RR 18 1300: Repeat CXRAY complete. BP 91/60, HR 92, RR 25 1305: BP 91/64, HR 91, RR 21 1310: BP 86/64, HR 91, RR 21 1315: BP 83/57, HR 92, RR 19
[2025-07-11] MEDS: Lidocaine 1%/Epi 1:100 (30ml) 30 ML VIAL OPERA.SITE (12:00)
--- NOTE | 2025-07-11 12:00 | RAD_ITS ---
PROCEDURE: CHEST 1 VIEW (PORTABLE) 07/11/2025 REASON FOR EXAM: PTX TECHNIQUE: Frontal view of the chest. COMPARISON: Chest radiograph 07/11/2025 at 4:16 a.m. FINDINGS: Redemonstrated right pneumothorax which appears slightly decreased in size. Atelectatic changes of the right lung. Stable enlarged cardiac silhouette on AP projection. Endotracheal tube appropriately positioned proximally 3.7 cm above the helga. Partially visualized enteric feeding catheter extending to the region of the stomach. Right internal jugular venous catheter extends to the region of the superior vena cava. RAD/Chest 1 View (Portable) IMPRESSION: Redemonstrated right pneumothorax which appears slightly decreased in size. Reading Location: [facility]
--- NOTE | 2025-07-11 12:00 | RAD_ITS ---
PROCEDURE: ABDOMEN SINGLE VIEW (PORTABLE) 07/11/2025 REASON FOR EXAM: HIGH RESIDUALS TECHNIQUE: Procedure Code: RADABD_P Modality: DX Procedure: ABDOMEN SINGLE VIEW (PORTABLE) COMPARISON: CT from June 22, 2025 FINDINGS: There is a nonspecific but nonobstructive bowel-gas pattern. A nasogastric tube is noted and is appropriate. Osseous structures are grossly unremarkable. No pathologic calcifications. RAD/Abdomen Single View (Portable) IMPRESSION: NG tube in place. No acute abnormality noted. If concern persists, consider C T. Reading Location[facility]
--- NOTE | 2025-07-11 13:00 | RAD_ITS ---
PROCEDURE: CHEST 1 VIEW (PORTABLE) 07/11/2025 REASON FOR EXAM: CHEST TUBE TECHNIQUE: Frontal view of the chest. COMPARISON: Multiple prior chest x-ray with most recent dated 07/11/2025. FINDINGS: Redemonstrated trace right pneumothorax which appears slightly decreased in size. Atelectatic changes of the right lung. Stable enlarged cardiac silhouette on AP projection. Endotracheal tube appropriately positioned proximally 4.9 cm above the helga. Partially visualized enteric feeding catheter extending to the region of the stomach. Right internal jugular venous catheter extends to the region of the superior vena cava. Stable positioning of right chest tube. Chronic deformity of the right humeral head. RAD/Chest 1 View (Portable) IMPRESSION: Stable positioning of supportive apparatus. Trace right apical pneumothorax ca n still be visualized on the x-ray, mildly decreased in size versus stable given mild differences in projection. Reading Location: [facility]
--- NOTE | 2025-07-11 13:10 | RAD_ITS ---
PROCEDURE: CHEST 1 VIEW (PORTABLE) 07/11/2025 REASON FOR EXAM: CT PLACEMENT TECHNIQUE: Frontal view of the chest. COMPARISON: Multiple prior radiographs, most recent dated 07/11/2025 FINDINGS: Redemonstrated trace right pneumothorax which appears slightly decreased in size. There are bilateral lung base airspace disease. Stable enlarged cardiac silhouette on AP projection. Endotracheal tube appropriately positioned proximally 4.8 cm above the helga. Partially visualized enteric feeding catheter extending to the region of the stomach. Right internal jugular venous catheter extends to the region of the superior vena cava. Stable positioning of right chest tube. Chronic deformity of the right humeral head. RAD/Chest 1 View (Portable) IMPRESSION: Stable supportive apparatus. Chest tube in unchanged position. Redemonstrated trace right pneumothorax which appears slightly decreased in size. There are stable bilateral lower and mid lung airspace disease. Reading Location: [facility]
--- NOTE | 2025-07-11 13:37 | OP.PCM_ITS ---
Procedures Hospitalists Procedures: [id number] Insertion of Chest Tube Operative Report (Standard) Operative Information Date of Procedure: 07/11/25 Pre-Operative Diagnosis: Expanding spontaneous R pneumothorax s/p small bore chest tube placement Post-Operative Diagnosis: Same Surgery/Procedure Performed: Right thoracostomy tube placement technical information specialist: No Type of Anesthesia: Local (10mL 1% lidocaine) RN Documented Start/Stop Times: Operation Date: 07/07/25 09:30 Case Time Into Room 07/07/25 10:36 Procedure Start 07/07/25 10:39 Procedure End 07/07/25 10:42 Out of Room 07/07/25 10:50 Procedure Start Time: 12:00 Procedure Stop Time: 12:30 Select all DRAINS/GRAFTS/IMPLANTS that apply: Drains (20Fr) Drain details: [place] chest tube Estimated Blood Loss: 5 Specimen collected: No Description of surgery: Procedure name: Insertion of right tube thoracostomy (20 Fr) Procedure in detail : After obtaining consent from patient's family, the procedure was begun following a brief timeout confirming both the patient and the procedure. The insertion site was selected by identifying the intercostal space in the midaxillary line along the inframammary crease. The chest wall was then locally anesthetized with 9 mL Xylocaine. A scalpel was used to incise the skin with an approximately 2 cm transverse incision. Blunt dissection was used to spread the subcutaneous tissue and underlying intercostal muscle fibers. Then through controlled pressure a Mellisa clamp was used to access the pleural cavity. This tract was bluntly spread open and the clamp was exchanged for the chest tube. Chest tube was inserted to a depth of 10 centimeters on the chest tube marking at the skin (this was later increased to 14 cm after preliminary chest x-ray). There was immediate return of air and a mild amount of thin serous fluid after the tube was connected to the Pleur-evac collection device. The Pleur-evac was connected to wall suction with a chest tube suction of -40 cmH2O. There was a near continuous air leak. Chest tube was then tied in with 0 silk suture. The site was dressed with petroleum gauze and regular gauze to pad the skin against the chest tube and this dressing was taped in place with a mesentery at the distal portion of the chest tube to allow for limited movement. A post-procedure chest x-ray was obtained to confirm tube position. Complications: None EBL: 2 mL Surgical Findings: - initial placement slightly shallow with persistent small apical pneumothorax so tube was advanced 4cm and resecured with further decrease of pneumothorax Complications Complications: No
--- NOTE | 2025-07-11 13:37 | EX.PCM.CON.S ---
Assessment & Plan Assessment/Plan (1) Pneumothorax on right: PLAN: Patient is an 80-year-old female in critical condition with ARDS after progression from community-acquired pneumonia who experienced a spontaneous pneumothorax while ventilated 07/11/2025. Unfortunately, initially placed smallbore chest tube has not been able to counter a progressively increasing pneumothorax. I thus presented to patient's bedside and after obtaining consent from patient's son placed a 20 [place] standard [place] thoracostomy tube with radiographic confirmation of near complete resolution of pneumothorax. Chest tube was set to -40 cm water wall suction to try to resolve pneumothorax. Plan to follow with serial x-rays to determine if this suction can be decreased as early as tomorrow. Nursing was instructed on things to watch for with the new tube and asked to provide early notice of any concerns. Remainder of care per secretary receptionist and hospitalist services. Vaughn Zuleta MD General Surgery Endocrine Surgery Pager: [facility] [address] [place] [address], [address] [place] [address] Office: [phone] HPI Consult Data Date of Consult: 07/11/25 HPI Narrative Reason for Consultation: Expanding right pneumothorax HPI Narrative: SUSAN BURRELL, is a 80 F who is presently admitted to [facility] ICU related to an earlier presentation with community-acquired pneumonia progressing to ARDS. She experienced a spontaneous pneumothorax on the right on 07/09/2025 and subsequently underwent placement of smallbore chest tube by the secretary receptionist. Unfortunately over the last 2 days patient's pneumothorax has progressively increased in size and I was contacted to consider placement of a larger chest tube. Nursing deny any acute changes with patient either way and suggest patient has persisted with stable significant ventilatory requirements. [facility] Medical History (Updated 07/11/25 @ 16:[address] Vaughn Zuleta MD) CKD (chronic kidney disease), stage II Anxiety Hydronephrosis of left kidney HTN (hypertension) PAF (paroxysmal atrial fibrillation) Bradycardia SVT (supraventricular tachycardia) Nonrheumatic mitral valve stenosis with insufficiency HLD (hyperlipidemia) Home Medications ?Medication ?Instructions ?Recorded ?Last Taken ?Type apixaban 5 mg tablet (Eliquis) 5 mg PO BID afib #180 tabs 09/02/24 07/06/25 Rx zolpidem 12.5 mg tablet,extended 12.5 mg PO QDAY PRN insomnia 03/03/25 07/05/25 History release,multiphase amiodarone 200 mg tablet 200 mg PO DAILY afib #90 tabs 06/01/25 07/06/25 Rx trazodone 50 mg tablet 50 - 100 mg PO QHS sleep 06/22/25 07/05/25 History alprazolam 0.25 mg tablet 0.25 mg PO BID PRN 07/02/25 07/06/25 Rx Anxiety/Agitation #4 tabs ipratropium 0.5 mg-albuterol 3 mg 3 ml inhalation Q6H.RT lungs #0 mL 07/02/25 07/06/25 Rx (2.5 mg base)/3 mL nebulization soln lisinopril 10 mg tablet 10 mg PO DAILY BP #0 tabs 07/02/25 07/06/25 Rx loperamide 2 mg capsule 2 mg PO Q4H PRN PRN DIARRHEA #0 07/02/25 07/03/25 Rx caps acetaminophen 500 mg capsule 1,000 mg PO Q6H PRN pain 07/06/25 07/05/25 History Allergy/AdvReac Type Severity Reaction Status Date / Time Sulfa (Sulfonamide Allergy doesnt Verified 07/06/25 10:42 Antibiotics) know why Family History (Updated 07/06/25 @ 14:[address] Lisa Rashid MD) Mother Colon cancer Diabetes Father Diabetes Surgical History S/P trigger finger release Hx of shoulder surgery History of bladder suspension procedure Social History household members: none Smoking Status: Never smoker alcohol intake: never substance use type: does not use caffeine: Yes Type: coffee Number of servings: 1 Physical Exam Const Constitutional Narrative: Intubated and sedated Chest Chest Narrative: Small bore chest tube to right chest wall is loosely anchored at the skin with retraction approximately 2 cm. There is an intermittent airleak on the Pleur-evac box which is initially set to -20 cmH2O suction. There is scant serous output in the collection canister. Lab / Micro Data 07/11/25 03:20 07/11/25 03:20 Labs: Laboratory Results - last 24 hr 07/11/25 03:20: WBC 21.0 H, RBC 3.47 L, Hgb 10.5 L, Hct 33.5 L, MCV 96.5, MCH 30.3, MCHC 31.3 L, RDW Std Deviation 52.9 H, RDW Coeff of Hilda 15.0 H, Plt Count 372, MPV 10.0, Immature Gran % (Auto) 0.800, Neut % (Auto) 92.1 H, Lymph % (Auto) 4.2 L, [place] % (Auto) 2.8, Eos % (Auto) 0.0, Baso % (Auto) 0.1, Absolute Neuts (auto) 19.3 H, Absolute Lymphs (auto) 0.88, Nucleated RBC % 0, Sodium 144, Potassium 3.7, Chloride 110 H, Carbon Dioxide 27.5, Anion Gap 7, BUN 41 H, Creatinine 0.63 L, Estim Creat Clear Calc 52.51, Est GFR (MDRD) Non-Af 90, BUN/Creatinine Ratio 64.6 H, Glucose 219 H, Calcium 7.8 Micro: Microbiology 07/06/25 11:55 Blood Culture (Wb) - Left Wrist Blood Culture - Final No growth in 5 days. 07/06/25 11:59 Blood Culture (Wb) - Right Hand Blood Culture - Final No growth in 5 days. ABG Data ABG results: ABG 07/11/25 07/11/25 05:13 07:19 Specimen Type ART ART Sample Site L Radial L Radial pH 7.36 7.35 Bicarbonate Actual 28.0 H 28.7 H Total CO2 30 30 Base Excess 3 H 3 H O2 Saturation 88 L 80 L O2 % 70.0 65.0 ABG pCO2 49.6 H 51.6 H ABG pO2 57 L 47 L Herve Test Positive Positive Respiration Rate 16 16 O2 Delivery Device Adult Vent Adult Vent Vent Mode AC AC Tidal Volume 400.0 375.0 POC PEEP 5 5 Imaging Radiology Impression Chest X-Ray 07/10/25 20:10 IMPRESSION: 1. Support lines/tubes in stable positioning, as above. 2. Slight increased size of the small-moderate right pneumothorax since prior exam. 3. Unchanged diffuse bilateral hazy airspace opacities which may be infectious/inflammatory and/or related to pulmonary edema. No sizable pleural effusion. Stable cardiomegaly. Reading Location: [id number] Chest X-Ray 07/11/25 04:15 IMPRESSION: Endotracheal tube is in good position. Enteric feeding tube is in good position. Right internal jugular central catheter is in good position. Right thoracostomy pleural drainage catheter is in good position. Mild increase in moderate right pneumothorax. Unchanged passive atelectasis of the right lung. Unchanged multifocal airspace disease of the lungs which came secondary to pulmonary edema and/or pneumonia. Unchanged cardiomegaly. Reading Location: [id number] Chest X-Ray 07/11/25 12:00 IMPRESSION: Redemonstrated right pneumothorax which appears slightly decreased in size. Reading Location: [facility] X-Ray 07/11/25 12:00 IMPRESSION: NG tube in place. No acute abnormality noted. If concern persists, consider CT. Reading Location: [facility] Charges/Coding Visit Charges Inpatient E&M: 35796 Init Hosp L2
[2025-07-11] MEDS: Norepinephrine 8 MG in 0.9% Normal Saline (250mL Bag) 242 ML 9.4 MG CONT INF (23:14)
[2025-07-12] VITALS (49 sets, daily range): BP systolic 85–137; BP diastolic 63–94; PULSE 86–117; RESP 16–18; TEMP 37.5–37.9; O2SAT 94–99; BMI 21.9
[2025-07-12] MEDS: Amiodarone 360 MG in Dextrose 5% Viaflo Bag 192.8 ML 16.7 MG CONT INF ×3 (00:09→23:27)
[2025-07-12] MEDS: Propofol 10MG/Ml 1,000 MG/100 ML Bottle 17 MG CONT INF ×3 (01:13→16:18)
[2025-07-12] MEDS: fentaNYL drip 100 ML 17.5 MCG CONT INF ×4 (02:53→18:32)
[2025-07-12 03:53] LABS: Allen Test Positive; Base Excess 6 mmol/L (-2 to +2); FI02 40.0; PEEP 5; PO2 55 mmHG (75-100); RR 16; SITE R Radial; SO2 87 % (94-98)
[2025-07-12 03:56] LABS: Vancomycin, Trough Level 18.4 ug/mL (5.0-15.0)
--- NOTE | 2025-07-12 04:10 | RAD_ITS ---
PROCEDURE: CHEST 1 VIEW (PORTABLE) 07/12/2025 REASON FOR EXAM: PTX TECHNIQUE: Frontal view of the chest. COMPARISON: 07/11/2025 FINDINGS: Hardware: Right-sided chest tube, right IJ central venous catheter, endotracheal tube, and enteric tube unchanged. Heart: Heart size is moderately enlarged. Lungs: Right apical pneumothorax not well visualized. Scattered bilateral airspace opacities. Bones: Degenerative changes are identified within the thoracic spine. RAD/Chest 1 View (Portable) IMPRESSION: Right apical pneumothorax not well visualized. Scattered bilateral airspace op acities Reading Location[facility]
[2025-07-12 04:31] LABS: Hematocrit 37.0 % (37-47); Hemoglobin 11.8 g/dL (12.0-15.0); Immature Granulocytes Count 0.150 X10^3/uL (0.0-0.0); Mean Corp Hgb Conc 31.9 g/dL (32-36); Mean Corpuscular Volume 95.9 fL (81-99); Mean Platelet Vol. 10.3 fl (6.2-12.0); NRBC Flagged by Analyzer 0 % (0-5); Platelet Count 387 K/mm3 (150-450); RBC Distribution Width CV 15.2 % (11.6-14.6); RBC Distribution Width SD 53.3 fl (35.1-43.9); Red Blood Count 3.86 M/mm3 (4.2-5.4); White Blood Count 18.5 K/mm3 (4.4-11.0)
[2025-07-12] MEDS: Vancomycin HCl 1,000 MG in 0.9% Normal Saline (250mL Bag) 250 ML 250 MG IV ×2 (04:31→16:19)
[2025-07-12 04:51] LABS: Anion Gap 8 (5-15); BUN 35 mg/dL (4-19); BUN/Creat Ratio 58.8 RATIO (10-20); Calcium,Total 7.8 mg/dL (7.6-11.0); Carbon Dioxide 27.3 mmol/L (21.0-32.0); Chloride 109 mmol/L (98-108); Estimated Creatinine Clearance 52.51 ml/min (50-250); Glucose 204 mg/dL (70-99); Potassium 4.6 mmol/L (3.3-5.1)
[2025-07-12] MEDS: Piperacil/Tazobactam 3.375 GM in 0.9% Normal Saline (50mL MB+) 50 ML IV ×3 (05:40→20:46)
--- NOTE | 2025-07-12 06:20 | PCM.RX.CS ---
Consult Antibiotic Management Pharmacy has been consulted to manage selected antibiotic: Vancomycin Type of Intervention Type of Consult: Follow-up Labs Labs: Sodium 144 mmol/L (133-145) 07/12/25 04:20 Potassium 4.6 mmol/L (3.3-5.1) 07/12/25 04:20 Chloride 109 mmol/L (98-108) H 07/12/25 04:20 Carbon Dioxide 27.3 mmol/L (21.0-32.0) 07/12/25 04:20 Anion Gap 8 (5-15) 07/12/25 04:20 BUN 35 mg/dL (4-19) H 07/12/25 04:20 Creatinine 0.59 mg/dL (0.70-1.20) L 07/12/25 04:20 Est GFR (MDRD) Non-Af 91 (>60) 07/12/25 04:20 BUN/Creatinine Ratio 58.8 RATIO (10-20) H 07/12/25 04:20 Glucose 204 mg/dL (70-99) H 07/12/25 04:20 Vancomycin Trough 18.4 ug/mL (5.0-15.0) H 07/12/25 03:30 Microbiology Microbiology: Microbiology 07/06/25 11:55 Blood Culture (Wb) - Left Wrist Blood Culture - Final No growth in 5 days. 07/06/25 11:59 Blood Culture (Wb) - Right Hand Blood Culture - Final No growth in 5 days. 07/07/25 08:35 Sputum, Induced/Lukens Gram Stain - Final 07/07/25 08:35 Sputum, Induced/Lukens Respiratory Culture - Final Culture exhibits no growth. 07/07/25 11:01 Bronchial Lavage - Bronchial Gram Stain - Final 07/07/25 11:01 Bronchial Lavage - Bronchial Respiratory Culture - Final Culture exhibits no growth. 07/06/25 15:12 Mucosa - Nasopharyngeal Respiratory Panel (PCR) - Final 07/06/25 16:10 Nasal Secretion MRSA (PCR) - Final 07/06/25 15:12 Mucosa - Nasopharyngeal Coronavirus COVID-19 PCR - Final 07/06/25 11:46 Urine Catheter - High Streptococcus pneumoniae Antigen (M - Final 07/06/25 11:46 Urine Catheter - High Legionella Antigen - Final Goal Trough Goal Trough: 15-20 mcg/mL Pharmacy Plan for Drug Dosing Pharmacy Plan for Drug Dosing: Pharmacy Service will continue to monitor and adjust dosing as required. TROUGH 18.4 @ 12.5 HOURS. NO CHANGES, FOLLOW UP TROUGH IN 4 DAYS Follow-Up Labs Follow-Up Labs: Trough: Vancomycin Date/Time Labs Ordered Labs to be done on [date and time ordered]: 07/16 @ 0590
--- NOTE | 2025-07-12 07:20 | NURSING ---
0720: Dr. Zuleta at bedside updated on patient status overnight and chest tube drainage. Tube suction decreased to -30 0745: Dr. Gonzalez at bedside updated on patient status over night including her HR 100-110s afib, temp 99-100.1. Informed RN tube feed can be restarted. 0938: Dr. Nancy lorenz at bedside updated on patient status including HR 100-110 afib, temp 99-100.1 and vent settings. Agreed tube feed can be restarted. Blood cultures and urine cultures ordered. One time lasix order as well.
--- NOTE | 2025-07-12 07:23 | PN.SURG_ITS ---
Subjective Subjective Patient seen and examined during AM rounds. She remains intubated and sedated but nursing reports that they have been able to go down on her vent settings?specifically her FiO2. They otherwise deny any acute events overnight. Objective Data Objective Data Vital Signs: Vital Signs Temp Pulse Resp BP Pulse Ox O2 Del Method O2 Flow Rate 100.1 F H 95 16 98/74 97 Mechanical Ventilator 100 07/12/25 07:00 07/12/25 07:00 07/12/25 07:00 07/12/25 07:00 07/12/25 07:00 07/12/25 07:00 07/07/25 04:00 FiO2 50 07/12/25 07:00 Oxygen Flow Rate (L/min) 100 Oxygen Delivery Method Mechanical Ventilator Weight: 139 lb 12.369 oz Body Mass Index (BMI) 21.9 Intake & Output: Intake and Output for Last 24 Hours 07/10/25 07/11/25 07/12/25 23:59 23:59 23:59 Intake Total 2917.76 / 3028.27 3384.55 / 3426.26 737.48 / 737.48 Output Total 705 / 1005 1370 / 1495 517 / 517 Balance 2212.76 / 2023.27 2014.55 / 1931.26 220.48 / 220.48 Lab / Micro Data 07/12/25 04:20 07/12/25 04:20 Labs: Laboratory Results - last 24 hr 07/12/25 03:30: Vancomycin Trough 18.4 H 07/12/25 04:20: WBC 18.5 H, RBC 3.86 L, Hgb 11.8 L, Hct 37.0, MCV 95.9, MCH 30.6, MCHC 31.9 L, RDW Std Deviation 53.3 H, RDW Coeff of Hilda 15.2 H, Plt Count 387, MPV 10.3, Immature Gran % (Auto) 0.800, Neut % (Auto) 91.7 H, Lymph % (Auto) 5.1 L, [place] % (Auto) 2.3, Eos % (Auto) 0.0, Baso % (Auto) 0.1, Absolute Neuts (auto) 17.0 H, Absolute Lymphs (auto) 0.95, Nucleated RBC % 0, Sodium 144, Potassium 4.6, Chloride 109 H, Carbon Dioxide 27.3, Anion Gap 8, BUN 35 H, C reatinine 0.59 L, Estim Creat Clear Calc 52.51, Est GFR (MDRD) Non-Af 91, B UN/Creatinine Ratio 58.8 H, Glucose 204 H, Calcium 7.8 Micro: Microbiology 07/06/25 11:55 Blood Culture (Wb) - Left Wrist Blood Culture - Final No growth in 5 days. 07/06/25 11:59 Blood Culture (Wb) - Right Hand Blood Culture - Final No growth in 5 days. 07/07/25 08:35 Sputum, Induced/Lukens Gram Stain - Final 07/07/25 08:35 Sputum, Induced/Lukens Respiratory Culture - Final Culture exhibits no growth. 07/07/25 11:01 Bronchial Lavage - Bronchial Gram Stain - Final 07/07/25 11:01 Bronchial Lavage - Bronchial Respiratory Culture - Final Culture exhibits no growth. 07/06/25 15:12 Mucosa - Nasopharyngeal Respiratory Panel (PCR) - Final 07/06/25 16:10 Nasal Secretion MRSA (PCR) - Final 07/06/25 15:12 Mucosa - Nasopharyngeal Coronavirus COVID-19 PCR - Final 07/06/25 11:46 Urine Catheter - High Streptococcus pneumoniae Antigen (M - Final 07/06/25 11:46 Urine Catheter - High Legionella Antigen - Final ABG Data ABG results: ABG 07/11/25 07/12/25 07:19 03:49 Specimen Type ART ART Sample Site L Radial R Radial pH 7.35 7.38 Bicarbonate Actual 28.7 H 31.4 H Total CO2 30 33 Base Excess 3 H 6 H O2 Saturation 80 L 87 L O2 % 65.0 40.0 ABG pCO2 51.6 H 53.4 H ABG pO2 47 L 55 L Herve Test Positive Positive Respiration Rate 16 16 O2 Delivery Device Adult Vent Adult Vent Vent Mode AC PRVC Tidal Volume 375.0 375.0 POC PEEP 5 5 Clinical Comments Radiography Diagnostic Testing: Radiology Impression Chest X-Ray 07/11/25 12:00 IMPRESSION: Redemonstrated right pneumothorax which appears slightly decreased in size. Reading Location: [facility] X-Ray 07/11/25 12:00 IMPRESSION: NG tube in place. No acute abnormality noted. If concern persists, consider CT. Reading Location: [facility] Chest X-Ray 07/11/25 13:00 IMPRESSION: Stable positioning of supportive apparatus. Trace right apical pneumothorax can still be visualized on the x-ray, mildly decreased in size versus stable given mild differences in projection. Reading Location: [facility] Chest X-Ray 07/11/25 13:10 IMPRESSION: Stable supportive apparatus. Chest tube in unchanged position. Redemonstrated trace right pneumothorax which appears slightly decreased in size. There are stable bilateral lower and mid lung airspace disease. Reading Location: [facility] Chest X-Ray 07/12/25 04:10 IMPRESSION: Right apical pneumothorax not well visualized. Scattered bilateral airspace opacities Reading Location: [facility] Physical Exam Const Constitutional Narrative: Intubated sedated Resp Resp Narrative: Synchronized with the ventilator. Chest tube with persistent airleak but it appears slower rate. There is continued serosanguineous fluid collection in the Pleur-evac box. There is no kinking of the chest tube nor presence of subcutaneous emphysema on the chest wall. Assessment & Plan Assessment/Plan (1) Pneumothorax on right: PLAN: Patient is an 80-year-old female in critical condition with ARDS after progression from community-acquired pneumonia who experienced a spontaneous pneumothorax while ventilated 07/11/2025. Unfortunately, initially placed smallbore chest tube has not been able to counter a progressively increasing pneumothorax. I thus presented to patient's bedside and after obtaining consent from patient's son placed a 20 [place] standard [place] thoracostomy tube with radiographic confirmation of near complete resolution of pneumothorax. A.m. chest x-ray shows apparent resolution of right pneumothorax, however, the lung is still leaking air. Therefore I have decreased the suction to -30 cm of water. Would not plan for any chest tube discontinuation even if the lung sealed while patient is requiring increased ventilator support. Remainder of care per campaign analyst and hospitalist teams. Vaughn Zuleta MD General Surgery Endocrine Surgery Pager: [facility] [address] [place] [address], [facility], [address] [place] [address] Office: [phone] Charges/Coding Visit Charges Inpatient E&M: 82900 Subs Hosp L2
--- NOTE | 2025-07-12 07:26 | PCM.PN.HOSP ---
Reason for Visit Chief Complaint: Dyspnea, orthopnea. Subjective Subjective Patient underwent right thoracostomy tube placement by Dr. Zuleta the day prior. Subsequent imaging studies demonstrated significant reduction in patient's pneumothorax Objective Data Objective Data Vital Signs: Vital Signs Temp Pulse Resp BP Pulse Ox O2 Del Method O2 Flow Rate 100.1 F H 95 16 98/74 97 Mechanical Ventilator 100 07/12/25 07:00 07/12/25 07:00 07/12/25 07:00 07/12/25 07:00 07/12/25 07:00 07/12/25 07:00 07/07/25 04:00 FiO2 50 07/12/25 07:00 Oxygen Flow Rate (L/min) 100 Oxygen Delivery Method Mechanical Ventilator Weight: 63.4 kg Body Mass Index (BMI) 21.9 Intake & Output: Intake and Output for Last 24 Hours 07/10/25 07/11/25 07/12/25 23:59 23:59 23:59 Intake Total 2917.76 / 3028.27 3384.55 / 3426.26 737.48 / 737.48 Output Total 705 / 1005 1370 / 1495 517 / 517 Balance 2212.76 / 2023.27 2014.55 / 1931.26 220.48 / 220.48 Lab / Micro Data 07/12/25 04:20 07/12/25 04:20 Labs: Laboratory Results - last 24 hr 07/12/25 03:30: Vancomycin Trough 18.4 H 07/12/25 04:20: WBC 18.5 H, RBC 3.86 L, Hgb 11.8 L, Hct 37.0, MCV 95.9, MCH 30.6, MCHC 31.9 L, RDW Std Deviation 53.3 H, RDW Coeff of Hilda 15.2 H, Plt Count 387, MPV 10.3, Immature Gran % (Auto) 0.800, Neut % (Auto) 91.7 H, Lymph % (Auto) 5.1 L, [place] % (Auto) 2.3, Eos % (Auto) 0.0, Baso % (Auto) 0.1, Absolute Neuts (auto) 17.0 H, Absolute Lymphs (auto) 0.95, Nucleated RBC % 0, Sodium 144, Potassium 4.6, Chloride 109 H, Carbon Dioxide 27.3, Anion Gap 8, BUN 35 H, Creatinine 0.59 L, Estim Creat Clear Calc 52.51, Est GFR (MDRD) Non-Af 91, BUN/Creatinine Ratio 58.8 H, Glucose 204 H, Calcium 7.8 Micro: Microbiology 07/06/25 11:55 Blood Culture (Wb) - Left Wrist Blood Culture - Final No growth in 5 days. 07/06/25 11:59 Blood Culture (Wb) - Right Hand Blood Culture - Final No growth in 5 days. 07/07/25 08:35 Sputum, Induced/Lukens Gram Stain - Final 07/07/25 08:35 Sputum, Induced/Lukens Respiratory Culture - Final Culture exhibits no growth. 07/07/25 11:01 Bronchial Lavage - Bronchial Gram Stain - Final 07/07/25 11:01 Bronchial Lavage - Bronchial Respiratory Culture - Final Culture exhibits no growth. 07/06/25 15:12 Mucosa - Nasopharyngeal Respiratory Panel (PCR) - Final 07/06/25 16:10 Nasal Secretion MRSA (PCR) - Final 07/06/25 15:12 Mucosa - Nasopharyngeal Coronavirus COVID-19 PCR - Final 07/06/25 11:46 Urine Catheter - High Streptococcus pneumoniae Antigen (M - Final 07/06/25 11:46 Urine Catheter - High Legionella Antigen - Final ABG Data ABG results: ABG 07/12/25 03:49 Specimen Type ART Sample Site R Radial pH 7.38 Bicarbonate Actual 31.4 H Total CO2 33 Base Excess 6 H O2 Saturation 87 L O2 % 40.0 ABG pCO2 53.4 H ABG pO2 55 L Herve Test Positive Respiration Rate 16 O2 Delivery Device Adult Vent Vent Mode PRVC Tidal Volume 375.0 POC PEEP 5 Clinical Comments Radiography Diagnostic Testing: Radiology Impression Chest X-Ray 07/11/25 12:00 IMPRESSION: Redemonstrated right pneumothorax which appears slightly decreased in size. Reading Location: [facility] X-[facility] 07/11/25 12:00 IMPRESSION: NG tube in place. No acute abnormality noted. If concern persists, consider CT. Reading Location: [facility] Chest X-Ray 07/11/25 13:00 IMPRESSION: Stable positioning of supportive apparatus. Trace right apical pneumothorax can still be visualized on the x-ray, mildly decreased in size versus stable given mild differences in projection. Reading Location: [facility] Chest X-Ray 07/11/25 13:10 IMPRESSION: Stable supportive apparatus. Chest tube in unchanged position. Redemonstrated trace right pneumothorax which appears slightly decreased in size. There are stable bilateral lower and mid lung airspace disease. Reading Location: [facility] Chest X-Ray 07/12/25 04:10 IMPRESSION: Right apical pneumothorax not well visualized. Scattered bilateral airspace opacities Reading Location: [facility] Physical Exam Narrative GENERAL: On the vent sedated HEENT: Atraumatic; normocephalic, ET tube EYES; Anicteric, Normal Conjunctiva NECK; supple, normal thyroid, RESPIRATORY: Diminished to auscultation, chest tube on the right side CARDIOVASCULAR: Regular S1 S2, GI: soft, normoactive bowel sounds, : No Renal angle tenderness; EXTREMITIES: No edema, no clubbing, MUSCULOSKELETAL: no muscle wasting NEURO: Unable to assess patient on the vent SKIN: No Rash PSYCH; unable to assess Assessment & Plan Assessment/Plan (1) Acute respiratory failure with hypoxia: PLAN: Plan Patient is an 80-year-old female who was admitted from the transitional care unit with hypoxia. An assessment of pneumonia with ARDS was made patient was admitted to the intensive care unit placed on noninvasive ventilation BiPAP 1. Acute hypoxic respiratory failure ? Secondary to pneumonia with ARDS admitted to the intensive care unit. Patient was placed on noninvasive ventilation BiPAP case was apparently discussed with patient regarding her CODE STATUS she is agreeable to brief trial of intubation. Consult placed to spouting installer.. Patient clinical condition deteriorated resulting in patient being intubated. Case was discussed with Dr. Browning with intensive care ? 07/08/2025; patient underwent bronchoscopy the day prior findings as below Bilateral infiltrate, The airway examination of the left lung was normal. Scant, mucoid secretions were found in the right mainstem bronchus. Bronchoalveolar lavage was performed.. Patient WBC count remains elevated. Patient remains on the vent. Vent adjustment deferred to spouting installer ? 07/09/2025; patient remains on the vent and as stated below patient did develop right-sided pneumothorax, subsequent imaging studies ordered ? 07/10/2025; Patient remains on the vent chest x-ray this morning did show interval slight improvement of right pneumothorax now measuring approximately 1.2 cm in depth, previously 1.5 cm. Otherwise, grossly unchanged lung findings. ? 07/12/2025; patient remains on the vent underwent right thoracostomy tube placement by Dr. Zuleta the day prior. 2. Pneumonia with suspected gram-negative organisms ? Patient presented with respiratory failure described above placed on broad-spectrum antibiotic therapy cultures sent ? 07/09/2025; patient remains on the vent cultures sent following patient bronchoscopy still pending 3. Septic shock ? Secondary to pneumonia patient had to be started on norepinephrine in addition to hydrocortisone. Remains on broad-spectrum antibiotic therapy with piperacillin/tazobactam as well as vancomycin ? 07/09/2025; patient on epinephrine on hold 4. Right-sided pneumothorax ?Chest x-ray obtained on 06/08/2025 did show Interval development of a right-sided pneumothorax. Chest tube was subsequently placed by Dr. Browning with intensive care ? 07/10/2025; Patient remains on the vent chest x-ray this morning did show interval slight improvement of right pneumothorax now measuring approximately 1.2 cm in depth, previously 1.5 cm. Otherwise, grossly unchanged lung findings.. Patient apparently has an air leak plan is to manage conservatively ? 07/11/2025;Patient chest x-ray did demonstrate mild increase in the moderate right-sided hemothorax. Right thoracostomy pleural drainage catheter was reported to be in good position. There is unchanged multifocal airspace disease. Patient being managed with chest tube to wall suction as well as minimal PEEP as much as tolerated. Plan is to repeat chest x-ray later today and if there is further increase we will consult general surgery for surgical chest tube 07/12/2025; Patient underwent right thoracostomy tube placement by Dr. Zuleta the day prior. Subsequent imaging studies demonstrated significant reduction in patient's pneumothorax 5. Paroxysmal A-fib ? Patient is on amiodarone as well as systemic anticoagulation with apixaban ? 07/09/2025; patient amiodarone has been discontinued 6. Anemia ? Secondary to chronic disorder monitoring H&H and transfuse if patient becomes symptomatic or hemoglobin falls below 7 ? 07/09/2025; patient hemoglobin level down to 10.9, was 13.1 on 07/01/2025. Will continue with monitoring with daily CBC with differential 7. Mild leukocytosis ? Secondary to patient underlying infection plan is to treat underlying clinical etiology 8. Essential hypertension ? Patient is on lisinopril held following patient intubated 9. Hypokalemia -Corrected per protocol, repeat potassium level ordered in a.m. 10. DVT prophylaxis ? Patient is on apixaban Time spent in the patient's overall evaluation,decision-making process, review of diagnostic data, adjustment of management, discussion with other providers, nursing nursing and ancillary staff involved in patient's care documentation, 40 Minutes Charges/Coding Visit Charges Inpatient E&M: 95601 Subs Hosp L2
[2025-07-12] MEDS: CHLORHEXIDINE GLUC 2% CLOTH 1 EACH TOWELETTE TOPICAL (07:52)
[2025-07-12] MEDS: Chlorhexidine 15 ML PO ×2 (07:53→20:46)
[2025-07-12] MEDS: Pantoprazole Sodium 40 MG in 0.9% Normal Saline (100mL MB+) 100 ML 300 MG IV (07:53)
[2025-07-12] MEDS: 0.9% Saline Lock 10 ML Syringe IV ×2 (07:54→20:58)
--- NOTE | 2025-07-12 09:38 | PCM.PN.TICU ---
Objective Data Objective Data Vital Signs: Vital Signs Last response Temperature 37.8 C H 07/12/25 08:00 Temperature Source Core 07/12/25 08:00 Pulse Rate 110 H 07/12/25 09:25 Pulse Strength Weak (1+) 07/11/25 22:00 Respiratory Rate 16 07/12/25 09:25 Respiratory Effort Normal, Non-Labored, Mechanically Ventilated 07/12/25 08:00 Respiratory Depth Normal 07/12/25 08:00 Respiratory Pattern Normal 07/12/25 09:25 Blood Pressure 108/73 07/12/25 08:45 Blood Pressure Mean 84 07/12/25 08:45 Blood Pressure Source Monitor 07/12/25 08:45 Blood Pressure Position Semi-Fowlers 07/12/25 08:00 Blood Pressure Location Left Arm 07/12/25 08:00 Pulse Ox 97 07/12/25 09:25 Oxygen Delivery Method Mechanical Ventilator 07/12/25 08:00 Oxygen Flow Rate (L/min) 100 07/07/25 04:00 Fraction of Inspired Oxygen (FIO2) 50 07/12/25 08:00 I&O: I&O Last 24 Hours 07/11/25 07/11/25 07/12/25 11:59 23:59 11:59 Intake Total 2334.32 / 3426.26 1050.23 / 3426.26 1002.94 / 1002.94 Output Total 550 / 1495 820 / 1495 517 / 517 Balance 1784.32 / 1931.26 230.23 / 1931.26 485.94 / 485.94 I&O: Total Stay 07/06/25 10:37 thru 07/12/25 08:45 Intake Total 82068.49 Output Total 9130 Balance 6437.49 Current Meds Ordered / Administered: Current meds ordered / Administered Generic Name Dose Route Start Last Admin Trade Name Freq PRN Reason Stop Dose Admin Acetaminophen 650 mg 07/07/25 08:24 07/09/25 14:05 Acetaminophen 650 Mg/20 Ml Udc GT 650 mg Q4H PRN PRN Administration Fever, pain 1-05/22 Al Hydroxide/Mg Hydroxide 30 ml 07/07/25 08:23 Mag Hydrox/Al Hydrox/Simeth 30 Ml Udc GT Q6H PRN PRN Gastric Burning Albuterol Sulfate 2.5 mg 07/06/25 15:03 Albuterol 2.5 Mg/3 Ml Vial.Neb. INHALATION Q2H PRN PRN Dyspnea, wheezing Albuterol/Ipratropium 3 ml 07/06/25 15:03 07/12/25 06:30 Ipratropium/Albuterol Sulfate 3 Ml Ampul.Neb INHALATION 3 ml Q4HWA.RT DANIELA Administration Chlorhexidine Gluconate 15 ml 07/07/25 22:00 07/12/25 07:53 Chlorhexidine 15 Ml PO 15 ml BID DANIELA Administration Chlorhexidine Gluconate 1 each 07/08/25 10:00 07/12/25 07:52 Chlorhexidine Gluc 2% Cloth 1 Each [place] TOPICAL 1 each DAILY DANIELA Administration Furosemide 40 mg 07/12/25 09:37 Furosemide 40 Mg/4 Ml Vial IV 07/12/25 09:38 X1 ONE Protocol Guaifenesin 10 ml 07/07/25 08:23 Guaifenesin 10 Ml Udc (200mg/10ml) GT Q4H PRN PRN COUGH Hydralazine HCl 10 mg 07/06/25 15:03 Hydralazine 20 Mg/Ml Vial IV Q4H PRN PRN SBP > 160 Protocol Piperacillin Sod/Tazobactam 50 mls @ 12.5 mls/hr 07/06/25 22:00 07/12/25 05:40 Sod 3.375 gm/ Sodium Chloride IV 12.5 mls/hr Q8 DANIELA Administration Vancomycin IV-PHARMACY TO DOSE 500 mls @ 250 mls/hr 07/06/25 15:03 1 each/ Sodium Chloride IV X1 PRN Rx to Dose Protocol Vancomycin HCl 1,000 mg/ 270 mls @ 250 mls/hr 07/07/25 04:00 07/12/25 05:36 Sodium Chloride IV Infused Q12H DANIELA Infusion Sodium Chloride 250 mls @ 15 mls/hr 07/06/25 21:20 07/09/25 16:29 IV 0 mls/hr .[id number] PRN Infusion Saline Flush Sodium Chloride 250 mls @ 15 mls/hr 07/06/25 21:20 07/09/25 08:01 IV Infused .[id number] PRN Infusion Additional IVPB Infusion Fentanyl 100 mls @ 5 mls/hr 07/07/25 07:40 07/12/25 08:03 CONT INF 175 mcg/hr UD DANIELA 17.5 mls/hr Protocol Administration 50 MCG/HR Norepinephrine Bitartrate 8 mg 250 mls @ 9.375 mls/hr 07/07/25 08:40 07/12/25 08:45 / Sodium Chloride CONT INF 4 mcg/min .[id number] DANIELA 7.5 mls/hr Protocol Titration 5 MCG/MIN Pantoprazole Sodium 40 mg/ 100 mls @ 300 mls/hr 07/07/25 10:30 07/12/25 08:38 Sodium Chloride IV Infused Q24 DANIELA Infusion Enteral Nutritional Formula 1,000 mls @ 55 mls/hr 07/08/25 09:45 07/12/25 04:03 Vital Af 1.2 John Liquid GT Not Given .[id number] DANIELA Propofol 1,000 mg in 100 mls @ 3.786 mls/hr 07/09/25 05:35 07/12/25 08:00 Diprivan CONT INF 45 mcg/kg/min .Q12H DANIELA 17 mls/hr Protocol Titration 10 MCG/KG/MIN Amiodarone HCl 360 mg/ 200 mls @ 16.667 mls/hr 07/11/25 02:30 07/12/25 08:00 Dextrose CONT INF 0.5 mg/min .Q12H DANIELA 16.7 mls/hr 0.5 MG/MIN Infusion Loperamide HCl 2 mg 07/07/25 08:23 Loperamide 2 Mg Capsule GT Q4H PRN PRN DIARRHEA Melatonin 3 mg 07/07/25 08:23 Melatonin 3 Mg Tablet GT QHS PRN PRN INSOMNIA Methylprednisolone Sodium Succinate 40 mg 07/11/25 14:00 07/12/25 05:40 Methylprednisolone Sod Succ 40 Mg/Ml Vial IV 40 mg Q8 DANIELA Administration Metoclopramide HCl 5 mg 07/11/25 14:00 07/12/25 05:40 Metoclopramide 10 Mg/2 Ml Vial IV 5 mg Q8 DANIELA Administration Midazolam HCl 2 mg 07/11/25 10:09 Midazolam 2 Mg/2 Ml Syringe IV Q2H PRN PRN AGITATION Ondansetron HCl 4 mg 07/06/25 15:03 Ondansetron 4 Mg/2 Ml Vial IV Q8H PRN PRN NAUSEA/VOMITING Senna/Docusate Sodium 2 tablet 07/09/25 22:00 07/12/25 07:54 Senna/Docusate Sodium 1 Tablet GT Not Given BID DANIELA Sodium Chloride 10 - 40 ml 07/06/25 16:07 07/12/25 07:54 0.9% Saline Lock 10 Ml Syringe IV 10 ml UD PRN Administration SALINE FLUSH Sodium Chloride 10 - 40 ml 07/06/25 21:20 0.9% Saline Lock 10 Ml Syringe IV UD PRN SALINE FLUSH Vancomycin Protocol 1 lab 07/16/25 02:30 Vancomycin Trough/Random Due MC 07/16/25 04:30 DAILY DANIELA Lab / Micro Data 07/12/25 04:20 07/12/25 04:20 Labs: Laboratory Results - last 24 hr 07/12/25 03:30: Vancomycin Trough 18.4 H 07/12/25 04:20: WBC 18.5 H, RBC 3.86 L, Hgb 11.8 L, Hct 37.0, MCV 95.9, MCH 30.6, MCHC 31.9 L, RDW Std Deviation 53.3 H, RDW Coeff of Hilda 15.2 H, Plt Count 387, MPV 10.3, Immature Gran % (Auto) 0.800, Neut % (Auto) 91.7 H, Lymph % (Auto) 5.1 L, Wilkinson % (Auto) 2.3, Eos % (Auto) 0.0, Baso % (Auto) 0.1, Absolute Neuts (auto) 17.0 H, Absolute Lymphs (auto) 0.95, Nucleated RBC % 0, Sodium 144, Potassium 4.6, Chloride 109 H, Carbon Dioxide 27.3, Anion Gap 8, BUN 35 H, Creatinine 0.59 L, Estim Creat Clear Calc 52.51, Est GFR (MDRD) Non-Af 91, BUN/Creatinine Ratio 58.8 H, Glucose 204 H, Calcium 7.8 Micro: Microbiology 07/06/25 11:55 Blood Culture (Wb) - Left Wrist Blood Culture - Final No growth in 5 days. 07/06/25 11:59 Blood Culture (Wb) - Right Hand Blood Culture - Final No growth in 5 days. ABG Data ABG results: ABG 07/12/25 03:49 Specimen Type ART Sample Site R Radial pH 7.38 Bicarbonate Actual 31.4 H Total CO2 33 Base Excess 6 H O2 Saturation 87 L O2 % 40.0 ABG pCO2 53.4 H ABG pO2 55 L Herve Test Positive Respiration Rate 16 O2 Delivery Device Adult Vent Vent Mode PRVC Tidal Volume 375.0 POC PEEP 5 Clinical Comments Imaging Radiology Impression Chest X-Ray 07/11/25 12:00 IMPRESSION: Redemonstrated right pneumothorax which appears slightly decreased in size. Reading Location: [id number] X-Ray 07/11/25 12:00 IMPRESSION: NG tube in place. No acute abnormality noted. If concern persists, consider CT. [facility] Chest X-Ray 07/11/25 13:00 IMPRESSION: Stable positioning of supportive apparatus. Trace right apical pneumothorax can still be visualized on the x-ray, mildly decreased in size versus stable given mild differences in projection. Reading Location: [facility] Chest X-Ray 07/11/25 13:10 IMPRESSION: Stable supportive apparatus. Chest tube in unchanged position. Redemonstrated trace right pneumothorax which appears slightly decreased in size. There are stable bilateral lower and mid lung airspace disease. Reading Location: [facility] Chest X-Ray 07/12/25 04:10 IMPRESSION: Right apical pneumothorax not well visualized. Scattered bilateral airspace opacities Reading [facility] Assessment and Plan . Assessment and plan: 1. ARDS: prolonged resp illess (approx 3 weeks). Intubated 07/07 with worsening infiltrates. Bronch unrevealing for viral/bacterial pathogens. Cell Count neutrophilic. AC 16/375/50/5. Wean FIO2 as tolerated. Liberate VTs this week. 2. Sedation: on fent and propofol. RASS: -3 at current. Prn versed ordered 3. Pneumonia: Prolonged hospital course. Initial imaging appeared to be c/w pneumonia: basilar consolidation/GGO. Worse after initial admit and intubated 07/07. Cultures unrevealing. On Vanc/zosyn(day 6). Viral studies unrevealing. ? post infectious organizing pneumonia--> Steroids ordered 07/11(BAL not lymphocytic). 4. PTX: Appreciate surgery. s/p [address] CXR better. Small air leak noted. Continue suction. 5. Shock: Suspect sedation effect. Levophed req better: 4mcg. will follow 6. Fever: Low grade. On broad empiric antibxs. Re- culture today. 7. Afib: complicated by RVR. On amio gtt. Rate controlled at current. 8. FEN: High residuals 07/11. Better today. On reglan. Re-start trickle TFs 9. Intermittent diuresis: + 6.5 L during admit. Lasix ordered for 1 dose. 10. PX: Chemical 11. DNR Kevin Cruz MD cc time 50 minutes entire encounter done via telemedicine Physical Exam Narrative intubated, sedated pupils:= ETT in place CV: irreg, irreg Chest: = BS, Coarse Abd: soft, nt, +bs Ext: no c/e/c Skin: no rashes Neuro: sedated Subjective Subjective s/p CT by surgery. Stable overnight
[2025-07-12] MEDS: Vital AF 1.2 Cal Liquid 1,000 ML 20 ML GT (10:08)
[2025-07-12] MEDS: Propofol 10MG/Ml 1,000 MG/100 ML Bottle 13.3 MG CONT INF (21:21)
[2025-07-13] VITALS (46 sets, daily range): BP systolic 103–163; BP diastolic 09–136; PULSE 90–156; RESP 14–24; TEMP 37.3–38.1; O2SAT 89–99; BMI 22.1
[2025-07-13] MEDS: fentaNYL drip 100 ML 17.5 MCG CONT INF ×2 (00:38→06:32)
[2025-07-13] MEDS: CHLORHEXIDINE GLUC 2% CLOTH 1 EACH TOWELETTE TOPICAL (03:35)
[2025-07-13] MEDS: Vancomycin HCl 1,000 MG in 0.9% Normal Saline (250mL Bag) 250 ML 250 MG IV (03:35)
[2025-07-13 03:51] LABS: Allen Test Positive; Base Excess 8 mmol/L (-2 to +2); FI02 45.0; PEEP 5; PO2 82 mmHG (75-100); RR 16; SITE L Radial; SO2 96 % (94-98)
[2025-07-13] MEDS: Propofol 10MG/Ml 1,000 MG/100 ML Bottle 13.3 MG CONT INF (04:14)
[2025-07-13] MEDS: Piperacil/Tazobactam 3.375 GM in 0.9% Normal Saline (50mL MB+) 50 ML IV (05:27)
--- NOTE | 2025-07-13 05:40 | RAD_ITS ---
PROCEDURE: CHEST 1 VIEW (PORTABLE) 07/13/2025 REASON FOR EXAM: PTX TECHNIQUE: Frontal view of the chest. COMPARISON: 07/12/2025. FINDINGS: Endotracheal tube is in good position. Enteric feeding tube is in good position with its tip extending below the level of the left hemidiaphragm. Right internal jugular central catheter is in good position. Right thoracostomy pleural drainage catheter is in good position. Increased pulmonary congestion. Increased bilateral basilar/perihilar airspace disease of the lungs. Suspected mild left pleural effusion. Unchanged chronic deformity of the right ribs. Normal heart and pericardium. Normal mediastinum and toni. Normal visualized pulmonary arteries. Normal visualized aortic arch and descending thoracic aorta. Normal visualized thoracic spine. Normal remaining visualized ribs, clavicles, and shoulders. There is no demonstrated abnormality of the visualized soft tissue structures of the upper abdomen. RAD/Chest 1 View (Portable) IMPRESSION: Endotracheal tube is in good position. Enteric feeding tube is in good position with its tip extending below the level of the left hemidiaphragm. Right internal jugular central catheter is in good position. Right thoracostomy pleural drainage catheter is in good position. Increased pulmonary congestion. Increased bilateral basilar/perihilar airspace disease of the lungs. Suspected mild left pleural effusion. Unchanged chronic deformity of the right ribs. Pneumothorax is not well-visualized. [facility]
[2025-07-13] MEDS: 0.9% Saline Lock 10 ML Syringe IV (05:41)
[2025-07-13] MEDS: TITRATION PARAMETER CHANGE 1 EACH IV (06:37)
--- NOTE | 2025-07-13 07:19 | PN.HOSP_ITS ---
Reason for Visit Chief Complaint: Dyspnea, orthopnea. Objective Data Objective Data Vital Signs: Vital Signs Temp Pulse Resp BP Pulse Ox O2 Del Method O2 Flow Rate 99.3 F H 94 16 104/67 93 Mechanical Ventilator 100 07/13/25 07:00 07/13/25 07:00 07/13/25 07:00 07/13/25 07:00 07/13/25 07:00 07/13/25 07:00 07/07/25 04:00 FiO2 40 07/13/25 07:00 Oxygen Flow Rate (L/min) 100 Oxygen Delivery Method Mechanical Ventilator Weight: 64.1 kg Body Mass Index (BMI) 22.1 Intake & Output: Intake and Output for Last 24 Hours 07/11/25 07/12/25 07/13/25 23:59 23:59 23:59 Intake Total 3384.55 / 3426.26 2833.92 / 2866.12 759.92 / 759.92 Output Total 1370 / 1495 2087 / 2287 382 / 382 Balance 2014.55 / 1931.26 746.92 / 579.12 377.92 / 377.92 Lab / Micro Data 07/12/25 04:20 07/12/25 04:20 Micro: Microbiology 07/06/25 11:55 Blood Culture (Wb) - Left Wrist Blood Culture - Final No growth in 5 days. 07/06/25 11:59 Blood Culture (Wb) - Right Hand Blood Culture - Final No growth in 5 days. 07/07/25 08:35 Sputum, Induced/Lukens Gram Stain - Final 07/07/25 08:35 Sputum, Induced/Lukens Respiratory Culture - Final Culture exhibits no growth. 07/07/25 11:01 Bronchial Lavage - Bronchial Gram Stain - Final 07/07/25 11:01 Bronchial Lavage - Bronchial Respiratory Culture - Final Culture exhibits no growth. 07/06/25 15:12 Mucosa - Nasopharyngeal Respiratory Panel (PCR) - Final 07/06/25 16:10 Nasal Secretion MRSA (PCR) - Final 07/06/25 15:12 Mucosa - Nasopharyngeal Coronavirus COVID-19 PCR - Final 07/06/25 11:46 Urine Catheter - High Streptococcus pneumoniae Antigen (M - Final 07/06/25 11:46 Urine Catheter - High Legionella Antigen - Final ABG Data ABG results: ABG 07/13/25 03:48 Specimen Type ART Sample Site L Radial pH 7.38 Bicarbonate Actual 32.8 H Total CO2 35 Base Excess 8 H O2 Saturation 96 O2 % 45.0 ABG pCO2 55.4 H ABG pO2 82 Herve Test Positive Respiration Rate 16 O2 Delivery Device Adult Vent Vent Mode PRVC Tidal Volume 375.0 POC PEEP 5 Radiography Diagnostic Testing: Radiology Impression Chest X-Ray 07/13/25 05:40 IMPRESSION: Endotracheal tube is in good position. Enteric feeding tube is in good position with its tip extending below the level of the left hemidiaphragm. Right internal jugular central catheter is in good position. Right thoracostomy pleural drainage catheter is in good position. Increased pulmonary congestion. Increased bilateral basilar/perihilar airspace disease of the lungs. Suspected mild left pleural effusion. Unchanged chronic deformity of the right ribs. Pneumothorax is not well-visualized. Reading Location: [place] [id number] Physical Exam Narrative GENERAL: On the vent sedated HEENT: Atraumatic; normocephalic, ET tube EYES; Anicteric, Normal Conjunctiva NECK; supple, normal thyroid, RESPIRATORY: Diminished to auscultation, chest tube on the right side CARDIOVASCULAR: Regular S1 S2, GI: soft, normoactive bowel sounds, : No Renal angle tenderness; EXTREMITIES: No edema, no clubbing, MUSCULOSKELETAL: no muscle wasting NEURO: Unable to assess patient on the vent SKIN: No Rash PSYCH; unable to assess Assessment & Plan Assessment/Plan (1) Acute respiratory failure with hypoxia: PLAN: Plan Patient is an 80-year-old female who was admitted from the transitional care unit with hypoxia. An assessment of pneumonia with ARDS was made patient was admitted to the intensive care unit placed on noninvasive ventilation BiPAP 1. Acute hypoxic respiratory failure ? Secondary to pneumonia with ARDS admitted to the intensive care unit. Patient was placed on noninvasive ventilation BiPAP case was apparently discussed with patient regarding her CODE STATUS she is agreeable to brief trial of intubation. Consult placed to semiconductor wafers tester.. Patient clinical condition deteriorated resulting in patient being intubated. Case was discussed with Dr. Browning with intensive care ? 07/08/2025; patient underwent bronchoscopy the day prior findings as below Bilateral infiltrate, The airway examination of the left lung was normal. Scant, mucoid secretions were found in the right mainstem bronchus. Bronchoalveolar lavage was performed.. Patient WBC count remains elevated. Patient remains on the vent. Vent adjustment deferred to semiconductor wafers tester ? 07/09/2025; patient remains on the vent and as stated below patient did develop right-sided pneumothorax, subsequent imaging studies ordered ? 07/10/2025; Patient remains on the vent chest x-ray this morning did show interval slight improvement of right pneumothorax now measuring approximately 1.2 cm in depth, previously 1.5 cm. Otherwise, grossly unchanged lung findings. ? 07/12/2025; patient remains on the vent underwent right thoracostomy tube placement by Dr. Zuleta the day prior. ? 07/13/2025; patient remains on the vent. Oxygen requirements improving. 2. Pneumonia with suspected gram-negative organisms ? Patient presented with respiratory failure described above placed on broad- spectrum antibiotic therapy cultures sent ? 07/09/2025; patient remains on the vent cultures sent following patient bronchoscopy still pending 3. Septic shock ? Secondary to pneumonia patient had to be started on norepinephrine in addition to hydrocortisone. Remains on broad-spectrum antibiotic therapy with piperacillin/tazobactam as well as vancomycin ? 07/09/2025; patient on epinephrine on hold 4. Right-sided pneumothorax ?Chest x-ray obtained on 06/08/2025 did show Interval development of a right- sided pneumothorax. Chest tube was subsequently placed by Dr. Browning with intensive care ? 07/10/2025; Patient remains on the vent chest x-ray this morning did show interval slight improvement of right pneumothorax now measuring approximately 1.2 cm in depth, previously 1.5 cm. Otherwise, grossly unchanged lung findings.. Patient apparently has an air leak plan is to manage conservatively ? 07/11/2025;Patient chest x-ray did demonstrate mild increase in the moderate right-sided hemothorax. Right thoracostomy pleural drainage catheter was reported to be in good position. There is unchanged multifocal airspace disease. Patient being managed with chest tube to wall suction as well as minimal PEEP as much as tolerated. Plan is to repeat chest x-ray later today and if there is further increase we will consult general surgery for surgical chest tube 07/12/2025; Patient underwent right thoracostomy tube placement by Dr. Zuleta the day prior. Subsequent imaging studies demonstrated significant reduction in patient's pneumothorax ? 07/13/2021; chest x-ray this a.m. mention nonvisualization of pneumothorax. 5. Paroxysmal A-fib ? Patient is on amiodarone as well as systemic anticoagulation with apixaban ? 07/09/2025; patient amiodarone has been discontinued 6. Anemia ? Secondary to chronic disorder monitoring H&H and transfuse if patient becomes symptomatic or hemoglobin falls below 7 ? 07/09/2025; patient hemoglobin level down to 10.9, was 13.1 on 07/01/2025. Will continue with monitoring with daily CBC with differential 7. Mild leukocytosis ? Secondary to patient underlying infection plan is to treat underlying clinical etiology 8. Essential hypertension ? Patient is on lisinopril held following patient intubated 9. Hypokalemia -Corrected per protocol, repeat potassium level ordered in a.m. 10. DVT prophylaxis ? Patient is on apixaban Time spent in the patient's overall evaluation,decision-making process, review of diagnostic data, adjustment of management, discussion with other providers, nursing nursing and ancillary staff involved in patient's care documentation, 38 Minutes Charges/Coding Visit Charges Inpatient E&M: 18060 Subs Hosp L2
--- NOTE | 2025-07-13 07:25 | PCM.PN.INT ---
Assessment & Plan Assessment/Plan (1) Acute respiratory failure with hypoxia: (2) ARDS (adult respiratory distress syndrome): PLAN: Plan RECOMMENDATIONS: 1. Continue to wean FiO2 and PEEP to maintain saturations at or above 90%. 2. Begin spontaneous awakening and breathing trials. 3. Continue empiric antimicrobials and corticosteroids. 4. Continue chest tube to wall suction. 5. Continue propofol and fentanyl for sedation. 6. Continue tube feeding for nutritional support. 7. Continue appropriate ICU prophylaxis. IMPRESSIONS: 1. Acute hypoxemic respiratory failure/ARDS The patient was just admitted to the hospital and treated for severe community-acquired pneumonia with antimicrobials and corticosteroids. She was ultimately discharged to the transitional care unit on July 02 and was readmitted on July 07 with worsening shortness of breath. Her chest imaging continues to show diffuse bilateral infiltrates, not fully explained by a cardiac etiology, with a PF ratio less than 100, consistent with ARDS. While an underlying infectious process is still a possibility, other potential etiologies include diffuse alveolar hemorrhage, AIP, eosinophilic pneumonia and possibly cryptogenic organizing pneumonia. Autoimmune serologies were checked and found to be negative. Bronchoscopy was performed on July 07, with cultures unrevealing to date. COVID, influenza and RSV PCR's were negative. Eosinophilia was not noted on the cell count from the BAL. It is certainly plausible, given the patient's trajectory and onset of symptoms, that she has underlying AIP. However, she is too clinically unstable to perform any type of lung biopsy. The patient will be continued on empiric broad-spectrum antimicrobials, despite negative infectious workup to date, along with corticosteroids. Recommend continuation of propofol and fentanyl for sedation. Appropriate ICU prophylaxis will be continued. Tube feeding will be continued for nutritional support. Recommend proceeding with daily spontaneous awakening and breathing trials, as tolerated. 2. Spontaneous pneumothorax The patient developed a spontaneous pneumothorax on July 09, which required chest tube placement. Recommend continuing chest tube to wall suction. 3. History of paroxysmal atrial fibrillation/anxiety/hypertension Complicates care, management, recovery and prognosis. Continue supportive measures as noted above. CODE STATUS: DNR CCA with intubation. CODE STATUS was discussed with the patient along with plan for care prior to intubation. The patient did indicate that she would not want to proceed with tracheostomy if she was unable to be weaned from invasive mechanical ventilatory support. TIME: 33 minutes of critical care time, independent of procedures, was spent addressing the patient's acute hypoxemic respiratory failure/ARDS, spontaneous pneumothorax, review of all data and collaboration with the care team. Subjective Subjective The patient was seen and examined at the bedside this morning. Events from the last 24 hours have been reviewed. The patient currently has a low-grade fever, but remains otherwise hemodynamically stable on assist-control mode of mechanical ventilation with an FiO2 requirement of 40% and PEEP of 5. The patient is currently sedated on propofol and fentanyl. She has been tolerant of tube feedings. White blood cell count has improved to 13,000. Hemoglobin and platelet count are stable. Objective Data Objective Data The patient's most recent lab work, culture data and imaging studies have all been personally reviewed. Surface echocardiogram revealed normal LV size and function with an ejection fraction of 65%. Respiratory viral panel was negative. COVID PCR was negative. Bronchial washing cultures have not demonstrated any growth to date. Vital Signs: Vital Signs Temp Pulse Resp BP Pulse Ox O2 Del Method O2 Flow Rate 99.3 F H 94 16 104/67 93 Mechanical Ventilator 100 07/13/25 07:00 07/13/25 07:00 07/13/25 07:00 07/13/25 07:00 07/13/25 07:00 07/13/25 07:00 07/07/25 04:00 FiO2 40 07/13/25 07:00 Oxygen Flow Rate (L/min) 100 Oxygen Delivery Method Mechanical Ventilator Weight: 141 lb 5.061 oz Body Mass Index (BMI) 22.1 Intake & Output: Intake and Output for Last 24 Hours 07/11/25 07/12/25 07/13/25 23:59 23:59 23:59 Intake Total 3384.55 / 3426.26 2833.92 / 2866.12 759.92 / 759.92 Output Total 1370 / 1495 2087 / 2287 382 / 382 Balance 2014.55 / 1931.26 746.92 / 579.12 377.92 / 377.92 Lab / Micro Data Attestation: I reviewed the patient's lab results. 07/13/25 08:15 07/12/25 04:20 Labs: Laboratory Results - last 24 hr 07/09/25 03:25: Total Creatine Kinase 64, Triglycerides 147 07/10/25 03:32: WBC 11.4 H, RBC 3.51 L, Hgb 10.6 L, Hct 33.4 L, MCV 95.2, MCH 30.2, MCHC 31.7 L, RDW Std Deviation 50.9 H, RDW Coeff of Hilda 14.6, Plt Count 252, MPV 9.9, Immature Gran % (Auto) 0.900, Neut % (Auto) 91.1 H, Lymph % (Auto) 6.0 L, [place] % (Auto) 1.9, Eos % (Auto) 0.0, Baso % (Auto) 0.1, Absolute Neuts (auto) 10.4 H, Absolute Lymphs (auto) 0.68 L, Nucleated RBC % 0, Sodium 145, Potassium 3.1 L, Chloride 109 H, Carbon Dioxide 29.1, Anion Gap 7, BUN 31 H, Creatinine 0.51 L, Estim Creat Clear Calc 52.51, Est GFR (MDRD) Non-Af 94, BUN/Creatinine Ratio 60.8 H, Glucose 197 H, Calcium 8.0, Vancomycin Trough 14.9 Micro: Microbiology 07/06/25 11:55 Blood Culture (Wb) - Left Wrist Blood Culture - Final No growth in 5 days. 07/06/25 11:59 Blood Culture (Wb) - Right Hand Blood Culture - Final No growth in 5 days. 07/07/25 08:35 Sputum, Induced/Lukens Gram Stain - Final 07/07/25 08:35 Sputum, Induced/Lukens Respiratory Culture - Final Culture exhibits no growth. 07/07/25 11:01 Bronchial Lavage - Bronchial Gram Stain - Final 07/07/25 11:01 Bronchial Lavage - Bronchial Respiratory Culture - Final Culture exhibits no growth. 07/06/25 15:12 Mucosa - Nasopharyngeal Respiratory Panel (PCR) - Final 07/06/25 16:10 Nasal Secretion MRSA (PCR) - Final 07/06/25 15:12 Mucosa - Nasopharyngeal Coronavirus COVID-19 PCR - Final 07/06/25 11:46 Urine Catheter - High Streptococcus pneumoniae Antigen (M - Final 07/06/25 11:46 Urine Catheter - High Legionella Antigen - Final ABG Data ABG results: ABG 07/13/25 03:48 Specimen Type ART Sample Site L Radial pH 7.38 Bicarbonate Actual 32.8 H Total CO2 35 Base Excess 8 H O2 Saturation 96 O2 % 45.0 ABG pCO2 55.4 H ABG pO2 82 Herve Test Positive Respiration Rate 16 O2 Delivery Device Adult Vent Vent Mode PRVC Tidal Volume 375.0 POC PEEP 5 Radiography Diagnostic Testing: Radiology Impression Chest X-Ray 07/13/25 05:40 IMPRESSION: Endotracheal tube is in good position. Enteric feeding tube is in good position with its tip extending below the level of the left hemidiaphragm. Right internal jugular central catheter is in good position. Right thoracostomy pleural drainage catheter is in good position. Increased pulmonary congestion. Increased bilateral basilar/perihilar airspace disease of the lungs. Suspected mild left pleural effusion. Unchanged chronic deformity of the right ribs. Pneumothorax is not well-visualized. Reading Location: [place] [address] Physical Exam Const Constitutional Narrative: Intubated, sedated and mechanically ventilated. No ventilator dyssynchrony noted. General Appearance: ill appearing and patient mechanically ventilated HEENT normocephalic and head/scalp atraumatic Mouth: endotracheal tube in place and OG tube in place Eyes PERRL, EOMs intact bilaterally and conjunctivae normal Neck supple General: trachea midline and CVC in place Chest inspection of chest normal Resp Resp Narrative: Right-sided chest tube in place with small airleak still noted in the Pleur-evac. Auscultation: diminished lung sounds; Negative for rales, rhonchi or wheezes Cardio regular rate, regular rhythm, S1 normal heart sound and S2 normal heart sound GI normal to inspection, nondistended, normoactive bowel sounds Extremity no clubbing, cyanosis or edema Skin no rashes or lesions noted Neuro Sensorium / Orientation: sedated on vent Charges/Coding Procedures Hospitalists Procedures: 30064 Critical Care 1st Hr
[2025-07-13] MEDS: Pantoprazole Sodium 40 MG in 0.9% Normal Saline (100mL MB+) 100 ML 300 MG IV (08:29)
[2025-07-13] MEDS: Senna/Docusate Sodium 1 Tablet 2 TABLET GT ×2 (08:30→21:27)
[2025-07-13] MEDS: Chlorhexidine 15 ML PO ×2 (08:30→21:27)
[2025-07-13 08:32] LABS: Hematocrit 32.5 % (37-47); Hemoglobin 10.3 g/dL (12.0-15.0); Immature Granulocytes Count 0.110 X10^3/uL (0.0-0.0); Mean Corp Hgb Conc 31.7 g/dL (32-36); Mean Corpuscular Volume 96.2 fL (81-99); Mean Platelet Vol. 10.3 fl (6.2-12.0); NRBC Flagged by Analyzer 0 % (0-5); POSITIVE DIFFERENTIAL YES; Platelet Count 255 K/mm3 (150-450); RBC Distribution Width CV 15.1 % (11.6-14.6); RBC Distribution Width SD 52.8 fl (35.1-43.9); Red Blood Count 3.38 M/mm3 (4.2-5.4); White Blood Count 13.5 K/mm3 (4.4-11.0)
--- NOTE | 2025-07-13 08:49 | PN.SURG_ITS ---
Subjective Subjective Patient evaluated intubated and laying in bed. Per nursing, decreased air leak noted over night. Objective Data Objective Data Vital Signs: Vital Signs Temp Pulse Resp BP Pulse Ox O2 Del Method O2 Flow Rate 99.1 F 102 H 16 128/80 H 94 Mechanical Ventilator 100 07/13/25 08:00 07/13/25 08:00 07/13/25 08:00 07/13/25 08:00 07/13/25 08:00 07/13/25 08:00 07/07/25 04:00 FiO2 40 07/13/25 08:00 Oxygen Flow Rate (L/min) 100 Oxygen Delivery Method Mechanical Ventilator Weight: 141 lb 5.061 oz Body Mass Index (BMI) 22.1 Intake & Output: Intake and Output for Last 24 Hours 07/11/25 07/12/25 07/13/25 23:59 23:59 23:59 Intake Total 3384.55 / 3426.26 2833.92 / 2866.12 806.42 / 806.42 Output Total 1370 / 1495 2087 / 2287 382 / 382 Balance 2014.55 / 1931.26 746.92 / 579.12 424.42 / 424.42 Lab / Micro Data 07/13/25 08:15 07/13/25 08:15 Labs: Laboratory Results - last 24 hr 07/13/25 08:15: WBC 13.5 H, RBC 3.38 L, Hgb 10.3 L, Hct 32.5 L, MCV 96.2, MCH 30.5, MCHC 31.7 L, RDW Std Deviation 52.8 H, RDW Coeff of Hilda 15.1 H, Plt Count 255, MPV 10.3, Immature Gran % (Auto) 0.800, Neut % (Auto) 92.3 H, Lymph % (Auto) 4.2 L, [place] % (Auto) 2.7, Eos % (Auto) 0.0, Baso % (Auto) 0.0, Absolute Neuts (auto) 12.5 H, Absolute Lymphs (auto) 0.57 L, Nucleated RBC % 0 Micro: Microbiology 07/06/25 11:55 Blood Culture (Wb) - Left Wrist Blood Culture - Final No growth in 5 days. 07/06/25 11:59 Blood Culture (Wb) - Right Hand Blood Culture - Final No growth in 5 days. 07/07/25 08:35 Sputum, Induced/Lukens Gram Stain - Final 07/07/25 08:35 Sputum, Induced/Lukens Respiratory Culture - Final Culture exhibits no growth. 07/07/25 11:01 Bronchial Lavage - Bronchial Gram Stain - Final 07/07/25 11:01 Bronchial Lavage - Bronchial Respiratory Culture - Final Culture exhibits no growth. 07/06/25 15:12 Mucosa - Nasopharyngeal Respiratory Panel (PCR) - Final 07/06/25 16:10 Nasal Secretion MRSA (PCR) - Final 07/06/25 15:12 Mucosa - Nasopharyngeal Coronavirus COVID-19 PCR - Final 07/06/25 11:46 Urine Catheter - High Streptococcus pneumoniae Antigen (M - Final 07/06/25 11:46 Urine Catheter - High Legionella Antigen - Final ABG Data ABG results: ABG 07/13/25 03:48 Specimen Type ART Sample Site L Radial pH 7.38 Bicarbonate Actual 32.8 H Total CO2 35 Base Excess 8 H O2 Saturation 96 O2 % 45.0 ABG pCO2 55.4 H ABG pO2 82 Herve Test Positive Respiration Rate 16 O2 Delivery Device Adult Vent Vent Mode PRVC Tidal Volume 375.0 POC PEEP 5 Radiography Diagnostic Testing: Radiology Impression Chest X-Ray 07/13/25 05:40 IMPRESSION: Endotracheal tube is in good position. Enteric feeding tube is in good position with its tip extending below the level of the left hemidiaphragm. Right internal jugular central catheter is in good position. Right thoracostomy pleural drainage catheter is in good position. Increased pulmonary congestion. Increased bilateral basilar/perihilar airspace disease of the lungs. Suspected mild left pleural effusion. Unchanged chronic deformity of the right ribs. Pneumothorax is not well-visualized. Reading Location: [place] [address] Physical Exam Chest Chest Narrative: Right chest- chest tube intact. Small slow residual air leak noted in the canister. Assessment & Plan Assessment/Plan (1) Pneumothorax on right: PLAN: I am following this patient in conjunction with Dr. Zuleta. He has independently evaluated this patient CXR shows no residual right pneumothorax Suction at -20 cm on canister. Continue at this level. Will leave chest tube intact until after patient is extubated We will continue to monitor this patient Charges/Coding Visit Charges Inpatient E&M: 44995 Subs Hosp L2
[2025-07-13 08:54] LABS: Anion Gap 7 (5-15); BUN 39 mg/dL (4-19); BUN/Creat Ratio 71.2 RATIO (10-20); Calcium,Total 7.6 mg/dL (7.6-11.0); Carbon Dioxide 28.4 mmol/L (21.0-32.0); Chloride 109 mmol/L (98-108); Estimated Creatinine Clearance 52.51 ml/min (50-250); Glucose 266 mg/dL (70-99); Potassium 4.5 mmol/L (3.3-5.1)
--- NOTE | 2025-07-13 10:25 | CASEMGMT ---
KAT MCKEON contacted by Hospital Detention Officer and asked to contact Palliative OPERATOR MAINTAINER in regards to patient wishes that were made known prior to intubation and family wishes for trach placement. KAT MCKEON called and she will come to ICU unit.
--- NOTE | 2025-07-13 11:30 | WOUNDNOTE ---
wound photo: sacrum
[2025-07-13] MEDS: Amiodarone 360 MG in Dextrose 5% Viaflo Bag 192.8 ML 16.7 MG CONT INF ×2 (11:45→22:00)
[2025-07-13] MEDS: Propofol 10MG/Ml 1,000 MG/100 ML Bottle 7.7 MG CONT INF ×2 (11:46→21:34)
[2025-07-13] MEDS: fentaNYL drip 100 ML 12.5 MCG CONT INF ×2 (14:34→23:00)
--- NOTE | 2025-07-13 14:51 | CASEMGMT ---
Patient remains intubated and mechanically ventilated (vent day #7). Per hospitalist and deblocker, prior to intubation the patient had decision-making capacity and stated she wished to proceed with intubation but did not want PEG tube placement or trach. Patient?s son is the HCPOA. Per Pellet Mill Operator, spoke with son on phone today and is now considering requesting PEG and trach placement. Due to deblocker conversation with Patient regarding patient wishes prior to intubation, and son's consideration, KAT MCKEON looped in Director of risk management for continuity of care. Living Will and HCPOA documents are on file. Pellet Mill Operator plans to call the patient?s son on 07/15/2025, to determine goals of care for patient. At recommendation of Director of Risk, updated [place] for need for family support. Due to the complexity of the social dynamics, KAT MCKEON also looped in SW for assistance. CM will continue to follow for [id number] coordination with SW, medical team, POA, and Risk Management.
[2025-07-13] MEDS: Vital AF 1.2 Cal Liquid 1,000 ML 35 ML GT (16:20)
[2025-07-13] MEDS: Acetaminophen 650 MG/20 ML UDC GT (22:07)
[2025-07-14] VITALS (36 sets, daily range): BP systolic 93–183; BP diastolic 67–127; PULSE 97–152; RESP 16–27; TEMP 37.4–38.3; O2SAT 88–97; BMI 22.4
[2025-07-14] MEDS: CHLORHEXIDINE GLUC 2% CLOTH 1 EACH TOWELETTE TOPICAL (03:03)
--- NOTE | 2025-07-14 05:49 | PN.CC_ITS ---
Assessment & Plan Assessment/Plan (1) Acute respiratory failure with hypoxia: (2) ARDS (adult respiratory distress syndrome): PLAN: Plan RECOMMENDATIONS: 1. Continue to wean FiO2 and PEEP to maintain saturations at or above 90%. 2. Perform daily paired spontaneous awakening and breathing trials. 3. Wean IV Solu-Medrol to once daily. 4. Continue chest tube to wall suction. 5. Continue propofol and fentanyl for sedation. 6. Continue tube feeding for nutritional support. 7. Continue appropriate ICU prophylaxis. 8. Ongoing goals of care discussion with the patient's son. IMPRESSIONS: 1. Acute hypoxemic respiratory failure/ARDS The patient was just admitted to the hospital and treated for severe community- acquired pneumonia with antimicrobials and corticosteroids. She was ultimately discharged to the transitional care unit on July 02 and was readmitted on July 07 with worsening shortness of breath. Her chest imaging continues to show diffuse bilateral infiltrates, not fully explained by a cardiac etiology, with a PF ratio less than 100, consistent with ARDS. While an underlying infectious process is still a possibility, other potential etiologies include diffuse alveolar hemorrhage, AIP, eosinophilic pneumonia and possibly cryptogenic organizing pneumonia. Autoimmune serologies were checked and found to be negative. Bronchoscopy was performed on July 07, with cultures unrevealing to date. COVID, influenza and RSV PCR's were negative. Eosinophilia was not noted on the cell count from the BAL. It is certainly plausible, given the patient's trajectory and onset of symptoms, that she has underlying AIP. However, she is too clinically unstable to perform any type of lung biopsy. The patient has now completed a course of broad-spectrum antimicrobials. Will plan to decrease her corticosteroid dosing to once daily. Propofol and fentanyl will be continued for sedation. Appropriate ICU prophylaxis will be continued. Tube feeding will be continued for nutritional support. Recommend proceeding with daily spontaneous awakening and breathing trials, as tolerated. Will continue ongoing goals of care discussion with the patient's son. 2. Spontaneous pneumothorax The patient developed a spontaneous pneumothorax on July 09, which required chest tube placement. Recommend continuing chest tube to wall suction. 3. History of paroxysmal atrial fibrillation/anxiety/hypertension Complicates care, management, recovery and prognosis. Continue supportive measures as noted above. CODE STATUS: DNR CCA with intubation. CODE STATUS was discussed with the patient along with plan for care prior to intubation. The patient did indicate that she would not want to proceed with tracheostomy if she was unable to be weaned from invasive mechanical ventilatory support. TIME: 35 minutes of critical care time, independent of procedures, was spent addressing the patient's acute hypoxemic respiratory failure/ARDS, spontaneous pneumothorax, review of all data and collaboration with the care team. Subjective Subjective The patient was seen and examined at the bedside this morning. Events from the last 24 hours have been reviewed. The patient currently has a low-grade fever but remains otherwise hemodynamically stable on assist-control mode mechanical ventilation with an FiO2 requirement of 45% and PEEP of 5. The patient remains sedated on propofol and fentanyl. She has been tolerant of tube feeding. There was no air leak noted today in her Pleur-evac. White blood cell count has increased to 25,000. I did have a aleksander discussion with the patient's son yesterday regarding prognosis and goals of care, bearing in mind that the patient did express her wishes prior to intubation to avoid tracheostomy. Objective Data Objective Data The patient's most recent lab work, culture data and imaging studies have all been personally reviewed. Surface echocardiogram revealed normal LV size and function with an ejection fraction of 65%. Respiratory viral panel was negative. COVID PCR was negative. Bronchial washing cultures have not demonstrated any growth to date. Vital Signs: Vital Signs Temp Pulse Resp BP Pulse Ox O2 Del Method O2 Flow Rate 99.8 F H 135 H 18 168/111 H 92 Mechanical Ventilator 100 07/14/25 03:00 07/14/25 04:12 07/14/25 04:12 07/14/25 03:03 07/14/25 04:12 07/14/25 04:00 07/07/25 04:00 FiO2 45 07/14/25 04:00 Oxygen Flow Rate (L/min) 100 Oxygen Delivery Method Mechanical Ventilator Weight: 143 lb 4.807 oz Body Mass Index (BMI) 22.4 Intake & Output: Intake and Output for Last 24 Hours 07/12/25 07/13/25 07/14/25 23:59 23:59 23:59 Intake Total 2833.92 / 2866.12 2618.05 / 2688.25 180.80 / 180.80 Output Total 2087 / 2287 872 / 1222 350 / 350 Balance 746.92 / 579.12 1746.05 / 1466.25 -169.20 / -169.20 Lab / Micro Data Attestation: I reviewed the patient's lab results. 07/14/25 07:50 07/13/25 08:15 Labs: Laboratory Results - last 24 hr 07/13/25 08:15: WBC 13.5 H, RBC 3.38 L, Hgb 10.3 L, Hct 32.5 L, MCV 96.2, MCH 30.5, MCHC 31.7 L, RDW Std Deviation 52.8 H, RDW Coeff of Hilda 15.1 H, Plt Count 255, MPV 10.3, Immature Gran % (Auto) 0.800, Neut % (Auto) 92.3 H, Lymph % (Auto) 4.2 L, [place] % (Auto) 2.7, Eos % (Auto) 0.0, Baso % (Auto) 0.0, Absolute Neuts (auto) 12.5 H, Absolute Lymphs (auto) 0.57 L, Nucleated RBC % 0, Sodium 144, Potassium 4.5, Chloride 109 H, Carbon Dioxide 28.4, Anion Gap 7, BUN 39 H, Creatinine 0.54 L, Estim Creat Clear Calc 52.51, Est GFR (MDRD) Non-Af 93, B UN/Creatinine Ratio 71.2 H, Glucose 266 H, Calcium 7.6 Micro: Microbiology 07/06/25 11:55 Blood Culture (Wb) - Left Wrist Blood Culture - Final No growth in 5 days. 07/06/25 11:59 Blood Culture (Wb) - Right Hand Blood Culture - Final No growth in 5 days. 07/07/25 08:35 Sputum, Induced/Lukens Gram Stain - Final 07/07/25 08:35 Sputum, Induced/Lukens Respiratory Culture - Final Culture exhibits no growth. 07/07/25 11:01 Bronchial Lavage - Bronchial Gram Stain - Final 07/07/25 11:01 Bronchial Lavage - Bronchial Respiratory Culture - Final Culture exhibits no growth. 07/06/25 15:12 Mucosa - Nasopharyngeal Respiratory Panel (PCR) - Final 07/06/25 16:10 Nasal Secretion MRSA (PCR) - Final 07/06/25 15:12 Mucosa - Nasopharyngeal Coronavirus COVID-19 PCR - Final 07/06/25 11:46 Urine Catheter - High Streptococcus pneumoniae Antigen (M - Final 07/06/25 11:46 Urine Catheter - High Legionella Antigen - Final ABG Data ABG results: ABG 12/01/25 03:48 Specimen Type ART Sample Site L Radial pH 7.38 Bicarbonate Actual 32.8 H Total CO2 35 Base Excess 8 H O2 Saturation 96 O2 % 45.0 ABG pCO2 55.4 H ABG pO2 82 Herve Test Positive Respiration Rate 16 O2 Delivery Device Adult Vent Vent Mode PRVC Tidal Volume 375.0 POC PEEP 5 Radiography Diagnostic Testing: Radiology Impression Chest X-Ray 07/13/25 05:40 IMPRESSION: Endotracheal tube is in good position. Enteric feeding tube is in good position with its tip extending below the level of the left hemidiaphragm. Right internal jugular central catheter is in good position. Right thoracostomy pleural drainage catheter is in good position. Increased pulmonary congestion. Increased bilateral basilar/perihilar airspace disease of the lungs. Suspected mild left pleural effusion. Unchanged chronic deformity of the right ribs. Pneumothorax is not well-visualized. Reading Location: [place] [address] Chest X-Ray 07/14/25 05:55 IMPRESSION: Stable study with no definite pneumothorax at this time. If clinically warranted correlation with CT would be helpful Reading Location: [place] [address] Physical Exam Const Constitutional Narrative: Intubated, sedated and mechanically ventilated. No ventilator dyssynchrony noted. General Appearance: ill appearing and patient mechanically ventilated HEENT normocephalic and head/scalp atraumatic Mouth: endotracheal tube in place and OG tube in place Eyes PERRL, EOMs intact bilaterally and conjunctivae normal Neck supple General: trachea midline and CVC in place Chest inspection of chest normal Resp Resp Narrative: Right-sided chest tube in place without discernible airleak noted. Auscultation: diminished lung sounds; Negative for rales, rhonchi or wheezes Cardio regular rate, regular rhythm, S1 normal heart sound and S2 normal heart sound GI normal to inspection, nondistended, normoactive bowel sounds Extremity no clubbing, cyanosis or edema Skin no rashes or lesions noted Neuro Sensorium / Orientation: sedated on vent Charges/Coding Procedures Hospitalists Procedures: [id number] Critical Care 1st Hr
--- NOTE | 2025-07-14 05:55 | RAD_ITS ---
PROCEDURE: CHEST 1 VIEW (PORTABLE) 07/14/2025 REASON FOR EXAM: PTX TECHNIQUE: Frontal view of the chest. COMPARISON: 07/13/2025 FINDINGS: Stable appearing endotracheal tube in satisfactory placement. The stable appearing nasogastric tube is seen extending below the diaphragm. Stable appearing right chest tube ending in the right upper lung zone medially. No definite pneumothorax at this time. The stable cardiac size. Stable bilateral pulmonary patchy consolidation. Stable appearing left pleural effusion and minimal right pleural effusion. Stable right ribs healing fractures. RAD/Chest 1 View (Portable) IMPRESSION: Stable study with no definite pneumothorax at this time. If clinically warrant ed correlation with CT would be helpful Reading Location: [facility]
--- NOTE | 2025-07-14 06:49 | PCM.PN.SRG ---
Subjective Subjective Patient intubated resting in bed. No concerns per nursing staff over night. Objective Data Objective Data Vital Signs: Vital Signs Temp Pulse Resp BP Pulse Ox O2 Del Method O2 Flow Rate 99.8 F H 120 H 17 165/113 H 91 Mechanical Ventilator 100 07/14/25 04:00 07/14/25 06:00 07/14/25 06:00 07/14/25 06:00 07/14/25 06:00 07/14/25 06:00 07/07/25 04:00 FiO2 45 07/14/25 06:00 Oxygen Flow Rate (L/min) 100 Oxygen Delivery Method Mechanical Ventilator Weight: 143 lb 4.807 oz Body Mass Index (BMI) 22.4 Intake & Output: Intake and Output for Last 24 Hours 07/12/25 07/13/25 07/14/25 23:59 23:59 23:59 Intake Total 2833.92 / 2866.12 2618.05 / 2688.25 243.32 / 243.32 Output Total 2087 / 2287 872 / 1222 800 / 800 Balance 746.92 / 579.12 1746.05 / 1466.25 -556.68 / -556.68 Lab / Micro Data 07/13/25 08:15 07/13/25 08:15 Labs: Laboratory Results - last 24 hr 07/13/25 08:15: WBC 13.5 H, RBC 3.38 L, Hgb 10.3 L, Hct 32.5 L, MCV 96.2, MCH 30.5, MCHC 31.7 L, RDW Std Deviation 52.8 H, RDW Coeff of Hilda 15.1 H, Plt Count 255, MPV 10.3, Immature Gran % (Auto) 0.800, Neut % (Auto) 92.3 H, Lymph % (Auto) 4.2 L, [place] % (Auto) 2.7, Eos % (Auto) 0.0, Baso % (Auto) 0.0, Absolute Neuts (auto) 12.5 H, Absolute Lymphs (auto) 0.57 L, Nucleated RBC % 0, Sodium 144, Potassium 4.5, Chloride 109 H, Carbon Dioxide 28.4, Anion Gap 7, BUN 39 H, Creatinine 0.54 L, Estim Creat Clear Calc 52.51, Est GFR (MDRD) Non-Af 93, BUN/Creatinine Ratio 71.2 H, Glucose 266 H, Calcium 7.6 Micro: Microbiology 07/06/25 11:55 Blood Culture (Wb) - Left Wrist Blood Culture - Final No growth in 5 days. 07/06/25 11:59 Blood Culture (Wb) - Right Hand Blood Culture - Final No growth in 5 days. 07/07/25 08:35 Sputum, Induced/Lukens Gram Stain - Final 07/07/25 08:35 Sputum, Induced/Lukens Respiratory Culture - Final Culture exhibits no growth. 07/07/25 11:01 Bronchial Lavage - Bronchial Gram Stain - Final 07/07/25 11:01 Bronchial Lavage - Bronchial Respiratory Culture - Final Culture exhibits no growth. 07/06/25 15:12 Mucosa - Nasopharyngeal Respiratory Panel (PCR) - Final 07/06/25 16:10 Nasal Secretion MRSA (PCR) - Final 07/06/25 15:12 Mucosa - Nasopharyngeal Coronavirus COVID-19 PCR - Final 07/06/25 11:46 Urine Catheter - High Streptococcus pneumoniae Antigen (M - Final 07/06/25 11:46 Urine Catheter - High Legionella Antigen - Final Radiography Diagnostic Testing: Radiology Impression Chest X-Ray 07/14/25 05:55 IMPRESSION: Stable study with no definite pneumothorax at this time. If clinically warranted correlation with CT would be helpful Reading [facility] Physical Exam Chest Chest Narrative: Right lateral chest- chest tube intact. Canister on -20 cm suction. Very slow minimal leak Assessment & Plan Assessment/Plan (1) Pneumothorax on right: PLAN: I am following this patient in conjunction with Dr. Zuleta. He will independently evaluate this patient. CXR obtained this morning demonstrating no residual pneumothorax on the right Continue chest tube on -20 cm and wall suction until after extubated We will continue to monitor this patient Charges/Coding Visit Charges Inpatient E&M: 87752 Subs Hosp L2
[2025-07-14 08:03] LABS: Neutrophil (Segs) 71 %
--- NOTE | 2025-07-14 08:07 | PCM.PN.HOSP ---
Reason for Visit Chief Complaint: Dyspnea, orthopnea. Subjective Subjective Patient seen remains on the vent attempt at weaning unsuccessful. Checks x-ray this morning demonstrated no definitive pneumothorax at this point. Objective Data Objective Data Vital Signs: Vital Signs Temp Pulse Resp BP Pulse Ox O2 Del Method O2 Flow Rate 99.8 F H 131 H 18 151/103 H 92 Mechanical Ventilator 100 07/14/25 04:00 07/14/25 07:00 07/14/25 07:00 07/14/25 07:00 07/14/25 07:00 07/14/25 07:00 07/07/25 04:00 FiO2 45 07/14/25 07:00 Oxygen Flow Rate (L/min) 100 Oxygen Delivery Method Mechanical Ventilator Weight: 65 kg Body Mass Index (BMI) 22.4 Intake & Output: Intake and Output for Last 24 Hours 07/12/25 07/13/25 07/14/25 23:59 23:59 23:59 Intake Total 2833.92 / 2866.12 2618.05 / 2688.25 243.32 / 243.32 Output Total 2087 / 2287 872 / 1222 925 / 925 Balance 746.92 / 579.12 1746.05 / 1466.25 -681.68 / -681.68 Lab / Micro Data 07/14/25 07:50 07/14/25 07:50 Labs: Laboratory Results - last 24 hr 07/07/25 11:01: Fluid Neutrophils 71, Fluid Lymphocytes 6, Fluid Monocytes Not Reportable, Fluid Macrophages 23 07/13/25 08:15: WBC 13.5 H, RBC 3.38 L, Hgb 10.3 L, Hct 32.5 L, MCV 96.2, MCH 30.5, MCHC 31.7 L, RDW Std Deviation 52.8 H, RDW Coeff of Hilda 15.1 H, Plt Count 255, MPV 10.3, Immature Gran % (Auto) 0.800, Neut % (Auto) 92.3 H, Lymph % (Auto) 4.2 L, [place] % (Auto) 2.7, Eos % (Auto) 0.0, Baso % (Auto) 0.0, Absolute Neuts (auto) 12.5 H, Absolute Lymphs (auto) 0.57 L, Nucleated RBC % 0, Sodium 144, Potassium 4.5, Chloride 109 H, Carbon Dioxide 28.4, Anion Gap 7, BUN 39 H, Creatinine 0.54 L, Estim Creat Clear Calc 52.51, Est GFR (MDRD) Non-Af 93, BUN/Creatinine Ratio 71.2 H, Glucose 266 H, Calcium 7.6 Micro: Microbiology 07/06/25 11:55 Blood Culture (Wb) - Left Wrist Blood Culture - Final No growth in 5 days. 07/06/25 11:59 Blood Culture (Wb) - Right Hand Blood Culture - Final No growth in 5 days. 07/07/25 08:35 Sputum, Induced/Lukens Gram Stain - Final 07/07/25 08:35 Sputum, Induced/Lukens Respiratory Culture - Final Culture exhibits no growth. 07/07/25 11:01 Bronchial Lavage - Bronchial Gram Stain - Final 07/07/25 11:01 Bronchial Lavage - Bronchial Respiratory Culture - Final Culture exhibits no growth. 07/06/25 15:12 Mucosa - Nasopharyngeal Respiratory Panel (PCR) - Final 07/06/25 16:10 Nasal Secretion MRSA (PCR) - Final 07/06/25 15:12 Mucosa - Nasopharyngeal Coronavirus COVID-19 PCR - Final 07/06/25 11:46 Urine Catheter - High Streptococcus pneumoniae Antigen (M - Final 07/06/25 11:46 Urine Catheter - High Legionella Antigen - Final Radiography Diagnostic Testing: Radiology Impression Chest X-Ray 07/14/25 05:55 IMPRESSION: Stable study with no definite pneumothorax at this time. If clinically warranted correlation with CT would be helpful Reading Location: [place] [id number] Physical Exam Narrative GENERAL: On the vent sedated HEENT: Atraumatic; normocephalic, ET tube EYES; Anicteric, Normal Conjunctiva NECK; supple, normal thyroid, RESPIRATORY: Diminished to auscultation, chest tube on the right side CARDIOVASCULAR: Regular S1 S2, GI: soft, normoactive bowel sounds, : No Renal angle tenderness; EXTREMITIES: No edema, no clubbing, MUSCULOSKELETAL: no muscle wasting NEURO: Unable to assess patient on the vent SKIN: No Rash PSYCH; unable to assess Assessment & Plan Assessment/Plan (1) Acute respiratory failure with hypoxia: PLAN: Plan Patient is an 80-year-old female who was admitted from the transitional care unit with hypoxia. An assessment of pneumonia with ARDS was made patient was admitted to the intensive care unit placed on noninvasive ventilation BiPAP 1. Acute hypoxic respiratory failure ? Secondary to pneumonia with ARDS admitted to the intensive care unit. Patient was placed on noninvasive ventilation BiPAP case was apparently discussed with patient regarding her CODE STATUS she is agreeable to brief trial of intubation. Consult placed to healthcare market consultant.. Patient clinical condition deteriorated resulting in patient being intubated. Case was discussed with Dr. Browning with intensive care ? 07/08/2025; patient underwent bronchoscopy the day prior findings as below Bilateral infiltrate, The airway examination of the left lung was normal. Scant, mucoid secretions were found in the right mainstem bronchus. Bronchoalveolar lavage was performed.. Patient WBC count remains elevated. Patient remains on the vent. Vent adjustment deferred to healthcare market consultant ? 07/09/2025; patient remains on the vent and as stated below patient did develop right-sided pneumothorax, subsequent imaging studies ordered ? 07/10/2025; Patient remains on the vent chest x-ray this morning did show interval slight improvement of right pneumothorax now measuring approximately 1.2 cm in depth, previously 1.5 cm. Otherwise, grossly unchanged lung findings. ? 07/12/2025; patient remains on the vent underwent right thoracostomy tube placement by Dr. Zuleta the day prior. ? 07/13/2025; patient remains on the vent. Oxygen requirements improving. ? 07/14/2025; patient remains on the vent weaning trial this morning unsuccessful. Plan is for family meeting on 07/15/2025 regarding goals of care 2. Pneumonia with suspected gram-negative organisms ? Patient presented with respiratory failure described above placed on broad-spectrum antibiotic therapy cultures sent ? 07/09/2025; patient remains on the vent cultures sent following patient bronchoscopy still pending 3. Septic shock ? Secondary to pneumonia patient had to be started on norepinephrine in addition to hydrocortisone. Remains on broad-spectrum antibiotic therapy with piperacillin/tazobactam as well as vancomycin ? 07/09/2025; patient on epinephrine on hold 4. Right-sided pneumothorax ?Chest x-ray obtained on 06/08/2025 did show Interval development of a right-sided pneumothorax. Chest tube was subsequently placed by Dr. Browning with intensive care ? 07/10/2025; Patient remains on the vent chest x-ray this morning did show interval slight improvement of right pneumothorax now measuring approximately 1.2 cm in depth, previously 1.5 cm. Otherwise, grossly unchanged lung findings.. Patient apparently has an air leak plan is to manage conservatively ? 07/11/2025;Patient chest x-ray did demonstrate mild increase in the moderate right-sided hemothorax. Right thoracostomy pleural drainage catheter was reported to be in good position. There is unchanged multifocal airspace disease. Patient being managed with chest tube to wall suction as well as minimal PEEP as much as tolerated. Plan is to repeat chest x-ray later today and if there is further increase we will consult general surgery for surgical chest tube 07/12/2025; Patient underwent right thoracostomy tube placement by Dr. Zuleta the day prior. Subsequent imaging studies demonstrated significant reduction in patient's pneumothorax ? 07/13/2021; chest x-ray this a.m. mention nonvisualization of pneumothorax. ? 07/14/2025; pneumothorax resolved 5. Paroxysmal A-fib ? Patient is on amiodarone as well as systemic anticoagulation with apixaban ? 07/09/2025; patient amiodarone has been discontinued 6. Anemia ? Secondary to chronic disorder monitoring H&H and transfuse if patient becomes symptomatic or hemoglobin falls below 7 ? 07/09/2025; patient hemoglobin level down to 10.9, was 13.1 on 07/01/2025. Will continue with monitoring with daily CBC with differential 7. Mild leukocytosis ? Secondary to patient underlying infection plan is to treat underlying clinical etiology 8. Essential hypertension ? Patient is on lisinopril held following patient intubated 9. Hypokalemia -Corrected per protocol, repeat potassium level ordered in a.m. 10. DVT prophylaxis ? Patient is on apixaban Time spent in the patient's overall evaluation,decision-making process, review of diagnostic data, adjustment of management, discussion with other providers, nursing nursing and ancillary staff involved in patient's care documentation, 40 Minutes Charges/Coding Visit Charges Inpatient E&M: 80297 Subs Hosp L2
[2025-07-14 08:09] LABS: Hematocrit 38.8 % (37-47); Hemoglobin 12.6 g/dL (12.0-15.0); Immature Granulocytes Count 0.560 X10^3/uL (0.0-0.0); Mean Corp Hgb Conc 32.5 g/dL (32-36); Mean Corpuscular Volume 95.6 fL (81-99); Mean Platelet Vol. 10.4 fl (6.2-12.0); NRBC Flagged by Analyzer 0 % (0-5); POSITIVE DIFFERENTIAL YES; Platelet Count 363 K/mm3 (150-450); RBC Distribution Width CV 15.1 % (11.6-14.6); RBC Distribution Width SD 52.7 fl (35.1-43.9); Red Blood Count 4.06 M/mm3 (4.2-5.4); White Blood Count 25.9 K/mm3 (4.4-11.0)
[2025-07-14 08:11] LABS: Differential Indicated SCAN CRITERIA MET
[2025-07-14] MEDS: Senna/Docusate Sodium 1 Tablet 2 TABLET GT ×2 (08:14→21:31)
[2025-07-14] MEDS: Chlorhexidine 15 ML PO ×2 (08:14→20:46)
[2025-07-14] MEDS: Pantoprazole Sodium 40 MG in 0.9% Normal Saline (100mL MB+) 100 ML 300 MG IV (08:21)
[2025-07-14 08:31] LABS: Hypersegmented Neutrophils 1+
[2025-07-14 08:38] LABS: Anion Gap 8 (5-15); BUN 47 mg/dL (4-19); BUN/Creat Ratio 95.0 RATIO (10-20); Calcium,Total 8.1 mg/dL (7.6-11.0); Carbon Dioxide 27.9 mmol/L (21.0-32.0); Chloride 108 mmol/L (98-108); Estimated Creatinine Clearance 52.51 ml/min (50-250); Glucose 292 mg/dL (70-99); Potassium 5.2 mmol/L (3.3-5.1)
[2025-07-14] MEDS: fentaNYL drip 100 ML 7.5 MCG CONT INF (09:11)
[2025-07-14] MEDS: dexMEDEtomidine 400 MCG in 0.9% Normal Saline (100mL Bag) 96 ML 8.1 MCG CONT INF (09:20)
--- NOTE | 2025-07-14 10:03 | PCM.CONS.P ---
[facility] Medical History CKD (chronic kidney disease), stage II Anxiety Hydronephrosis of left kidney HTN (hypertension) PAF (paroxysmal atrial fibrillation) Bradycardia SVT (supraventricular tachycardia) Nonrheumatic mitral valve stenosis with insufficiency HLD (hyperlipidemia) Home Medications ?Medication ?Instructions ?Recorded ?Last Taken ?Type apixaban 5 mg tablet (Eliquis) 5 mg PO BID afib #180 tabs 09/02/24 07/06/25 Rx zolpidem 12.5 mg tablet,extended 12.5 mg PO QDAY PRN insomnia 03/03/25 07/05/25 History release,multiphase amiodarone 200 mg tablet 200 mg PO DAILY afib #90 tabs 06/01/25 07/06/25 Rx trazodone 50 mg tablet 50 - 100 mg PO QHS sleep 06/22/25 07/05/25 History alprazolam 0.25 mg tablet 0.25 mg PO BID PRN 07/02/25 07/06/25 Rx Anxiety/Agitation #4 tabs ipratropium 0.5 mg-albuterol 3 mg 3 ml inhalation Q6H.RT lungs #0 mL 07/02/25 07/06/25 Rx (2.5 mg base)/3 mL nebulization soln lisinopril 10 mg tablet 10 mg PO DAILY BP #0 tabs 07/02/25 07/06/25 Rx loperamide 2 mg capsule 2 mg PO Q4H PRN PRN DIARRHEA #0 07/02/25 07/03/25 Rx caps acetaminophen 500 mg capsule 1,000 mg PO Q6H PRN pain 07/06/25 07/05/25 History Allergy/AdvReac Type Severity Reaction Status Date / Time Sulfa (Sulfonamide Allergy doesnt Verified 07/06/25 10:42 Antibiotics) know why Family History Mother Colon cancer Diabetes Father Diabetes Surgical History S/P trigger finger release Hx of shoulder surgery History of bladder suspension procedure Social History household members: none Smoking Status: Never smoker alcohol intake: never substance use type: does not use caffeine: Yes Type: coffee Number of servings: 1 Prior Cardiac Testing/Procedures Prior Cardiac Testing/Procedures: Echocardiogram (EF of 65%) ROS Review of Systems ROS Unobtainable: due to endotracheal tube and due to mental status Physical Exam Const Constitutional Narrative: Patient is very ill-appearing on the ventilator. HEENT normocephalic Neck General: trachea midline Lymph Lymphatic: no lymphadenopathy noted Resp Effort and Inspection: tachypneic Auscultation: crackles right and diminished lung sounds Cardio peripheral pulses 2+ throughout Cardio Narrative: pounding Rate: tachycardic GI normal to inspection, nondistended, normoactive bowel sounds Extremity General Extremity: edema Skin no rashes or lesions noted Neuro Neuro Narrative: Patient is currently not following commands Gait (Neuro): unable to assess gait Psych Psych Narrative: Unable to assess Charges/Coding Palliative Care Palliative Care: 11500 New Pt Consult 60-79 min HPI Current admission Current Code Status: dnrcc-a with intubation Associated Diagnosis: ARDS Consult Data Date of Consult: 07/14/25 Location of consult: ICU Reason for referral: goals Referral source: MIKE/RADHA Palliative care diagnosis (Summary list): respiratory failure Palliative care services/treatment (Accepted, as consult): unable to accepted as pt is intubated Case discussed with referring provider: goals for family meeting HPI Narrative HPI Narrative: PAIN ASSESSMENT pt is on a fentanyl drip at 125mcg/hr. No grimacing noted Prior to meeting with the patient at bedside I reviewed labs, radiological studies and extensive documentation from current and previous visits. I then met with the patient at bedside. She is currently intubated and sedated. I did note her to have significant support with an FiO2 of 85% and a PEEP of 8.0. I did introduce myself as part of the palliative care team. There was no patient family at bedside and patient is intubated and sedated and unable to participate. Patient was admitted on 06/22/2025 to 07/02/2025 for community-acquired pneumonia she was then transferred to TCU for rehab. Patient was admitted for this admission on 07/06/2025, per documentation, met ARDS criteria. She was subsequently intubated 07/07/2025 and is currently day 8. She does have a chest tube for a right hemothorax. Bright red blood noted in collection chamber. I did note worsening leukocytosis at 25.9 today from 13.5 yesterday. Patient is on steroids, although it has been reduced to daily. She has been weaned off of propofol and is currently on Precedex at 1 and fentanyl at 125mcg/hr. repeat chest x-ray today did show infiltrates in the right midlung. She had an echocardiogram on 07/07/2025 which showed a LVEF of 65%. Current vital signs are blood pressure 143/112, heart rate is 126, she is 96% on the ventilator, she has a temperature of 100.1 Fahrenheit. Per documentation, they have been unsuccessful weaning the patient off of the ventilator. Per Dr. Browning's documentation, the patient did not want a trach and PEG. There is a family meeting scheduled with the patient's son tomorrow at 10 AM which I will be a part of. Based on the patient's goals prior to intubation, but not having a trach and PEG, recommendations would be to follow the patient's wishes and transition to comfort care should she continue to fail weaning of the ventilator. pt is currently, not following commands Will follow-up with family tomorrow during family meeting. per hospitalist:The patient is an 80 y/o F w/ PMHx: Anxiety, HLD, Hx SVT, Valvular Heart Disease, CKD stage I versus stage II, PAF, recent discharge following prolonged admission 07/02/2025 with transition following to TCU for ongoing therapy following evaluation of acute hypoxic respiratory failure secondary to extensive bilateral multifocal pneumonia initially placed on BiPAP eventually transition to Airvo, treated with Solu-Medrol as well as pulsed dose Lasix, SSI Yanely, IV Zosyn initially transition to IV Rocephin with cultures consistent with pneumococcal pneumonia completing antibiotic therapy during admission with incidentally noted left renal pelvis nonobstructive calculus and mild left hydronephrosis as well as persistent hypokalemia eventually corrected he now re-presents to the [facility] ED on 07/02/2025 with history of significant dyspnea, worsening with associate orthopnea with occasional cough with mildly petty/frothy sputum although she does report with severe coughing that occasionally she will have sputum tinged with elevated blood and does report they recently went down on her Eliquis in TCU with no marked congestion starting in the evening the day prior worse when she attempts to lay flat but better when she sits up although she reports has been waxing and waning with no recent recurrent fevers or chills prompting ED return precautions. Workup in the ED included T's 97.1, heart rate 95, BP 144/72, respiratory rate 31, 95% on 15 L nonrebreather eventually transition to Airvo with most recent repeat vitals T1 100.6 Kohr, BP 137/58, respiratory rate 34, 95% on 70% FiO2 Airvo, CBC with WBC 19.6, hemoglobin 13.2, platelet 327 with left shift, coags with D-dimer 0.71 however normal for age adjustment and PT 16.9 otherwise no marked appearing, ABG with pH 7.45, bicarb 30.3, O2 saturation 85%, PaO2 48 on nonrebreather, BMP with chloride 97, BUN/Cr 20/0.73, GFR 83, lactic acid 1.6, troponin initial 22, repeat delta 23, NT proBNPII 640, urinalysis not marked appearing, chest x-ray with worsening bilateral infiltrate appearance, blood culture x 2 pending per ED. In the ED patient ministered Tylenol 1000 g p.o. x 1, Ativan 0.5 mg IV x 1, IV Zosyn 4.5 g IV x 1 as well as 1 L normal saline. *This note was generated with [employer] dictation software. It may contain incorrect words, spelling, and punctuation that were not noted in checking the note before signing. Palliative Assessment Advanced Directive - Current Admission Advance Directive: Advance Directive ON ADMISSION - REFERENCE Which Advance Directives Living Will,Power of 07/06/25 15:04 documents are scanned in? [employer] Do you have a Healthcare Yes 07/06/25 15:04 Living Will? Is a Healthcare Living Will No, requested patient bring 07/06/25 15:04 present in the medical record? copy into [facility] Do you have a Healthcare Power Yes 07/06/25 15:04 of [employer]? Is a Healthcare Power of No, requested patient bring 07/06/25 15:04 [employer] present in the copy into [facility] medical rec Do You Want Additional Declined 07/06/25 15:04 Information on Advanced Directives or Healthcare Proxy/DPOA comments: Unknown if patient has a formal POA but her son, so Sy is listed as next of kin. [phone] Psychosocial/Spiritual Information Living situation/Marital status: pt was living in the TCU prior to this admission Geographic location: [place] Supports: family Spiritual distress: unable to assess Prior functional status: unknown Assistive devices at home: unknown Cultrual issues: unknown Information about the patient as a person: unknown Symptoms Palliative performance scale: 10% Palliative prognostic index: 15.0 Dyspnea symptoms: Severe Constipation symptoms: Mild Objective Data Objective Data Vital Signs: Vital Signs Temp Pulse Resp BP Pulse Ox O2 Del Method O2 Flow Rate 99.9 F H 124 H 22 H 129/97 H 92 Mechanical Ventilator 100 07/14/25 09:00 07/14/25 09:00 07/14/25 09:00 07/14/25 09:00 07/14/25 09:00 07/14/25 09:00 07/07/25 04:00 FiO2 50 07/14/25 09:00 Oxygen Flow Rate (L/min) 100 Oxygen Delivery Method Mechanical Ventilator Weight: 143 lb 4.807 oz Body Mass Index (BMI) 22.4 Intake & Output: Intake and Output for Last 24 Hours 07/12/25 07/13/25 07/14/25 23:59 23:59 23:59 Intake Total 2833.92 / 2866.12 2618.05 / 2688.25 463.13 / 463.13 Output Total 2087 / 2287 872 / 1222 925 / 925 Balance 746.92 / 579.12 1746.05 / 1466.25 -461.87 / -461.87 Lab / Micro Data Attestation: I reviewed the patient's lab results. Lab results narrative: WBCs are elevated today at 25.9 compared to 13.5 yesterday, elevated potassium at 5.2, elevated BUN 47, elevated blood sugar at 292 the patient is on steroids. 07/14/25 07:50 07/14/25 07:50 Labs: Laboratory Results - last 24 hr 07/07/25 11:01: Fluid Neutrophils 71, Fluid Lymphocytes 6, Fluid Monocytes Not Reportable, Fluid Macrophages 23 07/14/25 07:50: WBC 25.9 H, RBC 4.06 L, Hgb 12.6, Hct 38.8, MCV 95.6, MCH 31.0, MCHC 32.5, RDW Std Deviation 52.7 H, RDW Coeff of Hilda 15.1 H, Plt Count 363, MPV 10.4, Immature Gran % (Auto) 2.200 H, Neut % (Auto) 90.0 H, Lymph % (Auto) 3.1 L, [place] % (Auto) 4.6, Eos % (Auto) 0.0, Baso % (Auto) 0.1, Absolute Neuts (auto) 23.3 H, Absolute Lymphs (auto) 0.79 L, Nucleated RBC % 0, Hypersegmented Neuts 1+ H, Sodium 144, Potassium 5.2 H, Chloride 108, Carbon Dioxide 27.9, Anion Gap 8, BUN 47 H, Creatinine 0.50 L, Estim Creat Clear Calc 52.51, Est GFR (MDRD) Non-Af 95, BUN/Creatinine Ratio 95.0 H, Glucose 292 H, Calcium 8.1 Micro: Microbiology 07/12/25 11:15 Urine Catheter - Catheter Urine Culture - Final Yeast, not Ashlee albicans 07/06/25 11:55 Blood Culture (Wb) - Left Wrist Blood Culture - Final No growth in 5 days. 07/06/25 11:59 Blood Culture (Wb) - Right Hand Blood Culture - Final No growth in 5 days. 07/07/25 08:35 Sputum, Induced/Lukens Gram Stain - Final 07/07/25 08:35 Sputum, Induced/Lukens Respiratory Culture - Final Culture exhibits no growth. 07/07/25 11:01 Bronchial Lavage - Bronchial Gram Stain - Final 07/07/25 11:01 Bronchial Lavage - Bronchial Respiratory Culture - Final Culture exhibits no growth. 07/06/25 15:12 Mucosa - Nasopharyngeal Respiratory Panel (PCR) - Final 07/06/25 16:10 Nasal Secretion MRSA (PCR) - Final 07/06/25 15:12 Mucosa - Nasopharyngeal Coronavirus COVID-19 PCR - Final 07/06/25 11:46 Urine Catheter - High Streptococcus pneumoniae Antigen (M - Final 07/06/25 11:46 Urine Catheter - High Legionella Antigen - Final Radiography Diagnostic Testing: Radiology Impression Chest X-Ray 07/14/25 05:55 IMPRESSION: Stable study with no definite pneumothorax at this time. If clinically warranted correlation with CT would be helpful Reading Location: [place] [address] Rhythm Strip Rhythm Strip: Sinus Tach Rate: 126 Impressions & Recommendations Patient & Family Issues discussed with the patient and family: No family present Patient goal: Patient unable to participate Family goal: No family present Ethical & Legal Ethical and legal: Will need to utilize next of kin for decision making going forward Impressions Impressions: Patient continues to be acutely ill despite aggressive medical management. Recommentation Palliative recommendations: That hearing to the patient's requests prior to intubation where she stated that she would not want trach and PEG, per documentation. I would recommend that the patient be placed on comfort care. Per documentation the patient only wanted a time-limited trial on the ventilator. Encouter Achieved as a result of this Palliative Care Encounter: [ [id number], [id number]] minutes were spent in total for this visit which consisted, primarily of counseling and education dealing with the complex and emotionally intense issues of symptom management and palliative care in the setting of serious and potentially life-threatening illness. Review of documentation, labs and radiological studies. ?Patient/family had the opportunity to ask questions Plan (1) ARDS (adult respiratory distress syndrome): (2) Respiratory failure: QUALIFIERS: Chronicity: acute Respiratory failure complication: hypoxia Qualified Code(s): J96.01 - Acute respiratory failure with hypoxia (3) Pneumothorax on right: (4) Respiratory failure: QUALIFIERS: Chronicity: acute Respiratory failure complication: hypoxia Qualified Code(s): J96.01 - Acute respiratory failure with hypoxia (5) Palliative care encounter: (6) Goals of care, counseling/discussion: PLAN: Plan *Medical management per primary team *Family meeting scheduled for tomorrow at 10 AM *Recommend following patient's wishes for time-limited trial on the ventilator and trach and PEG.
[2025-07-14] MEDS: Amiodarone 360 MG in Dextrose 5% Viaflo Bag 192.8 ML 16.7 MG CONT INF ×2 (10:11→20:33)
[2025-07-14] MEDS: Vital AF 1.2 Cal Liquid 1,000 ML 55 ML GT (10:12)
--- NOTE | 2025-07-14 10:26 | CASEMGMT ---
Social Work SW participated in ICU rounds. A meeting in person w/pt's son would be beneficial. SW called son Sy, he can come in tomorrow at 10am. SW let physician know as well as Ca from palliative care, both available at this time. Bedside RN also updated on meeting time tomorrow. BIRD Blakely
--- NOTE | 2025-07-14 10:55 | RAD_ITS ---
PROCEDURE: CHEST 1 VIEW (PORTABLE) 07/14/2025 REASON FOR EXAM: WORSENING HYPOXIA TECHNIQUE: Frontal view of the chest. COMPARISON: July 14, 2025 3:52 a.m.. FINDINGS: Hardware: An endotracheal tube is in-situ. The tip is at 49 mm above the helga. An orogastric tube is seen with the tip in the body of the stomach. EKG electrodes are seen. A right-sided chest tube is seen in the right lung apex. Heart: Mild cardiomegaly. Lungs: Stable pleural-parenchymal changes at the lung bases worse on the left side. Stable infiltrate in the right upper lobe. No evidence of pneumothorax. Bones: Stable right rib fractures. RAD/Chest 1 View (Portable) IMPRESSION: The support tubes are all in good position. Stable bilateral pleural-parenchymal changes as well as infiltrate in the right midlung. Reading Location: [id number]
[2025-07-14] MEDS: dexMEDEtomidine 400 MCG in 0.9% Normal Saline (100mL Bag) 96 ML 16.3 MCG CONT INF (14:58)
[2025-07-14] MEDS: fentaNYL drip 100 ML 12.5 MCG CONT INF (17:16)
--- NOTE | 2025-07-14 18:10 | NURSING ---
In to turn pt and perform oral hygiene. Noted ETT at 22 at the lip when previously has been 25 at the lip. Respiratory therapy called and on their way to the floor. Pt's OT sats have maintained in the high 90s.
[2025-07-14] MEDS: dexMEDEtomidine 400 MCG in 0.9% Normal Saline (100mL Bag) 96 ML 13 MCG CONT INF (21:47)
[2025-07-15] VITALS (36 sets, daily range): BP systolic 89–131; BP diastolic 66–98; PULSE 94–127; RESP 15–32; TEMP 37.8–38.9; O2SAT 90–122
[2025-07-15] MEDS: fentaNYL drip 100 ML 12.5 MCG CONT INF ×3 (01:16→17:32)
--- NOTE | 2025-07-15 04:25 | RAD_ITS ---
PROCEDURE: CHEST 1 VIEW (PORTABLE) 07/15/2025 REASON FOR EXAM: PTX TECHNIQUE: Frontal view of the chest. COMPARISON: 07/14/2025 FINDINGS: Endotracheal tube is seen ending 4.9 cm away from the helga. Right central venous line is seen ending at mid SVC. Nasogastric tube is seen extending below the stomach. Stable appearing bilateral patchy areas of consolidation. Stable cardiac size and pulmonary venous congestion. Blunting of bilateral costophrenic recesses pulmonary pleural effusion/reaction. No definite pneumothorax at this time. Stable osseous structures. RAD/Chest 1 View (Portable) IMPRESSION: Satisfactory please the tubes and lines. No pneumothorax. Stable pulmonary findings. Reading [facility]
--- NOTE | 2025-07-15 05:36 | PN.HOSP_ITS ---
Reason for Visit Chief Complaint: Dyspnea, orthopnea. Subjective Subjective Patient seen remains on the vent. Fecal management with placed after patient developed several bouts of loose bowel movement.Plan is for family meeting to discuss goals of care Objective Data Objective Data Vital Signs: Vital Signs Temp Pulse Resp BP Pulse Ox O2 Del Method O2 Flow Rate 100.5 F H 109 H 19 H 104/73 92 Mechanical Ventilator 100 07/15/25 03:00 07/15/25 04:00 07/15/25 04:00 07/15/25 04:00 07/15/25 04:00 07/15/25 04:00 07/07/25 04:00 FiO2 80 07/15/25 04:00 Oxygen Flow Rate (L/min) 100 Oxygen Delivery Method Mechanical Ventilator Weight: 65 kg Body Mass Index (BMI) 22.4 Intake & Output: Intake and Output for Last 24 Hours 07/13/25 07/14/25 07/15/25 23:59 23:59 23:59 Intake Total 2763.05 / 2833.25 2275.83 / 2391.33 305.90 / 305.90 Output Total 872 / 1222 1705 / 2305 600 / 600 Balance 1891.05 / 1611.25 570.83 / 86.33 -294.10 / -294.10 Lab / Micro Data 07/14/25 07:50 07/14/25 07:50 Labs: Laboratory Results - last 24 hr 07/07/25 11:01: Fluid Neutrophils 71, Fluid Lymphocytes 6, Fluid Monocytes Not Reportable, Fluid Macrophages 23 07/14/25 07:50: WBC 25.9 H, RBC 4.06 L, Hgb 12.6, Hct 38.8, MCV 95.6, MCH 31.0, MCHC 32.5, RDW Std Deviation 52.7 H, RDW Coeff of Hilda 15.1 H, Plt Count 363, MPV 10.4, Immature Gran % (Auto) 2.200 H, Neut % (Auto) 90.0 H, Lymph % (Auto) 3.1 L , [place] % (Auto) 4.6, Eos % (Auto) 0.0, Baso % (Auto) 0.1, Absolute Neuts (auto) 23.3 H, Absolute Lymphs (auto) 0.79 L, Nucleated RBC % 0, Hypersegmented Neuts 1+ H, Sodium 144, Potassium 5.2 H, Chloride 108, Carbon Dioxide 27.9, Anion Gap 8, BUN 47 H, Creatinine 0.50 L, Estim Creat Clear Calc 52.51, Est GFR (MDRD) Non-Af 95, BUN/Creatinine Ratio 95.0 H, Glucose 292 H, Calcium 8.1 Micro: Microbiology 07/12/25 10:54 Blood Culture (Wb) - T Lumen Blood Culture - Preliminary No growth in 48 hours. 07/12/25 10:59 Blood Culture (Wb) - Anticubital Left Blood Culture - Preliminary No growth in 48 hours. 07/12/25 11:15 Urine Catheter - Catheter Urine Culture - Final Yeast, not Ashlee albicans 07/06/25 11:55 Blood Culture (Wb) - Left Wrist Blood Culture - Final No growth in 5 days. 07/06/25 11:59 Blood Culture (Wb) - Right Hand Blood Culture - Final No growth in 5 days. 07/07/25 08:35 Sputum, Induced/Lukens Gram Stain - Final 07/07/25 08:35 Sputum, Induced/Lukens Respiratory Culture - Final Culture exhibits no growth. 07/07/25 11:01 Bronchial Lavage - Bronchial Gram Stain - Final 07/07/25 11:01 Bronchial Lavage - Bronchial Respiratory Culture - Final Culture exhibits no growth. 07/06/25 15:12 Mucosa - Nasopharyngeal Respiratory Panel (PCR) - Final 07/06/25 16:10 Nasal Secretion MRSA (PCR) - Final 07/06/25 15:12 Mucosa - Nasopharyngeal Coronavirus COVID-19 PCR - Final 07/06/25 11:46 Urine Catheter - High Streptococcus pneumoniae Antigen (M - Final 07/06/25 11:46 Urine Catheter - High Legionella Antigen - Final Radiography Diagnostic Testing: Radiology Impression Chest X-Ray 07/14/25 10:55 IMPRESSION: The support tubes are all in good position. Stable bilateral pleural-parenchymal changes as well as infiltrate in the right midlung. Reading Location: [id number] Rhythm Strip Rhythm Strip: Sinus Tach Rate: 126 Physical Exam Narrative GENERAL: On the vent sedated HEENT: Atraumatic; normocephalic, ET tube EYES; Anicteric, Normal Conjunctiva NECK; supple, normal thyroid, RESPIRATORY: Diminished to auscultation, chest tube on the right side CARDIOVASCULAR: Regular S1 S2, GI: soft, normoactive bowel sounds, : No Renal angle tenderness; EXTREMITIES: No edema, no clubbing, MUSCULOSKELETAL: no muscle wasting NEURO: Unable to assess patient on the vent SKIN: No Rash PSYCH; unable to assess Assessment & Plan Assessment/Plan (1) Acute respiratory failure with hypoxia: PLAN: Plan Patient is an 80-year-old female who was admitted from the transitional care unit with hypoxia. An assessment of pneumonia with ARDS was made patient was admitted to the intensive care unit placed on noninvasive ventilation BiPAP 1. Acute hypoxic respiratory failure ? Secondary to pneumonia with ARDS admitted to the intensive care unit. Patient was placed on noninvasive ventilation BiPAP case was apparently discussed with patient regarding her CODE STATUS she is agreeable to brief trial of intubation. Consult placed to digital marketing apprentice.. Patient clinical condition deteriorated resulting in patient being intubated. Case was discussed with Dr. Browning with intensive care ? 07/08/2025; patient underwent bronchoscopy the day prior findings as below Bilateral infiltrate, The airway examination of the left lung was normal. Scant, mucoid secretions were found in the right mainstem bronchus. Bronchoalveolar lavage was performed.. Patient WBC count remains elevated. Patient remains on the vent. Vent adjustment deferred to digital marketing apprentice ? 07/09/2025; patient remains on the vent and as stated below patient did develop right-sided pneumothorax, subsequent imaging studies ordered ? 07/10/2025; Patient remains on the vent chest x-ray this morning did show interval slight improvement of right pneumothorax now measuring approximately 1.2 cm in depth, previously 1.5 cm. Otherwise, grossly unchanged lung findings. ? 07/12/2025; patient remains on the vent underwent right thoracostomy tube placement by Dr. Zuleta the day prior. ? 07/13/2025; patient remains on the vent. Oxygen requirements improving. ? 07/14/2025; patient remains on the vent weaning trial this morning unsuccessful. Plan is for family meeting on 07/15/2025 regarding goals of care 2. Pneumonia with suspected gram-negative organisms ? Patient presented with respiratory failure described above placed on broad- spectrum antibiotic therapy cultures sent ? 07/09/2025; patient remains on the vent cultures sent following patient bronchoscopy still pending 3. Septic shock ? Secondary to pneumonia patient had to be started on norepinephrine in addition to hydrocortisone. Remains on broad-spectrum antibiotic therapy with piperacillin/tazobactam as well as vancomycin ? 07/09/2025; patient on epinephrine on hold 4. Right-sided pneumothorax ?Chest x-ray obtained on 06/08/2025 did show Interval development of a right- sided pneumothorax. Chest tube was subsequently placed by Dr. Browning with intensive care ? 07/10/2025; Patient remains on the vent chest x-ray this morning did show interval slight improvement of right pneumothorax now measuring approximately 1.2 cm in depth, previously 1.5 cm. Otherwise, grossly unchanged lung findings.. Patient apparently has an air leak plan is to manage conservatively ? 07/11/2025;Patient chest x-ray did demonstrate mild increase in the moderate right-sided hemothorax. Right thoracostomy pleural drainage catheter was reported to be in good position. There is unchanged multifocal airspace disease. Patient being managed with chest tube to wall suction as well as minimal PEEP as much as tolerated. Plan is to repeat chest x-ray later today and if there is further increase we will consult general surgery for surgical chest tube 07/12/2025; Patient underwent right thoracostomy tube placement by Dr. Zuleta the day prior. Subsequent imaging studies demonstrated significant reduction in patient's pneumothorax ? 07/13/2021; chest x-ray this a.m. mention nonvisualization of pneumothorax. ? 07/14/2025; pneumothorax resolved 5. Paroxysmal A-fib ? Patient is on amiodarone as well as systemic anticoagulation with apixaban ? 07/09/2025; patient amiodarone has been discontinued 6. Anemia ? Secondary to chronic disorder monitoring H&H and transfuse if patient becomes symptomatic or hemoglobin falls below 7 ? 07/09/2025; patient hemoglobin level down to 10.9, was 13.1 on 07/01/2025. Will continue with monitoring with daily CBC with differential 7. Mild leukocytosis ? Secondary to patient underlying infection plan is to treat underlying clinical etiology 8. Essential hypertension ? Patient is on lisinopril held following patient intubated 9. Hypokalemia -Corrected per protocol, repeat potassium level ordered in a.m. 10. DVT prophylaxis ? Patient is on apixaban 11. Diarrhea ? Attributed to patient tube feeding however with patient prolong hospitalization stool for C. difficile was sent Charges/Coding Visit Charges Inpatient E&M: 59883 Subs Hosp L2
[2025-07-15] MEDS: dexMEDEtomidine 400 MCG in 0.9% Normal Saline (100mL Bag) 96 ML 11.4 MCG CONT INF ×3 (05:38→23:41)
[2025-07-15] MEDS: Vital AF 1.2 Cal Liquid 1,000 ML 55 ML GT ×2 (05:39→23:43)
--- NOTE | 2025-07-15 05:47 | PCM.PN.INT ---
Assessment & Plan Assessment/Plan (1) Acute respiratory failure with hypoxia: (2) ARDS (adult respiratory distress syndrome): PLAN: Plan RECOMMENDATIONS: 1. Continue to wean FiO2 and PEEP to maintain saturations at or above 90%. 2. Start scheduled IV Lasix twice daily. 3. Okay to discontinue corticosteroids. 4. Continue chest tube to wall suction. 5. Continue Precedex and fentanyl for sedation. 6. Continue tube feeding for nutritional support. 7. Continue appropriate ICU prophylaxis. 8. Ongoing goals of care discussion with the patient's son. IMPRESSIONS: 1. Acute hypoxemic respiratory failure/ARDS The patient was just admitted to the hospital and treated for severe community-acquired pneumonia with antimicrobials and corticosteroids. She was ultimately discharged to the transitional care unit on July 02 and was readmitted on July 07 with worsening shortness of breath. Her chest imaging continues to show diffuse bilateral infiltrates, not fully explained by a cardiac etiology, with a PF ratio less than 100, consistent with ARDS. While an underlying infectious process is still a possibility, other potential etiologies include diffuse alveolar hemorrhage, AIP, eosinophilic pneumonia and possibly cryptogenic organizing pneumonia. Autoimmune serologies were checked and found to be negative. Bronchoscopy was performed on July 07, with cultures unrevealing to date. COVID, influenza and RSV PCR's were negative. Eosinophilia was not noted on the cell count from the BAL. It is certainly plausible, given the patient's trajectory and onset of symptoms, that she has underlying AIP. However, she is too clinically unstable to perform any type of lung biopsy. The patient has now completed a course of broad-spectrum antimicrobials. Will plan to discontinue corticosteroids today. Precedex and fentanyl will be continued for sedation. Appropriate ICU prophylaxis will be continued. Tube feeding will be continued for nutritional support. Will continue ongoing goals of care discussion with the patient's son. 2. Spontaneous pneumothorax The patient developed a spontaneous pneumothorax on July 09, which required chest tube placement. Recommend continuing chest tube to wall suction. 3. History of paroxysmal atrial fibrillation/anxiety/hypertension Complicates care, management, recovery and prognosis. Continue supportive measures as noted above. CODE STATUS: DNR CCA with intubation. CODE STATUS was discussed with the patient along with plan for care prior to intubation. The patient did indicate that she would not want to proceed with tracheostomy if she was unable to be weaned from invasive mechanical ventilatory support. TIME: 34 minutes of critical care time, independent of procedures, was spent addressing the patient's acute hypoxemic respiratory failure/ARDS, spontaneous pneumothorax, review of all data and collaboration with the care team. Subjective Subjective The patient was seen and examined at the bedside this morning. Events from the last 24 hours have been reviewed. The patient is currently afebrile, hemodynamically stable and maintaining appropriate oxygen saturations on assist-control mode of mechanical ventilation with an FiO2 requirement of 75% and PEEP of 8. The patient has been experiencing diarrhea, for which C. difficile workup is pending. She is currently documented to be overall net +9.7 L for the hospitalization. White blood cell count has improved to 11,000. Hemoglobin and platelet count are stable. Chemistry profile was unremarkable. The patient is currently sedated on Precedex and fentanyl. Objective Data Objective Data The patient's most recent lab work, culture data and imaging studies have all been personally reviewed. Surface echocardiogram revealed normal LV size and function with an ejection fraction of 65%. Respiratory viral panel was negative. COVID PCR was negative. Bronchial washing cultures have not demonstrated any growth to date. Vital Signs: Vital Signs Temp Pulse Resp BP Pulse Ox O2 Del Method O2 Flow Rate 100.5 F H 109 H 19 H 104/73 92 Mechanical Ventilator 100 07/15/25 03:00 07/15/25 04:00 07/15/25 04:00 07/15/25 04:00 07/15/25 04:00 07/15/25 04:00 07/07/25 04:00 FiO2 80 07/15/25 04:00 Oxygen Flow Rate (L/min) 100 Oxygen Delivery Method Mechanical Ventilator Weight: 143 lb 4.807 oz Body Mass Index (BMI) 22.4 Intake & Output: Intake and Output for Last 24 Hours 07/13/25 07/14/25 07/15/25 23:59 23:59 23:59 Intake Total 2763.05 / 2833.25 2275.83 / 2391.33 1324.52 / 1324.52 Output Total 872 / 1222 1705 / 2305 600 / 600 Balance 1891.05 / 1611.25 570.83 / 86.33 724.52 / 724.52 Lab / Micro Data Attestation: I reviewed the patient's lab results. 07/15/25 06:17 07/15/25 06:17 Labs: Laboratory Results - last 24 hr 07/07/25 11:01: Fluid Neutrophils 71, Fluid Lymphocytes 6, Fluid Monocytes Not Reportable, Fluid Macrophages 23 07/14/25 07:50: WBC 25.9 H, RBC 4.06 L, Hgb 12.6, Hct 38.8, MCV 95.6, MCH 31.0, MCHC 32.5, RDW Std Deviation 52.7 H, RDW Coeff of Hilda 15.1 H, Plt Count 363, MPV 10.4, Immature Gran % (Auto) 2.200 H, Neut % (Auto) 90.0 H, Lymph % (Auto) 3.1 L, [place] % (Auto) 4.6, Eos % (Auto) 0.0, Baso % (Auto) 0.1, Absolute Neuts (auto) 23.3 H, Absolute Lymphs (auto) 0.79 L, Nucleated RBC % 0, Hypersegmented Neuts 1+ H, Sodium 144, Potassium 5.2 H, Chloride 108, Carbon Dioxide 27.9, Anion Gap 8, BUN 47 H, Creatinine 0.50 L, Estim Creat Clear Calc 52.51, Est GFR (MDRD) Non-Af 95, BUN/Creatinine Ratio 95.0 H, Glucose 292 H, Calcium 8.1 Micro: Microbiology 07/12/25 10:54 Blood Culture (Wb) - T Lumen Blood Culture - Preliminary No growth in 48 hours. 07/12/25 10:59 Blood Culture (Wb) - Anticubital Left Blood Culture - Preliminary No growth in 48 hours. 07/12/25 11:15 Urine Catheter - Catheter Urine Culture - Final Yeast, not Ashlee albicans 07/06/25 11:55 Blood Culture (Wb) - Left Wrist Blood Culture - Final No growth in 5 days. 07/06/25 11:59 Blood Culture (Wb) - Right Hand Blood Culture - Final No growth in 5 days. 07/07/25 08:35 Sputum, Induced/Lukens Gram Stain - Final 07/07/25 08:35 Sputum, Induced/Lukens Respiratory Culture - Final Culture exhibits no growth. 07/07/25 11:01 Bronchial Lavage - Bronchial Gram Stain - Final 07/07/25 11:01 Bronchial Lavage - Bronchial Respiratory Culture - Final Culture exhibits no growth. 07/06/25 15:12 Mucosa - Nasopharyngeal Respiratory Panel (PCR) - Final 07/06/25 16:10 Nasal Secretion MRSA (PCR) - Final 07/06/25 15:12 Mucosa - Nasopharyngeal Coronavirus COVID-19 PCR - Final 07/06/25 11:46 Urine Catheter - High Streptococcus pneumoniae Antigen (M - Final 07/06/25 11:46 Urine Catheter - High Legionella Antigen - Final ABG Data ABG results: ABG 07/13/25 03:48 Specimen Type ART Sample Site L Radial pH 7.38 Bicarbonate Actual 32.8 H Total CO2 35 Base Excess 8 H O2 Saturation 96 O2 % 45.0 ABG pCO2 55.4 H ABG pO2 82 Herve Test Positive Respiration Rate 16 O2 Delivery Device Adult Vent Vent Mode PRVC Tidal Volume 375.0 POC PEEP 5 Radiography Diagnostic Testing: Radiology Impression Chest X-Ray 07/14/25 10:55 IMPRESSION: The support tubes are all in good position. Stable bilateral pleural-parenchymal changes as well as infiltrate in the right midlung. Reading Location: [id number] Chest X-Ray 07/15/25 04:25 IMPRESSION: Satisfactory please the tubes and lines. No pneumothorax. Stable pulmonary findings. Reading [facility] Rhythm Strip Rhythm Strip: Sinus Tach Rate: 126 Physical Exam Const Constitutional Narrative: Intubated, sedated and mechanically ventilated. No ventilator dyssynchrony noted. General Appearance: ill appearing and patient mechanically ventilated HEENT normocephalic and head/scalp atraumatic Mouth: endotracheal tube in place and OG tube in place Eyes PERRL, EOMs intact bilaterally and conjunctivae normal Neck supple General: trachea midline and CVC in place Chest inspection of chest normal Resp Resp Narrative: Right-sided chest tube in place without discernible airleak noted. Effort and Inspection: tachypneic Auscultation: diminished lung sounds; Negative for rales, rhonchi or wheezes Cardio regular rate, regular rhythm, S1 normal heart sound and S2 normal heart sound GI normal to inspection, nondistended, normoactive bowel sounds Extremity no clubbing, cyanosis or edema Skin no rashes or lesions noted Neuro Sensorium / Orientation: sedated on vent Charges/Coding Procedures Hospitalists Procedures: [id number] Critical Care 1st Hr
[2025-07-15 06:23] LABS: Hematocrit 36.7 % (37-47); Hemoglobin 11.6 g/dL (12.0-15.0); Immature Granulocytes Count 0.050 X10^3/uL (0.0-0.0); Mean Corp Hgb Conc 31.6 g/dL (32-36); Mean Corpuscular Volume 95.3 fL (81-99); Mean Platelet Vol. 10.9 fl (6.2-12.0); NRBC Flagged by Analyzer 0 % (0-5); POSITIVE MORPHOLOGY YES; Platelet Count 238 K/mm3 (150-450); RBC Distribution Width CV 14.9 % (11.6-14.6); RBC Distribution Width SD 51.8 fl (35.1-43.9); Red Blood Count 3.85 M/mm3 (4.2-5.4); White Blood Count 11.5 K/mm3 (4.4-11.0)
[2025-07-15 06:48] LABS: Differential Indicated SCAN CRITERIA MET
[2025-07-15 06:49] LABS: Differential Comment SCANNED
[2025-07-15 06:59] LABS: Anion Gap 6 (5-15); BUN 47 mg/dL (4-19); BUN/Creat Ratio 107.5 RATIO (10-20); Calcium,Total 7.7 mg/dL (7.6-11.0); Carbon Dioxide 29.9 mmol/L (21.0-32.0); Chloride 109 mmol/L (98-108); Estimated Creatinine Clearance 52.51 ml/min (50-250); Glucose 264 mg/dL (70-99); Potassium 4.6 mmol/L (3.3-5.1)
--- NOTE | 2025-07-15 07:11 | PCM.PN.SRG ---
Subjective Subjective Patient evaluated intubated laying in bed. Per nursing, patient's overall status has not changed within 24 hours. Family meeting scheduled for today at 10 AM. CXR this morning demonstrated no recurrent pneumothorax. Chets tube still intact. Objective Data Objective Data Vital Signs: Vital Signs Temp Pulse Resp BP Pulse Ox O2 Del Method O2 Flow Rate 100.5 F H 122 H 21 H 104/73 96 Mechanical Ventilator 100 07/15/25 03:00 07/15/25 06:53 07/15/25 06:53 07/15/25 04:00 07/15/25 06:53 07/15/25 04:00 07/07/25 04:00 FiO2 80 07/15/25 04:00 Oxygen Flow Rate (L/min) 100 Oxygen Delivery Method Mechanical Ventilator Weight: 143 lb 4.807 oz Body Mass Index (BMI) 22.4 Intake & Output: Intake and Output for Last 24 Hours 07/13/25 07/14/25 07/15/25 23:59 23:59 23:59 Intake Total 2763.05 / 2833.25 2275.83 / 2391.33 1324.52 / 1324.52 Output Total 872 / 1222 1705 / 2305 600 / 600 Balance 1891.05 / 1611.25 570.83 / 86.33 724.52 / 724.52 Lab / Micro Data 07/15/25 06:17 07/15/25 06:17 Labs: Laboratory Results - last 24 hr 07/07/25 11:01: Fluid Neutrophils 71, Fluid Lymphocytes 6, Fluid Monocytes Not Reportable, Fluid Macrophages 23 07/14/25 07:50: WBC 25.9 H, RBC 4.06 L, Hgb 12.6, Hct 38.8, MCV 95.6, MCH 31.0, MCHC 32.5, RDW Std Deviation 52.7 H, RDW Coeff of Hilda 15.1 H, Plt Count 363, MPV 10.4, Immature Gran % (Auto) 2.200 H, Neut % (Auto) 90.0 H, Lymph % (Auto) 3.1 L, [place] % (Auto) 4.6, Eos % (Auto) 0.0, Baso % (Auto) 0.1, Absolute Neuts (auto) 23.3 H, Absolute Lymphs (auto) 0.79 L, Nucleated RBC % 0, Hypersegmented Neuts 1+ H, Sodium 144, Potassium 5.2 H, Chloride 108, Carbon Dioxide 27.9, Anion Gap 8, BUN 47 H, Creatinine 0.50 L, Estim Creat Clear Calc 52.51, Est GFR (MDRD) Non-Af 95, BUN/Creatinine Ratio 95.0 H, Glucose 292 H, Calcium 8.1 07/15/25 06:17: WBC 11.5 H, RBC 3.85 L, Hgb 11.6 L, Hct 36.7 L, MCV 95.3, MCH 30.1, MCHC 31.6 L, RDW Std Deviation 51.8 H, RDW Coeff of Hilda 14.9 H, Plt Count 238, MPV 10.9, Immature Gran % (Auto) 0.400, Neut % (Auto) 87.8 H, Lymph % (Auto) 8.5 L, [place] % (Auto) 3.0, Eos % (Auto) 0.0, Baso % (Auto) 0.3, Absolute Neuts (auto) 10.1 H, Absolute Lymphs (auto) 0.98, Nucleated RBC % 0, Differential Comment SCANNED, Sodium 144, Potassium 4.6, Chloride 109 H, Carbon Dioxide 29.9, Anion Gap 6, BUN 47 H, Creatinine 0.44 L, Estim Creat Clear Calc 52.51, Est GFR (MDRD) Non-Af 98, BUN/Creatinine Ratio 107.5 H, Glucose 264 H, Calcium 7.7 Micro: Microbiology 07/12/25 10:54 Blood Culture (Wb) - T Lumen Blood Culture - Preliminary No growth in 48 hours. 07/12/25 10:59 Blood Culture (Wb) - Anticubital Left Blood Culture - Preliminary No growth in 48 hours. 07/12/25 11:15 Urine Catheter - Catheter Urine Culture - Final Yeast, not Ashlee albicans 07/06/25 11:55 Blood Culture (Wb) - Left Wrist Blood Culture - Final No growth in 5 days. 07/06/25 11:59 Blood Culture (Wb) - Right Hand Blood Culture - Final No growth in 5 days. 07/07/25 08:35 Sputum, Induced/Lukens Gram Stain - Final 07/07/25 08:35 Sputum, Induced/Lukens Respiratory Culture - Final Culture exhibits no growth. 07/07/25 11:01 Bronchial Lavage - Bronchial Gram Stain - Final 07/07/25 11:01 Bronchial Lavage - Bronchial Respiratory Culture - Final Culture exhibits no growth. 07/06/25 15:12 Mucosa - Nasopharyngeal Respiratory Panel (PCR) - Final 07/06/25 16:10 Nasal Secretion MRSA (PCR) - Final 07/06/25 15:12 Mucosa - Nasopharyngeal Coronavirus COVID-19 PCR - Final 07/06/25 11:46 Urine Catheter - High Streptococcus pneumoniae Antigen (M - Final 07/06/25 11:46 Urine Catheter - High Legionella Antigen - Final Radiography Diagnostic Testing: Radiology Impression Chest X-Ray 07/14/25 10:55 IMPRESSION: The support tubes are all in good position. Stable bilateral pleural-parenchymal changes as well as infiltrate in the right midlung. Reading Location: [facility] Chest X-Ray 07/15/25 04:25 IMPRESSION: Satisfactory please the tubes and lines. No pneumothorax. Stable pulmonary findings. Reading Location: [place] [id number] Rhythm Strip Rhythm Strip: Sinus Tach Rate: 126 Physical Exam Chest Chest Narrative: Right chest- chest tube intact. No air leak noted today. Continue chest tube to suction at -20 cm. Assessment & Plan Assessment/Plan (1) Pneumothorax on right: PLAN: I am following this patient in conjunction with Dr. Gamboa in Dr. Zuleta's absence. He will independently evaluate this patient. CXR obtained this morning demonstrating no residual pneumothorax on the right Continue chest tube on -20 cm and wall suction until after extubated Family meeting today to discuss further goals We will continue to monitor this patient Charges/Coding Visit Charges Inpatient E&M: 57159 Subs Hosp L2
[2025-07-15] MEDS: Pantoprazole Sodium 40 MG in 0.9% Normal Saline (100mL MB+) 100 ML 300 MG IV (09:20)
[2025-07-15] MEDS: Amiodarone 360 MG in Dextrose 5% Viaflo Bag 192.8 ML 16.7 MG CONT INF ×2 (09:22→21:23)
[2025-07-15] MEDS: Chlorhexidine 15 ML PO ×2 (09:23→21:20)
[2025-07-15] MEDS: CHLORHEXIDINE GLUC 2% CLOTH 1 EACH TOWELETTE TOPICAL (09:23)
--- NOTE | 2025-07-15 10:43 | PCM.PN.PAL ---
Subjective Subjective prior to family meeting I reviewed labs, radiological studies and documentation, as well as meeting with Dr. Browning to discuss pt case. Myself, RADHA Pace and Dr. Browning met with pt shama, Michael and niece Nella in the room with niece Nishi on speaker phone. Nam Staley discussed pt wishes that she expressed prior to intubation in which she made it very clear that she would not want trach/PEG and LTAC. Son, Michael, was having difficulty grasping that his mother had mad her decision prior to her intubation and that she was open to a time limited trial on the vent. She has gotten progressively worse during this hospitalization and aggressive medical management. 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 They are being very supportive of Michael during this difficult time and are supportive of compassionate liberation from the vent. Nishi will be arriving from [place]. Michael is possibly wanting to wait until the 14 days are up before removing the vent. Alexa appears to be very uncomfortable, at this time. Recommendation is to remove the vent sooner than later to alleviate further suffering but the decision is with the family. It was agreed to continue medical management as currently performing and continue discussions with family, once Nishi has arrived. All questions the family had were answered. Pallaitive care will continue to follow for support as clinical pricture evolves. Objective Data Objective Data Vital Signs: Vital Signs Temp Pulse Resp BP Pulse Ox O2 Del Method O2 Flow Rate 100.8 F H 125 H 22 H 126/92 H 93 Mechanical Ventilator 100 07/15/25 10:00 07/15/25 10:00 07/15/25 10:00 07/15/25 10:00 07/15/25 10:00 07/15/25 10:00 07/07/25 04:00 FiO2 75 07/15/25 10:00 Oxygen Flow Rate (L/min) 100 Oxygen Delivery Method Mechanical Ventilator Weight: 143 lb 4.807 oz Body Mass Index (BMI) 22.4 Intake & Output: Intake and Output for Last 24 Hours 07/13/25 07/14/25 07/15/25 23:59 23:59 23:59 Intake Total 2763.05 / 2833.25 2275.83 / 2391.33 1868.56 / 1868.56 Output Total 872 / 1222 1705 / 2305 800 / 800 Balance 1891.05 / 1611.25 570.83 / 86.33 1068.56 / 1068.56 Lab / Micro Data Attestation: I reviewed the patient's lab results. Lab results narrative: Inprovement in WBC's from 25.9 yesterday to 11.5 today. This is most likely related to decrease in steroid useage. 07/15/25 06:17 07/15/25 06:17 Labs: Laboratory Results - last 24 hr 07/15/25 06:17: WBC 11.5 H, RBC 3.85 L, Hgb 11.6 L, Hct 36.7 L, MCV 95.3, MCH 30.1, MCHC 31.6 L, RDW Std Deviation 51.8 H, RDW Coeff of Hilda 14.9 H, Plt Count 238, MPV 10.9, Immature Gran % (Auto) 0.400, Neut % (Auto) 87.8 H, Lymph % (Auto) 8.5 L, [place] % (Auto) 3.0, Eos % (Auto) 0.0, Baso % (Auto) 0.3, Absolute Neuts (auto) 10.1 H, Absolute Lymphs (auto) 0.98, Nucleated RBC % 0, Differential Comment SCANNED, Sodium 144, Potassium 4.6, Chloride 109 H, Carbon Dioxide 29.9, Anion Gap 6, BUN 47 H, Creatinine 0.44 L, Estim Creat Clear Calc 52.51, Est GFR (MDRD) Non-Af 98, BUN/Creatinine Ratio 107.5 H, Glucose 264 H, Calcium 7.7 Micro: Microbiology 07/15/25 07:00 Stool C. difficile GDH Antigen & Toxins - Final 07/15/25 07:00 Stool Clostridioides difficile (PCR) - Final 07/12/25 10:54 Blood Culture (Wb) - T Lumen Blood Culture - Preliminary No growth in 48 hours. 07/12/25 10:59 Blood Culture (Wb) - Anticubital Left Blood Culture - Preliminary No growth in 48 hours. 07/12/25 11:15 Urine Catheter - Catheter Urine Culture - Final Yeast, not Ashlee albicans 07/06/25 11:55 Blood Culture (Wb) - Left Wrist Blood Culture - Final No growth in 5 days. 07/06/25 11:59 Blood Culture (Wb) - Right Hand Blood Culture - Final No growth in 5 days. 07/07/25 08:35 Sputum, Induced/Lukens Gram Stain - Final 07/07/25 08:35 Sputum, Induced/Lukens Respiratory Culture - Final Culture exhibits no growth. 07/07/25 11:01 Bronchial Lavage - Bronchial Gram Stain - Final 07/07/25 11:01 Bronchial Lavage - Bronchial Respiratory Culture - Final Culture exhibits no growth. 07/06/25 15:12 Mucosa - Nasopharyngeal Respiratory Panel (PCR) - Final 07/06/25 16:10 Nasal Secretion MRSA (PCR) - Final 07/06/25 15:12 Mucosa - Nasopharyngeal Coronavirus COVID-19 PCR - Final 07/06/25 11:46 Urine Catheter - High Streptococcus pneumoniae Antigen (M - Final 07/06/25 11:46 Urine Catheter - High Legionella Antigen - Final Radiography Diagnostic Testing: Radiology Impression Chest X-Ray 07/14/25 10:55 IMPRESSION: The support tubes are all in good position. Stable bilateral pleural-parenchymal changes as well as infiltrate in the right midlung. Reading Location: [id number] Chest X-Ray 07/15/25 04:25 IMPRESSION: Satisfactory please the tubes and lines. No pneumothorax. Stable pulmonary findings. Reading Location: [place] [address] Rhythm Strip Rhythm Strip: Sinus Tach Rate: 114 Physical Exam Const Constitutional Narrative: Patient is very ill-appearing on the ventilator. General Appearance: other intubated and sedated on the vent HEENT normocephalic Neck General: trachea midline Lymph Lymphatic: no lymphadenopathy noted Chest Chest Narrative: Right chest- chest tube intact. No air leak noted today. Continue chest tube to suction at -20 cm. Resp Effort and Inspection: tachypneic Auscultation: crackles right and diminished lung sounds Cardio peripheral pulses 2+ throughout Cardio Narrative: pounding Rate: tachycardic GI GI Narrative: fecal containment system in place Auscultation: hyperactive bowel sounds Bladder / Kidney Exam: catheter in place Extremity General Extremity: edema Skin no rashes or lesions noted Neuro Neuro Narrative: Patient is currently not following commands Gait (Neuro): unable to assess gait Psych Psych Narrative: Unable to assess Charges/Coding Palliative Care Palliative Care: 21036 New Pt Consult 80+ min Consulation Summary Current admission Current Code Status: DNRCC-A Associated Diagnosis: acute respiratory failure Consult Data Date of Consult: 07/14/25 Location of consult: ICU Reason for referral: goals Referral source: MIKE/RADHA Palliative care diagnosis (Summary list): respiratory failure Palliative care services/treatment (Accepted, as consult): accepted by family Case discussed with referring provider: goals of care Palliative Assessment Advanced Directive - Current Admission Advance Directive: Advance Directive ON ADMISSION - REFERENCE Which Advance Directives Living Will,Power of 07/06/25 15:04 documents are scanned in? Clinical Education Assistant Do you have a Healthcare Yes 07/06/25 15:04 Living Will? Is a Healthcare Living Will No, requested patient bring 07/06/25 15:04 present in the medical record? copy into [facility] Do you have a Healthcare Power Yes 07/06/25 15:04 of Clinical Education Assistant? Is a Healthcare Power of No, requested patient bring 07/06/25 15:04 Clinical Education Assistant present in the copy into [facility] medical rec Do You Want Additional Declined 07/06/25 15:04 Information on Advanced Directives or Symptoms Dyspnea symptoms: Severe Diarrhea symptoms: Severe Confusion symptoms: Severe Impression & Recommendations Recommentation Palliative recommendations: adhering to the patient's requests prior to intubation where she stated that she would not want trach and PEG, per documentation. I would recommend that the patient be placed on comfort care once all family arrive, Per documentation the patient only wanted a time-limited trial on the ventilator. Encouter Achieved as a result of this Palliative Care Encounter: [[id number], [phone] ] minutes were spent in total for this visit which consisted, primarily of counseling and education dealing with the complex and emotionally intense issues of symptom management and palliative care in the setting of serious and potentially life-threatening illness. Review of documentation, labs and radiological studies. ?Patient/family had the opportunity to ask questions Plan (1) ARDS (adult respiratory distress syndrome): (2) Respiratory failure: QUALIFIERS: Chronicity: acute Respiratory failure complication: hypoxia Qualified Code(s): J96.01 - Acute respiratory failure with hypoxia (3) Pneumothorax on right: (4) Palliative care encounter: (5) Goals of care, counseling/discussion: PLAN: Plan *Medical management per primary team *Family meeting scheduled for today at 10 AM-extensive discussion about pt wishes and ethical concerns. Plan for comfort *Recommend following patient's wishes for time-limited trial on the ventilator and trach and PEG. *recommendation of comfort care once ETT removal. ROS ROS Narrative Admission Review of Systems: CONSTITUTIONAL: No weight loss, weakness or fatigue however, FEBRILE in the ED with also chills reported per family. HEENT: Eyes: No visual loss, blurred vision, double vision or yellow sclerae. Ears, Nose, Throat: No hearing loss, sneezing, congestion, runny nose or sore throat. SKIN: No rash or itching, lesions, wounds except + occasional stage ecchymoses, abrasions. CARDIOVASCULAR: + Dyspnea, orthopnea. No chest pain, chest pressure or chest discomfort, palpitations, edema, syncopal events. RESPIRATORY: + Dyspnea, occasional cough with petty/frothy sputum. No marked wheezing, hemoptysis. GASTROINTESTINAL: No anorexia, nausea, vomiting or diarrhea, abdominal pain, melena, BRBPR. GENITOURINARY: No dysuria, frequency, urgency or retention. NEUROLOGICAL: No headache, dizziness, syncope, paralysis, ataxia, numbness or tingling in the extremities, focal weakness, change in bowel or bladder control, seizure. MUSCULOSKELETAL: No muscle, back pain, joint pain or stiffness. HEMATOLOGIC: No anemia. + Easy bleeding/bruising. LYMPHATICS: No enlarged nodes. No history of splenectomy. PSYCHIATRIC: + History of anxiety. ENDOCRINOLOGIC: No reports of sweating, cold or heat intolerance. No polyuria or polydipsia. ALLERGIES: No history of asthma, hives, eczema or rhinitis. Review of Systems ROS Unobtainable: due to endotracheal tube and due to mental condition Constitutional Constitutional: Denies chills or fever(s) Eyes Eyes: Denies blurry vision or change in vision ENT HEENT: Denies rhinorrhea or sore throat Cardiovascular Cardiovascular: Denies chest pain or palpitations Respiratory/Chest Respiratory/Chest: Reports dyspnea; Denies cough Gastrointestinal Gastrointestinal: Denies nausea or vomiting Genitourinary Genitourinary: Denies dysuria or hematuria Musculoskeletal Musculoskeletal: Reports back pain; Denies neck pain Integumentary Integumentary: Denies rash Neurologic Neurologic: Reports headache(s); Denies weakness Allergic/Immunologic Allergic/Immunologic: Denies urticaria
--- NOTE | 2025-07-15 10:56 | CASEMGMT ---
Social Work Meeting held today with pt's son Sy and pt's niece Nella present and pt's niece Shelby on conference call. [facility] [employer] and this repairer typewriter present. Goals of care discussed with family. Physician explained at length medical condition and pt verbalization of wishes for no tracheostomy prior to intubation. Nella and Shelby acknowledge that pt also expressed her wishes to them confirming no trach. Support provided to pt's son and all questions answered. Shelby lives in [place] and will get plane tickets to be here in the next day or 2. Family agreeable to extubation at some point after Shelby arrives. Nella and Shelby are understanding of pt prognosis and are agreeable to remain supportive to Sy as he processes situation. SW will remain available to provide emotional support to pt's son throughout process. NEHAL Ivory
[2025-07-15] MEDS: Acetaminophen 650 MG/20 ML UDC GT ×2 (12:07→21:19)
[2025-07-15] MEDS: Vancomycin 125 MG/5 ML Susp PO.SYRINGE NG ×3 (12:07→23:43)
[2025-07-16] VITALS (40 sets, daily range): BP systolic 63–168; BP diastolic 45–108; PULSE 92–147; RESP 16–33; TEMP 37.8–38.8; O2SAT 88–99; BMI 21.9
[2025-07-16] MEDS: CHLORHEXIDINE GLUC 2% CLOTH 1 EACH TOWELETTE TOPICAL ×2 (00:49→11:05)
[2025-07-16] MEDS: fentaNYL drip 100 ML 12.5 MCG CONT INF (00:49)
--- NOTE | 2025-07-16 05:25 | RAD_ITS ---
PROCEDURE: CHEST 1 VIEW (PORTABLE) 07/16/2025 REASON FOR EXAM: PTX TECHNIQUE: Frontal view of the chest. COMPARISON: 07/15/2025. FINDINGS: Endotracheal tube is in good position. Enteric feeding tube is in good position with its tip extending below the level of the left hemidiaphragm. Right internal jugular central catheter is in good position with its tip in the superior vena cava. Right thoracostomy pleural drainage catheter is in good position. Minimal bilateral pleural effusions. Moderate central pulmonary venous congestion. No significant pneumothorax is identified. Enlarged cardiac silhouette. Normal mediastinum and toni. Normal visualized pulmonary arteries. Atheromatous plaques of the visualized aortic arch and descending thoracic aorta. Diffuse spondylosis of the visualized thoracic spine. Normal visualized ribs, clavicles. Degenerative joint disease. There is no demonstrated abnormality of the visualized soft tissue structures of the upper abdomen. RAD/Chest 1 View (Portable) IMPRESSION: Endotracheal tube is in good position. Enteric feeding tube is in good position with its tip extending below the level of the left hemidiaphragm. Right internal jugular central catheter is in good position with its tip in the superior vena cava. Right thoracostomy pleural drainage catheter is in good position. Minimal bilateral pleural effusions. Moderate central pulmonary venous congestion. No significant pneumothorax is identified. Enlarged cardiac silhouette. Reading Location: [id number]
--- NOTE | 2025-07-16 05:35 | PCM.PN.INT ---
Assessment & Plan Assessment/Plan (1) Acute respiratory failure with hypoxia: (2) ARDS (adult respiratory distress syndrome): PLAN: Plan RECOMMENDATIONS: 1. Continue to wean FiO2 and PEEP to maintain saturations at or above 90%. 2. Continue IV Lasix twice daily. 3. Continue Precedex and fentanyl for sedation. 4. Continue tube feeding for nutritional support. 5. Continue appropriate ICU prophylaxis. 6. Proceed with spontaneous awakening and breathing trials as tolerated. 7. Continue p.o. vancomycin to address C. difficile colitis. IMPRESSIONS: 1. Acute hypoxemic respiratory failure/ARDS The patient was just admitted to the hospital and treated for severe community-acquired pneumonia with antimicrobials and corticosteroids. She was ultimately discharged to the transitional care unit on July 02 and was readmitted on July 07 with worsening shortness of breath. Her chest imaging continues to show diffuse bilateral infiltrates, not fully explained by a cardiac etiology, with a significantly decreased P to F ratio consistent with ARDS. While an underlying infectious process was initially considered, other potential etiologies include diffuse alveolar hemorrhage, AIP, eosinophilic pneumonia and possibly cryptogenic organizing pneumonia. Autoimmune serologies were checked and found to be negative. Bronchoscopy was performed with cultures unrevealing to date. COVID, influenza and RSV PCR's were negative. There was no significant eosinophilia noted on BAL cell count. It is certainly plausible, given the patient's trajectory and onset of symptoms, that she has underlying AIP. However, she is too clinically unstable to perform any type of lung biopsy. The patient has now completed a course of broad-spectrum antimicrobials, along with a course of corticosteroids. Will plan to continue current supportive care, including Lasix as tolerated by hemodynamics and renal function. Tube feeding will be continued for nutritional support. Appropriate ICU prophylaxis will be continued. Given the patient's wishes not to proceed with tracheostomy and PEG tube placement, goals of care discussion was undertaken with the patient's family. There are plans to continue supportive care until Sunday, at which time, the patient will be extubated if she does not improve clinically in the interim. 2. Spontaneous pneumothorax The patient developed a spontaneous pneumothorax on July 09, which required chest tube placement. Recommend continuing chest tube to wall suction. 3. C. difficile colitis Continue p.o. vancomycin as ordered. 4. History of paroxysmal atrial fibrillation/anxiety/hypertension Complicates care, management, recovery and prognosis. Continue supportive measures as noted above. CODE STATUS: DNR CCA with intubation. CODE STATUS was discussed with the patient along with plan for care prior to intubation. The patient did indicate that she would not want to proceed with tracheostomy if she was unable to be weaned from invasive mechanical ventilatory support. TIME: 35 minutes of critical care time, independent of procedures, was spent addressing the patient's acute hypoxemic respiratory failure/ARDS, spontaneous pneumothorax, C. difficile colitis, review of all data and collaboration with the care team. Subjective Subjective The patient was seen and examined at the bedside this morning. Events from the last 24 hours have been reviewed. The patient currently has a low-grade fever but remains otherwise hemodynamically stable on assist-control mode mechanical ventilation with an FiO2 requirement of 40% and PEEP of 5. The patient remains sedated on Precedex and fentanyl. She is documented to be overall net +8.7 L for the hospitalization. White blood cell count is normal. Hemoglobin this morning was noted to be 9.9 g/dL. Arterial blood gas was notable for a pH of 7.49 with a pCO2 of 45 and pO2 of 54. Chemistry profile was unremarkable. I did meet personally with the patient's family, including her son, yesterday to discuss overall prognosis and goals of care. He was once again emphasized to the patient's family that the patient communicated her wishes to proceed with a self-limited trial of intubation, but was insistent that tracheostomy and PEG tube placement not be considered. At this time, the patient's family is in agreement to continue current supportive care while awaiting additional family members to arrive from out of town. There are tentative plans to proceed with extubation on Sunday if there is no improvement in the patient's clinical status. Objective Data Objective Data The patient's most recent lab work, culture data and imaging studies have all been personally reviewed. Surface echocardiogram revealed normal LV size and function with an ejection fraction of 65%. Respiratory viral panel was negative. COVID PCR was negative. Bronchial washing cultures have not demonstrated any growth to date. Vital Signs: Vital Signs Temp Pulse Resp BP Pulse Ox O2 Del Method O2 Flow Rate 100.6 F H 104 H 16 105/76 93 Mechanical Ventilator 100 07/16/25 04:00 07/16/25 04:30 07/16/25 04:30 07/16/25 04:00 07/16/25 04:30 07/16/25 04:00 07/07/25 04:00 FiO2 40 07/16/25 04:00 Oxygen Flow Rate (L/min) 100 Oxygen Delivery Method Mechanical Ventilator Weight: 139 lb 15.896 oz Body Mass Index (BMI) 21.9 Intake & Output: Intake and Output for Last 24 Hours 07/14/25 07/15/25 07/16/25 23:59 23:59 23:59 Intake Total 2275.83 / 2391.33 3302.35 / 3368.46 213.31 / 213.31 Output Total 1705 / 2305 4300 / 4300 Balance 570.83 / 86.33 -997.65 / -931.54 213.31 / 213.31 Lab / Micro Data Attestation: I reviewed the patient's lab results. 07/16/25 06:05 07/16/25 06:05 Labs: Laboratory Results - last 24 hr 07/15/25 06:17: WBC 11.5 H, RBC 3.85 L, Hgb 11.6 L, Hct 36.7 L, MCV 95.3, MCH 30.1, MCHC 31.6 L, RDW Std Deviation 51.8 H, RDW Coeff of Hilda 14.9 H, Plt Count 238, MPV 10.9, Immature Gran % (Auto) 0.400, Neut % (Auto) 87.8 H, Lymph % (Auto) 8.5 L, [place] % (Auto) 3.0, Eos % (Auto) 0.0, Baso % (Auto) 0.3, Absolute Neuts (auto) 10.1 H, Absolute Lymphs (auto) 0.98, Nucleated RBC % 0, Differential Comment SCANNED, Sodium 144, Potassium 4.6, Chloride 109 H, Carbon Dioxide 29.9, Anion Gap 6, BUN 47 H, Creatinine 0.44 L, Estim Creat Clear Calc 52.51, Est GFR (MDRD) Non-Af 98, BUN/Creatinine Ratio 107.5 H, Glucose 264 H, Calcium 7.7 Micro: Microbiology 07/15/25 07:00 Stool C. difficile GDH Antigen & Toxins - Final 07/15/25 07:00 Stool Clostridioides difficile (PCR) - Final 07/12/25 10:54 Blood Culture (Wb) - T Lumen Blood Culture - Preliminary No growth in 48 hours. 07/12/25 10:59 Blood Culture (Wb) - Anticubital Left Blood Culture - Preliminary No growth in 48 hours. 07/12/25 11:15 Urine Catheter - Catheter Urine Culture - Final Yeast, not Ashlee albicans 07/06/25 11:55 Blood Culture (Wb) - Left Wrist Blood Culture - Final No growth in 5 days. 07/06/25 11:59 Blood Culture (Wb) - Right Hand Blood Culture - Final No growth in 5 days. 07/07/25 08:35 Sputum, Induced/Lukens Gram Stain - Final 07/07/25 08:35 Sputum, Induced/Lukens Respiratory Culture - Final Culture exhibits no growth. 07/07/25 11:01 Bronchial Lavage - Bronchial Gram Stain - Final 07/07/25 11:01 Bronchial Lavage - Bronchial Respiratory Culture - Final Culture exhibits no growth. 07/06/25 15:12 Mucosa - Nasopharyngeal Respiratory Panel (PCR) - Final 07/06/25 16:10 Nasal Secretion MRSA (PCR) - Final 07/06/25 15:12 Mucosa - Nasopharyngeal Coronavirus COVID-19 PCR - Final 07/06/25 11:46 Urine Catheter - High Streptococcus pneumoniae Antigen (M - Final 07/06/25 11:46 Urine Catheter - High Legionella Antigen - Final ABG Data ABG results: ABG 07/13/25 03:48 Specimen Type ART Sample Site L Radial pH 7.38 Bicarbonate Actual 32.8 H Total CO2 35 Base Excess 8 H O2 Saturation 96 O2 % 45.0 ABG pCO2 55.4 H ABG pO2 82 Herve Test Positive Respiration Rate 16 O2 Delivery Device Adult Vent Vent Mode PRVC Tidal Volume 375.0 POC PEEP 5 Radiography Diagnostic Testing: Radiology Impression Chest X-Ray 07/15/25 04:25 IMPRESSION: Satisfactory please the tubes and lines. No pneumothorax. Stable pulmonary findings. Reading Location: [place] [address] Rhythm Strip Rhythm Strip: Sinus Tach Rate: 114 Physical Exam Const Constitutional Narrative: Intubated, sedated and mechanically ventilated. No ventilator dyssynchrony noted. General Appearance: ill appearing and patient mechanically ventilated HEENT normocephalic and head/scalp atraumatic Mouth: endotracheal tube in place and OG tube in place Eyes PERRL, EOMs intact bilaterally and conjunctivae normal Neck supple General: trachea midline and CVC in place Chest inspection of chest normal Resp Resp Narrative: Right-sided chest tube in place without discernible airleak noted. Effort and Inspection: tachypneic Auscultation: diminished lung sounds; Negative for rales, rhonchi or wheezes Cardio regular rate, regular rhythm, S1 normal heart sound and S2 normal heart sound GI normal to inspection, nondistended, normoactive bowel sounds Extremity no clubbing, cyanosis or edema Skin no rashes or lesions noted Neuro Sensorium / Orientation: sedated on vent Charges/Coding Procedures Hospitalists Procedures: 51936 Critical Care 1st Hr
[2025-07-16] MEDS: Vancomycin 125 MG/5 ML Susp PO.SYRINGE NG ×3 (05:55→18:39)
[2025-07-16 06:11] LABS: Hematocrit 31.5 % (37-47); Hemoglobin 9.9 g/dL (12.0-15.0); Immature Granulocytes Count 0.080 X10^3/uL (0.0-0.0); Mean Corp Hgb Conc 31.4 g/dL (32-36); Mean Corpuscular Volume 95.2 fL (81-99); Mean Platelet Vol. 11.3 fl (6.2-12.0); NRBC Flagged by Analyzer 0 % (0-5); Platelet Count 190 K/mm3 (150-450); RBC Distribution Width CV 15.1 % (11.6-14.6); RBC Distribution Width SD 52.3 fl (35.1-43.9); Red Blood Count 3.31 M/mm3 (4.2-5.4); White Blood Count 10.6 K/mm3 (4.4-11.0)
[2025-07-16 06:21] LABS: Allen Test Positive; Base Excess 11 mmol/L (-2 to +2); FI02 40.0; PEEP 8; PO2 54 mmHG (75-100); RR 16; SITE L Radial; SO2 90 % (94-98)
[2025-07-16 06:35] LABS: Anion Gap 7 (5-15); BUN 46 mg/dL (4-19); BUN/Creat Ratio 98.3 RATIO (10-20); Calcium,Total 7.4 mg/dL (7.6-11.0); Carbon Dioxide 30.7 mmol/L (21.0-32.0); Chloride 107 mmol/L (98-108); Estimated Creatinine Clearance 52.51 ml/min (50-250); Glucose 209 mg/dL (70-99); Potassium 3.8 mmol/L (3.3-5.1)
[2025-07-16] MEDS: dexMEDEtomidine 400 MCG in 0.9% Normal Saline (100mL Bag) 96 ML 6.5 MCG CONT INF (08:00)
--- NOTE | 2025-07-16 08:07 | PCM.PN.SRG ---
Subjective Subjective Patient evaluated resting comfortably in bed. Intubated. Patient seems more alert this morning. PEEP requirements are continued to be wean. Objective Data Objective Data Vital Signs: Vital Signs Temp Pulse Resp BP Pulse Ox O2 Del Method O2 Flow Rate 100.8 F H 98 16 113/82 H 93 Mechanical Ventilator 100 07/16/25 05:00 07/16/25 07:12 07/16/25 07:12 07/16/25 06:00 07/16/25 07:12 07/16/25 06:00 07/07/25 04:00 FiO2 40 07/16/25 06:00 Oxygen Flow Rate (L/min) 100 Oxygen Delivery Method Mechanical Ventilator Weight: 139 lb 15.896 oz Body Mass Index (BMI) 21.9 Intake & Output: Intake and Output for Last 24 Hours 07/14/25 07/15/25 07/16/25 23:59 23:59 23:59 Intake Total 2275.83 / 2391.33 3302.35 / 3368.46 289.81 / 289.81 Output Total 1705 / 2305 4300 / 4300 375 / 375 Balance 570.83 / 86.33 -997.65 / -931.54 -85.19 / -85.19 Lab / Micro Data 07/16/25 06:05 07/16/25 06:05 Labs: Laboratory Results - last 24 hr 07/16/25 06:05: WBC 10.6, RBC 3.31 L, Hgb 9.9 L, Hct 31.5 L, MCV 95.2, MCH 29.9, MCHC 31.4 L, RDW Std Deviation 52.3 H, RDW Coeff of Hilda 15.1 H, Plt Count 190, MPV 11.3, Immature Gran % (Auto) 0.800, Neut % (Auto) 82.7 H, Lymph % (Auto) 10.3 L, [place] % (Auto) 4.8, Eos % (Auto) 1.3, Baso % (Auto) 0.1, Absolute Neuts (auto) 8.8 H, Absolute Lymphs (auto) 1.09, Nucleated RBC % 0, Sodium 144, Potassium 3.8, Chloride 107, Carbon Dioxide 30.7, Anion Gap 7, BUN 46 H, Creatinine 0.46 L, Estim Creat Clear Calc 52.51, Est GFR (MDRD) Non-Af 96, BUN/Creatinine Ratio 98.3 H, Glucose 209 H, Calcium 7.4 L Micro: Microbiology 07/15/25 07:00 Stool C. difficile GDH Antigen & Toxins - Final 07/15/25 07:00 Stool Clostridioides difficile (PCR) - Final 07/12/25 10:54 Blood Culture (Wb) - T Lumen Blood Culture - Preliminary No growth in 48 hours. 07/12/25 10:59 Blood Culture (Wb) - Anticubital Left Blood Culture - Preliminary No growth in 48 hours. 07/12/25 11:15 Urine Catheter - Catheter Urine Culture - Final Yeast, not Ashlee albicans 07/06/25 11:55 Blood Culture (Wb) - Left Wrist Blood Culture - Final No growth in 5 days. 07/06/25 11:59 Blood Culture (Wb) - Right Hand Blood Culture - Final No growth in 5 days. 07/07/25 08:35 Sputum, Induced/Lukens Gram Stain - Final 07/07/25 08:35 Sputum, Induced/Lukens Respiratory Culture - Final Culture exhibits no growth. 07/07/25 11:01 Bronchial Lavage - Bronchial Gram Stain - Final 07/07/25 11:01 Bronchial Lavage - Bronchial Respiratory Culture - Final Culture exhibits no growth. 07/06/25 15:12 Mucosa - Nasopharyngeal Respiratory Panel (PCR) - Final 07/06/25 16:10 Nasal Secretion MRSA (PCR) - Final 07/06/25 15:12 Mucosa - Nasopharyngeal Coronavirus COVID-19 PCR - Final 07/06/25 11:46 Urine Catheter - High Streptococcus pneumoniae Antigen (M - Final 07/06/25 11:46 Urine Catheter - High Legionella Antigen - Final ABG Data ABG results: ABG 07/16/25 06:16 Specimen Type ART Sample Site L Radial pH 7.49 H Bicarbonate Actual 34.6 H Total CO2 36 Base Excess 11 H O2 Saturation 90 L O2 % 40.0 ABG pCO2 45.4 H ABG pO2 54 L Herve Test Positive Respiration Rate 16 O2 Delivery Device Adult Vent Vent Mode AC Tidal Volume 375.0 POC PEEP 8 Radiography Diagnostic Testing: Radiology Impression Chest X-Ray 07/16/25 05:25 IMPRESSION: Endotracheal tube is in good position. Enteric feeding tube is in good position with its tip extending below the level of the left hemidiaphragm. Right internal jugular central catheter is in good position with its tip in the superior vena cava. Right thoracostomy pleural drainage catheter is in good position. Minimal bilateral pleural effusions. Moderate central pulmonary venous congestion. No significant pneumothorax is identified. Enlarged cardiac silhouette. Reading Location: [place] [address] Rhythm Strip Rhythm Strip: Sinus Tach Rate: 114 Physical Exam Chest Chest Narrative: Right chest- chest tube intact. No air leak noted. Less bloody fluid noted. Assessment & Plan Assessment/Plan (1) Pneumothorax on right: PLAN: I Am following this patient in conjunction with Dr. Zuleta. He will independently evaluate this patient. CXR reviewed. No current right pneumothorax noted. Continue chest tube Family meeting occurred yesterday, plan is to extubate patient in the next day or two once the niece arrives from [place] We will continue to manage patient's chest tube Charges/Coding Visit Charges Inpatient E&M: 69850 Subs Hosp L2
[2025-07-16] MEDS: Amiodarone 360 MG in Dextrose 5% Viaflo Bag 192.8 ML 16.7 MG CONT INF ×2 (08:17→20:16)
[2025-07-16] MEDS: Chlorhexidine 15 ML PO ×2 (11:04→22:00)
[2025-07-16] MEDS: Pantoprazole Sodium 40 MG in 0.9% Normal Saline (100mL MB+) 100 ML 300 MG IV (11:06)
--- NOTE | 2025-07-16 12:33 | CHAPLAIN ---
Type of Pastoral Visit ___ Initial Visit ___ Follow-up Visit ___ On-call Visit ___ General Patient Visit ___ Spiritual Assessment ___ Family Conference ___ Bereavement ___ Rapid Response ___ Code Blue _x__ Other (describe below) Pastoral Care Referral From ___ Patient ___ Family _x__ Nurse ___ Physician _x__ Spinner Concrete Pipe _x__ Housekeeping Laundry Worker ___ Other (describe below) Sacrament/Intervention ___ Active listening ___ Anointing ___ Protestant ___ Bereavement ___ Communion ___ Jillian exploration ___ ___ Life review _x__ Prayer ___ Reconciliation ___ Sacrament of Sick ___ Supportive presence ___ Wedding ___ Other (describe below) Pastoral Comments consulted with CM and LINE SERVICE SUPERVISOR for Palliative Care on updates with this patient; pt continues on the vent and is not alert enough to talk at this time; went to room and offered a silent prayer as follow up for the patient; it is understood that a niece will be coming from out of state soon but time not known; will attempt to be available to family members as needed when the time arrives;
--- NOTE | 2025-07-16 12:35 | PN.HOSP_ITS ---
Reason for Visit Chief Complaint: Dyspnea, orthopnea. Subjective Subjective Stool for C. difficile send the day prior came back positive. Patient started on vancomycin via NG. Patient remains on the vent but much more responsive compared to the day prior Objective Data Objective Data Vital Signs: Vital Signs Temp Pulse Resp BP Pulse Ox O2 Del Method O2 Flow Rate 100.1 F H 147 H 32 H 168/101 H 95 Mechanical Ventilator 40 07/16/25 11:00 07/16/25 11:05 07/16/25 11:00 07/16/25 11:05 07/16/25 11:00 07/16/25 11:00 07/16/25 08:17 FiO2 40 07/16/25 11:00 Oxygen Flow Rate (L/min) 40 Oxygen Delivery Method Mechanical Ventilator Weight: 63.5 kg Body Mass Index (BMI) 21.9 Intake & Output: Intake and Output for Last 24 Hours 07/14/25 07/15/25 07/16/25 23:59 23:59 23:59 Intake Total 2275.83 / 2391.33 3302.35 / 3368.46 1083.36 / 1083.36 Output Total 1705 / 2305 4300 / 4300 375 / 375 Balance 570.83 / 86.33 -997.65 / -931.54 708.36 / 708.36 Lab / Micro Data 07/16/25 06:05 07/16/25 06:05 Labs: Laboratory Results - last 24 hr 07/16/25 06:05: WBC 10.6, RBC 3.31 L, Hgb 9.9 L, Hct 31.5 L, MCV 95.2, MCH 29.9, MCHC 31.4 L, RDW Std Deviation 52.3 H, RDW Coeff of Hilda 15.1 H, Plt Count 190, MPV 11.3, Immature Gran % (Auto) 0.800, Neut % (Auto) 82.7 H, Lymph % (Auto) 10.3 L, [place] % (Auto) 4.8, Eos % (Auto) 1.3, Baso % (Auto) 0.1, Absolute Neuts (auto) 8.8 H, Absolute Lymphs (auto) 1.09, Nucleated RBC % 0, Sodium 144, Potassium 3.8, Chloride 107, Carbon Dioxide 30.7, Anion Gap 7, BUN 46 H, C reatinine 0.46 L, Estim Creat Clear Calc 52.51, Est GFR (MDRD) Non-Af 96, B UN/Creatinine Ratio 98.3 H, Glucose 209 H, Calcium 7.4 L Micro: Microbiology 07/15/25 07:00 Stool C. difficile GDH Antigen & Toxins - Final 07/15/25 07:00 Stool Clostridioides difficile (PCR) - Final 07/12/25 10:54 Blood Culture (Wb) - T Lumen Blood Culture - Preliminary No growth in 48 hours. 07/12/25 10:59 Blood Culture (Wb) - Anticubital Left Blood Culture - Preliminary No growth in 48 hours. 07/12/25 11:15 Urine Catheter - Catheter Urine Culture - Final Yeast, not Ashlee albicans 07/06/25 11:55 Blood Culture (Wb) - Left Wrist Blood Culture - Final No growth in 5 days. 07/06/25 11:59 Blood Culture (Wb) - Right Hand Blood Culture - Final No growth in 5 days. 07/07/25 08:35 Sputum, Induced/Lukens Gram Stain - Final 07/07/25 08:35 Sputum, Induced/Lukens Respiratory Culture - Final Culture exhibits no growth. 07/07/25 11:01 Bronchial Lavage - Bronchial Gram Stain - Final 07/07/25 11:01 Bronchial Lavage - Bronchial Respiratory Culture - Final Culture exhibits no growth. 07/06/25 15:12 Mucosa - Nasopharyngeal Respiratory Panel (PCR) - Final 07/06/25 16:10 Nasal Secretion MRSA (PCR) - Final 07/06/25 15:12 Mucosa - Nasopharyngeal Coronavirus COVID-19 PCR - Final 07/06/25 11:46 Urine Catheter - High Streptococcus pneumoniae Antigen (M - Final 07/06/25 11:46 Urine Catheter - High Legionella Antigen - Final ABG Data ABG results: ABG 07/16/25 06:16 Specimen Type ART Sample Site L Radial pH 7.49 H Bicarbonate Actual 34.6 H Total CO2 36 Base Excess 11 H O2 Saturation 90 L O2 % 40.0 ABG pCO2 45.4 H ABG pO2 54 L Herve Test Positive Respiration Rate 16 O2 Delivery Device Adult Vent Vent Mode AC Tidal Volume 375.0 POC PEEP 8 Radiography Diagnostic Testing: Radiology Impression Chest X-Ray 07/16/25 05:25 IMPRESSION: Endotracheal tube is in good position. Enteric feeding tube is in good position with its tip extending below the level of the left hemidiaphragm. Right internal jugular central catheter is in good position with its tip in the superior vena cava. Right thoracostomy pleural drainage catheter is in good position. Minimal bilateral pleural effusions. Moderate central pulmonary venous congestion. No significant pneumothorax is identified. Enlarged cardiac silhouette. Reading Location: [place] [address] Rhythm Strip Rhythm Strip: Sinus Tach Rate: 114 Physical Exam Narrative GENERAL: On the vent sedated HEENT: Atraumatic; normocephalic, ET tube EYES; Anicteric, Normal Conjunctiva NECK; supple, normal thyroid, RESPIRATORY: Diminished to auscultation, chest tube on the right side CARDIOVASCULAR: Regular S1 S2, GI: soft, normoactive bowel sounds, : No Renal angle tenderness; EXTREMITIES: No edema, no clubbing, MUSCULOSKELETAL: no muscle wasting NEURO: Unable to assess patient on the vent SKIN: No Rash PSYCH; unable to assess Assessment & Plan Assessment/Plan (1) Acute respiratory failure with hypoxia: PLAN: Plan Patient is an 80-year-old female who was admitted from the transitional care unit with hypoxia. An assessment of pneumonia with ARDS was made patient was admitted to the intensive care unit placed on noninvasive ventilation BiPAP 1. Acute hypoxic respiratory failure ? Secondary to pneumonia with ARDS admitted to the intensive care unit. Patient was placed on noninvasive ventilation BiPAP case was apparently discussed with patient regarding her CODE STATUS she is agreeable to brief trial of intubation. Consult placed to traffic superintendent.. Patient clinical condition deteriorated resulting in patient being intubated. Case was discussed with Dr. Browning with intensive care ? 07/08/2025; patient underwent bronchoscopy the day prior findings as below Bilateral infiltrate, The airway examination of the left lung was normal. Scant, mucoid secretions were found in the right mainstem bronchus. Bronchoalveolar lavage was performed.. Patient WBC count remains elevated. Patient remains on the vent. Vent adjustment deferred to traffic superintendent ? 07/09/2025; patient remains on the vent and as stated below patient did develop right-sided pneumothorax, subsequent imaging studies ordered ? 07/10/2025; Patient remains on the vent chest x-ray this morning did show interval slight improvement of right pneumothorax now measuring approximately 1.2 cm in depth, previously 1.5 cm. Otherwise, grossly unchanged lung findings. ? 07/12/2025; patient remains on the vent underwent right thoracostomy tube placement by Dr. Zuleta the day prior. ? 07/13/2025; patient remains on the vent. Oxygen requirements improving. ? 07/14/2025; patient remains on the vent weaning trial this morning unsuccessful. Plan is for family meeting on 07/15/2025 regarding goals of care ? 07/16/2025; family discussions held by Dr. Browning with intensive care and family?patient's son plan is to continue with trial of intubation with no trach and PEG. Patient will remain on the vent with tentative terminal extubation on 07/20/2025 if patient clinical condition does not improve 2. Pneumonia with suspected gram-negative organisms ? Patient presented with respiratory failure described above placed on broad- spectrum antibiotic therapy cultures sent ? 07/09/2025; patient remains on the vent cultures sent following patient bronchoscopy still pending 3. Septic shock ? Secondary to pneumonia patient had to be started on norepinephrine in addition to hydrocortisone. Remains on broad-spectrum antibiotic therapy with piperacillin/tazobactam as well as vancomycin ? 07/09/2025; patient on epinephrine on hold 4. Right-sided pneumothorax ?Chest x-ray obtained on 06/08/2025 did show Interval development of a right- sided pneumothorax. Chest tube was subsequently placed by Dr. Browning with intensive care ? 07/10/2025; Patient remains on the vent chest x-ray this morning did show interval slight improvement of right pneumothorax now measuring approximately 1.2 cm in depth, previously 1.5 cm. Otherwise, grossly unchanged lung findings.. Patient apparently has an air leak plan is to manage conservatively ? 07/11/2025;Patient chest x-ray did demonstrate mild increase in the moderate right-sided hemothorax. Right thoracostomy pleural drainage catheter was reported to be in good position. There is unchanged multifocal airspace disease. Patient being managed with chest tube to wall suction as well as minimal PEEP as much as tolerated. Plan is to repeat chest x-ray later today and if there is further increase we will consult general surgery for surgical chest tube 07/12/2025; Patient underwent right thoracostomy tube placement by Dr. Zuleta the day prior. Subsequent imaging studies demonstrated significant reduction in patient's pneumothorax ? 07/13/2021; chest x-ray this a.m. mention nonvisualization of pneumothorax. ? 07/14/2025; pneumothorax resolved 5. Paroxysmal A-fib ? Patient is on amiodarone as well as systemic anticoagulation with apixaban ? 07/09/2025; patient amiodarone has been discontinued 6. Anemia ? Secondary to chronic disorder monitoring H&H and transfuse if patient becomes symptomatic or hemoglobin falls below 7 ? 07/09/2025; patient hemoglobin level down to 10.9, was 13.1 on 07/01/2025. Will continue with monitoring with daily CBC with differential 7. Mild leukocytosis ? Secondary to patient underlying infection plan is to treat underlying clinical etiology 8. Essential hypertension ? Patient is on lisinopril held following patient intubated 9. Hypokalemia -Corrected per protocol, repeat potassium level ordered in a.m. 10. DVT prophylaxis ? Patient is on apixaban 11. Diarrhea secondary to acute C. difficile colitis ? Attributed to patient tube feeding however with patient prolong hospitalization stool for C. difficile was sent ? 07/16/2025; patient C. difficile came back positive patient was started on p.o. vancomycin Time spent in the patient's overall evaluation,decision-making process, review of diagnostic data, adjustment of management, discussion with other providers, nursing nursing and ancillary staff involved in patient's care documentation, 50 Minutes Charges/Coding Visit Charges Inpatient E&M: 48379 [facility] L3
[2025-07-16] MEDS: fentaNYL drip 100 ML 5 MCG CONT INF (14:30)
[2025-07-16] MEDS: Acetaminophen 650 MG/20 ML UDC GT (16:53)
[2025-07-16] MEDS: Norepinephrine 8 MG in 0.9% Normal Saline (250mL Bag) 242 ML 9.4 MG CONT INF (18:15)
[2025-07-16] MEDS: dexMEDEtomidine 400 MCG in 0.9% Normal Saline (100mL Bag) 96 ML CONT INF (18:15)
[2025-07-17] VITALS (30 sets, daily range): BP systolic 90–182; BP diastolic 61–120; PULSE 91–147; RESP 12–32; TEMP 37.7–39.2; O2SAT 77–100; BMI 21.4
[2025-07-17] MEDS: Norepinephrine 8 MG in 0.9% Normal Saline (250mL Bag) 242 ML 7.5 MG CONT INF (01:00)
[2025-07-17] MEDS: Vital AF 1.2 Cal Liquid 1,000 ML 55 ML GT (01:28)
[2025-07-17] MEDS: Vancomycin 125 MG/5 ML Susp PO.SYRINGE NG ×2 (01:28→06:21)
--- NOTE | 2025-07-17 05:36 | PCM.PN.INT ---
Assessment & Plan Assessment/Plan (1) Acute respiratory failure with hypoxia: (2) ARDS (adult respiratory distress syndrome): PLAN: Plan RECOMMENDATIONS: 1. Proceed with a trial of extubation. 2. Once extubated, heated high flow or BiPAP can be utilized, if needed. 3. Continue appropriate ICU prophylaxis. 4. Continue p.o. vancomycin to address C. difficile colitis. 5. CODE STATUS to be updated to DNR CCA without intubation, per conversation with family. 6. If the patient does not do well clinically following extubation, recommend initiation of comfort care measures. IMPRESSIONS: 1. Acute hypoxemic respiratory failure/ARDS The patient was just admitted to the hospital and treated for severe community-acquired pneumonia with antimicrobials and corticosteroids. She was ultimately discharged to the transitional care unit on July 02 and was readmitted on July 07 with worsening shortness of breath. Her chest imaging continues to show diffuse bilateral infiltrates, not fully explained by a cardiac etiology, with a significantly decreased P to F ratio consistent with ARDS. While an underlying infectious process was initially considered, other potential etiologies include diffuse alveolar hemorrhage, AIP, eosinophilic pneumonia and possibly cryptogenic organizing pneumonia. Autoimmune serologies were checked and found to be negative. Bronchoscopy was performed with cultures unrevealing to date. COVID, influenza and RSV PCR's were negative. There was no significant eosinophilia noted on BAL cell count. It is certainly plausible, given the patient's trajectory and onset of symptoms, that she has underlying AIP. However, she is too clinically unstable to perform any type of lung biopsy. The patient has now completed a course of broad-spectrum antimicrobials, along with a course of corticosteroids. The patient's oxygenation status has improved over the last 48 hours amidst IV diuresis. The patient was able to complete a spontaneous awakening and breathing trial this morning. Therefore, following a discussion with the patient's family, we will plan to proceed with a trial of extubation. There are no plans for reintubation if the patient does not do well clinically. If the patient decompensates after extubation, recommend initiation of comfort care measures. All of this was discussed with the patient's son and family members, who are present at the bedside. 2. Spontaneous pneumothorax The patient developed a spontaneous pneumothorax on July 09, which required chest tube placement. Recommend continuing chest tube to wall suction until the patient is able to be extubated. 3. C. difficile colitis Continue p.o. vancomycin as ordered. 4. History of paroxysmal atrial fibrillation/anxiety/hypertension Complicates care, management, recovery and prognosis. Continue supportive measures as noted above. CODE STATUS: DNR CCA without intubation. TIME: 39 minutes of critical care time, independent of procedures, was spent addressing the patient's acute hypoxemic respiratory failure/ARDS, spontaneous pneumothorax, C. difficile colitis, review of all data and collaboration with the care team. Subjective Subjective The patient was seen and examined at the bedside this morning. Events from the last 24 hours have been reviewed. The patient currently has a low-grade fever, but remains otherwise hemodynamically stable. She is currently documented to be overall net +7.7 L for the hospitalization. She remains on assist-control mode of mechanical ventilation with an FiO2 requirement of 35% and PEEP of 5. White blood cell count was noted to be 11,000. Hemoglobin and platelet count are stable. Sodium is elevated at 146 with a potassium of 3.0 and creatinine of 0.43. The patient has responded to diuretic therapy over the last 24 to 48 hours with improvement in her FiO2 noted. Following my initial evaluation of the patient this morning, she subsequently completed a spontaneous awakening trial and was placed on an SBT. The patient actually did surprisingly well on the spontaneous breathing trial and was able to nod her head appropriately to questions. Specifically, the patient was asked if she wanted to have the endotracheal tube removed, to which she repeatedly nodded her head yes. I did call and speak with the patient's son, Shola, and recommended that he come into the hospital as the patient passed a spontaneous breathing trial. I explained to him that this would be our window of opportunity to proceed with extubation. Nevertheless, it was explained to him that the patient could decompensate even after the endotracheal tube was removed. Therefore, I made it very clear to him that our plan would be to remove the endotracheal tube and not put it back, if the patient did not do well. The patient's family was all in agreement. Objective Data Objective Data The patient's most recent lab work, culture data and imaging studies have all been personally reviewed. Surface echocardiogram revealed normal LV size and function with an ejection fraction of 65%. Respiratory viral panel was negative. COVID PCR was negative. Bronchial washing cultures have not demonstrated any growth to date. Vital Signs: Vital Signs Temp Pulse Resp BP Pulse Ox O2 Del Method O2 Flow Rate 99.9 F H 98 22 H 110/69 93 Mechanical Ventilator 40 12/05/25 05:00 07/17/25 05:00 07/17/25 05:00 07/17/25 05:00 07/17/25 05:00 07/17/25 05:00 07/16/25 08:17 FiO2 35 07/17/25 05:00 Oxygen Flow Rate (L/min) 40 Oxygen Delivery Method Mechanical Ventilator Weight: 139 lb 15.896 oz Body Mass Index (BMI) 21.9 Intake & Output: Intake and Output for Last 24 Hours 07/15/25 07/16/25 07/17/25 23:59 23:59 23:59 Intake Total 3302.35 / 3368.46 1522.34 / 1536.64 697.88 / 697.88 Output Total 4300 / 4300 2175 / 2575 650 / 650 Balance -997.65 / -931.54 -652.66 / -1038.36 47.88 / 47.88 Lab / Micro Data Attestation: I reviewed the patient's lab results. 07/17/25 05:42 07/17/25 05:42 Labs: Laboratory Results - last 24 hr 07/16/25 06:05: WBC 10.6, RBC 3.31 L, Hgb 9.9 L, Hct 31.5 L, MCV 95.2, MCH 29.9, MCHC 31.4 L, RDW Std Deviation 52.3 H, RDW Coeff of Hilda 15.1 H, Plt Count 190, MPV 11.3, Immature Gran % (Auto) 0.800, Neut % (Auto) 82.7 H, Lymph % (Auto) 10.3 L, [place] % (Auto) 4.8, Eos % (Auto) 1.3, Baso % (Auto) 0.1, Absolute Neuts (auto) 8.8 H, Absolute Lymphs (auto) 1.09, Nucleated RBC % 0, Sodium 144, Potassium 3.8, Chloride 107, Carbon Dioxide 30.7, Anion Gap 7, BUN 46 H, Creatinine 0.46 L, Estim Creat Clear Calc 52.51, Est GFR (MDRD) Non-Af 96, BUN/Creatinine Ratio 98.3 H, Glucose 209 H, Calcium 7.4 L Micro: Microbiology 07/15/25 07:00 Stool C. difficile GDH Antigen & Toxins - Final 07/15/25 07:00 Stool Clostridioides difficile (PCR) - Final 07/12/25 10:54 Blood Culture (Wb) - T Lumen Blood Culture - Preliminary No growth in 48 hours. 07/12/25 10:59 Blood Culture (Wb) - Anticubital Left Blood Culture - Preliminary No growth in 48 hours. 07/12/25 11:15 Urine Catheter - Catheter Urine Culture - Final Yeast, not Ashlee albicans 07/06/25 11:55 Blood Culture (Wb) - Left Wrist Blood Culture - Final No growth in 5 days. 07/06/25 11:59 Blood Culture (Wb) - Right Hand Blood Culture - Final No growth in 5 days. 07/07/25 08:35 Sputum, Induced/Lukens Gram Stain - Final 07/07/25 08:35 Sputum, Induced/Lukens Respiratory Culture - Final Culture exhibits no growth. 07/07/25 11:01 Bronchial Lavage - Bronchial Gram Stain - Final 07/07/25 11:01 Bronchial Lavage - Bronchial Respiratory Culture - Final Culture exhibits no growth. 07/06/25 15:12 Mucosa - Nasopharyngeal Respiratory Panel (PCR) - Final 07/06/25 16:10 Nasal Secretion MRSA (PCR) - Final 07/06/25 15:12 Mucosa - Nasopharyngeal Coronavirus COVID-19 PCR - Final 07/06/25 11:46 Urine Catheter - High Streptococcus pneumoniae Antigen (M - Final 07/06/25 11:46 Urine Catheter - High Legionella Antigen - Final ABG Data ABG results: ABG 07/16/25 06:16 Specimen Type ART Sample Site L Radial pH 7.49 H Bicarbonate Actual 34.6 H Total CO2 36 Base Excess 11 H O2 Saturation 90 L O2 % 40.0 ABG pCO2 45.4 H ABG pO2 54 L Herve Test Positive Respiration Rate 16 O2 Delivery Device Adult Vent Vent Mode AC Tidal Volume 375.0 POC PEEP 8 Radiography Diagnostic Testing: Radiology Impression Chest X-Ray 07/16/25 05:25 IMPRESSION: Endotracheal tube is in good position. Enteric feeding tube is in good position with its tip extending below the level of the left hemidiaphragm. Right internal jugular central catheter is in good position with its tip in the superior vena cava. Right thoracostomy pleural drainage catheter is in good position. Minimal bilateral pleural effusions. Moderate central pulmonary venous congestion. No significant pneumothorax is identified. Enlarged cardiac silhouette. Reading Location: [place] [address] Rhythm Strip Rhythm Strip: Sinus Tach Rate: 114 Physical Exam Const Constitutional Narrative: Intubated, sedated and mechanically ventilated. No ventilator dyssynchrony noted. General Appearance: ill appearing and patient mechanically ventilated HEENT normocephalic and head/scalp atraumatic Mouth: endotracheal tube in place and OG tube in place Eyes PERRL, EOMs intact bilaterally and conjunctivae normal Neck supple General: trachea midline and CVC in place Chest inspection of chest normal Resp Resp Narrative: Right-sided chest tube in place without discernible airleak noted. Effort and Inspection: tachypneic Auscultation: diminished lung sounds; Negative for rales, rhonchi or wheezes Cardio regular rate, regular rhythm, S1 normal heart sound and S2 normal heart sound GI normal to inspection, nondistended, normoactive bowel sounds Extremity no clubbing, cyanosis or edema Skin no rashes or lesions noted Neuro Sensorium / Orientation: sedated on vent Charges/Coding Procedures Hospitalists Procedures: 53387 Critical Care 1st Hr
[2025-07-17 06:02] LABS: Hematocrit 29.8 % (37-47); Hemoglobin 9.5 g/dL (12.0-15.0); Immature Granulocytes Count 0.140 X10^3/uL (0.0-0.0); Mean Corp Hgb Conc 31.9 g/dL (32-36); Mean Corpuscular Volume 94.6 fL (81-99); Mean Platelet Vol. 11.6 fl (6.2-12.0); NRBC Flagged by Analyzer 0 % (0-5); Platelet Count 211 K/mm3 (150-450); RBC Distribution Width CV 15.3 % (11.6-14.6); RBC Distribution Width SD 51.9 fl (35.1-43.9); Red Blood Count 3.15 M/mm3 (4.2-5.4); White Blood Count 11.6 K/mm3 (4.4-11.0)
[2025-07-17] MEDS: Amiodarone 360 MG in Dextrose 5% Viaflo Bag 192.8 ML 16.7 MG CONT INF (06:21)
[2025-07-17 06:56] LABS: Anion Gap 8 (5-15); BUN 40 mg/dL (4-19); BUN/Creat Ratio 92.8 RATIO (10-20); Calcium,Total 7.3 mg/dL (7.6-11.0); Carbon Dioxide 31.9 mmol/L (21.0-32.0); Chloride 106 mmol/L (98-108); Estimated Creatinine Clearance 52.51 ml/min (50-250); Glucose 201 mg/dL (70-99); Potassium 3.0 mmol/L (3.3-5.1)
--- NOTE | 2025-07-17 07:11 | PN.HOSP_ITS ---
Reason for Visit Chief Complaint: Dyspnea, orthopnea. Subjective Subjective Patient urine cultures came back positive for yeast not Ashlee albicans. Case was discussed with infection control with patient intermittent fever decision was made to consult ID. Objective Data Objective Data Vital Signs: Vital Signs Temp Pulse Resp BP Pulse Ox O2 Del Method O2 Flow Rate 99.8 F H 98 23 H 116/80 93 Mechanical Ventilator 40 07/17/25 06:00 07/17/25 06:00 07/17/25 06:00 07/17/25 06:00 07/17/25 06:00 07/17/25 06:00 07/16/25 08:17 FiO2 35 07/17/25 06:00 Oxygen Flow Rate (L/min) 40 Oxygen Delivery Method Mechanical Ventilator Weight: 63.5 kg Body Mass Index (BMI) 21.9 Intake & Output: Intake and Output for Last 24 Hours 07/15/25 07/16/25 07/17/25 23:59 23:59 23:59 Intake Total 3302.35 / 3368.46 1522.34 / 1536.64 877.80 / 877.80 Output Total 4300 / 4300 2175 / 2575 650 / 650 Balance -997.65 / -931.54 -652.66 / -1038.36 227.80 / 227.80 Lab / Micro Data 07/17/25 05:42 07/17/25 05:42 Labs: Laboratory Results - last 24 hr 07/17/25 05:42: WBC 11.6 H, RBC 3.15 L, Hgb 9.5 L, Hct 29.8 L, MCV 94.6, MCH 30.2, MCHC 31.9 L, RDW Std Deviation 51.9 H, RDW Coeff of Hilda 15.3 H, Plt Count 211, MPV 11.6, Immature Gran % (Auto) 1.200 H, Neut % (Auto) 82.5 H, Lymph % (Auto) 10.5 L, [place] % (Auto) 4.6, Eos % (Auto) 1.1, Baso % (Auto) 0.1, Absolute Neuts (auto) 9.6 H, Absolute Lymphs (auto) 1.22, Nucleated RBC % 0, Sodium 146 H , Potassium 3.0 L, Chloride 106, Carbon Dioxide 31.9, Anion Gap 8, BUN 40 H, C reatinine 0.43 L, Estim Creat Clear Calc 52.51, Est GFR (MDRD) Non-Af 98, B UN/Creatinine Ratio 92.8 H, Glucose 201 H, Calcium 7.3 L Micro: Microbiology 07/15/25 07:00 Stool C. difficile GDH Antigen & Toxins - Final 07/15/25 07:00 Stool Clostridioides difficile (PCR) - Final 07/12/25 10:54 Blood Culture (Wb) - T Lumen Blood Culture - Preliminary No growth in 48 hours. 07/12/25 10:59 Blood Culture (Wb) - Anticubital Left Blood Culture - Preliminary No growth in 48 hours. 07/12/25 11:15 Urine Catheter - Catheter Urine Culture - Final Yeast, not Ashlee albicans 07/06/25 11:55 Blood Culture (Wb) - Left Wrist Blood Culture - Final No growth in 5 days. 07/06/25 11:59 Blood Culture (Wb) - Right Hand Blood Culture - Final No growth in 5 days. 07/07/25 08:35 Sputum, Induced/Lukens Gram Stain - Final 07/07/25 08:35 Sputum, Induced/Lukens Respiratory Culture - Final Culture exhibits no growth. 07/07/25 11:01 Bronchial Lavage - Bronchial Gram Stain - Final 07/07/25 11:01 Bronchial Lavage - Bronchial Respiratory Culture - Final Culture exhibits no growth. 07/06/25 15:12 Mucosa - Nasopharyngeal Respiratory Panel (PCR) - Final 07/06/25 16:10 Nasal Secretion MRSA (PCR) - Final 07/06/25 15:12 Mucosa - Nasopharyngeal Coronavirus COVID-19 PCR - Final 07/06/25 11:46 Urine Catheter - High Streptococcus pneumoniae Antigen (M - Final 07/06/25 11:46 Urine Catheter - High Legionella Antigen - Final Rhythm Strip Rhythm Strip: Sinus Tach Rate: 114 Physical Exam Narrative GENERAL: Patient awake on the vent HEENT: Atraumatic; normocephalic, ET tube EYES; Anicteric, Normal Conjunctiva NECK; supple, normal thyroid, RESPIRATORY: Diminished to auscultation, CARDIOVASCULAR: Regular S1 S2, GI: soft, normoactive bowel sounds, fecal management system in : No Renal angle tenderness; EXTREMITIES: No edema, no clubbing, MUSCULOSKELETAL: no muscle wasting NEURO: Following simple commands SKIN: No Rash PSYCH; unable to assess Assessment & Plan Assessment/Plan (1) Acute respiratory failure with hypoxia: PLAN: Plan Patient is an 80-year-old female who was admitted from the transitional care unit with hypoxia. An assessment of pneumonia with ARDS was made patient was admitted to the intensive care unit placed on noninvasive ventilation BiPAP 1. Acute hypoxic respiratory failure ? Secondary to pneumonia with ARDS admitted to the intensive care unit. Patient was placed on noninvasive ventilation BiPAP case was apparently discussed with patient regarding her CODE STATUS she is agreeable to brief trial of intubation. Consult placed to cigarette package examiner.. Patient clinical condition deteriorated resulting in patient being intubated. Case was discussed with Dr. Browning with intensive care ? 07/08/2025; patient underwent bronchoscopy the day prior findings as below Bilateral infiltrate, The airway examination of the left lung was normal. Scant, mucoid secretions were found in the right mainstem bronchus. Bronchoalveolar lavage was performed.. Patient WBC count remains elevated. Patient remains on the vent. Vent adjustment deferred to cigarette package examiner ? 07/09/2025; patient remains on the vent and as stated below patient did develop right-sided pneumothorax, subsequent imaging studies ordered ? 07/10/2025; Patient remains on the vent chest x-ray this morning did show interval slight improvement of right pneumothorax now measuring approximately 1.2 cm in depth, previously 1.5 cm. Otherwise, grossly unchanged lung findings. ? 07/12/2025; patient remains on the vent underwent right thoracostomy tube placement by Dr. Zuleta the day prior. ? 07/13/2025; patient remains on the vent. Oxygen requirements improving. ? 07/14/2025; patient remains on the vent weaning trial this morning unsuccessful. Plan is for family meeting on 07/15/2025 regarding goals of care ? 07/16/2025; family discussions held by Dr. Browning with intensive care and family?patient's son plan is to continue with trial of intubation with no trach and PEG. Patient will remain on the vent with tentative terminal extubation on 07/20/2025 if patient clinical condition does not improve 2. Pneumonia with suspected gram-negative organisms ? Patient presented with respiratory failure described above placed on broad- spectrum antibiotic therapy cultures sent ? 07/09/2025; patient remains on the vent cultures sent following patient bronchoscopy still pending 3. Septic shock ? Secondary to pneumonia patient had to be started on norepinephrine in addition to hydrocortisone. Remains on broad-spectrum antibiotic therapy with piperacillin/tazobactam as well as vancomycin ? 07/09/2025; patient on epinephrine on hold 4. Right-sided pneumothorax ?Chest x-ray obtained on 06/08/2025 did show Interval development of a right- sided pneumothorax. Chest tube was subsequently placed by Dr. Browning with intensive care ? 07/10/2025; Patient remains on the vent chest x-ray this morning did show interval slight improvement of right pneumothorax now measuring approximately 1.2 cm in depth, previously 1.5 cm. Otherwise, grossly unchanged lung findings.. Patient apparently has an air leak plan is to manage conservatively ? 07/11/2025;Patient chest x-ray did demonstrate mild increase in the moderate right-sided hemothorax. Right thoracostomy pleural drainage catheter was reported to be in good position. There is unchanged multifocal airspace disease. Patient being managed with chest tube to wall suction as well as minimal PEEP as much as tolerated. Plan is to repeat chest x-ray later today and if there is further increase we will consult general surgery for surgical chest tube 07/12/2025; Patient underwent right thoracostomy tube placement by Dr. Zuleta the day prior. Subsequent imaging studies demonstrated significant reduction in patient's pneumothorax ? 07/13/2021; chest x-ray this a.m. mention nonvisualization of pneumothorax. ? 07/14/2025; pneumothorax resolved 5. Paroxysmal A-fib ? Patient is on amiodarone as well as systemic anticoagulation with apixaban ? 07/09/2025; patient amiodarone has been discontinued 6. Anemia ? Secondary to chronic disorder monitoring H&H and transfuse if patient becomes symptomatic or hemoglobin falls below 7 ? 07/09/2025; patient hemoglobin level down to 10.9, was 13.1 on 07/01/2025. Will continue with monitoring with daily CBC with differential 7. Mild leukocytosis ? Secondary to patient underlying infection plan is to treat underlying clinical etiology 8. Essential hypertension ? Patient is on lisinopril held following patient intubated 9. Hypokalemia -Corrected per protocol, repeat potassium level ordered in a.m. 10. DVT prophylaxis ? Patient is on apixaban 11. Diarrhea secondary to acute C. difficile colitis ? Attributed to patient tube feeding however with patient prolong hospitalization stool for C. difficile was sent ? 07/16/2025; patient C. difficile came back positive patient was started on p.o. vancomycin 12. Acute cystitis with Ashlee ?Patient urine cultures came back positive for yeast not Ashlee albicans. Case was discussed with infection control with patient intermittent fever decision was made to consult ID. Time spent in the patient's overall evaluation,decision-making process, review of diagnostic data, adjustment of management, discussion with other providers, nursing nursing and ancillary staff involved in patient's care documentation, 40 Minutes Charges/Coding Visit Charges Inpatient E&M: 19842 Subs Hosp L2
[2025-07-17] MEDS: CHLORHEXIDINE GLUC 2% CLOTH 1 EACH TOWELETTE TOPICAL (08:05)
[2025-07-17] MEDS: Chlorhexidine 15 ML PO (08:05)
[2025-07-17] MEDS: 0.9% Saline Lock 10 ML Syringe IV ×3 (08:14→13:47)
[2025-07-17] MEDS: Pantoprazole Sodium 40 MG in 0.9% Normal Saline (100mL MB+) 100 ML 300 MG IV (08:21)
[2025-07-17 08:55] LABS: Color, Urine Yellow (Yellow); Glucose, Dipstick Normal (Normal); Ketone-Dipstick Negative (Negative); Leukocyte Esterase-Dipstick 500 /ul (Negative); Mucous, Urine 0 SEEN /hpf (<or=2+); Nitrite-Dipstick Negative (Negative); Occult Blood-Urine 250 /ul (Negative); Protein-Dipstick 100 mg/dl (Negative); Specific Gravity, Urine 1.010 (1.002-1.030); Squamous Epithelial Cells - UA 0 SEEN /hpf (5-10); Urine Bilirubin Dipstick Negative (Negative)
--- NOTE | 2025-07-17 09:07 | RAD_ITS ---
PROCEDURE: CHEST 1 VIEW (PORTABLE) 07/17/2025 REASON FOR EXAM: F/U CHEST TUBE TECHNIQUE: Frontal view of the chest. COMPARISON: Prior study dated July 16, 2025. FINDINGS: Hardware: Endotracheal tube is in-situ. The tip is at 2.7 cm proximal the helga. An orogastric tube is seen with the tip in the body of the stomach. A right-sided central venous catheter is seen with the tip at the junction of the superior vena cava and right atrium. A right-sided chest tube is once again seen with the tip in the medial aspect of the right upper lobe. Heart: Heart size is mildly enlarged. Lungs: Stable small left pleural effusion with left basilar infiltration. Improved aeration of the right lung. Bones: Stable appearance of the multiple right rib fractures. RAD/Chest 1 View (Portable) IMPRESSION: No evidence of pneumothorax. Persistent infiltrate in the left lower lobe with small left pleural effusion. There has been improved aeration of the right lung. No evidence of right-sided pneumothorax. Reading Location: [place] [id number]
[2025-07-17 09:17] LABS: Red Blood Cells-Urine 10-25 SEEN /hpf (0-5); Yeast-Urine 4+ /hpf (None Seen)
--- NOTE | 2025-07-17 11:02 | CASEMGMT ---
Social Work Per physician, plan is to extubate this morning. RADHA met with pt's son Michael, nieces Shelby and Nella and friend Kika. Support provided to pt's family. SW reiterated conversation between physician and family and pt's wishes that once extubated, pt would not be reintubated. Sy and nieces confirm understanding and agreement that the pt will not be reintubated. RADHA remained with family during extubation and support provided to family. NEHAL Ivory
--- NOTE | 2025-07-17 12:45 | CCN.REFER ---
Social Work SW met with pt's son Michael and pt's niece Shelby. Extensive conversation regarding family coping with pt end of life and emotional support provided to pt family. NEHAL Ivory
--- NOTE | 2025-07-17 14:07 | NURSING ---
Noted to be asystole on monitor. No heart tones auscultated, verified w/ Coni STEPHENS. Several family members at bedside, much support given
--- NOTE | 2025-07-17 14:22 | PCM.DEATH ---
Preliminary Cause of Preliminary Cause of Preliminary Cause of : ARDS Pneumonia with suspected gram-negative organisms C. difficile colitis Acute Ashlee UTI Date of Admission: 07/06/25 Date of : 07/17/25 Principle Diagnosis Problem List: Active and Suspected Problems (Updated 07/14/25 @ 11:55 by MARIO Avery) Goals of care, counseling/discussion (Acute) Palliative care encounter (Acute) Pneumothorax on right (Acute) ARDS (adult respiratory distress syndrome) (Acute) Respiratory failure (Acute) Acute respiratory failure with hypoxia (Acute) Respiratory failure (Acute) Hospital Course Patient is an 80-year-old female who was admitted from the transitional care unit with hypoxia. An assessment of pneumonia with ARDS was made patient was admitted to the intensive care unit placed on noninvasive ventilation BiPAP. Patient clinical condition deteriorated resulting in patient being placed on the vent. Patient developed right-sided pneumothorax was on the vent resulting in the chest tube being placed. Patient pneumothorax did resolve with placement of chest tube. Patient did develop diarrhea stool for C. difficile came back positive. Patient also grew Ashlee not albicans in the urine. Patient had a protracted stay on the vent.. Held family discussion. Decision was made to terminally wean patient off the vent and and initiate comfort measures only. Patient was found without spontaneous breathing as well as heart tones. Patient was pronounced on 07/17/2025 at 1407 Assessment & Plan Assessment/Plan (1) Respiratory failure: QUALIFIERS: Chronicity: acute Respiratory failure complication: hypoxia Qualified Code(s): J96.01 - Acute respiratory failure with hypoxia (2) ARDS (adult respiratory distress syndrome): (3) Pneumothorax on right: PLAN: Plan As documented above Time spent on attempted patient on the day of her ;45 min Visit Charges Inpatient E&M: 70482 Disch Hosp >30min
--- NOTE | 2025-07-17 14:24 | PCM.PN.PAL ---
Subjective Subjective 07/17/25: Patient was compassionately liberated from the ventilator this morning. On assessment she has transitioned and her is imminent. Multiple family members at bedside as well as pastoral services. Patient presentation was distressing to the patient's son, so I. I did request nursing to provide comfort medications as the patient was nearing and appeared to be uncomfortable. I do anticipate minutes to hours. As she is mottled and guppy breathing I did provide a very limited physical assessment as appropriate for such a circumstance. Family had no questions. Compassionate support provided. 07/15/25:prior to family meeting I reviewed labs, radiological studies and documentation, as well as meeting with Dr. Browning to discuss pt case. Myself, RADHA Pace and Dr. Browning met with pt shamaMichael and niece Nella in the room with niece Nishi on speaker phone. Nam Staley discussed pt wishes that she expressed prior to intubation in which she made it very clear that she would not want trach/PEG and LTAC. Son, Michael, was having difficulty grasping that his mother had mad her decision prior to her intubation and that she was open to a time limited trial on the vent. She has gotten progressively worse during this hospitalization and aggressive medical management. Pt's nieces are both in agreement that Alexa made it clear to them that she would not want to live in a deli worker care facility and no trach or peg. They are being very supportive of Michael during this difficult time and are supportive of compassionate liberation from the vent. Nishi will be arriving from [place]. Michael is possibly wanting to wait until the 14 days are up before removing the vent. Alexa appears to be very uncomfortable, at this time. Recommendation is to remove the vent sooner than later to alleviate further suffering but the decision is with the family. It was agreed to continue medical management as currently performing and continue discussions with family, once Nishi has arrived. All questions the family had were answered. Pallaitive care will continue to follow for support as clinical pricture evolves. Objective Data Objective Data Vital Signs: Vital Signs Temp Pulse Resp BP Pulse Ox O2 Del Method O2 Flow Rate 102.5 F H 128 H 32 H 118/77 89 Bi-pap 70 07/17/25 12:00 07/17/25 13:00 07/17/25 13:00 07/17/25 13:00 07/17/25 13:00 07/17/25 13:00 07/17/25 10:10 FiO2 40 07/17/25 13:00 Oxygen Flow Rate (L/min) 70 Oxygen Delivery Method Bi-pap Weight: 136 lb 3.931 oz Body Mass Index (BMI) 21.4 Intake & Output: Intake and Output for Last 24 Hours 07/15/25 07/16/25 07/17/25 23:59 23:59 23:59 Intake Total 3302.35 / 3368.46 1522.34 / 1536.64 1571.32 / 1571.32 Output Total 4300 / 4300 2175 / 2575 900 / 900 Balance -997.65 / -931.54 -652.66 / -1038.36 671.32 / 671.32 Lab / Micro Data Attestation: I reviewed the patient's lab results. Lab results narrative: Patient's labs are currently inconsequential 07/17/25 05:42 07/17/25 05:42 Labs: Laboratory Results - last 24 hr 07/17/25 05:42: WBC 11.6 H, RBC 3.15 L, Hgb 9.5 L, Hct 29.8 L, MCV 94.6, MCH 30.2, MCHC 31.9 L, RDW Std Deviation 51.9 H, RDW Coeff of Hilda 15.3 H, Plt Count 211, MPV 11.6, Immature Gran % (Auto) 1.200 H, Neut % (Auto) 82.5 H, Lymph % (Auto) 10.5 L, [place] % (Auto) 4.6, Eos % (Auto) 1.1, Baso % (Auto) 0.1, Absolute Neuts (auto) 9.6 H, Absolute Lymphs (auto) 1.22, Nucleated RBC % 0, Sodium 146 H, Potassium 3.0 L, Chloride 106, Carbon Dioxide 31.9, Anion Gap 8, BUN 40 H, Creatinine 0.43 L, Estim Creat Clear Calc 52.51, Est GFR (MDRD) Non-Af 98, BUN/Creatinine Ratio 92.8 H, Glucose 201 H, Calcium 7.3 L 07/17/25 08:38: Urine Color Yellow, Urine Clarity Sl. Cloudy, Urine pH 6.5, Ur Specific [place] 1.010, Urine Protein 100 H, Urine Glucose (UA) Normal, Urine Ketones Negative, Urine Occult Blood 250 H, Urine Nitrite Negative, Urine Bilirubin Negative, Urine Urobilinogen Normal, Ur Leukocyte Esterase 500 H, Urine RBC 10-25 SEEN, Urine WBC 25-50 SEEN, Ur Squamous Epith Cells 0 SEEN, Urine Bacteria 0 SEEN, Urine Mucus 0 SEEN, Urine Yeast 4+ Micro: Microbiology 07/17/25 09:30 Sputum, Induced/Lukens Gram Stain - Final 07/12/25 10:59 Blood Culture (Wb) - Anticubital Left Blood Culture - Final No growth in 5 days. 07/12/25 10:54 Blood Culture (Wb) - T Lumen Blood Culture - Final No growth in 5 days. 07/17/25 09:30 Mucosa - Nasopharyngeal SARS-CoV-2, Influenza & RSV (PCR) - Final 07/15/25 07:00 Stool C. difficile GDH Antigen & Toxins - Final 07/15/25 07:00 Stool Clostridioides difficile (PCR) - Final 07/12/25 11:15 Urine Catheter - Catheter Urine Culture - Final Yeast, not Ashlee albicans 07/06/25 11:55 Blood Culture (Wb) - Left Wrist Blood Culture - Final No growth in 5 days. 07/06/25 11:59 Blood Culture (Wb) - Right Hand Blood Culture - Final No growth in 5 days. 07/07/25 08:35 Sputum, Induced/Lukens Gram Stain - Final 07/07/25 08:35 Sputum, Induced/Lukens Respiratory Culture - Final Culture exhibits no growth. 07/07/25 11:01 Bronchial Lavage - Bronchial Gram Stain - Final 07/07/25 11:01 Bronchial Lavage - Bronchial Respiratory Culture - Final Culture exhibits no growth. 07/06/25 15:12 Mucosa - Nasopharyngeal Respiratory Panel (PCR) - Final 07/06/25 16:10 Nasal Secretion MRSA (PCR) - Final 07/06/25 15:12 Mucosa - Nasopharyngeal Coronavirus COVID-19 PCR - Final 07/06/25 11:46 Urine Catheter - High Streptococcus pneumoniae Antigen (M - Final 07/06/25 11:46 Urine Catheter - High Legionella Antigen - Final Radiography Diagnostic Testing: Radiology Impression Chest X-Ray 07/17/25 09:07 IMPRESSION: No evidence of pneumothorax. Persistent infiltrate in the left lower lobe with small left pleural effusion. There has been improved aeration of the right lung. No evidence of right-sided pneumothorax. Reading Location: [place] [id number] Rhythm Strip Rhythm Strip: Sinus Tach Rate: 114 Physical Exam Narrative Limited physical exam as patient is currently actively dying Const Constitutional Narrative: Patient is mottled, utilizing accessory muscles to breathe, guppy breathing is eminent General Appearance: ill appearing HEENT normocephalic Resp Effort and Inspection: retractions, uses accessory muscles and paradoxical thoraco-abdominal movements Cardio Rate: tachycardic GI GI Narrative: Did not assessed as not appropriate Neuro Neuro Narrative: Patient is obtunded [place] Coma Scale: document GCS findings None None None 3 Psych Psych Narrative: Unable to assess Charges/Coding Palliative Care Palliative Care: [id number] Follow up 25-34 min Consulation Summary Current admission Current Code Status: dnrcc Associated Diagnosis: ards Consult Data Date of Consult: 07/14/25 Location of consult: ICU Reason for referral: goals Referral source: MIKE/RADHA Palliative care diagnosis (Summary list): respiratory failure Palliative care services/treatment (Accepted, as consult): accepted by family Case discussed with referring provider: symptom mgmt with nursing Palliative Assessment Advanced Directive - Current Admission Advance Directive: Advance Directive ON ADMISSION - REFERENCE Which Advance Directives Living Will,Power of 07/06/25 15:04 documents are scanned in? Police Department Secretary Do you have a Healthcare Yes 07/06/25 15:04 Living Will? Is a Healthcare Living Will No, requested patient bring 07/06/25 15:04 present in the medical record? copy into [facility] Do you have a Healthcare Power Yes 07/06/25 15:04 of Police Department Secretary? Is a Healthcare Power of No, requested patient bring 07/06/25 15:04 Police Department Secretary present in the copy into [facility] medical rec Do You Want Additional Declined 07/06/25 15:04 Information on Advanced Directives or Healthcare Proxy/DPOA comments: Son sy Symptoms Dyspnea symptoms: Severe Impression & Recommendations Impressions Impressions: Patient is actively dying. Recommentation Palliative recommendations: adhering to the patient's requests prior to intubation where she stated that she would not want trach and PEG, per documentation. Encouter Achieved as a result of this Palliative Care Encounter: [ [id number], [id number], [id number]] minutes were spent in total for this visit which consisted, primarily of counseling and education dealing with the complex and emotionally intense issues of symptom management and palliative care in the setting of serious and potentially life-threatening illness. Review of documentation, labs and radiological studies. ?Patient/family had the opportunity to ask questions Plan (1) ARDS (adult respiratory distress syndrome): (2) Respiratory failure: QUALIFIERS: Chronicity: acute Respiratory failure complication: hypoxia Qualified Code(s): J96.01 - Acute respiratory failure with hypoxia (3) Pneumothorax on right: (4) Palliative care encounter: (5) Goals of care, counseling/discussion: PLAN: Plan *Medical management per primary team *Emotional support provided *Patient's time of 1422. ROS ROS Narrative Admission Review of Systems: CONSTITUTIONAL: No weight loss, weakness or fatigue however, FEBRILE in the ED with also chills reported per family. HEENT: Eyes: No visual loss, blurred vision, double vision or yellow sclerae. Ears, Nose, Throat: No hearing loss, sneezing, congestion, runny nose or sore throat. SKIN: No rash or itching, lesions, wounds except + occasional stage ecchymoses, abrasions. CARDIOVASCULAR: + Dyspnea, orthopnea. No chest pain, chest pressure or chest discomfort, palpitations, edema, syncopal events. RESPIRATORY: + Dyspnea, occasional cough with petty/frothy sputum. No marked wheezing, hemoptysis. GASTROINTESTINAL: No anorexia, nausea, vomiting or diarrhea, abdominal pain, melena, BRBPR. GENITOURINARY: No dysuria, frequency, urgency or retention. NEUROLOGICAL: No headache, dizziness, syncope, paralysis, ataxia, numbness or tingling in the extremities, focal weakness, change in bowel or bladder control, seizure. MUSCULOSKELETAL: No muscle, back pain, joint pain or stiffness. HEMATOLOGIC: No anemia. + Easy bleeding/bruising. LYMPHATICS: No enlarged nodes. No history of splenectomy. PSYCHIATRIC: + History of anxiety. ENDOCRINOLOGIC: No reports of sweating, cold or heat intolerance. No polyuria or polydipsia. ALLERGIES: No history of asthma, hives, eczema or rhinitis. Review of Systems ROS Unobtainable: due to mental status Constitutional Constitutional: Denies chills or fever(s) Eyes Eyes: Denies blurry vision or change in vision ENT HEENT: Denies rhinorrhea or sore throat Cardiovascular Cardiovascular: Denies chest pain or palpitations Respiratory/Chest Respiratory/Chest: Reports dyspnea; Denies cough Gastrointestinal Gastrointestinal: Denies nausea or vomiting Genitourinary Genitourinary: Denies dysuria or hematuria Musculoskeletal Musculoskeletal: Reports back pain; Denies neck pain Integumentary Integumentary: Denies rash Neurologic Neurologic: Reports headache(s); Denies weakness Allergic/Immunologic Allergic/Immunologic: Denies urticaria
--- NOTE | 2025-07-17 14:52 | NURSING ---
Pt rec'd approx 40cc of meds/fluids during last hour of life
--- NOTE | 2025-07-17 15:32 | NURSING ---
Taken to the morgue at this time
--- NOTE | 2025-07-17 17:04 | CHAPLAIN ---
Type of Pastoral Visit ___ Initial Visit ___ Follow-up Visit ___ On-call Visit ___ General Patient Visit ___ Spiritual Assessment ___ Family Conference ___ Bereavement ___ Rapid Response ___ Code Blue ___ Other (describe below) Pastoral Care Referral From ___ Patient ___ Family ___ Nurse ___ Physician ___ Chaplain Resident ___ Heat Reader ___ Other (describe below) Sacrament/Intervention ___ Active listening ___ Anointing ___ Judaism ___ Bereavement ___ Communion ___ Jillian exploration ___ ___ Life review ___ Prayer ___ Reconciliation ___ Sacrament of Sick ___ Supportive presence ___ Wedding ___ Other (describe below) Pastoral Comments patient before being seen today; no family members were present after the
== END 2025-07-17 15:39 | DRG 207 ==
LOC: ED 14:25 → ICU 14:41
PROVIDERS: Internal Medicine; Internal Medicine Critical Care Medicine; Internal Medicine Infectious Disease; Admitting Provider Family Medicine; Emergency Provider Emergency Medicine; PCP Family Medicine; Visit Provider Internal Medicine
PROC: 0BJ08ZZ Inspection of Tracheobronchial Tree, Via Natural or Artificial Opening Endoscopic (ICD-10-PCS; CPT 31622; principal; 2025-07-07 09:15)
DX: J15.69 Pneumonia due to other Gram-negative bacteria (principal); A41.9 Sepsis, unspecified organism; R65.21 Severe sepsis with septic shock; J80 Acute respiratory distress syndrome; J84.116 Cryptogenic organizing pneumonia; A04.72 Enterocolitis due to Clostridium difficile, not specified as recurrent; E80.21 Acute intermittent (hepatic) porphyria; J95.850 Mechanical complication of respirator; J93.83 Other pneumothorax; J93.82 Other air leak; R04.2 Hemoptysis; N30.00 Acute cystitis without hematuria; B37.49 Other urogenital candidiasis; L89.150 Pressure ulcer of sacral region, unstageable; Z51.5 Encounter for palliative care; Z66 Do not resuscitate; I12.9 Hypertensive chronic kidney disease with stage 1 through stage 4 chronic kidney disease, or unspecified chronic kidney disease; I48.0 Paroxysmal atrial fibrillation; E78.5 Hyperlipidemia, unspecified; N18.2 Chronic kidney disease, stage 2 (mild); F41.9 Anxiety disorder, unspecified; E87.6 Hypokalemia; D63.8 Anemia in other chronic diseases classified elsewhere; Z79.01 Long term (current) use of anticoagulants; Z79.899 Other long term (current) drug therapy; Y84.8 Other medical procedures as the cause of abnormal reaction of the patient, or of later complication, without mention of misadventure at the time of the procedure; Y92.230 Patient room in hospital as the place of occurrence of the external cause
CPT/HCPCS: 31500; 31720; 36415; 36600; 51702; 71045; 74018; 80048; 80053; 80061; 80202; 81001; 82550; 82803; 83605; 83735; 83880; 84100; 84145; 84443; 84478; 84484; 85025; 85379; 85610; 85730; 86037; 86038; 86200; 86225; 86235; 86431; 86738; 87015; 87040; 87070; 87077; 87086; 87088; 87101; 87116; 87186; 87205; 87206; 87252; 87449; 87493; 87631; 87633; 87635; 87641; 88108; 88305; 88313; 89050; 93005; 93306; 94002; 94003; 94640; 94660; 94668; 94762; 97803; 99252; 99285; A4216; C1751; G0463; J1938